=== PATIENT | male | born 1960 | race Caucasian/White ===

== ENCOUNTER 2017-04-24 18:37 | Inpatient (IN) | payer SELFPAY ==
[~2017-04-24] VITALS: Ht 172.7 cm; Wt 90.7 kg
[2017-04-24 19:20] LABS: BASO % 0 % (0-3); EOS % 1 % (0-3); HEMATOCRIT 39.8 % (39.0-53.0); HEMOGLOBIN 13.4 g/dL (13.0-17.5); LYMPH # 1.6 x10^3/uL (1.0-4.8); LYMPH % 18 % (24-48); MEAN CORPUSCULAR HEMOGLOBIN 31 pg (25-35); MEAN CORPUSCULAR HGB CONC 34 g/dL (31-37); MEAN CORPUSCULAR VOLUME 94 fL (79-100); MONO % 8 % (0-9); NEUT % 73 % (31-73); PLATELET COUNT 81 x10^3/uL (140-400); RED BLOOD COUNT 4.26 x10^6/uL (4.30-5.70); WHITE BLOOD COUNT 8.9 x10^3/uL (4.0-11.0)
[2017-04-24] MEDS: fentaNYL PF VIAL 100 MCG/2 ML VIAL IV PRN ×2 (19:20→20:55)
[2017-04-24 19:33] LABS: CALCIUM 8.4 mg/dL (8.5-10.1); CREATININE 0.7 mg/dL (0.7-1.3); GFR 117.5; POTASSIUM 3.6 mmol/L (3.5-5.1)
[2017-04-24 19:37] LABS: ALBUMIN 2.8 g/dL (3.4-5.0); ALBUMIN/GLOBULIN RATIO 0.5 (1.0-1.7); C-REACTIVE PROTEIN 95.8 mg/L (0-3.3); TOTAL BILIRUBIN 0.9 mg/dL (0.2-1.0); TOTAL PROTEIN 8.3 g/dL (6.4-8.2)
[2017-04-24] MEDS ORDERED: CLINDAMYCIN 600MG PREMIX 50 ML IV ONE (20:00)
[2017-04-24] MEDS ORDERED: fentaNYL PF VIAL 100 MCG/2 ML VIAL IV PRN (20:30)
[2017-04-24] MEDS ORDERED: ACETAMINOPHEN 325 MG TABLET. PO PRN (20:30)
[2017-04-24] MEDS ORDERED: ONDANSETRON PF 4 MG/2 ML VIAL. IV PRN (20:30)
--- NOTE | 2017-04-24 20:36 | PHYS DOC ---
Past Medical History Past Medical History: Asthma, Other Additional Past Medical Histor: CELLULITIS,BORDERLINE HTN Past Surgical History: Other Additional Past Surgical Histo: L WRIST ORIF,L KNEE Additional Information: SMOKES OCCASSIONAL CIGAR Alcohol Use: Occasionally Additional Information: DRINKS 2 TO 3 TIMES A WEEK Drug Use: None Adult General Chief Complaint Chief Complaint: LOWER EXTREMITY SWELLING HPI HPI Patient is a 56 year old male who presents with left lower extremity cellulitis. The patient reports onset of left calf swelling & erythema near his knee yesterday, today quickly spread distally to his ankle. Reports pain with ambulation. Denies fevers/chills, vomiting, chest pain, shortness of breath. Current every day smoker. Denies known past medical history, not diabetic. Denies trauma to this leg, no recent travel or surgery. Does not have a PCP. Review of Systems Review of Systems Constitutional: Denies fever or chills HENT: Denies nasal congestion or sore throat Respiratory: Denies cough or shortness of breath Cardiovascular: Denies chest pain or edema GI: Denies abdominal pain, nausea, vomiting Musculoskeletal: Reports calf pain and swelling Integument: Reports redness to calf Neurologic: Denies headache, focal weakness or sensory changes Current Medications Current Medications Current Medications Medications (Trade) Dose Ordered Sig/Marc Start Time Stop Time Status Last Admin Dose Admin Acetaminophen (Tylenol) 650 mg PRN Q4HRS PRN 04/24/17 20:30 04/25/17 20:29 UNV Clindamycin Phosphate 50 ml @ 100 mls/hr 1X ONCE 04/24/17 20:00 04/24/17 20:29 04/24/17 19:53 100 MLS/HR Fentanyl Citrate (Fentanyl 2ml Vial) 50 mcg PRN Q2HR PRN 04/24/17 20:30 04/25/17 20:29 UNV Ondansetron HCl (Zofran) 4 mg PRN Q8HRS PRN 04/24/17 20:30 04/25/17 20:29 UNV Allergies Allergies Allergies Coded Allergies Type Severity Reaction Last Updated Verified Penicillins Allergy Severe ANPHYLAXIS 04/24/17 Yes Uncoded Allergies Type Severity Reaction Last Updated Verified TROY Allergy Severe ANAPHYLAXIS 04/24/17 Physical Exam Physical Exam Constitutional: obese, no acute distress, non-toxic appearance. HENT: Normocephalic, atraumatic, bilateral external ears normal, oropharynx moist, nose normal. Eyes: conjunctiva normal, no discharge. Cardiovascular: RRR, no murmurs, no edema. Lungs & Thorax: LCTAB, no wheezing, no respiratory distress. Abdomen: soft, nontender, nondistended. Skin: see extremity report below. Back: No tenderness. Extremities: left calf diffuse erythema from knee to ankle, swelling, calf tenderness is present, dp/pt 2+, sensation intact to foot, no pain with flexion/ extension at knee or ankle. Neurologic: Alert and oriented X 3, no focal deficits noted. Psychologic: Affect normal, judgement normal, mood normal. Current Patient Data Vital Signs Vital Signs Date Time Temp Pulse Resp B/P (MAP) Pulse Ox O2 Delivery O2 Flow Rate FiO2 04/24/17 19:20 18 97 Room Air 04/24/17 18:48 98.2 86 165/95 (118) 98.2 Lab Values Laboratory Tests Test 04/24/17 19:07 White Blood Count 8.9 x10^3/uL (4.0-11.0) Red Blood Count 4.26 x10^6/uL (4.30-5.70) L Hemoglobin 13.4 g/dL (13.0-17.5) Hematocrit 39.8 % (39.0-53.0) Mean Corpuscular Volume 94 fL (79-100) Mean Corpuscular Hemoglobin 31 pg (25-35) Mean Corpuscular Hemoglobin Concent 34 g/dL (31-37) Red Cell Distribution Width 14.0 % (11.5-14.5) Platelet Count 81 x10^3/uL (140-400) L Neutrophils (%) (Auto) 73 % (31-73) Lymphocytes (%) (Auto) 18 % (24-48) L Monocytes (%) (Auto) 8 % (0-9) Eosinophils (%) (Auto) 1 % (0-3) Basophils (%) (Auto) 0 % (0-3) Neutrophils # (Auto) 6.5 x10^3uL (1.8-7.7) Lymphocytes # (Auto) 1.6 x10^3/uL (1.0-4.8) Monocytes # (Auto) 0.7 x10^3/uL (0.0-1.1) Eosinophils # (Auto) 0.1 x10^3/uL (0.0-0.7) Basophils # (Auto) 0.0 x10^3/uL (0.0-0.2) Sodium Level 133 mmol/L (136-145) L Potassium Level 3.6 mmol/L (3.5-5.1) Chloride Level 97 mmol/L (98-107) L Carbon Dioxide Level 25 mmol/L (21-32) Anion Gap 11 (6-14) Blood Urea Nitrogen 5 mg/dL (8-26) L Creatinine 0.7 mg/dL (0.7-1.3) Estimated GFR (Cockcroft-Gault) 117.5 BUN/Creatinine Ratio 7 (6-20) Glucose Level 205 mg/dL (70-99) H Calcium Level 8.4 mg/dL (8.5-10.1) L Total Bilirubin 0.9 mg/dL (0.2-1.0) Aspartate Amino Transferase (AST) 33 U/L (15-37) Alanine Aminotransferase (ALT) 21 U/L (16-63) Alkaline Phosphatase 101 U/L (46-116) C-Reactive Protein, Quantitative 95.8 mg/L (0-3.3) H Total Protein 8.3 g/dL (6.4-8.2) H Albumin 2.8 g/dL (3.4-5.0) L Albumin/Globulin Ratio 0.5 (1.0-1.7) L Laboratory Tests 04/24/17 19:07 Laboratory Tests 04/24/17 19:07 EKG EKG [] Radiology/Procedures Radiology/Procedures [] Course & Med Decision Making Course & Med Decision Making Pertinent Labs and Imaging studies reviewed. (See chart for details) The patient presents with lower extremity cellulitis which is diffuse and progressed quickly today. Patient is not septic, pain control with medication here. No crepitus on exam to suggest necrotizing infection. I did recommend admission to the hospital for close monitoring and IV antibiotics. The patient agrees with plan of care. Discussed with Dr. Stiles who agrees to admit to inpatient status to a med surg bed. Venous ultrasound is pending at time of admission. Will follow up results or have results called to Dr. Stiles. The patient is being admitted in stable condition. [] Dragon Disclaimer Dragon Disclaimer This electronic medical record was generated, in whole or in part, using a voice recognition dictation system. Departure Departure Impression: Primary Impression: Cellulitis Disposition: ADMITTED INPATIENT Admitting Physician: Maribel Stiles Condition: STABLE Problem Qualifiers Primary Impression: Cellulitis Site of cellulitis: extremity Site of cellulitis of extremity: lower extremity Laterality: left Qualified Codes: L03.116 - Cellulitis of left lower limb MARIAH CHESTER MD Apr 24, 2017 20:36
--- NOTE | 2017-04-24 21:28 | HP ---
ADMIT DATE: 04/24/2017 CHIEF COMPLAINT: Left lower extremity pain, swelling and erythema. HISTORY OF PRESENT ILLNESS: The patient is a pleasant middle-aged white male who developed some cellulitis in his left lower extremity. It has been painful. It has been spreading somewhat rapidly over the past 48 hours. He has got 9/10 pain, but then we gave him some fentanyl. It is down to 3/10. Upon my arrival to the ER, the cellulitis is at the bottom of the knee all the way down to the ankle. I did go ahead and draw markings on it. It is quite erythematous, red and painful. I am concerned he might even have something more serious. I have called orthopedic surgeon, Dr. Jessica Barton. We are going to do some plain films, make sure there is no gas forming organisms. I am going to consult Infectious Disease as well. Make sure we are on the right antibiotics for possible necrotizing fasciitis. PAST MEDICAL HISTORY: Asthma, previous cellulitis, left wrist ORIF, left knee surgery, occasional tobacco abuse. ALLERGIES: PENICILLIN AND TROVAN. FAMILY HISTORY: Diabetes. SOCIAL HISTORY: He drinks socially. He smokes socially. No drugs. MEDICATIONS: Reviewed. REVIEW OF SYSTEMS: GENERAL: No history of weight change, weakness or fevers. SKIN: No bruising, hair changes or rashes. EYES: No blurred, double or loss of vision. NOSE AND THROAT: No history of nosebleeds, hoarseness or sore throat. HEART: No history of palpitations, chest pain or shortness of breath on exertion. LUNGS: Denies cough, hemoptysis, wheezing or shortness of breath. GASTROINTESTINAL: Denies changes in appetite, nausea, vomiting, diarrhea or constipation. GENITOURINARY: No history of frequency, urgency, hesitancy or nocturia. NEUROLOGIC: Denies history of numbness, tingling, tremor or weakness. PSYCHIATRIC: No history of panic, anxiety or depression. ENDOCRINE: No history of heat or cold intolerance, polyuria or polydipsia. EXTREMITIES: He complains of left leg pain and erythema. PHYSICAL EXAMINATION: VITAL SIGNS: Temperature afebrile 98.2, pulse 86, respirations 19, blood pressure 165/95, O2 sat 98%. GENERAL: He is alert, cooperative. His is present. HEART: Normal S1, S2. LUNGS: Clear. ABDOMEN: Soft, positive bowel sounds. EXTREMITIES: The left leg has impressive cellulitis. It is quite erythematous. It is somewhat swollen. It is painful; although, he has received some fentanyl, so it is hard to assess this exactly. ENDOCRINE: No thyromegaly. LYMPHATICS: No cervical nodes. HEMATOPOIETIC: No bruising. LABORATORY DATA: White count 8, hemoglobin 13, platelets 81. Electrolytes: Sodium 133, potassium 3.6, chloride 97, bicarbonate 25, BUN 5, creatinine 0.7, glucose 205, calcium 8.4. C-reactive protein is high at 95.8. Left leg films are pending. We just ordered them. ASSESSMENT AND PLAN: Cellulitis with possible impending progression of disease, perhaps even early necrotizing fasciitis, although we hope that certainly is not the case. For now, he is doing pretty well. He is in the ER. We are going to admit him to the medical floor. I have consulted Dr. Jessica Barton. We are going to consult Dr. Yandel Sandoval, IV antibiotics, p.r.n. pain meds. We are awaiting our images of the left leg to make sure there is no gas forming organisms. HEYDI LANGFORD DO DR: NARESH/german JOB#: [id number] / [id number]
[2017-04-24] MEDS ORDERED: VANCOMYCIN PER PHARMACY MC PRN (21:30)
[2017-04-24] MEDS ORDERED: VANCOMYCIN 1GM IVPB FOR OMNI 250 ML IV ONE (21:30)
--- NOTE | 2017-04-24 21:30 | RAD ---
EXAM: Left lower extremity venous Doppler sonogram. HISTORY: Pain. TECHNIQUE: Olivera scale and color Doppler sonographic evaluation of the left lower extremity veins with spectral waveform analysis was performed. FINDINGS: There is normal color flow, normal compressibility and there are normal spectral waveforms in the left lower extremity veins. IMPRESSION: No Doppler evidence of lower extremity deep venous thrombosis. Electronically signed by: Adwoa Guerrier MD (04/24/2017 9:27 PM) [id number]
--- NOTE | 2017-04-24 21:31 | RAD ---
EXAM: Left tibia and fibula, 2 views. HISTORY: Pain. COMPARISON: None. FINDINGS: Frontal and lateral views of the tibia and talar obtained. There is no fracture, dislocation or subluxation. There is mild medial compartment spurring involving the knee. There is lower extremity soft tissue edema. No foreign body or soft tissue gas is seen. There is no periosteal reaction or suspicious osseous lesion. IMPRESSION: 1. Mild medial compartment predominant osteoarthritis of the left knee. 2. Left lower extremity soft tissue edema. Electronically signed by: Adwoa Guerrier MD (04/24/2017 9:28 PM) [id number]
[2017-04-24] MEDS ORDERED: VANCOMYCIN 2 GM in IV DEXTROSE 5% 500 ML IV ONE (22:00)
[2017-04-24] MEDS ORDERED: CIPROFLOXACIN 400MG PREMIX 200 ML IV ONE (22:00)
[2017-04-24] MEDS ORDERED: CONTRAST GIVEN MC PRN (22:00)
--- NOTE | 2017-04-24 22:01 | RAD ---
EXAM: Left lower extremity CT with intravenous contrast. HISTORY: Redness and swelling. Clinical concern for necrotizing fasciitis. TECHNIQUE: Computed tomographic images of the left lower extremity were obtained following the administration of 75 cc Omnipaque 300 intravenous contrast. *One or more of the following individualized dose reduction techniques were utilized for this examination: 1. Automated exposure control. 2. Adjustment of the mA and/or kV according to patient size. 3. Use of iterative reconstruction technique. COMPARISON: Radiographs of a sonogram performed on the same date. FINDINGS: There is stranding within the subcutaneous fat of the left lower extremity and ankle due to edema. No soft tissue gas is seen. The visualized lower extremity vessels are unremarkable. No mass or loculated fluid collection to suggest abscess is seen. There is no muscle atrophy. There is no radiodense foreign body. There is mild medial and patellofemoral compartment spurring of the knee. There is no lytic or sclerotic osseous lesion or periosteal reaction. There are tiny ossicles inferior to the medial and lateral malleoli, likely due to the sequela of remote injury. The ankle mortise is intact. No osteochondral lesion is seen. There is trace knee joint fluid. IMPRESSION: 1. Soft tissue edema within the left lower extremity. No abscess or soft tissue gas is seen. 2. Mild medial and patellofemoral compartment osteoarthritis of the left knee with trace joint fluid. Electronically signed by: Adwoa Guerrier MD (04/24/2017 9:57 PM) [id number]
[2017-04-24] MEDS ORDERED: IOHEXOL 300 MG/ML 75 ML VIAL IV ONE (22:30)
[2017-04-24 23:15] VITALS: BP 140/90
[2017-04-24 23:30] VITALS: BP 153/89
[2017-04-24 23:45] VITALS: BP 161/92
[2017-04-25] VITALS (11 sets, daily range): BP systolic 98–173; BP diastolic 55–96
[2017-04-25 06:05] LABS: BASO % 1 % (0-3); EOS % 3 % (0-3); HEMATOCRIT 39.7 % (39.0-53.0); HEMOGLOBIN 13.1 g/dL (13.0-17.5); LYMPH # 1.9 x10^3/uL (1.0-4.8); LYMPH % 26 % (24-48); MEAN CORPUSCULAR HEMOGLOBIN 31 pg (25-35); MEAN CORPUSCULAR HGB CONC 33 g/dL (31-37); MEAN CORPUSCULAR VOLUME 94 fL (79-100); MONO % 9 % (0-9); NEUT % 62 % (31-73); PLATELET COUNT 88 x10^3/uL (140-400); RED BLOOD COUNT 4.22 x10^6/uL (4.30-5.70); RED CELL DISTRIBUTION WIDTH 14.3 % (11.5-14.5); WHITE BLOOD COUNT 7.2 x10^3/uL (4.0-11.0)
[2017-04-25] MEDS: VANCOMYCIN 1.5 GM in IV DEXTROSE 5% 500 ML IV SCH ×2 (06:23→14:15)
[2017-04-25 08:21] LABS: CALCIUM 8.2 mg/dL (8.5-10.1); CREATININE 0.7 mg/dL (0.7-1.3); GFR 117.5; POTASSIUM 3.7 mmol/L (3.5-5.1)
[2017-04-25] MEDS ORDERED: cloNIDine HCL 0.1 MG TABLET PO PRN (09:30)
[2017-04-25] MEDS ORDERED: ONDANSETRON PF 4 MG/2 ML VIAL. IV PRN (09:30)
[2017-04-25] MEDS ORDERED: HYDROcodone/APAP 5/325MG 1 TAB TABLET PO PRN (09:30)
--- NOTE | 2017-04-25 09:38 | PDOC ---
Infectious Disease Note Vital Sign Vital Signs Vital Signs Date Time Temp Pulse Resp B/P (MAP) Pulse Ox O2 Delivery O2 Flow Rate FiO2 04/25/17 08:00 98.5 88 18 165/96 (119) Room Air 98.5 04/25/17 05:04 99 04/25/17 00:00 Labs Lab Laboratory Tests Test 04/24/17 19:07 04/25/17 05:00 04/25/17 05:10 White Blood Count 8.9 x10^3/uL (4.0-11.0) 7.2 x10^3/uL (4.0-11.0) Red Blood Count 4.26 x10^6/uL (4.30-5.70) 4.22 x10^6/uL (4.30-5.70) Hemoglobin 13.4 g/dL (13.0-17.5) 13.1 g/dL (13.0-17.5) Hematocrit 39.8 % (39.0-53.0) 39.7 % (39.0-53.0) Mean Corpuscular Volume 94 fL (79-100) 94 fL (79-100) Mean Corpuscular Hemoglobin 31 pg (25-35) 31 pg (25-35) Mean Corpuscular Hemoglobin Concent 34 g/dL (31-37) 33 g/dL (31-37) Red Cell Distribution Width 14.0 % (11.5-14.5) 14.3 % (11.5-14.5) Platelet Count 81 x10^3/uL (140-400) 88 x10^3/uL (140-400) Neutrophils (%) (Auto) 73 % (31-73) 62 % (31-73) Lymphocytes (%) (Auto) 18 % (24-48) 26 % (24-48) Monocytes (%) (Auto) 8 % (0-9) 9 % (0-9) Eosinophils (%) (Auto) 1 % (0-3) 3 % (0-3) Basophils (%) (Auto) 0 % (0-3) 1 % (0-3) Neutrophils # (Auto) 6.5 x10^3uL (1.8-7.7) 4.5 x10^3uL (1.8-7.7) Lymphocytes # (Auto) 1.6 x10^3/uL (1.0-4.8) 1.9 x10^3/uL (1.0-4.8) Monocytes # (Auto) 0.7 x10^3/uL (0.0-1.1) 0.6 x10^3/uL (0.0-1.1) Eosinophils # (Auto) 0.1 x10^3/uL (0.0-0.7) 0.2 x10^3/uL (0.0-0.7) Basophils # (Auto) 0.0 x10^3/uL (0.0-0.2) 0.0 x10^3/uL (0.0-0.2) Erythrocyte Sedimentation Rate 48 (0-15) Sodium Level 133 mmol/L (136-145) 136 mmol/L (136-145) Potassium Level 3.6 mmol/L (3.5-5.1) 3.7 mmol/L (3.5-5.1) Chloride Level 97 mmol/L (98-107) 101 mmol/L (98-107) Carbon Dioxide Level 25 mmol/L (21-32) 27 mmol/L (21-32) Anion Gap 11 (6-14) 8 (6-14) Blood Urea Nitrogen 5 mg/dL (8-26) 7 mg/dL (8-26) Creatinine 0.7 mg/dL (0.7-1.3) 0.7 mg/dL (0.7-1.3) Estimated GFR (Cockcroft-Gault) 117.5 117.5 BUN/Creatinine Ratio 7 (6-20) Glucose Level 205 mg/dL (70-99) 135 mg/dL (70-99) Calcium Level 8.4 mg/dL (8.5-10.1) 8.2 mg/dL (8.5-10.1) Total Bilirubin 0.9 mg/dL (0.2-1.0) Aspartate Amino Transf (AST/SGOT) 33 U/L (15-37) Alanine Aminotransferase (ALT/SGPT) 21 U/L (16-63) Alkaline Phosphatase 101 U/L (46-116) C-Reactive Protein, Quantitative 95.8 mg/L (0-3.3) Total Protein 8.3 g/dL (6.4-8.2) Albumin 2.8 g/dL (3.4-5.0) Albumin/Globulin Ratio 0.5 (1.0-1.7) Objective Assessment Cellulitis left lower extremity OA left knee. PCN and trovafloxacin allergy - swelling and burning sensation HTN Plan Plan of Care Clinically improving, Continue vanc for now Leg elevation Thank you [phone] Attending Co-Sign The patient was seen and interviewed as well as examined at the bedside. The chart was reviewed. The case was discussed. Agree with the plan of care. RAFAELA ROCHA APRN Apr 25, 2017 09:38 FRANCISCO GIL MD Apr 28, 2017 10:55
--- NOTE | 2017-04-25 10:20 | PDOC2 ---
CONSULT Date of Consult Date of Consult DATE: 04/25/17 TIME: : Reason for Consult Reason for Consult: left leg cellulitis Referring Physician Referring Physician: Dr. Stiles Identification/Chief Complaint Chief Complaint left leg pain, swelling Problems: Source Source: Chart review, Patient History of Present Illness Reason for Visit: The patient is a 56 year old man who presented to the ER yesterday with left leg pain, redness, and swelling that was worsening rapidly. I was called by Dr. Stiles for concern of possible necrotizing fascitiis. The patient was stable clinically and started on IV antibiotics. Xrays revealed no subcutaneous gas, he reportedly had no crepitus on exam. Overnight his exam improved with antibiotics and he has remained stable. As I entered his room today he was preparing to be discharged. Past Medical History Past Medical History no pertinent history Past Surgical History Past Surgical History: No pertinent history Family History Family History none Social History No ALCOHOL: none Drugs: None Lives: with Family Current Problem List Problem List Problems Medical Problems: (1) Cellulitis Status: Acute Current Medications Current Medications Current Medications Fentanyl Citrate (Fentanyl 2ml Vial) 50 mcg PRN Q15MIN PRN IV PAIN GREATER THAN 3/10 Last administered on 04/24/17 20:55; Start 04/24/17 at 19:15; Stop 04/24/17 at 23:00; Status DC Clindamycin Phosphate 50 ml @ 100 mls/hr 1X ONCE IV Last administered on t 19:53; Start 04/24/17 at 20:00; Stop 04/24/17 at 20:29; Status DC Ondansetron HCl (Zofran) 4 mg PRN Q8HRS PRN IV NAUSEA/VOMITING; Start at 20:30; Stop 04/25/17 at 09:25; Status DC Fentanyl Citrate (Fentanyl 2ml Vial) 50 mcg PRN Q2HR PRN IV PAIN; Start at 20:30; Stop 04/25/17 at 20:29 Acetaminophen (Tylenol) 650 mg PRN Q4HRS PRN PO FEVER; Start 04/24/17 at 20:30 ; Stop 04/25/17 at 20:29 Vancomycin HCl 250 ml @ 250 mls/hr 1X ONCE IV ; Start 04/24/17 at 21:30; Stop 04/24/17 at 22:29; Status UNV Metronidazole 100 ml @ 100 mls/hr 1X ONCE IV ; Start 04/24/17 at 21:30; Stop 04/24/17 at 21:30; Status DC Ciprofloxacin/ Dextrose 200 ml @ 200 mls/hr 1X ONCE IV Last administered on 04/24/17 21:32; Start 04/24/17 at 22:00; Stop 04/24/17 at 22:59; Status DC Vancomycin HCl (Vanco Per Pharmacy) 1 each PRN DAILY PRN MC SEE COMMENTS Last administered on 04/25/17 02:06; Start 04/24/17 at 21:30 Vancomycin HCl 2 gm/Dextrose 500 ml @ 250 mls/hr 1X ONCE IV Last administered on 04/24/17 23:14; Start 04/24/17 at 22:00; Stop 04/24/17 at 23 :59; Status DC Iohexol (Omnipaque 300 Mg/ml) 75 ml 1X ONCE IV ; Start 04/24/17 at 22:30; Stop 04/24/17 at 22:31; Status DC Info (Do NOT chart on this entry -- for MONITORING) 1 each PRN DAILY PRN MC SEE COMMENTS; Start 04/24/17 at 22:00; Stop 04/26/17 at 21:59 Vancomycin HCl 1.5 gm/Dextrose 500 ml @ 250 mls/hr Q8HRS IV Last administered on 04/25/17 06:23; Start 04/25/17 at 06:00 Vancomycin HCl 1 each 1X ONCE MC ; Start 04/25/17 at 21:30; Stop 04/25/17 at 21:31 Ondansetron HCl (Zofran) 4 mg PRN Q6HRS PRN IV NAUSEA/VOMITING; Start at 09:30 Acetaminophen/ Hydrocodone Bitart (Lortab 5/325) 1 tab PRN Q4HRS PRN PO PAIN; Start 04/25/17 at 09:30 Clonidine HCl (Catapres) 0.1 mg PRN Q1HR PRN PO HYPERTENSION, SEE COMMENTS; Start 04/25/17 at 09:30 Lactobacillus Rhamnosus (Culturelle) 1 cap BID PO ; Start 04/25/17 at 21:00 Allergies Allergies: Coded Allergies: Penicillins (Verified Allergy, Severe, ANPHYLAXIS, 04/24/17) trovafloxacin (Verified Allergy, Severe, Anaphylaxis, 04/25/17) Anaphylactic ROS Review of System all systems were reviewed and were found to be negative except for HPI. General: No: Chills, Night Sweats, Fatigue, Malaise, Appetite, Other Musculoskeletal: Yes Pain In:, Yes Swelling In: (left leg) Physical Exam General: Alert, Oriented X3, Cooperative, No acute distress HEENT: Atraumatic Lungs: Normal air movement MUSCULOSKELETAL: Other (left leg is swollen and erythematous with a 1 cm cut and scab laterally. erythema well within the borders that were marked before. mild tenderness to palpation over the erythema. neurovascularly intact distally. no crepitus. ) Vitals VITALS Vital Signs Date Time Temp Pulse Resp B/P (MAP) Pulse Ox O2 Delivery O2 Flow Rate FiO2 04/25/17 08:00 98.5 88 18 165/96 (119) Room Air 98.5 04/25/17 05:04 99 04/25/17 00:00 Labs Labs Laboratory Tests Test 04/24/17 19:07 04/25/17 05:00 04/25/17 05:10 White Blood Count 8.9 x10^3/uL (4.0-11.0) 7.2 x10^3/uL (4.0-11.0) Red Blood Count 4.26 x10^6/uL (4.30-5.70) 4.22 x10^6/uL (4.30-5.70) Hemoglobin 13.4 g/dL (13.0-17.5) 13.1 g/dL (13.0-17.5) Hematocrit 39.8 % (39.0-53.0) 39.7 % (39.0-53.0) Mean Corpuscular Volume 94 fL (79-100) 94 fL (79-100) Mean Corpuscular Hemoglobin 31 pg (25-35) 31 pg (25-35) Mean Corpuscular Hemoglobin Concent 34 g/dL (31-37) 33 g/dL (31-37) Red Cell Distribution Width 14.0 % (11.5-14.5) 14.3 % (11.5-14.5) Platelet Count 81 x10^3/uL (140-400) 88 x10^3/uL (140-400) Neutrophils (%) (Auto) 73 % (31-73) 62 % (31-73) Lymphocytes (%) (Auto) 18 % (24-48) 26 % (24-48) Monocytes (%) (Auto) 8 % (0-9) 9 % (0-9) Eosinophils (%) (Auto) 1 % (0-3) 3 % (0-3) Basophils (%) (Auto) 0 % (0-3) 1 % (0-3) Neutrophils # (Auto) 6.5 x10^3uL (1.8-7.7) 4.5 x10^3uL (1.8-7.7) Lymphocytes # (Auto) 1.6 x10^3/uL (1.0-4.8) 1.9 x10^3/uL (1.0-4.8) Monocytes # (Auto) 0.7 x10^3/uL (0.0-1.1) 0.6 x10^3/uL (0.0-1.1) Eosinophils # (Auto) 0.1 x10^3/uL (0.0-0.7) 0.2 x10^3/uL (0.0-0.7) Basophils # (Auto) 0.0 x10^3/uL (0.0-0.2) 0.0 x10^3/uL (0.0-0.2) Erythrocyte Sedimentation Rate 48 (0-15) Sodium Level 133 mmol/L (136-145) 136 mmol/L (136-145) Potassium Level 3.6 mmol/L (3.5-5.1) 3.7 mmol/L (3.5-5.1) Chloride Level 97 mmol/L (98-107) 101 mmol/L (98-107) Carbon Dioxide Level 25 mmol/L (21-32) 27 mmol/L (21-32) Anion Gap 11 (6-14) 8 (6-14) Blood Urea Nitrogen 5 mg/dL (8-26) 7 mg/dL (8-26) Creatinine 0.7 mg/dL (0.7-1.3) 0.7 mg/dL (0.7-1.3) Estimated GFR (Cockcroft-Gault) 117.5 117.5 BUN/Creatinine Ratio 7 (6-20) Glucose Level 205 mg/dL (70-99) 135 mg/dL (70-99) Calcium Level 8.4 mg/dL (8.5-10.1) 8.2 mg/dL (8.5-10.1) Total Bilirubin 0.9 mg/dL (0.2-1.0) Aspartate Amino Transf (AST/SGOT) 33 U/L (15-37) Alanine Aminotransferase (ALT/SGPT) 21 U/L (16-63) Alkaline Phosphatase 101 U/L (46-116) C-Reactive Protein, Quantitative 95.8 mg/L (0-3.3) Total Protein 8.3 g/dL (6.4-8.2) Albumin 2.8 g/dL (3.4-5.0) Albumin/Globulin Ratio 0.5 (1.0-1.7) Laboratory Tests Test 04/24/17 19:07 04/25/17 05:00 04/25/17 05:10 White Blood Count 8.9 x10^3/uL (4.0-11.0) 7.2 x10^3/uL (4.0-11.0) Red Blood Count 4.26 x10^6/uL (4.30-5.70) 4.22 x10^6/uL (4.30-5.70) Hemoglobin 13.4 g/dL (13.0-17.5) 13.1 g/dL (13.0-17.5) Hematocrit 39.8 % (39.0-53.0) 39.7 % (39.0-53.0) Mean Corpuscular Volume 94 fL (79-100) 94 fL (79-100) Mean Corpuscular Hemoglobin 31 pg (25-35) 31 pg (25-35) Mean Corpuscular Hemoglobin Concent 34 g/dL (31-37) 33 g/dL (31-37) Red Cell Distribution Width 14.0 % (11.5-14.5) 14.3 % (11.5-14.5) Platelet Count 81 x10^3/uL (140-400) 88 x10^3/uL (140-400) Neutrophils (%) (Auto) 73 % (31-73) 62 % (31-73) Lymphocytes (%) (Auto) 18 % (24-48) 26 % (24-48) Monocytes (%) (Auto) 8 % (0-9) 9 % (0-9) Eosinophils (%) (Auto) 1 % (0-3) 3 % (0-3) Basophils (%) (Auto) 0 % (0-3) 1 % (0-3) Neutrophils # (Auto) 6.5 x10^3uL (1.8-7.7) 4.5 x10^3uL (1.8-7.7) Lymphocytes # (Auto) 1.6 x10^3/uL (1.0-4.8) 1.9 x10^3/uL (1.0-4.8) Monocytes # (Auto) 0.7 x10^3/uL (0.0-1.1) 0.6 x10^3/uL (0.0-1.1) Eosinophils # (Auto) 0.1 x10^3/uL (0.0-0.7) 0.2 x10^3/uL (0.0-0.7) Basophils # (Auto) 0.0 x10^3/uL (0.0-0.2) 0.0 x10^3/uL (0.0-0.2) Erythrocyte Sedimentation Rate 48 (0-15) Sodium Level 133 mmol/L (136-145) 136 mmol/L (136-145) Potassium Level 3.6 mmol/L (3.5-5.1) 3.7 mmol/L (3.5-5.1) Chloride Level 97 mmol/L (98-107) 101 mmol/L (98-107) Carbon Dioxide Level 25 mmol/L (21-32) 27 mmol/L (21-32) Anion Gap 11 (6-14) 8 (6-14) Blood Urea Nitrogen 5 mg/dL (8-26) 7 mg/dL (8-26) Creatinine 0.7 mg/dL (0.7-1.3) 0.7 mg/dL (0.7-1.3) Estimated GFR (Cockcroft-Gault) 117.5 117.5 BUN/Creatinine Ratio 7 (6-20) Glucose Level 205 mg/dL (70-99) 135 mg/dL (70-99) Calcium Level 8.4 mg/dL (8.5-10.1) 8.2 mg/dL (8.5-10.1) Total Bilirubin 0.9 mg/dL (0.2-1.0) Aspartate Amino Transf (AST/SGOT) 33 U/L (15-37) Alanine Aminotransferase (ALT/SGPT) 21 U/L (16-63) Alkaline Phosphatase 101 U/L (46-116) C-Reactive Protein, Quantitative 95.8 mg/L (0-3.3) Total Protein 8.3 g/dL (6.4-8.2) Albumin 2.8 g/dL (3.4-5.0) Albumin/Globulin Ratio 0.5 (1.0-1.7) Assessment/Plan Assessment/Plan The patient has cellulitus of the left leg, much improved overnight with IV antibiotics. He is getting ready to be discharged. No surgical intervention necessary. MATI WINCHESTER MD Apr 25, 2017 10:20
[2017-04-25] MEDS ORDERED: CLIN300C8 PO ×3 (10:32→16:39)
--- NOTE | 2017-04-25 10:34 | PDOC3 ---
Discharge Summary Visit Information Date of Admission: Apr 24, 2017 Date of Discharge: Apr 25, 2017 Admitting Diagnosis Comment: Cellulitis left leg Final Diagnosis Problems Medical Problems: (1) Cellulitis Status: Acute Brief Hospital Course Allergies Allergies Coded Allergies Type Severity Reaction Last Updated Verified Penicillins Allergy Severe ANPHYLAXIS 04/24/17 Yes trovafloxacin Allergy Severe Anaphylaxis 04/25/17 Yes Vital Signs Vital Signs Date Time Temp Pulse Resp B/P (MAP) Pulse Ox O2 Delivery O2 Flow Rate FiO2 04/25/17 08:00 98.5 88 18 165/96 (119) Room Air 98.5 04/25/17 05:04 99 04/25/17 00:00 Lab Results Laboratory Tests Test 04/24/17 19:07 04/25/17 05:00 04/25/17 05:10 White Blood Count 8.9 x10^3/uL (4.0-11.0) 7.2 x10^3/uL (4.0-11.0) Red Blood Count 4.26 x10^6/uL (4.30-5.70) 4.22 x10^6/uL (4.30-5.70) Hemoglobin 13.4 g/dL (13.0-17.5) 13.1 g/dL (13.0-17.5) Hematocrit 39.8 % (39.0-53.0) 39.7 % (39.0-53.0) Mean Corpuscular Volume 94 fL (79-100) 94 fL (79-100) Mean Corpuscular Hemoglobin 31 pg (25-35) 31 pg (25-35) Mean Corpuscular Hemoglobin Concent 34 g/dL (31-37) 33 g/dL (31-37) Red Cell Distribution Width 14.0 % (11.5-14.5) 14.3 % (11.5-14.5) Platelet Count 81 x10^3/uL (140-400) 88 x10^3/uL (140-400) Neutrophils (%) (Auto) 73 % (31-73) 62 % (31-73) Lymphocytes (%) (Auto) 18 % (24-48) 26 % (24-48) Monocytes (%) (Auto) 8 % (0-9) 9 % (0-9) Eosinophils (%) (Auto) 1 % (0-3) 3 % (0-3) Basophils (%) (Auto) 0 % (0-3) 1 % (0-3) Neutrophils # (Auto) 6.5 x10^3uL (1.8-7.7) 4.5 x10^3uL (1.8-7.7) Lymphocytes # (Auto) 1.6 x10^3/uL (1.0-4.8) 1.9 x10^3/uL (1.0-4.8) Monocytes # (Auto) 0.7 x10^3/uL (0.0-1.1) 0.6 x10^3/uL (0.0-1.1) Eosinophils # (Auto) 0.1 x10^3/uL (0.0-0.7) 0.2 x10^3/uL (0.0-0.7) Basophils # (Auto) 0.0 x10^3/uL (0.0-0.2) 0.0 x10^3/uL (0.0-0.2) Erythrocyte Sedimentation Rate 48 (0-15) Sodium Level 133 mmol/L (136-145) 136 mmol/L (136-145) Potassium Level 3.6 mmol/L (3.5-5.1) 3.7 mmol/L (3.5-5.1) Chloride Level 97 mmol/L (98-107) 101 mmol/L (98-107) Carbon Dioxide Level 25 mmol/L (21-32) 27 mmol/L (21-32) Anion Gap 11 (6-14) 8 (6-14) Blood Urea Nitrogen 5 mg/dL (8-26) 7 mg/dL (8-26) Creatinine 0.7 mg/dL (0.7-1.3) 0.7 mg/dL (0.7-1.3) Estimated GFR (Cockcroft-Gault) 117.5 117.5 BUN/Creatinine Ratio 7 (6-20) Glucose Level 205 mg/dL (70-99) 135 mg/dL (70-99) Calcium Level 8.4 mg/dL (8.5-10.1) 8.2 mg/dL (8.5-10.1) Total Bilirubin 0.9 mg/dL (0.2-1.0) Aspartate Amino Transf (AST/SGOT) 33 U/L (15-37) Alanine Aminotransferase (ALT/SGPT) 21 U/L (16-63) Alkaline Phosphatase 101 U/L (46-116) C-Reactive Protein, Quantitative 95.8 mg/L (0-3.3) Total Protein 8.3 g/dL (6.4-8.2) Albumin 2.8 g/dL (3.4-5.0) Albumin/Globulin Ratio 0.5 (1.0-1.7) Laboratory Tests Test 04/24/17 19:07 04/25/17 05:00 04/25/17 05:10 White Blood Count 8.9 x10^3/uL (4.0-11.0) 7.2 x10^3/uL (4.0-11.0) Red Blood Count 4.26 x10^6/uL (4.30-5.70) 4.22 x10^6/uL (4.30-5.70) Hemoglobin 13.4 g/dL (13.0-17.5) 13.1 g/dL (13.0-17.5) Hematocrit 39.8 % (39.0-53.0) 39.7 % (39.0-53.0) Mean Corpuscular Volume 94 fL (79-100) 94 fL (79-100) Mean Corpuscular Hemoglobin 31 pg (25-35) 31 pg (25-35) Mean Corpuscular Hemoglobin Concent 34 g/dL (31-37) 33 g/dL (31-37) Red Cell Distribution Width 14.0 % (11.5-14.5) 14.3 % (11.5-14.5) Platelet Count 81 x10^3/uL (140-400) 88 x10^3/uL (140-400) Neutrophils (%) (Auto) 73 % (31-73) 62 % (31-73) Lymphocytes (%) (Auto) 18 % (24-48) 26 % (24-48) Monocytes (%) (Auto) 8 % (0-9) 9 % (0-9) Eosinophils (%) (Auto) 1 % (0-3) 3 % (0-3) Basophils (%) (Auto) 0 % (0-3) 1 % (0-3) Neutrophils # (Auto) 6.5 x10^3uL (1.8-7.7) 4.5 x10^3uL (1.8-7.7) Lymphocytes # (Auto) 1.6 x10^3/uL (1.0-4.8) 1.9 x10^3/uL (1.0-4.8) Monocytes # (Auto) 0.7 x10^3/uL (0.0-1.1) 0.6 x10^3/uL (0.0-1.1) Eosinophils # (Auto) 0.1 x10^3/uL (0.0-0.7) 0.2 x10^3/uL (0.0-0.7) Basophils # (Auto) 0.0 x10^3/uL (0.0-0.2) 0.0 x10^3/uL (0.0-0.2) Erythrocyte Sedimentation Rate 48 (0-15) Sodium Level 133 mmol/L (136-145) 136 mmol/L (136-145) Potassium Level 3.6 mmol/L (3.5-5.1) 3.7 mmol/L (3.5-5.1) Chloride Level 97 mmol/L (98-107) 101 mmol/L (98-107) Carbon Dioxide Level 25 mmol/L (21-32) 27 mmol/L (21-32) Anion Gap 11 (6-14) 8 (6-14) Blood Urea Nitrogen 5 mg/dL (8-26) 7 mg/dL (8-26) Creatinine 0.7 mg/dL (0.7-1.3) 0.7 mg/dL (0.7-1.3) Estimated GFR (Cockcroft-Gault) 117.5 117.5 BUN/Creatinine Ratio 7 (6-20) Glucose Level 205 mg/dL (70-99) 135 mg/dL (70-99) Calcium Level 8.4 mg/dL (8.5-10.1) 8.2 mg/dL (8.5-10.1) Total Bilirubin 0.9 mg/dL (0.2-1.0) Aspartate Amino Transf (AST/SGOT) 33 U/L (15-37) Alanine Aminotransferase (ALT/SGPT) 21 U/L (16-63) Alkaline Phosphatase 101 U/L (46-116) C-Reactive Protein, Quantitative 95.8 mg/L (0-3.3) Total Protein 8.3 g/dL (6.4-8.2) Albumin 2.8 g/dL (3.4-5.0) Albumin/Globulin Ratio 0.5 (1.0-1.7) Brief Hospital Course Mr. Thompson is a 56 old male, non DM, comes in with quick spreading of left leg redness, rash, swelling, no fevers, from left knee to left ankle, INitial concerns for nec fasciitis so admittted with IV Vanc TID, Better after 2 doses. NO fevers, NOrmal WBC< ESR 40s, Will get last dose later 2 PM then home on PO clinda 600 TID x 7 days Seen and examined Dw [employer] and DR. Barton ortho Proc: none Dispo: home time 34 mins Discharge Information Condition at Discharge: Improved, Stable Disposition/Orders: D/C to Home ALEIDA VAUGHAN MD Apr 25, 2017 10:34
--- NOTE | 2017-04-25 13:41 | EKG ---
[facility] [address] [place] [address] Test Date: 2017-04-24 Test Time: 18:51:11 Pat Name: MARQUISE BARKER Department: Room: 104 1 Gender: M [employer]: : [id number] Requested By: HEYDI LANGFORD Order Number: [id number] Reading MD: Lynette Villalba Measurements Intervals [place] Rate: 87 P: 41 WI: 168 QRS: 1 QRSD: 84 T: 20 QT: 356 QTc: 434 Interpretive Statements SINUS RHYTHM NORMAL ECG Electronically Signed On 04-25-2017 17:04:50 CDT by Lynette Villalba
--- NOTE | 2017-04-25 15:36 | CONS ---
DATE OF CONSULTATION: 04/24/2017 REQUESTING PHYSICIAN: Dr. Stiles. REASON FOR CONSULTATION: Questionable necrotizing fasciitis. 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 He recalls on Wednesday, about 4 nights ago, he slipped and almost fell. He denies any pop. The following morning he noticed swelling below the left knee. He took ibuprofen, which upset his stomach some. Later, in the middle of his shift he developed worsening pain and that progressed to the point where he had trouble walking. He had developed redness that also progressively worsened. He was referred to the ER from a [facility]. He was afebrile with a normal white blood cell count and a sed rate of 48. A venous Doppler ultrasound showed no evidence of deep vein thrombosis. A CT scan revealed soft tissue edema without abscess or soft tissue gas; and mild medial and popliteal femoral compartment osteoarthritis of the left knee with trace joint fluid. He was dosed with vancomycin, clindamycin, metronidazole and ciprofloxacin in the ER. Since admission, the patient feels his leg is less red, swollen and painful. He got up earlier and walked without difficulty. He is a nondiabetic. Denies chronic swelling in the lower extremities. He has a history of cellulitis of the right elbow many years ago. The patient is hoping to return home soon to attend [employer] tomorrow night. PAST MEDICAL HISTORY: Asthma, hypertension, history of cellulitis of the right elbow. PAST SURGICAL HISTORY: Left wrist open reduction and internal fixation. Left knee surgery for torn meniscus. SOCIAL HISTORY: The patient is ; however, he lives with his ex- and is dating. He smokes occasional cigar and has 2-3 alcoholic beverages a week. 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 He has tattoos that were professionally done. ALLERGIES: PENICILLIN CAUSING SWELLING AND BURNING SENSATION OF EXTREMITIES. TROVAFLOXACIN CAUSING SWELLING AND BURNING SENSATIONS WELL. MEDICATIONS: Vancomycin, one-time dose of ciprofloxacin, one-time dose of clindamycin, one-time dose of metronidazole, fentanyl, ondansetron, Tylenol. REVIEW OF SYSTEMS: The patient denies headache, nasal/sinus congestion or sore throat. Denies cough, shortness of air or chest discomfort. Denies palpitations or wheezing. Denies nausea, vomiting, or diarrhea. Denies rash. Denies dysuria, frequency or urgency. PHYSICAL EXAMINATION: GENERAL: male, propped up in bed, in no apparent distress. VITAL SIGNS: Temperature is 98.5, blood pressure 165/96, heart rate 88, respiratory rate 18, pulse oximetry 99% on room air. Weight is 200 pounds. BMI 30. HEENT: Pupils equally round. Normal conjunctivae. Oral mucosa pink and moist. NECK: Supple. LUNGS: Clear. HEART: Normal S1 and S2. ABDOMEN: Nondistended. Bowel sounds present. Soft, nontender. EXTREMITIES: Left lower extremity is red, warm and mildly swollen. He has localized mild tenderness below knee. Distal pulses palpable. The redness does not pass marked lines. Other extremities unremarkable. SKIN: Without rash. NEUROLOGIC: Alert and oriented x 3. Moves all extremities. LABORATORY DATA: Today's WBC is 7.2, hemoglobin 13.1, platelet count 88,000. Sed rate 48. Electrolytes are unremarkable. Creatinine is 0.7, BUN 7, glucose 135. CRP 95.8, albumin 2.8, total bilirubin 0.9, AST 33, ALT 21. Venous Doppler ultrasound and lower extremity CT scan per HPI. Tibia/fibula x-ray shows soft tissue edema and mild medial compartment predominant osteoarthritis of left knee. MRSA screen pending. ASSESSMENT: 1. Cellulitis of the left lower extremity. 2. Osteoarthritis, left knee. 3. PENICILLIN AND TROVAFLOXACIN ALLERGY causing swelling and burning sensation. 4. Hypertension. PLAN: The patient is clinically improving. Continue the vancomycin for now. Leg elevation. Thank you, Dr. Stiles, for allowing us to participate in this patient's care. Should you have further questions or concerns, please call. FRANCISCO GIL MD DR: LILA/german JOB#: [id number] / [id number]
[2017-04-25] MEDS ORDERED: CEPH-264 PO (15:39)
[2017-04-25] MEDS ORDERED: FLUC200T PO (15:40)
[2017-04-25] MEDS ORDERED: CEPHALEXIN 250 MG CAPSULE. PO ONE (15:45)
[2017-04-25] MEDS ORDERED: LACTOBACILLUS RHAMNOSUS GG 1 CAPSULE. PO SCH (21:00)
== END 2017-04-25 17:30 | disposition home or self-care (01) | DRG 602 ==
LOC: ER 18:37 → 5 NORTH 19:50 → 1 WEST ICU 22:42
PROVIDERS: ADMIT Internal Medicine; ATTEND Internal Medicine
DX: L03.116 Cellulitis of left lower limb (principal); M72.6 Necrotizing fasciitis; F17.290 Nicotine dependence, other tobacco product, uncomplicated; W01.0XXA Fall on same level from slipping, tripping and stumbling without subsequent striking against object, initial encounter; M17.12 Unilateral primary osteoarthritis, left knee; I10 Essential (primary) hypertension; J45.909 Unspecified asthma, uncomplicated; Y93.89 Activity, other specified; Y92.89 Other specified places as the place of occurrence of the external cause; Y99.8 Other external cause status; Z83.3 Family history of diabetes mellitus; Z88.1 Allergy status to other antibiotic agents; Z88.0 Allergy status to penicillin; M79.89 Other specified soft tissue disorders; T37.8X5A Adverse effect of other specified systemic anti-infectives and antiparasitics, initial encounter; R20.2 Paresthesia of skin
CPT/HCPCS: 36415; 73590; 73701; 80048; 80053; 85025; 85651; 86140; 87641; 93005; 93971; 96365; 96366; 96367; 96375; J0744; J3010; J3370; J3490; 99285-25

== ENCOUNTER 2018-01-14 07:41 | Emergency (ER) | payer SELFPAY ==
[2018-01-14 07:59] LABS: ADD MAN DIFF? NO
[2018-01-14 08:05] LABS: BASO # 0.1 x10^3/uL (0.0-0.2); BASO % 1 % (0-3); EOS # 0.1 x10^3/uL (0.0-0.7); EOS % 2 % (0-3); HEMATOCRIT 40.1 % (39.0-53.0); HEMOGLOBIN 13.4 g/dL (13.0-17.5); LYMPH # 2.4 x10^3/uL (1.0-4.8); LYMPH % 51 % (24-48); MEAN CORPUSCULAR HEMOGLOBIN 30 pg (25-35); MEAN CORPUSCULAR HGB CONC 33 g/dL (31-37); MEAN CORPUSCULAR VOLUME 91 fL (79-100); MONO # 0.4 x10^3/uL (0.0-1.1); MONO % 9 % (0-9); NEUT # 1.7 x10^3uL (1.8-7.7); NEUT % 36 % (31-73); PLATELET COUNT 126 x10^3/uL (140-400); RED CELL DISTRIBUTION WIDTH 16.7 % (11.5-14.5); WHITE BLOOD COUNT 4.7 x10^3/uL (4.0-11.0)
[2018-01-14 08:11] LABS: ANION GAP 9 (6-14); BLOOD UREA NITROGEN 5 mg/dL (8-26); BUN/CREATININE RATIO 6 (6-20); CALCIUM 8.2 mg/dL (8.5-10.1); CARBON DIOXIDE 29 mmol/L (21-32); CHLORIDE 101 mmol/L (98-107); CREATININE 0.8 mg/dL (0.7-1.3); GFR 100.4; GLUCOSE 178 mg/dL (70-99); SODIUM 139 mmol/L (136-145)
[2018-01-14] MEDS: ASPIRIN CHEWABLE 81 MG TABLET. PO (08:14)
[2018-01-14 08:15] LABS: INR 1.3 (0.8-1.1); PROTHROMBIN TIME PATIENT 15.3 SEC (11.7-14.0)
[2018-01-14] MEDS: IV NORMAL SALINE 1000ML BAG 1,000 ML IV (08:15)
[2018-01-14 08:17] LABS: ALBUMIN 2.9 g/dL (3.4-5.0); ALBUMIN/GLOBULIN RATIO 0.5 (1.0-1.7); ALK PHOS 103 U/L (46-116); ALT (SGPT) 35 U/L (16-63); AST (SGOT) 73 U/L (15-37); LIPASE 369 U/L (73-393); MAGNESIUM 1.9 mg/dL (1.8-2.4); TOTAL BILIRUBIN 0.6 mg/dL (0.2-1.0); TOTAL PROTEIN 9.2 g/dL (6.4-8.2)
[2018-01-14 08:20] LABS: D-DIMER 1.88 ug/mlFEU (0.00-0.50)
[2018-01-14 08:22] LABS: TROPONINI < 0.017 ng/mL (0.000-0.055)
[2018-01-14 08:29] LABS: CKMB INDEX 0.5 % (0-4); CKMB MASS 0.9 ng/mL (0.0-3.6); CREATINE KINASE 184 U/L (39-308)
[2018-01-14 08:29] LABS: NT-PRO BNP 8 pg/mL (0-124)
[2018-01-14 09:00] LABS: ETHANOL 372 mg/dL (0-10)
[2018-01-14] MEDS: IOHEXOL 300 MG/ML 100ML VIAL. IV (09:13)
[2018-01-14] MEDS ORDERED: CONTRAST GIVEN. MC (09:15)
[2018-01-14] MEDS: DEXAMETHASONE SOD PHOS 4 MG/ML VIAL IV (11:12)
[2018-01-14 11:39] LABS: TROPONINI < 0.017 ng/mL (0.000-0.055)
== END 2018-01-14 12:34 | disposition home or self-care (01) ==
LOC: ER 07:41
DX: R07.81 Pleurodynia (principal); M54.5 Low back pain; M25.512 Pain in left shoulder; J45.909 Unspecified asthma, uncomplicated; Z88.0 Allergy status to penicillin; Z88.1 Allergy status to other antibiotic agents
CPT/HCPCS: 36415; 71275; 74175; 80053; 82553; 83690; 83735; 83880; 84484; 85025; 85379; 85610; 93005; 96374; 99285-25; G0480; J1100; J7030; Q9967

== ENCOUNTER 2018-05-16 11:28 | Observation (INO) | payer SELFPAY ==
[~2018-05-16] VITALS: Ht 172.7 cm; Wt 91.8 kg
[~2018-05-16 11:28] MED LIST: CEPH-264 PO; CLIN300C8 PO; FLUC200T PO; FURO40TA4 PO; LACT20SO PO; NAPR220C4 PO; PRED20TA PO; SPIR25TA PO
--- NOTE | 2018-05-16 13:18 | RAD ---
KUB, 05/16/2018: HISTORY: Abdominal pain and bloating There is mild gaseous prominence of small bowel loops in the central abdomen. Colonic gas is also present. The central position of the bowel loops suggests ascites. No abnormal abdominal calcifications are seen. IMPRESSION: 1. Ascites. 2. Mild gaseous prominence of small bowel loops in the central abdomen suggests a mild ileus. Portable chest, 05/16/2018: The heart size and pulmonary vascularity are normal. No pulmonary infiltrate is seen. There is no evidence of pleural fluid. IMPRESSION: No acute cardiopulmonary abnormality is detected. Electronically signed by: Seb Stevens MD (05/16/2018 1:15 PM) [facility]
[2018-05-16 13:28] LABS: CALCIUM 8.4 mg/dL (8.5-10.1); GFR 77.6; POTASSIUM 3.6 mmol/L (3.5-5.1)
[2018-05-16 13:34] LABS: ALBUMIN/GLOBULIN RATIO 0.4 (1.0-1.7); TOTAL PROTEIN 7.2 g/dL (6.4-8.2)
[2018-05-16 13:38] LABS: BASO % 1 % (0-3); EOS % 2 % (0-3); HEMATOCRIT 29.3 % (39.0-53.0); HEMOGLOBIN 9.3 g/dL (13.0-17.5); LYMPH # 0.8 x10^3/uL (1.0-4.8); LYMPH % 27 % (24-48); MEAN CORPUSCULAR HEMOGLOBIN 26 pg (25-35); MEAN CORPUSCULAR HGB CONC 32 g/dL (31-37); MEAN CORPUSCULAR VOLUME 83 fL (79-100); MONO # 0.4 x10^3/uL (0.0-1.1); MONO % 14 % (0-9); NEUT # 1.7 x10^3uL (1.8-7.7); NEUT % 56 % (31-73); PLATELET COUNT 97 x10^3/uL (140-400); RED BLOOD COUNT 3.54 x10^6/uL (4.30-5.70); RED CELL DISTRIBUTION WIDTH 21.4 % (11.5-14.5); WHITE BLOOD COUNT 3.1 x10^3/uL (4.0-11.0)
[2018-05-16 13:41] LABS: PROTHROMBIN TIME PATIENT 21.5 SEC (11.7-14.0)
[2018-05-16 14:51] LABS: BILIRUBIN,URINE SMALL (NEG); CLARITY,URINE CLEAR; NITRITE,URINE NEGATIVE (NEG); PROTEIN,URINE NEGATIVE (NEG-TRACE)
[2018-05-16 15:01] LABS: COLOR,URINE DK YELLOW
[2018-05-16 15:04] LABS: BACTERIA,URINE 0 /HPF (0-FEW); HYALINE CASTS, URINE MANY /HPF; RBC,URINE 0 /HPF (0-2); SQUAMOUS EPITHELIAL CELL,UR OCC /LPF; WBC,URINE 0 /HPF (0-4)
[2018-05-16 15:17] LABS: ANISOCYTOSIS MOD; PLT ESTIMATE DECREASED (ADEQUATE); POLYCHROMASIA SLIGHT
[2018-05-16] MEDS ORDERED: LACTULOSE 20 GM/30 ML SOLUTION. PO PRN (15:30)
[2018-05-16] MEDS ORDERED: SODIUM PHOSPHATES 19/7GM 133 ML ENEMA. PR PRN (15:30)
[2018-05-16] MEDS ORDERED: MAGNESIUM HYDROXIDE 2,400 MG/30 ML ORAL.SUSP. PO PRN (15:30)
[2018-05-16] MEDS ORDERED: ONDANSETRON PF 4 MG/2 ML VIAL. IV PRN (15:30)
[2018-05-16] MEDS ORDERED: ACETAMINOPHEN 325 MG TABLET. PO PRN (15:30)
--- NOTE | 2018-05-16 15:37 | PHYS DOC ---
Past Medical History Past Medical History: Asthma, Other Additional Past Medical Histor: CELLULITIS,BORDERLINE HTN Past Surgical History: Other Additional Past Surgical Histo: L WRIST ORIF,L KNEE, ANKLE Alcohol Use: Occasionally Drug Use: None Adult General Chief Complaint Chief Complaint: DIARRHEA HPI HPI Patient is a 57-year-old male who presents with complaint of abdominal pain, worsening abdominal distention and constipation. Patient was recently admitted to this facility and had a paracentesis for ascites. Patient states that he had a total of 9 L of fluid drained. He states that after being discharged, he noticed that he had drainage from the paracentesis site and has continued to have drainage from the site since. He states that he had been given some medication while in the hospital and was able to move his bowels at that time but states that he has not had a bowel movement since being discharged home. He does state that he is passing gas however. Patient rates pain as being moderate. Patient also indicates that he has dyspnea on exertion. Review of Systems Review of Systems Constitutional: Denies fever or chills [] Respiratory: Denies cough or shortness of breath on exertion. [] Cardiovascular: No additional information not addressed in HPI [] GI: Complains of abdominal pain and distention. Denies vomiting or diarrhea. Reports constipation. [] : Denies dysuria or hematuria [] Musculoskeletal: Complains of back pain[] Integument: Denies rash or skin lesions [] All other systems were reviewed and found to be within normal limits, except as documented in this note. Current Medications Current Medications Current Medications Medications (Trade) Dose Ordered Sig/Marc Start Time Stop Time Status Last Admin Dose Admin Acetaminophen (Tylenol) 650 mg PRN Q4HRS PRN 05/16/18 15:30 05/17/18 15:29 UNV Fentanyl Citrate (Fentanyl 2ml Vial) 50 mcg PRN Q2HR PRN 05/16/18 15:30 05/17/18 15:29 UNV Ondansetron HCl (Zofran) 4 mg PRN Q8HRS PRN 05/16/18 15:30 05/17/18 15:29 UNV Allergies Allergies Allergies Coded Allergies Type Severity Reaction Last Updated Verified Penicillins Allergy Severe ANPHYLAXIS 04/24/17 Yes trovafloxacin Allergy Severe Anaphylaxis 04/25/17 Yes Physical Exam Physical Exam Constitutional: Well developed, well nourished, no acute distress, non-toxic appearance. [] HENT: Normocephalic, atraumatic, bilateral external ears normal, oropharynx moist, no oral exudates, nose normal. [] Eyes: PERRLA, EOMI, conjunctiva normal, no discharge. [] Neck: Normal range of motion, no tenderness, supple. [] Cardiovascular: Regular rate and rhythm [] Lungs & Thorax: Bilateral breath sounds clear to auscultation [] Abdomen: Bowel sounds normal, abdomen is distended, firm with mild diffuse tenderness. [] Skin: Warm, dry, no erythema, no rash. [] Extremities: No tenderness, no cyanosis, no clubbing, ROM intact, with lower extremity edema. [] Neurologic: Alert and oriented X 3, normal motor function, normal sensory function, no focal deficits noted. [] Current Patient Data Vital Signs Vital Signs Date Time Temp Pulse Resp B/P (MAP) Pulse Ox O2 Delivery O2 Flow Rate FiO2 05/16/18 12:40 97.7 18 16 122/82 (95) 98 Room Air 97.7 Lab Values Laboratory Tests Test 05/16/18 13:10 05/16/18 14:40 White Blood Count 3.1 x10^3/uL (4.0-11.0) L Red Blood Count 3.54 x10^6/uL (4.30-5.70) L Hemoglobin 9.3 g/dL (13.0-17.5) L Hematocrit 29.3 % (39.0-53.0) L Mean Corpuscular Volume 83 fL (79-100) Mean Corpuscular Hemoglobin 26 pg (25-35) Mean Corpuscular Hemoglobin Concent 32 g/dL (31-37) Red Cell Distribution Width 21.4 % (11.5-14.5) H Platelet Count 97 x10^3/uL (140-400) L Neutrophils (%) (Auto) 56 % (31-73) Lymphocytes (%) (Auto) 27 % (24-48) Monocytes (%) (Auto) 14 % (0-9) H Eosinophils (%) (Auto) 2 % (0-3) Basophils (%) (Auto) 1 % (0-3) Neutrophils # (Auto) 1.7 x10^3uL (1.8-7.7) L Lymphocytes # (Auto) 0.8 x10^3/uL (1.0-4.8) L Monocytes # (Auto) 0.4 x10^3/uL (0.0-1.1) Eosinophils # (Auto) 0.0 x10^3/uL (0.0-0.7) Basophils # (Auto) 0.0 x10^3/uL (0.0-0.2) Platelet Estimate Decreased (ADEQUATE) Polychromasia Slight Anisocytosis Mod Prothrombin Time 21.5 SEC (11.7-14.0) H Prothrombin Time INR 1.9 (0.8-1.1) H Sodium Level 133 mmol/L (136-145) L Potassium Level 3.6 mmol/L (3.5-5.1) Chloride Level 98 mmol/L (98-107) Carbon Dioxide Level 27 mmol/L (21-32) Anion Gap 8 (6-14) Blood Urea Nitrogen 11 mg/dL (8-26) Creatinine 1.0 mg/dL (0.7-1.3) Estimated GFR (Cockcroft-Gault) 77.6 BUN/Creatinine Ratio 11 (6-20) Glucose Level 114 mg/dL (70-99) H Calcium Level 8.4 mg/dL (8.5-10.1) L Total Bilirubin 3.0 mg/dL (0.2-1.0) H Aspartate Amino Transferase (AST) 74 U/L (15-37) H Alanine Aminotransferase (ALT) 25 U/L (16-63) Alkaline Phosphatase 93 U/L (46-116) Total Protein 7.2 g/dL (6.4-8.2) Albumin 2.0 g/dL (3.4-5.0) L Albumin/Globulin Ratio 0.4 (1.0-1.7) L Lipase 324 U/L (73-393) Urine Collection Type Unknown Urine Color Dk yellow Urine Clarity Clear Urine pH 5.0 Urine Specific [place] 1.020 Urine Protein Negative mg/dL (NEG-TRACE) Urine Glucose (UA) Negative mg/dL (NEG) Urine Ketones (Stick) Trace mg/dL (NEG) Urine Blood Negative (NEG) Urine Nitrite Negative (NEG) Urine Bilirubin Small (NEG) Urine Urobilinogen Dipstick 1.0 mg/dL (0.2 mg/dL) Urine Leukocyte Esterase Negative (NEG) Urine RBC 0 /HPF (0-2) Urine WBC 0 /HPF (0-4) Urine Squamous Epithelial Cells Occ /LPF Urine Bacteria 0 /HPF (0-FEW) Urine Hyaline Casts Many /HPF Urine Mucus Marked /LPF Laboratory Tests 05/16/18 13:10 Laboratory Tests 05/16/18 13:10 EKG EKG [] Radiology/Procedures Radiology/Procedures [] Impressions: KUB, 05/16/2018: HISTORY: Abdominal pain and bloating There is mild gaseous prominence of small bowel loops in the central abdomen. Colonic gas is also present. The central position of the bowel loops suggests ascites. No abnormal abdominal calcifications are seen. IMPRESSION: 1. Ascites. 2. Mild gaseous prominence of small bowel loops in the central abdomen suggests a mild ileus. Portable chest, 05/16/2018: The heart size and pulmonary vascularity are normal. No pulmonary infiltrate is seen. There is no evidence of pleural fluid. IMPRESSION: No acute cardiopulmonary abnormality is detected. Electronically signed by: Seb Stevens MD (05/16/2018 1:15 PM) [facility] Course & Med Decision Making Course & Med Decision Making Pertinent Labs and Imaging studies reviewed. (See chart for details) [] Dragon Disclaimer Dragon Disclaimer This electronic medical record was generated, in whole or in part, using a voice recognition dictation system. Departure Departure Impression: Primary Impression: Ascites Additional Impression: Abdominal pain Disposition: 09 ADMITTED INPATIENT Admitting Physician: Yani Uribe Condition: GOOD Referrals: NO PCP (PCP) Problem Qualifiers Primary Impression: Ascites Ascites type: other type Qualified Codes: R18.8 - Other ascites Additional Impression: Abdominal pain Abdominal location: generalized Qualified Codes: R10.84 - Generalized abdominal pain HERB ESPINO Jr. DO May 16, 2018 15:37
--- NOTE | 2018-05-16 15:51 | PDOC1 ---
History and Physical Date of Admission Date of Admission DATE: 05/16/18 TIME: 15:44 Identification/Chief Complaint Chief Complaint Ascites Source Source: Caregiver, Chart review, Patient History of Present Illness History of Present Illness 57-year-old male who was just here 2 days ago, appropriately discharged to home after getting 9 L off. It was his first time of paracentesis. He was diagnosed with alcoholic liver cirrhosis by GI. Started on Aldactone 100 mg by mouth daily Lasix 40 once a day with significant improvement in bilateral lower extremity swelling, as witnessed by significant other who was pleased with his course. He has also stopped drinking. Unfortunately he is self-pay and has not gotten a chance to get a PCP at can order outpatient paracentesis. Labs are unremarkable, patient admitted for observation stay with paracentesis planned for tomorrow, I did give him [facility] and [facility] resources and education Seen at ER He has still his dressings from his paracentesis 2 days ago and it is soaked with yellowish fluid He also complains of constipation, no BM since discharge 2-3 days ago. He has lactulose and claims no relief from it Labs remarkable for neutropenia, WBC 3.1,thrombocytopenia, platelets 97, hemoglobin 10 Past Medical History Hepatobiliary: Cirrhosis Musculoskeletal: low back pain Past Surgical History Past Surgical History: Other (paracentesis, May 11 or 2017), No pertinent history Family History Family History: Family History Unknown Social History Smoke: No ALCOHOL: other (quit - drank heavy prior, started in hisyounger yrs) Drugs: None Current Problem List Problem List Problems Medical Problems: (1) Abdominal pain Status: Acute (2) Ascites Status: Acute Current Medications Current Medications Current Medications Ondansetron HCl (Zofran) 4 mg PRN Q8HRS PRN IV NAUSEA/VOMITING; Start at 15:30; Stop 05/17/18 at 15:29 Fentanyl Citrate (Fentanyl 2ml Vial) 50 mcg PRN Q2HR PRN IV PAIN; Start at 15:30; Stop 05/17/18 at 15:29 Acetaminophen (Tylenol) 650 mg PRN Q4HRS PRN PO FEVER; Start 05/16/18 at 15:30 ; Stop 05/17/18 at 15:29 Active Scripts Active Furosemide 40 Mg Tablet 40 Mg PO DAILY 30 Days Lactulose 20 Gm/30 Ml Solution 20 Gm PO TID PRN 30 Days Aldactone (Spironolactone) 25 Mg Tablet 100 Mg PO DAILY 30 Days Reported Aleve (Naproxen Sodium) 220 Mg Capsule 220 Mg PO BID Allergies Allergies: Coded Allergies: Penicillins (Verified Allergy, Severe, ANPHYLAXIS, 04/24/17) trovafloxacin (Verified Allergy, Severe, Anaphylaxis, 04/25/17) Anaphylactic ROS Review of System As per history of present illness, the rest of ROS 14 point negative Physical Exam General: Alert, Oriented X3, Cooperative, No acute distress HEENT: Atraumatic, PERRLA Lungs: Normal air movement, Other (decrease air movement, decrease bases, sec to inc POA diameter, no crackles or rhonchi or wheezing appreciable) Cardiovascular: S1, S2 Breasts: Normal Male Genitals Exam: normal genitalia Rectal Exam: not examined PELVIC: Nml ext genitalia Extremities: No clubbing, No cyanosis, Other (+1 to +2 mild pitting edema, better as per ) Skin: No breakdown, Other (some petecchaie appreciable in the trunk area) Neuro: Normal gait, Normal speech Vitals Vitals Vital Signs Date Time Temp Pulse Resp B/P (MAP) Pulse Ox O2 Delivery O2 Flow Rate FiO2 05/16/18 12:40 97.7 18 16 122/82 (95) 98 Room Air 97.7 Labs Labs Laboratory Tests Test 05/16/18 13:10 05/16/18 14:40 White Blood Count 3.1 x10^3/uL (4.0-11.0) Red Blood Count 3.54 x10^6/uL (4.30-5.70) Hemoglobin 9.3 g/dL (13.0-17.5) Hematocrit 29.3 % (39.0-53.0) Mean Corpuscular Volume 83 fL (79-100) Mean Corpuscular Hemoglobin 26 pg (25-35) Mean Corpuscular Hemoglobin Concent 32 g/dL (31-37) Red Cell Distribution Width 21.4 % (11.5-14.5) Platelet Count 97 x10^3/uL (140-400) Neutrophils (%) (Auto) 56 % (31-73) Lymphocytes (%) (Auto) 27 % (24-48) Monocytes (%) (Auto) 14 % (0-9) Eosinophils (%) (Auto) 2 % (0-3) Basophils (%) (Auto) 1 % (0-3) Neutrophils # (Auto) 1.7 x10^3uL (1.8-7.7) Lymphocytes # (Auto) 0.8 x10^3/uL (1.0-4.8) Monocytes # (Auto) 0.4 x10^3/uL (0.0-1.1) Eosinophils # (Auto) 0.0 x10^3/uL (0.0-0.7) Basophils # (Auto) 0.0 x10^3/uL (0.0-0.2) Platelet Estimate Decreased (ADEQUATE) Polychromasia Slight Anisocytosis Mod Prothrombin Time 21.5 SEC (11.7-14.0) Prothromb Time International Ratio 1.9 (0.8-1.1) Sodium Level 133 mmol/L (136-145) Potassium Level 3.6 mmol/L (3.5-5.1) Chloride Level 98 mmol/L (98-107) Carbon Dioxide Level 27 mmol/L (21-32) Anion Gap 8 (6-14) Blood Urea Nitrogen 11 mg/dL (8-26) Creatinine 1.0 mg/dL (0.7-1.3) Estimated GFR (Cockcroft-Gault) 77.6 BUN/Creatinine Ratio 11 (6-20) Glucose Level 114 mg/dL (70-99) Calcium Level 8.4 mg/dL (8.5-10.1) Total Bilirubin 3.0 mg/dL (0.2-1.0) Aspartate Amino Transf (AST/SGOT) 74 U/L (15-37) Alanine Aminotransferase (ALT/SGPT) 25 U/L (16-63) Alkaline Phosphatase 93 U/L (46-116) Total Protein 7.2 g/dL (6.4-8.2) Albumin 2.0 g/dL (3.4-5.0) Albumin/Globulin Ratio 0.4 (1.0-1.7) Lipase 324 U/L (73-393) Urine Collection Type Unknown Urine Color Dk yellow Urine Clarity Clear Urine pH 5.0 Urine Specific [place] 1.020 Urine Protein Negative mg/dL (NEG-TRACE) Urine Glucose (UA) Negative mg/dL (NEG) Urine Ketones (Stick) Trace mg/dL (NEG) Urine Blood Negative (NEG) Urine Nitrite Negative (NEG) Urine Bilirubin Small (NEG) Urine Urobilinogen Dipstick 1.0 mg/dL (0.2 mg/dL) Urine Leukocyte Esterase Negative (NEG) Urine RBC 0 /HPF (0-2) Urine WBC 0 /HPF (0-4) Urine Squamous Epithelial Cells Occ /LPF Urine Bacteria 0 /HPF (0-FEW) Urine Hyaline Casts Many /HPF Urine Mucus Marked /LPF Laboratory Tests Test 05/16/18 13:10 05/16/18 14:40 White Blood Count 3.1 x10^3/uL (4.0-11.0) Red Blood Count 3.54 x10^6/uL (4.30-5.70) Hemoglobin 9.3 g/dL (13.0-17.5) Hematocrit 29.3 % (39.0-53.0) Mean Corpuscular Volume 83 fL (79-100) Mean Corpuscular Hemoglobin 26 pg (25-35) Mean Corpuscular Hemoglobin Concent 32 g/dL (31-37) Red Cell Distribution Width 21.4 % (11.5-14.5) Platelet Count 97 x10^3/uL (140-400) Neutrophils (%) (Auto) 56 % (31-73) Lymphocytes (%) (Auto) 27 % (24-48) Monocytes (%) (Auto) 14 % (0-9) Eosinophils (%) (Auto) 2 % (0-3) Basophils (%) (Auto) 1 % (0-3) Neutrophils # (Auto) 1.7 x10^3uL (1.8-7.7) Lymphocytes # (Auto) 0.8 x10^3/uL (1.0-4.8) Monocytes # (Auto) 0.4 x10^3/uL (0.0-1.1) Eosinophils # (Auto) 0.0 x10^3/uL (0.0-0.7) Basophils # (Auto) 0.0 x10^3/uL (0.0-0.2) Platelet Estimate Decreased (ADEQUATE) Polychromasia Slight Anisocytosis Mod Prothrombin Time 21.5 SEC (11.7-14.0) Prothromb Time International Ratio 1.9 (0.8-1.1) Sodium Level 133 mmol/L (136-145) Potassium Level 3.6 mmol/L (3.5-5.1) Chloride Level 98 mmol/L (98-107) Carbon Dioxide Level 27 mmol/L (21-32) Anion Gap 8 (6-14) Blood Urea Nitrogen 11 mg/dL (8-26) Creatinine 1.0 mg/dL (0.7-1.3) Estimated GFR (Cockcroft-Gault) 77.6 BUN/Creatinine Ratio 11 (6-20) Glucose Level 114 mg/dL (70-99) Calcium Level 8.4 mg/dL (8.5-10.1) Total Bilirubin 3.0 mg/dL (0.2-1.0) Aspartate Amino Transf (AST/SGOT) 74 U/L (15-37) Alanine Aminotransferase (ALT/SGPT) 25 U/L (16-63) Alkaline Phosphatase 93 U/L (46-116) Total Protein 7.2 g/dL (6.4-8.2) Albumin 2.0 g/dL (3.4-5.0) Albumin/Globulin Ratio 0.4 (1.0-1.7) Lipase 324 U/L (73-393) Urine Collection Type Unknown Urine Color Dk yellow Urine Clarity Clear Urine pH 5.0 Urine Specific [place] 1.020 Urine Protein Negative mg/dL (NEG-TRACE) Urine Glucose (UA) Negative mg/dL (NEG) Urine Ketones (Stick) Trace mg/dL (NEG) Urine Blood Negative (NEG) Urine Nitrite Negative (NEG) Urine Bilirubin Small (NEG) Urine Urobilinogen Dipstick 1.0 mg/dL (0.2 mg/dL) Urine Leukocyte Esterase Negative (NEG) Urine RBC 0 /HPF (0-2) Urine WBC 0 /HPF (0-4) Urine Squamous Epithelial Cells Occ /LPF Urine Bacteria 0 /HPF (0-FEW) Urine Hyaline Casts Many /HPF Urine Mucus Marked /LPF VTE Prophylaxis Ordered VTE Prophylaxis Devices: Yes VTE Pharmacological Prophylaxi: Yes Assessment/Plan Assessment/Plan Ascites Alcoholic liver cirrhosis-recently quit etoh petechiae in the background of thrombocytopenia Neutropenia, WBC 3.1 with no signs of infection Anemia of liver cirrhosis Overweight, BMI 31 COnstipation PLAN: Admit OBS ER Nothing by mouth post midnight for paracentesis by IR tomorrow Resume home Aldactone 100 mg by mouth daily Lasix 40 once a day BMP tomorrow Fleet enema, lactulose for the constipation Monitor for further neutropenia and thrombocytopenia Heavy education counseling discussed about etoh liver cirrhosis, repercussions of thrombocytopenia, neutropenia,alcohol cessation 1 : 1 given Resources for free clinic given Discussed with significant other at ER Consider AFP if not yet done last admit given recurrent ascites in short span of time ALEIDA VAUGHAN MD May 16, 2018 15:51
[2018-05-16 17:05] VITALS: BP 130/92
[2018-05-16 19:00] VITALS: BP 98/66
[2018-05-16 22:34] VITALS: BP 115/83
[2018-05-17] VITALS (10 sets, daily range): BP systolic 87–120; BP diastolic 52–83
[2018-05-17] MEDS: fentaNYL PF VIAL 100 MCG/2 ML VIAL IV PRN ×3 (02:32→12:44)
[2018-05-17 04:34] LABS: BASO % 1 % (0-3); EOS # 0.1 x10^3/uL (0.0-0.7); EOS % 2 % (0-3); HEMATOCRIT 26.9 % (39.0-53.0); HEMOGLOBIN 8.6 g/dL (13.0-17.5); LYMPH % 29 % (24-48); MEAN CORPUSCULAR HEMOGLOBIN 27 pg (25-35); MEAN CORPUSCULAR HGB CONC 32 g/dL (31-37); MEAN CORPUSCULAR VOLUME 83 fL (79-100); MONO # 0.6 x10^3/uL (0.0-1.1); MONO % 16 % (0-9); NEUT # 1.8 x10^3uL (1.8-7.7); NEUT % 52 % (31-73); PLATELET COUNT 87 x10^3/uL (140-400); RED BLOOD COUNT 3.26 x10^6/uL (4.30-5.70); WHITE BLOOD COUNT 3.5 x10^3/uL (4.0-11.0)
[2018-05-17 04:55] LABS: CALCIUM 8.1 mg/dL (8.5-10.1); CREATININE 0.9 mg/dL (0.7-1.3); GFR 87.6; POTASSIUM 3.5 mmol/L (3.5-5.1)
[2018-05-17] MEDS: FUROSEMIDE 40 MG TABLET. PO SCH (09:00)
[2018-05-17] MEDS: SPIRONOLACTONE 25 MG TABLET PO SCH (09:00)
--- NOTE | 2018-05-17 11:16 | PDOC3 ---
Discharge Summary Visit Information Date of Admission: May 16, 2018 Date of Discharge: May 17, 2018 Admitting Diagnosis Comment: Ascites Alcoholic liver cirrhosis-recently quit etoh petechiae in the background of thrombocytopenia Neutropenia, WBC 3.1 with no signs of infection Anemia of liver cirrhosis Overweight, BMI 31 COnstipation Final Diagnosis Problems Medical Problems: (1) Abdominal pain Status: Acute (2) Ascites Status: Acute Brief Hospital Course Allergies Allergies Coded Allergies Type Severity Reaction Last Updated Verified Penicillins Allergy Severe ANPHYLAXIS 04/24/17 Yes trovafloxacin Allergy Severe Anaphylaxis 04/25/17 Yes Influenza Virus Vaccines Allergy Unknown 05/17/18 Yes Vital Signs Vital Signs Date Time Temp Pulse Resp B/P (MAP) Pulse Ox O2 Delivery O2 Flow Rate FiO2 05/17/18 09:19 121 113/83 (93) 05/17/18 08:30 Room Air 05/17/18 07:00 98.5 16 93 98.5 Lab Results Laboratory Tests Test 05/16/18 13:10 05/16/18 14:40 05/17/18 04:15 White Blood Count 3.1 x10^3/uL (4.0-11.0) 3.5 x10^3/uL (4.0-11.0) Red Blood Count 3.54 x10^6/uL (4.30-5.70) 3.26 x10^6/uL (4.30-5.70) Hemoglobin 9.3 g/dL (13.0-17.5) 8.6 g/dL (13.0-17.5) Hematocrit 29.3 % (39.0-53.0) 26.9 % (39.0-53.0) Mean Corpuscular Volume 83 fL (79-100) 83 fL (79-100) Mean Corpuscular Hemoglobin 26 pg (25-35) 27 pg (25-35) Mean Corpuscular Hemoglobin Concent 32 g/dL (31-37) 32 g/dL (31-37) Red Cell Distribution Width 21.4 % (11.5-14.5) 21.0 % (11.5-14.5) Platelet Count 97 x10^3/uL (140-400) 87 x10^3/uL (140-400) Neutrophils (%) (Auto) 56 % (31-73) 52 % (31-73) Lymphocytes (%) (Auto) 27 % (24-48) 29 % (24-48) Monocytes (%) (Auto) 14 % (0-9) 16 % (0-9) Eosinophils (%) (Auto) 2 % (0-3) 2 % (0-3) Basophils (%) (Auto) 1 % (0-3) 1 % (0-3) Neutrophils # (Auto) 1.7 x10^3uL (1.8-7.7) 1.8 x10^3uL (1.8-7.7) Lymphocytes # (Auto) 0.8 x10^3/uL (1.0-4.8) 1.0 x10^3/uL (1.0-4.8) Monocytes # (Auto) 0.4 x10^3/uL (0.0-1.1) 0.6 x10^3/uL (0.0-1.1) Eosinophils # (Auto) 0.0 x10^3/uL (0.0-0.7) 0.1 x10^3/uL (0.0-0.7) Basophils # (Auto) 0.0 x10^3/uL (0.0-0.2) 0.0 x10^3/uL (0.0-0.2) Platelet Estimate Decreased (ADEQUATE) Polychromasia Slight Anisocytosis Mod Prothrombin Time 21.5 SEC (11.7-14.0) Prothromb Time International Ratio 1.9 (0.8-1.1) Sodium Level 133 mmol/L (136-145) 134 mmol/L (136-145) Potassium Level 3.6 mmol/L (3.5-5.1) 3.5 mmol/L (3.5-5.1) Chloride Level 98 mmol/L (98-107) 100 mmol/L (98-107) Carbon Dioxide Level 27 mmol/L (21-32) 27 mmol/L (21-32) Anion Gap 8 (6-14) 7 (6-14) Blood Urea Nitrogen 11 mg/dL (8-26) 12 mg/dL (8-26) Creatinine 1.0 mg/dL (0.7-1.3) 0.9 mg/dL (0.7-1.3) Estimated GFR (Cockcroft-Gault) 77.6 87.6 BUN/Creatinine Ratio 11 (6-20) Glucose Level 114 mg/dL (70-99) 96 mg/dL (70-99) Calcium Level 8.4 mg/dL (8.5-10.1) 8.1 mg/dL (8.5-10.1) Total Bilirubin 3.0 mg/dL (0.2-1.0) Aspartate Amino Transf (AST/SGOT) 74 U/L (15-37) Alanine Aminotransferase (ALT/SGPT) 25 U/L (16-63) Alkaline Phosphatase 93 U/L (46-116) Total Protein 7.2 g/dL (6.4-8.2) Albumin 2.0 g/dL (3.4-5.0) Albumin/Globulin Ratio 0.4 (1.0-1.7) Lipase 324 U/L (73-393) Urine Collection Type Unknown Urine Color Dk yellow Urine Clarity Clear Urine pH 5.0 Urine Specific [place] 1.020 Urine Protein Negative mg/dL (NEG-TRACE) Urine Glucose (UA) Negative mg/dL (NEG) Urine Ketones (Stick) Trace mg/dL (NEG) Urine Blood Negative (NEG) Urine Nitrite Negative (NEG) Urine Bilirubin Small (NEG) Urine Urobilinogen Dipstick 1.0 mg/dL (0.2 mg/dL) Urine Leukocyte Esterase Negative (NEG) Urine RBC 0 /HPF (0-2) Urine WBC 0 /HPF (0-4) Urine Squamous Epithelial Cells Occ /LPF Urine Bacteria 0 /HPF (0-FEW) Urine Hyaline Casts Many /HPF Urine Mucus Marked /LPF Laboratory Tests Test 05/16/18 13:10 05/16/18 14:40 05/17/18 04:15 White Blood Count 3.1 x10^3/uL (4.0-11.0) 3.5 x10^3/uL (4.0-11.0) Red Blood Count 3.54 x10^6/uL (4.30-5.70) 3.26 x10^6/uL (4.30-5.70) Hemoglobin 9.3 g/dL (13.0-17.5) 8.6 g/dL (13.0-17.5) Hematocrit 29.3 % (39.0-53.0) 26.9 % (39.0-53.0) Mean Corpuscular Volume 83 fL (79-100) 83 fL (79-100) Mean Corpuscular Hemoglobin 26 pg (25-35) 27 pg (25-35) Mean Corpuscular Hemoglobin Concent 32 g/dL (31-37) 32 g/dL (31-37) Red Cell Distribution Width 21.4 % (11.5-14.5) 21.0 % (11.5-14.5) Platelet Count 97 x10^3/uL (140-400) 87 x10^3/uL (140-400) Neutrophils (%) (Auto) 56 % (31-73) 52 % (31-73) Lymphocytes (%) (Auto) 27 % (24-48) 29 % (24-48) Monocytes (%) (Auto) 14 % (0-9) 16 % (0-9) Eosinophils (%) (Auto) 2 % (0-3) 2 % (0-3) Basophils (%) (Auto) 1 % (0-3) 1 % (0-3) Neutrophils # (Auto) 1.7 x10^3uL (1.8-7.7) 1.8 x10^3uL (1.8-7.7) Lymphocytes # (Auto) 0.8 x10^3/uL (1.0-4.8) 1.0 x10^3/uL (1.0-4.8) Monocytes # (Auto) 0.4 x10^3/uL (0.0-1.1) 0.6 x10^3/uL (0.0-1.1) Eosinophils # (Auto) 0.0 x10^3/uL (0.0-0.7) 0.1 x10^3/uL (0.0-0.7) Basophils # (Auto) 0.0 x10^3/uL (0.0-0.2) 0.0 x10^3/uL (0.0-0.2) Platelet Estimate Decreased (ADEQUATE) Polychromasia Slight Anisocytosis Mod Prothrombin Time 21.5 SEC (11.7-14.0) Prothromb Time International Ratio 1.9 (0.8-1.1) Sodium Level 133 mmol/L (136-145) 134 mmol/L (136-145) Potassium Level 3.6 mmol/L (3.5-5.1) 3.5 mmol/L (3.5-5.1) Chloride Level 98 mmol/L (98-107) 100 mmol/L (98-107) Carbon Dioxide Level 27 mmol/L (21-32) 27 mmol/L (21-32) Anion Gap 8 (6-14) 7 (6-14) Blood Urea Nitrogen 11 mg/dL (8-26) 12 mg/dL (8-26) Creatinine 1.0 mg/dL (0.7-1.3) 0.9 mg/dL (0.7-1.3) Estimated GFR (Cockcroft-Gault) 77.6 87.6 BUN/Creatinine Ratio 11 (6-20) Glucose Level 114 mg/dL (70-99) 96 mg/dL (70-99) Calcium Level 8.4 mg/dL (8.5-10.1) 8.1 mg/dL (8.5-10.1) Total Bilirubin 3.0 mg/dL (0.2-1.0) Aspartate Amino Transf (AST/SGOT) 74 U/L (15-37) Alanine Aminotransferase (ALT/SGPT) 25 U/L (16-63) Alkaline Phosphatase 93 U/L (46-116) Total Protein 7.2 g/dL (6.4-8.2) Albumin 2.0 g/dL (3.4-5.0) Albumin/Globulin Ratio 0.4 (1.0-1.7) Lipase 324 U/L (73-393) Urine Collection Type Unknown Urine Color Dk yellow Urine Clarity Clear Urine pH 5.0 Urine Specific [place] 1.020 Urine Protein Negative mg/dL (NEG-TRACE) Urine Glucose (UA) Negative mg/dL (NEG) Urine Ketones (Stick) Trace mg/dL (NEG) Urine Blood Negative (NEG) Urine Nitrite Negative (NEG) Urine Bilirubin Small (NEG) Urine Urobilinogen Dipstick 1.0 mg/dL (0.2 mg/dL) Urine Leukocyte Esterase Negative (NEG) Urine RBC 0 /HPF (0-2) Urine WBC 0 /HPF (0-4) Urine Squamous Epithelial Cells Occ /LPF Urine Bacteria 0 /HPF (0-FEW) Urine Hyaline Casts Many /HPF Urine Mucus Marked /LPF Brief Hospital Course Pt is a 57-year-old male who was just here 2 days ago after having 9 L paracentesis by IR. He is diagnosed with alcoholic liver cirrhosis and has been sober for a few months now. He has some petechiae with a platelets of 97 but no obvious bleeding. He has neutropenia 3.1 WBC but no signs of infection. Please refer to my full H&P done yesterday COURSE: He will undergo paracentesis today. After paracentesis we'll give a bowel regimen to make him move as he is so constipated. If he does both then he is stable to go home with no PT needs. He is self-pay. I did give him [facility] and [facility] free clinic to establish PCP so that he can just go outpatient IR for intermittent paracentesis consults: none Discharge Information Condition at Discharge: Improved, Stable Disposition/Orders: D/C to Home Scheduled Furosemide (Furosemide) 40 Mg Tablet, 40 MG PO DAILY for ascites for 30 Days, # 30 Prescribed by: CHARLES EMERSON MD on 05/13/18 1303 Last Taken: Unknown Dose on 05/16/18 09 Last Action: Last Taken Edited on 05/16/181827 by ALLIE HIRSCH Naproxen Sodium (Aleve) 220 Mg Capsule, 220 MG PO BID for p, (Reported) Entered as Reported by: PREMA HERNANDEZ on 05/09/18 1604 Last Taken: Unknown Dose on Unknown Date & Time Last Action: Last Taken Edited on 05/16/181827 by ALLIE HIRSCH Spironolactone (Aldactone) 25 Mg Tablet, 100 MG PO DAILY for ascites for 30 Days , #120 Prescribed by: CHARLES EMERSON MD on 05/13/18 1303 Last Taken: Unknown Dose on 05/16/18 0900 Last Action: Last Taken Edited on 05/16/181827 by ALLIE HIRSCH Scheduled PRN Lactulose (Lactulose) 20 Gm/30 Ml Solution, 20 GM PO TID PRN for CONSTIPATION for 30 Days, #180 Prescribed by: CHARLES EMERSON MD on 05/13/18 1303 Last Taken: Unknown Dose on 05/15/18 Last Action: Last Taken Edited on 05/16/181827 by ALEIDA CASTELLANOS MD May 17, 2018 11:16
[2018-05-17] MEDS ORDERED: ALBUMIN HUMAN 25% 100 ML IV ONE ×2 (14:28→14:45)
[2018-05-17] MEDS ORDERED: BISACODYL 10 MG SUPP.RECT. PR PRN (15:45)
[2018-05-17] MEDS ORDERED: POLYETHYLENE GLYCOL 3350 17 GM PACKET. PO PRN (15:45)
[2018-05-17] MEDS ORDERED: MAGNESIUM CITRATE 296 ML SOLUTION. PO ONE (15:45)
[2018-05-17] MEDS ORDERED: fentaNYL PF VIAL 100 MCG/2 ML VIAL IV PRN (23:45)
[2018-05-18 03:00] VITALS: BP 85/55
[2018-05-18 07:00] VITALS: BP 106/63
[2018-05-18] MEDS: SPIRONOLACTONE 25 MG TABLET PO SCH (09:09)
[2018-05-18] MEDS: FUROSEMIDE 40 MG TABLET. PO SCH (09:09)
--- NOTE | 2018-05-18 10:27 | RAD ---
Ultrasound-guided paracentesis 05/18/2018 10:23 AM Procedure: The risks and benefits of the procedure were discussed the patient. Informed consent was obtained. A timeout procedure was performed. Sonographic evaluation of the abdomen was performed demonstrating ascites . The left lower quadrant was prepped and draped using maximum sterile barrier technique. 1% lidocaine without epinephrine was administered for local anesthesia. Real-time ultrasonographic guidance was used in passing a 5 [place] Yueh catheter into the fluid collection. 7.4 L of serous ascites was removed. The catheter was removed and pressure held to achieve hemostasis. A sterile dressing was applied. Impression: Successful ultrasound-guided paracentesis
[2018-05-18 11:00] VITALS: BP 115/81
--- NOTE | 2018-05-18 11:11 | PDOC ---
Provider Note Provider Note Pt did not DC yesterday as it was after dayshift when he had a BM IR took out > 7 L abdominal fluid I did recommend [facility] or [facility] free clinic so that he does not have to be admitted just for paracentesis No prescription needed, continue home Aldactone 100 once a day and Lasix 40 once a day Patient seen and examined, discussed with RN ALEIDA Chandler MD May 18, 2018 11:11
== END 2018-05-18 12:30 | disposition home or self-care (01) ==
LOC: ER 11:28 → INTOOBSV 15:30 → 5 SOUTH 15:30
PROVIDERS: ADMIT Internal Medicine; ATTEND Internal Medicine
DX: K70.31 Alcoholic cirrhosis of liver with ascites (principal); D69.6 Thrombocytopenia, unspecified; D70.9 Neutropenia, unspecified; D64.89 Other specified anemias; E66.3 Overweight; K59.00 Constipation, unspecified; J45.909 Unspecified asthma, uncomplicated; Z68.31 Body mass index [BMI] 31.0-31.9, adult
CPT/HCPCS: 36415; 49083; 71045; 74018; 80048; 80053; 81001; 83690; 85025; 85610; 96365; 96375; 96376; 99285; G0378; J3010; P9046; 96360; G0379

== ENCOUNTER 2018-07-10 04:33 | Inpatient (IN) | payer OTHER ==
[~2018-07-10] VITALS: Ht 170.2 cm; Wt 88.1 kg
[~2018-07-10 04:33] MED LIST changes: +CAPS60CR2 TP; +HYDR-2761 PO; +LIDO700A21 TD; +RIFA550T4 PO
--- NOTE | 2018-07-10 05:23 | PHYS DOC ---
Past Medical History Past Medical History: Asthma, Liver Disease, Other Additional Past Medical Histor: CELLULITIS,BORDERLINE HTN, ASCITES Past Surgical History: Other Additional Past Surgical Histo: L WRIST ORIF,L KNEE, ABD TAPPED Alcohol Use: Occasionally Drug Use: None Adult General Chief Complaint Chief Complaint: ABDOMINAL PAIN HPI HPI is a 57-year-old male who presents with complaint of abdominal pain and distention with development of a site 80s. Patient rates his pain to be a 9 out of 10. He admits to nausea but no vomiting. He states that his last normal bowel movement was yesterday and states that those have actually been fairly good. He denies any fever. He denies any chest or back pain. Patient states that there are no alleviating factors. Review of Systems Review of Systems Constitutional: Denies fever or chills [] Respiratory: Denies cough or shortness of breath [] Cardiovascular: No additional information not addressed in HPI [] GI: Positive abdominal pain with nausea. No vomiting or diarrhea [] Musculoskeletal: Denies back pain or joint pain [] Integument: Denies rash or skin lesions [] All other systems were reviewed and found to be within normal limits, except as documented in this note. Current Medications Current Medications Current Medications Medications (Trade) Dose Ordered Sig/Marc Start Time Stop Time Status Last Admin Dose Admin Aztreonam (Azactam) 1 gm 1X STAT 07/10/18 07:47 07/10/18 07:51 DC Fentanyl Citrate (Fentanyl 2ml Vial) 50 mcg PRN Q15MIN PRN 07/10/18 05:30 07/11/18 05:29 07/10/18 08:05 50 MCG Ondansetron HCl (Zofran) 4 mg 1X ONCE 07/10/18 05:45 07/10/18 05:46 DC 07/10/18 05:42 4 MG Allergies Allergies Allergies Coded Allergies Type Severity Reaction Last Updated Verified Penicillins Allergy Severe ANPHYLAXIS 05/30/18 Yes trovafloxacin Allergy Severe Anaphylaxis 05/30/18 Yes Influenza Virus Vaccines Allergy Intermediate 06/16/18 Yes Physical Exam Physical Exam Constitutional: Well developed, well nourished, appears uncomfortable, non- toxic appearance. [] HENT: Normocephalic, atraumatic, bilateral external ears normal, oropharynx dry , no oral exudates, nose normal. [] Eyes: PERRLA, EOMI, conjunctiva normal, no discharge. [] Neck: Normal range of motion, no tenderness, supple, no stridor. [] Cardiovascular: Mildly tachycardic rate with regular rhythm Lungs & Thorax: Bilateral breath sounds clear to auscultation Abdomen: Bowel sounds normal, slightly firm, distended with diffuse tenderness. Skin: Warm, dry, no erythema, no rash. Extremities: No tenderness, no cyanosis, no clubbing, ROM intact. Neurologic: Alert and oriented X 3, no focal deficits noted. Current Patient Data Vital Signs Vital Signs Date Time Temp Pulse Resp B/P (MAP) Pulse Ox O2 Delivery O2 Flow Rate FiO2 07/10/18 08:05 14 97 07/10/18 07:12 Room Air 07/10/18 05:40 108 106/69 (81) 07/10/18 04:45 97.5 97.5 Lab Values Laboratory Tests Test 07/10/18 05:20 White Blood Count 5.3 x10^3/uL (4.0-11.0) Red Blood Count 3.08 x10^6/uL (4.30-5.70) L Hemoglobin 9.6 g/dL (13.0-17.5) L Hematocrit 27.7 % (39.0-53.0) L Mean Corpuscular Volume 90 fL (79-100) Mean Corpuscular Hemoglobin 31 pg (25-35) Mean Corpuscular Hemoglobin Concent 35 g/dL (31-37) Red Cell Distribution Width 20.9 % (11.5-14.5) H Platelet Count 101 x10^3/uL (140-400) L Neutrophils (%) (Auto) 58 % (31-73) Lymphocytes (%) (Auto) 31 % (24-48) Monocytes (%) (Auto) 9 % (0-9) Eosinophils (%) (Auto) 2 % (0-3) Basophils (%) (Auto) 1 % (0-3) Neutrophils # (Auto) 3.1 x10^3uL (1.8-7.7) Lymphocytes # (Auto) 1.6 x10^3/uL (1.0-4.8) Monocytes # (Auto) 0.5 x10^3/uL (0.0-1.1) Eosinophils # (Auto) 0.1 x10^3/uL (0.0-0.7) Basophils # (Auto) 0.0 x10^3/uL (0.0-0.2) Platelet Estimate Decreased (ADEQUATE) Anisocytosis Mod Prothrombin Time 21.0 SEC (11.7-14.0) H Prothrombin Time INR 1.8 (0.8-1.1) H Sodium Level 125 mmol/L (136-145) L Potassium Level 4.0 mmol/L (3.5-5.1) Chloride Level 94 mmol/L (98-107) L Carbon Dioxide Level 23 mmol/L (21-32) Anion Gap 8 (6-14) Blood Urea Nitrogen 10 mg/dL (8-26) Creatinine 1.1 mg/dL (0.7-1.3) Estimated GFR (Cockcroft-Gault) 69.5 BUN/Creatinine Ratio 9 (6-20) Glucose Level 97 mg/dL (70-99) Calcium Level 8.3 mg/dL (8.5-10.1) L Total Bilirubin 3.4 mg/dL (0.2-1.0) H Aspartate Amino Transferase (AST) 42 U/L (15-37) H Alanine Aminotransferase (ALT) 18 U/L (16-63) Alkaline Phosphatase 130 U/L (46-116) H Total Protein 8.3 g/dL (6.4-8.2) H Albumin 1.5 g/dL (3.4-5.0) L Albumin/Globulin Ratio 0.2 (1.0-1.7) L Lipase 462 U/L (73-393) H Laboratory Tests 07/10/18 05:20 Laboratory Tests 07/10/18 05:20 EKG EKG [] Radiology/Procedures Radiology/Procedures [] Course & Med Decision Making Course & Med Decision Making Pertinent Labs and Imaging studies reviewed. (See chart for details) This is a 57-year-old male with history of end-stage liver disease presenting with abdominal distention and some discomfort. He has a long-standing history of same he really does not follow up he has a difficult social situation is really not very compliant. His lab work is essentially stable his sodium is actually looking better which is good he does have abdominal distention mild tenderness on exam. Low suspicion for SBP but he was covered just in case in the emergency room. Discussed with peripheral for admission GI consultation etc. similar to multiple previous admissions. Dragon Disclaimer Dragon Disclaimer This electronic medical record was generated, in whole or in part, using a voice recognition dictation system. Departure Departure Impression: Primary Impression: Ascites Disposition: ADMITTED INPATIENT Admitting Physician: Other Condition: STABLE Referrals: NO PCP (PCP) HERB ESPINO Jr., DO Jul 10, 2018 05:23 KEVIN FLORES MD Jul 10, 2018 07:57
[2018-07-10 05:33] LABS: BASO % 1 % (0-3); EOS # 0.1 x10^3/uL (0.0-0.7); EOS % 2 % (0-3); HEMATOCRIT 27.7 % (39.0-53.0); HEMOGLOBIN 9.6 g/dL (13.0-17.5); LYMPH # 1.6 x10^3/uL (1.0-4.8); LYMPH % 31 % (24-48); MEAN CORPUSCULAR HEMOGLOBIN 31 pg (25-35); MEAN CORPUSCULAR HGB CONC 35 g/dL (31-37); MEAN CORPUSCULAR VOLUME 90 fL (79-100); MONO # 0.5 x10^3/uL (0.0-1.1); MONO % 9 % (0-9); NEUT # 3.1 x10^3uL (1.8-7.7); NEUT % 58 % (31-73); PLATELET COUNT 101 x10^3/uL (140-400); RED BLOOD COUNT 3.08 x10^6/uL (4.30-5.70); RED CELL DISTRIBUTION WIDTH 20.9 % (11.5-14.5); WHITE BLOOD COUNT 5.3 x10^3/uL (4.0-11.0)
[2018-07-10] MEDS: fentaNYL PF VIAL 100 MCG/2 ML VIAL IV PRN ×5 (05:42→13:54)
[2018-07-10] MEDS ORDERED: ONDANSETRON PF 4 MG/2 ML VIAL. IV ONE (05:45)
[2018-07-10 05:47] LABS: CALCIUM 8.3 mg/dL (8.5-10.1); CREATININE 1.1 mg/dL (0.7-1.3); GFR 69.5
[2018-07-10 05:52] LABS: ALBUMIN 1.5 g/dL (3.4-5.0); ALBUMIN/GLOBULIN RATIO 0.2 (1.0-1.7); TOTAL BILIRUBIN 3.4 mg/dL (0.2-1.0); TOTAL PROTEIN 8.3 g/dL (6.4-8.2)
[2018-07-10 06:55] LABS: ANISOCYTOSIS MOD; PLT ESTIMATE DECREASED (ADEQUATE)
[2018-07-10] MEDS ORDERED: AZTREONAM IV Push 1 GM VIAL. IVP STA (07:47)
--- NOTE | 2018-07-10 08:04 | PDOC1 ---
History and Physical Date of Admission Date of Admission DATE: 07/10/18 TIME: 08:02 Identification/Chief Complaint Chief Complaint Abdominal Swelling Source Source: Chart review, Patient History of Present Illness History of Present Illness Mr Thompson is a 57yo M w/ PMHx cirrhosis with ascites who p/w worsening abdominal distention, swelling, shortness of breath. He is down to a couple beers a day. He has known cirrhosis. Pt had a paracentesis performed 05/11 in which 8 L of fluid was removed, 06/27/19 4.7 L removed and sent off for culture, Fluid studies c/w transudate as expected w/o infectious appearance. Still with significant LE edema. Pt reports feeling better after said procedure. He did admit to having a "reaction" to albumin that was given to him , stating he started "shaking and chills" improved with time and benadryl. Discussed hepatic diet with him and possible repeat paracentesis here if ok'd by GI. Pt was examined today. US 05/09 showed cholecystitis w/ out convincing evidence of cholecystitis ; CT 05/09 showed ascites, cirrhosis, steatosis, and cholelithiasis. Last paracentesis was 06/27/19 with 4.7 L removed Past Medical History Hepatobiliary: Cirrhosis Musculoskeletal: low back pain Past Surgical History Past Surgical History: Other Family History Family History: Hypertension Social History Smoke: No ALCOHOL: heavy Drugs: None Current Medications Current Medications Current Medications Fentanyl Citrate (Fentanyl 2ml Vial) 50 mcg PRN Q15MIN PRN IV PAIN GREATER THAN 3/10 Last administered on 07/10/18at 07:12; Start 07/10/18 at 05:30; Stop at 05:29 Ondansetron HCl (Zofran) 4 mg 1X ONCE IV Last administered on 07/10/18at 05:42 ; Start 07/10/18 at 05:45; Stop 07/10/18 at 05:46; Status DC Aztreonam (Azactam) 1 gm 1X STAT IVP ; Start 07/10/18 at 07:47; Stop 07/10/18 at 07:51; Status DC Active Scripts Active Capsaicin 60 Gm Cream..g. 1 Juan TP TID 14 Days Lidocaine 1 Each Adh..patch 1 Patch TD DAILY 14 Days Hydrocodone-Apap 5-325 (Hydrocodone Bit/Acetaminophen) 1 Tab Tablet 1 Tab PO PRN Q4HRS PRN Xifaxan (Rifaximin) 550 Mg Tablet 550 Mg PO Q12HR MDD 1 10 Days Furosemide 40 Mg Tablet 40 Mg PO BID94 30 Days Lactulose 20 Gm/30 Ml Solution 20 Gm PO TID PRN 30 Days Aldactone (Spironolactone) 25 Mg Tablet 100 Mg PO DAILY 30 Days Allergies Allergies: Coded Allergies: Penicillins (Verified Allergy, Severe, ANPHYLAXIS, 05/30/18) trovafloxacin (Verified Allergy, Severe, Anaphylaxis, 05/30/18) Anaphylactic Influenza Virus Vaccines (Verified Allergy, Intermediate, 06/16/18) ROS General: YES: Fatigue, Malaise; No: Chills, Night Sweats, Appetite, Other PSYCHOLOGICAL ROS: YES: Anxiety; No: Behavioral Disorder, Concentration difficultie, Decreased libido, Depression, Disorientation, Hallucinations, Hostility, Irritablity, Memory difficulties, Mood Swings, Obsessive thoughts, Physical abuse, Sexual abuse, Sleep disturbances, Suicidal ideation, Other Eyes: No Blurry vision, No Decreased vision, No Double vision, No Dry eyes, No Excessive tearing, No Eye Pain, No Itchy Eyes, No Loss of vision, No Photophobia , No Scotomata, No Uses contacts, No Uses glasses, No Other HEENT: No: Heacaches, Visual Changes, Hearing change, Nasal congestion, Nasal discharge, Oral lesions, Sinus pain, Sore Throat, Epistaxis, Sneezing, Snoring, Tinnitus, Vertigo, Vocal changes, Other ALLERGY AND IMMUNOLOGY: No: Hives, Insect Bite Sensitivity, Itchy/Watery Eyes, Nasal Congestion, Post Nasal Drip, Seasonal Allergies, Other Hematological and Lymphatic: YES: Brusing; No: Bleeding Problems, Blood Clots, Blood Transfusions, Night Sweats, Pallor , Swollen Lymph Nodes, Other ENDOCRINE: No: Breast Changes, Galactorrhea, Hair Pattern Changes, Hot Flashes , Malaise/lethargy, Mood Swings, Palpitations, Polydipsia/polyuria, Skin Changes , Temperature Intolerance, Unexpected Weight Changes, Other Breast: No New/Changing Breast Lumps, No Nipple changes, No Nipple discharge, No Other Respiratory: YES: Shortness of breath; No: Cough, Hemoptysis, Orthopnea, Pleuritic Pain, SOB with excertion, Sputum Changes, Stridor, Tachypnea, Wheezing, Other Cardiovascular: No Chest Pain, No Palpitations, No Orthopnea, No Paroxysmal Noc. Dyspnea, No Edema, No Lt Headedness, No Other Gastrointestinal: Yes Nausea, Yes Abdominal Pain; No Vomiting, No Diarrhea, No Constipation, No Melena, No Hematochezia, No Other Genitourinary: No Dysuria, No Frequency, No Incontinence, No Hematuria, No Retention, No Discharge, No Urgency, No Pain, No Flank Pain, No Other, No , No , No , No , No , No , No Musculoskeletal: No Gait Disturbance, No Joint Pain, No Joint Stiffness, No Joint Swelling, No Muscle Pain, No Muscular Weakness, No Pain In:, No Swelling In:, No Other Neurological: No Behavorial Changes, No Bowel/Bladder ControlChng, No Confusion , No Dizziness, No Gait Disturbance, No Headaches, No Impaired Coord/balance, No Memory Loss, No Numbness/Tingling, No Seizures, No Speech Problems, No Tremors, No Visual Changes, No Weakness, No Other Skin: No Dry Skin, No Eczema, No Hair Changes, No Lumps, No Mole Changes, No Mottling, No Nail Changes, No Pruritus, No Rash, No Skin Lesion Changes, No Other, No Acne Physical Exam General: Alert, Oriented X3, Cooperative, No acute distress HEENT: Atraumatic, PERRLA, EOMI, Mucous membr. moist/pink Lungs: Clear to auscultation, Normal air movement Heart: S1S2, RRR, no gallops, no murmurs Abdomen: Normal bowel sounds, Soft, Other (+ fluid wave, distended, not tender , firm) Rectal Exam: not examined Extremities: No clubbing, No cyanosis, Normal pulses, No tenderness/swelling, Other (1+ peripheral edema) Skin: No rashes, No breakdown, No significant lesion Neuro: Normal gait, Normal speech, Strength at 5/5 X4 ext, Normal tone, Sensation intact, Cranial nerves 3-12 NL, Reflexes 2+ Psych/Mental Status: Mental status NL, Mood NL Vitals Vitals Vital Signs Date Time Temp Pulse Resp B/P (MAP) Pulse Ox O2 Delivery O2 Flow Rate FiO2 07/10/18 07:12 15 99 Room Air 07/10/18 05:40 108 106/69 (81) 1/13/19 04:45 97.5 97.5 Labs Labs Laboratory Tests Test 07/10/18 05:20 White Blood Count 5.3 x10^3/uL (4.0-11.0) Red Blood Count 3.08 x10^6/uL (4.30-5.70) Hemoglobin 9.6 g/dL (13.0-17.5) Hematocrit 27.7 % (39.0-53.0) Mean Corpuscular Volume 90 fL (79-100) Mean Corpuscular Hemoglobin 31 pg (25-35) Mean Corpuscular Hemoglobin Concent 35 g/dL (31-37) Red Cell Distribution Width 20.9 % (11.5-14.5) Platelet Count 101 x10^3/uL (140-400) Neutrophils (%) (Auto) 58 % (31-73) Lymphocytes (%) (Auto) 31 % (24-48) Monocytes (%) (Auto) 9 % (0-9) Eosinophils (%) (Auto) 2 % (0-3) Basophils (%) (Auto) 1 % (0-3) Neutrophils # (Auto) 3.1 x10^3uL (1.8-7.7) Lymphocytes # (Auto) 1.6 x10^3/uL (1.0-4.8) Monocytes # (Auto) 0.5 x10^3/uL (0.0-1.1) Eosinophils # (Auto) 0.1 x10^3/uL (0.0-0.7) Basophils # (Auto) 0.0 x10^3/uL (0.0-0.2) Platelet Estimate Decreased (ADEQUATE) Anisocytosis Mod Prothrombin Time 21.0 SEC (11.7-14.0) Prothromb Time International Ratio 1.8 (0.8-1.1) Sodium Level 125 mmol/L (136-145) Potassium Level 4.0 mmol/L (3.5-5.1) Chloride Level 94 mmol/L (98-107) Carbon Dioxide Level 23 mmol/L (21-32) Anion Gap 8 (6-14) Blood Urea Nitrogen 10 mg/dL (8-26) Creatinine 1.1 mg/dL (0.7-1.3) Estimated GFR (Cockcroft-Gault) 69.5 BUN/Creatinine Ratio 9 (6-20) Glucose Level 97 mg/dL (70-99) Calcium Level 8.3 mg/dL (8.5-10.1) Total Bilirubin 3.4 mg/dL (0.2-1.0) Aspartate Amino Transf (AST/SGOT) 42 U/L (15-37) Alanine Aminotransferase (ALT/SGPT) 18 U/L (16-63) Alkaline Phosphatase 130 U/L (46-116) Total Protein 8.3 g/dL (6.4-8.2) Albumin 1.5 g/dL (3.4-5.0) Albumin/Globulin Ratio 0.2 (1.0-1.7) Lipase 462 U/L (73-393) Laboratory Tests Test 07/10/18 05:20 White Blood Count 5.3 x10^3/uL (4.0-11.0) Red Blood Count 3.08 x10^6/uL (4.30-5.70) Hemoglobin 9.6 g/dL (13.0-17.5) Hematocrit 27.7 % (39.0-53.0) Mean Corpuscular Volume 90 fL (79-100) Mean Corpuscular Hemoglobin 31 pg (25-35) Mean Corpuscular Hemoglobin Concent 35 g/dL (31-37) Red Cell Distribution Width 20.9 % (11.5-14.5) Platelet Count 101 x10^3/uL (140-400) Neutrophils (%) (Auto) 58 % (31-73) Lymphocytes (%) (Auto) 31 % (24-48) Monocytes (%) (Auto) 9 % (0-9) Eosinophils (%) (Auto) 2 % (0-3) Basophils (%) (Auto) 1 % (0-3) Neutrophils # (Auto) 3.1 x10^3uL (1.8-7.7) Lymphocytes # (Auto) 1.6 x10^3/uL (1.0-4.8) Monocytes # (Auto) 0.5 x10^3/uL (0.0-1.1) Eosinophils # (Auto) 0.1 x10^3/uL (0.0-0.7) Basophils # (Auto) 0.0 x10^3/uL (0.0-0.2) Platelet Estimate Decreased (ADEQUATE) Anisocytosis Mod Prothrombin Time 21.0 SEC (11.7-14.0) Prothromb Time International Ratio 1.8 (0.8-1.1) Sodium Level 125 mmol/L (136-145) Potassium Level 4.0 mmol/L (3.5-5.1) Chloride Level 94 mmol/L (98-107) Carbon Dioxide Level 23 mmol/L (21-32) Anion Gap 8 (6-14) Blood Urea Nitrogen 10 mg/dL (8-26) Creatinine 1.1 mg/dL (0.7-1.3) Estimated GFR (Cockcroft-Gault) 69.5 BUN/Creatinine Ratio 9 (6-20) Glucose Level 97 mg/dL (70-99) Calcium Level 8.3 mg/dL (8.5-10.1) Total Bilirubin 3.4 mg/dL (0.2-1.0) Aspartate Amino Transf (AST/SGOT) 42 U/L (15-37) Alanine Aminotransferase (ALT/SGPT) 18 U/L (16-63) Alkaline Phosphatase 130 U/L (46-116) Total Protein 8.3 g/dL (6.4-8.2) Albumin 1.5 g/dL (3.4-5.0) Albumin/Globulin Ratio 0.2 (1.0-1.7) Lipase 462 U/L (73-393) VTE Prophylaxis Ordered VTE Prophylaxis Devices: Yes VTE Pharmacological Prophylaxi: No Assessment/Plan Assessment/Plan A/P: Abdominal distention, shortness of breath and edema - consistent with ascites 2/ 2 ETOH abuse. States he is taking his lasix and aldactone and rifaximin as well as lactulose. aldactone + lasix. Cease alcohol. Will await GI recs, but he appears stable Cirrhosis with ascites -2/2 ETOH abuse. States he is taking his lasix and aldactone and rifaximin as well as lactulose. Consulted GI, will consult IR for repeat paracentesis Cholelithiasis - stable Constipation - lactulose and rifaximin Hyponatremia - likely 2/2 liver disease. Will monitor as this bodes poorly for his outcome. Will check PTT to consider his madrey discriminant function score Anemia - likely 2/2 ETOH abuse Thrombocytopenia - likely 2/2 ETOH liver disease FEN - General diet PPX - SCDs, thrombocytopenia with drop in platelets greater than 50% FULL CODE Inpatient for acute worsening ascites in cirrhotic patient, in for at least 2 midnights. CHARLES EMERSON MD Jul 10, 2018 08:04
--- NOTE | 2018-07-10 08:34 | RAD ---
COMPLETE ABDOMINAL ULTRASOUND Clinical History: DX: Abd pain; ascities Comparison: None. Technique: Sonographic examination of the abdomen was performed and multiple grayscale and color Doppler static images were obtained. Findings: Scan is limited due to abdominal ascites. Limited visualization of the liver, kidneys, and gallbladder. The pancreas is obscured. The abdominal aorta and IVC are poorly visualized. Visualized liver is normal in echotexture. There is a nodular contour compatible with cirrhosis. The liver measures 17.5 cm. Ultrasound is not sensitive for detecting solid liver lesions. The common bile duct is normal in caliber, measuring 3 mm in diameter. The gallbladder wall is thickened measuring 5 mm. Finding may be reactive related to abdominal ascites or intrinsic due to cholecystitis. Finding has been seen previously when the wall measured up to 10 mm. There is no cholelithiasis or pericholecystic fluid. The right kidney measures 10.1 cm. The left kidney measures 9 cm. The spleen is mildly enlarged, measuring 13 cm. IMPRESSION: 1. Limited scan due to moderate abdominal ascites. 2. Cirrhotic liver. 3. Mild splenomegaly. 4. Gallbladder wall thickening, less than on prior study. Electronically signed by: Hay Merrill MD (07/10/2018 8:29 AM) [facility]
--- NOTE | 2018-07-10 08:44 | RAD ---
Indication:EVAL FOR PLEURAL EFFUSION TECHNIQUE:Portable AP chest X-ray COMPARISON:06/26/2018 FINDINGS: Poor inspiratory effort. Heart is normal in size. No blunting of bilateral costophrenic angles. Mild prominence of bilateral bronchovascular markings which may be secondary to vascular crowding. No pneumothorax. Visualized bony thorax within normal limits. IMPRESSION: No pleural effusion. Electronically signed by: Felix Patton DO (07/10/2018 8:39 AM) [facility]
[2018-07-10 11:00] VITALS: BP 99/68
--- NOTE | 2018-07-10 12:51 | PDOC2 ---
GI CONSULT Reason For Consult: Recurrent ascites. HPI: HPI: 57 y/o male we have seen frequently of late due to repeated admissions for recurrent ascites. Presented early this morning to ER with abdominal discomfort and significant ascites. No N, V, fever, chills. Has had repeated paracenteses. Says compliant with meds; unclear how compliant with salt restriction. H/o alcoholic cirrhosis. Unclear what if any ongoing alcohol exposure; has in past admitted to low alcohol beer. Says normal stools now; has been past issue. No HB, dysphagia. Has claimed remote "ulcer" by UGI series. No prior endoscopy. Known gallstones. No h/o pancreatic problems. Non-smoker. PMH: PMH: Left knee surgery, otherwise negative save above. FH: Family History: Other (uncle with alcoholic liver disease) Social History: Smoke: No ALCOHOL: heavy (in the past) Drugs: None ROS: GEN: Denies fevers, chills, sweats HEENT: Denies blurred vision, sore throat CV: Denies chest pain RESP: Denies shortness of air, cough GI: Per HPI : Denies hematuria, dysuria ENDO: Denies dry weight changes NEURO: Denies confusion, dizziness MSK: Denies weakness, joint pain/swelling SKIN: Denies jaundice, pruritus Vitals: Vitals: Vital Signs Date Time Temp Pulse Resp B/P (MAP) Pulse Ox O2 Delivery O2 Flow Rate FiO2 07/10/18 11:00 98.5 111 16 99/68 (78) 98 Room Air 98.5 Labs: Labs: Laboratory Tests Test 07/10/18 05:20 07/10/18 08:00 White Blood Count 5.3 x10^3/uL (4.0-11.0) Red Blood Count 3.08 x10^6/uL (4.30-5.70) Hemoglobin 9.6 g/dL (13.0-17.5) Hematocrit 27.7 % (39.0-53.0) Mean Corpuscular Volume 90 fL (79-100) Mean Corpuscular Hemoglobin 31 pg (25-35) Mean Corpuscular Hemoglobin Concent 35 g/dL (31-37) Red Cell Distribution Width 20.9 % (11.5-14.5) Platelet Count 101 x10^3/uL (140-400) Neutrophils (%) (Auto) 58 % (31-73) Lymphocytes (%) (Auto) 31 % (24-48) Monocytes (%) (Auto) 9 % (0-9) Eosinophils (%) (Auto) 2 % (0-3) Basophils (%) (Auto) 1 % (0-3) Neutrophils # (Auto) 3.1 x10^3uL (1.8-7.7) Lymphocytes # (Auto) 1.6 x10^3/uL (1.0-4.8) Monocytes # (Auto) 0.5 x10^3/uL (0.0-1.1) Eosinophils # (Auto) 0.1 x10^3/uL (0.0-0.7) Basophils # (Auto) 0.0 x10^3/uL (0.0-0.2) Platelet Estimate Decreased (ADEQUATE) Anisocytosis Mod Prothrombin Time 21.0 SEC (11.7-14.0) Prothromb Time International Ratio 1.8 (0.8-1.1) Sodium Level 125 mmol/L (136-145) Potassium Level 4.0 mmol/L (3.5-5.1) Chloride Level 94 mmol/L (98-107) Carbon Dioxide Level 23 mmol/L (21-32) Anion Gap 8 (6-14) Blood Urea Nitrogen 10 mg/dL (8-26) Creatinine 1.1 mg/dL (0.7-1.3) Estimated GFR (Cockcroft-Gault) 69.5 BUN/Creatinine Ratio 9 (6-20) Glucose Level 97 mg/dL (70-99) Calcium Level 8.3 mg/dL (8.5-10.1) Total Bilirubin 3.4 mg/dL (0.2-1.0) Aspartate Amino Transf (AST/SGOT) 42 U/L (15-37) Alanine Aminotransferase (ALT/SGPT) 18 U/L (16-63) Alkaline Phosphatase 130 U/L (46-116) Total Protein 8.3 g/dL (6.4-8.2) Albumin 1.5 g/dL (3.4-5.0) Albumin/Globulin Ratio 0.2 (1.0-1.7) Lipase 462 U/L (73-393) Lactic Acid Level 2.2 mmol/L (0.4-2.0) Mild pancytopenia. LFT's stable. Hyponatremic as is usual at presentation. Allergies: Coded Allergies: Penicillins (Verified Allergy, Severe, ANPHYLAXIS, 05/30/18) trovafloxacin (Verified Allergy, Severe, Anaphylaxis, 05/30/18) Anaphylactic Influenza Virus Vaccines (Verified Allergy, Intermediate, 06/16/18) Medications: Current Medications Medications (Trade) Dose Ordered Sig/Marc Route PRN Reason Start Time Stop Time Status Last Admin Dose Admin Fentanyl Citrate (Fentanyl 2ml Vial) 50 mcg PRN Q15MIN PRN IV PAIN GREATER THAN 10 07/10/18 05:30 07/11/18 05:29 07/10/18 10:24 Ondansetron HCl (Zofran) 4 mg 1X ONCE IV 07/10/18 05:45 07/10/18 05:46 DC 07/10/18 05:42 Aztreonam (Azactam) 1 gm 1X STAT IVP 07/10/18 07:47 07/10/18 07:51 DC 07/10/18 08:21 Imaging: Imaging: On sonogram: IMPRESSION: 1. Limited scan due to moderate abdominal ascites. 2. Cirrhotic liver. 3. Mild splenomegaly. 4. Gallbladder wall thickening, less than on prior study. PE: GEN: NAD HEENT: Atraumatic, PERRLA LUNGS: CTAB HEART: RRR, no murmurs ABD: NABS, Tense ascites. Difficult to appreciate any other on palpation. EXTREMITY: 1-2+ LE edema SKIN: No rashes, no jaundice NEURO/PSYCH: A & O �3 A/P: A/P: IMP: Recurrent ascites, refractory? Little to suggest SBP, other aggravating factor. Hyponatremic as is usual for him. Alcoholic cirrhosis. REC: Continue spironolactone, furosemide. Fluid/sodium restrict. Paracentesis when able. Follow daily weights, labs. Thanks. SUSAN LOUIS MD Jul 10, 2018 12:51
[2018-07-10] MEDS ORDERED: LACTULOSE 20 GM/30 ML SOLUTION. PO PRN (13:15)
[2018-07-10] MEDS ORDERED: SPIRONOLACTONE 25 MG TABLET PO SCH (14:00)
[2018-07-10] MEDS ORDERED: CAPSAICIN 0.025% TOPICAL CREAM 60GM TUBE. TP PRN (14:00)
[2018-07-10] MEDS: rifAXIMin 550 MG TABLET PO SCH ×2 (15:27→20:48)
[2018-07-10] MEDS: LIDOCAINE (700MG/PATCH) PATCH. TD SCH (15:27)
[2018-07-10] MEDS: SPIRONOLACTONE 25 MG TABLET PO SCH (15:27)
[2018-07-10] MEDS: FUROSEMIDE 40 MG TABLET. PO SCH (15:28)
[2018-07-10 15:45] VITALS: BP 92/66
[2018-07-10] MEDS ORDERED: FUROSEMIDE 40 MG TABLET. PO SCH (16:00)
[2018-07-10] MEDS: HYDROcodone/APAP 5/325MG 1 TAB TABLET PO PRN ×2 (17:02→21:13)
[2018-07-10 19:10] VITALS: BP 108/73
[2018-07-10] MEDS: PATCH REMOVAL. MC SCH (21:00)
[2018-07-10] MEDS: tiZANidine 4 MG TABLET. PO PRN (21:53)
[2018-07-10 23:35] VITALS: BP 95/69
[2018-07-11] VITALS (10 sets, daily range): BP systolic 73–102; BP diastolic 40–65
[2018-07-11] MEDS ORDERED: ALBUMIN HUMAN 25% 100 ML IV ONE ×3 (08:19→10:00)
[2018-07-11] MEDS: LIDOCAINE (700MG/PATCH) PATCH. TD SCH (09:00)
[2018-07-11] MEDS: SPIRONOLACTONE 25 MG TABLET PO SCH (10:11)
[2018-07-11] MEDS: rifAXIMin 550 MG TABLET PO SCH ×2 (10:11→20:32)
[2018-07-11] MEDS: FUROSEMIDE 40 MG TABLET. PO SCH ×2 (10:11→16:35)
[2018-07-11] MEDS: HYDROcodone/APAP 5/325MG 1 TAB TABLET PO PRN ×3 (10:30→20:32)
[2018-07-11] MEDS: tiZANidine 4 MG TABLET. PO PRN ×2 (10:31→16:36)
--- NOTE | 2018-07-11 10:34 | RAD ---
Ultrasound-guided paracentesis 07/11/2018 10:29 AM Procedure: The risks and benefits of the procedure were discussed the patient. Informed consent was obtained. A timeout procedure was performed. Sonographic evaluation of the abdomen was performed demonstrating ascites . The left lower quadrant was prepped and draped using maximum sterile barrier technique. 1% lidocaine without epinephrine was administered for local anesthesia. Real-time ultrasonographic guidance was used in passing a 5 [place] Yueh catheter into the fluid collection. 7 L of serous ascites was removed. The catheter was removed and pressure held to achieve hemostasis. A sterile dressing was applied. Impression: Successful ultrasound-guided paracentesis
--- NOTE | 2018-07-11 11:03 | PDOC ---
Subjective: Subjective: Back from paracentesis, eating breakfast, says his legs feel weak like they did at home. Objective: Vital Signs: Vital Signs Date Time Temp Pulse Resp B/P (MAP) Pulse Ox O2 Delivery O2 Flow Rate FiO2 07/11/18 10:30 93 Room Air 07/11/18 10:22 97.9 66 17 86/57 (67) 97.9 PE: GEN: NAD, up to chair eating breakfast LUNGS: room air ABD: soft EXTREMITY: BLE pitting edema NEURO/PSYCH: A & O �3 A/P: Alcoholic cirrhosis - on Xifaxan and lactulose Recurrent ascites - on PO diuretics, s/p paracentesis (7L) Anemia, thrombocytopenia, coagulopathy, hyponatremia - stable -- Continue same. VALERIA ALCOCER Jul 11, 2018 11:03
--- NOTE | 2018-07-11 11:36 | PDOC ---
PROGRESS NOTES Chief Complaint Chief Complaint CC: Abdominal swelling History of Present Illness History of Present Illness Patient seen and examined this morning. Mr. Thompson is well known to us and has required paracentesis for cirrhosis multiple times in the past. Received paracentesis this morning where, according to the patient, they removed 7L of fluid. He has a history of alcoholism. He seems to be doing well and approaching baseline. Vitals Vitals Vital Signs Date Time Temp Pulse Resp B/P (MAP) Pulse Ox O2 Delivery O2 Flow Rate FiO2 07/11/18 10:30 93 Room Air 07/11/18 10:22 97.9 66 17 86/57 (67) 97.9 Physical Exam General: Alert, Oriented X3, Cooperative, No acute distress Heart: Regular rate, No murmurs Lungs: Clear Abdomen: Normal bowel sounds, Soft Extremities: No clubbing, No cyanosis, Normal pulses, No tenderness/swelling, Other (1+ peripheral edema) Skin: No rashes, No breakdown, No significant lesion Review of Systems Review of Systems GI: reports decrease in fluid and feeling better following paracentesis Heart: denies chest pain Lung: denies soa Assessment and Plan Assessmemt and Plan Assessment: 1. Cirrhosis/Ascites 2. Alcoholism Plan: 1. Discharge disposition pending 2. Hepatic diet 3. PT/OT 4. home meds 5. Will follow INR Comment Review of Relevant I have reviewed the following items arlette (where applicable) has been applied. Labs Laboratory Tests Test 07/10/18 05:20 07/10/18 08:00 White Blood Count 5.3 x10^3/uL (4.0-11.0) Red Blood Count 3.08 x10^6/uL (4.30-5.70) Hemoglobin 9.6 g/dL (13.0-17.5) Hematocrit 27.7 % (39.0-53.0) Mean Corpuscular Volume 90 fL (79-100) Mean Corpuscular Hemoglobin 31 pg (25-35) Mean Corpuscular Hemoglobin Concent 35 g/dL (31-37) Red Cell Distribution Width 20.9 % (11.5-14.5) Platelet Count 101 x10^3/uL (140-400) Neutrophils (%) (Auto) 58 % (31-73) Lymphocytes (%) (Auto) 31 % (24-48) Monocytes (%) (Auto) 9 % (0-9) Eosinophils (%) (Auto) 2 % (0-3) Basophils (%) (Auto) 1 % (0-3) Neutrophils # (Auto) 3.1 x10^3uL (1.8-7.7) Lymphocytes # (Auto) 1.6 x10^3/uL (1.0-4.8) Monocytes # (Auto) 0.5 x10^3/uL (0.0-1.1) Eosinophils # (Auto) 0.1 x10^3/uL (0.0-0.7) Basophils # (Auto) 0.0 x10^3/uL (0.0-0.2) Platelet Estimate Decreased (ADEQUATE) Anisocytosis Mod Prothrombin Time 21.0 SEC (11.7-14.0) Prothromb Time International Ratio 1.8 (0.8-1.1) Sodium Level 125 mmol/L (136-145) Potassium Level 4.0 mmol/L (3.5-5.1) Chloride Level 94 mmol/L (98-107) Carbon Dioxide Level 23 mmol/L (21-32) Anion Gap 8 (6-14) Blood Urea Nitrogen 10 mg/dL (8-26) Creatinine 1.1 mg/dL (0.7-1.3) Estimated GFR (Cockcroft-Gault) 69.5 BUN/Creatinine Ratio 9 (6-20) Glucose Level 97 mg/dL (70-99) Calcium Level 8.3 mg/dL (8.5-10.1) Total Bilirubin 3.4 mg/dL (0.2-1.0) Aspartate Amino Transf (AST/SGOT) 42 U/L (15-37) Alanine Aminotransferase (ALT/SGPT) 18 U/L (16-63) Alkaline Phosphatase 130 U/L (46-116) Total Protein 8.3 g/dL (6.4-8.2) Albumin 1.5 g/dL (3.4-5.0) Albumin/Globulin Ratio 0.2 (1.0-1.7) Lipase 462 U/L (73-393) Lactic Acid Level 2.2 mmol/L (0.4-2.0) Microbiology 07/10/18 Blood Culture - Preliminary, Resulted NO GROWTH AFTER 1 DAY Medications Current Medications Fentanyl Citrate (Fentanyl 2ml Vial) 50 mcg PRN Q15MIN PRN IV PAIN GREATER THAN 3/10 Last administered on 07/10/18at 13:54; Start 07/10/18 at 05:30; Stop at 05:29; Status DC Ondansetron HCl (Zofran) 4 mg 1X ONCE IV Last administered on 07/10/18at 05:42 ; Start 07/10/18 at 05:45; Stop 07/10/18 at 05:46; Status DC Aztreonam (Azactam) 1 gm 1X STAT IVP Last administered on 07/10/18at 08:21; Start 07/10/18 at 07:47; Stop 07/10/18 at 07:51; Status DC Spironolactone (Aldactone) 100 mg DAILY PO ; Start 07/10/18 at 14:00; Status Cancel Furosemide (Lasix) 40 mg BID92 PO Last administered on 07/11/18at 10:11; Start 07/10/18 at 14:00 Furosemide (Lasix) 40 mg BID94 PO ; Start 07/10/18 at 16:00; Status UNV Acetaminophen/ Hydrocodone Bitart (Lortab 5/325) 1 tab PRN Q4HRS PRN PO SEVERE PAIN Last administered on 07/11/18at 10:30; Start 07/10/18 at 13:15 Lactulose (Lactulose) 20 gm PRN TID PRN PO CONSTIPATION; Start 07/10/18 at 13: 15 Rifaximin (Xifaxan) 550 mg Q12HR PO Last administered on 07/11/18at 10:11; Start 07/10/18 at 14:00 Capsaicin (Zostrix) 1 juan PRN TID PRN TP ARTHRALGIA; Start 07/10/18 at 14:00 Lidocaine (Lidoderm) 1 patch DAILY TD Last administered on 07/10/18at 15:27; Start 07/10/18 at 14:00 Spironolactone (Aldactone) 100 mg DAILY PO Last administered on 07/11/18at 10:11 ; Start 07/10/18 at 14:00 Miscellaneous (Lidoderm Patch Removal) 1 ea QHS MC Last administered on at 21:00; Start 07/10/18 at 21:00 Tizanidine HCl (Zanaflex) 2 mg PRN Q8HRS PRN PO MUSCLE SPASMS Last administered on 07/11/18at 10:31; Start 07/10/18 at 21:45 Albumin Human 100 ml @ As Directed STK-MED ONCE IV ; Start 07/11/18 at 08:19; Stop 07/11/18 at 08:21; Status DC Albumin Human 100 ml @ 100 mls/hr 1X ONCE IV Last administered on 07/11/18at 08:30; Start 07/11/18 at 08:30; Stop 07/11/18 at 09:29; Status DC Albumin Human 100 ml @ 100 mls/hr 1X ONCE IV Last administered on 07/11/18at 10:13; Start 07/11/18 at 10:00; Stop 07/11/18 at 10:59; Status DC Active Scripts Active Capsaicin 60 Gm Cream..g. 1 Juan TP TID 14 Days Lidocaine 1 Each Adh..patch 1 Patch TD DAILY 14 Days Hydrocodone-Apap 5-325 (Hydrocodone Bit/Acetaminophen) 1 Tab Tablet 1 Tab PO PRN Q4HRS PRN Xifaxan (Rifaximin) 550 Mg Tablet 550 Mg PO Q12HR MDD 1 10 Days Furosemide 40 Mg Tablet 40 Mg PO BID94 30 Days Lactulose 20 Gm/30 Ml Solution 20 Gm PO TID PRN 30 Days Aldactone (Spironolactone) 25 Mg Tablet 100 Mg PO DAILY 30 Days Vitals/I & O Vital Sign - Last 24 Hours 07/10/18 07/10/18 07/10/18 07/10/18 14:32 15:45 17:02 19:10 Temp 98.1 97.7 98.1 97.7 Pulse 112 110 Resp 18 20 B/P (MAP) 92/66 (75) 108/73 (85) Pulse Ox 95 98 O2 Delivery Room Air Room Air Room Air Room Air 07/10/18 07/10/18 07/10/18 07/10/18 20:00 21:13 22:42 23:35 Temp 98.3 98.3 Pulse 107 Resp 20 B/P (MAP) 95/69 (78) Pulse Ox 98 98 96 O2 Delivery Room Air Room Air Room Air Room Air 07/11/18 07/11/18 07/11/18 07/11/18 03:49 07:12 08:16 08:26 Temp 97.9 98.1 97.9 98.1 Pulse 85 65 62 85 Resp 20 17 14 13 B/P (MAP) 93/60 (71) 73/40 (51) 96/54 (68) 97/61 (73) Pulse Ox 99 96 96 98 O2 Delivery Room Air Room Air Room Air Room Air 07/11/18 07/11/18 07/11/18 07/11/18 08:36 08:54 10:22 10:30 Temp 97.9 97.9 Pulse 82 80 66 Resp 13 12 17 B/P (MAP) 98/63 (75) 102/65 (77) 86/57 (67) Pulse Ox 99 99 93 93 O2 Delivery Room Air Room Air Room Air Room Air Intake and Output 07/10/18 07/10/18 07/11/18 15:01 23:01 07:01 Intake Total 180 ml 250 ml 250 ml Balance 180 ml 250 ml 250 ml HEYDI LANGFORD III DO Jul 11, 2018 11:36
[2018-07-11 12:02] LABS: PROTHROMBIN TIME PATIENT 24.2 SEC (11.7-14.0)
[2018-07-11 12:24] LABS: CALCIUM 8.2 mg/dL (8.5-10.1); CREATININE 1.2 mg/dL (0.7-1.3); DIRECT BILIRUBIN 1.4 mg/dL (0.0-0.2); GFR 62.9; POTASSIUM 4.2 mmol/L (3.5-5.1); TOTAL BILIRUBIN 3.3 mg/dL (0.2-1.0); TOTAL PROTEIN 6.9 g/dL (6.4-8.2)
[2018-07-11] MEDS: PATCH REMOVAL. MC SCH (20:36)
[2018-07-12] MEDS: HYDROcodone/APAP 5/325MG 1 TAB TABLET PO PRN ×4 (02:50→20:35)
[2018-07-12 03:00] VITALS: BP 77/49
[2018-07-12 07:46] VITALS: BP 69/48
[2018-07-12] MEDS: SPIRONOLACTONE 25 MG TABLET PO SCH (08:42)
[2018-07-12] MEDS: FUROSEMIDE 40 MG TABLET. PO SCH ×2 (08:42→14:08)
[2018-07-12] MEDS: rifAXIMin 550 MG TABLET PO SCH ×2 (08:43→20:35)
[2018-07-12] MEDS: LIDOCAINE (700MG/PATCH) PATCH. TD SCH (08:43)
[2018-07-12 11:27] VITALS: BP 84/56
--- NOTE | 2018-07-12 11:41 | PDOC ---
Subjective: Subjective: Says he was told "the outlook isn't good" so he's just trying to make it through today. Appetite is good. Objective: Vital Signs: Vital Signs Date Time Temp Pulse Resp B/P (MAP) Pulse Ox O2 Delivery O2 Flow Rate FiO2 07/12/18 11:27 97.8 94 18 84/56 (65) 98 Room Air 97.8 PE: GEN: NAD, walking around the room LUNGS: room air ABD: stable in appearance EXTREMITY: BLE edema NEURO/PSYCH: A & O �3 A/P: Alcoholic cirrhosis -- Continue same per GI. VALERIA ALCOCER Jul 12, 2018 11:41
--- NOTE | 2018-07-12 11:45 | PDOC ---
PROGRESS NOTES Chief Complaint Chief Complaint CC: Abdominal swelling History of Present Illness History of Present Illness Patient seen and examined this morning. Discussed with patient that with an INR of 2, [employer] continuous churn goals of care should be discussed. Plan is to have palliative care to talk to him. Vitals Vitals Vital Signs Date Time Temp Pulse Resp B/P (MAP) Pulse Ox O2 Delivery O2 Flow Rate FiO2 07/12/18 11:27 97.8 94 18 84/56 (65) 98 Room Air 97.8 Physical Exam General: Alert, Oriented X3, Cooperative, No acute distress Heart: Regular rate, No murmurs Lungs: Clear Abdomen: Normal bowel sounds, Soft Extremities: No clubbing, No cyanosis, Normal pulses, No tenderness/swelling, Other (1+ peripheral edema) Skin: No rashes, No breakdown, No significant lesion Review of Systems Review of Systems Heart: denies chest pain Lung: denies soa Assessment and Plan Assessmemt and Plan Assessment: 1. Ascites/cirrhosis Plan: 1. Palliative care consulted for [employer] continuous churn goals of care management 2. home meds 3. PT/OT 4. frequent labs 5. appreciate subspecialty input Comment Review of Relevant I have reviewed the following items arlette (where applicable) has been applied. Labs Laboratory Tests Test 07/11/18 11:30 Prothrombin Time 24.2 SEC (11.7-14.0) Prothromb Time International Ratio 2.2 (0.8-1.1) Activated Partial Thromboplast Time 42 SEC (24-38) Sodium Level 128 mmol/L (136-145) Potassium Level 4.2 mmol/L (3.5-5.1) Chloride Level 95 mmol/L (98-107) Carbon Dioxide Level 24 mmol/L (21-32) Anion Gap 9 (6-14) Blood Urea Nitrogen 12 mg/dL (8-26) Creatinine 1.2 mg/dL (0.7-1.3) Estimated GFR (Cockcroft-Gault) 62.9 Glucose Level 116 mg/dL (70-99) Calcium Level 8.2 mg/dL (8.5-10.1) Total Bilirubin 3.3 mg/dL (0.2-1.0) Direct Bilirubin 1.4 mg/dL (0.0-0.2) Aspartate Amino Transf (AST/SGOT) 32 U/L (15-37) Alanine Aminotransferase (ALT/SGPT) 16 U/L (16-63) Alkaline Phosphatase 99 U/L (46-116) Total Protein 6.9 g/dL (6.4-8.2) Albumin 2.0 g/dL (3.4-5.0) Microbiology 07/10/18 Blood Culture - Preliminary, Resulted NO GROWTH AFTER 2 DAYS Medications Current Medications Fentanyl Citrate (Fentanyl 2ml Vial) 50 mcg PRN Q15MIN PRN IV PAIN GREATER THAN 3/10 Last administered on 07/10/18at 13:54; Start 07/10/18 at 05:30; Stop at 05:29; Status DC Ondansetron HCl (Zofran) 4 mg 1X ONCE IV Last administered on 07/10/18at 05:42 ; Start 07/10/18 at 05:45; Stop 07/10/18 at 05:46; Status DC Aztreonam (Azactam) 1 gm 1X STAT IVP Last administered on 07/10/18at 08:21; Start 07/10/18 at 07:47; Stop 07/10/18 at 07:51; Status DC Spironolactone (Aldactone) 100 mg DAILY PO ; Start 07/10/18 at 14:00; Status Cancel Furosemide (Lasix) 40 mg BID92 PO Last administered on 07/12/18at 08:42; Start 07/10/18 at 14:00 Furosemide (Lasix) 40 mg BID94 PO ; Start 07/10/18 at 16:00; Status UNV Acetaminophen/ Hydrocodone Bitart (Lortab 5/325) 1 tab PRN Q4HRS PRN PO SEVERE PAIN Last administered on 07/12/18at 08:50; Start 07/10/18 at 13:15 Lactulose (Lactulose) 20 gm PRN TID PRN PO CONSTIPATION; Start 07/10/18 at 13: 15 Rifaximin (Xifaxan) 550 mg Q12HR PO Last administered on 07/12/18at 08:43; Start 07/10/18 at 14:00 Capsaicin (Zostrix) 1 juan PRN TID PRN TP ARTHRALGIA; Start 07/10/18 at 14:00 Lidocaine (Lidoderm) 1 patch DAILY TD Last administered on 07/10/18at 15:27; Start 07/10/18 at 14:00 Spironolactone (Aldactone) 100 mg DAILY PO Last administered on 07/12/18at 08:42 ; Start 07/10/18 at 14:00 Miscellaneous (Lidoderm Patch Removal) 1 ea QHS MC Last administered on at 21:00; Start 07/10/18 at 21:00 Tizanidine HCl (Zanaflex) 2 mg PRN Q8HRS PRN PO MUSCLE SPASMS Last administered on 07/11/18at 16:36; Start 07/10/18 at 21:45 Albumin Human 100 ml @ As Directed STK-MED ONCE IV ; Start 07/11/18 at 08:19; Stop 07/11/18 at 08:21; Status DC Albumin Human 100 ml @ 100 mls/hr 1X ONCE IV Last administered on 07/11/18at 08:30; Start 07/11/18 at 08:30; Stop 07/11/18 at 09:29; Status DC Albumin Human 100 ml @ 100 mls/hr 1X ONCE IV Last administered on 07/11/18at 10:13; Start 07/11/18 at 10:00; Stop 07/11/18 at 10:59; Status DC Active Scripts Active Capsaicin 60 Gm Cream..g. 1 Juan TP TID 14 Days Lidocaine 1 Each Adh..patch 1 Patch TD DAILY 14 Days Hydrocodone-Apap 5-325 (Hydrocodone Bit/Acetaminophen) 1 Tab Tablet 1 Tab PO PRN Q4HRS PRN Xifaxan (Rifaximin) 550 Mg Tablet 550 Mg PO Q12HR MDD 1 10 Days Furosemide 40 Mg Tablet 40 Mg PO BID94 30 Days Lactulose 20 Gm/30 Ml Solution 20 Gm PO TID PRN 30 Days Aldactone (Spironolactone) 25 Mg Tablet 100 Mg PO DAILY 30 Days Vitals/I & O Vital Sign - Last 24 Hours 07/11/18 07/11/18 07/11/18 07/11/18 15:00 16:36 16:38 19:00 Temp 97.3 98.3 97.3 98.3 Pulse 74 76 Resp 17 20 B/P (MAP) 83/60 (68) 87/49 (62) Pulse Ox 94 99 O2 Delivery Room Air Room Air Room Air Room Air 1/1407/11/18 07/12/18 07/12/18 20:00 23:00 03:00 07:46 Temp 97.8 97.9 97.7 97.8 97.9 97.7 Pulse 75 90 82 Resp 17 19 18 B/P (MAP) 88/55 (66) 77/49 (58) 69/48 (55) Pulse Ox 96 100 93 O2 Delivery Room Air Room Air Room Air Room Air 07/12/18 07/12/18 07/12/18 07/12/18 08:00 08:50 10:11 11:27 Temp 97.8 97.8 Pulse 94 Resp 18 B/P (MAP) 84/56 (65) Pulse Ox 93 93 98 O2 Delivery Room Air Room Air Room Air Room Air Intake and Output 07/11/18 07/11/18 07/12/18 15:01 23:01 07:01 Intake Total 340 ml 1350 ml 630 ml Output Total 7100 ml 600 ml Balance -6760 ml 1350 ml 30 ml HEYDI LANGFORD III, DO Jul 12, 2018 11:45
[2018-07-12] MEDS: tiZANidine 4 MG TABLET. PO PRN ×2 (13:04→20:35)
--- NOTE | 2018-07-12 14:28 | PDOC2 ---
PALLIATIVE CARE Palliative Care Note Palliative Care Consult requested by Dr. Stiles to address goals of care. Medical Assessment per medical record 1. Ascites/cirrhosis Patient alert. Sitting up in chair. Patient refuses to have conversation regarding his medical condition and goals of care. Wants to talk with regarding what he has been told. Will check tomorrow to see if patient is open for discussion regarding his goals of care NYA VIVEROS Jul 12, 2018 14:28
[2018-07-12 14:33] LABS: CREATININE 1.5 mg/dL (0.7-1.3); GFR 48.6; POTASSIUM 4.6 mmol/L (3.5-5.1)
[2018-07-12 15:16] VITALS: BP 82/56
[2018-07-12 19:00] VITALS: BP 85/57
[2018-07-12] MEDS: PATCH REMOVAL. MC SCH (20:40)
[2018-07-12 22:37] VITALS: BP 90/63
[2018-07-13] MEDS: HYDROcodone/APAP 5/325MG 1 TAB TABLET PO PRN ×4 (01:15→18:15)
[2018-07-13 02:41] VITALS: BP 89/61
[2018-07-13] MEDS: tiZANidine 4 MG TABLET. PO PRN ×2 (05:54→13:49)
[2018-07-13 07:00] VITALS: BP 72/46
--- NOTE | 2018-07-13 08:43 | PDOC ---
Subjective: Subjective: Doing okay - eating well, says stooling and urinating normally. Objective: Vital Signs: Vital Signs Date Time Temp Pulse Resp B/P (MAP) Pulse Ox O2 Delivery O2 Flow Rate FiO2 07/13/18 07:03 97 Room Air 07/13/18 07:00 97.5 80 18 72/46 (55) 97.5 Labs: Laboratory Tests Test 07/12/18 14:10 Sodium Level 126 mmol/L Potassium Level 4.6 mmol/L Chloride Level 93 mmol/L Carbon Dioxide Level 21 mmol/L Anion Gap 12 Blood Urea Nitrogen 15 mg/dL Creatinine 1.5 mg/dL Estimated GFR (Cockcroft-Gault) 48.6 Glucose Level 128 mg/dL Calcium Level 8.0 mg/dL BLOOD CULTURE Preliminary NO GROWTH AFTER 3 DAYS PE: GEN: NAD, eating breakfast LUNGS: room air HEART: RRR ABD: some distention - stable post paracentesis EXTREMITY: BLE edema NEURO/PSYCH: A & O �3 A/P: Alcoholic cirrhosis JERROD -- Cr to 1.5 on PO diuretics for ascites and BLE edema. Will review w/ Dr. Louis. VALERIA ALCOCER Jul 13, 2018 08:43
[2018-07-13] MEDS: LIDOCAINE (700MG/PATCH) PATCH. TD SCH (08:47)
[2018-07-13] MEDS: FUROSEMIDE 40 MG TABLET. PO SCH ×2 (08:47→13:49)
[2018-07-13] MEDS: SPIRONOLACTONE 25 MG TABLET PO SCH (08:47)
[2018-07-13] MEDS: rifAXIMin 550 MG TABLET PO SCH (08:47)
--- NOTE | 2018-07-13 09:02 | NUR ---
SW following pt for anticipated dc needs. Pt is well known to SW from previous visit. Pt lives at home with ex- and medicaid application is pending. No skilled needs indicated at this time. Pt was provided with resources on previous admission. SW will be available for other needs.
[2018-07-13 11:00] VITALS: BP 88/58
--- NOTE | 2018-07-13 13:04 | PDOC ---
PROGRESS NOTES Chief Complaint Chief Complaint CC: Abdominal swelling History of Present Illness History of Present Illness Patient seen and examined this morning. He was up and walking around his room. Discussed with patient that with an INR of 2, snf goals of care should be discussed. Patient said he denied palliative care a conversation yesterday. Vitals Vitals Vital Signs Date Time Temp Pulse Resp B/P (MAP) Pulse Ox O2 Delivery O2 Flow Rate FiO2 07/13/18 12:51 97 Room Air 07/13/18 11:00 97.6 87 18 88/58 (68) 97.6 Physical Exam General: Alert, Oriented X3, Cooperative, No acute distress Heart: Regular rate, Normal S1, Normal S2, No murmurs Lungs: Clear Abdomen: Normal bowel sounds, Soft Extremities: No clubbing, No cyanosis, Normal pulses, No tenderness/swelling, Other (1+ peripheral edema) Skin: No rashes, No breakdown, No significant lesion Labs LABS Laboratory Tests Test 07/12/18 14:10 Sodium Level 126 mmol/L (136-145) Potassium Level 4.6 mmol/L (3.5-5.1) Chloride Level 93 mmol/L (98-107) Carbon Dioxide Level 21 mmol/L (21-32) Anion Gap 12 (6-14) Blood Urea Nitrogen 15 mg/dL (8-26) Creatinine 1.5 mg/dL (0.7-1.3) Estimated GFR (Cockcroft-Gault) 48.6 Glucose Level 128 mg/dL (70-99) Calcium Level 8.0 mg/dL (8.5-10.1) Review of Systems Review of Systems Heart: denies chest pain Lung: denies soa Integument: denies rash Assessment and Plan Assessmemt and Plan Assessment: 1. Ascites Plan: 1. Labs 2. Home meds 3. Await GI input 4. PT/OT 5. Discharge disposition pending Comment Review of Relevant I have reviewed the following items arlette (where applicable) has been applied. Labs Laboratory Tests Test 07/12/18 14:10 Sodium Level 126 mmol/L (136-145) Potassium Level 4.6 mmol/L (3.5-5.1) Chloride Level 93 mmol/L (98-107) Carbon Dioxide Level 21 mmol/L (21-32) Anion Gap 12 (6-14) Blood Urea Nitrogen 15 mg/dL (8-26) Creatinine 1.5 mg/dL (0.7-1.3) Estimated GFR (Cockcroft-Gault) 48.6 Glucose Level 128 mg/dL (70-99) Calcium Level 8.0 mg/dL (8.5-10.1) Laboratory Tests Test 07/12/18 14:10 Sodium Level 126 mmol/L (136-145) Potassium Level 4.6 mmol/L (3.5-5.1) Chloride Level 93 mmol/L (98-107) Carbon Dioxide Level 21 mmol/L (21-32) Anion Gap 12 (6-14) Blood Urea Nitrogen 15 mg/dL (8-26) Creatinine 1.5 mg/dL (0.7-1.3) Estimated GFR (Cockcroft-Gault) 48.6 Glucose Level 128 mg/dL (70-99) Calcium Level 8.0 mg/dL (8.5-10.1) Microbiology 07/10/18 Blood Culture - Preliminary, Resulted NO GROWTH AFTER 3 DAYS Medications Current Medications Fentanyl Citrate (Fentanyl 2ml Vial) 50 mcg PRN Q15MIN PRN IV PAIN GREATER THAN 3/10 Last administered on 07/10/18at 13:54; Start 07/10/18 at 05:30; Stop at 05:29; Status DC Ondansetron HCl (Zofran) 4 mg 1X ONCE IV Last administered on 07/10/18at 05:42 ; Start 07/10/18 at 05:45; Stop 07/10/18 at 05:46; Status DC Aztreonam (Azactam) 1 gm 1X STAT IVP Last administered on 07/10/18at 08:21; Start 07/10/18 at 07:47; Stop 07/10/18 at 07:51; Status DC Spironolactone (Aldactone) 100 mg DAILY PO ; Start 07/10/18 at 14:00; Status Cancel Furosemide (Lasix) 40 mg BID92 PO Last administered on 07/13/18at 08:47; Start 07/10/18 at 14:00 Furosemide (Lasix) 40 mg BID94 PO ; Start 07/10/18 at 16:00; Status UNV Acetaminophen/ Hydrocodone Bitart (Lortab 5/325) 1 tab PRN Q4HRS PRN PO SEVERE PAIN Last administered on 07/13/18at 11:45; Start 07/10/18 at 13:15 Lactulose (Lactulose) 20 gm PRN TID PRN PO CONSTIPATION; Start 07/10/18 at 13: 15 Rifaximin (Xifaxan) 550 mg Q12HR PO Last administered on 07/13/18at 08:47; Start 07/10/18 at 14:00 Capsaicin (Zostrix) 1 juan PRN TID PRN TP ARTHRALGIA; Start 07/10/18 at 14:00 Lidocaine (Lidoderm) 1 patch DAILY TD Last administered on 07/10/18at 15:27; Start 07/10/18 at 14:00 Spironolactone (Aldactone) 100 mg DAILY PO Last administered on 07/13/18at 08:47 ; Start 07/10/18 at 14:00 Miscellaneous (Lidoderm Patch Removal) 1 ea QHS MC Last administered on at 21:00; Start 07/10/18 at 21:00 Tizanidine HCl (Zanaflex) 2 mg PRN Q8HRS PRN PO MUSCLE SPASMS Last administered on 07/13/18at 05:54; Start 07/10/18 at 21:45 Albumin Human 100 ml @ As Directed STK-MED ONCE IV ; Start 07/11/18 at 08:19; Stop 07/11/18 at 08:21; Status DC Albumin Human 100 ml @ 100 mls/hr 1X ONCE IV Last administered on 07/11/18at 08:30; Start 07/11/18 at 08:30; Stop 07/11/18 at 09:29; Status DC Albumin Human 100 ml @ 100 mls/hr 1X ONCE IV Last administered on 07/11/18at 10:13; Start 07/11/18 at 10:00; Stop 07/11/18 at 10:59; Status DC Active Scripts Active Capsaicin 60 Gm Cream..g. 1 Juan TP TID 14 Days Lidocaine 1 Each Adh..patch 1 Patch TD DAILY 14 Days Hydrocodone-Apap 5-325 (Hydrocodone Bit/Acetaminophen) 1 Tab Tablet 1 Tab PO PRN Q4HRS PRN Xifaxan (Rifaximin) 550 Mg Tablet 550 Mg PO Q12HR MDD 1 10 Days Furosemide 40 Mg Tablet 40 Mg PO BID94 30 Days Lactulose 20 Gm/30 Ml Solution 20 Gm PO TID PRN 30 Days Aldactone (Spironolactone) 25 Mg Tablet 100 Mg PO DAILY 30 Days Vitals/I & O Vital Sign - Last 24 Hours 07/12/18 07/12/18 07/12/18 07/12/18 13:05 15:16 19:00 20:00 Temp 97.5 97.3 97.5 97.3 Pulse 86 81 Resp 18 17 B/P (MAP) 82/56 (65) 85/57 (66) Pulse Ox 98 96 93 O2 Delivery Room Air Room Air Room Air Room Air 07/12/18 07/12/18 07/13/18 07/13/18 20:35 22:37 01:15 02:15 Temp 97.3 97.3 Pulse 81 Resp 18 17 18 B/P (MAP) 90/63 (72) Pulse Ox 93 93 93 O2 Delivery Room Air Room Air Room Air 07/13/18 07/13/18 07/13/18 07/13/18 02:41 05:55 07:00 08:00 Temp 97.3 97.5 97.3 97.5 Pulse 87 80 Resp 17 18 18 B/P (MAP) 89/61 (70) 72/46 (55) Pulse Ox 97 97 96 O2 Delivery Room Air Room Air Room Air Room Air 07/13/18 07/13/18 07/13/18 11:00 11:45 12:51 Temp 97.6 97.6 Pulse 87 Resp 18 B/P (MAP) 88/58 (68) Pulse Ox 97 97 97 O2 Delivery Room Air Room Air Room Air Intake and Output 07/12/18 07/12/18 07/13/18 15:01 23:01 07:01 Intake Total 250 ml 600 ml Balance 250 ml 600 ml HEYDI LANGFORD III DO Jul 13, 2018 13:04
[2018-07-13 15:59] VITALS: BP 89/61
--- NOTE | 2018-07-13 19:25 | NUR ---
Patient DC'd in stable condition with family. Escorted to car per wheelchair.
[2018-07-19] MEDS ORDERED: TRAM50TA PO (20:19)
--- NOTE | 2018-08-03 12:16 | DS ---
DATE OF DISCHARGE: 07/13/2018 ADMISSION DIAGNOSES: End-stage liver disease with ascites and history of alcohol issues. DISCHARGE DIAGNOSES: Resolving ascites and chronic end-stage liver disease. HOSPITAL COURSE: The patient is a pleasant 57-year-old male well known to our service. He used to drink a lot. He may still drink, I am not quite clear on that but nevertheless, he has got end-stage liver disease. He is swallowing. His belly is quite large. He has a lot of ascites. His INR is high. We admitted the patient. We tapped him a couple times over the next few days. We got him feel better and would like to get home with home to quit drinking. DISCHARGE DISPOSITION: Home. ACTIVITY: As tolerated. DIET: Low sodium. MEDICATIONS: Please see the MRAD. TOTAL TIME: Thirty-six minutes. HEYDI LANGFORD DO DR: NARESH/german JOB#: [id number] / [id number]
[2018-08-08] MEDS ORDERED: FURO-69 PO (12:10)
[2018-08-08] MEDS ORDERED: SPIR25TA PO (12:10)
[2018-08-08] MEDS ORDERED: TRAM50TA PO (12:10)
[2018-08-20] MEDS ORDERED: RIFA550T4 PO (09:53)
[2018-08-20] MEDS ORDERED: FURO-68 PO (09:53)
[2018-08-20] MEDS ORDERED: SPIR25TA PO (09:53)
== END 2018-07-13 19:30 | disposition home or self-care (01) | DRG 433 ==
LOC: ER 04:33 → 6 SOUTH 07:30
PROVIDERS: ADMIT Internal Medicine; ATTEND Internal Medicine
PROC: 0W9G3ZZ Drainage of Peritoneal Cavity, Percutaneous Approach (ICD-10-PCS; principal; 2018-07-11)
DX: K70.31 Alcoholic cirrhosis of liver with ascites (principal); D68.9 Coagulation defect, unspecified; E87.1 Hypo-osmolality and hyponatremia; N17.9 Acute kidney failure, unspecified; D64.9 Anemia, unspecified; K80.20 Calculus of gallbladder without cholecystitis without obstruction; D69.59 Other secondary thrombocytopenia; F10.20 Alcohol dependence, uncomplicated; J45.909 Unspecified asthma, uncomplicated; K59.00 Constipation, unspecified; Z82.49 Family history of ischemic heart disease and other diseases of the circulatory system; Z88.1 Allergy status to other antibiotic agents; Z88.0 Allergy status to penicillin; Z88.7 Allergy status to serum and vaccine
CPT/HCPCS: 36415; 49083; 71045; 76700; 80048; 80053; 80076; 83605; 83690; 85025; 85610; 85730; 86850; 86900; 86901; 87040; J2405; J3010; J3490; P9046; 99285-25; G0378

== ENCOUNTER 2018-08-15 19:09 | Inpatient (IN) | payer OTHER ==
[~2018-08-15] VITALS: Ht 172.7 cm; Wt 92.6 kg
[~2018-08-15 19:09] MED LIST changes: +FURO-69 PO; -LIDO700A21 TD; +LIDO700A39 TD; +TRAM50TA PO
[2018-08-15 20:32] LABS: BASO % 1 % (0-3); EOS # 0.1 x10^3/uL (0.0-0.7); EOS % 2 % (0-3); HEMATOCRIT 26.8 % (39.0-53.0); HEMOGLOBIN 8.8 g/dL (13.0-17.5); LYMPH # 1.7 x10^3/uL (1.0-4.8); LYMPH % 23 % (24-48); MEAN CORPUSCULAR HEMOGLOBIN 30 pg (25-35); MEAN CORPUSCULAR HGB CONC 33 g/dL (31-37); MEAN CORPUSCULAR VOLUME 93 fL (79-100); MONO # 0.8 x10^3/uL (0.0-1.1); MONO % 11 % (0-9); NEUT # 4.6 x10^3uL (1.8-7.7); NEUT % 64 % (31-73); PLATELET COUNT 146 x10^3/uL (140-400); RED CELL DISTRIBUTION WIDTH 16.3 % (11.5-14.5); WHITE BLOOD COUNT 7.3 x10^3/uL (4.0-11.0)
[2018-08-15 20:42] LABS: PROTHROMBIN TIME PATIENT 19.1 SEC (11.7-14.0)
[2018-08-15 20:51] LABS: CALCIUM 8.6 mg/dL (8.5-10.1); GFR 77.3; POTASSIUM 4.9 mmol/L (3.5-5.1)
--- NOTE | 2018-08-15 20:53 | PHYS DOC ---
Past Medical History Past Medical History: Asthma, Liver Disease, Other Additional Past Medical Histor: CELLULITIS,BORDERLINE HTN, ASCITES Past Surgical History: Other Additional Past Surgical Histo: L WRIST ORIF,L KNEE, ABD TAPPED Alcohol Use: Sober Drug Use: None Adult General Chief Complaint Chief Complaint: ABDOMINAL PAIN HPI HPI Patient is a 58 year old male who presents with abdominal pain SHARP DIFFUSE WORSE IN RUQ and distention with associated shortness of breath. Endorses vomiting x1 today without hematemesis. Denies fever, chills, or bloody stool. Patient was recently admitted for paracentesis. Reports his last drink reported was 4 months ago. Review of Systems Review of Systems Constitutional: Denies fever or chills [] Eyes: Denies change in visual acuity, redness, or eye pain [] HENT: Denies nasal congestion or sore throat [] Respiratory: Endorses shortness of breath, denies cough [] Cardiovascular: No additional information not addressed in HPI [] GI: Endorses diffuse abdominal pain and vomiting, denies nausea, bloody stools or diarrhea [] : Denies dysuria or hematuria [] Musculoskeletal: Denies back pain or joint pain [] Integument: Denies rash or skin lesions [] Neurologic: Denies headache, focal weakness or sensory changes [] Endocrine: Denies polyuria or polydipsia [] All other systems were reviewed and found to be within normal limits, except as documented in this note. Current Medications Current Medications Current Medications Medications (Trade) Dose Ordered Sig/Marc Start Time Stop Time Status Last Admin Dose Admin Aztreonam (Azactam) 2 gm Q8HRS 08/15/18 22:00 Morphine Sulfate (Morphine Sulfate) 4 mg PRN Q2HR PRN 08/15/18 21:45 08/16/18 21:44 Sodium Chloride 500 ml @ 500 mls/hr 1X ONCE 08/15/18 21:00 08/15/18 21:59 DC 08/15/18 20:59 500 MLS/HR Allergies Allergies Allergies Coded Allergies Type Severity Reaction Last Updated Verified Penicillins Allergy Severe ANPHYLAXIS 05/30/18 Yes trovafloxacin Allergy Severe Anaphylaxis 05/30/18 Yes Influenza Virus Vaccines Allergy Intermediate 06/16/18 Yes Physical Exam Physical Exam Constitutional: Well developed, mild acute distress, non-toxic appearance. [] HENT: Normocephalic, atraumatic, bilateral external ears normal, oropharynx moist, no oral exudates, nose normal. [] Eyes: PERRLA, EOMI, conjunctiva normal, no discharge. [] Neck: Normal range of motion, no tenderness, supple, no stridor. [] CardiovasculaTACHYCARDIC NO DEF MURMUR Lungs & Thorax: Bilateral breath sounds clear to auscultation [] Abdomen: Diffuse distention with tenderness, bowel sounds normal, no pulsatile masses, no caput medusa. [] Skin: Warm, dry, ecchymosis and eczematous patches on bilateral upper extremities no erythema. [] Back: No tenderness, no CVA tenderness. [] Extremities: No tenderness, no cyanosis, no clubbing, ROM intact, mild lower extremity edema. [] Neurologic: Alert and oriented X 3, normal motor function, normal sensory function, no focal deficits noted. [] Psychologic: Affect normal, judgement normal, mood normal. [] Current Patient Data Vital Signs Vital Signs Date Time Temp Pulse Resp B/P (MAP) Pulse Ox O2 Delivery O2 Flow Rate FiO2 08/15/18 20:56 18 97 Room Air 08/15/18 19:16 98.0 128 114/64 (81) 98.0 Lab Values Laboratory Tests Test 08/15/18 19:38 08/15/18 21:03 White Blood Count 7.3 x10^3/uL (4.0-11.0) Red Blood Count 2.90 x10^6/uL (4.30-5.70) L Hemoglobin 8.8 g/dL (13.0-17.5) L Hematocrit 26.8 % (39.0-53.0) L Mean Corpuscular Volume 93 fL (79-100) Mean Corpuscular Hemoglobin 30 pg (25-35) Mean Corpuscular Hemoglobin Concent 33 g/dL (31-37) Red Cell Distribution Width 16.3 % (11.5-14.5) H Platelet Count 146 x10^3/uL (140-400) Neutrophils (%) (Auto) 64 % (31-73) Lymphocytes (%) (Auto) 23 % (24-48) L Monocytes (%) (Auto) 11 % (0-9) H Eosinophils (%) (Auto) 2 % (0-3) Basophils (%) (Auto) 1 % (0-3) Neutrophils # (Auto) 4.6 x10^3uL (1.8-7.7) Lymphocytes # (Auto) 1.7 x10^3/uL (1.0-4.8) Monocytes # (Auto) 0.8 x10^3/uL (0.0-1.1) Eosinophils # (Auto) 0.1 x10^3/uL (0.0-0.7) Basophils # (Auto) 0.0 x10^3/uL (0.0-0.2) Prothrombin Time 19.1 SEC (11.7-14.0) H Prothrombin Time INR 1.6 (0.8-1.1) H Sodium Level 126 mmol/L (136-145) L Potassium Level 4.9 mmol/L (3.5-5.1) Chloride Level 94 mmol/L (98-107) L Carbon Dioxide Level 21 mmol/L (21-32) Anion Gap 11 (6-14) Blood Urea Nitrogen 21 mg/dL (8-26) Creatinine 1.0 mg/dL (0.7-1.3) Estimated GFR (Cockcroft-Gault) 77.3 BUN/Creatinine Ratio 21 (6-20) H Glucose Level 102 mg/dL (70-99) H Calcium Level 8.6 mg/dL (8.5-10.1) Magnesium Level 1.5 mg/dL (1.8-2.4) L Total Bilirubin 2.4 mg/dL (0.2-1.0) H Aspartate Amino Transferase (AST) 56 U/L (15-37) H Alanine Aminotransferase (ALT) 22 U/L (16-63) Alkaline Phosphatase 189 U/L (46-116) H Troponin I Quantitative 0.029 ng/mL (0.000-0.055) MW-Qgm-S-Type Natriuretic Peptide 114 pg/mL (0-124) Total Protein 7.8 g/dL (6.4-8.2) Albumin 1.7 g/dL (3.4-5.0) L Albumin/Globulin Ratio 0.3 (1.0-1.7) L Lipase 855 U/L (73-393) H Ethyl Alcohol Level 15 mg/dL (0-10) H Urine Collection Type Unknown Urine Color Milagros Urine Clarity Clear Urine pH 5.0 Urine Specific [place] 1.015 Urine Protein Negative mg/dL (NEG-TRACE) Urine Glucose (UA) Negative mg/dL (NEG) Urine Ketones (Stick) Negative mg/dL (NEG) Urine Blood Large (NEG) Urine Nitrite Negative (NEG) Urine Bilirubin Small (NEG) Urine Urobilinogen Dipstick 1.0 mg/dL (0.2 mg/dL) Urine Leukocyte Esterase Moderate (NEG) Urine RBC 11-20 /HPF (0-2) Urine WBC 11-20 /HPF (0-4) Urine Squamous Epithelial Cells Few /LPF Urine Bacteria Few /HPF (0-FEW) Urine Hyaline Casts Many /HPF Urine Mucus Mod /LPF Urine Opiates Screen Neg (NEG) Urine Methadone Screen Neg (NEG) Urine Barbiturates Neg (NEG) Urine Phencyclidine Screen Neg (NEG) Urine Amphetamine/Methamphetamine Neg (NEG) Urine Benzodiazepines Screen Neg (NEG) Urine Cocaine Screen Neg (NEG) Urine Cannabinoids Screen Neg (NEG) Urine Ethyl Alcohol Pos (NEG) Laboratory Tests 08/15/18 19:38 Laboratory Tests 08/15/18 19:38 EKG EKG Sinus tachycardia, HR 124, no ST segment changes[] Radiology/Procedures Radiology/Procedures [] Impressions: Poor inspiration but no definite pneumonia was seen Course & Med Decision Making Course & Med Decision Making Pt is a 58 year old male with past medical history of liver cirrhosis and alcohol use disorder presents with diffuse abdominal pain and bloating most consistent with ascites. Afebrile with recent negative thoracentesis cultures. Plan to admit for thoracentesis. Pertinent Labs and Imaging studies reviewed. (See chart for details) Plan: EKG CXR CBC, CMP, Coags, Troponin, BNP UDS FINAL PLAN TACHYCARDIA WITH NORMAL BP COULD BE VOLUME DOWN INTRAVASCULARLY, ALBUMIN LOW. UTI NOTED, CX/LACTATE/AZTREONAM ORDERED. D/W PERCY PLAN TO ADMIT FOR ABX, AND PROBABLE PARACENTESIS. [] Dragon Disclaimer Dragon Disclaimer This electronic medical record was generated, in whole or in part, using a voice recognition dictation system. Departure Departure Impression: Primary Impression: Ascites Additional Impression: UTI (urinary tract infection) Disposition: 09 ADMITTED INPATIENT Admitting Physician: Dayan Driscoll Condition: STABLE Referrals: NO PCP (PCP) Problem Qualifiers KEVIN FLORES MD Aug 15, 2018 20:53
[2018-08-15 20:57] LABS: ALBUMIN 1.7 g/dL (3.4-5.0); ALBUMIN/GLOBULIN RATIO 0.3 (1.0-1.7); MAGNESIUM 1.5 mg/dL (1.8-2.4); TOTAL BILIRUBIN 2.4 mg/dL (0.2-1.0); TOTAL PROTEIN 7.8 g/dL (6.4-8.2)
[2018-08-15] MEDS ORDERED: IV NORMAL SALINE 500ML BAG 500 ML IV ONE (21:00)
[2018-08-15] MEDS ORDERED: MORPHINE SULFATE 4 MG/ML VIAL. IV ONE (21:00)
[2018-08-15 21:15] LABS: BILIRUBIN,URINE SMALL (NEG); CLARITY,URINE CLEAR; COLOR,URINE AMBER; NITRITE,URINE NEGATIVE (NEG); PROTEIN,URINE NEGATIVE (NEG-TRACE)
[2018-08-15 21:20] LABS: BARBITURATES NEG (NEG); BENZODIAZEPINES NEG (NEG); CANNABINOIDS NEG (NEG); COCAINE NEG (NEG); METHADONE NEG (NEG); OPIATES NEG (NEG); PHENCYCLIDINE NEG (NEG)
[2018-08-15 21:27] LABS: AMPHETAMINE/METHAMPHETAMINE NEG (NEG); BACTERIA,URINE FEW /HPF (0-FEW); HYALINE CASTS, URINE MANY /HPF; SQUAMOUS EPITHELIAL CELL,UR FEW /LPF
[2018-08-15] MEDS: MORPHINE SULFATE 4 MG/ML VIAL. IV PRN (22:14)
[2018-08-15] MEDS: AZTREONAM IV Push 2 GM VIAL. IVP SCH (22:17)
[2018-08-15 23:00] VITALS: BP 104/70
[2018-08-15] MEDS ORDERED: IV NORMAL SALINE 1000ML BAG 1,000 ML IV ONE (23:00)
--- NOTE | 2018-08-15 23:02 | RAD ---
AP portable chest radiograph 08/15/2018 Clinical History: Shortness of breath. An AP erect portable digital radiograph of the chest was obtained. Comparison study is dated 07/18/2018. The degree of inspiration is shallow. The cardiac silhouette is borderline enlarged. The thoracic aorta is mildly tortuous. No area of consolidation is seen. No pneumothorax or pleural effusion is noted. The osseous structures are unchanged. Impression: No area of consolidation is seen. Electronically signed by: Carrington Gongora MD (08/15/2018 10:59 PM) [employer]
--- NOTE | 2018-08-15 23:10 | NUR ---
The patient, MARQUISE BARKER, 58 y/o, M admitted by AAMIR GREER MD, was given written information regarding hospital policies, unit procedures and contact persons. Valuables were checked and all questions answered. Wounds photographed and consult placed. Will continue to monitor.
[2018-08-16] MEDS: MORPHINE SULFATE 4 MG/ML VIAL. IV PRN ×6 (00:49→21:45)
[2018-08-16] MEDS ORDERED: C.DIFF MED SCREEN BY RX. MC ONE (01:00)
[2018-08-16 03:00] VITALS: BP 96/55
[2018-08-16] MEDS: AZTREONAM IV Push 2 GM VIAL. IVP SCH (05:32)
[2018-08-16 07:15] VITALS: BP 99/68
--- NOTE | 2018-08-16 07:26 | EKG ---
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
--- NOTE | 2018-08-16 10:02 | PDOC ---
Subjective: Subjective: Frequent admissions since 04/2018 - please see past GI consults/notes. Back again w/ abd distention/discomfort, BLE swelling, some SOA. Says he's gained 10 pounds. I reviewed the pills he brought - taking Lasix 20mg QD and Aldactone 25mg 2 pills QD. No lactulose, etc. +alcohol this time - he denies. "I just drink NA beer sometimes." Objective: Vital Signs: Vital Signs Date Time Temp Pulse Resp B/P (MAP) Pulse Ox O2 Delivery O2 Flow Rate FiO2 08/16/18 07:15 98.4 110 18 99/68 (78) 95 Room Air 98.4 Labs: Laboratory Tests Test 08/15/18 19:38 08/15/18 21:03 08/16/18 02:45 White Blood Count 7.3 x10^3/uL Red Blood Count 2.90 x10^6/uL Hemoglobin 8.8 g/dL Hematocrit 26.8 % Mean Corpuscular Volume 93 fL Mean Corpuscular Hemoglobin 30 pg Mean Corpuscular Hemoglobin Concent 33 g/dL Red Cell Distribution Width 16.3 % Platelet Count 146 x10^3/uL Neutrophils (%) (Auto) 64 % Lymphocytes (%) (Auto) 23 % Monocytes (%) (Auto) 11 % Eosinophils (%) (Auto) 2 % Basophils (%) (Auto) 1 % Neutrophils # (Auto) 4.6 x10^3uL Lymphocytes # (Auto) 1.7 x10^3/uL Monocytes # (Auto) 0.8 x10^3/uL Eosinophils # (Auto) 0.1 x10^3/uL Basophils # (Auto) 0.0 x10^3/uL Prothrombin Time 19.1 SEC Prothromb Time International Ratio 1.6 Sodium Level 126 mmol/L Potassium Level 4.9 mmol/L Chloride Level 94 mmol/L Carbon Dioxide Level 21 mmol/L Anion Gap 11 Blood Urea Nitrogen 21 mg/dL Creatinine 1.0 mg/dL Estimated GFR (Cockcroft-Gault) 77.3 BUN/Creatinine Ratio 21 Glucose Level 102 mg/dL Lactic Acid Level 4.0 mmol/L 1.9 mmol/L Calcium Level 8.6 mg/dL Magnesium Level 1.5 mg/dL Total Bilirubin 2.4 mg/dL Aspartate Amino Transf (AST/SGOT) 56 U/L Alanine Aminotransferase (ALT/SGPT) 22 U/L Alkaline Phosphatase 189 U/L Troponin I Quantitative 0.029 ng/mL MG-Rqe-B-Type Natriuretic Peptide 114 pg/mL Total Protein 7.8 g/dL Albumin 1.7 g/dL Albumin/Globulin Ratio 0.3 Lipase 855 U/L Ethyl Alcohol Level 15 mg/dL Urine Collection Type Unknown Urine Color Milagros Urine Clarity Clear Urine pH 5.0 Urine Specific [place] 1.015 Urine Protein Negative mg/dL Urine Glucose (UA) Negative mg/dL Urine Ketones (Stick) Negative mg/dL Urine Blood Large Urine Nitrite Negative Urine Bilirubin Small Urine Urobilinogen Dipstick 1.0 mg/dL Urine Leukocyte Esterase Moderate Urine RBC 11-20 /HPF Urine WBC 11-20 /HPF Urine Squamous Epithelial Cells Few /LPF Urine Bacteria Few /HPF Urine Hyaline Casts Many /HPF Urine Mucus Mod /LPF Urine Opiates Screen Neg Urine Methadone Screen Neg Urine Barbiturates Neg Urine Phencyclidine Screen Neg Urine Amphetamine/Methamphetamine Neg Urine Benzodiazepines Screen Neg Urine Cocaine Screen Neg Urine Cannabinoids Screen Neg Urine Ethyl Alcohol Pos Imaging: CXR 08/15/18 Impression: No area of consolidation is seen. PE: GEN: NAD, walking around room - has at least three bags of clothes and belongings with him LUNGS: room air HEART: tachycardic ABD: tight/distended EXTREMITY: BLE pitting edema NEURO/PSYCH: A & O 3 A/P: ESLD - alcohol, still drinking ?UTI -- MELD 24. Frequent admissions/need for paracentesis, non-compliant, has refused palliative discussion in the past. Now apparently has insurance. Will ask for paracentesis, resume diuretics and lactulose and Xifaxan, resume fluid and sodium restriction. VALERIA ALCOCER Aug 16, 2018 10:02
--- NOTE | 2018-08-16 10:32 | PDOC1 ---
History and Physical Date of Admission Date of Admission DATE: 08/16/18 TIME: 10:31 Identification/Chief Complaint Chief Complaint abd pain and swelling Source Source: Chart review, Patient History of Present Illness History of Present Illness admit from ER with acute on chronic abd pain, pain 01/04, now better Frequent admissions since 04/2018 - I have seem him before a few months ago, very similar presentation with abd pain and swelling EtOH pos in serum, Back again w/ abd distention/discomfort, BLE swelling, some SOA. Says he's gained 10 pounds. he reports to be compliant with meds Past Medical History Cardiovascular: No pertinent hx Pulmonary: No pertinent hx GI: GERD, Peptic Ulcer disease Heme/Onc: Anemia NOS Hepatobiliary: Cirrhosis, Other Musculoskeletal: low back pain Past Surgical History Past Surgical History: Total knee replacement, Other Family History Family History: Hypertension Social History Smoke: No ALCOHOL: none Drugs: None Current Problem List Problem List Problems Medical Problems: (1) Ascites Status: Acute Current Medications Current Medications Current Medications Morphine Sulfate (Morphine Sulfate) 4 mg 1X ONCE IV Last administered on at 20:56; Start 08/15/18 at 21:00; Stop 08/15/18 at 21:01; Status DC Sodium Chloride 500 ml @ 500 mls/hr 1X ONCE IV Last administered on at 20:59; Start 08/15/18 at 21:00; Stop 08/15/18 at 21:59; Status DC Aztreonam (Azactam) 2 gm Q8HRS IVP Last administered on 08/16/18at 05:32; Start 08/15/18 at 22:00 Morphine Sulfate (Morphine Sulfate) 4 mg PRN Q2HR PRN IV SEVERE PAIN Last administered on 08/16/18at 10:06; Start 08/15/18 at 21:45; Stop 08/16/18 at 21:44 Sodium Chloride 1,000 ml @ 1,000 mls/hr 1X ONCE IV Last administered on at 22:51; Start 08/15/18 at 23:00; Stop 08/15/18 at 23:59; Status DC Pharmacy Consult (C.diff Med Screen By Rx) 1 each 1X ONCE [facility] Last administered on 08/16/18at 01:00; Start 08/16/18 at 01:00; Stop 08/16/18 at 01:01 ; Status DC Furosemide (Lasix) 40 mg DAILY PO ; Start 08/16/18 at 11:00 Spironolactone (Aldactone) 100 mg DAILY PO ; Start 08/16/18 at 11:00 Lactulose (Lactulose) 20 gm BID PO ; Start 08/16/18 at 11:00 Rifaximin (Xifaxan) 550 mg Q12HR PO ; Start 08/16/18 at 11:00 Active Scripts Active Lasix (Furosemide) 20 Mg Tablet 1 Tab PO DAILY Tramadol Hcl 50 Mg Tablet 50 Mg PO Q6HRS PRN 7 Days Aldactone (Spironolactone) 25 Mg Tablet 50 Mg PO DAILY 30 Days Allergies Allergies: Coded Allergies: Penicillins (Verified Allergy, Severe, ANPHYLAXIS, 05/30/18) trovafloxacin (Verified Allergy, Severe, Anaphylaxis, 05/30/18) Anaphylactic Influenza Virus Vaccines (Verified Allergy, Intermediate, 06/16/18) ROS General: No: Chills, Night Sweats, Fatigue, Malaise, Appetite, Other PSYCHOLOGICAL ROS: No: Anxiety, Behavioral Disorder, Concentration difficultie , Decreased libido, Depression, Disorientation, Hallucinations, Hostility, Irritablity, Memory difficulties, Mood Swings, Obsessive thoughts, Physical abuse, Sexual abuse, Sleep disturbances, Suicidal ideation, Other Eyes: No Blurry vision, No Decreased vision, No Double vision, No Dry eyes, No Excessive tearing, No Eye Pain, No Itchy Eyes, No Loss of vision, No Photophobia , No Scotomata, No Uses contacts, No Uses glasses, No Other HEENT: No: Heacaches, Visual Changes, Hearing change, Nasal congestion, Nasal discharge, Oral lesions, Sinus pain, Sore Throat, Epistaxis, Sneezing, Snoring, Tinnitus, Vertigo, Vocal changes, Other Respiratory: No: Cough, Hemoptysis, Orthopnea, Pleuritic Pain, Shortness of breath, SOB with excertion, Sputum Changes, Stridor, Tachypnea, Wheezing, Other Cardiovascular: No Chest Pain, No Palpitations, No Orthopnea, No Paroxysmal Noc. Dyspnea, No Edema, No Lt Headedness, No Other Gastrointestinal: Yes Nausea; No Vomiting, No Abdominal Pain, No Diarrhea, No Constipation, No Melena, No Hematochezia, No Other Genitourinary: No Dysuria, No Frequency, No Incontinence, No Hematuria, No Retention, No Discharge, No Urgency, No Pain, No Flank Pain, No Other, No , No , No , No , No , No , No Musculoskeletal: No Gait Disturbance, No Joint Pain, No Joint Stiffness, No Joint Swelling, No Muscle Pain, No Muscular Weakness, No Pain In:, No Swelling In:, No Other Neurological: No Behavorial Changes, No Bowel/Bladder ControlChng, No Confusion , No Dizziness, No Gait Disturbance, No Headaches, No Impaired Coord/balance, No Memory Loss, No Numbness/Tingling, No Seizures, No Speech Problems, No Tremors, No Visual Changes, No Weakness, No Other Skin: No Dry Skin, No Eczema, No Hair Changes, No Lumps, No Mole Changes, No Mottling, No Nail Changes, No Pruritus, No Rash, No Skin Lesion Changes, No Other, No Acne Physical Exam General: Alert, Cooperative, No acute distress HEENT: PERRLA, EOMI, Mucous membr. moist/pink Lungs: Clear to auscultation Heart: no gallops, no murmurs Abdomen: Normal bowel sounds, Soft (very swollen, distended, fluid wave) Rectal Exam: not examined Extremities: No cyanosis, No edema, Normal pulses Skin: No rashes, No breakdown, No significant lesion Neuro: Strength at 5/5 X4 ext, Normal tone, Sensation intact Psych/Mental Status: Mental status NL, Mood NL Vitals Vitals Vital Signs Date Time Temp Pulse Resp B/P (MAP) Pulse Ox O2 Delivery O2 Flow Rate FiO2 08/16/18 10:06 20 95 Room Air 08/16/18 07:15 98.4 110 99/68 (78) 98.4 Labs Labs Laboratory Tests Test 08/15/18 19:38 08/15/18 21:03 08/16/18 02:45 White Blood Count 7.3 x10^3/uL (4.0-11.0) Red Blood Count 2.90 x10^6/uL (4.30-5.70) Hemoglobin 8.8 g/dL (13.0-17.5) Hematocrit 26.8 % (39.0-53.0) Mean Corpuscular Volume 93 fL (79-100) Mean Corpuscular Hemoglobin 30 pg (25-35) Mean Corpuscular Hemoglobin Concent 33 g/dL (31-37) Red Cell Distribution Width 16.3 % (11.5-14.5) Platelet Count 146 x10^3/uL (140-400) Neutrophils (%) (Auto) 64 % (31-73) Lymphocytes (%) (Auto) 23 % (24-48) Monocytes (%) (Auto) 11 % (0-9) Eosinophils (%) (Auto) 2 % (0-3) Basophils (%) (Auto) 1 % (0-3) Neutrophils # (Auto) 4.6 x10^3uL (1.8-7.7) Lymphocytes # (Auto) 1.7 x10^3/uL (1.0-4.8) Monocytes # (Auto) 0.8 x10^3/uL (0.0-1.1) Eosinophils # (Auto) 0.1 x10^3/uL (0.0-0.7) Basophils # (Auto) 0.0 x10^3/uL (0.0-0.2) Prothrombin Time 19.1 SEC (11.7-14.0) Prothromb Time International Ratio 1.6 (0.8-1.1) Sodium Level 126 mmol/L (136-145) Potassium Level 4.9 mmol/L (3.5-5.1) Chloride Level 94 mmol/L (98-107) Carbon Dioxide Level 21 mmol/L (21-32) Anion Gap 11 (6-14) Blood Urea Nitrogen 21 mg/dL (8-26) Creatinine 1.0 mg/dL (0.7-1.3) Estimated GFR (Cockcroft-Gault) 77.3 BUN/Creatinine Ratio 21 (6-20) Glucose Level 102 mg/dL (70-99) Lactic Acid Level 4.0 mmol/L (0.4-2.0) 1.9 mmol/L (0.4-2.0) Calcium Level 8.6 mg/dL (8.5-10.1) Magnesium Level 1.5 mg/dL (1.8-2.4) Total Bilirubin 2.4 mg/dL (0.2-1.0) Aspartate Amino Transf (AST/SGOT) 56 U/L (15-37) Alanine Aminotransferase (ALT/SGPT) 22 U/L (16-63) Alkaline Phosphatase 189 U/L (46-116) Troponin I Quantitative 0.029 ng/mL (0.000-0.055) FI-Kyd-W-Type Natriuretic Peptide 114 pg/mL (0-124) Total Protein 7.8 g/dL (6.4-8.2) Albumin 1.7 g/dL (3.4-5.0) Albumin/Globulin Ratio 0.3 (1.0-1.7) Lipase 855 U/L (73-393) Ethyl Alcohol Level 15 mg/dL (0-10) Urine Collection Type Unknown Urine Color Milagros Urine Clarity Clear Urine pH 5.0 Urine Specific [place] 1.015 Urine Protein Negative mg/dL (NEG-TRACE) Urine Glucose (UA) Negative mg/dL (NEG) Urine Ketones (Stick) Negative mg/dL (NEG) Urine Blood Large (NEG) Urine Nitrite Negative (NEG) Urine Bilirubin Small (NEG) Urine Urobilinogen Dipstick 1.0 mg/dL (0.2 mg/dL) Urine Leukocyte Esterase Moderate (NEG) Urine RBC 11-20 /HPF (0-2) Urine WBC 11-20 /HPF (0-4) Urine Squamous Epithelial Cells Few /LPF Urine Bacteria Few /HPF (0-FEW) Urine Hyaline Casts Many /HPF Urine Mucus Mod /LPF Urine Opiates Screen Neg (NEG) Urine Methadone Screen Neg (NEG) Urine Barbiturates Neg (NEG) Urine Phencyclidine Screen Neg (NEG) Urine Amphetamine/Methamphetamine Neg (NEG) Urine Benzodiazepines Screen Neg (NEG) Urine Cocaine Screen Neg (NEG) Urine Cannabinoids Screen Neg (NEG) Urine Ethyl Alcohol Pos (NEG) Laboratory Tests Test 08/15/18 19:38 08/15/18 21:03 08/16/18 02:45 White Blood Count 7.3 x10^3/uL (4.0-11.0) Red Blood Count 2.90 x10^6/uL (4.30-5.70) Hemoglobin 8.8 g/dL (13.0-17.5) Hematocrit 26.8 % (39.0-53.0) Mean Corpuscular Volume 93 fL (79-100) Mean Corpuscular Hemoglobin 30 pg (25-35) Mean Corpuscular Hemoglobin Concent 33 g/dL (31-37) Red Cell Distribution Width 16.3 % (11.5-14.5) Platelet Count 146 x10^3/uL (140-400) Neutrophils (%) (Auto) 64 % (31-73) Lymphocytes (%) (Auto) 23 % (24-48) Monocytes (%) (Auto) 11 % (0-9) Eosinophils (%) (Auto) 2 % (0-3) Basophils (%) (Auto) 1 % (0-3) Neutrophils # (Auto) 4.6 x10^3uL (1.8-7.7) Lymphocytes # (Auto) 1.7 x10^3/uL (1.0-4.8) Monocytes # (Auto) 0.8 x10^3/uL (0.0-1.1) Eosinophils # (Auto) 0.1 x10^3/uL (0.0-0.7) Basophils # (Auto) 0.0 x10^3/uL (0.0-0.2) Prothrombin Time 19.1 SEC (11.7-14.0) Prothromb Time International Ratio 1.6 (0.8-1.1) Sodium Level 126 mmol/L (136-145) Potassium Level 4.9 mmol/L (3.5-5.1) Chloride Level 94 mmol/L (98-107) Carbon Dioxide Level 21 mmol/L (21-32) Anion Gap 11 (6-14) Blood Urea Nitrogen 21 mg/dL (8-26) Creatinine 1.0 mg/dL (0.7-1.3) Estimated GFR (Cockcroft-Gault) 77.3 BUN/Creatinine Ratio 21 (6-20) Glucose Level 102 mg/dL (70-99) Lactic Acid Level 4.0 mmol/L (0.4-2.0) 1.9 mmol/L (0.4-2.0) Calcium Level 8.6 mg/dL (8.5-10.1) Magnesium Level 1.5 mg/dL (1.8-2.4) Total Bilirubin 2.4 mg/dL (0.2-1.0) Aspartate Amino Transf (AST/SGOT) 56 U/L (15-37) Alanine Aminotransferase (ALT/SGPT) 22 U/L (16-63) Alkaline Phosphatase 189 U/L (46-116) Troponin I Quantitative 0.029 ng/mL (0.000-0.055) ZL-Zxz-F-Type Natriuretic Peptide 114 pg/mL (0-124) Total Protein 7.8 g/dL (6.4-8.2) Albumin 1.7 g/dL (3.4-5.0) Albumin/Globulin Ratio 0.3 (1.0-1.7) Lipase 855 U/L (73-393) Ethyl Alcohol Level 15 mg/dL (0-10) Urine Collection Type Unknown Urine Color Milagros Urine Clarity Clear Urine pH 5.0 Urine Specific [place] 1.015 Urine Protein Negative mg/dL (NEG-TRACE) Urine Glucose (UA) Negative mg/dL (NEG) Urine Ketones (Stick) Negative mg/dL (NEG) Urine Blood Large (NEG) Urine Nitrite Negative (NEG) Urine Bilirubin Small (NEG) Urine Urobilinogen Dipstick 1.0 mg/dL (0.2 mg/dL) Urine Leukocyte Esterase Moderate (NEG) Urine RBC 11-20 /HPF (0-2) Urine WBC 11-20 /HPF (0-4) Urine Squamous Epithelial Cells Few /LPF Urine Bacteria Few /HPF (0-FEW) Urine Hyaline Casts Many /HPF Urine Mucus Mod /LPF Urine Opiates Screen Neg (NEG) Urine Methadone Screen Neg (NEG) Urine Barbiturates Neg (NEG) Urine Phencyclidine Screen Neg (NEG) Urine Amphetamine/Methamphetamine Neg (NEG) Urine Benzodiazepines Screen Neg (NEG) Urine Cocaine Screen Neg (NEG) Urine Cannabinoids Screen Neg (NEG) Urine Ethyl Alcohol Pos (NEG) VTE Prophylaxis Ordered VTE Prophylaxis Devices: Yes VTE Pharmacological Prophylaxi: No Assessment/Plan Assessment/Plan ESLD EtOH ism, he denies still drinking hyponatremia severe malnutrition, but obese by BMI, probably 30 lbs of fluid anemia of chronic disease acute on chronic pancreatitis we have tried to have him consider hospice before, still full code, wants paracentesis, he does not understand the parameters of his disease well, AAMIR GREER MD Aug 16, 2018 10:32
[2018-08-16 11:41] VITALS: BP 108/80
[2018-08-16] MEDS: rifAXIMin 550 MG TABLET PO SCH ×2 (14:13→21:27)
[2018-08-16] MEDS: LACTULOSE 20 GM/30 ML SOLUTION. PO SCH ×2 (14:13→21:27)
[2018-08-16] MEDS: SPIRONOLACTONE 25 MG TABLET PO SCH (14:14)
[2018-08-16] MEDS: FUROSEMIDE 40 MG TABLET. PO SCH (14:14)
[2018-08-16] MEDS: AZTREONAM IV Push 1 GM VIAL. IVP SCH ×2 (14:51→21:28)
--- NOTE | 2018-08-16 14:53 | NUR ---
Wound care: Patient seen per wound care consult for multiple skin tears. See wound assessment. Patient is well known to us from previous admissions. Dressings removed and wounds cleansed and assessed. Recommendations for Xeroform gauze and foam dressings. Dressings applied and patient tolerated well. Dressing change instructions left in room. No other wounds noted upon complete head to toe assessment. Patient in bed. Call light in reach and bed lowered. Wound care will follow patient.
[2018-08-16 14:59] VITALS: BP 110/80
--- NOTE | 2018-08-16 15:38 | NUR ---
SW consulted to assist with AD. SW provided pt with AD and pt informed LISA he will notify SW if he wants to complete form at [facility]. Pt lives at home with family and well known to LISA. Pt reported he was not able to schedule appointment with PCP as he just received his insurance card recently. SW will continue to assess dc needs.
[2018-08-16 19:00] VITALS: BP 115/78
[2018-08-16] MEDS: LACTOBACILLUS RHAMNOSUS GG 1 CAPSULE. PO SCH (21:28)
[2018-08-16 23:00] VITALS: BP 110/75
[2018-08-17] VITALS (18 sets, daily range): BP systolic 91–145; BP diastolic 35–75
[2018-08-17] MEDS: MORPHINE SULFATE 4 MG/ML VIAL. IV PRN ×4 (04:02→21:12)
[2018-08-17] MEDS: AZTREONAM IV Push 1 GM VIAL. IVP SCH ×3 (05:31→22:29)
[2018-08-17] MEDS: LACTULOSE 20 GM/30 ML SOLUTION. PO SCH ×2 (08:18→21:12)
[2018-08-17] MEDS: rifAXIMin 550 MG TABLET PO SCH ×2 (08:18→21:12)
[2018-08-17] MEDS: LACTOBACILLUS RHAMNOSUS GG 1 CAPSULE. PO SCH ×2 (08:18→21:12)
[2018-08-17] MEDS: FUROSEMIDE 40 MG TABLET. PO SCH (08:18)
[2018-08-17] MEDS: SPIRONOLACTONE 25 MG TABLET PO SCH (08:18)
--- NOTE | 2018-08-17 09:44 | PDOC ---
Subjective: Subjective: Feels the same, on the way to have a bowel movement he thinks. Objective: Vital Signs: Vital Signs Date Time Temp Pulse Resp B/P (MAP) Pulse Ox O2 Delivery O2 Flow Rate FiO2 08/17/18 08:15 20 95 Room Air 08/17/18 07:00 98.6 86 105/75 (85) 98.6 PE: GEN: NAD, walking around LUNGS: room air HEART: RR ABD: large ascites EXTREMITY: BLE edema NEURO/PSYCH: A & O 3 A/P: ESLD, ascites, BLE edema -- Awaiting paracentesis. Will recheck labs considering diuretic use. VALERIA ALCOCER Aug 17, 2018 09:44
[2018-08-17 10:59] LABS: HEMATOCRIT 25.4 % (39.0-53.0); HEMOGLOBIN 8.3 g/dL (13.0-17.5); RED BLOOD COUNT 2.7 x10^6/uL (4.30-5.70); RED CELL DISTRIBUTION WIDTH 16.5 % (11.5-14.5)
[2018-08-17 11:09] LABS: PROTHROMBIN TIME PATIENT 19.7 SEC (11.7-14.0)
[2018-08-17 11:13] LABS: ALBUMIN 1.9 g/dL (3.4-5.0); ALBUMIN/GLOBULIN RATIO 0.3 (1.0-1.7); CALCIUM 8.7 mg/dL (8.5-10.1); CREATININE 2.1 mg/dL (0.7-1.3); GFR 32.8; POTASSIUM 5.9 mmol/L (3.5-5.1); TOTAL BILIRUBIN 3.1 mg/dL (0.2-1.0)
[2018-08-17] MEDS ORDERED: ALBUMIN HUMAN 25% 100 ML IV ONE ×4 (15:03→15:30)
--- NOTE | 2018-08-17 15:44 | PDOC ---
PROGRESS NOTES Chief Complaint Chief Complaint ESLD EtOH ism, he denies still drinking hyponatremia severe malnutrition, obese by BMI, BMI 31 anemia of chronic disease acute on chronic pancreatitis History of Present Illness History of Present Illness plan paracentesis DC soon oob to chair Vitals Vitals Vital Signs Date Time Temp Pulse Resp B/P (MAP) Pulse Ox O2 Delivery O2 Flow Rate FiO2 08/17/18 15:15 116 12 102/69 (80) 94 Room Air 08/17/18 11:00 97.2 97.2 Physical Exam General: Alert, Cooperative, No acute distress Lungs: Clear Abdomen: Normal bowel sounds, Soft (very swollen, distended, fluid wave) Extremities: No cyanosis, No edema, Normal pulses Skin: No rashes, No breakdown, No significant lesion Labs LABS Laboratory Tests Test 08/17/18 10:35 White Blood Count 10.0 x10^3/uL (4.0-11.0) Red Blood Count 2.70 x10^6/uL (4.30-5.70) Hemoglobin 8.3 g/dL (13.0-17.5) Hematocrit 25.4 % (39.0-53.0) Mean Corpuscular Volume 94 fL (79-100) Mean Corpuscular Hemoglobin 31 pg (25-35) Mean Corpuscular Hemoglobin Concent 33 g/dL (31-37) Red Cell Distribution Width 16.5 % (11.5-14.5) Platelet Count 144 x10^3/uL (140-400) Prothrombin Time 19.7 SEC (11.7-14.0) Prothromb Time International Ratio 1.7 (0.8-1.1) Sodium Level 127 mmol/L (136-145) Potassium Level 5.9 mmol/L (3.5-5.1) Chloride Level 94 mmol/L (98-107) Carbon Dioxide Level 21 mmol/L (21-32) Anion Gap 12 (6-14) Blood Urea Nitrogen 29 mg/dL (8-26) Creatinine 2.1 mg/dL (0.7-1.3) Estimated GFR (Cockcroft-Gault) 32.8 BUN/Creatinine Ratio 14 (6-20) Glucose Level 129 mg/dL (70-99) Calcium Level 8.7 mg/dL (8.5-10.1) Total Bilirubin 3.1 mg/dL (0.2-1.0) Aspartate Amino Transf (AST/SGOT) 49 U/L (15-37) Alanine Aminotransferase (ALT/SGPT) 27 U/L (16-63) Alkaline Phosphatase 115 U/L (46-116) Total Protein 8.0 g/dL (6.4-8.2) Albumin 1.9 g/dL (3.4-5.0) Albumin/Globulin Ratio 0.3 (1.0-1.7) Assessment and Plan Assessmemt and Plan Problems Medical Problems: (1) Ascites Status: Acute Comment Review of Relevant I have reviewed the following items arlette (where applicable) has been applied. Labs Laboratory Tests Test 08/15/18 19:38 08/15/18 21:03 08/16/18 02:45 08/17/18 10:35 White Blood Count 7.3 x10^3/uL (4.0-11.0) 10.0 x10^3/uL (4.0-11.0) Red Blood Count 2.90 x10^6/uL (4.30-5.70) 2.70 x10^6/uL (4.30-5.70) Hemoglobin 8.8 g/dL (13.0-17.5) 8.3 g/dL (13.0-17.5) Hematocrit 26.8 % (39.0-53.0) 25.4 % (39.0-53.0) Mean Corpuscular Volume 93 fL (79-100) 94 fL (79-100) Mean Corpuscular Hemoglobin 30 pg (25-35) 31 pg (25-35) Mean Corpuscular Hemoglobin Concent 33 g/dL (31-37) 33 g/dL (31-37) Red Cell Distribution Width 16.3 % (11.5-14.5) 16.5 % (11.5-14.5) Platelet Count 146 x10^3/uL (140-400) 144 x10^3/uL (140-400) Neutrophils (%) (Auto) 64 % (31-73) Lymphocytes (%) (Auto) 23 % (24-48) Monocytes (%) (Auto) 11 % (0-9) Eosinophils (%) (Auto) 2 % (0-3) Basophils (%) (Auto) 1 % (0-3) Neutrophils # (Auto) 4.6 x10^3uL (1.8-7.7) Lymphocytes # (Auto) 1.7 x10^3/uL (1.0-4.8) Monocytes # (Auto) 0.8 x10^3/uL (0.0-1.1) Eosinophils # (Auto) 0.1 x10^3/uL (0.0-0.7) Basophils # (Auto) 0.0 x10^3/uL (0.0-0.2) Prothrombin Time 19.1 SEC (11.7-14.0) 19.7 SEC (11.7-14.0) Prothromb Time International Ratio 1.6 (0.8-1.1) 1.7 (0.8-1.1) Sodium Level 126 mmol/L (136-145) 127 mmol/L (136-145) Potassium Level 4.9 mmol/L (3.5-5.1) 5.9 mmol/L (3.5-5.1) Chloride Level 94 mmol/L (98-107) 94 mmol/L (98-107) Carbon Dioxide Level 21 mmol/L (21-32) 21 mmol/L (21-32) Anion Gap 11 (6-14) 12 (6-14) Blood Urea Nitrogen 21 mg/dL (8-26) 29 mg/dL (8-26) Creatinine 1.0 mg/dL (0.7-1.3) 2.1 mg/dL (0.7-1.3) Estimated GFR (Cockcroft-Gault) 77.3 32.8 BUN/Creatinine Ratio 21 (6-20) 14 (6-20) Glucose Level 102 mg/dL (70-99) 129 mg/dL (70-99) Lactic Acid Level 4.0 mmol/L (0.4-2.0) 1.9 mmol/L (0.4-2.0) Calcium Level 8.6 mg/dL (8.5-10.1) 8.7 mg/dL (8.5-10.1) Magnesium Level 1.5 mg/dL (1.8-2.4) Total Bilirubin 2.4 mg/dL (0.2-1.0) 3.1 mg/dL (0.2-1.0) Aspartate Amino Transf (AST/SGOT) 56 U/L (15-37) 49 U/L (15-37) Alanine Aminotransferase (ALT/SGPT) 22 U/L (16-63) 27 U/L (16-63) Alkaline Phosphatase 189 U/L (46-116) 115 U/L (46-116) Troponin I Quantitative 0.029 ng/mL (0.000-0.055) RE-Lla-E-Type Natriuretic Peptide 114 pg/mL (0-124) Total Protein 7.8 g/dL (6.4-8.2) 8.0 g/dL (6.4-8.2) Albumin 1.7 g/dL (3.4-5.0) 1.9 g/dL (3.4-5.0) Albumin/Globulin Ratio 0.3 (1.0-1.7) 0.3 (1.0-1.7) Lipase 855 U/L (73-393) Ethyl Alcohol Level 15 mg/dL (0-10) Urine Collection Type Unknown Urine Color Milagros Urine Clarity Clear Urine pH 5.0 Urine Specific Lena 1.015 Urine Protein Negative mg/dL (NEG-TRACE) Urine Glucose (UA) Negative mg/dL (NEG) Urine Ketones (Stick) Negative mg/dL (NEG) Urine Blood Large (NEG) Urine Nitrite Negative (NEG) Urine Bilirubin Small (NEG) Urine Urobilinogen Dipstick 1.0 mg/dL (0.2 mg/dL) Urine Leukocyte Esterase Moderate (NEG) Urine RBC 11-20 /HPF (0-2) Urine WBC 11-20 /HPF (0-4) Urine Squamous Epithelial Cells Few /LPF Urine Bacteria Few /HPF (0-FEW) Urine Hyaline Casts Many /HPF Urine Mucus Mod /LPF Urine Opiates Screen Neg (NEG) Urine Methadone Screen Neg (NEG) Urine Barbiturates Neg (NEG) Urine Phencyclidine Screen Neg (NEG) Urine Amphetamine/Methamphetamine Neg (NEG) Urine Benzodiazepines Screen Neg (NEG) Urine Cocaine Screen Neg (NEG) Urine Cannabinoids Screen Neg (NEG) Urine Ethyl Alcohol Pos (NEG) Laboratory Tests Test 08/17/18 10:35 White Blood Count 10.0 x10^3/uL (4.0-11.0) Red Blood Count 2.70 x10^6/uL (4.30-5.70) Hemoglobin 8.3 g/dL (13.0-17.5) Hematocrit 25.4 % (39.0-53.0) Mean Corpuscular Volume 94 fL (79-100) Mean Corpuscular Hemoglobin 31 pg (25-35) Mean Corpuscular Hemoglobin Concent 33 g/dL (31-37) Red Cell Distribution Width 16.5 % (11.5-14.5) Platelet Count 144 x10^3/uL (140-400) Prothrombin Time 19.7 SEC (11.7-14.0) Prothromb Time International Ratio 1.7 (0.8-1.1) Sodium Level 127 mmol/L (136-145) Potassium Level 5.9 mmol/L (3.5-5.1) Chloride Level 94 mmol/L (98-107) Carbon Dioxide Level 21 mmol/L (21-32) Anion Gap 12 (6-14) Blood Urea Nitrogen 29 mg/dL (8-26) Creatinine 2.1 mg/dL (0.7-1.3) Estimated GFR (Cockcroft-Gault) 32.8 BUN/Creatinine Ratio 14 (6-20) Glucose Level 129 mg/dL (70-99) Calcium Level 8.7 mg/dL (8.5-10.1) Total Bilirubin 3.1 mg/dL (0.2-1.0) Aspartate Amino Transf (AST/SGOT) 49 U/L (15-37) Alanine Aminotransferase (ALT/SGPT) 27 U/L (16-63) Alkaline Phosphatase 115 U/L (46-116) Total Protein 8.0 g/dL (6.4-8.2) Albumin 1.9 g/dL (3.4-5.0) Albumin/Globulin Ratio 0.3 (1.0-1.7) Microbiology 08/15/18 Blood Culture - Preliminary, Resulted NO GROWTH AFTER 1 DAY Medications Current Medications Morphine Sulfate (Morphine Sulfate) 4 mg 1X ONCE IV Last administered on at 20:56; Start 08/15/18 at 21:00; Stop 08/15/18 at 21:01; Status DC Sodium Chloride 500 ml @ 500 mls/hr 1X ONCE IV Last administered on at 20:59; Start 08/15/18 at 21:00; Stop 08/15/18 at 21:59; Status DC Aztreonam (Azactam) 2 gm Q8HRS IVP Last administered on 08/16/18 05:32; Start 08/15/18 at 22:00; Stop 08/16/18 at 14:27; Status DC Morphine Sulfate (Morphine Sulfate) 4 mg PRN Q2HR PRN IV SEVERE PAIN Last administered on 08/16/18 21:45; Start 08/15/18 at 21:45; Stop 08/16/18 at 21:44 ; Status DC Sodium Chloride 1,000 ml @ 1,000 mls/hr 1X ONCE IV Last administered on 22:51; Start 08/15/18 at 23:00; Stop 08/15/18 at 23:59; Status DC Pharmacy Consult (C.diff Med Screen By Rx) 1 each 1X ONCE [facility] Last administered on 08/16/18 01:00; Start 08/16/18 at 01:00; Stop 08/16/18 at 01:01 ; Status DC Furosemide (Lasix) 40 mg DAILY PO Last administered on 08/17/18 08:18; Start 08/16/18 at 11:00; Stop 08/17/18 at 14:04; Status DC Spironolactone (Aldactone) 100 mg DAILY PO Last administered on 08/17/18 08:18 ; Start 08/16/18 at 11:00; Stop 08/17/18 at 14:04; Status DC Lactulose (Lactulose) 20 gm BID PO Last administered on 08/17/18 08:18; Start 08/16/18 at 11:00 Rifaximin (Xifaxan) 550 mg Q12HR PO Last administered on 08/17/18 08:18; Start 08/16/18 at 11:00 Lactobacillus Rhamnosus (Culturelle) 1 cap BID PO Last administered on 08:18; Start 08/16/18 at 21:00 Aztreonam (Azactam) 1 gm Q8HRS IVP Last administered on 08/17/18 14:00; Start 08/16/18 at 14:00 Morphine Sulfate (Morphine Sulfate) 4 mg PRN Q2HR PRN IV SEVERE PAIN Last administered on 2/20/19at 13:54; Start 08/17/18 at 03:45 Albumin Human 100 ml @ As Directed STK-MED ONCE IV ; Start 08/17/18 at 15:03; Stop 08/17/18 at 15:04; Status DC Albumin Human 100 ml @ 100 mls/hr 1X ONCE IV Last administered on 08/17/18at 15:15; Start 08/17/18 at 15:15; Stop 08/17/18 at 16:14 Albumin Human 100 ml @ As Directed STK-MED ONCE IV ; Start 08/17/18 at 15:21; Stop 08/17/18 at 15:22; Status DC Albumin Human 100 ml @ 100 mls/hr 1X ONCE IV Last administered on 08/17/18at 15:28; Start 08/17/18 at 15:30; Stop 08/17/18 at 16:29 Active Scripts Active Lasix (Furosemide) 20 Mg Tablet 1 Tab PO DAILY Tramadol Hcl 50 Mg Tablet 50 Mg PO Q6HRS PRN 7 Days Aldactone (Spironolactone) 25 Mg Tablet 50 Mg PO DAILY 30 Days Vitals/I & O Vital Sign - Last 24 Hours 08/16/18 08/16/18 08/16/18 08/16/18 17:50 19:00 20:00 21:45 Temp 97.4 97.4 Pulse 132 Resp 20 18 18 B/P (MAP) 115/78 (90) Pulse Ox 95 97 97 O2 Delivery Room Air Room Air Room Air Room Air 08/16/18 08/17/18 08/17/18 08/17/18 23:00 03:00 04:02 07:00 Temp 97.9 97.8 98.6 97.9 97.8 98.6 Pulse 119 132 86 Resp 18 18 19 18 B/P (MAP) 110/75 (87) 110/69 (83) 105/75 (85) Pulse Ox 95 94 95 99 O2 Delivery Room Air Room Air Room Air Room Air 08/17/18 08/17/18 08/17/18 08/17/18 08:00 08:15 08:45 11:00 Temp 97.2 97.2 Pulse 100 Resp 18 B/P (MAP) 108/67 (81) Pulse Ox 95 100 100 O2 Delivery Room Air Room Air Room Air Room Air 208/17/18 08/17/18 08/17/18 13:54 14:45 15:00 15:15 Pulse 110 121 116 Resp 20 15 15 12 B/P (MAP) 101/73 (82) 105/69 (81) 102/69 (80) Pulse Ox 100 94 94 94 O2 Delivery Room Air Room Air Room Air Room Air Intake and Output 08/16/18 08/16/18 08/17/18 15:00 23:00 07:00 Intake Total 140 ml 350 ml 120 ml Balance 140 ml 350 ml 120 ml AAMIR GREER MD Aug 17, 2018 15:44
--- NOTE | 2018-08-17 15:45 | NUR ---
Patient has returned to room. Bandage lower right abd, small amount of drainage noted. Albumin infusing, placed on IV pump. Patient drowsy, no complaint of increased discomfort at this time. Bilater rails up, call light and phone placed within easy reach.
--- NOTE | 2018-08-17 15:58 | RAD ---
Procedure: Ultrasound guided paracentesis Clinical Indication: 58-year-old with abdominal ascites Sedation: Local anesthesia only Antibiotics: None Fluoro Time: None Contrast: Not applicable Sterility: The procedure was performed in its entirety using appropriate elements of sterile technique. Consent: The procedure was explained in its entirety to the patient or the patients designated billing representative by a member of the treatment team, including a discussion of the risks, benefits and commonly accepted alternatives to the procedure, as well as the expected consequences of no therapy whatsoever. Discussion of the risks included, but was not limited to, those that are most frequent and those that are rare but possibly severe or life-threatening, as well as the possibility of unforeseen complications. Technique and Findings: Following informed consent, the patient was prepped and draped in the usual sterile fashion. Ultrasound interrogation of the abdomen revealed abdominal ascites. A hard copy ultrasound image was recorded. 1% Lidocaine was used to achieve local anesthesia over the area of interest, and a 6 Swedish [id number] catheter was advanced into the peritoneal cavity under ultrasound guidance. 6700 cc of thin yellow ascites was then withdrawn. The catheter was removed and hemostasis was achieved with manual compression. Complications: No immediate Impression: 1. Ultrasound-guided paracentesis as described
--- NOTE | 2018-08-17 16:06 | NUR ---
Patient has appeared to be in significantly better spirits this admission.
[2018-08-18] MEDS: MORPHINE SULFATE 4 MG/ML VIAL. IV PRN ×6 (01:27→22:13)
[2018-08-18 03:02] VITALS: BP 104/64
[2018-08-18] MEDS: AZTREONAM IV Push 1 GM VIAL. IVP SCH (06:38)
[2018-08-18 07:00] VITALS: BP 91/59
[2018-08-18 08:12] LABS: CALCIUM 8.3 mg/dL (8.5-10.1); CREATININE 1.8 mg/dL (0.7-1.3); GFR 39.2
[2018-08-18 08:16] LABS: POTASSIUM 5.8 mmol/L (3.5-5.1)
[2018-08-18] MEDS: rifAXIMin 550 MG TABLET PO SCH ×2 (10:03→20:31)
[2018-08-18] MEDS: LACTOBACILLUS RHAMNOSUS GG 1 CAPSULE. PO SCH ×2 (10:03→20:31)
[2018-08-18] MEDS: LACTULOSE 20 GM/30 ML SOLUTION. PO SCH ×2 (10:03→20:31)
--- NOTE | 2018-08-18 10:51 | PDOC ---
Subjective: Subjective: Feels better after paracentesis - says it was "painful" this time. Hasn't stooled but taking lactulose. Says has a good appetite. Objective: Vital Signs: Vital Signs Date Time Temp Pulse Resp B/P (MAP) Pulse Ox O2 Delivery O2 Flow Rate FiO2 08/18/18 07:00 98.3 113 20 91/59 (70) 96 Room Air 98.3 Labs: Laboratory Tests Test 08/18/18 07:35 Sodium Level 125 mmol/L Potassium Level 5.8 mmol/L Chloride Level 93 mmol/L Carbon Dioxide Level 21 mmol/L Anion Gap 11 Blood Urea Nitrogen 32 mg/dL Creatinine 1.8 mg/dL Estimated GFR (Cockcroft-Gault) 39.2 Glucose Level 100 mg/dL Calcium Level 8.3 mg/dL Imaging: Paracentesis 08/17 6700 cc of thin yellow ascites PE: GEN: NAD - standing by nurses station ABD: less distended NEURO/PSYCH: A & O 3 A/P: ESLD w/ recurrent ascites, BLE edema JERROD -- PO diuretics held yesterday w/ increased Cr (better today from 2.1 to 1.8). D/w Dr. Driscoll - plans to ask renal to see. Difficult situation w/ recurrent admissions and non-compliance. VALERIA ALCOCER Aug 18, 2018 10:51
--- NOTE | 2018-08-18 10:53 | PDOC ---
PROGRESS NOTES Chief Complaint Chief Complaint ESLD EtOH ism, he denies still drinking hyponatremia hyperkalemia acute renal failure, poss ATN, severe malnutrition, obese by BMI, BMI 31 anemia of chronic disease acute on chronic pancreatitis History of Present Illness History of Present Illness consult renal, hyperkalemia, hold diruetics for acute renal failure renal US, s/p paracentesis, 6.7 liters removed, Vitals Vitals Vital Signs Date Time Temp Pulse Resp B/P (MAP) Pulse Ox O2 Delivery O2 Flow Rate FiO2 08/18/18 07:00 98.3 113 20 91/59 (70) 96 Room Air 98.3 Physical Exam General: Alert, Cooperative, No acute distress Lungs: Clear Abdomen: Normal bowel sounds, Soft (very swollen, distended, fluid wave) Extremities: No cyanosis, No edema, Normal pulses Skin: No rashes, No breakdown, No significant lesion Labs LABS Laboratory Tests Test 08/18/18 07:35 Sodium Level 125 mmol/L (136-145) Potassium Level 5.8 mmol/L (3.5-5.1) Chloride Level 93 mmol/L (98-107) Carbon Dioxide Level 21 mmol/L (21-32) Anion Gap 11 (6-14) Blood Urea Nitrogen 32 mg/dL (8-26) Creatinine 1.8 mg/dL (0.7-1.3) Estimated GFR (Cockcroft-Gault) 39.2 Glucose Level 100 mg/dL (70-99) Calcium Level 8.3 mg/dL (8.5-10.1) Assessment and Plan Assessmemt and Plan Problems Medical Problems: (1) Ascites Status: Acute Comment Review of Relevant I have reviewed the following items arlette (where applicable) has been applied. Labs Laboratory Tests Test 08/17/18 10:35 08/18/18 07:35 White Blood Count 10.0 x10^3/uL (4.0-11.0) Red Blood Count 2.70 x10^6/uL (4.30-5.70) Hemoglobin 8.3 g/dL (13.0-17.5) Hematocrit 25.4 % (39.0-53.0) Mean Corpuscular Volume 94 fL (79-100) Mean Corpuscular Hemoglobin 31 pg (25-35) Mean Corpuscular Hemoglobin Concent 33 g/dL (31-37) Red Cell Distribution Width 16.5 % (11.5-14.5) Platelet Count 144 x10^3/uL (140-400) Prothrombin Time 19.7 SEC (11.7-14.0) Prothromb Time International Ratio 1.7 (0.8-1.1) Sodium Level 127 mmol/L (136-145) 125 mmol/L (136-145) Potassium Level 5.9 mmol/L (3.5-5.1) 5.8 mmol/L (3.5-5.1) Chloride Level 94 mmol/L (98-107) 93 mmol/L (98-107) Carbon Dioxide Level 21 mmol/L (21-32) 21 mmol/L (21-32) Anion Gap 12 (6-14) 11 (6-14) Blood Urea Nitrogen 29 mg/dL (8-26) 32 mg/dL (8-26) Creatinine 2.1 mg/dL (0.7-1.3) 1.8 mg/dL (0.7-1.3) Estimated GFR (Cockcroft-Gault) 32.8 39.2 BUN/Creatinine Ratio 14 (6-20) Glucose Level 129 mg/dL (70-99) 100 mg/dL (70-99) Calcium Level 8.7 mg/dL (8.5-10.1) 8.3 mg/dL (8.5-10.1) Total Bilirubin 3.1 mg/dL (0.2-1.0) Aspartate Amino Transf (AST/SGOT) 49 U/L (15-37) Alanine Aminotransferase (ALT/SGPT) 27 U/L (16-63) Alkaline Phosphatase 115 U/L (46-116) Total Protein 8.0 g/dL (6.4-8.2) Albumin 1.9 g/dL (3.4-5.0) Albumin/Globulin Ratio 0.3 (1.0-1.7) Laboratory Tests Test 08/18/18 07:35 Sodium Level 125 mmol/L (136-145) Potassium Level 5.8 mmol/L (3.5-5.1) Chloride Level 93 mmol/L (98-107) Carbon Dioxide Level 21 mmol/L (21-32) Anion Gap 11 (6-14) Blood Urea Nitrogen 32 mg/dL (8-26) Creatinine 1.8 mg/dL (0.7-1.3) Estimated GFR (Cockcroft-Gault) 39.2 Glucose Level 100 mg/dL (70-99) Calcium Level 8.3 mg/dL (8.5-10.1) Microbiology 08/15/18 Blood Culture - Preliminary, Resulted NO GROWTH AFTER 2 DAYS 08/15/18 Urine Culture - Final, Complete 08/15/18 Urine Culture Result 1 (KENDALL) - Final, Complete Medications Current Medications Morphine Sulfate (Morphine Sulfate) 4 mg 1X ONCE IV Last administered on at 20:56; Start 08/15/18 at 21:00; Stop 08/15/18 at 21:01; Status DC Sodium Chloride 500 ml @ 500 mls/hr 1X ONCE IV Last administered on at 20:59; Start 08/15/18 at 21:00; Stop 08/15/18 at 21:59; Status DC Aztreonam (Azactam) 2 gm Q8HRS IVP Last administered on 08/16/18at 05:32; Start 08/15/18 at 22:00; Stop 08/16/18 at 14:27; Status DC Morphine Sulfate (Morphine Sulfate) 4 mg PRN Q2HR PRN IV SEVERE PAIN Last administered on 08/16/18 21:45; Start 08/15/18 at 21:45; Stop 08/16/18 at 21:44 ; Status DC Sodium Chloride 1,000 ml @ 1,000 mls/hr 1X ONCE IV Last administered on at 22:51; Start 08/15/18 at 23:00; Stop 08/15/18 at 23:59; Status DC Pharmacy Consult (C.diff Med Screen By Rx) 1 each 1X ONCE [facility] Last administered on 08/16/18 01:00; Start 08/16/18 at 01:00; Stop 08/16/18 at 01:01 ; Status DC Furosemide (Lasix) 40 mg DAILY PO Last administered on 08/17/18at 08:18; Start 08/16/18 at 11:00; Stop 08/17/18 at 14:04; Status DC Spironolactone (Aldactone) 100 mg DAILY PO Last administered on 08/17/18at 08:18 ; Start 08/16/18 at 11:00; Stop 08/17/18 at 14:04; Status DC Lactulose (Lactulose) 20 gm BID PO Last administered on 08/18/18at 10:03; Start 08/16/18 at 11:00 Rifaximin (Xifaxan) 550 mg Q12HR PO Last administered on 08/18/18at 10:03; Start 08/16/18 at 11:00 Lactobacillus Rhamnosus (Culturelle) 1 cap BID PO Last administered on at 10:03; Start 08/16/18 at 21:00 Aztreonam (Azactam) 1 gm Q8HRS IVP Last administered on 08/18/18 06:38; Start 08/16/18 at 14:00; Stop 08/18/18 at 10:48; Status DC Morphine Sulfate (Morphine Sulfate) 4 mg PRN Q2HR PRN IV SEVERE PAIN Last administered on 08/18/18 08:08; Start 08/17/18 at 03:45 Albumin Human 100 ml @ As Directed STK-MED ONCE IV ; Start 08/17/18 at 15:03; Stop 08/17/18 at 15:04; Status DC Albumin Human 100 ml @ 100 mls/hr 1X ONCE IV Last administered on 08/17/18at 15:15; Start 08/17/18 at 15:15; Stop 08/17/18 at 16:14; Status DC Albumin Human 100 ml @ As Directed STK-MED ONCE IV ; Start 08/17/18 at 15:21; Stop 08/17/18 at 15:22; Status DC Albumin Human 100 ml @ 100 mls/hr 1X ONCE IV Last administered on 08/17/18at 15:28; Start 08/17/18 at 15:30; Stop 08/17/18 at 16:29; Status DC Active Scripts Active Lasix (Furosemide) 20 Mg Tablet 1 Tab PO DAILY Tramadol Hcl 50 Mg Tablet 50 Mg PO Q6HRS PRN 7 Days Aldactone (Spironolactone) 25 Mg Tablet 50 Mg PO DAILY 30 Days Vitals/I & O Vital Sign - Last 24 Hours 08/17/18 08/17/18 08/17/18 08/17/18 11:00 13:54 14:45 15:00 Temp 97.2 97.2 Pulse 100 110 121 Resp 18 20 15 15 B/P (MAP) 108/67 (81) 101/73 (82) 105/69 (81) Pulse Ox 100 100 94 94 O2 Delivery Room Air Room Air Room Air Room Air 08/17/18 08/17/18 08/17/18 08/17/18 15:15 15:25 15:32 15:37 Pulse 116 63 88 114 Resp 12 B/P (MAP) 102/69 (80) 145/66 (92) 104/35 (58) 98/61 (73) Pulse Ox 94 96 99 94 O2 Delivery Room Air Room Air Room Air Room Air 08/17/18 08/17/18 08/17/18 08/17/18 15:44 15:59 16:15 16:29 Pulse 116 115 110 116 B/P (MAP) 105/58 (74) 94/55 (68) 91/56 (68) 94/61 (72) Pulse Ox 95 98 99 96 O2 Delivery Room Air Room Air Room Air Room Air 08/17/18 08/17/18 08/17/18 08/17/18 16:59 17:29 17:59 19:00 Temp 97.9 97.9 Pulse 116 114 118 121 Resp 20 B/P (MAP) 95/61 (72) 96/60 (72) 91/62 (72) 95/60 (72) Pulse Ox 97 95 90 97 O2 Delivery Room Air Room Air Room Air Room Air 08/17/18 08/17/18 08/17/18 08/18/18 20:00 21:12 23:02 01:27 Temp 97.9 97.9 Pulse 122 Resp 20 20 20 B/P (MAP) 101/63 (76) Pulse Ox 97 97 97 O2 Delivery Room Air Room Air Room Air Room Air 08/18/18 08/18/18 08/18/18 08/18/18 01:57 03:02 04:49 07:00 Temp 98.3 98.3 98.3 98.3 Pulse 124 113 Resp 18 20 20 20 B/P (MAP) 104/64 (77) 91/59 (70) Pulse Ox 95 95 95 96 O2 Delivery Room Air Room Air Room Air Room Air Intake and Output 08/17/18 08/17/18 08/18/18 15:00 23:00 07:00 Output Total 6700 ml 0 ml Balance -6700 ml 0 ml AAMIR GREER MD Aug 18, 2018 10:53
[2018-08-18 11:00] VITALS: BP 111/66
[2018-08-18] MEDS ORDERED: SODIUM POLYSTYRENE SULFONATE 15 GM/60 ML ORAL.SUSP. PO ONE (12:15)
--- NOTE | 2018-08-18 13:42 | PDOC2 ---
CONSULT Date of Consult Date of Consult DATE: 08/18/18 TIME: 13:33 Reason for Consult Reason for Consult: JERROD, hyperkalemia Identification/Chief Complaint Chief Complaint None currently Source Source: Chart review, Patient History of Present Illness Reason for Visit: Mr Thompson is a 57yo CM w/ PMHx cirrhosis with ascites was Hospitalized recently with worsening abdominal distention, swelling, shortness of breath He has a Dx of Cirrhosis, had a paracentesis performed 05/11 in which 8 L of fluid was removed, 06/27/19 4.7 L removed, Fluid studies c/w transudate w/o infectious appearance. Admitted with acute on chronic abd pain, pain 01/04, now better. w/ abd distention/discomfort, BLE swelling, some SOA. Says he's gained 10 pounds. he reports to be compliant with meds Frequent admissions since 04/2018 US 05/09 showed cholecystitis w/ out convincing evidence of cholecystitis ; CT 05/09 showed ascites, cirrhosis, steatosis, and cholelithiasis. Paracentesis was 06/27/18 with 4.7 L removed 07/21/18 with 6L removed 07/27 8700 cc removed Most recent 07/29- 3000 cc of thin yellow ascites As per Pt haven't had a DRink (Etoh) for past many months(ETOH Positive this visit)- states had Non alcoholic Beer Past Medical History Cardiovascular: No pertinent hx Pulmonary: No pertinent hx GI: GERD, Peptic Ulcer disease Heme/Onc: Anemia NOS Hepatobiliary: Cirrhosis, Other Musculoskeletal: low back pain Past Surgical History Past Surgical History: Total knee replacement, Other Family History Family History: Hypertension Social History No ALCOHOL: none Drugs: None Lives: with Family Current Problem List Problem List Problems Medical Problems: (1) Ascites Status: Acute Current Medications Current Medications Current Medications Morphine Sulfate (Morphine Sulfate) 4 mg 1X ONCE IV Last administered on at 20:56; Start 08/15/18 at 21:00; Stop 08/15/18 at 21:01; Status DC Sodium Chloride 500 ml @ 500 mls/hr 1X ONCE IV Last administered on at 20:59; Start 08/15/18 at 21:00; Stop 08/15/18 at 21:59; Status DC Aztreonam (Azactam) 2 gm Q8HRS IVP Last administered on 08/16/18 05:32; Start 08/15/18 at 22:00; Stop 08/16/18 at 14:27; Status DC Morphine Sulfate (Morphine Sulfate) 4 mg PRN Q2HR PRN IV SEVERE PAIN Last administered on 08/16/18 21:45; Start 08/15/18 at 21:45; Stop 08/16/18 at 21:44 ; Status DC Sodium Chloride 1,000 ml @ 1,000 mls/hr 1X ONCE IV Last administered on 22:51; Start 08/15/18 at 23:00; Stop 08/15/18 at 23:59; Status DC Pharmacy Consult (C.diff Med Screen By Rx) 1 each 1X ONCE MC Last administered on 08/16/18 01:00; Start 08/16/18 at 01:00; Stop 08/16/18 at 01:01 ; Status DC Furosemide (Lasix) 40 mg DAILY PO Last administered on 08/17/18 08:18; Start 08/16/18 at 11:00; Stop 08/17/18 at 14:04; Status DC Spironolactone (Aldactone) 100 mg DAILY PO Last administered on 08/17/18 08:18 ; Start 08/16/18 at 11:00; Stop 08/17/18 at 14:04; Status DC Lactulose (Lactulose) 20 gm BID PO Last administered on 08/18/18 10:03; Start 08/16/18 at 11:00 Rifaximin (Xifaxan) 550 mg Q12HR PO Last administered on 08/18/18 10:03; Start 08/16/18 at 11:00 Lactobacillus Rhamnosus (Culturelle) 1 cap BID PO Last administered on 10:03; Start 08/16/18 at 21:00 Aztreonam (Azactam) 1 gm Q8HRS IVP Last administered on 08/18/18 06:38; Start 08/16/18 at 14:00; Stop 08/18/18 at 10:48; Status DC Morphine Sulfate (Morphine Sulfate) 4 mg PRN Q2HR PRN IV SEVERE PAIN Last administered on 08/18/18 11:20; Start 08/17/18 at 03:45 Albumin Human 100 ml @ As Directed STK-MED ONCE IV ; Start 08/17/18 at 15:03; Stop 08/17/18 at 15:04; Status DC Albumin Human 100 ml @ 100 mls/hr 1X ONCE IV Last administered on 08/17/18at 15:15; Start 08/17/18 at 15:15; Stop 08/17/18 at 16:14; Status DC Albumin Human 100 ml @ As Directed STK-MED ONCE IV ; Start 08/17/18 at 15:21; Stop 08/17/18 at 15:22; Status DC Albumin Human 100 ml @ 100 mls/hr 1X ONCE IV Last administered on 08/17/18at 15:28; Start 08/17/18 at 15:30; Stop 08/17/18 at 16:29; Status DC Sodium Polystyrene Sulfonate (Kayexalate) 15 gm 1X ONCE PO ; Start 08/18/18 at 12:15; Stop 08/18/18 at 12:16; Status DC Active Scripts Active Lasix (Furosemide) 20 Mg Tablet 1 Tab PO DAILY Tramadol Hcl 50 Mg Tablet 50 Mg PO Q6HRS PRN 7 Days Aldactone (Spironolactone) 25 Mg Tablet 50 Mg PO DAILY 30 Days Allergies Allergies: Coded Allergies: Penicillins (Verified Allergy, Severe, ANPHYLAXIS, 05/30/18) trovafloxacin (Verified Allergy, Severe, Anaphylaxis, 05/30/18) Anaphylactic Influenza Virus Vaccines (Verified Allergy, Intermediate, 06/16/18) ROS Review of System As per HPI Physical Exam Physical Exam General: Alert, Oriented X3, Cooperative, No acute distress HEENT:Mucous membr. moist/pink Neck Supple Lungs: Clear to auscultation, Normal air movement Heart: S1S2, RRR, no gallops, no murmurs Abdomen: Normal bowel sounds, distended, ascites+, Extremities: , edema +, Bilat LE Skin: No rashes, Neuro:Grossly Normal No horan Vital Signs Vital Signs Date Time Temp Pulse Resp B/P (MAP) Pulse Ox O2 Delivery O2 Flow Rate FiO2 08/18/18 11:00 98.1 122 20 111/66 (81) 98 Room Air 98.1 Assessment & Plan JERROD- Prerenal Vs Hepatorenal Multiple Paracentesis Paracentesis This admission 08/17-6700 ml Fluid removed Hold Diuretics, ESLD- cirrhosis Multiple Paracentesis Hyperkalemia- Was On Aldactone Monitor, Kayexalate as needed Hyponatremia- Secondary to ESLD MELD higher when calculated for Hyponatremia Poor Prognosis unless gets a Liver Tx ETOH Abuse Refractory/Recurrent ascites Cholelithiasis - stable Labs Labs Laboratory Tests Test 08/17/18 10:35 08/18/18 07:35 White Blood Count 10.0 x10^3/uL (4.0-11.0) Red Blood Count 2.70 x10^6/uL (4.30-5.70) Hemoglobin 8.3 g/dL (13.0-17.5) Hematocrit 25.4 % (39.0-53.0) Mean Corpuscular Volume 94 fL (79-100) Mean Corpuscular Hemoglobin 31 pg (25-35) Mean Corpuscular Hemoglobin Concent 33 g/dL (31-37) Red Cell Distribution Width 16.5 % (11.5-14.5) Platelet Count 144 x10^3/uL (140-400) Prothrombin Time 19.7 SEC (11.7-14.0) Prothromb Time International Ratio 1.7 (0.8-1.1) Sodium Level 127 mmol/L (136-145) 125 mmol/L (136-145) Potassium Level 5.9 mmol/L (3.5-5.1) 5.8 mmol/L (3.5-5.1) Chloride Level 94 mmol/L (98-107) 93 mmol/L (98-107) Carbon Dioxide Level 21 mmol/L (21-32) 21 mmol/L (21-32) Anion Gap 12 (6-14) 11 (6-14) Blood Urea Nitrogen 29 mg/dL (8-26) 32 mg/dL (8-26) Creatinine 2.1 mg/dL (0.7-1.3) 1.8 mg/dL (0.7-1.3) Estimated GFR (Cockcroft-Gault) 32.8 39.2 BUN/Creatinine Ratio 14 (6-20) Glucose Level 129 mg/dL (70-99) 100 mg/dL (70-99) Calcium Level 8.7 mg/dL (8.5-10.1) 8.3 mg/dL (8.5-10.1) Total Bilirubin 3.1 mg/dL (0.2-1.0) Aspartate Amino Transf (AST/SGOT) 49 U/L (15-37) Alanine Aminotransferase (ALT/SGPT) 27 U/L (16-63) Alkaline Phosphatase 115 U/L (46-116) Total Protein 8.0 g/dL (6.4-8.2) Albumin 1.9 g/dL (3.4-5.0) Albumin/Globulin Ratio 0.3 (1.0-1.7) Laboratory Tests Test 08/18/18 07:35 Sodium Level 125 mmol/L (136-145) Potassium Level 5.8 mmol/L (3.5-5.1) Chloride Level 93 mmol/L (98-107) Carbon Dioxide Level 21 mmol/L (21-32) Anion Gap 11 (6-14) Blood Urea Nitrogen 32 mg/dL (8-26) Creatinine 1.8 mg/dL (0.7-1.3) Estimated GFR (Cockcroft-Gault) 39.2 Glucose Level 100 mg/dL (70-99) Calcium Level 8.3 mg/dL (8.5-10.1) Review All relevant outside records, renal labs, imaging studies, telemetry/EKG's were reviewed. ALIX BYRD MD Aug 18, 2018 13:42
[2018-08-18 15:00] VITALS: BP 110/71
[2018-08-18] MEDS: oxyCODONE/APAP 5/325 1 TAB TABLET PO PRN ×2 (15:42→20:04)
[2018-08-18] MEDS: oxyCODONE IR 5 MG TABLET PO PRN (17:55)
[2018-08-18 19:00] VITALS: BP 101/60
[2018-08-18 23:00] VITALS: BP 118/74
[2018-08-19] MEDS: oxyCODONE/APAP 5/325 1 TAB TABLET PO PRN ×5 (01:37→21:45)
[2018-08-19 03:00] VITALS: BP 130/85
[2018-08-19] MEDS: oxyCODONE IR 5 MG TABLET PO PRN (04:16)
[2018-08-19 04:25] LABS: BASO % 0 % (0-3); EOS % 0 % (0-3); HEMATOCRIT 22.9 % (39.0-53.0); HEMOGLOBIN 7.5 g/dL (13.0-17.5); LYMPH # 0.3 x10^3/uL (1.0-4.8); LYMPH % 15 % (24-48); MEAN CORPUSCULAR HEMOGLOBIN 30 pg (25-35); MEAN CORPUSCULAR HGB CONC 33 g/dL (31-37); MEAN CORPUSCULAR VOLUME 92 fL (79-100); MONO # 0.1 x10^3/uL (0.0-1.1); MONO % 4 % (0-9); NEUT # 1.9 x10^3uL (1.8-7.7); NEUT % 81 % (31-73); PLATELET COUNT 106 x10^3/uL (140-400); RED BLOOD COUNT 2.48 x10^6/uL (4.30-5.70); RED CELL DISTRIBUTION WIDTH 15.7 % (11.5-14.5); WHITE BLOOD COUNT 2.3 x10^3/uL (4.0-11.0)
[2018-08-19 06:23] LABS: ALBUMIN 2.2 g/dL (3.4-5.0); ALBUMIN/GLOBULIN RATIO 0.4 (1.0-1.7); CALCIUM 8.5 mg/dL (8.5-10.1); CREATININE 1.5 mg/dL (0.7-1.3); GFR 48.4; MAGNESIUM 1.6 mg/dL (1.8-2.4); PHOSPHORUS 4.7 mg/dL (2.6-4.7); TOTAL BILIRUBIN 1.8 mg/dL (0.2-1.0); TOTAL PROTEIN 7.7 g/dL (6.4-8.2)
[2018-08-19 06:30] LABS: POTASSIUM 5.5 mmol/L (3.5-5.1)
[2018-08-19 07:00] VITALS: BP 120/73
--- NOTE | 2018-08-19 07:48 | RAD ---
Renal ultrasound, 08/18/2018: HISTORY: Acute renal failure The right kidney measures 9.8 cm in length while the left kidney measures 9.6 cm. There is no evidence of hydronephrosis or a renal mass. The renal parenchymal echogenicity is within normal limits. The bladder is collapsed and not adequately visualized. Incidental note is made of a small volume of ascites. IMPRESSION: 1. No significant renal abnormality is detected. 2. Ascites Electronically signed by: Seb Stevens MD (08/19/2018 7:45 AM) [facility]
[2018-08-19] MEDS: LACTULOSE 20 GM/30 ML SOLUTION. PO SCH ×2 (08:43→21:45)
[2018-08-19] MEDS: LACTOBACILLUS RHAMNOSUS GG 1 CAPSULE. PO SCH ×2 (08:43→21:44)
[2018-08-19] MEDS: rifAXIMin 550 MG TABLET PO SCH ×2 (08:43→21:45)
[2018-08-19 11:00] VITALS: BP 112/77
--- NOTE | 2018-08-19 11:53 | PDOC ---
Subjective: Subjective: Trying to untangle tele wires. Feels the same. Objective: Vital Signs: Vital Signs Date Time Temp Pulse Resp B/P (MAP) Pulse Ox O2 Delivery O2 Flow Rate FiO2 08/19/18 08:24 Room Air 08/19/18 07:14 20 98 08/19/18 07:00 98.4 122 120/73 (89) 98.4 Labs: Laboratory Tests Test 08/19/18 03:45 White Blood Count 2.3 x10^3/uL Red Blood Count 2.48 x10^6/uL Hemoglobin 7.5 g/dL Hematocrit 22.9 % Mean Corpuscular Volume 92 fL Mean Corpuscular Hemoglobin 30 pg Mean Corpuscular Hemoglobin Concent 33 g/dL Red Cell Distribution Width 15.7 % Platelet Count 106 x10^3/uL Neutrophils (%) (Auto) 81 % Lymphocytes (%) (Auto) 15 % Monocytes (%) (Auto) 4 % Eosinophils (%) (Auto) 0 % Basophils (%) (Auto) 0 % Neutrophils # (Auto) 1.9 x10^3uL Lymphocytes # (Auto) 0.3 x10^3/uL Monocytes # (Auto) 0.1 x10^3/uL Eosinophils # (Auto) 0.0 x10^3/uL Basophils # (Auto) 0.0 x10^3/uL Sodium Level 125 mmol/L Potassium Level 5.5 mmol/L Chloride Level 93 mmol/L Carbon Dioxide Level 21 mmol/L Anion Gap 11 Blood Urea Nitrogen 29 mg/dL Creatinine 1.5 mg/dL Estimated GFR (Cockcroft-Gault) 48.4 BUN/Creatinine Ratio 19 Glucose Level 137 mg/dL Calcium Level 8.5 mg/dL Phosphorus Level 4.7 mg/dL Magnesium Level 1.6 mg/dL Total Bilirubin 1.8 mg/dL Aspartate Amino Transf (AST/SGOT) 46 U/L Alanine Aminotransferase (ALT/SGPT) 25 U/L Alkaline Phosphatase 107 U/L Total Protein 7.7 g/dL Albumin 2.2 g/dL Albumin/Globulin Ratio 0.4 PE: GEN: NAD LUNGS: room air ABD: still distended EXTREM: BLE pitting edema NEURO/PSYCH: A & O 3 A/P: ESLD w/ recurrent ascites JERROD -- Cr better - PO diuretics on hold. Continue lactulose, Xifaxan, sodium and fluid restriction. Non-compliant - still drinking. VALERIA ALCOCER Aug 19, 2018 11:53
--- NOTE | 2018-08-19 14:10 | PDOC ---
SUBJECTIVE ROS Stable OBJECTIVE Vital Signs Vital Signs Date Time Temp Pulse Resp B/P (MAP) Pulse Ox O2 Delivery O2 Flow Rate FiO2 08/19/18 13:14 Room Air 08/19/18 11:00 97.7 115 18 112/77 (89) 99 97.7 I & 0 Intake and Output 08/19/18 06:59 Intake Total 150 ml Output Total 850 ml Balance -700 ml Intake Oral 150 ml Output Urine Total 850 ml PHYSICAL EXAM Physical Exam General: Alert, Oriented X3, Cooperative, No acute distress HEENT:Mucous membr. moist/pink Neck Supple Lungs: Clear to auscultation, Normal air movement Heart: S1S2, RRR, no gallops, no murmurs Abdomen: Normal bowel sounds, distended, ascites+, Extremities: , edema +, Bilat LE Skin: No rashes, Neuro:Grossly Normal No horan DIAGNOSIS/ASSESSMENT Assessment & Plan JERROD- Prerenal Vs Hepatorenal Multiple Paracentesis Paracentesis This admission 08/17-6700 ml Fluid removed Hold Diuretics,improving ESLD- cirrhosis Frequent Paracentesis Hyperkalemia- Was On Aldactone Improved, Mildly high, Monitor, Hyponatremia- Secondary to ESLD MELD higher when calculated for Hyponatremia Poor Prognosis unless gets a Liver Tx PO Fluid restriction ETOH Abuse Refractory/Recurrent ascites Cholelithiasis - stable COMMENT/RELEVANT DATA Meds Current Medications Medications (Trade) Dose Ordered Sig/Marc Start Time Stop Time Status Last Admin Dose Admin Albumin Human 100 ml @ 100 mls/hr 1X ONCE 08/17/18 15:30 08/17/18 16:29 DC 08/17/18 15:28 100 MLS/HR Aztreonam (Azactam) 1 gm Q8HRS 08/16/18 14:00 08/18/18 10:48 DC 08/18/18 06:38 1 GM Furosemide (Lasix) 40 mg DAILY 08/16/18 11:00 08/17/18 14:04 DC 08/17/18 08:18 40 MG Lactobacillus Rhamnosus (Culturelle) 1 cap BID 08/16/18 21:00 08/19/18 08:43 1 CAP Lactulose (Lactulose) 20 gm BID 08/16/18 11:00 08/19/18 08:43 20 GM Morphine Sulfate (Morphine Sulfate) 4 mg PRN Q2HR PRN 08/17/18 03:45 08/18/18 22:13 4 MG Oxycodone HCl (Roxicodone) 5 mg PRN Q6HRS PRN 08/18/18 14:30 08/19/18 04:16 5 MG Oxycodone/ Acetaminophen (Percocet 5/325) 1 tab PRN Q4HRS PRN 08/18/18 14:30 08/19/18 12:17 1 TAB Pharmacy Consult (C.diff Med Screen By Rx) 1 each 1X ONCE 08/16/18 01:00 08/16/18 01:01 DC 08/16/18 01:00 1 EACH Rifaximin (Xifaxan) 550 mg Q12HR 08/16/18 11:00 08/19/18 08:43 550 MG Sodium Polystyrene Sulfonate (Kayexalate) 15 gm 1X ONCE 08/18/18 12:15 08/18/18 12:16 DC 08/18/18 13:39 15 GM Sodium Chloride 1,000 ml @ 1,000 mls/hr 1X ONCE 08/15/18 23:00 08/15/18 23:59 DC 08/15/18 22:51 1,000 MLS/HR Spironolactone (Aldactone) 100 mg DAILY 08/16/18 11:00 08/17/18 14:04 DC 08/17/18 08:18 100 MG Lab Laboratory Tests Test 08/19/18 03:45 White Blood Count 2.3 x10^3/uL (4.0-11.0) Red Blood Count 2.48 x10^6/uL (4.30-5.70) Hemoglobin 7.5 g/dL (13.0-17.5) Hematocrit 22.9 % (39.0-53.0) Mean Corpuscular Volume 92 fL (79-100) Mean Corpuscular Hemoglobin 30 pg (25-35) Mean Corpuscular Hemoglobin Concent 33 g/dL (31-37) Red Cell Distribution Width 15.7 % (11.5-14.5) Platelet Count 106 x10^3/uL (140-400) Neutrophils (%) (Auto) 81 % (31-73) Lymphocytes (%) (Auto) 15 % (24-48) Monocytes (%) (Auto) 4 % (0-9) Eosinophils (%) (Auto) 0 % (0-3) Basophils (%) (Auto) 0 % (0-3) Neutrophils # (Auto) 1.9 x10^3uL (1.8-7.7) Lymphocytes # (Auto) 0.3 x10^3/uL (1.0-4.8) Monocytes # (Auto) 0.1 x10^3/uL (0.0-1.1) Eosinophils # (Auto) 0.0 x10^3/uL (0.0-0.7) Basophils # (Auto) 0.0 x10^3/uL (0.0-0.2) Sodium Level 125 mmol/L (136-145) Potassium Level 5.5 mmol/L (3.5-5.1) Chloride Level 93 mmol/L (98-107) Carbon Dioxide Level 21 mmol/L (21-32) Anion Gap 11 (6-14) Blood Urea Nitrogen 29 mg/dL (8-26) Creatinine 1.5 mg/dL (0.7-1.3) Estimated GFR (Cockcroft-Gault) 48.4 BUN/Creatinine Ratio 19 (6-20) Glucose Level 137 mg/dL (70-99) Calcium Level 8.5 mg/dL (8.5-10.1) Phosphorus Level 4.7 mg/dL (2.6-4.7) Magnesium Level 1.6 mg/dL (1.8-2.4) Total Bilirubin 1.8 mg/dL (0.2-1.0) Aspartate Amino Transf (AST/SGOT) 46 U/L (15-37) Alanine Aminotransferase (ALT/SGPT) 25 U/L (16-63) Alkaline Phosphatase 107 U/L (46-116) Total Protein 7.7 g/dL (6.4-8.2) Albumin 2.2 g/dL (3.4-5.0) Albumin/Globulin Ratio 0.4 (1.0-1.7) Results All relevant outside records, renal labs, imaging studies, telemetry/EKG's were reviewed. ALIX BYRD MD Aug 19, 2018 14:10
[2018-08-19 14:53] VITALS: BP 126/84
--- NOTE | 2018-08-19 16:05 | PDOC ---
PROGRESS NOTES Chief Complaint Chief Complaint ESLD EtOH ism, he denies still drinking hyponatremia hyperkalemia acute renal failure, poss ATN, severe malnutrition, obese by BMI, BMI 31 anemia of chronic disease acute on chronic pancreatitis History of Present Illness History of Present Illness plan DC in AM hyperkalemia better, hold diruetics for acute renal failure s/p paracentesis, 6.7 liters removed, Vitals Vitals Vital Signs Date Time Temp Pulse Resp B/P (MAP) Pulse Ox O2 Delivery O2 Flow Rate FiO2 08/19/18 14:53 98.3 120 20 126/84 (98) 98 Room Air 98.3 Physical Exam General: Alert, Cooperative, No acute distress Lungs: Clear Abdomen: Normal bowel sounds, Soft (very swollen, distended, fluid wave) Extremities: No cyanosis, No edema, Normal pulses Skin: No rashes, No breakdown, No significant lesion Labs LABS Laboratory Tests Test 08/19/18 03:45 White Blood Count 2.3 x10^3/uL (4.0-11.0) Red Blood Count 2.48 x10^6/uL (4.30-5.70) Hemoglobin 7.5 g/dL (13.0-17.5) Hematocrit 22.9 % (39.0-53.0) Mean Corpuscular Volume 92 fL (79-100) Mean Corpuscular Hemoglobin 30 pg (25-35) Mean Corpuscular Hemoglobin Concent 33 g/dL (31-37) Red Cell Distribution Width 15.7 % (11.5-14.5) Platelet Count 106 x10^3/uL (140-400) Neutrophils (%) (Auto) 81 % (31-73) Lymphocytes (%) (Auto) 15 % (24-48) Monocytes (%) (Auto) 4 % (0-9) Eosinophils (%) (Auto) 0 % (0-3) Basophils (%) (Auto) 0 % (0-3) Neutrophils # (Auto) 1.9 x10^3uL (1.8-7.7) Lymphocytes # (Auto) 0.3 x10^3/uL (1.0-4.8) Monocytes # (Auto) 0.1 x10^3/uL (0.0-1.1) Eosinophils # (Auto) 0.0 x10^3/uL (0.0-0.7) Basophils # (Auto) 0.0 x10^3/uL (0.0-0.2) Sodium Level 125 mmol/L (136-145) Potassium Level 5.5 mmol/L (3.5-5.1) Chloride Level 93 mmol/L (98-107) Carbon Dioxide Level 21 mmol/L (21-32) Anion Gap 11 (6-14) Blood Urea Nitrogen 29 mg/dL (8-26) Creatinine 1.5 mg/dL (0.7-1.3) Estimated GFR (Cockcroft-Gault) 48.4 BUN/Creatinine Ratio 19 (6-20) Glucose Level 137 mg/dL (70-99) Calcium Level 8.5 mg/dL (8.5-10.1) Phosphorus Level 4.7 mg/dL (2.6-4.7) Magnesium Level 1.6 mg/dL (1.8-2.4) Total Bilirubin 1.8 mg/dL (0.2-1.0) Aspartate Amino Transf (AST/SGOT) 46 U/L (15-37) Alanine Aminotransferase (ALT/SGPT) 25 U/L (16-63) Alkaline Phosphatase 107 U/L (46-116) Total Protein 7.7 g/dL (6.4-8.2) Albumin 2.2 g/dL (3.4-5.0) Albumin/Globulin Ratio 0.4 (1.0-1.7) Assessment and Plan Assessmemt and Plan Problems Medical Problems: (1) Ascites Status: Acute Comment Review of Relevant I have reviewed the following items arlette (where applicable) has been applied. Labs Laboratory Tests Test 08/18/18 07:35 08/19/18 03:45 Sodium Level 125 mmol/L (136-145) 125 mmol/L (136-145) Potassium Level 5.8 mmol/L (3.5-5.1) 5.5 mmol/L (3.5-5.1) Chloride Level 93 mmol/L (98-107) 93 mmol/L (98-107) Carbon Dioxide Level 21 mmol/L (21-32) 21 mmol/L (21-32) Anion Gap 11 (6-14) 11 (6-14) Blood Urea Nitrogen 32 mg/dL (8-26) 29 mg/dL (8-26) Creatinine 1.8 mg/dL (0.7-1.3) 1.5 mg/dL (0.7-1.3) Estimated GFR (Cockcroft-Gault) 39.2 48.4 Glucose Level 100 mg/dL (70-99) 137 mg/dL (70-99) Calcium Level 8.3 mg/dL (8.5-10.1) 8.5 mg/dL (8.5-10.1) White Blood Count 2.3 x10^3/uL (4.0-11.0) Red Blood Count 2.48 x10^6/uL (4.30-5.70) Hemoglobin 7.5 g/dL (13.0-17.5) Hematocrit 22.9 % (39.0-53.0) Mean Corpuscular Volume 92 fL (79-100) Mean Corpuscular Hemoglobin 30 pg (25-35) Mean Corpuscular Hemoglobin Concent 33 g/dL (31-37) Red Cell Distribution Width 15.7 % (11.5-14.5) Platelet Count 106 x10^3/uL (140-400) Neutrophils (%) (Auto) 81 % (31-73) Lymphocytes (%) (Auto) 15 % (24-48) Monocytes (%) (Auto) 4 % (0-9) Eosinophils (%) (Auto) 0 % (0-3) Basophils (%) (Auto) 0 % (0-3) Neutrophils # (Auto) 1.9 x10^3uL (1.8-7.7) Lymphocytes # (Auto) 0.3 x10^3/uL (1.0-4.8) Monocytes # (Auto) 0.1 x10^3/uL (0.0-1.1) Eosinophils # (Auto) 0.0 x10^3/uL (0.0-0.7) Basophils # (Auto) 0.0 x10^3/uL (0.0-0.2) BUN/Creatinine Ratio 19 (6-20) Phosphorus Level 4.7 mg/dL (2.6-4.7) Magnesium Level 1.6 mg/dL (1.8-2.4) Total Bilirubin 1.8 mg/dL (0.2-1.0) Aspartate Amino Transf (AST/SGOT) 46 U/L (15-37) Alanine Aminotransferase (ALT/SGPT) 25 U/L (16-63) Alkaline Phosphatase 107 U/L (46-116) Total Protein 7.7 g/dL (6.4-8.2) Albumin 2.2 g/dL (3.4-5.0) Albumin/Globulin Ratio 0.4 (1.0-1.7) Laboratory Tests Test 08/19/18 03:45 White Blood Count 2.3 x10^3/uL (4.0-11.0) Red Blood Count 2.48 x10^6/uL (4.30-5.70) Hemoglobin 7.5 g/dL (13.0-17.5) Hematocrit 22.9 % (39.0-53.0) Mean Corpuscular Volume 92 fL (79-100) Mean Corpuscular Hemoglobin 30 pg (25-35) Mean Corpuscular Hemoglobin Concent 33 g/dL (31-37) Red Cell Distribution Width 15.7 % (11.5-14.5) Platelet Count 106 x10^3/uL (140-400) Neutrophils (%) (Auto) 81 % (31-73) Lymphocytes (%) (Auto) 15 % (24-48) Monocytes (%) (Auto) 4 % (0-9) Eosinophils (%) (Auto) 0 % (0-3) Basophils (%) (Auto) 0 % (0-3) Neutrophils # (Auto) 1.9 x10^3uL (1.8-7.7) Lymphocytes # (Auto) 0.3 x10^3/uL (1.0-4.8) Monocytes # (Auto) 0.1 x10^3/uL (0.0-1.1) Eosinophils # (Auto) 0.0 x10^3/uL (0.0-0.7) Basophils # (Auto) 0.0 x10^3/uL (0.0-0.2) Sodium Level 125 mmol/L (136-145) Potassium Level 5.5 mmol/L (3.5-5.1) Chloride Level 93 mmol/L (98-107) Carbon Dioxide Level 21 mmol/L (21-32) Anion Gap 11 (6-14) Blood Urea Nitrogen 29 mg/dL (8-26) Creatinine 1.5 mg/dL (0.7-1.3) Estimated GFR (Cockcroft-Gault) 48.4 BUN/Creatinine Ratio 19 (6-20) Glucose Level 137 mg/dL (70-99) Calcium Level 8.5 mg/dL (8.5-10.1) Phosphorus Level 4.7 mg/dL (2.6-4.7) Magnesium Level 1.6 mg/dL (1.8-2.4) Total Bilirubin 1.8 mg/dL (0.2-1.0) Aspartate Amino Transf (AST/SGOT) 46 U/L (15-37) Alanine Aminotransferase (ALT/SGPT) 25 U/L (16-63) Alkaline Phosphatase 107 U/L (46-116) Total Protein 7.7 g/dL (6.4-8.2) Albumin 2.2 g/dL (3.4-5.0) Albumin/Globulin Ratio 0.4 (1.0-1.7) Microbiology 08/15/18 Blood Culture - Preliminary, Resulted NO GROWTH AFTER 3 DAYS 08/15/18 Urine Culture - Final, Complete 08/15/18 Urine Culture Result 1 (KENDALL) - Final, Complete Medications Current Medications Morphine Sulfate (Morphine Sulfate) 4 mg 1X ONCE IV Last administered on at 20:56; Start 08/15/18 at 21:00; Stop 08/15/18 at 21:01; Status DC Sodium Chloride 500 ml @ 500 mls/hr 1X ONCE IV Last administered on at 20:59; Start 08/15/18 at 21:00; Stop 08/15/18 at 21:59; Status DC Aztreonam (Azactam) 2 gm Q8HRS IVP Last administered on 08/16/18at 05:32; Start 08/15/18 at 22:00; Stop 08/16/18 at 14:27; Status DC Morphine Sulfate (Morphine Sulfate) 4 mg PRN Q2HR PRN IV SEVERE PAIN Last administered on 08/16/18at 21:45; Start 08/15/18 at 21:45; Stop 08/16/18 at 21:44 ; Status DC Sodium Chloride 1,000 ml @ 1,000 mls/hr 1X ONCE IV Last administered on at 22:51; Start 08/15/18 at 23:00; Stop 08/15/18 at 23:59; Status DC Pharmacy Consult (C.diff Med Screen By Rx) 1 each 1X ONCE [facility] Last administered on 08/16/18at 01:00; Start 08/16/18 at 01:00; Stop 08/16/18 at 01:01 ; Status DC Furosemide (Lasix) 40 mg DAILY PO Last administered on 08/17/18at 08:18; Start 08/16/18 at 11:00; Stop 08/17/18 at 14:04; Status DC Spironolactone (Aldactone) 100 mg DAILY PO Last administered on 08/17/18at 08:18 ; Start 08/16/18 at 11:00; Stop 08/17/18 at 14:04; Status DC Lactulose (Lactulose) 20 gm BID PO Last administered on 08/19/18at 08:43; Start 08/16/18 at 11:00 Rifaximin (Xifaxan) 550 mg Q12HR PO Last administered on 08/19/18at 08:43; Start 08/16/18 at 11:00 Lactobacillus Rhamnosus (Culturelle) 1 cap BID PO Last administered on at 08:43; Start 08/16/18 at 21:00 Aztreonam (Azactam) 1 gm Q8HRS IVP Last administered on 08/18/18at 06:38; Start 08/16/18 at 14:00; Stop 08/18/18 at 10:48; Status DC Morphine Sulfate (Morphine Sulfate) 4 mg PRN Q2HR PRN IV SEVERE PAIN Last administered on 08/18/18at 22:13; Start 08/17/18 at 03:45 Albumin Human 100 ml @ As Directed STK-MED ONCE IV ; Start 08/17/18 at 15:03; Stop 08/17/18 at 15:04; Status DC Albumin Human 100 ml @ 100 mls/hr 1X ONCE IV Last administered on 08/17/18at 15:15; Start 08/17/18 at 15:15; Stop 08/17/18 at 16:14; Status DC Albumin Human 100 ml @ As Directed STK-MED ONCE IV ; Start 08/17/18 at 15:21; Stop 08/17/18 at 15:22; Status DC Albumin Human 100 ml @ 100 mls/hr 1X ONCE IV Last administered on 08/17/18at 15:28; Start 08/17/18 at 15:30; Stop 08/17/18 at 16:29; Status DC Sodium Polystyrene Sulfonate (Kayexalate) 15 gm 1X ONCE PO Last administered on 08/18/18at 13:39; Start 08/18/18 at 12:15; Stop 08/18/18 at 12:16; Status DC Oxycodone/ Acetaminophen (Percocet 5/325) 1 tab PRN Q4HRS PRN PO PAIN 1ST CHOICE Last administered on 08/19/18at 12:17; Start 08/18/18 at 14:30 Oxycodone HCl (Roxicodone) 5 mg PRN Q6HRS PRN PO PAIN 2ND CHOICE Last administered on 08/19/18at 04:16; Start 08/18/18 at 14:30 Active Scripts Active Lasix (Furosemide) 20 Mg Tablet 1 Tab PO DAILY Tramadol Hcl 50 Mg Tablet 50 Mg PO Q6HRS PRN 7 Days Aldactone (Spironolactone) 25 Mg Tablet 50 Mg PO DAILY 30 Days Vitals/I & O Vital Sign - Last 24 Hours 08/18/18 08/18/18 08/18/18 08/18/18 17:55 19:00 20:00 20:04 Temp 98.6 98.6 Pulse 120 Resp 20 20 B/P (MAP) 101/60 (74) Pulse Ox 100 95 100 O2 Delivery Room Air Room Air Room Air Room Air 08/18/18 08/18/18 08/18/18 08/19/18 22:13 22:43 23:00 01:37 Temp 98.6 98.6 Pulse 121 Resp 20 18 20 18 B/P (MAP) 118/74 (89) Pulse Ox 100 97 97 97 O2 Delivery Room Air Room Air Room Air Room Air 08/19/18 08/19/18 08/19/18 08/19/18 02:37 03:00 04:16 05:16 Temp 98.1 98.1 Pulse 117 Resp 18 20 20 20 B/P (MAP) 130/85 (100) Pulse Ox 98 98 98 98 O2 Delivery Room Air Room Air Room Air 08/19/18 08/19/18 08/19/18 08/19/18 07:00 07:14 08:00 11:00 Temp 98.4 97.7 98.4 97.7 Pulse 122 115 Resp 18 20 18 B/P (MAP) 120/73 (89) 112/77 (89) Pulse Ox 97 98 99 O2 Delivery Room Air Room Air Room Air Room Air 08/19/18 08/19/18 08/19/18 12:17 13:14 14:53 Temp 98.3 98.3 Pulse 120 Resp 20 B/P (MAP) 126/84 (98) Pulse Ox 98 O2 Delivery Room Air Room Air Room Air Intake and Output 08/18/18 08/18/18 08/19/18 15:00 23:00 07:00 Intake Total 120 ml 30 ml Output Total 850 ml Balance -730 ml 30 ml AAMIR GREER MD Aug 19, 2018 16:05
[2018-08-19 19:00] VITALS: BP 108/63
[2018-08-19 23:00] VITALS: BP 107/66
[2018-08-20] MEDS: oxyCODONE/APAP 5/325 1 TAB TABLET PO PRN (01:58)
[2018-08-20 03:02] VITALS: BP 117/77
[2018-08-20 03:59] LABS: BASO % 0 % (0-3); EOS # 0.1 x10^3/uL (0.0-0.7); EOS % 2 % (0-3); HEMATOCRIT 22.7 % (39.0-53.0); HEMOGLOBIN 7.5 g/dL (13.0-17.5); LYMPH # 1.4 x10^3/uL (1.0-4.8); LYMPH % 21 % (24-48); MEAN CORPUSCULAR HEMOGLOBIN 30 pg (25-35); MEAN CORPUSCULAR HGB CONC 33 g/dL (31-37); MEAN CORPUSCULAR VOLUME 92 fL (79-100); MONO # 0.8 x10^3/uL (0.0-1.1); MONO % 13 % (0-9); NEUT # 4.3 x10^3uL (1.8-7.7); NEUT % 65 % (31-73); PLATELET COUNT 113 x10^3/uL (140-400); RED BLOOD COUNT 2.46 x10^6/uL (4.30-5.70); RED CELL DISTRIBUTION WIDTH 15.9 % (11.5-14.5); WHITE BLOOD COUNT 6.6 x10^3/uL (4.0-11.0)
[2018-08-20 04:07] LABS: PROTHROMBIN TIME PATIENT 21.1 SEC (11.7-14.0)
[2018-08-20 04:19] LABS: ALBUMIN 2.1 g/dL (3.4-5.0); ALBUMIN/GLOBULIN RATIO 0.4 (1.0-1.7); CALCIUM 8.5 mg/dL (8.5-10.1); CREATININE 1.3 mg/dL (0.7-1.3); GFR 57.1; TOTAL BILIRUBIN 1.5 mg/dL (0.2-1.0); TOTAL PROTEIN 7.3 g/dL (6.4-8.2)
[2018-08-20 08:00] VITALS: BP 123/82
[2018-08-20] MEDS: LACTOBACILLUS RHAMNOSUS GG 1 CAPSULE. PO SCH (09:00)
[2018-08-20] MEDS: rifAXIMin 550 MG TABLET PO SCH (09:00)
[2018-08-20] MEDS: LACTULOSE 20 GM/30 ML SOLUTION. PO SCH (09:00)
[2018-08-20] MEDS ORDERED: FURO-68 PO (09:53)
[2018-08-20] MEDS ORDERED: SPIR25TA PO (09:53)
[2018-08-20] MEDS ORDERED: RIFA550T4 PO (09:53)
[2018-08-20 11:00] VITALS: BP 101/61
--- NOTE | 2018-08-20 11:56 | PDOC ---
SUBJECTIVE ROS Follow-up for acute renal failure Urine output is not recorded today. Patient claims she is pretty groggy today. He apparently has not consumed much of his breakfast currently. He denies any new symptoms currently OBJECTIVE Vital Signs Vital Signs Date Time Temp Pulse Resp B/P (MAP) Pulse Ox O2 Delivery O2 Flow Rate FiO2 08/20/18 08:00 Room Air 08/20/18 08:00 98.1 116 20 123/82 (96) 97 98.1 I & 0 Intake and Output 08/20/18 06:59 Intake Total 480 ml Balance 480 ml Intake Oral 480 ml # Voids 2 PHYSICAL EXAM Physical Exam GEN: Awake, Oriented x 1-2, In no distress EYES: Vision Unchanged, Conjunctiva Normal EN: No EN Drainage, Mucous Membranes moist NECK: no JVD, min JVP, Supple, no Thyromegaly CVS: S1S2, ? soft Murmur, No Gallop, No Rub,tr Edema RESP: no Rales, no Rhonchi,no Acc. Muscle Use GI: BS + ve, NO Bruit, Non Tender, + Distended : no CVA tenderness, no Suprapubic Tenderness DIAGNOSIS/ASSESSMENT Assessment & Plan JERROD-now resolved after holding diuretics. Urine output not recorded. We'll hence give IV albumin. ESLD- cirrhosis : Possible hepatorenal state cannot be ruled out Hyperkalemia- Was On Aldactone; much improved off of the same. Hyponatremia- Secondary to ESLD ; MELD higher when calculated for Hyponatremia . Reevaluate with IV albumin as ordered. ETOH Abuse maybe conjugating hyponatremia also. Refractory/Recurrent ascites : Recommend use of IV albumin associated with frequent paracentesis Cholelithiasis - stable COMMENT/RELEVANT DATA Meds Current Medications Medications (Trade) Dose Ordered Sig/Marc Start Time Stop Time Status Last Admin Dose Admin Albumin Human 100 ml @ 100 mls/hr 1X ONCE 08/17/18 15:30 08/17/18 16:29 DC 08/17/18 15:28 100 MLS/HR Aztreonam (Azactam) 1 gm Q8HRS 08/16/18 14:00 08/18/18 10:48 DC 08/18/18 06:38 1 GM Furosemide (Lasix) 40 mg DAILY 08/16/18 11:00 08/17/18 14:04 DC 08/17/18 08:18 40 MG Lactobacillus Rhamnosus (Culturelle) 1 cap BID 08/16/18 21:00 08/19/18 21:44 1 CAP Lactulose (Lactulose) 20 gm BID 08/16/18 11:00 08/19/18 21:45 20 GM Morphine Sulfate (Morphine Sulfate) 4 mg PRN Q2HR PRN 08/17/18 03:45 08/18/18 22:13 4 MG Oxycodone HCl (Roxicodone) 5 mg PRN Q6HRS PRN 08/18/18 14:30 08/19/18 04:16 5 MG Oxycodone/ Acetaminophen (Percocet 5/325) 1 tab PRN Q4HRS PRN 08/18/18 14:30 08/20/18 01:58 1 TAB Pharmacy Consult (C.diff Med Screen By Rx) 1 each 1X ONCE 08/16/18 01:00 08/16/18 01:01 DC 08/16/18 01:00 1 EACH Rifaximin (Xifaxan) 550 mg Q12HR 08/16/18 11:00 08/19/18 21:45 550 MG Sodium Polystyrene Sulfonate (Kayexalate) 15 gm 1X ONCE 08/18/18 12:15 08/18/18 12:16 DC 08/18/18 13:39 15 GM Sodium Chloride 1,000 ml @ 1,000 mls/hr 1X ONCE 08/15/18 23:00 08/15/18 23:59 DC 08/15/18 22:51 1,000 MLS/HR Spironolactone (Aldactone) 100 mg DAILY 08/16/18 11:00 08/17/18 14:04 DC 08/17/18 08:18 100 MG Lab Laboratory Tests Test 08/20/18 03:25 White Blood Count 6.6 x10^3/uL (4.0-11.0) Red Blood Count 2.46 x10^6/uL (4.30-5.70) Hemoglobin 7.5 g/dL (13.0-17.5) Hematocrit 22.7 % (39.0-53.0) Mean Corpuscular Volume 92 fL (79-100) Mean Corpuscular Hemoglobin 30 pg (25-35) Mean Corpuscular Hemoglobin Concent 33 g/dL (31-37) Red Cell Distribution Width 15.9 % (11.5-14.5) Platelet Count 113 x10^3/uL (140-400) Neutrophils (%) (Auto) 65 % (31-73) Lymphocytes (%) (Auto) 21 % (24-48) Monocytes (%) (Auto) 13 % (0-9) Eosinophils (%) (Auto) 2 % (0-3) Basophils (%) (Auto) 0 % (0-3) Neutrophils # (Auto) 4.3 x10^3uL (1.8-7.7) Lymphocytes # (Auto) 1.4 x10^3/uL (1.0-4.8) Monocytes # (Auto) 0.8 x10^3/uL (0.0-1.1) Eosinophils # (Auto) 0.1 x10^3/uL (0.0-0.7) Basophils # (Auto) 0.0 x10^3/uL (0.0-0.2) Prothrombin Time 21.1 SEC (11.7-14.0) Prothromb Time International Ratio 1.9 (0.8-1.1) Sodium Level 126 mmol/L (136-145) Potassium Level 5.0 mmol/L (3.5-5.1) Chloride Level 94 mmol/L (98-107) Carbon Dioxide Level 22 mmol/L (21-32) Anion Gap 10 (6-14) Blood Urea Nitrogen 29 mg/dL (8-26) Creatinine 1.3 mg/dL (0.7-1.3) Estimated GFR (Cockcroft-Gault) 57.1 BUN/Creatinine Ratio 22 (6-20) Glucose Level 117 mg/dL (70-99) Calcium Level 8.5 mg/dL (8.5-10.1) Total Bilirubin 1.5 mg/dL (0.2-1.0) Aspartate Amino Transf (AST/SGOT) 41 U/L (15-37) Alanine Aminotransferase (ALT/SGPT) 24 U/L (16-63) Alkaline Phosphatase 148 U/L (46-116) Total Protein 7.3 g/dL (6.4-8.2) Albumin 2.1 g/dL (3.4-5.0) Albumin/Globulin Ratio 0.4 (1.0-1.7) Results All relevant outside records, renal labs, imaging studies, telemetry/EKG's were reviewed. RUPERTO GIL MD Aug 20, 2018 11:56
[2018-08-20] MEDS ORDERED: ALBUMIN HUMAN 25% 100 ML IV SCH (14:00)
--- NOTE | 2018-08-20 14:34 | NUR ---
Discharge Note: MARQUISE BARKER [address] [place] [address] Discharge instructions and discharge home medications reviewed with Patient and a copy given. All questions have been answered and understanding verbalized. The following instructions and handouts were given: Ascites, fluid restriction Discontinued lines and drains: peripheral line. Patient discharged to Home or Self Care with Self via Wheelchair
[2018-09-09] MEDS ORDERED: TRAM50TA PO (11:38)
== END 2018-08-20 14:37 | disposition home or self-care (01) | DRG 432 ==
LOC: ER 19:09 → 5 NORTH 21:40
PROVIDERS: ADMIT Internal Medicine; ATTEND Internal Medicine
PROC: 0W9G3ZZ Drainage of Peritoneal Cavity, Percutaneous Approach (ICD-10-PCS; principal; 2018-08-17)
DX: K70.31 Alcoholic cirrhosis of liver with ascites (principal); K85.90 Acute pancreatitis without necrosis or infection, unspecified; E43 Unspecified severe protein-calorie malnutrition; N39.0 Urinary tract infection, site not specified; E87.1 Hypo-osmolality and hyponatremia; N17.9 Acute kidney failure, unspecified; K86.1 Other chronic pancreatitis; K72.90 Hepatic failure, unspecified without coma; D63.8 Anemia in other chronic diseases classified elsewhere; E87.5 Hyperkalemia; E66.9 Obesity, unspecified; G89.29 Other chronic pain; K80.20 Calculus of gallbladder without cholecystitis without obstruction; J45.909 Unspecified asthma, uncomplicated; M54.5 Low back pain; F10.10 Alcohol abuse, uncomplicated; Z96.659 Presence of unspecified artificial knee joint; K21.9 Gastro-esophageal reflux disease without esophagitis; Z68.31 Body mass index [BMI] 31.0-31.9, adult; Z82.49 Family history of ischemic heart disease and other diseases of the circulatory system; Z91.19 Patient's noncompliance with other medical treatment and regimen; Z87.11 Personal history of peptic ulcer disease; Z88.0 Allergy status to penicillin; Z88.7 Allergy status to serum and vaccine; Z88.8 Allergy status to other drugs, medicaments and biological substances
CPT/HCPCS: 36415; 49083; 71045; 76770; 80048; 80053; 80307; 81001; 83605; 83690; 83735; 83880; 84100; 84484; 85025; 85027; 85610; 87040; 87086; 93005; G0480; J2270; J3490; J7030; J7040; P9046; 99285-25

== ENCOUNTER 2018-08-23 23:05 | Inpatient (IN) | payer OTHER ==
[~2018-08-23] VITALS: Ht 170.2 cm; Wt 84.8 kg
[~2018-08-23 23:05] MED LIST changes: +FURO-68 PO
--- NOTE | 2018-08-23 23:27 | PHYS DOC ---
Past Medical History Past Medical History: Asthma, Liver Disease, Other Additional Past Medical Histor: CELLULITIS,BORDERLINE HTN, ASCITES Past Surgical History: Other Additional Past Surgical Histo: L WRIST ORIF,L KNEE, ABD TAPPED Alcohol Use: Sober Drug Use: None Adult General Chief Complaint Chief Complaint: ABDOMINAL PAIN HPI HPI Patient is a 58 year old male with history of sinusitis who presents with the ED today complaining of increased ascites. Patient states his had abdominal pain intermittently for 2 days. He states he last drank alcohol 2 days ago. He states his been drinking for years and is "saturated with alcohol". He states he does not follow-up with any primary care doctor or GI doctor because he still waiting for his provider to arrange for him to see a primary care doctor as well as a GI specialist. Patient states he had paracentesis a week ago. He states he feels he recollected the fluid. He is complaining of sharp diffuse moderate generalized abdominal pain. Review of Systems Review of Systems Constitutional: Denies fever or chills [] Eyes: Denies change in visual acuity, redness, or eye pain [] HENT: Denies nasal congestion or sore throat [] Respiratory: Denies cough or shortness of breath [] Cardiovascular: No additional information not addressed in HPI [] GI: Denies abdominal pain, nausea, vomiting, bloody stools or diarrhea [] : Denies dysuria or hematuria [] Musculoskeletal: Denies back pain or joint pain [] Integument: Denies rash or skin lesions [] Neurologic: Denies headache, focal weakness or sensory changes [] Endocrine: Denies polyuria or polydipsia [] All other systems were reviewed and found to be within normal limits, except as documented in this note. Current Medications Current Medications Allergies Allergies Allergies Coded Allergies Type Severity Reaction Last Updated Verified Penicillins Allergy Severe ANPHYLAXIS 05/30/18 Yes trovafloxacin Allergy Severe Anaphylaxis 05/30/18 Yes Influenza Virus Vaccines Allergy Intermediate 06/16/18 Yes Physical Exam Physical Exam Constitutional: Well developed, well nourished, no acute distress, non-toxic appearance. [] HENT: Normocephalic, atraumatic, bilateral external ears normal, oropharynx moist, no oral exudates, nose normal. [] Eyes: PERRLA, EOMI, conjunctiva normal, no discharge. [] Neck: Normal range of motion, no tenderness, supple, no stridor. [] Cardiovascular:Heart rate regular rhythm, no murmur [] Lungs & Thorax: Bilateral breath sounds clear to auscultation [] Abdomen: Moderately rounded abdomen consistent with ascites. Bowel sounds normal , soft, tenderness diffusely throughout the abdomen, no masses, no pulsatile masses. [] Skin: Warm, dry, no erythema, no rash. [] Back: No tenderness, no CVA tenderness. [] Extremities: No tenderness, no cyanosis, no clubbing, ROM intact, no edema. [] Neurologic: Alert and oriented X 3, normal motor function, normal sensory function, no focal deficits noted. [] Psychologic: Affect normal, judgement normal, mood normal. [] Current Patient Data Vital Signs Vital Signs Date Time Temp Pulse Resp B/P (MAP) Pulse Ox O2 Delivery O2 Flow Rate FiO2 08/23/18 23:20 99.7 133 18 118/85 (96) 100 Room Air 99.7 EKG EKG [] Radiology/Procedures Radiology/Procedures [] Course & Med Decision Making Course & Med Decision Making Pertinent Labs and Imaging studies reviewed. (See chart for details) This is a 58-year-old male patient presenting to the ED today with complaints of chronic ascites, patient states he has more recollected fluids. He states he was last seen in the Hospital 1 week ago and had paracentesis. He is also admitting to drinking alcohol 2 days ago. Admitted under Dr. Ruiz-Dr. Flores will give Dr. Ruiz report in AM Routine GI consult placed in AM Dragon Disclaimer Drag Disclaimer This electronic medical record was generated, in whole or in part, using a voice recognition dictation system. Departure Departure Impression: Primary Impression: Ascites Additional Impressions: ETOH abuse Acute pancreatitis Fever Disposition: ADMITTED INPATIENT Condition: STABLE Referrals: NO PCP (PCP) Problem Qualifiers Primary Impression: Ascites Ascites type: due to alcoholic cirrhosis Qualified Codes: K70.31 - Alcoholic cirrhosis of liver with ascites Additional Impressions: Acute pancreatitis Pancreatitis type: alcohol induced Acute pancreatitis complication: unspecified Qualified Codes: K85.20 - Alcohol induced acute pancreatitis without necrosis or infection Fever Fever type: unspecified Qualified Codes: R50.9 - Fever, unspecified MUTUNGA,QUENTIN LATEX [employer] MACHINE OPERATOR Aug 23, 2018 23:27
[2018-08-23] MEDS ORDERED: ONDANSETRON PF 4 MG/2 ML VIAL. IV ONE (23:30)
[2018-08-23] MEDS ORDERED: MORPHINE SULFATE 4 MG/ML VIAL. IV ONE (23:30)
[2018-08-23] MEDS ORDERED: ONDANSETRON PF 4 MG/2 ML VIAL. IV PRN (23:45)
[2018-08-23] MEDS ORDERED: CONTRAST GIVEN. MC PRN (23:55)
[2018-08-23] MEDS ORDERED: IOHEXOL 300 MG/ML 100ML VIAL. IV ONE (23:55)
[2018-08-23 23:56] LABS: BASO # 0.1 x10^3/uL (0.0-0.2); BASO % 2 % (0-3); EOS # 0.1 x10^3/uL (0.0-0.7); EOS % 3 % (0-3); HEMATOCRIT 27.5 % (39.0-53.0); HEMOGLOBIN 8.9 g/dL (13.0-17.5); LYMPH # 1.4 x10^3/uL (1.0-4.8); LYMPH % 35 % (24-48); MEAN CORPUSCULAR HEMOGLOBIN 30 pg (25-35); MEAN CORPUSCULAR HGB CONC 32 g/dL (31-37); MEAN CORPUSCULAR VOLUME 92 fL (79-100); MONO # 0.5 x10^3/uL (0.0-1.1); MONO % 12 % (0-9); NEUT % 48 % (31-73); PLATELET COUNT 134 x10^3/uL (140-400); RED BLOOD COUNT 2.98 x10^6/uL (4.30-5.70); RED CELL DISTRIBUTION WIDTH 16.4 % (11.5-14.5); WHITE BLOOD COUNT 4.1 x10^3/uL (4.0-11.0)
[2018-08-24] VITALS (9 sets, daily range): BP systolic 84–131; BP diastolic 51–92
[2018-08-24 00:02] LABS: BILIRUBIN,URINE SMALL (NEG); CLARITY,URINE CLEAR; COLOR,URINE ORANGE; NITRITE,URINE NEGATIVE (NEG); PROTEIN,URINE NEGATIVE (NEG-TRACE)
[2018-08-24 00:04] LABS: CALCIUM 8.4 mg/dL (8.5-10.1); CREATININE 0.9 mg/dL (0.7-1.3); GFR 87.3; POTASSIUM 4.5 mmol/L (3.5-5.1)
[2018-08-24 00:08] LABS: BARBITURATES NEG (NEG); BENZODIAZEPINES NEG (NEG); CANNABINOIDS NEG (NEG); COCAINE NEG (NEG); METHADONE NEG (NEG); OPIATES POS (NEG); PHENCYCLIDINE NEG (NEG)
[2018-08-24 00:09] LABS: AMPHETAMINE/METHAMPHETAMINE NEG (NEG)
[2018-08-24 00:09] LABS: ALBUMIN 1.9 g/dL (3.4-5.0); ALBUMIN/GLOBULIN RATIO 0.3 (1.0-1.7); TOTAL BILIRUBIN 2.5 mg/dL (0.2-1.0); TOTAL PROTEIN 7.4 g/dL (6.4-8.2)
[2018-08-24 00:13] LABS: BACTERIA,URINE FEW /HPF (0-FEW); HYALINE CASTS, URINE MANY /HPF; SQUAMOUS EPITHELIAL CELL,UR OCC /LPF
[2018-08-24] MEDS ORDERED: IV NORMAL SALINE 1000ML BAG 1,000 ML IV ONE (00:30)
[2018-08-24] MEDS ORDERED: IBUPROFEN 200 MG TABLET. PO ONE (00:45)
--- NOTE | 2018-08-24 00:52 | RAD ---
EXAM: CT Abdomen and Pelvis with IV contrast CLINICAL HISTORY: Abdominal pain, distension; ascites COMPARISON: 06/26/2018, 05/09/2018. TECHNIQUE: Helical CT of the abdomen and pelvis was performed following the administration of intravenous contrast. Oral contrast was administered. Axial, coronal and sagittal reformatted images were generated. PQRS compliance statement - One or more of the following individualized dose reduction techniques were utilized for this study: 1. Automated exposure control 2. Adjustment of the mA and/or kV according to patient size 3. Use of iterative reconstruction technique FINDINGS: Lower chest: Linear opacities in the middle lobe likely scarring/atelectasis. Coronary artery calcifications are seen. Abdomen and Pelvis: The liver is cirrhotic in morphology. Calcified gallstones are seen within the gallbladder. No biliary ductal dilatation. Pancreas is unremarkable. Calcified granulomas are seen within the spleen. Spleen is enlarged measuring 15 cm in length. Right-sided vascular collaterals are seen with recanalized umbilical vein. Pancreas is unremarkable. Adrenal glands are normal. No abnormal small or large bowel dilatation is seen. Fluid-filled loops of small bowel are seen measuring up to 2.7 cm in diameter. Moderate to large volume abdominal and pelvic ascites. No pneumoperitoneum. No abdominal or pelvic lymphadenopathy by size criteria. Bladder is mostly decompressed. Diffuse subcutaneous soft tissue swelling. Bones: Subacute to chronic left rib fractures are seen. Degenerative changes of the spine are seen. IMPRESSION: 1. Hepatic cirrhosis with changes of portal hypertension including collateral vasculature and splenomegaly. 2. Cholelithiasis 3. Moderate to large volume abdominal and pelvic ascites. 4. No evidence for small or large bowel obstruction. Electronically signed by: Benito Amador MD (08/24/2018 12:49 AM) [facility]
[2018-08-24] MEDS: SMZ/TMP 800/160MG TABLET. PO SCH ×3 (01:07→20:05)
[2018-08-24] MEDS: MORPHINE SULFATE 4 MG/ML VIAL. IV PRN ×5 (02:29→23:17)
[2018-08-24] MEDS ORDERED: SPIRONOLACTONE 25 MG TABLET PO SCH (09:00)
[2018-08-24] MEDS ORDERED: CIPROFLOXACIN 400MG PREMIX 200 ML IV SCH (09:00)
[2018-08-24] MEDS ORDERED: ONDANSETRON PF 4 MG/2 ML VIAL. IV PRN (09:30)
--- NOTE | 2018-08-24 09:46 | PDOC ---
Subjective: Subjective: Back with ascites again. "I somehow lost all my meds." Please see past GI consults and progress notes (most recently from last week). Objective: Vital Signs: Vital Signs Date Time Temp Pulse Resp B/P (MAP) Pulse Ox O2 Delivery O2 Flow Rate FiO2 08/24/18 07:15 98.5 127 20 122/92 (102) 96 Room Air 98.5 Labs: Laboratory Tests Test 08/23/18 23:50 08/23/18 23:56 White Blood Count 4.1 x10^3/uL Red Blood Count 2.98 x10^6/uL Hemoglobin 8.9 g/dL Hematocrit 27.5 % Mean Corpuscular Volume 92 fL Mean Corpuscular Hemoglobin 30 pg Mean Corpuscular Hemoglobin Concent 32 g/dL Red Cell Distribution Width 16.4 % Platelet Count 134 x10^3/uL Neutrophils (%) (Auto) 48 % Lymphocytes (%) (Auto) 35 % Monocytes (%) (Auto) 12 % Eosinophils (%) (Auto) 3 % Basophils (%) (Auto) 2 % Neutrophils # (Auto) 2.0 x10^3uL Lymphocytes # (Auto) 1.4 x10^3/uL Monocytes # (Auto) 0.5 x10^3/uL Eosinophils # (Auto) 0.1 x10^3/uL Basophils # (Auto) 0.1 x10^3/uL Sodium Level 133 mmol/L Potassium Level 4.5 mmol/L Chloride Level 100 mmol/L Carbon Dioxide Level 25 mmol/L Anion Gap 8 Blood Urea Nitrogen 20 mg/dL Creatinine 0.9 mg/dL Estimated GFR (Cockcroft-Gault) 87.3 BUN/Creatinine Ratio 22 Glucose Level 128 mg/dL Calcium Level 8.4 mg/dL Total Bilirubin 2.5 mg/dL Aspartate Amino Transf (AST/SGOT) 42 U/L Alanine Aminotransferase (ALT/SGPT) 25 U/L Alkaline Phosphatase 123 U/L Total Protein 7.4 g/dL Albumin 1.9 g/dL Albumin/Globulin Ratio 0.3 Lipase 592 U/L Ethyl Alcohol Level < 10 mg/dL Urine Collection Type Unknown Urine Color [place] Urine Clarity Clear Urine pH 5.0 Urine Specific [place] 1.025 Urine Protein Negative mg/dL Urine Glucose (UA) Negative mg/dL Urine Ketones (Stick) Trace mg/dL Urine Blood Large Urine Nitrite Negative Urine Bilirubin Small Urine Urobilinogen Dipstick 1.0 mg/dL Urine Leukocyte Esterase Small Urine RBC 6-10 /HPF Urine WBC 1-4 /HPF Urine Squamous Epithelial Cells Occ /LPF Urine Transitional Epithelial Cells Occ /LPF Urine Bacteria Few /HPF Urine Hyaline Casts Many /HPF Urine Mucus Mod /LPF Urine Opiates Screen Pos Urine Methadone Screen Neg Urine Barbiturates Neg Urine Phencyclidine Screen Neg Urine Amphetamine/Methamphetamine Neg Urine Benzodiazepines Screen Neg Urine Cocaine Screen Neg Urine Cannabinoids Screen Neg Urine Ethyl Alcohol Neg Imaging: CT A/P IMPRESSION: 1. Hepatic cirrhosis with changes of portal hypertension including collateral vasculature and splenomegaly. 2. Cholelithiasis 3. Moderate to large volume abdominal and pelvic ascites. 4. No evidence for small or large bowel obstruction. PE: GEN: NAD LUNGS: CTAB HEART: RRRs ABD: distended, tight EXTREMITY: BLE pitting edema NEURO/PSYCH: A & O 3 A/P: ESLD (alcohol) w/ recurrent ascites and BLE edema H/o JERROD and hyponatremia -- Will check INR and ask for paracentesis again. Has Lasix 40 mg QD and Aldactone 50mg Q48hrs ordered - will review w/ Dr. Louis. Agree w/ Xifaxan, will add lactulose like usual. VALERIA ALCOCER Aug 24, 2018 09:46
[2018-08-24 10:30] LABS: PROTHROMBIN TIME PATIENT 20.6 SEC (11.7-14.0)
[2018-08-24] MEDS ORDERED: ALBUMIN HUMAN 25% 200 ML IV ONE (13:20)
--- NOTE | 2018-08-24 14:38 | HP ---
ADMIT DATE: CHIEF COMPLAINT: Ascites. HISTORY OF PRESENT ILLNESS: A 58-year-old male known to me, known to the whole hospital because he is a frequent flyer for recurrent abdominal paracentesis. I am not sure when his last one was, but it is usually within the last 2 or 4 weeks and he would drain over a liter, usually at 2 liters if memory serves me right. In any case, the computer system is down; hence, I do not have records, but I do not think he had a recent SBP episode recently. In any case, he is just waiting for abdominal paracentesis tap, the labs are unremarkable. Total bilirubin is 2.5. Imaging does show ascites, [id number] and some signs of portal hypertension. PAST MEDICAL HISTORY: 1. Cirrhosis; previous ex-drinker, not anymore. 2. Anemia of chronic disease. PAST SURGICAL HISTORY: Recurrent paracentesis. ALLERGIES: None on file. SOCIAL HISTORY: Ex-drinker, nonsmoker, no street drugs. REVIEW OF SYSTEMS: A 14-point systems reviewed and negative otherwise per HPI and the ascites. PHYSICAL EXAMINATION: GENERAL: Awake, alert, oriented x 3, not in acute distress. LUNGS: Diminished breath sounds. ABDOMEN: Ascites, positive fluid wave, dullness to percussion. GENITALIA: Appropriate for age. EXTREMITIES: +1 edema otherwise. NEUROLOGIC AND PSYCHIATRIC: Unremarkable. ASSESSMENT: 1. Recurrent ascites for abdominal paracentesis again. 2. Anemia of chronic disease. 3. Chronic lower extremity edema. 4. Portal hypertension. 5. Hyperbilirubinemia with a total bilirubin 2.5. PLAN: I did not reinvent the wheel, I am admitting just to have fluid out and continue his home medication including Aldactone, etc. I have discussed plan of care with him and he agrees. Possibly after paracentesis, if it is large volume, might need some albumin 50 g. MEDICAL DECISION MAKING: Moderate. ALEIDA VAUGHAN MD DR: /nts JOB#: [id number] / [id number]
[2018-08-24] MEDS ORDERED: ALBUMIN HUMAN 25% 100 ML IV ONE ×2 (15:00)
[2018-08-24] MEDS: FUROSEMIDE 40 MG TABLET. PO SCH (15:45)
[2018-08-24] MEDS: LACTULOSE 20 GM/30 ML SOLUTION. PO SCH ×2 (15:45→20:04)
[2018-08-24] MEDS: HYDROcodone/APAP 5/325MG 1 TAB TABLET PO PRN ×2 (15:45→21:49)
[2018-08-24] MEDS: rifAXIMin 550 MG TABLET PO SCH ×2 (15:46→20:05)
--- NOTE | 2018-08-24 16:15 | RAD ---
Ultrasound-guided paracentesis 08/24/2018 4:11 PM Procedure: The risks and benefits of the procedure were discussed the patient. Informed consent was obtained. A timeout procedure was performed. Sonographic evaluation of the abdomen was performed demonstrating ascites . The left lower quadrant was prepped and draped using maximum sterile barrier technique. 1% lidocaine without epinephrine was administered for local anesthesia. Real-time ultrasonographic guidance was used in passing a 5 Pashto Yueh catheter into the fluid collection. 9.6 L of serous ascites was removed. The catheter was removed and pressure held to achieve hemostasis. A sterile dressing was applied. Impression: Successful ultrasound-guided paracentesis
[2018-08-25] VITALS (7 sets, daily range): BP systolic 92–126; BP diastolic 58–73
[2018-08-25 04:59] LABS: CALCIUM 7.8 mg/dL (8.5-10.1); CREATININE 1.6 mg/dL (0.7-1.3); GFR 44.9; POTASSIUM 4.3 mmol/L (3.5-5.1)
[2018-08-25] MEDS: FUROSEMIDE 40 MG TABLET. PO SCH (08:01)
[2018-08-25] MEDS: rifAXIMin 550 MG TABLET PO SCH ×2 (08:01→20:44)
[2018-08-25] MEDS: SMZ/TMP 800/160MG TABLET. PO SCH ×2 (08:01→20:44)
[2018-08-25] MEDS: LACTULOSE 20 GM/30 ML SOLUTION. PO SCH ×2 (08:02→20:44)
[2018-08-25] MEDS: HYDROcodone/APAP 5/325MG 1 TAB TABLET PO PRN (08:03)
--- NOTE | 2018-08-25 10:18 | PDOC ---
PROGRESS NOTES Chief Complaint Chief Complaint Past Medical History Cardiovascular: No pertinent hx Pulmonary: No pertinent hx GI: GERD, Peptic Ulcer disease Heme/Onc: Anemia NOS Hepatobiliary: Cirrhosis, Other Musculoskeletal: low back pain Past Surgical History Past Surgical History: Total knee replacement, Other Family History Family History: Hypertension Social History No ALCOHOL: none Drugs: None Lives: with Family History of Present Illness History of Present Illness IMPRESSION: 1. Hepatic cirrhosis with changes of portal hypertension including collateral vasculature and splenomegaly. 2. Cholelithiasis 3. Moderate to large volume abdominal and pelvic ascites. 4. JERROD- Prerenal Vs Hepatorenal 5. Multiple Paracentesis 6.ESLD- cirrhosis 7.Hyponatremia- Secondary to ESLD 8. MELD higher when calculated for Hyponatremia 9. Poor Prognosis unless gets a Liver Tx 10 ETOH Abuse hx 11.Refractory/Recurrent ascites 12.Cholelithiasis 13.microhematuria " lost all of his meds" SIDE [employer]OR MAN 08/25 NONCOMPLIANCE impaired his ability to qualify for liver transplant may benefit from peritoneo-venous shunting 9.6 L of serous ascites was removed. paracentesis 9.6 L of serous ascites was removed. fluid restriction gi following now has medicaid insurance START TELEMETRY, EKG Vitals Vitals Vital Signs Date Time Temp Pulse Resp B/P (MAP) Pulse Ox O2 Delivery O2 Flow Rate FiO2 08/25/18 09:03 14 Room Air 08/25/18 07:00 97.8 119 94/60 (71) 96 97.8 Physical Exam Physical Exam HENT: Normocephalic, atraumatic, bilateral external ears normal, oropharynx moist, no oral exudates, nose normal. [] Eyes: PERRLA, EOMI, conjunctiva normal, no discharge. [] Neck: Normal range of motion, no tenderness, supple, no stridor. [] Cardiovascular: TACHY 110 Heart rate regular rhythm, no murmur [] Lungs & Thorax: Bilateral breath sounds clear to auscultation [] Abdomen: Moderately rounded abdomen consistent with ascites. Bowel sounds normal , soft, tenderness diffusely throughout the abdomen, no masses, no pulsatile masses. [] Skin: Warm, dry, no erythema, no rash. [] Back: No tenderness, no CVA tenderness. [] Extremities: No tenderness, no cyanosis, no clubbing, ROM intact, no edema. [] Neurologic: Alert and oriented X 3, normal motor function, normal sensory function, no focal deficits noted. [] Psychologic: Affect normal, judgement normal, mood normal. [] General: Alert, Oriented X3, Cooperative Heart: Regular rate, Other (TACHY) Lungs: Clear Extremities: No cyanosis Labs LABS EXAM: CT Abdomen and Pelvis with IV contrast CLINICAL HISTORY: Abdominal pain, distension; ascites COMPARISON: 06/26/2018, 05/09/2018. TECHNIQUE: Helical CT of the abdomen and pelvis was performed following the administration of intravenous contrast. Oral contrast was administered. Axial, coronal and sagittal reformatted images were generated. PQRS compliance statement - One or more of the following individualized dose reduction techniques were utilized for this study: 1. Automated exposure control 2. Adjustment of the mA and/or kV according to patient size 3. Use of iterative reconstruction technique FINDINGS: Lower chest: Linear opacities in the middle lobe likely scarring/atelectasis. Coronary artery calcifications are seen. Abdomen and Pelvis: The liver is cirrhotic in morphology. Calcified gallstones are seen within the gallbladder. No biliary ductal dilatation. Pancreas is unremarkable. Calcified granulomas are seen within the spleen. Spleen is enlarged measuring 15 cm in length. Right-sided vascular collaterals are seen with recanalized umbilical vein. Pancreas is unremarkable. Adrenal glands are normal. No abnormal small or large bowel dilatation is seen. Fluid-filled loops of small bowel are seen measuring up to 2.7 cm in diameter. Moderate to large volume abdominal and pelvic ascites. No pneumoperitoneum. No abdominal or pelvic lymphadenopathy by size criteria. Bladder is mostly decompressed. Diffuse subcutaneous soft tissue swelling. Bones: Subacute to chronic left rib fractures are seen. Degenerative changes of the spine are seen. IMPRESSION: 1. Hepatic cirrhosis with changes of portal hypertension including collateral vasculature and splenomegaly. 2. Cholelithiasis 3. Moderate to large volume abdominal and pelvic ascites. 4. No evidence for small or large bowel obstruction. Electronically signed by: Benito Amador MD (08/24/2018 12:49 AM) [facility] SEX: M EXAM STATUS: ADM IN ORD. PHYSICIAN: VALERIA ALCOCER REASON: recurrent ascites PROCEDURE: [id number] PARACENTESIS W/IMAGING Ultrasound-guided paracentesis 08/24/2018 4:11 PM Procedure: The risks and benefits of the procedure were discussed the patient. Informed consent was obtained. A timeout procedure was performed. Sonographic evaluation of the abdomen was performed demonstrating ascites . The left lower quadrant was prepped and draped using maximum sterile barrier technique. 1% lidocaine without epinephrine was administered for local anesthesia. Real-time ultrasonographic guidance was used in passing a 5 Sami Yueh catheter into the fluid collection. 9.6 L of serous ascites was removed. The catheter was removed and pressure held to achieve hemostasis. A sterile dressing was applied. Impression: Successful ultrasound-guided paracentesis DICTATED and SIGNED BY: KIAN BROWN MD DATE: 08/24/18 1210 Laboratory Tests Test 08/25/18 03:30 Sodium Level 133 mmol/L (136-145) Potassium Level 4.3 mmol/L (3.5-5.1) Chloride Level 101 mmol/L (98-107) Carbon Dioxide Level 22 mmol/L (21-32) Anion Gap 10 (6-14) Blood Urea Nitrogen 25 mg/dL (8-26) Creatinine 1.6 mg/dL (0.7-1.3) Estimated GFR (Cockcroft-Gault) 44.9 Glucose Level 77 mg/dL (70-99) Calcium Level 7.8 mg/dL (8.5-10.1) Assessment and Plan Assessmemt and Plan Problems Medical Problems: (1) Acute pancreatitis Status: Acute (2) Ascites Status: Acute (3) ETOH abuse Status: Acute Comment Review of Relevant I have reviewed the following items arlette (where applicable) has been applied. Labs Laboratory Tests Test 08/23/18 23:50 08/23/18 23:56 08/24/18 04:30 08/24/18 10:00 White Blood Count 4.1 x10^3/uL (4.0-11.0) Red Blood Count 2.98 x10^6/uL (4.30-5.70) Hemoglobin 8.9 g/dL (13.0-17.5) Hematocrit 27.5 % (39.0-53.0) Mean Corpuscular Volume 92 fL (79-100) Mean Corpuscular Hemoglobin 30 pg (25-35) Mean Corpuscular Hemoglobin Concent 32 g/dL (31-37) Red Cell Distribution Width 16.4 % (11.5-14.5) Platelet Count 134 x10^3/uL (140-400) Neutrophils (%) (Auto) 48 % (31-73) Lymphocytes (%) (Auto) 35 % (24-48) Monocytes (%) (Auto) 12 % (0-9) Eosinophils (%) (Auto) 3 % (0-3) Basophils (%) (Auto) 2 % (0-3) Neutrophils # (Auto) 2.0 x10^3uL (1.8-7.7) Lymphocytes # (Auto) 1.4 x10^3/uL (1.0-4.8) Monocytes # (Auto) 0.5 x10^3/uL (0.0-1.1) Eosinophils # (Auto) 0.1 x10^3/uL (0.0-0.7) Basophils # (Auto) 0.1 x10^3/uL (0.0-0.2) Sodium Level 133 mmol/L (136-145) Potassium Level 4.5 mmol/L (3.5-5.1) Chloride Level 100 mmol/L (98-107) Carbon Dioxide Level 25 mmol/L (21-32) Anion Gap 8 (6-14) Blood Urea Nitrogen 20 mg/dL (8-26) Creatinine 0.9 mg/dL (0.7-1.3) Estimated GFR (Cockcroft-Gault) 87.3 BUN/Creatinine Ratio 22 (6-20) Glucose Level 128 mg/dL (70-99) Calcium Level 8.4 mg/dL (8.5-10.1) Total Bilirubin 2.5 mg/dL (0.2-1.0) Aspartate Amino Transf (AST/SGOT) 42 U/L (15-37) Alanine Aminotransferase (ALT/SGPT) 25 U/L (16-63) Alkaline Phosphatase 123 U/L (46-116) Total Protein 7.4 g/dL (6.4-8.2) Albumin 1.9 g/dL (3.4-5.0) Albumin/Globulin Ratio 0.3 (1.0-1.7) Lipase 592 U/L (73-393) Ethyl Alcohol Level < 10 mg/dL (0-10) Urine Collection Type Unknown Urine Color [place] Urine Clarity Clear Urine pH 5.0 Urine Specific [place] 1.025 Urine Protein Negative mg/dL (NEG-TRACE) Urine Glucose (UA) Negative mg/dL (NEG) Urine Ketones (Stick) Trace mg/dL (NEG) Urine Blood Large (NEG) Urine Nitrite Negative (NEG) Urine Bilirubin Small (NEG) Urine Urobilinogen Dipstick 1.0 mg/dL (0.2 mg/dL) Urine Leukocyte Esterase Small (NEG) Urine RBC 6-10 /HPF (0-2) Urine WBC 1-4 /HPF (0-4) Urine Squamous Epithelial Cells Occ /LPF Urine Transitional Epithelial Cells Occ /LPF Urine Bacteria Few /HPF (0-FEW) Urine Hyaline Casts Many /HPF Urine Mucus Mod /LPF Urine Opiates Screen Pos (NEG) Urine Methadone Screen Neg (NEG) Urine Barbiturates Neg (NEG) Urine Phencyclidine Screen Neg (NEG) Urine Amphetamine/Methamphetamine Neg (NEG) Urine Benzodiazepines Screen Neg (NEG) Urine Cocaine Screen Neg (NEG) Urine Cannabinoids Screen Neg (NEG) Urine Ethyl Alcohol Neg (NEG) Nasal Screen MRSA (PCR) Negative (Negative) Prothrombin Time 20.6 SEC (11.7-14.0) Prothromb Time International Ratio 1.8 (0.8-1.1) Activated Partial Thromboplast Time 33 SEC (24-38) Ammonia 55 mcmol/L (11-34) Test 08/25/18 03:30 Sodium Level 133 mmol/L (136-145) Potassium Level 4.3 mmol/L (3.5-5.1) Chloride Level 101 mmol/L (98-107) Carbon Dioxide Level 22 mmol/L (21-32) Anion Gap 10 (6-14) Blood Urea Nitrogen 25 mg/dL (8-26) Creatinine 1.6 mg/dL (0.7-1.3) Estimated GFR (Cockcroft-Gault) 44.9 Glucose Level 77 mg/dL (70-99) Calcium Level 7.8 mg/dL (8.5-10.1) Laboratory Tests Test 08/25/18 03:30 Sodium Level 133 mmol/L (136-145) Potassium Level 4.3 mmol/L (3.5-5.1) Chloride Level 101 mmol/L (98-107) Carbon Dioxide Level 22 mmol/L (21-32) Anion Gap 10 (6-14) Blood Urea Nitrogen 25 mg/dL (8-26) Creatinine 1.6 mg/dL (0.7-1.3) Estimated GFR (Cockcroft-Gault) 44.9 Glucose Level 77 mg/dL (70-99) Calcium Level 7.8 mg/dL (8.5-10.1) Microbiology 08/24/18 Blood Culture - Preliminary, Resulted NO GROWTH AFTER 1 DAY Medications Current Medications Morphine Sulfate (Morphine Sulfate) 4 mg 1X ONCE IV Last administered on at 00:00; Start 08/23/18 at 23:30; Stop 08/23/18 at 23:33; Status DC Ondansetron HCl (Zofran) 4 mg 1X ONCE IV Last administered on 08/23/18at 23:57 ; Start 08/23/18 at 23:30; Stop 08/23/18 at 23:33; Status DC Ondansetron HCl (Zofran) 4 mg PRN Q8HRS PRN IV NAUSEA/VOMITING; Start 08/23/18 at 23:45; Stop 08/24/18 at 09:20; Status DC Morphine Sulfate (Morphine Sulfate) 4 mg PRN Q2HR PRN IV PAIN Last administered on 08/24/18at 23:17; Start 08/23/18 at 23:45; Stop 08/24/18 at 23:44 ; Status DC Iohexol (Omnipaque 300 Mg/ml) 75 ml 1X ONCE IV Last administered on 08/23/18at 00:30; Start 08/23/18 at 23:55; Stop 08/23/18 at 23:56; Status DC Info (CONTRAST GIVEN -- Rx MONITORING) 1 each PRN DAILY PRN MC SEE COMMENTS; Start 08/23/18 at 23:55; Stop 08/25/18 at 23:54 Sodium Chloride 1,000 ml @ 125 mls/hr 1X ONCE IV Last administered on at 00:30; Start 08/24/18 at 00:30; Stop 08/24/18 at 08:29; Status DC Ciprofloxacin/ Dextrose 200 ml @ 200 mls/hr Q12HR IV ; Start 08/24/18 at 09:00 ; Stop 08/24/18 at 09:00; Status DC Ibuprofen (Motrin) 600 mg 1X ONCE PO Last administered on 08/24/18at 01:07; Start 08/24/18 at 00:45; Stop 08/24/18 at 00:46; Status DC Levofloxacin/ Dextrose 100 ml @ 100 mls/hr 1X ONCE IV ; Start 08/24/18 at 00: 45; Stop 08/24/18 at 01:44; Status UNV Trimethoprim/ Sulfamethoxazole (Bactrim Ds) 1 tab BID PO Last administered on at 08:01; Start 08/24/18 at 01:00 Ondansetron HCl (Zofran) 4 mg PRN Q6HRS PRN IV NAUSEA/VOMITING; Start 08/24/18 at 09:30 Acetaminophen/ Hydrocodone Bitart (Lortab 5/325) 1 tab PRN Q4HRS PRN PO PAIN Last administered on 08/25/18 08:03; Start 08/24/18 at 09:30 Furosemide (Lasix) 40 mg DAILY PO Last administered on 08/25/18at 08:01; Start 08/24/18 at 10:00 Rifaximin (Xifaxan) 550 mg Q12HR PO Last administered on 08/25/18 08:01; Start 08/24/18 at 10:00 Tramadol HCl (Ultram) 50 mg PRN Q6HRS PRN PO PAIN; Start 08/24/18 at 09:30 Spironolactone (Aldactone) 50 mg Q48H PO Last administered on 08/24/18at 15:45; Start 08/24/18 at 09:00 Lactulose (Lactulose) 20 gm BID PO Last administered on 08/25/18at 08:02; Start 08/24/18 at 10:00 Albumin Human 200 ml @ As Directed STK-MED ONCE IV ; Start 08/24/18 at 13:20; Stop 08/24/18 at 13:21; Status DC Albumin Human 100 ml @ 100 mls/hr 1X ONCE IV Last administered on 08/24/18at 13:30; Start 08/24/18 at 15:00; Stop 08/24/18 at 15:59; Status DC Albumin Human 100 ml @ 100 mls/hr 1X ONCE IV Last administered on 08/24/18at 14:00; Start 08/24/18 at 15:00; Stop 08/24/18 at 15:59; Status DC Active Scripts Active Lasix (Furosemide) 40 Mg Tablet 1 Tab PO DAILY Xifaxan (Rifaximin) 550 Mg Tablet 550 Mg PO Q12HR Aldactone (Spironolactone) 25 Mg Tablet 50 Mg PO QODAY Lasix (Furosemide) 20 Mg Tablet 1 Tab PO DAILY Tramadol Hcl 50 Mg Tablet 50 Mg PO Q6HRS PRN 7 Days Vitals/I & O Vital Sign - Last 24 Hours 08/24/18 08/24/18 08/24/18 08/24/18 10:52 12:45 13:45 15:00 Temp 97.8 97.5 97.8 97.5 Pulse 107 113 106 111 Resp 20 20 20 20 B/P (MAP) 103/71 (82) 115/70 (85) 102/61 (75) 108/65 (79) Pulse Ox 97 95 100 98 O2 Delivery Room Air Room Air Room Air Room Air 08/24/18 08/24/18 08/24/18 08/24/18 19:00 19:42 20:15 21:49 Temp 97.6 97.6 Pulse 100 Resp 18 15 B/P (MAP) 91/60 (70) Pulse Ox 100 98 98 98 O2 Delivery Room Air Room Air Room Air 08/24/18 08/24/18 08/24/18 08/25/18 22:47 22:54 23:17 00:07 Temp 97.8 97.8 Pulse 110 103 Resp 19 B/P (MAP) 84/51 (62) 108/73 (85) Pulse Ox 100 100 100 O2 Delivery Room Air Room Air 08/25/18 08/25/18 08/25/18 08/25/18 02:42 07:00 08:03 09:03 Temp 97.8 97.8 Pulse 100 119 Resp 17 18 14 14 B/P (MAP) 92/58 (69) 94/60 (71) Pulse Ox 99 96 O2 Delivery Room Air Room Air Room Air Room Air Intake and Output 08/24/18 08/24/18 08/25/18 15:00 23:00 07:00 Intake Total 240 ml 240 ml 200 ml Output Total 9600 ml 155 ml Balance -9360 ml 240 ml 45 ml MARQUISE CLOUD MD Aug 25, 2018 10:18
[2018-08-25] MEDS: traMADol 50 MG TABLET PO PRN ×2 (10:27→16:47)
[2018-08-25] MEDS: HYDROcodone/APAP 10/325 1 TAB TABLET PO PRN ×4 (11:38→23:57)
--- NOTE | 2018-08-25 12:45 | PDOC ---
Subjective: Subjective: Feels better after paracentesis, says moving rooms because his heart needs to be monitored. Objective: Vital Signs: Vital Signs Date Time Temp Pulse Resp B/P (MAP) Pulse Ox O2 Delivery O2 Flow Rate FiO2 08/25/18 11:38 14 Room Air 08/25/18 11:00 98.4 120 106/61 (76) 97 98.4 Labs: Laboratory Tests Test 08/25/18 03:30 Sodium Level 133 mmol/L Potassium Level 4.3 mmol/L Chloride Level 101 mmol/L Carbon Dioxide Level 22 mmol/L Anion Gap 10 Blood Urea Nitrogen 25 mg/dL Creatinine 1.6 mg/dL Estimated GFR (Cockcroft-Gault) 44.9 Glucose Level 77 mg/dL Calcium Level 7.8 mg/dL PE: GEN: NAD, walking around room gathering belongings LUNGS: room air HEART: tachycardic per chart ABD: less distended NEURO/PSYCH: A & O 3 A/P: ESLD (alcohol) w/ recurrent ascites and BLE edema - s/p paracentesis again yesterday (9.6L) JERROD -- Hold diuretics - will review w/ Dr. Louis. VALERIA ALCOCER Aug 25, 2018 12:45
--- NOTE | 2018-08-25 12:52 | EKG ---
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
[2018-08-25] MEDS: LACTOBACILLUS RHAMNOSUS GG 1 CAPSULE. PO SCH (20:44)
[2018-08-26 03:00] VITALS: BP 98/70
[2018-08-26] MEDS: traMADol 50 MG TABLET PO PRN ×2 (03:05→23:52)
[2018-08-26 07:00] VITALS: BP 107/63
[2018-08-26] MEDS: LACTULOSE 20 GM/30 ML SOLUTION. PO SCH ×2 (09:08→20:28)
[2018-08-26] MEDS: rifAXIMin 550 MG TABLET PO SCH ×2 (09:08→20:28)
[2018-08-26] MEDS: LACTOBACILLUS RHAMNOSUS GG 1 CAPSULE. PO SCH ×2 (09:08→20:28)
[2018-08-26] MEDS: SMZ/TMP 800/160MG TABLET. PO SCH ×2 (09:08→20:28)
[2018-08-26] MEDS: HYDROcodone/APAP 10/325 1 TAB TABLET PO PRN ×4 (09:09→21:18)
--- NOTE | 2018-08-26 10:24 | PDOC ---
PROGRESS NOTES Chief Complaint Chief Complaint acute renal failure NOS cirrhosis, with repeated ascites, decompensation recent EtOH use noncompliance meds "they were lost" History of Present Illness History of Present Illness 1. Hepatic cirrhosis with changes of portal hypertension including collateral vasculature and splenomegaly. 2. Cholelithiasis 3. Moderate to large volume abdominal and pelvic ascites. 4. JERROD- Prerenal Vs Hepatorenal 5. Multiple Paracentesis 6.ESLD- cirrhosis 7.Hyponatremia- Secondary to ESLD 8. MELD higher when calculated for Hyponatremia 9. Poor Prognosis unless gets a Liver Tx 10 ETOH Abuse hx 11.Refractory/Recurrent ascites 12.Cholelithiasis 13.microhematuria paracentesis 9.6 L of serous ascites was removed by IR fluid restriction gi following now has medicaid insurance Vitals Vitals Vital Signs Date Time Temp Pulse Resp B/P (MAP) Pulse Ox O2 Delivery O2 Flow Rate FiO2 08/26/18 10:09 18 Room Air 08/26/18 07:00 97.7 104 107/63 (78) 97 97.7 Physical Exam Physical Exam HENT: Normocephalic, atraumatic, bilateral external ears normal, oropharynx moist, no oral exudates, nose normal. [] Eyes: PERRLA, EOMI, conjunctiva normal, no discharge. [] Neck: Normal range of motion, no tenderness, supple, no stridor. [] Cardiovascular: TACHY 110 Heart rate regular rhythm, no murmur [] Lungs & Thorax: Bilateral breath sounds clear to auscultation [] Abdomen: Moderately rounded abdomen consistent with ascites. Bowel sounds normal , soft, tenderness diffusely throughout the abdomen, no masses, no pulsatile masses. [] Skin: Warm, dry, no erythema, no rash. [] Back: No tenderness, no CVA tenderness. [] Extremities: No tenderness, no cyanosis, no clubbing, ROM intact, no edema. [] Neurologic: Alert and oriented X 3, normal motor function, normal sensory function, no focal deficits noted. [] Psychologic: Affect normal, judgement normal, mood normal. [] General: Alert, Oriented X3, Cooperative Heart: Regular rate, Other (TACHY) Lungs: Clear Extremities: No cyanosis Assessment and Plan Assessmemt and Plan Problems Medical Problems: (1) Acute pancreatitis Status: Acute (2) Ascites Status: Acute (3) ETOH abuse Status: Acute Comment Review of Relevant I have reviewed the following items arlette (where applicable) has been applied. Labs Laboratory Tests Test 08/25/18 03:30 Sodium Level 133 mmol/L (136-145) Potassium Level 4.3 mmol/L (3.5-5.1) Chloride Level 101 mmol/L (98-107) Carbon Dioxide Level 22 mmol/L (21-32) Anion Gap 10 (6-14) Blood Urea Nitrogen 25 mg/dL (8-26) Creatinine 1.6 mg/dL (0.7-1.3) Estimated GFR (Cockcroft-Gault) 44.9 Glucose Level 77 mg/dL (70-99) Calcium Level 7.8 mg/dL (8.5-10.1) Microbiology 08/24/18 Blood Culture - Preliminary, Resulted NO GROWTH AFTER 2 DAYS Medications Current Medications Morphine Sulfate (Morphine Sulfate) 4 mg 1X ONCE IV Last administered on at 00:00; Start 08/23/18 at 23:30; Stop 08/23/18 at 23:33; Status DC Ondansetron HCl (Zofran) 4 mg 1X ONCE IV Last administered on 08/23/18at 23:57 ; Start 08/23/18 at 23:30; Stop 08/23/18 at 23:33; Status DC Ondansetron HCl (Zofran) 4 mg PRN Q8HRS PRN IV NAUSEA/VOMITING; Start 08/23/18 at 23:45; Stop 08/24/18 at 09:20; Status DC Morphine Sulfate (Morphine Sulfate) 4 mg PRN Q2HR PRN IV PAIN Last administered on 08/24/18at 23:17; Start 08/23/18 at 23:45; Stop 08/24/18 at 23:44 ; Status DC Iohexol (Omnipaque 300 Mg/ml) 75 ml 1X ONCE IV Last administered on 08/23/18at 00:30; Start 08/23/18 at 23:55; Stop 08/23/18 at 23:56; Status DC Info (CONTRAST GIVEN -- Rx MONITORING) 1 each PRN DAILY PRN MC SEE COMMENTS; Start 08/23/18 at 23:55; Stop 08/25/18 at 23:54; Status DC Sodium Chloride 1,000 ml @ 125 mls/hr 1X ONCE IV Last administered on at 00:30; Start 08/24/18 at 00:30; Stop 08/24/18 at 08:29; Status DC Ciprofloxacin/ Dextrose 200 ml @ 200 mls/hr Q12HR IV ; Start 08/24/18 at 09:00 ; Stop 08/24/18 at 09:00; Status DC Ibuprofen (Motrin) 600 mg 1X ONCE PO Last administered on 08/24/18at 01:07; Start 08/24/18 at 00:45; Stop 08/24/18 at 00:46; Status DC Levofloxacin/ Dextrose 100 ml @ 100 mls/hr 1X ONCE IV ; Start 08/24/18 at 00: 45; Stop 08/24/18 at 01:44; Status UNV Trimethoprim/ Sulfamethoxazole (Bactrim Ds) 1 tab BID PO Last administered on 09:08; Start 08/24/18 at 01:00 Ondansetron HCl (Zofran) 4 mg PRN Q6HRS PRN IV NAUSEA/VOMITING; Start 08/24/18 at 09:30 Acetaminophen/ Hydrocodone Bitart (Lortab 5/325) 1 tab PRN Q4HRS PRN PO PAIN Last administered on 08/25/18 08:03; Start 08/24/18 at 09:30; Stop 08/25/18 at 10:55; Status DC Furosemide (Lasix) 40 mg DAILY PO Last administered on 08/25/18 08:01; Start 08/24/18 at 10:00; Stop 08/25/18 at 12:46; Status DC Rifaximin (Xifaxan) 550 mg Q12HR PO Last administered on 08/26/18 09:08; Start 08/24/18 at 10:00 Tramadol HCl (Ultram) 50 mg PRN Q6HRS PRN PO MILD PAIN Last administered on 08/26 03:05; Start 08/24/18 at 09:30 Spironolactone (Aldactone) 50 mg Q48H PO Last administered on 08/24/18 15:45; Start 08/24/18 at 09:00; Stop 08/25/18 at 12:46; Status DC Lactulose (Lactulose) 20 gm BID PO Last administered on 3/1/19at 09:08; Start 08/24/18 at 10:00 Albumin Human 200 ml @ As Directed STK-MED ONCE IV ; Start 08/24/18 at 13:20; Stop 08/24/18 at 13:21; Status DC Albumin Human 100 ml @ 100 mls/hr 1X ONCE IV Last administered on 08/24/18at 13:30; Start 08/24/18 at 15:00; Stop 08/24/18 at 15:59; Status DC Albumin Human 100 ml @ 100 mls/hr 1X ONCE IV Last administered on 08/24/18at 14:00; Start 08/24/18 at 15:00; Stop 08/24/18 at 15:59; Status DC Acetaminophen/ Hydrocodone Bitart (Lortab 10/325) 1 tab PRN Q4HRS PRN PO MODERATE-SEVERE PAIN Last administered on 08/26/18at 09:09; Start 08/25/18 at 11: 00 Lactobacillus Rhamnosus (Culturelle) 1 cap BID PO Last administered on at 09:08; Start 08/25/18 at 21:00 Active Scripts Active Lasix (Furosemide) 40 Mg Tablet 1 Tab PO DAILY Xifaxan (Rifaximin) 550 Mg Tablet 550 Mg PO Q12HR Aldactone (Spironolactone) 25 Mg Tablet 50 Mg PO QODAY Lasix (Furosemide) 20 Mg Tablet 1 Tab PO DAILY Tramadol Hcl 50 Mg Tablet 50 Mg PO Q6HRS PRN 7 Days Vitals/I & O Vital Sign - Last 24 Hours 08/25/18 08/25/18 08/25/18 08/25/18 10:27 11:00 11:38 15:30 Temp 98.4 98.4 Pulse 120 Resp 14 18 14 18 B/P (MAP) 106/61 (76) Pulse Ox 97 O2 Delivery Room Air Room Air Room Air 08/25/18 08/25/18 08/25/18 08/25/18 15:43 16:47 17:33 19:00 Temp 98.1 97.5 98.1 97.5 Pulse 116 107 Resp 20 18 18 18 B/P (MAP) 106/63 (77) 96/59 (71) Pulse Ox 96 100 O2 Delivery Room Air Room Air Room Air 08/25/18 08/25/18 08/25/18 08/25/18 19:30 19:49 23:00 23:57 Temp 98.1 98.1 Pulse 116 Resp 18 B/P (MAP) 126/60 (82) Pulse Ox 98 96 O2 Delivery Room Air Room Air Room Air Room Air 08/26/18 08/26/18 08/26/18 08/26/18 00:57 03:00 03:05 04:08 Temp 97.5 97.5 Pulse 108 Resp 18 B/P (MAP) 98/70 (79) Pulse Ox 96 99 96 96 O2 Delivery Room Air Room Air Room Air 08/26/18 08/26/18 08/26/18 08/26/18 07:00 08:00 09:09 10:09 Temp 97.7 97.7 Pulse 104 Resp 16 18 18 B/P (MAP) 107/63 (78) Pulse Ox 97 O2 Delivery Room Air Room Air Room Air Room Air Intake and Output 08/25/18 08/25/18 08/26/18 15:00 23:00 07:00 Intake Total 240 ml 120 ml 720 ml Output Total 360 ml Balance -120 ml 120 ml 720 ml AAMIR GREER MD Aug 26, 2018 10:24
[2018-08-26 11:00] VITALS: BP 90/61
[2018-08-26 11:38] LABS: CALCIUM 8.2 mg/dL (8.5-10.1); CREATININE 2.1 mg/dL (0.7-1.3); GFR 32.8; POTASSIUM 5.2 mmol/L (3.5-5.1)
--- NOTE | 2018-08-26 12:32 | PDOC ---
Subjective: Subjective: Tired. Objective: Vital Signs: Vital Signs Date Time Temp Pulse Resp B/P (MAP) Pulse Ox O2 Delivery O2 Flow Rate FiO2 08/26/18 11:00 97.9 111 18 90/61 (71) 99 Room Air 97.9 Labs: Laboratory Tests Test 08/26/18 11:24 Sodium Level 127 mmol/L Potassium Level 5.2 mmol/L Chloride Level 96 mmol/L Carbon Dioxide Level 22 mmol/L Anion Gap 9 Blood Urea Nitrogen 30 mg/dL Creatinine 2.1 mg/dL Estimated GFR (Cockcroft-Gault) 32.8 Glucose Level 101 mg/dL Calcium Level 8.2 mg/dL PE: GEN: NAD ABD: distended but still softish NEURO/PSYCH: in and out of sleep A/P: ESLD w/ recurrent ascites JERROD, hyponatremia, hyperkalemia -- Diuretics on hold again. Difficult situation, not sure we can offer more here. VALERIA ALCOCER Aug 26, 2018 12:32
[2018-08-26 15:00] VITALS: BP 94/61
[2018-08-26 19:00] VITALS: BP 96/63
[2018-08-26 22:45] VITALS: BP 173/79
[2018-08-27] MEDS: HYDROcodone/APAP 10/325 1 TAB TABLET PO PRN ×4 (02:49→20:14)
[2018-08-27 03:00] VITALS: BP 115/82
[2018-08-27 07:00] VITALS: BP 119/76
[2018-08-27] MEDS: traMADol 50 MG TABLET PO PRN (08:25)
[2018-08-27] MEDS: LACTULOSE 20 GM/30 ML SOLUTION. PO SCH ×2 (08:26→20:12)
[2018-08-27] MEDS: SMZ/TMP 800/160MG TABLET. PO SCH ×2 (08:26→20:12)
[2018-08-27] MEDS: rifAXIMin 550 MG TABLET PO SCH ×2 (08:26→20:12)
[2018-08-27] MEDS: LACTOBACILLUS RHAMNOSUS GG 1 CAPSULE. PO SCH ×2 (08:26→20:12)
[2018-08-27 11:00] VITALS: BP 108/74
--- NOTE | 2018-08-27 13:25 | PDOC ---
PROGRESS NOTES Chief Complaint Chief Complaint acute renal failure NOS, but concern for hepatorenal, or ATN cirrhosis, with repeated ascites, decompensation recent EtOH use noncompliance meds weakness and debiliy History of Present Illness History of Present Illness 1. Hepatic cirrhosis with changes of portal hypertension including collateral vasculature and splenomegaly. 2. Cholelithiasis 3. Moderate to large volume abdominal and pelvic ascites. 4. JERROD- Prerenal Vs Hepatorenal 5. Multiple Paracentesis 6.ESLD- cirrhosis 7.Hyponatremia- Secondary to ESLD 8. MELD higher when calculated for Hyponatremia 9. Poor Prognosis unless gets a Liver Tx 10 ETOH Abuse hx 11.Refractory/Recurrent ascites 12.Cholelithiasis 13.microhematuria s/p paracentesis 9.6 L of serous ascites was removed by IR no with acute renal failure, this has happened before renal consult, I am unsure starting diuretics would helop gi following Vitals Vitals Vital Signs Date Time Temp Pulse Resp B/P (MAP) Pulse Ox O2 Delivery O2 Flow Rate FiO2 08/27/18 12:33 Room Air 08/27/18 11:00 98.4 103 17 108/74 (85) 97 98.4 Physical Exam Physical Exam HENT: Normocephalic, atraumatic, bilateral external ears normal, oropharynx moist, no oral exudates, nose normal. [] Eyes: PERRLA, EOMI, conjunctiva normal, no discharge. [] Neck: Normal range of motion, no tenderness, supple, no stridor. [] Cardiovascular: TACHY 110 Heart rate regular rhythm, no murmur [] Lungs & Thorax: Bilateral breath sounds clear to auscultation [] Abdomen: Moderately rounded abdomen consistent with ascites. Bowel sounds normal , soft, tenderness diffusely throughout the abdomen, no masses, no pulsatile masses. [] Skin: Warm, dry, no erythema, no rash. [] Back: No tenderness, no CVA tenderness. [] Extremities: No tenderness, no cyanosis, no clubbing, ROM intact, no edema. [] Neurologic: Alert and oriented X 3, normal motor function, normal sensory function, no focal deficits noted. [] Psychologic: Affect normal, judgement normal, mood normal. [] General: Alert, Oriented X3, Cooperative Heart: Regular rate, Other (TACHY) Lungs: Clear Extremities: No cyanosis Assessment and Plan Assessmemt and Plan Problems Medical Problems: (1) Acute pancreatitis Status: Acute (2) Ascites Status: Acute (3) ETOH abuse Status: Acute Comment Review of Relevant I have reviewed the following items arlette (where applicable) has been applied. Labs Laboratory Tests Test 08/26/18 11:24 Sodium Level 127 mmol/L (136-145) Potassium Level 5.2 mmol/L (3.5-5.1) Chloride Level 96 mmol/L (98-107) Carbon Dioxide Level 22 mmol/L (21-32) Anion Gap 9 (6-14) Blood Urea Nitrogen 30 mg/dL (8-26) Creatinine 2.1 mg/dL (0.7-1.3) Estimated GFR (Cockcroft-Gault) 32.8 Glucose Level 101 mg/dL (70-99) Calcium Level 8.2 mg/dL (8.5-10.1) Microbiology 08/24/18 Blood Culture - Preliminary, Resulted NO GROWTH AFTER 3 DAYS 08/24/18 Urine Culture - Final, Complete 08/24/18 Urine Culture Result 1 (KENDALL) - Final, Complete 08/24/18 Antimicrobic Susceptibility - Final, Complete Medications Current Medications Morphine Sulfate (Morphine Sulfate) 4 mg 1X ONCE IV Last administered on at 00:00; Start 08/23/18 at 23:30; Stop 08/23/18 at 23:33; Status DC Ondansetron HCl (Zofran) 4 mg 1X ONCE IV Last administered on 08/23/18at 23:57 ; Start 08/23/18 at 23:30; Stop 08/23/18 at 23:33; Status DC Ondansetron HCl (Zofran) 4 mg PRN Q8HRS PRN IV NAUSEA/VOMITING; Start 08/23/18 at 23:45; Stop 08/24/18 at 09:20; Status DC Morphine Sulfate (Morphine Sulfate) 4 mg PRN Q2HR PRN IV PAIN Last administered on 08/24/18at 23:17; Start 08/23/18 at 23:45; Stop 08/24/18 at 23:44 ; Status DC Iohexol (Omnipaque 300 Mg/ml) 75 ml 1X ONCE IV Last administered on 08/23/18at 00:30; Start 08/23/18 at 23:55; Stop 08/23/18 at 23:56; Status DC Info (CONTRAST GIVEN -- Rx MONITORING) 1 each PRN DAILY PRN MC SEE COMMENTS; Start 08/23/18 at 23:55; Stop 08/25/18 at 23:54; Status DC Sodium Chloride 1,000 ml @ 125 mls/hr 1X ONCE IV Last administered on at 00:30; Start 08/24/18 at 00:30; Stop 08/24/18 at 08:29; Status DC Ciprofloxacin/ Dextrose 200 ml @ 200 mls/hr Q12HR IV ; Start 08/24/18 at 09:00 ; Stop 08/24/18 at 09:00; Status DC Ibuprofen (Motrin) 600 mg 1X ONCE PO Last administered on 08/24/18at 01:07; Start 08/24/18 at 00:45; Stop 08/24/18 at 00:46; Status DC Levofloxacin/ Dextrose 100 ml @ 100 mls/hr 1X ONCE IV ; Start 08/24/18 at 00: 45; Stop 08/24/18 at 01:44; Status UNV Trimethoprim/ Sulfamethoxazole (Bactrim Ds) 1 tab BID PO Last administered on 08:26; Start 08/24/18 at 01:00 Ondansetron HCl (Zofran) 4 mg PRN Q6HRS PRN IV NAUSEA/VOMITING Last administered on 08/27/18 11:33; Start 08/24/18 at 09:30 Acetaminophen/ Hydrocodone Bitart (Lortab 5/325) 1 tab PRN Q4HRS PRN PO PAIN Last administered on 08/25/18 08:03; Start 08/24/18 at 09:30; Stop 08/25/18 at 10:55; Status DC Furosemide (Lasix) 40 mg DAILY PO Last administered on 08/25/18 08:01; Start 08/24/18 at 10:00; Stop 08/25/18 at 12:46; Status DC Rifaximin (Xifaxan) 550 mg Q12HR PO Last administered on 08/27/18 08:26; Start 08/24/18 at 10:00 Tramadol HCl (Ultram) 50 mg PRN Q6HRS PRN PO MILD PAIN Last administered on 08/27 08:25; Start 08/24/18 at 09:30 Spironolactone (Aldactone) 50 mg Q48H PO Last administered on 08/24/18at 15:45; Start 08/24/18 at 09:00; Stop 08/25/18 at 12:46; Status DC Lactulose (Lactulose) 20 gm BID PO Last administered on 08/27/18 08:26; Start 08/24/18 at 10:00 Albumin Human 200 ml @ As Directed STK-MED ONCE IV ; Start 08/24/18 at 13:20; Stop 08/24/18 at 13:21; Status DC Albumin Human 100 ml @ 100 mls/hr 1X ONCE IV Last administered on 08/24/18at 13:30; Start 08/24/18 at 15:00; Stop 08/24/18 at 15:59; Status DC Albumin Human 100 ml @ 100 mls/hr 1X ONCE IV Last administered on 08/24/18at 14:00; Start 08/24/18 at 15:00; Stop 08/24/18 at 15:59; Status DC Acetaminophen/ Hydrocodone Bitart (Lortab 10/325) 1 tab PRN Q4HRS PRN PO MODERATE-SEVERE PAIN Last administered on 08/27/18at 11:33; Start 08/25/18 at 11: 00 Lactobacillus Rhamnosus (Culturelle) 1 cap BID PO Last administered on at 08:26; Start 08/25/18 at 21:00 Active Scripts Active Lasix (Furosemide) 40 Mg Tablet 1 Tab PO DAILY Xifaxan (Rifaximin) 550 Mg Tablet 550 Mg PO Q12HR Aldactone (Spironolactone) 25 Mg Tablet 50 Mg PO QODAY Lasix (Furosemide) 20 Mg Tablet 1 Tab PO DAILY Tramadol Hcl 50 Mg Tablet 50 Mg PO Q6HRS PRN 7 Days Vitals/I & O Vital Sign - Last 24 Hours 08/26/18 08/26/18 08/26/18 08/26/18 13:25 15:00 17:15 18:09 Temp 97.8 97.8 Pulse 100 Resp 18 16 18 18 B/P (MAP) 94/61 (72) Pulse Ox 99 O2 Delivery Room Air Room Air Room Air 08/26/18 08/26/18 08/26/18 08/26/18 19:00 19:20 21:18 22:45 Temp 98.3 97.9 98.3 97.9 Pulse 98 81 Resp 18 B/P (MAP) 96/63 (74) 173/79 (110) Pulse Ox 98 98 97 O2 Delivery Room Air Room Air Room Air Room Air 08/26/18 08/27/18 08/27/18 08/27/18 23:52 00:52 02:49 03:00 Temp 98.3 98.3 Pulse 104 Resp 18 B/P (MAP) 115/82 (93) Pulse Ox 97 97 97 100 O2 Delivery Room Air Room Air Room Air 08/27/18 08/27/18 08/27/18 08/27/18 03:49 07:00 08:00 08:25 Temp 98.5 98.5 Pulse 113 Resp 18 B/P (MAP) 119/76 (90) Pulse Ox 100 97 O2 Delivery Room Air Room Air Room Air 08/27/18 08/27/18 08/27/18 08/27/18 09:25 11:00 11:33 12:33 Temp 98.4 98.4 Pulse 103 Resp 17 B/P (MAP) 108/74 (85) Pulse Ox 97 O2 Delivery Room Air Room Air Room Air Room Air Intake and Output 08/26/18 08/26/18 08/27/18 15:00 23:00 07:00 Intake Total 240 ml 180 ml 560 ml Output Total 450 ml 600 ml 400 ml Balance -210 ml -420 ml 160 ml AAMIR GREER MD Aug 27, 2018 13:25
[2018-08-27 15:00] VITALS: BP 110/68
[2018-08-27 19:00] VITALS: BP 125/74
[2018-08-27 23:01] VITALS: BP 115/66
[2018-08-28] MEDS: HYDROcodone/APAP 10/325 1 TAB TABLET PO PRN ×4 (00:13→21:03)
[2018-08-28 03:10] VITALS: BP 105/67
[2018-08-28 07:00] VITALS: BP 96/69
[2018-08-28] MEDS: LACTULOSE 20 GM/30 ML SOLUTION. PO SCH ×2 (08:27→21:03)
[2018-08-28] MEDS: rifAXIMin 550 MG TABLET PO SCH ×2 (08:27→21:03)
[2018-08-28] MEDS: LACTOBACILLUS RHAMNOSUS GG 1 CAPSULE. PO SCH ×2 (08:27→21:03)
[2018-08-28] MEDS: SMZ/TMP 800/160MG TABLET. PO SCH (08:27)
[2018-08-28 11:00] VITALS: BP 86/55
[2018-08-28 12:42] LABS: BASO % 1 % (0-3); EOS # 0.1 x10^3/uL (0.0-0.7); EOS % 4 % (0-3); HEMATOCRIT 21.8 % (39.0-53.0); HEMOGLOBIN 7.1 g/dL (13.0-17.5); LYMPH # 1.2 x10^3/uL (1.0-4.8); LYMPH % 34 % (24-48); MEAN CORPUSCULAR HEMOGLOBIN 29 pg (25-35); MEAN CORPUSCULAR HGB CONC 33 g/dL (31-37); MEAN CORPUSCULAR VOLUME 91 fL (79-100); MONO # 0.5 x10^3/uL (0.0-1.1); MONO % 14 % (0-9); NEUT # 1.7 x10^3uL (1.8-7.7); NEUT % 48 % (31-73); PLATELET COUNT 107 x10^3/uL (140-400); RED BLOOD COUNT 2.41 x10^6/uL (4.30-5.70); RED CELL DISTRIBUTION WIDTH 16.1 % (11.5-14.5); WHITE BLOOD COUNT 3.5 x10^3/uL (4.0-11.0)
--- NOTE | 2018-08-28 12:55 | PDOC ---
PROGRESS NOTES Chief Complaint Chief Complaint acute renal failure NOS, but concern for hepatorenal, or ATN cirrhosis, with repeated ascites, decompensation recent EtOH use noncompliance meds weakness and debiliy History of Present Illness History of Present Illness labs ordered late, follow renal fxn, renal consult ascites better since admit with s/p paracentesis 9.6 L of serous fluid, now i am unsure of diuretics due to kidney fxn no with acute renal failure, this has happened before gi following Vitals Vitals Vital Signs Date Time Temp Pulse Resp B/P (MAP) Pulse Ox O2 Delivery O2 Flow Rate FiO2 08/28/18 11:00 98.4 112 18 86/55 (65) 93 Room Air 98.4 Physical Exam Physical Exam HENT: Normocephalic, atraumatic, bilateral external ears normal, oropharynx moist, no oral exudates, nose normal. [] Eyes: PERRLA, EOMI, conjunctiva normal, no discharge. [] Neck: Normal range of motion, no tenderness, supple, no stridor. [] Cardiovascular: TACHY 110 Heart rate regular rhythm, no murmur [] Lungs & Thorax: Bilateral breath sounds clear to auscultation [] Abdomen: Moderately rounded abdomen consistent with ascites. Bowel sounds normal , soft, tenderness diffusely throughout the abdomen, no masses, no pulsatile masses. [] Skin: Warm, dry, no erythema, no rash. [] Back: No tenderness, no CVA tenderness. [] Extremities: No tenderness, no cyanosis, no clubbing, ROM intact, no edema. [] Neurologic: Alert and oriented X 3, normal motor function, normal sensory function, no focal deficits noted. [] Psychologic: Affect normal, judgement normal, mood normal. [] General: Alert, Oriented X3, Cooperative Heart: Regular rate, Other (TACHY) Lungs: Clear Extremities: No cyanosis Labs LABS Laboratory Tests Test 08/28/18 12:05 White Blood Count 3.5 x10^3/uL (4.0-11.0) Red Blood Count 2.41 x10^6/uL (4.30-5.70) Hemoglobin 7.1 g/dL (13.0-17.5) Hematocrit 21.8 % (39.0-53.0) Mean Corpuscular Volume 91 fL (79-100) Mean Corpuscular Hemoglobin 29 pg (25-35) Mean Corpuscular Hemoglobin Concent 33 g/dL (31-37) Red Cell Distribution Width 16.1 % (11.5-14.5) Platelet Count 107 x10^3/uL (140-400) Neutrophils (%) (Auto) 48 % (31-73) Lymphocytes (%) (Auto) 34 % (24-48) Monocytes (%) (Auto) 14 % (0-9) Eosinophils (%) (Auto) 4 % (0-3) Basophils (%) (Auto) 1 % (0-3) Neutrophils # (Auto) 1.7 x10^3uL (1.8-7.7) Lymphocytes # (Auto) 1.2 x10^3/uL (1.0-4.8) Monocytes # (Auto) 0.5 x10^3/uL (0.0-1.1) Eosinophils # (Auto) 0.1 x10^3/uL (0.0-0.7) Basophils # (Auto) 0.0 x10^3/uL (0.0-0.2) Assessment and Plan Assessmemt and Plan Problems Medical Problems: (1) Acute pancreatitis Status: Acute (2) Ascites Status: Acute (3) ETOH abuse Status: Acute Comment Review of Relevant I have reviewed the following items arlette (where applicable) has been applied. Labs Laboratory Tests Test 08/28/18 12:05 White Blood Count 3.5 x10^3/uL (4.0-11.0) Red Blood Count 2.41 x10^6/uL (4.30-5.70) Hemoglobin 7.1 g/dL (13.0-17.5) Hematocrit 21.8 % (39.0-53.0) Mean Corpuscular Volume 91 fL (79-100) Mean Corpuscular Hemoglobin 29 pg (25-35) Mean Corpuscular Hemoglobin Concent 33 g/dL (31-37) Red Cell Distribution Width 16.1 % (11.5-14.5) Platelet Count 107 x10^3/uL (140-400) Neutrophils (%) (Auto) 48 % (31-73) Lymphocytes (%) (Auto) 34 % (24-48) Monocytes (%) (Auto) 14 % (0-9) Eosinophils (%) (Auto) 4 % (0-3) Basophils (%) (Auto) 1 % (0-3) Neutrophils # (Auto) 1.7 x10^3uL (1.8-7.7) Lymphocytes # (Auto) 1.2 x10^3/uL (1.0-4.8) Monocytes # (Auto) 0.5 x10^3/uL (0.0-1.1) Eosinophils # (Auto) 0.1 x10^3/uL (0.0-0.7) Basophils # (Auto) 0.0 x10^3/uL (0.0-0.2) Laboratory Tests Test 08/28/18 12:05 White Blood Count 3.5 x10^3/uL (4.0-11.0) Red Blood Count 2.41 x10^6/uL (4.30-5.70) Hemoglobin 7.1 g/dL (13.0-17.5) Hematocrit 21.8 % (39.0-53.0) Mean Corpuscular Volume 91 fL (79-100) Mean Corpuscular Hemoglobin 29 pg (25-35) Mean Corpuscular Hemoglobin Concent 33 g/dL (31-37) Red Cell Distribution Width 16.1 % (11.5-14.5) Platelet Count 107 x10^3/uL (140-400) Neutrophils (%) (Auto) 48 % (31-73) Lymphocytes (%) (Auto) 34 % (24-48) Monocytes (%) (Auto) 14 % (0-9) Eosinophils (%) (Auto) 4 % (0-3) Basophils (%) (Auto) 1 % (0-3) Neutrophils # (Auto) 1.7 x10^3uL (1.8-7.7) Lymphocytes # (Auto) 1.2 x10^3/uL (1.0-4.8) Monocytes # (Auto) 0.5 x10^3/uL (0.0-1.1) Eosinophils # (Auto) 0.1 x10^3/uL (0.0-0.7) Basophils # (Auto) 0.0 x10^3/uL (0.0-0.2) Microbiology 08/24/18 Blood Culture - Preliminary, Resulted NO GROWTH AFTER 4 DAYS 08/24/18 Urine Culture - Final, Complete 08/24/18 Urine Culture Result 1 (KENDALL) - Final, Complete 08/24/18 Antimicrobic Susceptibility - Final, Complete Medications Current Medications Morphine Sulfate (Morphine Sulfate) 4 mg 1X ONCE IV Last administered on at 00:00; Start 08/23/18 at 23:30; Stop 08/23/18 at 23:33; Status DC Ondansetron HCl (Zofran) 4 mg 1X ONCE IV Last administered on 08/23/18at 23:57 ; Start 08/23/18 at 23:30; Stop 08/23/18 at 23:33; Status DC Ondansetron HCl (Zofran) 4 mg PRN Q8HRS PRN IV NAUSEA/VOMITING; Start 08/23/18 at 23:45; Stop 08/24/18 at 09:20; Status DC Morphine Sulfate (Morphine Sulfate) 4 mg PRN Q2HR PRN IV PAIN Last administered on 08/24/18at 23:17; Start 08/23/18 at 23:45; Stop 08/24/18 at 23:44 ; Status DC Iohexol (Omnipaque 300 Mg/ml) 75 ml 1X ONCE IV Last administered on 08/23/18at 00:30; Start 08/23/18 at 23:55; Stop 08/23/18 at 23:56; Status DC Info (CONTRAST GIVEN -- Rx MONITORING) 1 each PRN DAILY PRN MC SEE COMMENTS; Start 08/23/18 at 23:55; Stop 08/25/18 at 23:54; Status DC Sodium Chloride 1,000 ml @ 125 mls/hr 1X ONCE IV Last administered on at 00:30; Start 08/24/18 at 00:30; Stop 08/24/18 at 08:29; Status DC Ciprofloxacin/ Dextrose 200 ml @ 200 mls/hr Q12HR IV ; Start 08/24/18 at 09:00 ; Stop 08/24/18 at 09:00; Status DC Ibuprofen (Motrin) 600 mg 1X ONCE PO Last administered on 08/24/18at 01:07; Start 08/24/18 at 00:45; Stop 08/24/18 at 00:46; Status DC Levofloxacin/ Dextrose 100 ml @ 100 mls/hr 1X ONCE IV ; Start 08/24/18 at 00: 45; Stop 08/24/18 at 01:44; Status UNV Trimethoprim/ Sulfamethoxazole (Bactrim Ds) 1 tab BID PO Last administered on 08:27; Start 08/24/18 at 01:00 Ondansetron HCl (Zofran) 4 mg PRN Q6HRS PRN IV NAUSEA/VOMITING Last administered on 08/27/18 11:33; Start 08/24/18 at 09:30 Acetaminophen/ Hydrocodone Bitart (Lortab 5/325) 1 tab PRN Q4HRS PRN PO PAIN Last administered on 08/25/18 08:03; Start 08/24/18 at 09:30; Stop 08/25/18 at 10:55; Status DC Furosemide (Lasix) 40 mg DAILY PO Last administered on 08/25/18 08:01; Start 08/24/18 at 10:00; Stop 08/25/18 at 12:46; Status DC Rifaximin (Xifaxan) 550 mg Q12HR PO Last administered on 08/28/18 08:27; Start 08/24/18 at 10:00 Tramadol HCl (Ultram) 50 mg PRN Q6HRS PRN PO MILD PAIN Last administered on 08/27 08:25; Start 08/24/18 at 09:30 Spironolactone (Aldactone) 50 mg Q48H PO Last administered on 08/24/18 15:45; Start 08/24/18 at 09:00; Stop 08/25/18 at 12:46; Status DC Lactulose (Lactulose) 20 gm BID PO Last administered on 08/28/18 08:27; Start 08/24/18 at 10:00 Albumin Human 200 ml @ As Directed STK-MED ONCE IV ; Start 08/24/18 at 13:20; Stop 08/24/18 at 13:21; Status DC Albumin Human 100 ml @ 100 mls/hr 1X ONCE IV Last administered on 08/24/18 13:30; Start 08/24/18 at 15:00; Stop 08/24/18 at 15:59; Status DC Albumin Human 100 ml @ 100 mls/hr 1X ONCE IV Last administered on 08/24/18at 14:00; Start 08/24/18 at 15:00; Stop 08/24/18 at 15:59; Status DC Acetaminophen/ Hydrocodone Bitart (Lortab 10/325) 1 tab PRN Q4HRS PRN PO MODERATE-SEVERE PAIN Last administered on 08/28/18at 08:27; Start 08/25/18 at 11: 00 Lactobacillus Rhamnosus (Culturelle) 1 cap BID PO Last administered on at 08:27; Start 08/25/18 at 21:00 Active Scripts Active Lasix (Furosemide) 40 Mg Tablet 1 Tab PO DAILY Xifaxan (Rifaximin) 550 Mg Tablet 550 Mg PO Q12HR Aldactone (Spironolactone) 25 Mg Tablet 50 Mg PO QODAY Lasix (Furosemide) 20 Mg Tablet 1 Tab PO DAILY Tramadol Hcl 50 Mg Tablet 50 Mg PO Q6HRS PRN 7 Days Vitals/I & O Vital Sign - Last 24 Hours 08/27/18 08/27/18 08/27/18 08/27/18 15:00 16:13 19:00 19:31 Temp 98.2 96.9 98.2 96.9 Pulse 113 71 Resp 18 20 B/P (MAP) 110/68 (82) 125/74 (91) Pulse Ox 99 100 O2 Delivery Room Air Room Air Room Air Room Air 08/27/18 08/27/18 08/28/18 08/28/18 20:14 23:01 00:13 01:13 Temp 98.3 98.3 Pulse 65 Resp 20 B/P (MAP) 115/66 (82) Pulse Ox 100 98 98 98 O2 Delivery Room Air Room Air Room Air 08/28/18 08/28/18 08/28/18 08/28/18 03:10 07:00 08:00 08:27 Temp 98.0 98.3 98.0 98.3 Pulse 103 103 Resp 20 18 B/P (MAP) 105/67 (80) 96/69 (78) Pulse Ox 95 95 O2 Delivery Room Air Room Air Room Air Room Air 08/28/18 08/28/18 09:27 11:00 Temp 98.4 98.4 Pulse 112 Resp 18 B/P (MAP) 86/55 (65) Pulse Ox 93 O2 Delivery Room Air Room Air Intake and Output 08/27/18 08/27/18 08/28/18 15:00 23:00 07:00 Intake Total 300 ml 920 ml Output Total 500 ml 100 ml Balance 300 ml 420 ml -100 ml AAMIR GREER MD Aug 28, 2018 12:55
[2018-08-28 12:57] LABS: ALBUMIN 2.1 g/dL (3.4-5.0); ALBUMIN/GLOBULIN RATIO 0.5 (1.0-1.7); CALCIUM 8.5 mg/dL (8.5-10.1); CREATININE 1.9 mg/dL (0.7-1.3); GFR 36.9; POTASSIUM 5.5 mmol/L (3.5-5.1); TOTAL BILIRUBIN 1.3 mg/dL (0.2-1.0); TOTAL PROTEIN 6.4 g/dL (6.4-8.2)
[2018-08-28 15:00] VITALS: BP 93/64
[2018-08-28 19:00] VITALS: BP 123/83
[2018-08-28 23:00] VITALS: BP 112/80
[2018-08-29] VITALS (13 sets, daily range): BP systolic 82–120; BP diastolic 58–77
[2018-08-29] MEDS: HYDROcodone/APAP 10/325 1 TAB TABLET PO PRN ×4 (02:41→20:59)
[2018-08-29 07:28] LABS: BASO % 1 % (0-3); EOS # 0.1 x10^3/uL (0.0-0.7); EOS % 5 % (0-3); HEMATOCRIT 21.1 % (39.0-53.0); LYMPH # 1.2 x10^3/uL (1.0-4.8); LYMPH % 41 % (24-48); MEAN CORPUSCULAR HEMOGLOBIN 30 pg (25-35); MEAN CORPUSCULAR HGB CONC 33 g/dL (31-37); MEAN CORPUSCULAR VOLUME 90 fL (79-100); MONO # 0.4 x10^3/uL (0.0-1.1); MONO % 15 % (0-9); NEUT # 1.1 x10^3uL (1.8-7.7); NEUT % 38 % (31-73); PLATELET COUNT 98 x10^3/uL (140-400); RED BLOOD COUNT 2.34 x10^6/uL (4.30-5.70); RED CELL DISTRIBUTION WIDTH 15.7 % (11.5-14.5); WHITE BLOOD COUNT 2.9 x10^3/uL (4.0-11.0)
[2018-08-29 07:33] LABS: HEMOGLOBIN 6.9 g/dL (13.0-17.5)
[2018-08-29 07:39] LABS: ALBUMIN 1.8 g/dL (3.4-5.0); ALBUMIN/GLOBULIN RATIO 0.4 (1.0-1.7); CALCIUM 8.4 mg/dL (8.5-10.1); CREATININE 1.6 mg/dL (0.7-1.3); GFR 44.9; POTASSIUM 5.4 mmol/L (3.5-5.1); TOTAL BILIRUBIN 1.1 mg/dL (0.2-1.0); TOTAL PROTEIN 5.9 g/dL (6.4-8.2)
--- NOTE | 2018-08-29 08:16 | PDOC ---
PROGRESS NOTES Chief Complaint Chief Complaint acute renal failure NOS, but concern for hepatorenal, or ATN cirrhosis, with repeated ascites, decompensation recent EtOH use noncompliance meds weakness and debiliy History of Present Illness History of Present Illness Mr Thompson is a 58 yo M w/ PMHx cirrhosis with ascites multiple admissions This time admitted on 08/23 with abdominal distension Undergoes paracentesis, most recent 08/24 ascites better since admit with s/p paracentesis 9.6 L of serous fluid, now i am unsure of diuretics due to kidney fxn now with acute renal failure, this has happened before Hb 6.9 this morning, 1u PRBC ordered. He and his ex- feel his abdomen is more swollen today than when he came into the hospital. States his pain is not well controlled. A/P: Transfuse 1u PRBC GI following Nephrology consulted today Vitals Vitals Vital Signs Date Time Temp Pulse Resp B/P (MAP) Pulse Ox O2 Delivery O2 Flow Rate FiO2 08/29/18 03:05 97.5 115 20 120/77 (91) 99 Room Air 97.5 Physical Exam Physical Exam HENT: Normocephalic, atraumatic, bilateral external ears normal, oropharynx moist, no oral exudates, nose normal. [] Eyes: PERRLA, EOMI, conjunctiva normal, no discharge. [] Neck: Normal range of motion, no tenderness, supple, no stridor. [] Cardiovascular: TACHY 110 Heart rate regular rhythm, no murmur [] Lungs & Thorax: Bilateral breath sounds clear to auscultation [] Abdomen: Moderately rounded abdomen consistent with ascites. Bowel sounds normal , soft, tenderness diffusely throughout the abdomen, no masses, no pulsatile masses. [] Skin: Warm, dry, no erythema, no rash. [] Back: No tenderness, no CVA tenderness. [] Extremities: No tenderness, no cyanosis, no clubbing, ROM intact, no edema. [] Neurologic: Alert and oriented X 3, normal motor function, normal sensory function, no focal deficits noted. [] Psychologic: Affect normal, judgement normal, mood normal. [] General: Alert, Oriented X3, Cooperative Heart: Regular rate, Other (TACHY) Lungs: Clear Extremities: No cyanosis Labs LABS Laboratory Tests Test 08/28/18 12:05 08/28/18 23:20 08/29/18 06:50 White Blood Count 3.5 x10^3/uL (4.0-11.0) 2.9 x10^3/uL (4.0-11.0) Red Blood Count 2.41 x10^6/uL (4.30-5.70) 2.34 x10^6/uL (4.30-5.70) Hemoglobin 7.1 g/dL (13.0-17.5) 6.9 g/dL (13.0-17.5) Hematocrit 21.8 % (39.0-53.0) 21.1 % (39.0-53.0) Mean Corpuscular Volume 91 fL (79-100) 90 fL (79-100) Mean Corpuscular Hemoglobin 29 pg (25-35) 30 pg (25-35) Mean Corpuscular Hemoglobin Concent 33 g/dL (31-37) 33 g/dL (31-37) Red Cell Distribution Width 16.1 % (11.5-14.5) 15.7 % (11.5-14.5) Platelet Count 107 x10^3/uL (140-400) 98 x10^3/uL (140-400) Neutrophils (%) (Auto) 48 % (31-73) 38 % (31-73) Lymphocytes (%) (Auto) 34 % (24-48) 41 % (24-48) Monocytes (%) (Auto) 14 % (0-9) 15 % (0-9) Eosinophils (%) (Auto) 4 % (0-3) 5 % (0-3) Basophils (%) (Auto) 1 % (0-3) 1 % (0-3) Neutrophils # (Auto) 1.7 x10^3uL (1.8-7.7) 1.1 x10^3uL (1.8-7.7) Lymphocytes # (Auto) 1.2 x10^3/uL (1.0-4.8) 1.2 x10^3/uL (1.0-4.8) Monocytes # (Auto) 0.5 x10^3/uL (0.0-1.1) 0.4 x10^3/uL (0.0-1.1) Eosinophils # (Auto) 0.1 x10^3/uL (0.0-0.7) 0.1 x10^3/uL (0.0-0.7) Basophils # (Auto) 0.0 x10^3/uL (0.0-0.2) 0.0 x10^3/uL (0.0-0.2) Sodium Level 128 mmol/L (136-145) 128 mmol/L (136-145) Potassium Level 5.5 mmol/L (3.5-5.1) 5.4 mmol/L (3.5-5.1) Chloride Level 96 mmol/L (98-107) 97 mmol/L (98-107) Carbon Dioxide Level 22 mmol/L (21-32) 24 mmol/L (21-32) Anion Gap 10 (6-14) 7 (6-14) Blood Urea Nitrogen 30 mg/dL (8-26) 25 mg/dL (8-26) Creatinine 1.9 mg/dL (0.7-1.3) 1.6 mg/dL (0.7-1.3) Estimated GFR (Cockcroft-Gault) 36.9 44.9 BUN/Creatinine Ratio 16 (6-20) 16 (6-20) Glucose Level 91 mg/dL (70-99) 99 mg/dL (70-99) Calcium Level 8.5 mg/dL (8.5-10.1) 8.4 mg/dL (8.5-10.1) Total Bilirubin 1.3 mg/dL (0.2-1.0) 1.1 mg/dL (0.2-1.0) Aspartate Amino Transf (AST/SGOT) 36 U/L (15-37) 31 U/L (15-37) Alanine Aminotransferase (ALT/SGPT) 20 U/L (16-63) 20 U/L (16-63) Alkaline Phosphatase 78 U/L (46-116) 87 U/L (46-116) Total Protein 6.4 g/dL (6.4-8.2) 5.9 g/dL (6.4-8.2) Albumin 2.1 g/dL (3.4-5.0) 1.8 g/dL (3.4-5.0) Albumin/Globulin Ratio 0.5 (1.0-1.7) 0.4 (1.0-1.7) Lactic Acid Level 2.7 mmol/L (0.4-2.0) 1.5 mmol/L (0.4-2.0) Assessment and Plan Assessmemt and Plan Problems Medical Problems: (1) Acute pancreatitis Status: Acute (2) Ascites Status: Acute (3) ETOH abuse Status: Acute Comment Review of Relevant I have reviewed the following items arlette (where applicable) has been applied. Labs Laboratory Tests Test 08/28/18 12:05 08/28/18 23:20 08/29/18 06:50 White Blood Count 3.5 x10^3/uL (4.0-11.0) 2.9 x10^3/uL (4.0-11.0) Red Blood Count 2.41 x10^6/uL (4.30-5.70) 2.34 x10^6/uL (4.30-5.70) Hemoglobin 7.1 g/dL (13.0-17.5) 6.9 g/dL (13.0-17.5) Hematocrit 21.8 % (39.0-53.0) 21.1 % (39.0-53.0) Mean Corpuscular Volume 91 fL (79-100) 90 fL (79-100) Mean Corpuscular Hemoglobin 29 pg (25-35) 30 pg (25-35) Mean Corpuscular Hemoglobin Concent 33 g/dL (31-37) 33 g/dL (31-37) Red Cell Distribution Width 16.1 % (11.5-14.5) 15.7 % (11.5-14.5) Platelet Count 107 x10^3/uL (140-400) 98 x10^3/uL (140-400) Neutrophils (%) (Auto) 48 % (31-73) 38 % (31-73) Lymphocytes (%) (Auto) 34 % (24-48) 41 % (24-48) Monocytes (%) (Auto) 14 % (0-9) 15 % (0-9) Eosinophils (%) (Auto) 4 % (0-3) 5 % (0-3) Basophils (%) (Auto) 1 % (0-3) 1 % (0-3) Neutrophils # (Auto) 1.7 x10^3uL (1.8-7.7) 1.1 x10^3uL (1.8-7.7) Lymphocytes # (Auto) 1.2 x10^3/uL (1.0-4.8) 1.2 x10^3/uL (1.0-4.8) Monocytes # (Auto) 0.5 x10^3/uL (0.0-1.1) 0.4 x10^3/uL (0.0-1.1) Eosinophils # (Auto) 0.1 x10^3/uL (0.0-0.7) 0.1 x10^3/uL (0.0-0.7) Basophils # (Auto) 0.0 x10^3/uL (0.0-0.2) 0.0 x10^3/uL (0.0-0.2) Sodium Level 128 mmol/L (136-145) 128 mmol/L (136-145) Potassium Level 5.5 mmol/L (3.5-5.1) 5.4 mmol/L (3.5-5.1) Chloride Level 96 mmol/L (98-107) 97 mmol/L (98-107) Carbon Dioxide Level 22 mmol/L (21-32) 24 mmol/L (21-32) Anion Gap 10 (6-14) 7 (6-14) Blood Urea Nitrogen 30 mg/dL (8-26) 25 mg/dL (8-26) Creatinine 1.9 mg/dL (0.7-1.3) 1.6 mg/dL (0.7-1.3) Estimated GFR (Cockcroft-Gault) 36.9 44.9 BUN/Creatinine Ratio 16 (6-20) 16 (6-20) Glucose Level 91 mg/dL (70-99) 99 mg/dL (70-99) Calcium Level 8.5 mg/dL (8.5-10.1) 8.4 mg/dL (8.5-10.1) Total Bilirubin 1.3 mg/dL (0.2-1.0) 1.1 mg/dL (0.2-1.0) Aspartate Amino Transf (AST/SGOT) 36 U/L (15-37) 31 U/L (15-37) Alanine Aminotransferase (ALT/SGPT) 20 U/L (16-63) 20 U/L (16-63) Alkaline Phosphatase 78 U/L (46-116) 87 U/L (46-116) Total Protein 6.4 g/dL (6.4-8.2) 5.9 g/dL (6.4-8.2) Albumin 2.1 g/dL (3.4-5.0) 1.8 g/dL (3.4-5.0) Albumin/Globulin Ratio 0.5 (1.0-1.7) 0.4 (1.0-1.7) Lactic Acid Level 2.7 mmol/L (0.4-2.0) 1.5 mmol/L (0.4-2.0) Laboratory Tests Test 08/28/18 12:05 08/28/18 23:20 08/29/18 06:50 White Blood Count 3.5 x10^3/uL (4.0-11.0) 2.9 x10^3/uL (4.0-11.0) Red Blood Count 2.41 x10^6/uL (4.30-5.70) 2.34 x10^6/uL (4.30-5.70) Hemoglobin 7.1 g/dL (13.0-17.5) 6.9 g/dL (13.0-17.5) Hematocrit 21.8 % (39.0-53.0) 21.1 % (39.0-53.0) Mean Corpuscular Volume 91 fL (79-100) 90 fL (79-100) Mean Corpuscular Hemoglobin 29 pg (25-35) 30 pg (25-35) Mean Corpuscular Hemoglobin Concent 33 g/dL (31-37) 33 g/dL (31-37) Red Cell Distribution Width 16.1 % (11.5-14.5) 15.7 % (11.5-14.5) Platelet Count 107 x10^3/uL (140-400) 98 x10^3/uL (140-400) Neutrophils (%) (Auto) 48 % (31-73) 38 % (31-73) Lymphocytes (%) (Auto) 34 % (24-48) 41 % (24-48) Monocytes (%) (Auto) 14 % (0-9) 15 % (0-9) Eosinophils (%) (Auto) 4 % (0-3) 5 % (0-3) Basophils (%) (Auto) 1 % (0-3) 1 % (0-3) Neutrophils # (Auto) 1.7 x10^3uL (1.8-7.7) 1.1 x10^3uL (1.8-7.7) Lymphocytes # (Auto) 1.2 x10^3/uL (1.0-4.8) 1.2 x10^3/uL (1.0-4.8) Monocytes # (Auto) 0.5 x10^3/uL (0.0-1.1) 0.4 x10^3/uL (0.0-1.1) Eosinophils # (Auto) 0.1 x10^3/uL (0.0-0.7) 0.1 x10^3/uL (0.0-0.7) Basophils # (Auto) 0.0 x10^3/uL (0.0-0.2) 0.0 x10^3/uL (0.0-0.2) Sodium Level 128 mmol/L (136-145) 128 mmol/L (136-145) Potassium Level 5.5 mmol/L (3.5-5.1) 5.4 mmol/L (3.5-5.1) Chloride Level 96 mmol/L (98-107) 97 mmol/L (98-107) Carbon Dioxide Level 22 mmol/L (21-32) 24 mmol/L (21-32) Anion Gap 10 (6-14) 7 (6-14) Blood Urea Nitrogen 30 mg/dL (8-26) 25 mg/dL (8-26) Creatinine 1.9 mg/dL (0.7-1.3) 1.6 mg/dL (0.7-1.3) Estimated GFR (Cockcroft-Gault) 36.9 44.9 BUN/Creatinine Ratio 16 (6-20) 16 (6-20) Glucose Level 91 mg/dL (70-99) 99 mg/dL (70-99) Calcium Level 8.5 mg/dL (8.5-10.1) 8.4 mg/dL (8.5-10.1) Total Bilirubin 1.3 mg/dL (0.2-1.0) 1.1 mg/dL (0.2-1.0) Aspartate Amino Transf (AST/SGOT) 36 U/L (15-37) 31 U/L (15-37) Alanine Aminotransferase (ALT/SGPT) 20 U/L (16-63) 20 U/L (16-63) Alkaline Phosphatase 78 U/L (46-116) 87 U/L (46-116) Total Protein 6.4 g/dL (6.4-8.2) 5.9 g/dL (6.4-8.2) Albumin 2.1 g/dL (3.4-5.0) 1.8 g/dL (3.4-5.0) Albumin/Globulin Ratio 0.5 (1.0-1.7) 0.4 (1.0-1.7) Lactic Acid Level 2.7 mmol/L (0.4-2.0) 1.5 mmol/L (0.4-2.0) Microbiology 08/24/18 Blood Culture - Final, Complete NO GROWTH AFTER 5 DAYS 08/24/18 Urine Culture - Final, Complete 08/24/18 Urine Culture Result 1 (KENDALL) - Final, Complete 08/24/18 Antimicrobic Susceptibility - Final, Complete Medications Current Medications Morphine Sulfate (Morphine Sulfate) 4 mg 1X ONCE IV Last administered on at 00:00; Start 08/23/18 at 23:30; Stop 08/23/18 at 23:33; Status DC Ondansetron HCl (Zofran) 4 mg 1X ONCE IV Last administered on 08/23/18at 23:57 ; Start 08/23/18 at 23:30; Stop 08/23/18 at 23:33; Status DC Ondansetron HCl (Zofran) 4 mg PRN Q8HRS PRN IV NAUSEA/VOMITING; Start 08/23/18 at 23:45; Stop 08/24/18 at 09:20; Status DC Morphine Sulfate (Morphine Sulfate) 4 mg PRN Q2HR PRN IV PAIN Last administered on 08/24/18at 23:17; Start 08/23/18 at 23:45; Stop 08/24/18 at 23:44 ; Status DC Iohexol (Omnipaque 300 Mg/ml) 75 ml 1X ONCE IV Last administered on 08/23/18at 00:30; Start 08/23/18 at 23:55; Stop 08/23/18 at 23:56; Status DC Info (CONTRAST GIVEN -- Rx MONITORING) 1 each PRN DAILY PRN MC SEE COMMENTS; Start 08/23/18 at 23:55; Stop 08/25/18 at 23:54; Status DC Sodium Chloride 1,000 ml @ 125 mls/hr 1X ONCE IV Last administered on at 00:30; Start 08/24/18 at 00:30; Stop 08/24/18 at 08:29; Status DC Ciprofloxacin/ Dextrose 200 ml @ 200 mls/hr Q12HR IV ; Start 08/24/18 at 09:00 ; Stop 08/24/18 at 09:00; Status DC Ibuprofen (Motrin) 600 mg 1X ONCE PO Last administered on 08/24/18at 01:07; Start 08/24/18 at 00:45; Stop 08/24/18 at 00:46; Status DC Levofloxacin/ Dextrose 100 ml @ 100 mls/hr 1X ONCE IV ; Start 08/24/18 at 00: 45; Stop 08/24/18 at 01:44; Status UNV Trimethoprim/ Sulfamethoxazole (Bactrim Ds) 1 tab BID PO Last administered on at 08:27; Start 08/24/18 at 01:00; Stop 08/28/18 at 15:06; Status DC Ondansetron HCl (Zofran) 4 mg PRN Q6HRS PRN IV NAUSEA/VOMITING Last administered on 08/27/18at 11:33; Start 08/24/18 at 09:30 Acetaminophen/ Hydrocodone Bitart (Lortab 5/325) 1 tab PRN Q4HRS PRN PO PAIN Last administered on 08/25/18at 08:03; Start 08/24/18 at 09:30; Stop 08/25/18 at 10:55; Status DC Furosemide (Lasix) 40 mg DAILY PO Last administered on 08/25/18at 08:01; Start 08/24/18 at 10:00; Stop 08/25/18 at 12:46; Status DC Rifaximin (Xifaxan) 550 mg Q12HR PO Last administered on 08/28/18 21:03; Start 08/24/18 at 10:00 Tramadol HCl (Ultram) 50 mg PRN Q6HRS PRN PO MILD PAIN Last administered on 08/27 08:25; Start 08/24/18 at 09:30 Spironolactone (Aldactone) 50 mg Q48H PO Last administered on 08/24/18 15:45; Start 08/24/18 at 09:00; Stop 08/25/18 at 12:46; Status DC Lactulose (Lactulose) 20 gm BID PO Last administered on 08/28/18 21:03; Start 08/24/18 at 10:00 Albumin Human 200 ml @ As Directed STK-MED ONCE IV ; Start 08/24/18 at 13:20; Stop 08/24/18 at 13:21; Status DC Albumin Human 100 ml @ 100 mls/hr 1X ONCE IV Last administered on 08/24/18 13:30; Start 08/24/18 at 15:00; Stop 08/24/18 at 15:59; Status DC Albumin Human 100 ml @ 100 mls/hr 1X ONCE IV Last administered on 08/24/18at 14:00; Start 08/24/18 at 15:00; Stop 08/24/18 at 15:59; Status DC Acetaminophen/ Hydrocodone Bitart (Lortab 10/325) 1 tab PRN Q4HRS PRN PO MODERATE-SEVERE PAIN Last administered on 08/29/18 02:41; Start 08/25/18 at 11: 00 Lactobacillus Rhamnosus (Culturelle) 1 cap BID PO Last administered on 21:03; Start 08/25/18 at 21:00 Linezolid/Dextrose 300 ml @ 300 mls/hr Q12HR IV Last administered on 08/28/18 21:36; Start 08/28/18 at 15:30 Active Scripts Active Lasix (Furosemide) 40 Mg Tablet 1 Tab PO DAILY Xifaxan (Rifaximin) 550 Mg Tablet 550 Mg PO Q12HR Aldactone (Spironolactone) 25 Mg Tablet 50 Mg PO QODAY Lasix (Furosemide) 20 Mg Tablet 1 Tab PO DAILY Tramadol Hcl 50 Mg Tablet 50 Mg PO Q6HRS PRN 7 Days Vitals/I & O Vital Sign - Last 24 Hours 08/28/18 08/28/18 08/28/18 08/28/18 08:27 11:00 15:00 15:36 Temp 98.4 97.6 98.4 97.6 Pulse 112 105 Resp 18 17 16 B/P (MAP) 86/55 (65) 93/64 (74) Pulse Ox 93 96 O2 Delivery Room Air Room Air Room Air Room Air 08/28/18 08/28/18 08/28/18 08/28/18 16:36 19:00 21:00 21:03 Temp 97.6 97.6 Pulse 120 Resp 20 20 B/P (MAP) 123/83 (96) Pulse Ox 96 O2 Delivery Room Air Room Air Room Air Room Air 08/28/18 08/28/18 08/29/18 08/29/18 22:00 23:00 02:41 03:05 Temp 98.0 97.5 98.0 97.5 Pulse 109 115 Resp 20 20 20 20 B/P (MAP) 112/80 (91) 120/77 (91) Pulse Ox 97 99 O2 Delivery Room Air Room Air Room Air Intake and Output 08/28/18 08/28/18 08/29/18 14:59 22:59 06:59 Intake Total 1360 ml 760 ml Output Total 800 ml Balance 1360 ml 760 ml -800 ml CHARLES EMERSON MD Aug 29, 2018 08:16
[2018-08-29] MEDS: rifAXIMin 550 MG TABLET PO SCH ×2 (08:47→20:52)
[2018-08-29] MEDS: LACTOBACILLUS RHAMNOSUS GG 1 CAPSULE. PO SCH ×2 (08:47→20:53)
[2018-08-29] MEDS: LACTULOSE 20 GM/30 ML SOLUTION. PO SCH ×2 (08:47→20:53)
--- NOTE | 2018-08-29 10:21 | PDOC ---
Subjective: Subjective: "Just another day in paradise." Denies bleeding but "they're talking about a transfusion." Asked how abdomen was feeling and if he felt like he needed another paracentesis - "I'm sure I do." Objective: Objective: Reviewed chart - refusing transfusion until ex- here. No stools charted. Vital Signs: Vital Signs Date Time Temp Pulse Resp B/P (MAP) Pulse Ox O2 Delivery O2 Flow Rate FiO2 08/29/18 09:00 98.2 104 97/58 (71) 93 Room Air 98.2 08/29/18 08:47 18 Labs: Laboratory Tests Test 08/28/18 12:05 08/28/18 23:20 08/29/18 06:50 White Blood Count 3.5 x10^3/uL 2.9 x10^3/uL Red Blood Count 2.41 x10^6/uL 2.34 x10^6/uL Hemoglobin 7.1 g/dL 6.9 g/dL Hematocrit 21.8 % 21.1 % Mean Corpuscular Volume 91 fL 90 fL Mean Corpuscular Hemoglobin 29 pg 30 pg Mean Corpuscular Hemoglobin Concent 33 g/dL 33 g/dL Red Cell Distribution Width 16.1 % 15.7 % Platelet Count 107 x10^3/uL 98 x10^3/uL Neutrophils (%) (Auto) 48 % 38 % Lymphocytes (%) (Auto) 34 % 41 % Monocytes (%) (Auto) 14 % 15 % Eosinophils (%) (Auto) 4 % 5 % Basophils (%) (Auto) 1 % 1 % Neutrophils # (Auto) 1.7 x10^3uL 1.1 x10^3uL Lymphocytes # (Auto) 1.2 x10^3/uL 1.2 x10^3/uL Monocytes # (Auto) 0.5 x10^3/uL 0.4 x10^3/uL Eosinophils # (Auto) 0.1 x10^3/uL 0.1 x10^3/uL Basophils # (Auto) 0.0 x10^3/uL 0.0 x10^3/uL Sodium Level 128 mmol/L 128 mmol/L Potassium Level 5.5 mmol/L 5.4 mmol/L Chloride Level 96 mmol/L 97 mmol/L Carbon Dioxide Level 22 mmol/L 24 mmol/L Anion Gap 10 7 Blood Urea Nitrogen 30 mg/dL 25 mg/dL Creatinine 1.9 mg/dL 1.6 mg/dL Estimated GFR (Cockcroft-Gault) 36.9 44.9 BUN/Creatinine Ratio 16 16 Glucose Level 91 mg/dL 99 mg/dL Calcium Level 8.5 mg/dL 8.4 mg/dL Total Bilirubin 1.3 mg/dL 1.1 mg/dL Aspartate Amino Transf (AST/SGOT) 36 U/L 31 U/L Alanine Aminotransferase (ALT/SGPT) 20 U/L 20 U/L Alkaline Phosphatase 78 U/L 87 U/L Total Protein 6.4 g/dL 5.9 g/dL Albumin 2.1 g/dL 1.8 g/dL Albumin/Globulin Ratio 0.5 0.4 Lactic Acid Level 2.7 mmol/L 1.5 mmol/L URINE CULTURE Final Final report URINE CULTURE RES 1 Final Enterococcus faecalis BLOOD CULTURE Final NO GROWTH AFTER 5 DAYS PE: GEN: NAD - picking tele stickers off LUNGS: room air ABD: distended EXTREMITY: BLE edema NEURO/PSYCH: awake and alert, doesn't say much A/P: ESLD w/ recurrent ascites and BLE edema and intermittent/mild encephalopathy - on lactulose and Xifaxan, has declined palliative discussion in the past, always wants to wait for ex- to get here JERROD (better) w/ hyponatremia (chronic) and hyperkalemia - diuretics held, on fluid and Na restriction UTI - on IV atbx Leukopenia, anemia, thrombocytopenia, coagulopathy Non-compliance, +alcohol last admission -- Difficult situation, continue same per GI. MELD 25. Not a transplant or TIPS candidate. Paracentesis PRN. VALERIA ALCOCER Aug 29, 2018 10:21
[2018-08-29] MEDS ORDERED: ACETAMINOPHEN 325 MG TABLET. PO ONE (11:45)
[2018-08-29] MEDS ORDERED: diphenhydrAMINE HCL 25 MG CAPSULE PO ONE (11:45)
--- NOTE | 2018-08-29 12:31 | PDOC2 ---
CONSULT Date of Consult Date of Consult DATE: 08/29/18 TIME: 12:20 Reason for Consult Reason for Consult: JERROD , Identification/Chief Complaint Chief Complaint States Vomiting x1 "ask your Nurses what's going on" Source Source: Chart review, Patient History of Present Illness Reason for Visit: Mr Thompson is a 58 yo M w/ PMHx cirrhosis with ascites multiple admissions This time admitted on 08/23 with abdominal distension Undergoes paracentesis, most recent 08/24 Denies any complaints, states you can ask your Nurse what's going on Past Medical History Cardiovascular: No pertinent hx Pulmonary: No pertinent hx GI: GERD, Peptic Ulcer disease Heme/Onc: Anemia NOS Hepatobiliary: Cirrhosis, Other Musculoskeletal: low back pain Past Surgical History Past Surgical History: Total knee replacement, Other Family History Family History: Hypertension Social History ALCOHOL: none Drugs: None Lives: with Family Current Problem List Problem List Problems Medical Problems: (1) Acute pancreatitis Status: Acute (2) Ascites Status: Acute (3) ETOH abuse Status: Acute Current Medications Current Medications Current Medications Morphine Sulfate (Morphine Sulfate) 4 mg 1X ONCE IV Last administered on at 00:00; Start 08/23/18 at 23:30; Stop 08/23/18 at 23:33; Status DC Ondansetron HCl (Zofran) 4 mg 1X ONCE IV Last administered on 08/23/18at 23:57 ; Start 08/23/18 at 23:30; Stop 08/23/18 at 23:33; Status DC Ondansetron HCl (Zofran) 4 mg PRN Q8HRS PRN IV NAUSEA/VOMITING; Start 08/23/18 at 23:45; Stop 08/24/18 at 09:20; Status DC Morphine Sulfate (Morphine Sulfate) 4 mg PRN Q2HR PRN IV PAIN Last administered on 08/24/18at 23:17; Start 08/23/18 at 23:45; Stop 08/24/18 at 23:44 ; Status DC Iohexol (Omnipaque 300 Mg/ml) 75 ml 1X ONCE IV Last administered on 08/23/18at 00:30; Start 08/23/18 at 23:55; Stop 08/23/18 at 23:56; Status DC Info (CONTRAST GIVEN -- Rx MONITORING) 1 each PRN DAILY PRN MC SEE COMMENTS; Start 08/23/18 at 23:55; Stop 08/25/18 at 23:54; Status DC Sodium Chloride 1,000 ml @ 125 mls/hr 1X ONCE IV Last administered on at 00:30; Start 08/24/18 at 00:30; Stop 08/24/18 at 08:29; Status DC Ciprofloxacin/ Dextrose 200 ml @ 200 mls/hr Q12HR IV ; Start 08/24/18 at 09:00 ; Stop 08/24/18 at 09:00; Status DC Ibuprofen (Motrin) 600 mg 1X ONCE PO Last administered on 08/24/18at 01:07; Start 08/24/18 at 00:45; Stop 08/24/18 at 00:46; Status DC Levofloxacin/ Dextrose 100 ml @ 100 mls/hr 1X ONCE IV ; Start 08/24/18 at 00: 45; Stop 08/24/18 at 01:44; Status UNV Trimethoprim/ Sulfamethoxazole (Bactrim Ds) 1 tab BID PO Last administered on 08:27; Start 08/24/18 at 01:00; Stop 08/28/18 at 15:06; Status DC Ondansetron HCl (Zofran) 4 mg PRN Q6HRS PRN IV NAUSEA/VOMITING Last administered on 08/27/18 11:33; Start 08/24/18 at 09:30 Acetaminophen/ Hydrocodone Bitart (Lortab 5/325) 1 tab PRN Q4HRS PRN PO PAIN Last administered on 08/25/18 08:03; Start 08/24/18 at 09:30; Stop 08/25/18 at 10:55; Status DC Furosemide (Lasix) 40 mg DAILY PO Last administered on 08/25/18 08:01; Start 08/24/18 at 10:00; Stop 08/25/18 at 12:46; Status DC Rifaximin (Xifaxan) 550 mg Q12HR PO Last administered on 08/29/18 08:47; Start 08/24/18 at 10:00 Tramadol HCl (Ultram) 50 mg PRN Q6HRS PRN PO MILD PAIN Last administered on 08/27 08:25; Start 08/24/18 at 09:30 Spironolactone (Aldactone) 50 mg Q48H PO Last administered on 08/24/18 15:45; Start 08/24/18 at 09:00; Stop 08/25/18 at 12:46; Status DC Lactulose (Lactulose) 20 gm BID PO Last administered on 08/29/18 08:47; Start 08/24/18 at 10:00 Albumin Human 200 ml @ As Directed STK-MED ONCE IV ; Start 08/24/18 at 13:20; Stop 08/24/18 at 13:21; Status DC Albumin Human 100 ml @ 100 mls/hr 1X ONCE IV Last administered on 08/24/18at 13:30; Start 08/24/18 at 15:00; Stop 08/24/18 at 15:59; Status DC Albumin Human 100 ml @ 100 mls/hr 1X ONCE IV Last administered on 08/24/18at 14:00; Start 08/24/18 at 15:00; Stop 08/24/18 at 15:59; Status DC Acetaminophen/ Hydrocodone Bitart (Lortab 10/325) 1 tab PRN Q4HRS PRN PO MODERATE-SEVERE PAIN Last administered on 08/29/18 08:47; Start 08/25/18 at 11: 00 Lactobacillus Rhamnosus (Culturelle) 1 cap BID PO Last administered on 08:47; Start 08/25/18 at 21:00 Linezolid/Dextrose 300 ml @ 300 mls/hr Q12HR IV Last administered on 08/29/18 08:47; Start 08/28/18 at 15:30 Diphenhydramine HCl (Benadryl) 25 mg 1X ONCE PO Last administered on 08/29/18 11:14; Start 08/29/18 at 11:45; Stop 08/29/18 at 11:46; Status DC Acetaminophen (Tylenol) 650 mg 1X ONCE PO Last administered on 08/29/18 11:14 ; Start 08/29/18 at 11:45; Stop 08/29/18 at 11:46; Status DC Active Scripts Active Lasix (Furosemide) 40 Mg Tablet 1 Tab PO DAILY Xifaxan (Rifaximin) 550 Mg Tablet 550 Mg PO Q12HR Aldactone (Spironolactone) 25 Mg Tablet 50 Mg PO QODAY Lasix (Furosemide) 20 Mg Tablet 1 Tab PO DAILY Tramadol Hcl 50 Mg Tablet 50 Mg PO Q6HRS PRN 7 Days Allergies Allergies: Coded Allergies: Penicillins (Verified Allergy, Severe, ANPHYLAXIS, 05/30/18) trovafloxacin (Verified Allergy, Severe, Anaphylaxis, 05/30/18) Anaphylactic Influenza Virus Vaccines (Verified Allergy, Intermediate, 06/16/18) ROS Review of System As per HPI Physical Exam Physical Exam General: Alert, Oriented X3, Cooperative, No acute distress HEENT: Atraumatic, PERRLA, EOMI, Mucous membr. moist/pink Neck Supple Lungs: Clear to auscultation, Normal air movement Heart: S1S2, RRR, no gallops, no murmurs Abdomen: Normal bowel sounds, distended, ascites+, Extremities: , edema +, Bilat LE Skin: No rashes, Neuro:Grossly Normal No horan Vital Signs Vital Signs Date Time Temp Pulse Resp B/P (MAP) Pulse Ox O2 Delivery O2 Flow Rate FiO2 08/29/18 11:47 97.7 98 20 95/65 97.7 08/29/18 11:00 100 Room Air Assessment & Plan JERROD- Prerenal Vs Hepatorenal S/P Multiple Paracentesis, Hypotensive Most recent 08/24 - 9.6 lts JERROD at every admission post paracentesis Monitor , continue to hold diuretics ESLD- cirrhosis Multiple Paracentesis on lactulose and Xifaxan, has declined palliative discussion in the past, always wants to wait for ex- to get here UTI - on IV atbx Hyponatremia- Secondary to ESLD MELD higher when calculated for Hyponatremia Not a transplant or TIPS candidate as per GI . Anemia- Hgb<7 PRBC ordered by primary ETOH Abuse Refractory/Recurrent ascites CT 08/23 - 1. Hepatic cirrhosis with changes of portal hypertension including collateral vasculature and splenomegaly. 2. Cholelithiasis 3. Moderate to large volume abdominal and pelvic ascites. 4. No evidence for small or large bowel obstruction. Labs Labs Laboratory Tests Test 08/28/18 12:05 08/28/18 23:20 08/29/18 06:50 White Blood Count 3.5 x10^3/uL (4.0-11.0) 2.9 x10^3/uL (4.0-11.0) Red Blood Count 2.41 x10^6/uL (4.30-5.70) 2.34 x10^6/uL (4.30-5.70) Hemoglobin 7.1 g/dL (13.0-17.5) 6.9 g/dL (13.0-17.5) Hematocrit 21.8 % (39.0-53.0) 21.1 % (39.0-53.0) Mean Corpuscular Volume 91 fL (79-100) 90 fL (79-100) Mean Corpuscular Hemoglobin 29 pg (25-35) 30 pg (25-35) Mean Corpuscular Hemoglobin Concent 33 g/dL (31-37) 33 g/dL (31-37) Red Cell Distribution Width 16.1 % (11.5-14.5) 15.7 % (11.5-14.5) Platelet Count 107 x10^3/uL (140-400) 98 x10^3/uL (140-400) Neutrophils (%) (Auto) 48 % (31-73) 38 % (31-73) Lymphocytes (%) (Auto) 34 % (24-48) 41 % (24-48) Monocytes (%) (Auto) 14 % (0-9) 15 % (0-9) Eosinophils (%) (Auto) 4 % (0-3) 5 % (0-3) Basophils (%) (Auto) 1 % (0-3) 1 % (0-3) Neutrophils # (Auto) 1.7 x10^3uL (1.8-7.7) 1.1 x10^3uL (1.8-7.7) Lymphocytes # (Auto) 1.2 x10^3/uL (1.0-4.8) 1.2 x10^3/uL (1.0-4.8) Monocytes # (Auto) 0.5 x10^3/uL (0.0-1.1) 0.4 x10^3/uL (0.0-1.1) Eosinophils # (Auto) 0.1 x10^3/uL (0.0-0.7) 0.1 x10^3/uL (0.0-0.7) Basophils # (Auto) 0.0 x10^3/uL (0.0-0.2) 0.0 x10^3/uL (0.0-0.2) Sodium Level 128 mmol/L (136-145) 128 mmol/L (136-145) Potassium Level 5.5 mmol/L (3.5-5.1) 5.4 mmol/L (3.5-5.1) Chloride Level 96 mmol/L (98-107) 97 mmol/L (98-107) Carbon Dioxide Level 22 mmol/L (21-32) 24 mmol/L (21-32) Anion Gap 10 (6-14) 7 (6-14) Blood Urea Nitrogen 30 mg/dL (8-26) 25 mg/dL (8-26) Creatinine 1.9 mg/dL (0.7-1.3) 1.6 mg/dL (0.7-1.3) Estimated GFR (Cockcroft-Gault) 36.9 44.9 BUN/Creatinine Ratio 16 (6-20) 16 (6-20) Glucose Level 91 mg/dL (70-99) 99 mg/dL (70-99) Calcium Level 8.5 mg/dL (8.5-10.1) 8.4 mg/dL (8.5-10.1) Total Bilirubin 1.3 mg/dL (0.2-1.0) 1.1 mg/dL (0.2-1.0) Aspartate Amino Transf (AST/SGOT) 36 U/L (15-37) 31 U/L (15-37) Alanine Aminotransferase (ALT/SGPT) 20 U/L (16-63) 20 U/L (16-63) Alkaline Phosphatase 78 U/L (46-116) 87 U/L (46-116) Total Protein 6.4 g/dL (6.4-8.2) 5.9 g/dL (6.4-8.2) Albumin 2.1 g/dL (3.4-5.0) 1.8 g/dL (3.4-5.0) Albumin/Globulin Ratio 0.5 (1.0-1.7) 0.4 (1.0-1.7) Lactic Acid Level 2.7 mmol/L (0.4-2.0) 1.5 mmol/L (0.4-2.0) Laboratory Tests Test 08/28/18 23:20 08/29/18 06:50 Lactic Acid Level 2.7 mmol/L (0.4-2.0) 1.5 mmol/L (0.4-2.0) White Blood Count 2.9 x10^3/uL (4.0-11.0) Red Blood Count 2.34 x10^6/uL (4.30-5.70) Hemoglobin 6.9 g/dL (13.0-17.5) Hematocrit 21.1 % (39.0-53.0) Mean Corpuscular Volume 90 fL (79-100) Mean Corpuscular Hemoglobin 30 pg (25-35) Mean Corpuscular Hemoglobin Concent 33 g/dL (31-37) Red Cell Distribution Width 15.7 % (11.5-14.5) Platelet Count 98 x10^3/uL (140-400) Neutrophils (%) (Auto) 38 % (31-73) Lymphocytes (%) (Auto) 41 % (24-48) Monocytes (%) (Auto) 15 % (0-9) Eosinophils (%) (Auto) 5 % (0-3) Basophils (%) (Auto) 1 % (0-3) Neutrophils # (Auto) 1.1 x10^3uL (1.8-7.7) Lymphocytes # (Auto) 1.2 x10^3/uL (1.0-4.8) Monocytes # (Auto) 0.4 x10^3/uL (0.0-1.1) Eosinophils # (Auto) 0.1 x10^3/uL (0.0-0.7) Basophils # (Auto) 0.0 x10^3/uL (0.0-0.2) Sodium Level 128 mmol/L (136-145) Potassium Level 5.4 mmol/L (3.5-5.1) Chloride Level 97 mmol/L (98-107) Carbon Dioxide Level 24 mmol/L (21-32) Anion Gap 7 (6-14) Blood Urea Nitrogen 25 mg/dL (8-26) Creatinine 1.6 mg/dL (0.7-1.3) Estimated GFR (Cockcroft-Gault) 44.9 BUN/Creatinine Ratio 16 (6-20) Glucose Level 99 mg/dL (70-99) Calcium Level 8.4 mg/dL (8.5-10.1) Total Bilirubin 1.1 mg/dL (0.2-1.0) Aspartate Amino Transf (AST/SGOT) 31 U/L (15-37) Alanine Aminotransferase (ALT/SGPT) 20 U/L (16-63) Alkaline Phosphatase 87 U/L (46-116) Total Protein 5.9 g/dL (6.4-8.2) Albumin 1.8 g/dL (3.4-5.0) Albumin/Globulin Ratio 0.4 (1.0-1.7) Review All relevant outside records, renal labs, imaging studies, telemetry/EKG's were reviewed. ALIX BYRD MD Aug 29, 2018 12:31
[2018-08-30] MEDS: HYDROcodone/APAP 10/325 1 TAB TABLET PO PRN ×5 (01:32→21:05)
[2018-08-30 03:00] VITALS: BP 99/54
[2018-08-30 06:44] LABS: BASO # 0.1 x10^3/uL (0.0-0.2); BASO % 2 % (0-3); EOS # 0.1 x10^3/uL (0.0-0.7); EOS % 5 % (0-3); HEMATOCRIT 27.1 % (39.0-53.0); HEMOGLOBIN 8.9 g/dL (13.0-17.5); LYMPH # 1.3 x10^3/uL (1.0-4.8); LYMPH % 49 % (24-48); MEAN CORPUSCULAR HEMOGLOBIN 30 pg (25-35); MEAN CORPUSCULAR HGB CONC 33 g/dL (31-37); MEAN CORPUSCULAR VOLUME 91 fL (79-100); MONO # 0.4 x10^3/uL (0.0-1.1); MONO % 13 % (0-9); NEUT # 0.8 x10^3uL (1.8-7.7); NEUT % 31 % (31-73); PLATELET COUNT 88 x10^3/uL (140-400); RED BLOOD COUNT 2.99 x10^6/uL (4.30-5.70); RED CELL DISTRIBUTION WIDTH 15.8 % (11.5-14.5); WHITE BLOOD COUNT 2.7 x10^3/uL (4.0-11.0)
[2018-08-30 07:00] VITALS: BP 99/67
[2018-08-30] MEDS: LACTULOSE 20 GM/30 ML SOLUTION. PO SCH ×2 (08:29→21:05)
[2018-08-30] MEDS: rifAXIMin 550 MG TABLET PO SCH ×2 (08:30→21:05)
[2018-08-30] MEDS: LACTOBACILLUS RHAMNOSUS GG 1 CAPSULE. PO SCH ×2 (08:30→21:05)
--- NOTE | 2018-08-30 08:45 | PDOC ---
PROGRESS NOTES Chief Complaint Chief Complaint acute renal failure NOS, but concern for hepatorenal, or ATN cirrhosis, with repeated ascites, decompensation recent EtOH use noncompliance meds weakness and debiliy History of Present Illness History of Present Illness Mr Thompson is a 58 yo M w/ PMHx cirrhosis with ascites multiple admissions This time admitted on 08/23 with abdominal distension Undergoes paracentesis, most recent 08/24 ascites better since admit with s/p paracentesis 9.6 L of serous fluid, now i am unsure of diuretics due to kidney fxn now with acute renal failure, this has happened before 08/29: Hb 6.9 this morning, 1u PRBC ordered. He and his ex- feel his abdomen is more swollen today than when he came into the hospital. States his pain is not well controlled. Hb to 8.9 after transfusion. Lactate normalized today. Cr. down to 1.6. WBC 2.7 with ANC < 1000, afebrile. A/P: Neutropenic precautions. May need to remain inpatient, monitor his CBC Cont linezolid for his enterococcal UTI, unfortunately his PCN and quinolone allergies preclude any other treatment and his JERROD prevented vancomycin therapy Transfused 1u PRBC with good effect GI following Nephrology consulted today Vitals Vitals Vital Signs Date Time Temp Pulse Resp B/P (MAP) Pulse Ox O2 Delivery O2 Flow Rate FiO2 08/30/18 08:29 18 Room Air 08/30/18 07:00 97.9 100 99/67 (78) 97.9 08/30/18 03:00 96 Physical Exam Physical Exam HENT: Normocephalic, atraumatic, bilateral external ears normal, oropharynx moist, no oral exudates, nose normal. [] Eyes: PERRLA, EOMI, conjunctiva normal, no discharge. [] Neck: Normal range of motion, no tenderness, supple, no stridor. [] Cardiovascular: TACHY 110 Heart rate regular rhythm, no murmur [] Lungs & Thorax: Bilateral breath sounds clear to auscultation [] Abdomen: Moderately rounded abdomen consistent with ascites. Bowel sounds normal , soft, tenderness diffusely throughout the abdomen, no masses, no pulsatile masses. [] Skin: Warm, dry, no erythema, no rash. [] Back: No tenderness, no CVA tenderness. [] Extremities: No tenderness, no cyanosis, no clubbing, ROM intact, no edema. [] Neurologic: Alert and oriented X 3, normal motor function, normal sensory function, no focal deficits noted. [] Psychologic: Affect normal, judgement normal, mood normal. [] General: Alert, Oriented X3, Cooperative Heart: Regular rate, Other (TACHY) Lungs: Clear Extremities: No cyanosis Labs LABS Laboratory Tests Test 08/30/18 06:30 White Blood Count 2.7 x10^3/uL (4.0-11.0) Red Blood Count 2.99 x10^6/uL (4.30-5.70) Hemoglobin 8.9 g/dL (13.0-17.5) Hematocrit 27.1 % (39.0-53.0) Mean Corpuscular Volume 91 fL (79-100) Mean Corpuscular Hemoglobin 30 pg (25-35) Mean Corpuscular Hemoglobin Concent 33 g/dL (31-37) Red Cell Distribution Width 15.8 % (11.5-14.5) Platelet Count 88 x10^3/uL (140-400) Neutrophils (%) (Auto) 31 % (31-73) Lymphocytes (%) (Auto) 49 % (24-48) Monocytes (%) (Auto) 13 % (0-9) Eosinophils (%) (Auto) 5 % (0-3) Basophils (%) (Auto) 2 % (0-3) Neutrophils # (Auto) 0.8 x10^3uL (1.8-7.7) Lymphocytes # (Auto) 1.3 x10^3/uL (1.0-4.8) Monocytes # (Auto) 0.4 x10^3/uL (0.0-1.1) Eosinophils # (Auto) 0.1 x10^3/uL (0.0-0.7) Basophils # (Auto) 0.1 x10^3/uL (0.0-0.2) Assessment and Plan Assessmemt and Plan Problems Medical Problems: (1) Acute pancreatitis Status: Acute (2) Ascites Status: Acute (3) ETOH abuse Status: Acute Comment Review of Relevant I have reviewed the following items arlette (where applicable) has been applied. Labs Laboratory Tests Test 08/28/18 12:05 08/28/18 23:20 08/29/18 06:50 08/30/18 06:30 White Blood Count 3.5 x10^3/uL (4.0-11.0) 2.9 x10^3/uL (4.0-11.0) 2.7 x10^3/uL (4.0-11.0) Red Blood Count 2.41 x10^6/uL (4.30-5.70) 2.34 x10^6/uL (4.30-5.70) 2.99 x10^6/uL (4.30-5.70) Hemoglobin 7.1 g/dL (13.0-17.5) 6.9 g/dL (13.0-17.5) 8.9 g/dL (13.0-17.5) Hematocrit 21.8 % (39.0-53.0) 21.1 % (39.0-53.0) 27.1 % (39.0-53.0) Mean Corpuscular Volume 91 fL (79-100) 90 fL (79-100) 91 fL (79-100) Mean Corpuscular Hemoglobin 29 pg (25-35) 30 pg (25-35) 30 pg (25-35) Mean Corpuscular Hemoglobin Concent 33 g/dL (31-37) 33 g/dL (31-37) 33 g/dL (31-37) Red Cell Distribution Width 16.1 % (11.5-14.5) 15.7 % (11.5-14.5) 15.8 % (11.5-14.5) Platelet Count 107 x10^3/uL (140-400) 98 x10^3/uL (140-400) 88 x10^3/uL (140-400) Neutrophils (%) (Auto) 48 % (31-73) 38 % (31-73) 31 % (31-73) Lymphocytes (%) (Auto) 34 % (24-48) 41 % (24-48) 49 % (24-48) Monocytes (%) (Auto) 14 % (0-9) 15 % (0-9) 13 % (0-9) Eosinophils (%) (Auto) 4 % (0-3) 5 % (0-3) 5 % (0-3) Basophils (%) (Auto) 1 % (0-3) 1 % (0-3) 2 % (0-3) Neutrophils # (Auto) 1.7 x10^3uL (1.8-7.7) 1.1 x10^3uL (1.8-7.7) 0.8 x10^3uL (1.8-7.7) Lymphocytes # (Auto) 1.2 x10^3/uL (1.0-4.8) 1.2 x10^3/uL (1.0-4.8) 1.3 x10^3/uL (1.0-4.8) Monocytes # (Auto) 0.5 x10^3/uL (0.0-1.1) 0.4 x10^3/uL (0.0-1.1) 0.4 x10^3/uL (0.0-1.1) Eosinophils # (Auto) 0.1 x10^3/uL (0.0-0.7) 0.1 x10^3/uL (0.0-0.7) 0.1 x10^3/uL (0.0-0.7) Basophils # (Auto) 0.0 x10^3/uL (0.0-0.2) 0.0 x10^3/uL (0.0-0.2) 0.1 x10^3/uL (0.0-0.2) Sodium Level 128 mmol/L (136-145) 128 mmol/L (136-145) Potassium Level 5.5 mmol/L (3.5-5.1) 5.4 mmol/L (3.5-5.1) Chloride Level 96 mmol/L (98-107) 97 mmol/L (98-107) Carbon Dioxide Level 22 mmol/L (21-32) 24 mmol/L (21-32) Anion Gap 10 (6-14) 7 (6-14) Blood Urea Nitrogen 30 mg/dL (8-26) 25 mg/dL (8-26) Creatinine 1.9 mg/dL (0.7-1.3) 1.6 mg/dL (0.7-1.3) Estimated GFR (Cockcroft-Gault) 36.9 44.9 BUN/Creatinine Ratio 16 (6-20) 16 (6-20) Glucose Level 91 mg/dL (70-99) 99 mg/dL (70-99) Calcium Level 8.5 mg/dL (8.5-10.1) 8.4 mg/dL (8.5-10.1) Total Bilirubin 1.3 mg/dL (0.2-1.0) 1.1 mg/dL (0.2-1.0) Aspartate Amino Transf (AST/SGOT) 36 U/L (15-37) 31 U/L (15-37) Alanine Aminotransferase (ALT/SGPT) 20 U/L (16-63) 20 U/L (16-63) Alkaline Phosphatase 78 U/L (46-116) 87 U/L (46-116) Total Protein 6.4 g/dL (6.4-8.2) 5.9 g/dL (6.4-8.2) Albumin 2.1 g/dL (3.4-5.0) 1.8 g/dL (3.4-5.0) Albumin/Globulin Ratio 0.5 (1.0-1.7) 0.4 (1.0-1.7) Lactic Acid Level 2.7 mmol/L (0.4-2.0) 1.5 mmol/L (0.4-2.0) Laboratory Tests Test 08/30/18 06:30 White Blood Count 2.7 x10^3/uL (4.0-11.0) Red Blood Count 2.99 x10^6/uL (4.30-5.70) Hemoglobin 8.9 g/dL (13.0-17.5) Hematocrit 27.1 % (39.0-53.0) Mean Corpuscular Volume 91 fL (79-100) Mean Corpuscular Hemoglobin 30 pg (25-35) Mean Corpuscular Hemoglobin Concent 33 g/dL (31-37) Red Cell Distribution Width 15.8 % (11.5-14.5) Platelet Count 88 x10^3/uL (140-400) Neutrophils (%) (Auto) 31 % (31-73) Lymphocytes (%) (Auto) 49 % (24-48) Monocytes (%) (Auto) 13 % (0-9) Eosinophils (%) (Auto) 5 % (0-3) Basophils (%) (Auto) 2 % (0-3) Neutrophils # (Auto) 0.8 x10^3uL (1.8-7.7) Lymphocytes # (Auto) 1.3 x10^3/uL (1.0-4.8) Monocytes # (Auto) 0.4 x10^3/uL (0.0-1.1) Eosinophils # (Auto) 0.1 x10^3/uL (0.0-0.7) Basophils # (Auto) 0.1 x10^3/uL (0.0-0.2) Microbiology 08/24/18 Blood Culture - Final, Complete NO GROWTH AFTER 5 DAYS 08/24/18 Urine Culture - Final, Complete 08/24/18 Urine Culture Result 1 (KENDALL) - Final, Complete 08/24/18 Antimicrobic Susceptibility - Final, Complete Medications Current Medications Morphine Sulfate (Morphine Sulfate) 4 mg 1X ONCE IV Last administered on at 00:00; Start 08/23/18 at 23:30; Stop 08/23/18 at 23:33; Status DC Ondansetron HCl (Zofran) 4 mg 1X ONCE IV Last administered on 08/23/18at 23:57 ; Start 08/23/18 at 23:30; Stop 08/23/18 at 23:33; Status DC Ondansetron HCl (Zofran) 4 mg PRN Q8HRS PRN IV NAUSEA/VOMITING; Start 08/23/18 at 23:45; Stop 08/24/18 at 09:20; Status DC Morphine Sulfate (Morphine Sulfate) 4 mg PRN Q2HR PRN IV PAIN Last administered on 08/24/18at 23:17; Start 08/23/18 at 23:45; Stop 08/24/18 at 23:44 ; Status DC Iohexol (Omnipaque 300 Mg/ml) 75 ml 1X ONCE IV Last administered on 08/23/18at 00:30; Start 08/23/18 at 23:55; Stop 08/23/18 at 23:56; Status DC Info (CONTRAST GIVEN -- Rx MONITORING) 1 each PRN DAILY PRN MC SEE COMMENTS; Start 08/23/18 at 23:55; Stop 08/25/18 at 23:54; Status DC Sodium Chloride 1,000 ml @ 125 mls/hr 1X ONCE IV Last administered on 00:30; Start 08/24/18 at 00:30; Stop 08/24/18 at 08:29; Status DC Ciprofloxacin/ Dextrose 200 ml @ 200 mls/hr Q12HR IV ; Start 08/24/18 at 09:00 ; Stop 08/24/18 at 09:00; Status DC Ibuprofen (Motrin) 600 mg 1X ONCE PO Last administered on 08/24/18 01:07; Start 08/24/18 at 00:45; Stop 08/24/18 at 00:46; Status DC Levofloxacin/ Dextrose 100 ml @ 100 mls/hr 1X ONCE IV ; Start 08/24/18 at 00: 45; Stop 08/24/18 at 01:44; Status UNV Trimethoprim/ Sulfamethoxazole (Bactrim Ds) 1 tab BID PO Last administered on 08:27; Start 08/24/18 at 01:00; Stop 08/28/18 at 15:06; Status DC Ondansetron HCl (Zofran) 4 mg PRN Q6HRS PRN IV NAUSEA/VOMITING Last administered on 08/27/18 11:33; Start 08/24/18 at 09:30 Acetaminophen/ Hydrocodone Bitart (Lortab 5/325) 1 tab PRN Q4HRS PRN PO PAIN Last administered on 08/25/18 08:03; Start 08/24/18 at 09:30; Stop 08/25/18 at 10:55; Status DC Furosemide (Lasix) 40 mg DAILY PO Last administered on 08/25/18 08:01; Start 08/24/18 at 10:00; Stop 08/25/18 at 12:46; Status DC Rifaximin (Xifaxan) 550 mg Q12HR PO Last administered on 08/30/18 08:30; Start 08/24/18 at 10:00 Tramadol HCl (Ultram) 50 mg PRN Q6HRS PRN PO MILD PAIN Last administered on 08/27 08:25; Start 08/24/18 at 09:30 Spironolactone (Aldactone) 50 mg Q48H PO Last administered on 08/24/18 15:45; Start 08/24/18 at 09:00; Stop 08/25/18 at 12:46; Status DC Lactulose (Lactulose) 20 gm BID PO Last administered on 08/30/18 08:29; Start 08/24/18 at 10:00 Albumin Human 200 ml @ As Directed STK-MED ONCE IV ; Start 08/24/18 at 13:20; Stop 08/24/18 at 13:21; Status DC Albumin Human 100 ml @ 100 mls/hr 1X ONCE IV Last administered on 08/24/18at 13:30; Start 08/24/18 at 15:00; Stop 08/24/18 at 15:59; Status DC Albumin Human 100 ml @ 100 mls/hr 1X ONCE IV Last administered on 08/24/18at 14:00; Start 08/24/18 at 15:00; Stop 08/24/18 at 15:59; Status DC Acetaminophen/ Hydrocodone Bitart (Lortab 10/325) 1 tab PRN Q4HRS PRN PO MODERATE-SEVERE PAIN Last administered on 08/30/18 08:29; Start 08/25/18 at 11: 00 Lactobacillus Rhamnosus (Culturelle) 1 cap BID PO Last administered on 08:30; Start 08/25/18 at 21:00 Linezolid/Dextrose 300 ml @ 300 mls/hr Q12HR IV Last administered on 08/30/18 08:30; Start 08/28/18 at 15:30 Diphenhydramine HCl (Benadryl) 25 mg 1X ONCE PO Last administered on 08/29/18 11:14; Start 08/29/18 at 11:45; Stop 08/29/18 at 11:46; Status DC Acetaminophen (Tylenol) 650 mg 1X ONCE PO Last administered on 08/29/18 11:14 ; Start 08/29/18 at 11:45; Stop 08/29/18 at 11:46; Status DC Active Scripts Active Lasix (Furosemide) 40 Mg Tablet 1 Tab PO DAILY Xifaxan (Rifaximin) 550 Mg Tablet 550 Mg PO Q12HR Aldactone (Spironolactone) 25 Mg Tablet 50 Mg PO QODAY Lasix (Furosemide) 20 Mg Tablet 1 Tab PO DAILY Tramadol Hcl 50 Mg Tablet 50 Mg PO Q6HRS PRN 7 Days Vitals/I & O Vital Sign - Last 24 Hours 08/29/18 08/29/18 08/29/18 08/29/18 08:47 09:00 11:00 11:31 Temp 98.2 97.6 97.9 98.2 97.6 97.9 Pulse 104 108 108 Resp 18 20 20 B/P (MAP) 97/58 (71) 100/68 (79) 100/68 Pulse Ox 93 100 O2 Delivery Room Air Room Air Room Air 08/29/18 08/29/18 08/29/18 08/29/18 11:47 12:46 13:44 14:35 Temp 97.7 97.6 97.5 97.8 97.7 97.6 97.5 97.8 Pulse 98 93 90 93 Resp 20 18 18 18 B/P (MAP) 95/65 101/66 99/66 100/67 08/29/18 08/29/18 08/29/18 08/29/18 15:00 15:35 17:36 19:00 Temp 98.1 98.1 98.2 98.1 98.1 98.2 Pulse 94 92 113 Resp 17 18 18 18 B/P (MAP) 82/58 (66) 98/69 106/69 (81) Pulse Ox 96 96 O2 Delivery Room Air Room Air Room Air 08/29/18 08/29/18 08/29/18 08/30/18 20:00 20:59 23:00 01:32 Temp 97.9 97.9 Pulse 107 Resp 16 18 16 B/P (MAP) 110/64 (79) Pulse Ox 99 O2 Delivery Room Air Room Air Room Air Room Air 08/30/18 08/30/18 08/30/18 08/30/18 02:32 03:00 07:00 08:29 Temp 97.4 97.9 97.4 97.9 Pulse 76 100 Resp 18 18 16 18 B/P (MAP) 99/54 (69) 99/67 (78) Pulse Ox 96 O2 Delivery Room Air Room Air Room Air Room Air Intake and Output 08/29/18 08/29/18 08/30/18 15:00 23:00 07:00 Intake Total 1500 ml 280 ml 340 ml Output Total 200 ml Balance 1300 ml 280 ml 340 ml CHARLES EMERSON MD Aug 30, 2018 08:45
--- NOTE | 2018-08-30 09:40 | PDOC ---
SUBJECTIVE ROS Stable OBJECTIVE Vital Signs Vital Signs Date Time Temp Pulse Resp B/P (MAP) Pulse Ox O2 Delivery O2 Flow Rate FiO2 08/30/18 08:29 18 Room Air 08/30/18 07:00 97.9 100 99/67 (78) 97.9 08/30/18 03:00 96 I & 0 Intake and Output 08/30/18 07:00 Intake Total 2120 ml Output Total 200 ml Balance 1920 ml Intake Oral 620 ml IV Total 300 ml Blood Product 350 ml Blood Product IV Normal Saline Flush 850 ml Output Urine Total 200 ml # Voids 6 PHYSICAL EXAM Physical Exam General: Alert, Oriented X3, Cooperative, No acute distress HEENT: Atraumatic, PERRLA, EOMI, Mucous membr. moist/pink Neck Supple Lungs: Clear to auscultation, Normal air movement Heart: S1S2, RRR, no gallops, no murmurs Abdomen: Normal bowel sounds, distended, ascites+, Extremities: , edema +, Bilat LE Skin: No rashes, Neuro:Grossly Normal No horan DIAGNOSIS/ASSESSMENT Assessment & Plan JERROD- Prerenal Vs Hepatorenal S/P Multiple Paracentesis, Hypotensive Most recent 08/24 - 9.6 lts JERROD at every admission post paracentesis No labs this am,. Ordered Monitor , continue to hold diuretics ESLD- cirrhosis Multiple Paracentesis on lactulose and Xifaxan, has declined palliative discussion in the past, always wants to wait for ex- to get here UTI - on IV atbx Hyponatremia- Secondary to ESLD MELD higher when calculated for Hyponatremia Not a transplant or TIPS candidate as per GI . Anemia- Hgb<7 PRBC ordered by primary ETOH Abuse Refractory/Recurrent ascites CT 08/23 - 1. Hepatic cirrhosis with changes of portal hypertension including collateral vasculature and splenomegaly. 2. Cholelithiasis 3. Moderate to large volume abdominal and pelvic ascites. 4. No evidence for small or large bowel obstruction. COMMENT/RELEVANT DATA Meds Current Medications Medications (Trade) Dose Ordered Sig/Marc Start Time Stop Time Status Last Admin Dose Admin Acetaminophen (Tylenol) 650 mg 1X ONCE 08/29/18 11:45 08/29/18 11:46 DC 08/29/18 11:14 650 MG Acetaminophen/ Hydrocodone Bitart (Lortab 10/325) 1 tab PRN Q4HRS PRN 08/25/18 11:00 08/30/18 08:29 1 TAB Acetaminophen/ Hydrocodone Bitart (Lortab 5/325) 1 tab PRN Q4HRS PRN 08/24/18 09:30 08/25/18 10:55 DC 08/25/18 08:03 1 TAB Albumin Human 100 ml @ 100 mls/hr 1X ONCE 08/24/18 15:00 08/24/18 15:59 DC 08/24/18 14:00 100 MLS/HR Ciprofloxacin/ Dextrose 200 ml @ 200 mls/hr Q12HR 08/24/18 09:00 08/24/18 09:00 DC Diphenhydramine HCl (Benadryl) 25 mg 1X ONCE 08/29/18 11:45 08/29/18 11:46 DC 08/29/18 11:14 25 MG Furosemide (Lasix) 40 mg DAILY 08/24/18 10:00 08/25/18 12:46 DC 08/25/18 08:01 40 MG Ibuprofen (Motrin) 600 mg 1X ONCE 08/24/18 00:45 08/24/18 00:46 DC 08/24/18 01:07 600 MG Info (CONTRAST GIVEN -- Rx MONITORING) 1 each PRN DAILY PRN 08/23/18 23:55 08/25/18 23:54 DC Iohexol (Omnipaque 300 Mg/ml) 75 ml 1X ONCE 08/23/18 23:55 08/23/18 23:56 DC 08/23/18 00:30 75 ML Lactobacillus Rhamnosus (Culturelle) 1 cap BID 08/25/18 21:00 08/30/18 08:30 1 CAP Lactulose (Lactulose) 20 gm BID 08/24/18 10:00 08/30/18 08:29 20 GM Levofloxacin/ Dextrose 100 ml @ 100 mls/hr 1X ONCE 08/24/18 00:45 08/24/18 01:44 UNV Linezolid/Dextrose 300 ml @ 300 mls/hr Q12HR 08/28/18 15:30 08/30/18 08:30 300 MLS/HR Morphine Sulfate (Morphine Sulfate) 4 mg PRN Q2HR PRN 08/23/18 23:45 08/24/18 23:44 DC 08/24/18 23:17 4 MG Ondansetron HCl (Zofran) 4 mg PRN Q6HRS PRN 08/24/18 09:30 08/27/18 11:33 4 MG Rifaximin (Xifaxan) 550 mg Q12HR 08/24/18 10:00 08/30/18 08:30 550 MG Sodium Chloride 1,000 ml @ 125 mls/hr 1X ONCE 08/24/18 00:30 08/24/18 08:29 DC 08/24/18 00:30 125 MLS/HR Spironolactone (Aldactone) 50 mg Q48H 08/24/18 09:00 08/25/18 12:46 DC 08/24/18 15:45 50 MG Tramadol HCl (Ultram) 50 mg PRN Q6HRS PRN 08/24/18 09:30 08/27/18 08:25 50 MG Trimethoprim/ Sulfamethoxazole (Bactrim Ds) 1 tab BID 08/24/18 01:00 08/28/18 15:06 DC 08/28/18 08:27 1 TAB Lab Laboratory Tests Test 08/30/18 06:30 White Blood Count 2.7 x10^3/uL (4.0-11.0) Red Blood Count 2.99 x10^6/uL (4.30-5.70) Hemoglobin 8.9 g/dL (13.0-17.5) Hematocrit 27.1 % (39.0-53.0) Mean Corpuscular Volume 91 fL (79-100) Mean Corpuscular Hemoglobin 30 pg (25-35) Mean Corpuscular Hemoglobin Concent 33 g/dL (31-37) Red Cell Distribution Width 15.8 % (11.5-14.5) Platelet Count 88 x10^3/uL (140-400) Neutrophils (%) (Auto) 31 % (31-73) Lymphocytes (%) (Auto) 49 % (24-48) Monocytes (%) (Auto) 13 % (0-9) Eosinophils (%) (Auto) 5 % (0-3) Basophils (%) (Auto) 2 % (0-3) Neutrophils # (Auto) 0.8 x10^3uL (1.8-7.7) Lymphocytes # (Auto) 1.3 x10^3/uL (1.0-4.8) Monocytes # (Auto) 0.4 x10^3/uL (0.0-1.1) Eosinophils # (Auto) 0.1 x10^3/uL (0.0-0.7) Basophils # (Auto) 0.1 x10^3/uL (0.0-0.2) Results All relevant outside records, renal labs, imaging studies, telemetry/EKG's were reviewed. ALIX BYRD MD Aug 30, 2018 09:40
[2018-08-30 11:03] LABS: DIRECT BILIRUBIN 0.9 mg/dL (0.0-0.2); TOTAL BILIRUBIN 1.7 mg/dL (0.2-1.0); TOTAL PROTEIN 5.8 g/dL (6.4-8.2)
[2018-08-30 11:25] VITALS: BP 114/83
--- NOTE | 2018-08-30 14:52 | PDOC ---
Subjective: Subjective: "You're wearing a mask, you tell me." Objective: Vital Signs: Vital Signs Date Time Temp Pulse Resp B/P (MAP) Pulse Ox O2 Delivery O2 Flow Rate FiO2 08/30/18 13:27 18 Room Air 08/30/18 11:25 97.3 112 114/83 (93) 100 97.3 Labs: Laboratory Tests Test 08/30/18 06:30 White Blood Count 2.7 x10^3/uL Red Blood Count 2.99 x10^6/uL Hemoglobin 8.9 g/dL Hematocrit 27.1 % Mean Corpuscular Volume 91 fL Mean Corpuscular Hemoglobin 30 pg Mean Corpuscular Hemoglobin Concent 33 g/dL Red Cell Distribution Width 15.8 % Platelet Count 88 x10^3/uL Neutrophils (%) (Auto) 31 % Lymphocytes (%) (Auto) 49 % Monocytes (%) (Auto) 13 % Eosinophils (%) (Auto) 5 % Basophils (%) (Auto) 2 % Neutrophils # (Auto) 0.8 x10^3uL Lymphocytes # (Auto) 1.3 x10^3/uL Monocytes # (Auto) 0.4 x10^3/uL Eosinophils # (Auto) 0.1 x10^3/uL Basophils # (Auto) 0.1 x10^3/uL Total Bilirubin 1.7 mg/dL Direct Bilirubin 0.9 mg/dL Aspartate Amino Transf (AST/SGOT) 34 U/L Alanine Aminotransferase (ALT/SGPT) 24 U/L Alkaline Phosphatase 85 U/L Total Protein 5.8 g/dL Albumin 2.0 g/dL PE: GEN: NAD ABD: distended, slightly more tight today NEURO/PSYCH: A & O 3, flat A/P: ESLD w/ recurrent ascites - no diuretics 2/2 kidney function UTI -- Paracentesis PRN. VALERIA ALCOCER Aug 30, 2018 14:52
[2018-08-30 15:22] VITALS: BP 85/56
[2018-08-30] MEDS: traMADol 50 MG TABLET PO PRN (18:54)
[2018-08-30 19:00] VITALS: BP 110/72
[2018-08-30] MEDS: LINEZOLID 600 MG TABLET PO SCH (21:05)
[2018-08-30 22:51] VITALS: BP 90/58
[2018-08-31] VITALS (9 sets, daily range): BP systolic 88–131; BP diastolic 59–70
[2018-08-31] MEDS: HYDROcodone/APAP 10/325 1 TAB TABLET PO PRN ×5 (02:38→20:54)
[2018-08-31 07:35] LABS: ALBUMIN 2.1 g/dL (3.4-5.0); ALBUMIN/GLOBULIN RATIO 0.4 (1.0-1.7); CALCIUM 8.8 mg/dL (8.5-10.1); CREATININE 1.9 mg/dL (0.7-1.3); GFR 36.9; PHOSPHORUS 4.6 mg/dL (2.6-4.7); POTASSIUM 4.7 mmol/L (3.5-5.1); TOTAL BILIRUBIN 1.4 mg/dL (0.2-1.0); TOTAL PROTEIN 6.9 g/dL (6.4-8.2)
[2018-08-31 07:38] LABS: BASO % 1 % (0-3); EOS # 0.2 x10^3/uL (0.0-0.7); EOS % 7 % (0-3); HEMOGLOBIN 9.7 g/dL (13.0-17.5); LYMPH # 1.4 x10^3/uL (1.0-4.8); LYMPH % 43 % (24-48); MEAN CORPUSCULAR HEMOGLOBIN 30 pg (25-35); MEAN CORPUSCULAR HGB CONC 32 g/dL (31-37); MEAN CORPUSCULAR VOLUME 92 fL (79-100); MONO # 0.3 x10^3/uL (0.0-1.1); MONO % 9 % (0-9); NEUT # 1.3 x10^3uL (1.8-7.7); NEUT % 41 % (31-73); PLATELET COUNT 104 x10^3/uL (140-400); RED BLOOD COUNT 3.27 x10^6/uL (4.30-5.70); RED CELL DISTRIBUTION WIDTH 15.8 % (11.5-14.5); WHITE BLOOD COUNT 3.3 x10^3/uL (4.0-11.0)
[2018-08-31] MEDS: LINEZOLID 600 MG TABLET PO SCH ×2 (08:39→20:53)
[2018-08-31] MEDS: LACTOBACILLUS RHAMNOSUS GG 1 CAPSULE. PO SCH ×2 (08:39→20:52)
[2018-08-31] MEDS: rifAXIMin 550 MG TABLET PO SCH ×2 (08:39→20:53)
[2018-08-31] MEDS: LACTULOSE 20 GM/30 ML SOLUTION. PO SCH ×2 (08:39→20:52)
--- NOTE | 2018-08-31 09:43 | PDOC ---
SUBJECTIVE ROS Stable OBJECTIVE Vital Signs Vital Signs Date Time Temp Pulse Resp B/P (MAP) Pulse Ox O2 Delivery O2 Flow Rate FiO2 08/31/18 07:25 Room Air 08/31/18 07:00 98.2 107 18 99/64 (76) 98 98.2 I & 0 Intake and Output 08/31/18 07:00 Intake Total 1750 ml Output Total 625 ml Balance 1125 ml Intake Oral 1450 ml IV Total 300 ml Output Urine Total 625 ml # Voids 6 PHYSICAL EXAM Physical Exam General: Alert, Oriented X3, Cooperative, No acute distress HEENT: Atraumatic, PERRLA, EOMI, Mucous membr. moist/pink Neck Supple Lungs: Clear to auscultation, Normal air movement Heart: S1S2, RRR, no gallops, no murmurs Abdomen: Normal bowel sounds, distended, ascites+, Extremities: , edema +, Bilat LE Skin: No rashes, Neuro:Grossly Normal No horan DIAGNOSIS/ASSESSMENT Assessment & Plan JERROD- Prerenal Vs Hepatorenal S/P Multiple Paracentesis, Hypotensive Most recent 08/24 - 9.6 lts No improvement in renal function, gently Hydration, dw RN ESLD- cirrhosis Multiple Paracentesis on lactulose and Xifaxan, has declined palliative discussion in the past UTI - on IV atbx Hyponatremia- Secondary to ESLD MELD higher when calculated for Hyponatremia Not a transplant or TIPS candidate as per GI . Anemia- Hgb<7 PRBC ordered by primary ETOH Abuse Refractory/Recurrent ascites CT 08/23 - 1. Hepatic cirrhosis with changes of portal hypertension including collateral vasculature and splenomegaly. 2. Cholelithiasis 3. Moderate to large volume abdominal and pelvic ascites. 4. No evidence for small or large bowel obstruction. COMMENT/RELEVANT DATA Meds Current Medications Medications (Trade) Dose Ordered Sig/Marc Start Time Stop Time Status Last Admin Dose Admin Acetaminophen (Tylenol) 650 mg 1X ONCE 08/29/18 11:45 08/29/18 11:46 DC 08/29/18 11:14 650 MG Acetaminophen/ Hydrocodone Bitart (Lortab 10/325) 1 tab PRN Q4HRS PRN 08/25/18 11:00 08/31/18 06:25 1 TAB Acetaminophen/ Hydrocodone Bitart (Lortab 5/325) 1 tab PRN Q4HRS PRN 08/24/18 09:30 08/25/18 10:55 DC 08/25/18 08:03 1 TAB Albumin Human 100 ml @ 100 mls/hr 1X ONCE 08/24/18 15:00 08/24/18 15:59 DC 08/24/18 14:00 100 MLS/HR Ciprofloxacin/ Dextrose 200 ml @ 200 mls/hr Q12HR 08/24/18 09:00 08/24/18 09:00 DC Diphenhydramine HCl (Benadryl) 25 mg 1X ONCE 08/29/18 11:45 08/29/18 11:46 DC 08/29/18 11:14 25 MG Furosemide (Lasix) 40 mg DAILY 08/24/18 10:00 08/25/18 12:46 DC 08/25/18 08:01 40 MG Ibuprofen (Motrin) 600 mg 1X ONCE 08/24/18 00:45 08/24/18 00:46 DC 08/24/18 01:07 600 MG Info (CONTRAST GIVEN -- Rx MONITORING) 1 each PRN DAILY PRN 08/23/18 23:55 08/25/18 23:54 DC Iohexol (Omnipaque 300 Mg/ml) 75 ml 1X ONCE 08/23/18 23:55 08/23/18 23:56 DC 08/23/18 00:30 75 ML Lactobacillus Rhamnosus (Culturelle) 1 cap BID 08/25/18 21:00 08/31/18 08:39 1 CAP Lactulose (Lactulose) 20 gm BID 08/24/18 10:00 08/31/18 08:39 20 GM Levofloxacin/ Dextrose 100 ml @ 100 mls/hr 1X ONCE 08/24/18 00:45 08/24/18 01:44 UNV Linezolid (Zyvox) 600 mg BID 08/30/18 21:00 08/31/18 08:39 600 MG Linezolid/Dextrose 300 ml @ 300 mls/hr Q12HR 08/28/18 15:30 08/30/18 10:25 DC 08/30/18 08:30 300 MLS/HR Morphine Sulfate (Morphine Sulfate) 4 mg PRN Q2HR PRN 08/23/18 23:45 08/24/18 23:44 DC 08/24/18 23:17 4 MG Ondansetron HCl (Zofran) 4 mg PRN Q6HRS PRN 08/24/18 09:30 08/27/18 11:33 4 MG Rifaximin (Xifaxan) 550 mg Q12HR 08/24/18 10:00 08/31/18 08:39 550 MG Sodium Chloride 1,000 ml @ 125 mls/hr 1X ONCE 08/24/18 00:30 08/24/18 08:29 DC 08/24/18 00:30 125 MLS/HR Spironolactone (Aldactone) 50 mg Q48H 08/24/18 09:00 08/25/18 12:46 DC 08/24/18 15:45 50 MG Tramadol HCl (Ultram) 50 mg PRN Q6HRS PRN 08/24/18 09:30 08/30/18 18:54 50 MG Trimethoprim/ Sulfamethoxazole (Bactrim Ds) 1 tab BID 08/24/18 01:00 08/28/18 15:06 DC 08/28/18 08:27 1 TAB Lab Laboratory Tests Test 08/31/18 06:30 White Blood Count 3.3 x10^3/uL (4.0-11.0) Red Blood Count 3.27 x10^6/uL (4.30-5.70) Hemoglobin 9.7 g/dL (13.0-17.5) Hematocrit 30.0 % (39.0-53.0) Mean Corpuscular Volume 92 fL (79-100) Mean Corpuscular Hemoglobin 30 pg (25-35) Mean Corpuscular Hemoglobin Concent 32 g/dL (31-37) Red Cell Distribution Width 15.8 % (11.5-14.5) Platelet Count 104 x10^3/uL (140-400) Neutrophils (%) (Auto) 41 % (31-73) Lymphocytes (%) (Auto) 43 % (24-48) Monocytes (%) (Auto) 9 % (0-9) Eosinophils (%) (Auto) 7 % (0-3) Basophils (%) (Auto) 1 % (0-3) Neutrophils # (Auto) 1.3 x10^3uL (1.8-7.7) Lymphocytes # (Auto) 1.4 x10^3/uL (1.0-4.8) Monocytes # (Auto) 0.3 x10^3/uL (0.0-1.1) Eosinophils # (Auto) 0.2 x10^3/uL (0.0-0.7) Basophils # (Auto) 0.0 x10^3/uL (0.0-0.2) Sodium Level 128 mmol/L (136-145) Potassium Level 4.7 mmol/L (3.5-5.1) Chloride Level 98 mmol/L (98-107) Carbon Dioxide Level 22 mmol/L (21-32) Anion Gap 8 (6-14) Blood Urea Nitrogen 25 mg/dL (8-26) Creatinine 1.9 mg/dL (0.7-1.3) Estimated GFR (Cockcroft-Gault) 36.9 BUN/Creatinine Ratio 13 (6-20) Glucose Level 122 mg/dL (70-99) Calcium Level 8.8 mg/dL (8.5-10.1) Phosphorus Level 4.6 mg/dL (2.6-4.7) Total Bilirubin 1.4 mg/dL (0.2-1.0) Aspartate Amino Transf (AST/SGOT) 47 U/L (15-37) Alanine Aminotransferase (ALT/SGPT) 22 U/L (16-63) Alkaline Phosphatase 143 U/L (46-116) Total Protein 6.9 g/dL (6.4-8.2) Albumin 2.1 g/dL (3.4-5.0) Albumin/Globulin Ratio 0.4 (1.0-1.7) Results All relevant outside records, renal labs, imaging studies, telemetry/EKG's were reviewed. ALIX BYRD MD Aug 31, 2018 09:43
--- NOTE | 2018-08-31 10:33 | PDOC ---
PROGRESS NOTES Chief Complaint Chief Complaint acute renal failure NOS, but concern for hepatorenal, or ATN cirrhosis, with repeated ascites, decompensation recent EtOH use noncompliance meds weakness and debiliy History of Present Illness History of Present Illness Mr Thompson is a 58 yo M w/ PMHx cirrhosis with ascites multiple admissions This time admitted on 08/23 with abdominal distension Undergoes paracentesis, most recent 08/24 ascites better since admit with s/p paracentesis 9.6 L of serous fluid, now i am unsure of diuretics due to kidney fxn now with acute renal failure, this has happened before 08/29: Hb 6.9 this morning, 1u PRBC ordered. He and his ex- feel his abdomen is more swollen today than when he came into the hospital. States his pain is not well controlled. 08/30: Hb to 8.9 after transfusion. Lactate normalized today. Cr. down to 1.6. WBC 2.7 with ANC < 1000, afebrile. ANC 1300 today. He feels more swollen. Cr. from 1.6-> 1.9, getting IVF per nephrology. For paracentesis today per GI. He could possibly go after this. A/P: Neutropenic precautions. May need to remain inpatient, monitor his CBC Cont linezolid for his enterococcal UTI, unfortunately his PCN and quinolone allergies preclude any other treatment and his JERROD prevented vancomycin therapy. As it is by definition a complicated UTI he should have 2 weeks of therapy. Transfused 1u PRBC with good effect GI following Nephrology consulted today Vitals Vitals Vital Signs Date Time Temp Pulse Resp B/P (MAP) Pulse Ox O2 Delivery O2 Flow Rate FiO2 08/31/18 08:00 Room Air 08/31/18 07:00 98.2 107 18 99/64 (76) 98 98.2 Physical Exam Physical Exam HENT: Normocephalic, atraumatic, bilateral external ears normal, oropharynx moist, no oral exudates, nose normal. [] Eyes: PERRLA, EOMI, conjunctiva normal, no discharge. [] Neck: Normal range of motion, no tenderness, supple, no stridor. [] Cardiovascular: TACHY 110 Heart rate regular rhythm, no murmur [] Lungs & Thorax: Bilateral breath sounds clear to auscultation [] Abdomen: Moderately rounded abdomen consistent with ascites. Bowel sounds normal , soft, tenderness diffusely throughout the abdomen, no masses, no pulsatile masses. [] Skin: Warm, dry, no erythema, no rash. [] Back: No tenderness, no CVA tenderness. [] Extremities: No tenderness, no cyanosis, no clubbing, ROM intact, no edema. [] Neurologic: Alert and oriented X 3, normal motor function, normal sensory function, no focal deficits noted. [] Psychologic: Affect normal, judgement normal, mood normal. [] General: Alert, Oriented X3, Cooperative Heart: Regular rate, Other (TACHY) Lungs: Clear Extremities: No cyanosis Labs LABS Laboratory Tests Test 08/31/18 06:30 White Blood Count 3.3 x10^3/uL (4.0-11.0) Red Blood Count 3.27 x10^6/uL (4.30-5.70) Hemoglobin 9.7 g/dL (13.0-17.5) Hematocrit 30.0 % (39.0-53.0) Mean Corpuscular Volume 92 fL (79-100) Mean Corpuscular Hemoglobin 30 pg (25-35) Mean Corpuscular Hemoglobin Concent 32 g/dL (31-37) Red Cell Distribution Width 15.8 % (11.5-14.5) Platelet Count 104 x10^3/uL (140-400) Neutrophils (%) (Auto) 41 % (31-73) Lymphocytes (%) (Auto) 43 % (24-48) Monocytes (%) (Auto) 9 % (0-9) Eosinophils (%) (Auto) 7 % (0-3) Basophils (%) (Auto) 1 % (0-3) Neutrophils # (Auto) 1.3 x10^3uL (1.8-7.7) Lymphocytes # (Auto) 1.4 x10^3/uL (1.0-4.8) Monocytes # (Auto) 0.3 x10^3/uL (0.0-1.1) Eosinophils # (Auto) 0.2 x10^3/uL (0.0-0.7) Basophils # (Auto) 0.0 x10^3/uL (0.0-0.2) Sodium Level 128 mmol/L (136-145) Potassium Level 4.7 mmol/L (3.5-5.1) Chloride Level 98 mmol/L (98-107) Carbon Dioxide Level 22 mmol/L (21-32) Anion Gap 8 (6-14) Blood Urea Nitrogen 25 mg/dL (8-26) Creatinine 1.9 mg/dL (0.7-1.3) Estimated GFR (Cockcroft-Gault) 36.9 BUN/Creatinine Ratio 13 (6-20) Glucose Level 122 mg/dL (70-99) Calcium Level 8.8 mg/dL (8.5-10.1) Phosphorus Level 4.6 mg/dL (2.6-4.7) Total Bilirubin 1.4 mg/dL (0.2-1.0) Aspartate Amino Transf (AST/SGOT) 47 U/L (15-37) Alanine Aminotransferase (ALT/SGPT) 22 U/L (16-63) Alkaline Phosphatase 143 U/L (46-116) Total Protein 6.9 g/dL (6.4-8.2) Albumin 2.1 g/dL (3.4-5.0) Albumin/Globulin Ratio 0.4 (1.0-1.7) Assessment and Plan Assessmemt and Plan Problems Medical Problems: (1) Acute pancreatitis Status: Acute (2) Ascites Status: Acute (3) ETOH abuse Status: Acute Comment Review of Relevant I have reviewed the following items arlette (where applicable) has been applied. Labs Laboratory Tests Test 08/30/18 06:30 08/31/18 06:30 White Blood Count 2.7 x10^3/uL (4.0-11.0) 3.3 x10^3/uL (4.0-11.0) Red Blood Count 2.99 x10^6/uL (4.30-5.70) 3.27 x10^6/uL (4.30-5.70) Hemoglobin 8.9 g/dL (13.0-17.5) 9.7 g/dL (13.0-17.5) Hematocrit 27.1 % (39.0-53.0) 30.0 % (39.0-53.0) Mean Corpuscular Volume 91 fL (79-100) 92 fL (79-100) Mean Corpuscular Hemoglobin 30 pg (25-35) 30 pg (25-35) Mean Corpuscular Hemoglobin Concent 33 g/dL (31-37) 32 g/dL (31-37) Red Cell Distribution Width 15.8 % (11.5-14.5) 15.8 % (11.5-14.5) Platelet Count 88 x10^3/uL (140-400) 104 x10^3/uL (140-400) Neutrophils (%) (Auto) 31 % (31-73) 41 % (31-73) Lymphocytes (%) (Auto) 49 % (24-48) 43 % (24-48) Monocytes (%) (Auto) 13 % (0-9) 9 % (0-9) Eosinophils (%) (Auto) 5 % (0-3) 7 % (0-3) Basophils (%) (Auto) 2 % (0-3) 1 % (0-3) Neutrophils # (Auto) 0.8 x10^3uL (1.8-7.7) 1.3 x10^3uL (1.8-7.7) Lymphocytes # (Auto) 1.3 x10^3/uL (1.0-4.8) 1.4 x10^3/uL (1.0-4.8) Monocytes # (Auto) 0.4 x10^3/uL (0.0-1.1) 0.3 x10^3/uL (0.0-1.1) Eosinophils # (Auto) 0.1 x10^3/uL (0.0-0.7) 0.2 x10^3/uL (0.0-0.7) Basophils # (Auto) 0.1 x10^3/uL (0.0-0.2) 0.0 x10^3/uL (0.0-0.2) Total Bilirubin 1.7 mg/dL (0.2-1.0) 1.4 mg/dL (0.2-1.0) Direct Bilirubin 0.9 mg/dL (0.0-0.2) Aspartate Amino Transf (AST/SGOT) 34 U/L (15-37) 47 U/L (15-37) Alanine Aminotransferase (ALT/SGPT) 24 U/L (16-63) 22 U/L (16-63) Alkaline Phosphatase 85 U/L (46-116) 143 U/L (46-116) Total Protein 5.8 g/dL (6.4-8.2) 6.9 g/dL (6.4-8.2) Albumin 2.0 g/dL (3.4-5.0) 2.1 g/dL (3.4-5.0) Sodium Level 128 mmol/L (136-145) Potassium Level 4.7 mmol/L (3.5-5.1) Chloride Level 98 mmol/L (98-107) Carbon Dioxide Level 22 mmol/L (21-32) Anion Gap 8 (6-14) Blood Urea Nitrogen 25 mg/dL (8-26) Creatinine 1.9 mg/dL (0.7-1.3) Estimated GFR (Cockcroft-Gault) 36.9 BUN/Creatinine Ratio 13 (6-20) Glucose Level 122 mg/dL (70-99) Calcium Level 8.8 mg/dL (8.5-10.1) Phosphorus Level 4.6 mg/dL (2.6-4.7) Albumin/Globulin Ratio 0.4 (1.0-1.7) Laboratory Tests Test 08/31/18 06:30 White Blood Count 3.3 x10^3/uL (4.0-11.0) Red Blood Count 3.27 x10^6/uL (4.30-5.70) Hemoglobin 9.7 g/dL (13.0-17.5) Hematocrit 30.0 % (39.0-53.0) Mean Corpuscular Volume 92 fL (79-100) Mean Corpuscular Hemoglobin 30 pg (25-35) Mean Corpuscular Hemoglobin Concent 32 g/dL (31-37) Red Cell Distribution Width 15.8 % (11.5-14.5) Platelet Count 104 x10^3/uL (140-400) Neutrophils (%) (Auto) 41 % (31-73) Lymphocytes (%) (Auto) 43 % (24-48) Monocytes (%) (Auto) 9 % (0-9) Eosinophils (%) (Auto) 7 % (0-3) Basophils (%) (Auto) 1 % (0-3) Neutrophils # (Auto) 1.3 x10^3uL (1.8-7.7) Lymphocytes # (Auto) 1.4 x10^3/uL (1.0-4.8) Monocytes # (Auto) 0.3 x10^3/uL (0.0-1.1) Eosinophils # (Auto) 0.2 x10^3/uL (0.0-0.7) Basophils # (Auto) 0.0 x10^3/uL (0.0-0.2) Sodium Level 128 mmol/L (136-145) Potassium Level 4.7 mmol/L (3.5-5.1) Chloride Level 98 mmol/L (98-107) Carbon Dioxide Level 22 mmol/L (21-32) Anion Gap 8 (6-14) Blood Urea Nitrogen 25 mg/dL (8-26) Creatinine 1.9 mg/dL (0.7-1.3) Estimated GFR (Cockcroft-Gault) 36.9 BUN/Creatinine Ratio 13 (6-20) Glucose Level 122 mg/dL (70-99) Calcium Level 8.8 mg/dL (8.5-10.1) Phosphorus Level 4.6 mg/dL (2.6-4.7) Total Bilirubin 1.4 mg/dL (0.2-1.0) Aspartate Amino Transf (AST/SGOT) 47 U/L (15-37) Alanine Aminotransferase (ALT/SGPT) 22 U/L (16-63) Alkaline Phosphatase 143 U/L (46-116) Total Protein 6.9 g/dL (6.4-8.2) Albumin 2.1 g/dL (3.4-5.0) Albumin/Globulin Ratio 0.4 (1.0-1.7) Microbiology 08/24/18 Blood Culture - Final, Complete NO GROWTH AFTER 5 DAYS 08/24/18 Urine Culture - Final, Complete 08/24/18 Urine Culture Result 1 (KENDALL) - Final, Complete 08/24/18 Antimicrobic Susceptibility - Final, Complete Medications Current Medications Morphine Sulfate (Morphine Sulfate) 4 mg 1X ONCE IV Last administered on at 00:00; Start 08/23/18 at 23:30; Stop 08/23/18 at 23:33; Status DC Ondansetron HCl (Zofran) 4 mg 1X ONCE IV Last administered on 08/23/18at 23:57 ; Start 08/23/18 at 23:30; Stop 08/23/18 at 23:33; Status DC Ondansetron HCl (Zofran) 4 mg PRN Q8HRS PRN IV NAUSEA/VOMITING; Start 08/23/18 at 23:45; Stop 08/24/18 at 09:20; Status DC Morphine Sulfate (Morphine Sulfate) 4 mg PRN Q2HR PRN IV PAIN Last administered on 08/24/18at 23:17; Start 08/23/18 at 23:45; Stop 08/24/18 at 23:44 ; Status DC Iohexol (Omnipaque 300 Mg/ml) 75 ml 1X ONCE IV Last administered on 08/23/18at 00:30; Start 08/23/18 at 23:55; Stop 08/23/18 at 23:56; Status DC Info (CONTRAST GIVEN -- Rx MONITORING) 1 each PRN DAILY PRN MC SEE COMMENTS; Start 08/23/18 at 23:55; Stop 08/25/18 at 23:54; Status DC Sodium Chloride 1,000 ml @ 125 mls/hr 1X ONCE IV Last administered on at 00:30; Start 08/24/18 at 00:30; Stop 08/24/18 at 08:29; Status DC Ciprofloxacin/ Dextrose 200 ml @ 200 mls/hr Q12HR IV ; Start 08/24/18 at 09:00 ; Stop 08/24/18 at 09:00; Status DC Ibuprofen (Motrin) 600 mg 1X ONCE PO Last administered on 08/24/18at 01:07; Start 08/24/18 at 00:45; Stop 08/24/18 at 00:46; Status DC Levofloxacin/ Dextrose 100 ml @ 100 mls/hr 1X ONCE IV ; Start 08/24/18 at 00: 45; Stop 08/24/18 at 01:44; Status UNV Trimethoprim/ Sulfamethoxazole (Bactrim Ds) 1 tab BID PO Last administered on at 08:27; Start 08/24/18 at 01:00; Stop 08/28/18 at 15:06; Status DC Ondansetron HCl (Zofran) 4 mg PRN Q6HRS PRN IV NAUSEA/VOMITING Last administered on 08/27/18at 11:33; Start 08/24/18 at 09:30 Acetaminophen/ Hydrocodone Bitart (Lortab 5/325) 1 tab PRN Q4HRS PRN PO PAIN Last administered on 08/25/18 08:03; Start 08/24/18 at 09:30; Stop 08/25/18 at 10:55; Status DC Furosemide (Lasix) 40 mg DAILY PO Last administered on 08/25/18 08:01; Start 08/24/18 at 10:00; Stop 08/25/18 at 12:46; Status DC Rifaximin (Xifaxan) 550 mg Q12HR PO Last administered on 08/31/18 08:39; Start 08/24/18 at 10:00 Tramadol HCl (Ultram) 50 mg PRN Q6HRS PRN PO MILD PAIN Last administered on 08/30 18:54; Start 08/24/18 at 09:30 Spironolactone (Aldactone) 50 mg Q48H PO Last administered on 08/24/18 15:45; Start 08/24/18 at 09:00; Stop 08/25/18 at 12:46; Status DC Lactulose (Lactulose) 20 gm BID PO Last administered on 08/31/18 08:39; Start 08/24/18 at 10:00 Albumin Human 200 ml @ As Directed STK-MED ONCE IV ; Start 08/24/18 at 13:20; Stop 08/24/18 at 13:21; Status DC Albumin Human 100 ml @ 100 mls/hr 1X ONCE IV Last administered on 08/24/18 13:30; Start 08/24/18 at 15:00; Stop 08/24/18 at 15:59; Status DC Albumin Human 100 ml @ 100 mls/hr 1X ONCE IV Last administered on 08/24/18at 14:00; Start 08/24/18 at 15:00; Stop 08/24/18 at 15:59; Status DC Acetaminophen/ Hydrocodone Bitart (Lortab 10/325) 1 tab PRN Q4HRS PRN PO MODERATE-SEVERE PAIN Last administered on 08/31/18 06:25; Start 08/25/18 at 11: 00 Lactobacillus Rhamnosus (Culturelle) 1 cap BID PO Last administered on 08:39; Start 08/25/18 at 21:00 Linezolid/Dextrose 300 ml @ 300 mls/hr Q12HR IV Last administered on 08/30/18 08:30; Start 08/28/18 at 15:30; Stop 08/30/18 at 10:25; Status DC Diphenhydramine HCl (Benadryl) 25 mg 1X ONCE PO Last administered on 08/29/18 11:14; Start 08/29/18 at 11:45; Stop 08/29/18 at 11:46; Status DC Acetaminophen (Tylenol) 650 mg 1X ONCE PO Last administered on 08/29/18 11:14 ; Start 08/29/18 at 11:45; Stop 08/29/18 at 11:46; Status DC Linezolid (Zyvox) 600 mg BID PO Last administered on 08/31/18 08:39; Start 08/30 at 21:00 Sodium Chloride 1,000 ml @ 75 mls/hr [id number] IV ; Start 08/31/18 at 10:30 Active Scripts Active Lasix (Furosemide) 40 Mg Tablet 1 Tab PO DAILY Xifaxan (Rifaximin) 550 Mg Tablet 550 Mg PO Q12HR Aldactone (Spironolactone) 25 Mg Tablet 50 Mg PO QODAY Lasix (Furosemide) 20 Mg Tablet 1 Tab PO DAILY Tramadol Hcl 50 Mg Tablet 50 Mg PO Q6HRS PRN 7 Days Vitals/I & O Vital Sign - Last 24 Hours 08/30/18 08/30/18 08/30/18 08/30/18 11:25 12:27 15:22 16:53 Temp 97.3 97.5 97.3 97.5 Pulse 112 99 Resp 18 B/P (MAP) 114/83 (93) 85/56 (66) Pulse Ox 100 97 O2 Delivery Room Air Room Air Room Air 08/30/18 08/30/18 08/30/18 08/30/18 18:54 19:00 19:10 19:50 Temp 98.2 98.2 Pulse 106 Resp 18 18 18 B/P (MAP) 110/72 (85) Pulse Ox 90 97 O2 Delivery Room Air Room Air Room Air Room Air 08/30/18 08/30/18 08/31/18 08/31/18 21:05 22:51 02:38 03:00 Temp 97.4 98.5 97.4 98.5 Pulse 103 107 Resp 18 18 16 18 B/P (MAP) 90/58 (69) 97/62 (74) Pulse Ox 97 99 99 97 O2 Delivery Room Air Room Air Room Air Room Air 08/31/18 08/31/18 08/31/18 08/31/18 03:30 06:25 07:00 07:25 Temp 98.2 98.2 Pulse 107 Resp 16 16 18 B/P (MAP) 99/64 (76) Pulse Ox 97 97 98 O2 Delivery Room Air Room Air Room Air 08/31/18 08:00 O2 Delivery Room Air Intake and Output 08/30/18 08/30/18 08/31/18 15:00 23:00 07:00 Intake Total 1150 ml 250 ml 350 ml Output Total 625 ml Balance 1150 ml 250 ml -275 ml CHARLES EMERSON MD Aug 31, 2018 10:33
[2018-08-31] MEDS: IV NORMAL SALINE 1000ML BAG 1,000 ML IV SCH (11:19)
--- NOTE | 2018-08-31 12:06 | PDOC ---
Subjective: Subjective: brings him food - says without salt. Abd uncomfortable again. Objective: Vital Signs: Vital Signs Date Time Temp Pulse Resp B/P (MAP) Pulse Ox O2 Delivery O2 Flow Rate FiO2 08/31/18 11:23 Room Air 08/31/18 10:47 97.9 111 18 88/59 (69) 98 97.9 Labs: Laboratory Tests Test 08/31/18 06:30 White Blood Count 3.3 x10^3/uL Red Blood Count 3.27 x10^6/uL Hemoglobin 9.7 g/dL Hematocrit 30.0 % Mean Corpuscular Volume 92 fL Mean Corpuscular Hemoglobin 30 pg Mean Corpuscular Hemoglobin Concent 32 g/dL Red Cell Distribution Width 15.8 % Platelet Count 104 x10^3/uL Neutrophils (%) (Auto) 41 % Lymphocytes (%) (Auto) 43 % Monocytes (%) (Auto) 9 % Eosinophils (%) (Auto) 7 % Basophils (%) (Auto) 1 % Neutrophils # (Auto) 1.3 x10^3uL Lymphocytes # (Auto) 1.4 x10^3/uL Monocytes # (Auto) 0.3 x10^3/uL Eosinophils # (Auto) 0.2 x10^3/uL Basophils # (Auto) 0.0 x10^3/uL Sodium Level 128 mmol/L Potassium Level 4.7 mmol/L Chloride Level 98 mmol/L Carbon Dioxide Level 22 mmol/L Anion Gap 8 Blood Urea Nitrogen 25 mg/dL Creatinine 1.9 mg/dL Estimated GFR (Cockcroft-Gault) 36.9 BUN/Creatinine Ratio 13 Glucose Level 122 mg/dL Calcium Level 8.8 mg/dL Phosphorus Level 4.6 mg/dL Total Bilirubin 1.4 mg/dL Aspartate Amino Transf (AST/SGOT) 47 U/L Alanine Aminotransferase (ALT/SGPT) 22 U/L Alkaline Phosphatase 143 U/L Total Protein 6.9 g/dL Albumin 2.1 g/dL Albumin/Globulin Ratio 0.4 PE: GEN: NAD LUNGS: CTAB HEART: RRR ABD: distended/ascites NEURO/PSYCH: A & O 3, flat A/P: ESLD w/ recurrent ascites JERROD UTI -- Recheck INR, ask for paracentesis again. VALERIA ALCOCER Aug 31, 2018 12:06
[2018-08-31 12:32] LABS: PROTHROMBIN TIME PATIENT 18.2 SEC (11.7-14.0)
[2018-08-31] MEDS ORDERED: ALBUMIN HUMAN 25% 100 ML IV ONE ×3 (15:30→16:00)
--- NOTE | 2018-08-31 16:29 | RAD ---
Ultrasound-guided paracentesis 08/31/2018 4:25 PM Procedure: The risks and benefits of the procedure were discussed the patient. Informed consent was obtained. A timeout procedure was performed. Sonographic evaluation of the abdomen was performed demonstrating ascites . The left lower quadrant was prepped and draped using maximum sterile barrier technique. 1% lidocaine without epinephrine was administered for local anesthesia. Real-time ultrasonographic guidance was used in passing a 5 Portuguese Yueh catheter into the fluid collection. 8 L of serous ascites was removed. The catheter was removed and pressure held to achieve hemostasis. A sterile dressing was applied. Impression: Successful ultrasound-guided paracentesis
[2018-08-31] MEDS: traMADol 50 MG TABLET PO PRN (20:11)
[2018-09-01] MEDS: HYDROcodone/APAP 10/325 1 TAB TABLET PO PRN ×3 (01:50→13:03)
[2018-09-01] MEDS: IV NORMAL SALINE 1000ML BAG 1,000 ML IV SCH ×2 (01:51→13:10)
[2018-09-01 02:54] VITALS: BP 98/68
[2018-09-01] MEDS: traMADol 50 MG TABLET PO PRN ×3 (04:04→16:33)
[2018-09-01 04:30] LABS: ALBUMIN 2.5 g/dL (3.4-5.0); CALCIUM 8.1 mg/dL (8.5-10.1); CREATININE 1.8 mg/dL (0.7-1.3); GFR 39.2; POTASSIUM 3.7 mmol/L (3.5-5.1)
[2018-09-01 07:00] VITALS: BP 103/69
[2018-09-01] MEDS: LACTOBACILLUS RHAMNOSUS GG 1 CAPSULE. PO SCH (09:44)
[2018-09-01] MEDS: LINEZOLID 600 MG TABLET PO SCH (09:44)
[2018-09-01] MEDS: LACTULOSE 20 GM/30 ML SOLUTION. PO SCH (09:44)
[2018-09-01] MEDS: rifAXIMin 550 MG TABLET PO SCH (09:44)
[2018-09-01 11:00] VITALS: BP 104/70
--- NOTE | 2018-09-01 13:58 | PDOC ---
SUBJECTIVE ROS Stable s/p paracentesis 08/31 OBJECTIVE Vital Signs Vital Signs Date Time Temp Pulse Resp B/P (MAP) Pulse Ox O2 Delivery O2 Flow Rate FiO2 09/01/18 13:03 14 09/01/18 11:00 97.7 110 104/70 (81) 96 Room Air 97.7 I & 0 Intake and Output 09/01/18 06:59 Intake Total 1800 ml Output Total 8200 ml Balance -6400 ml Intake Oral 800 ml IV Total 1000 ml Output Urine Total 200 ml Drainage Total 8000 ml PHYSICAL EXAM Physical Exam General: Alert, Oriented X3, Cooperative, No acute distress HEENT: Atraumatic, PERRLA, EOMI, Mucous membr. moist/pink Neck Supple Lungs: Clear to auscultation, Normal air movement Heart: S1S2, RRR, no gallops, no murmurs Abdomen: Normal bowel sounds, distended, ascites+, Extremities: , edema +, Bilat LE Skin: No rashes, Neuro:Grossly Normal No horan DIAGNOSIS/ASSESSMENT Assessment & Plan JERROD- Prerenal Vs Hepatorenal S/P Multiple Paracentesis, Hypotensive Most recent 08/31- 8 Lts , 08/24 - 9.6 lts gently Hydration, cr stable ESLD- cirrhosis Multiple Paracentesis on lactulose and Xifaxan, has declined palliative discussion in the past UTI - on IV atbx Hyponatremia- Secondary to ESLD MELD higher when calculated for Hyponatremia Not a transplant or TIPS candidate as per GI . Anemia- Hgb<7 PRBC ordered by primary ETOH Abuse Refractory/Recurrent ascites CT 08/23 - 1. Hepatic cirrhosis with changes of portal hypertension including collateral vasculature and splenomegaly. 2. Cholelithiasis 3. Moderate to large volume abdominal and pelvic ascites. 4. No evidence for small or large bowel obstruction. COMMENT/RELEVANT DATA Meds Current Medications Medications (Trade) Dose Ordered Sig/Marc Start Time Stop Time Status Last Admin Dose Admin Acetaminophen (Tylenol) 650 mg 1X ONCE 08/29/18 11:45 08/29/18 11:46 DC 08/29/18 11:14 650 MG Acetaminophen/ Hydrocodone Bitart (Lortab 10/325) 1 tab PRN Q4HRS PRN 08/25/18 11:00 09/01/18 13:03 1 TAB Acetaminophen/ Hydrocodone Bitart (Lortab 5/325) 1 tab PRN Q4HRS PRN 08/24/18 09:30 08/25/18 10:55 DC 08/25/18 08:03 1 TAB Albumin Human 100 ml @ 100 mls/hr 1X ONCE 08/31/18 16:00 08/31/18 16:59 DC 08/31/18 16:09 100 MLS/HR Ciprofloxacin/ Dextrose 200 ml @ 200 mls/hr Q12HR 08/24/18 09:00 08/24/18 09:00 DC Diphenhydramine HCl (Benadryl) 25 mg 1X ONCE 08/29/18 11:45 08/29/18 11:46 DC 08/29/18 11:14 25 MG Furosemide (Lasix) 40 mg DAILY 08/24/18 10:00 08/25/18 12:46 DC 08/25/18 08:01 40 MG Ibuprofen (Motrin) 600 mg 1X ONCE 08/24/18 00:45 08/24/18 00:46 DC 08/24/18 01:07 600 MG Info (CONTRAST GIVEN -- Rx MONITORING) 1 each PRN DAILY PRN 08/23/18 23:55 08/25/18 23:54 DC Iohexol (Omnipaque 300 Mg/ml) 75 ml 1X ONCE 08/23/18 23:55 08/23/18 23:56 DC 08/23/18 00:30 75 ML Lactobacillus Rhamnosus (Culturelle) 1 cap BID 08/25/18 21:00 09/01/18 09:44 1 CAP Lactulose (Lactulose) 20 gm BID 08/24/18 10:00 09/01/18 09:44 20 GM Levofloxacin/ Dextrose 100 ml @ 100 mls/hr 1X ONCE 08/24/18 00:45 08/24/18 01:44 UNV Linezolid (Zyvox) 600 mg BID 08/30/18 21:00 09/01/18 09:44 600 MG Linezolid/Dextrose 300 ml @ 300 mls/hr Q12HR 08/28/18 15:30 08/30/18 10:25 DC 08/30/18 08:30 300 MLS/HR Morphine Sulfate (Morphine Sulfate) 4 mg PRN Q2HR PRN 08/23/18 23:45 08/24/18 23:44 DC 08/24/18 23:17 4 MG Ondansetron HCl (Zofran) 4 mg PRN Q6HRS PRN 08/24/18 09:30 08/27/18 11:33 4 MG Rifaximin (Xifaxan) 550 mg Q12HR 08/24/18 10:00 09/01/18 09:44 550 MG Sodium Chloride 1,000 ml @ 75 mls/hr [id number] 08/31/18 10:30 09/01/18 01:51 75 MLS/HR Spironolactone (Aldactone) 50 mg Q48H 08/24/18 09:00 08/25/18 12:46 DC 08/24/18 15:45 50 MG Tramadol HCl (Ultram) 50 mg PRN Q6HRS PRN 08/24/18 09:30 09/01/18 09:52 50 MG Trimethoprim/ Sulfamethoxazole (Bactrim Ds) 1 tab BID 08/24/18 01:00 08/28/18 15:06 DC 08/28/18 08:27 1 TAB Lab Laboratory Tests Test 09/01/18 03:03 Sodium Level 129 mmol/L (136-145) Potassium Level 3.7 mmol/L (3.5-5.1) Chloride Level 97 mmol/L (98-107) Carbon Dioxide Level 20 mmol/L (21-32) Anion Gap 12 (6-14) Blood Urea Nitrogen 25 mg/dL (8-26) Creatinine 1.8 mg/dL (0.7-1.3) Estimated GFR (Cockcroft-Gault) 39.2 Glucose Level 111 mg/dL (70-99) Calcium Level 8.1 mg/dL (8.5-10.1) Phosphorus Level 5.0 mg/dL (2.6-4.7) Albumin 2.5 g/dL (3.4-5.0) Results All relevant outside records, renal labs, imaging studies, telemetry/EKG's were reviewed. ALIX BYRD MD Sep 01, 2018 13:57
--- NOTE | 2018-09-01 13:59 | PDOC ---
Objective: Vital Signs: Vital Signs Date Time Temp Pulse Resp B/P (MAP) Pulse Ox O2 Delivery O2 Flow Rate FiO2 09/01/18 13:03 14 09/01/18 11:00 97.7 110 104/70 (81) 96 Room Air 97.7 Labs: Laboratory Tests Test 09/01/18 03:03 Sodium Level 129 mmol/L Potassium Level 3.7 mmol/L Chloride Level 97 mmol/L Carbon Dioxide Level 20 mmol/L Anion Gap 12 Blood Urea Nitrogen 25 mg/dL Creatinine 1.8 mg/dL Estimated GFR (Cockcroft-Gault) 39.2 Glucose Level 111 mg/dL Calcium Level 8.1 mg/dL Phosphorus Level 5.0 mg/dL Albumin 2.5 g/dL Imaging: Paracentesis 08/31 8 L of serous ascites PE: GEN: NAD NEURO/PSYCH: sleeping, not awakened A/P: ESLD w/ recurrent ascites - paracentesis again yesterday JERROD, hyponatremia UTI -- Continue same per GI. VALERIA ALCOCER Sep 01, 2018 13:59
[2018-09-01] MEDS ORDERED: LINE600T PO (14:43)
[2018-09-01 15:00] VITALS: BP 93/66
--- NOTE | 2018-09-01 19:35 | PDOC3 ---
Discharge Summary Visit Information Date of Admission: Sep 21, 2018 Date of Discharge: Sep 01, 2018 Final Diagnosis Problems Medical Problems: (1) Acute pancreatitis Status: Acute (2) Ascites Status: Acute (3) ETOH abuse Status: Acute Brief Hospital Course Allergies Allergies Coded Allergies Type Severity Reaction Last Updated Verified Penicillins Allergy Severe ANPHYLAXIS 05/30/18 Yes trovafloxacin Allergy Severe Anaphylaxis 05/30/18 Yes Influenza Virus Vaccines Allergy Intermediate 06/16/18 Yes Vital Signs Vital Signs Date Time Temp Pulse Resp B/P (MAP) Pulse Ox O2 Delivery O2 Flow Rate FiO2 09/01/18 16:33 14 Room Air 09/01/18 15:00 97.7 105 93/66 (75) 95 97.7 Lab Results Laboratory Tests Test 08/31/18 06:30 09/01/18 03:03 White Blood Count 3.3 x10^3/uL (4.0-11.0) Red Blood Count 3.27 x10^6/uL (4.30-5.70) Hemoglobin 9.7 g/dL (13.0-17.5) Hematocrit 30.0 % (39.0-53.0) Mean Corpuscular Volume 92 fL (79-100) Mean Corpuscular Hemoglobin 30 pg (25-35) Mean Corpuscular Hemoglobin Concent 32 g/dL (31-37) Red Cell Distribution Width 15.8 % (11.5-14.5) Platelet Count 104 x10^3/uL (140-400) Neutrophils (%) (Auto) 41 % (31-73) Lymphocytes (%) (Auto) 43 % (24-48) Monocytes (%) (Auto) 9 % (0-9) Eosinophils (%) (Auto) 7 % (0-3) Basophils (%) (Auto) 1 % (0-3) Neutrophils # (Auto) 1.3 x10^3uL (1.8-7.7) Lymphocytes # (Auto) 1.4 x10^3/uL (1.0-4.8) Monocytes # (Auto) 0.3 x10^3/uL (0.0-1.1) Eosinophils # (Auto) 0.2 x10^3/uL (0.0-0.7) Basophils # (Auto) 0.0 x10^3/uL (0.0-0.2) Prothrombin Time 18.2 SEC (11.7-14.0) Prothromb Time International Ratio 1.5 (0.8-1.1) Sodium Level 128 mmol/L (136-145) 129 mmol/L (136-145) Potassium Level 4.7 mmol/L (3.5-5.1) 3.7 mmol/L (3.5-5.1) Chloride Level 98 mmol/L (98-107) 97 mmol/L (98-107) Carbon Dioxide Level 22 mmol/L (21-32) 20 mmol/L (21-32) Anion Gap 8 (6-14) 12 (6-14) Blood Urea Nitrogen 25 mg/dL (8-26) 25 mg/dL (8-26) Creatinine 1.9 mg/dL (0.7-1.3) 1.8 mg/dL (0.7-1.3) Estimated GFR (Cockcroft-Gault) 36.9 39.2 BUN/Creatinine Ratio 13 (6-20) Glucose Level 122 mg/dL (70-99) 111 mg/dL (70-99) Calcium Level 8.8 mg/dL (8.5-10.1) 8.1 mg/dL (8.5-10.1) Phosphorus Level 4.6 mg/dL (2.6-4.7) 5.0 mg/dL (2.6-4.7) Total Bilirubin 1.4 mg/dL (0.2-1.0) Aspartate Amino Transf (AST/SGOT) 47 U/L (15-37) Alanine Aminotransferase (ALT/SGPT) 22 U/L (16-63) Alkaline Phosphatase 143 U/L (46-116) Total Protein 6.9 g/dL (6.4-8.2) Albumin 2.1 g/dL (3.4-5.0) 2.5 g/dL (3.4-5.0) Albumin/Globulin Ratio 0.4 (1.0-1.7) Laboratory Tests Test 09/01/18 03:03 Sodium Level 129 mmol/L (136-145) Potassium Level 3.7 mmol/L (3.5-5.1) Chloride Level 97 mmol/L (98-107) Carbon Dioxide Level 20 mmol/L (21-32) Anion Gap 12 (6-14) Blood Urea Nitrogen 25 mg/dL (8-26) Creatinine 1.8 mg/dL (0.7-1.3) Estimated GFR (Cockcroft-Gault) 39.2 Glucose Level 111 mg/dL (70-99) Calcium Level 8.1 mg/dL (8.5-10.1) Phosphorus Level 5.0 mg/dL (2.6-4.7) Albumin 2.5 g/dL (3.4-5.0) Brief Hospital Course A 58-year-old male known to me, known to the whole hospital because he is a frequent flyer for recurrent abdominal paracentesis. I am not sure when his last one was, but it is usually within the last 2 or 4 weeks and he would drain over a liter, usually at 2 liters if memory serves me right. In any case, the computer system is down; hence, I do not have records, but I do not think he had a recent SBP episode recently. In any case, he is just waiting for abdominal paracentesis tap, the labs are unremarkable. Total bilirubin is 2.5. (copied from h and p) Mr Thompson is a 58 yo M w/ PMHx cirrhosis with ascites multiple admissions This time admitted on 08/23 with abdominal distension Undergoes paracentesis, most recent 08/24 ascites better since admit with s/p paracentesis 9.6 L of serous fluid, now i am unsure of diuretics due to kidney fxn now with acute renal failure, this has happened before 08/29: Hb 6.9 this morning, 1u PRBC ordered. He and his ex- feel his abdomen is more swollen today than when he came into the hospital. States his pain is not well controlled. 08/30: Hb to 8.9 after transfusion. Lactate normalized today. Cr. down to 1.6. WBC 2.7 with ANC < 1000, afebrile. ANC 1300 today. He feels more swollen. Cr. from 1.6-> 1.9, getting IVF per nephrology. had paracentesis again on 08/31/18 as per GI. He also received albumin with the paracentesis Cont linezolid for his enterococcal UTI, unfortunately his PCN and quinolone allergies preclude any other treatment and his JERROD prevented vancomycin therapy. As it is by definition a complicated UTI he should have 2 weeks of therapy. Transfused 1u PRBC with good effect Patient medically optimized for discharge All concerns addressed prior to departure. VEry high risk for readmission given his end stage liver disease. poor prognosis overall, i have encouraged to seek a transplant program. Physical exam: HENT: Normocephalic, atraumatic, bilateral external ears normal, oropharynx moist, no oral exudates, nose normal. [] Eyes: PERRLA, EOMI, conjunctiva normal, no discharge. [] Neck: Normal range of motion, no tenderness, supple, no stridor. [] Cardiovascular: TACHY 110 Heart rate regular rhythm, no murmur [] Lungs & Thorax: Bilateral breath sounds clear to auscultation [] Abdomen: Moderately rounded abdomen consistent with ascites. Bowel sounds normal , soft, tenderness diffusely throughout the abdomen, no masses, no pulsatile masses. [] Skin: Warm, dry, no erythema, no rash. [] Back: No tenderness, no CVA tenderness. [] Extremities: No tenderness, no cyanosis, no clubbing, ROM intact, no edema. [] Neurologic: Alert and oriented X 3, normal motor function, normal sensory function, no focal deficits noted. [] Psychologic: Affect normal, judgement normal, mood normal. [] Discharge Information Condition at Discharge: Improved Follow Up: Weeks Disposition/Orders: D/C to Home Scheduled Furosemide (Lasix) 40 Mg Tablet, 1 TAB PO DAILY for ascites, #30 Ref 1 Prescribed by: AAMIR GREER on 08/20/18952 Last Action: Continued on 08/24/18919 by ALEIDA VAUGHAN Linezolid (Zyvox) 600 Mg Tablet, 600 MG PO BID for UTI for 7 Days, #14 Prescribed by: ALISA ROLDAN MD on 09/01/18 144 Rifaximin (Xifaxan) 550 Mg Tablet, 550 MG PO Q12HR for liver function, #60 Ref 1 Prescribed by: AAMIR GREER on 08/20/18952 Last Action: Continued on 08/24/18919 by ALEIDA VAUGHAN Spironolactone (Aldactone) 25 Mg Tablet, 50 MG PO QODAY for ascites, #30 Prescribed by: AAMIR GREER on 08/20/18952 Last Action: Converted on 08/24/18919 by ALEIDA VAUGHAN Scheduled PRN Tramadol Hcl (Tramadol Hcl) 50 Mg Tablet, 50 MG PO Q6HRS PRN for PAIN for 7 Days , #28 Prescribed by: ALISA ROLDAN MD on 08/08/181209 Last Action: Continued on 08/24/18919 by ALEIDA VAUGHAN Discontinued Medications Furosemide (Lasix) 20 Mg Tablet, 1 TAB PO DAILY for ascites, #90 Ref 1 Prescribed by: ALISA ROLDAN MD on 08/08/181209 Last Action: HELD on 08/24/18919 by ALISA FOWLER MD Sep 01, 2018 19:35
== END 2018-09-01 17:53 | disposition home or self-care (01) | DRG 432 ==
LOC: ER 23:05 → 5 SOUTH 23:28 → 5 NORTH 08-25 12:20
PROVIDERS: ADMIT Family Medicine; ATTEND Family Medicine
PROC: 0W9G3ZZ Drainage of Peritoneal Cavity, Percutaneous Approach (ICD-10-PCS; principal; 2018-08-24)
PROC: 30233N1 Transfusion of Nonautologous Red Blood Cells into Peripheral Vein, Percutaneous Approach (ICD-10-PCS; 2018-08-29)
PROC: 0W9G3ZZ Drainage of Peritoneal Cavity, Percutaneous Approach (ICD-10-PCS; 2018-08-31)
DX: K70.31 Alcoholic cirrhosis of liver with ascites (principal); K85.90 Acute pancreatitis without necrosis or infection, unspecified; N17.0 Acute kidney failure with tubular necrosis; E43 Unspecified severe protein-calorie malnutrition; K76.6 Portal hypertension; E87.1 Hypo-osmolality and hyponatremia; N39.0 Urinary tract infection, site not specified; G93.40 Encephalopathy, unspecified; D68.9 Coagulation defect, unspecified; K72.90 Hepatic failure, unspecified without coma; D63.8 Anemia in other chronic diseases classified elsewhere; K80.20 Calculus of gallbladder without cholecystitis without obstruction; F10.10 Alcohol abuse, uncomplicated; B95.2 Enterococcus as the cause of diseases classified elsewhere; R16.1 Splenomegaly, not elsewhere classified; E87.5 Hyperkalemia; J45.909 Unspecified asthma, uncomplicated; K21.9 Gastro-esophageal reflux disease without esophagitis; Z96.659 Presence of unspecified artificial knee joint; Y90.0 Blood alcohol level of less than 20 mg/100 ml; D69.6 Thrombocytopenia, unspecified; R31.29 Other microscopic hematuria; Z82.49 Family history of ischemic heart disease and other diseases of the circulatory system; Z88.1 Allergy status to other antibiotic agents; Z88.0 Allergy status to penicillin; Z88.7 Allergy status to serum and vaccine; Z91.19 Patient's noncompliance with other medical treatment and regimen; Z87.11 Personal history of peptic ulcer disease
CPT/HCPCS: 36415; 49083; 74177; 80048; 80053; 80069; 80076; 80307; 81001; 82140; 83605; 83690; 84100; 85025; 85610; 85730; 86850; 86900; 86901; 86920; 87040; 87086; 87186; 87641; 93005; 96374; 96375; G0480; J2020; J2270; J2405; J7030; P9016; P9046; Q0163; Q9967; 99285-25

== ENCOUNTER 2018-09-06 18:50 | Inpatient (IN) | payer OTHER ==
[~2018-09-06] VITALS: Ht 172.7 cm; Wt 75.8 kg
[~2018-09-06 18:50] MED LIST changes: +LINE600T PO
--- NOTE | 2018-09-06 19:58 | PHYS DOC ---
Past Medical History Past Medical History: Asthma, Liver Disease, Other Additional Past Medical Histor: CELLULITIS,BORDERLINE HTN, ASCITES Past Surgical History: Other Additional Past Surgical Histo: L WRIST ORIF,L KNEE, ABD TAPPED Alcohol Use: Occasionally Drug Use: None Adult General Chief Complaint Chief Complaint: ABDOMINAL PAIN HPI HPI Patient is a 58 year old male with history of hepatic encephalopathy from alcoholism presents for evaluation of "worsening ascites" and shortness of breath for the past 3-4 days. He reports drinking alcohol last night, was upset over the of his dog. He has not yet secured a primary care doctor. He lives with his ex- who is helping with his care, she states that he has tried to make appointments and is going down a list of providers that she was given at his discharge but has not found one yet that is accepting new patients. He has had to have multiple paracentesis in the past. Reports no recent fevers. Review of Systems Review of Systems Constitutional: Denies fever or chills [] Eyes: Denies change in visual acuity, redness, or eye pain [] HENT: Denies nasal congestion or sore throat [] Respiratory: Reports shortness of breath [] Cardiovascular: No additional information not addressed in HPI [] GI: Reports abdominal pain and bloating[] : Denies dysuria or hematuria [] Musculoskeletal: Denies back pain or joint pain [] Integument: Reports diffuse bruising from "thin skin"[] Neurologic: Denies headache, focal weakness or sensory changes [] Endocrine: Denies polyuria or polydipsia [] All other systems were reviewed and found to be within normal limits, except as documented in this note. Current Medications Current Medications Current Medications Medications (Trade) Dose Ordered Sig/Marc Start Time Stop Time Status Last Admin Dose Admin Ceftriaxone Sodium (Rocephin) 1 gm 1X ONCE 09/06/18 21:45 09/06/18 21:46 UNV Morphine Sulfate (Morphine Sulfate) 4 mg 1X ONCE 09/06/18 20:45 09/06/18 20:51 DC 09/06/18 20:59 4 MG Allergies Allergies Allergies Coded Allergies Type Severity Reaction Last Updated Verified Penicillins Allergy Severe ANPHYLAXIS 05/30/18 Yes trovafloxacin Allergy Severe Anaphylaxis 05/30/18 Yes Influenza Virus Vaccines Allergy Intermediate 06/16/18 Yes Physical Exam Physical Exam Constitutional: well nourished, no acute distress, UNCOMFORTABLE IN APPEARANCE. [] Eyes: PERRLA, EOMI, conjunctiva normal, no discharge. [] Neck: Normal range of motion, no tenderness, supple, no stridor. [] Cardiovascular:TACHYCARDIA, no murmur [] Lungs & Thorax: Bilateral breath sounds clear to auscultation [] Abdomen: MODERATELY DISTENDED ABD CONSISTENT C CELLULITIS. [] Skin: DIFFUSE ECCHYMOSIS TO EXTREMITIES, SKIN TEARS TO BUE. [] Extremities: No tenderness, no cyanosis, no clubbing, ROM intact [] Neurologic: Alert and oriented X 3, normal motor function, normal sensory function, no focal deficits noted. [] Psychologic: Affect normal, judgement normal, mood normal. [] Current Patient Data Vital Signs Vital Signs Date Time Temp Pulse Resp B/P (MAP) Pulse Ox O2 Delivery O2 Flow Rate FiO2 09/06/18 20:59 18 96 Room Air 09/06/18 20:41 119 101/71 (81) 09/06/18 19:33 99.0 99.0 Lab Values Laboratory Tests Test 09/06/18 20:10 09/06/18 20:40 White Blood Count 4.1 x10^3/uL (4.0-11.0) Red Blood Count 3.13 x10^6/uL (4.30-5.70) L Hemoglobin 8.9 g/dL (13.0-17.5) L Hematocrit 28.5 % (39.0-53.0) L Mean Corpuscular Volume 91 fL (79-100) Mean Corpuscular Hemoglobin 29 pg (25-35) Mean Corpuscular Hemoglobin Concent 31 g/dL (31-37) Red Cell Distribution Width 16.5 % (11.5-14.5) H Platelet Count 62 x10^3/uL (140-400) L Neutrophils (%) (Auto) 57 % (31-73) Lymphocytes (%) (Auto) 32 % (24-48) Monocytes (%) (Auto) 7 % (0-9) Eosinophils (%) (Auto) 4 % (0-3) H Basophils (%) (Auto) 0 % (0-3) Neutrophils # (Auto) 2.4 x10^3uL (1.8-7.7) Lymphocytes # (Auto) 1.3 x10^3/uL (1.0-4.8) Monocytes # (Auto) 0.3 x10^3/uL (0.0-1.1) Eosinophils # (Auto) 0.1 x10^3/uL (0.0-0.7) Basophils # (Auto) 0.0 x10^3/uL (0.0-0.2) Platelet Estimate Decreased (ADEQUATE) Lactic Acid Level 3.6 mmol/L (0.4-2.0) H Sodium Level 126 mmol/L (136-145) L Potassium Level 4.7 mmol/L (3.5-5.1) Chloride Level 96 mmol/L (98-107) L Carbon Dioxide Level 16 mmol/L (21-32) L Anion Gap 14 (6-14) Blood Urea Nitrogen 47 mg/dL (8-26) H Creatinine 1.8 mg/dL (0.7-1.3) H Estimated GFR (Cockcroft-Gault) 39.2 BUN/Creatinine Ratio 26 (6-20) H Glucose Level 134 mg/dL (70-99) H Calcium Level 8.6 mg/dL (8.5-10.1) Total Bilirubin 2.1 mg/dL (0.2-1.0) H Aspartate Amino Transferase (AST) 39 U/L (15-37) H Alanine Aminotransferase (ALT) 24 U/L (16-63) Alkaline Phosphatase 111 U/L (46-116) Ammonia 56 mcmol/L (11-34) H Creatine Kinase 57 U/L (39-308) Creatine Kinase MB (Mass) 3.0 ng/mL (0.0-3.6) Creatine Kinase MB Relative Index % (0-4) Troponin I Quantitative < 0.017 ng/mL (0.000-0.055) Total Protein 6.3 g/dL (6.4-8.2) L Albumin 2.2 g/dL (3.4-5.0) L Albumin/Globulin Ratio 0.5 (1.0-1.7) L Lipase 518 U/L (73-393) H Laboratory Tests 09/06/18 20:10 Laboratory Tests 09/06/18 20:40 EKG EKG EKG read by emergency room physician heart rate 121 interpretation sinus tachycardia, no STEMI[] Radiology/Procedures Radiology/Procedures [] Course & Med Decision Making Course & Med Decision Making Pertinent Labs and Imaging studies reviewed. (See chart for details) [he is admitted to Dr. Ruiz, consultation placed for GI with Dr. Amandeep Louis.] Nelson Disclaimer Dragon Disclaimer This electronic medical record was generated, in whole or in part, using a voice recognition dictation system. Departure Departure Impression: Primary Impression: Hepatic encephalopathy Additional Impressions: Ascites ETOH abuse Disposition: 09 ADMITTED INPATIENT Admitting Physician: Kristofer Vargas Referrals: NO PCP (PCP) Problem Qualifiers ALFREDO MCINTYRE [employer] Sep 06, 2018 19:58
[2018-09-06 20:27] LABS: BASO % 0 % (0-3); EOS # 0.1 x10^3/uL (0.0-0.7); EOS % 4 % (0-3); HEMATOCRIT 28.5 % (39.0-53.0); HEMOGLOBIN 8.9 g/dL (13.0-17.5); LYMPH # 1.3 x10^3/uL (1.0-4.8); LYMPH % 32 % (24-48); MEAN CORPUSCULAR HEMOGLOBIN 29 pg (25-35); MEAN CORPUSCULAR HGB CONC 31 g/dL (31-37); MEAN CORPUSCULAR VOLUME 91 fL (79-100); MONO # 0.3 x10^3/uL (0.0-1.1); MONO % 7 % (0-9); NEUT # 2.4 x10^3uL (1.8-7.7); NEUT % 57 % (31-73); PLATELET COUNT 62 x10^3/uL (140-400); RED BLOOD COUNT 3.13 x10^6/uL (4.30-5.70); RED CELL DISTRIBUTION WIDTH 16.5 % (11.5-14.5); WHITE BLOOD COUNT 4.1 x10^3/uL (4.0-11.0)
[2018-09-06] MEDS ORDERED: MORPHINE SULFATE 4 MG/ML VIAL. IV ONE (20:45)
[2018-09-06 20:46] LABS: PLT ESTIMATE DECREASED (ADEQUATE)
[2018-09-06 21:02] LABS: CALCIUM 8.6 mg/dL (8.5-10.1); CREATININE 1.8 mg/dL (0.7-1.3); GFR 39.2; POTASSIUM 4.7 mmol/L (3.5-5.1)
[2018-09-06 21:08] LABS: ALBUMIN 2.2 g/dL (3.4-5.0); ALBUMIN/GLOBULIN RATIO 0.5 (1.0-1.7); TOTAL BILIRUBIN 2.1 mg/dL (0.2-1.0); TOTAL PROTEIN 6.3 g/dL (6.4-8.2)
[2018-09-06 21:16] LABS: CREATINE KINASE 57 U/L (39-308)
[2018-09-06] MEDS ORDERED: cefTRIAXone IV Push 1 GM VIAL. IVP ONE ×2 (21:45→22:15)
[2018-09-06 22:30] VITALS: BP 107/62
[2018-09-06] MEDS: MORPHINE SULFATE 4 MG/ML VIAL. IV PRN (23:51)
--- NOTE | 2018-09-07 | NUR ---
pt arrived to floor at 2230 via gurney in stable condition. pt is alert and oriented. pt is on RA. pt has all belongings with him except he states he thinks he left his glasses in ER. call made down to ER they cannot find them, but stated they would call and notify us and send them up if they find them, pt notified of this. pt is complaining of 8/10 pain. pt has call light within reach. will continue to monitor. Addendum: 09/07/18 at 0216 by RUSH MCCALLUM RN RN received report from KAYLAH Yang in ER
--- NOTE | 2018-09-07 00:04 | RAD ---
PROCEDURE: PORTABLE CHEST 1V CLINICAL INDICATION: ER PATIENT. SHORTNESS OF AIR. Hx ASCITES. PRIOR XRAY. COMPARISON: 08/15/2018 FINDINGS: Poor inspiratory effort. No pneumothorax identified. Cardiac and mediastinal contours unremarkable. No pulmonary consolidation or acute airspace disease. No acute osseous abnormalities identified. IMPRESSION: No pulmonary consolidation or acute airspace disease. Electronically signed by: Felix Patton DO (09/07/2018 12:01 AM) [facility]
[2018-09-07 03:13] VITALS: BP 105/68
[2018-09-07] MEDS: MORPHINE SULFATE 4 MG/ML VIAL. IV PRN ×6 (03:13→21:32)
[2018-09-07 07:00] VITALS: BP 114/73
--- NOTE | 2018-09-07 08:02 | EKG ---
[facility] [address] [place] [address] Test Date: 2018-09-06 Test Time: 20:29:07 Pat Name: MARQUISE BARKER Department: Room: 668 1 Gender: M Front Desk Associate: : 1960 Requested By: ALFREDO MCINTYRE Order Number: [id number] Reading MD: Hussain Harrington MD Measurements Intervals [place] Rate: 121 P: 38 TN: 148 QRS: 4 QRSD: 80 T: 31 QT: 304 QTc: 434 Interpretive Statements PROBABLE SR CONSIDER ANTEROSEPTAL INFARCT MILD LVH Electronically Signed On 09-15-2018 9:32:40 CDT by Hussain Harrington MD
--- NOTE | 2018-09-07 09:26 | PDOC2 ---
GI CONSULT Reason For Consult: Hepatic encephalopathy HPI: HPI: 58 y/o male who we have seen many times. H/o alcoholic cirrhosis w/ portal hypertension on past imaging and recurrent ascites requiring paracentesis, previously on diuretics but stopped due to renal issues, still non-compliant w/ drinking. Always on Xifaxan, lactulose, fluid and sodium restriction here - unclear if follows this at home. Back to ER and admitted again - says he was told IR doesn't do outpt paracentesis and he also waited to come in this time because his dog Chewy . PMH: PMH: remote h/o ulcer, cholelithiasis, left knee surgery FH: Family History: No pertinent hx Social History: Smoke: No ALCOHOL: other Drugs: None ROS: GEN: Denies fevers, chills, sweats HEENT: Denies blurred vision, sore throat CV: Denies chest pain RESP: Denies shortness of air, cough GI: Per HPI : Denies hematuria, dysuria ENDO: Denies weight changes NEURO: Denies confusion, dizziness MSK: +swelling SKIN: +bruising/bleeding Vitals: Vitals: Vital Signs Date Time Temp Pulse Resp B/P (MAP) Pulse Ox O2 Delivery O2 Flow Rate FiO2 09/07/18 08:54 Room Air 09/07/18 07:00 97.6 110 20 114/73 (87) 98 97.6 Labs: Labs: Laboratory Tests Test 09/06/18 20:10 09/06/18 20:40 White Blood Count 4.1 x10^3/uL (4.0-11.0) Red Blood Count 3.13 x10^6/uL (4.30-5.70) Hemoglobin 8.9 g/dL (13.0-17.5) Hematocrit 28.5 % (39.0-53.0) Mean Corpuscular Volume 91 fL (79-100) Mean Corpuscular Hemoglobin 29 pg (25-35) Mean Corpuscular Hemoglobin Concent 31 g/dL (31-37) Red Cell Distribution Width 16.5 % (11.5-14.5) Platelet Count 62 x10^3/uL (140-400) Neutrophils (%) (Auto) 57 % (31-73) Lymphocytes (%) (Auto) 32 % (24-48) Monocytes (%) (Auto) 7 % (0-9) Eosinophils (%) (Auto) 4 % (0-3) Basophils (%) (Auto) 0 % (0-3) Neutrophils # (Auto) 2.4 x10^3uL (1.8-7.7) Lymphocytes # (Auto) 1.3 x10^3/uL (1.0-4.8) Monocytes # (Auto) 0.3 x10^3/uL (0.0-1.1) Eosinophils # (Auto) 0.1 x10^3/uL (0.0-0.7) Basophils # (Auto) 0.0 x10^3/uL (0.0-0.2) Platelet Estimate Decreased (ADEQUATE) Lactic Acid Level 3.6 mmol/L (0.4-2.0) Sodium Level 126 mmol/L (136-145) Potassium Level 4.7 mmol/L (3.5-5.1) Chloride Level 96 mmol/L (98-107) Carbon Dioxide Level 16 mmol/L (21-32) Anion Gap 14 (6-14) Blood Urea Nitrogen 47 mg/dL (8-26) Creatinine 1.8 mg/dL (0.7-1.3) Estimated GFR (Cockcroft-Gault) 39.2 BUN/Creatinine Ratio 26 (6-20) Glucose Level 134 mg/dL (70-99) Calcium Level 8.6 mg/dL (8.5-10.1) Total Bilirubin 2.1 mg/dL (0.2-1.0) Aspartate Amino Transf (AST/SGOT) 39 U/L (15-37) Alanine Aminotransferase (ALT/SGPT) 24 U/L (16-63) Alkaline Phosphatase 111 U/L (46-116) Ammonia 56 mcmol/L (11-34) Creatine Kinase 57 U/L (39-308) Creatine Kinase MB (Mass) 3.0 ng/mL (0.0-3.6) Creatine Kinase MB Relative Index % (0-4) Troponin I Quantitative < 0.017 ng/mL (0.000-0.055) Total Protein 6.3 g/dL (6.4-8.2) Albumin 2.2 g/dL (3.4-5.0) Albumin/Globulin Ratio 0.5 (1.0-1.7) Lipase 518 U/L (73-393) Allergies: Coded Allergies: Penicillins (Verified Allergy, Severe, ANPHYLAXIS, 05/30/18) trovafloxacin (Verified Allergy, Severe, Anaphylaxis, 05/30/18) Anaphylactic Influenza Virus Vaccines (Verified Allergy, Intermediate, 06/16/18) Medications: Current Medications Medications (Trade) Dose Ordered Sig/Marc Route PRN Reason Start Time Stop Time Status Last Admin Dose Admin Morphine Sulfate (Morphine Sulfate) 4 mg 1X ONCE IV 09/06/18 20:45 09/06/18 20:51 DC 09/06/18 20:59 Morphine Sulfate (Morphine Sulfate) 4 mg PRN Q2HR PRN IV PAIN 09/06/18 22:30 09/07/18 08:54 Imaging: Imaging: CXR IMPRESSION: No pulmonary consolidation or acute airspace disease. PE: GEN: NAD HEENT: Atraumatic, PERRL LUNGS: CTAB HEART: tachycardic ABD: distended/tight EXTREMITY: trace edema BLE - some erythema w/ chronic changes SKIN: bruising, bleeding wound on RUE NEURO/PSYCH: mostly appropriate A/P: A/P: ESLD w/ ascites - still drinking JERROD/?CKD, anemia, thrombocytopenia, hyponatremia Depression -- Check INR, will ask for paracentesis again, restart Xifaxan and lactulose, and resume fluid and sodium restriction per usual. VALERIA ALCOCER Sep 07, 2018 09:26
[2018-09-07 10:16] LABS: PROTHROMBIN TIME PATIENT 17.3 SEC (11.7-14.0)
[2018-09-07] MEDS: LACTULOSE 20 GM/30 ML SOLUTION. PO SCH ×2 (10:22→21:31)
[2018-09-07] MEDS: rifAXIMin 550 MG TABLET PO SCH ×2 (10:22→21:31)
[2018-09-07 11:00] VITALS: BP 96/70
--- NOTE | 2018-09-07 11:45 | PDOC1 ---
History and Physical Date of Admission Date of Admission DATE: 09/07/18 TIME: 11:37 Source Source: Chart review, Patient History of Present Illness History of Present Illness Mr. Thompson returns, with weakness and abd pain and distention mult admits for same, req. paracentesis, he would like to est. outpatient for f/u paracentesis he gets very weak he is resitant to diuretics, has had renal failure every time we try Past Medical History Cardiovascular: No pertinent hx Pulmonary: No pertinent hx GI: GERD, Peptic Ulcer disease Heme/Onc: Anemia NOS Hepatobiliary: Cirrhosis, Other Musculoskeletal: low back pain Renal/: Acute renal failure Past Surgical History Past Surgical History: Total knee replacement, Other Family History Family History: Hypertension Social History Smoke: No ALCOHOL: other Drugs: None Current Problem List Problem List Problems Medical Problems: (1) Ascites Status: Acute (2) ETOH abuse Status: Acute Current Medications Current Medications Current Medications Morphine Sulfate (Morphine Sulfate) 4 mg 1X ONCE IV Last administered on at 20:59; Start 09/06/18 at 20:45; Stop 09/06/18 at 20:51; Status DC Ceftriaxone Sodium (Rocephin) 1 gm 1X ONCE IVP ; Start 09/06/18 at 21:45; Stop 09/06/18 at 21:45; Status DC Ceftriaxone Sodium (Rocephin) 1 gm 1X ONCE IVP ; Start 09/06/18 at 22:15; Stop 09/06/18 at 22:16; Status DC Morphine Sulfate (Morphine Sulfate) 4 mg PRN Q2HR PRN IV PAIN Last administered on 09/07/18at 08:54; Start 09/06/18 at 22:30 Rifaximin (Xifaxan) 550 mg Q12HR PO Last administered on 09/07/18at 10:22; Start 09/07/18 at 10:00 Lactulose (Lactulose) 20 gm BID PO Last administered on 09/07/18at 10:22; Start 09/07/18 at 10:00 Active Scripts Active Zyvox (Linezolid) 600 Mg Tablet 600 Mg PO BID 7 Days Lasix (Furosemide) 40 Mg Tablet 1 Tab PO DAILY Xifaxan (Rifaximin) 550 Mg Tablet 550 Mg PO Q12HR Aldactone (Spironolactone) 25 Mg Tablet 50 Mg PO QODAY Tramadol Hcl 50 Mg Tablet 50 Mg PO Q6HRS PRN 7 Days Allergies Allergies: Coded Allergies: Penicillins (Verified Allergy, Severe, ANPHYLAXIS, 05/30/18) trovafloxacin (Verified Allergy, Severe, Anaphylaxis, 05/30/18) Anaphylactic Influenza Virus Vaccines (Verified Allergy, Intermediate, 06/16/18) ROS General: YES: Fatigue, Malaise; No: Chills, Night Sweats, Appetite, Other PSYCHOLOGICAL ROS: YES: Concentration difficultie, Sleep disturbances; No: Anxiety, Behavioral Disorder, Decreased libido, Depression, Disorientation, Hallucinations, Hostility, Irritablity, Memory difficulties, Mood Swings, Obsessive thoughts, Other Eyes: No Blurry vision, No Decreased vision, No Double vision, No Dry eyes, No Excessive tearing, No Eye Pain, No Itchy Eyes, No Loss of vision, No Photophobia , No Scotomata, No Uses contacts, No Uses glasses, No Other HEENT: YES: Heacaches; No: Visual Changes, Hearing change, Nasal congestion, Nasal discharge, Oral lesions, Sinus pain, Sore Throat, Epistaxis, Sneezing, Snoring, Tinnitus, Vertigo, Vocal changes, Other Respiratory: No: Cough, Hemoptysis, Orthopnea, Pleuritic Pain, Shortness of breath, SOB with excertion, Sputum Changes, Stridor, Tachypnea, Wheezing, Other Cardiovascular: No Chest Pain, No Palpitations, No Orthopnea, No Paroxysmal Noc. Dyspnea, No Edema, No Lt Headedness, No Other Gastrointestinal: Yes Nausea, Yes Abdominal Pain, Yes Other (distention); No Vomiting, No Diarrhea, No Constipation, No Melena, No Hematochezia Genitourinary: No Dysuria, No Frequency, No Incontinence, No Hematuria, No Retention, No Discharge, No Urgency, No Pain, No Flank Pain, No Other, No , No , No , No , No , No Musculoskeletal: No Gait Disturbance, No Joint Pain, No Joint Stiffness, No Joint Swelling, No Muscle Pain, No Muscular Weakness, No Pain In:, No Swelling In:, No Other Neurological: No Behavorial Changes, No Bowel/Bladder ControlChng, No Confusion , No Dizziness, No Gait Disturbance, No Headaches, No Impaired Coord/balance, No Memory Loss, No Numbness/Tingling, No Seizures, No Speech Problems, No Tremors, No Visual Changes, No Weakness, No Other Skin: Yes Dry Skin; No Eczema, No Hair Changes, No Lumps, No Mole Changes, No Mottling, No Nail Changes, No Pruritus, No Rash, No Skin Lesion Changes, No Other, No Acne Physical Exam General: Oriented X3, Cooperative, mild distress HEENT: Mucous membr. moist/pink Lungs: Normal air movement Heart: murmurs, jugular vein distention Abdomen: Soft (tender, distended, fluid wave, ) Rectal Exam: not examined Extremities: No clubbing, Other (1+ edema, ) Skin: No breakdown Neuro: Normal speech, Normal tone Psych/Mental Status: Other (some confusion) Vitals Vitals Vital Signs Date Time Temp Pulse Resp B/P (MAP) Pulse Ox O2 Delivery O2 Flow Rate FiO2 09/07/18 08:54 Room Air 09/07/18 07:00 97.6 110 20 114/73 (87) 98 97.6 Labs Labs Laboratory Tests Test 09/06/18 20:10 09/06/18 20:40 09/07/18 10:00 White Blood Count 4.1 x10^3/uL (4.0-11.0) Red Blood Count 3.13 x10^6/uL (4.30-5.70) Hemoglobin 8.9 g/dL (13.0-17.5) Hematocrit 28.5 % (39.0-53.0) Mean Corpuscular Volume 91 fL (79-100) Mean Corpuscular Hemoglobin 29 pg (25-35) Mean Corpuscular Hemoglobin Concent 31 g/dL (31-37) Red Cell Distribution Width 16.5 % (11.5-14.5) Platelet Count 62 x10^3/uL (140-400) Neutrophils (%) (Auto) 57 % (31-73) Lymphocytes (%) (Auto) 32 % (24-48) Monocytes (%) (Auto) 7 % (0-9) Eosinophils (%) (Auto) 4 % (0-3) Basophils (%) (Auto) 0 % (0-3) Neutrophils # (Auto) 2.4 x10^3uL (1.8-7.7) Lymphocytes # (Auto) 1.3 x10^3/uL (1.0-4.8) Monocytes # (Auto) 0.3 x10^3/uL (0.0-1.1) Eosinophils # (Auto) 0.1 x10^3/uL (0.0-0.7) Basophils # (Auto) 0.0 x10^3/uL (0.0-0.2) Platelet Estimate Decreased (ADEQUATE) Lactic Acid Level 3.6 mmol/L (0.4-2.0) Sodium Level 126 mmol/L (136-145) Potassium Level 4.7 mmol/L (3.5-5.1) Chloride Level 96 mmol/L (98-107) Carbon Dioxide Level 16 mmol/L (21-32) Anion Gap 14 (6-14) Blood Urea Nitrogen 47 mg/dL (8-26) Creatinine 1.8 mg/dL (0.7-1.3) Estimated GFR (Cockcroft-Gault) 39.2 BUN/Creatinine Ratio 26 (6-20) Glucose Level 134 mg/dL (70-99) Calcium Level 8.6 mg/dL (8.5-10.1) Total Bilirubin 2.1 mg/dL (0.2-1.0) Aspartate Amino Transf (AST/SGOT) 39 U/L (15-37) Alanine Aminotransferase (ALT/SGPT) 24 U/L (16-63) Alkaline Phosphatase 111 U/L (46-116) Ammonia 56 mcmol/L (11-34) Creatine Kinase 57 U/L (39-308) Creatine Kinase MB (Mass) 3.0 ng/mL (0.0-3.6) Creatine Kinase MB Relative Index % (0-4) Troponin I Quantitative < 0.017 ng/mL (0.000-0.055) Total Protein 6.3 g/dL (6.4-8.2) Albumin 2.2 g/dL (3.4-5.0) Albumin/Globulin Ratio 0.5 (1.0-1.7) Lipase 518 U/L (73-393) Prothrombin Time 17.3 SEC (11.7-14.0) Prothromb Time International Ratio 1.4 (0.8-1.1) Laboratory Tests Test 09/06/18 20:10 09/06/18 20:40 09/07/18 10:00 White Blood Count 4.1 x10^3/uL (4.0-11.0) Red Blood Count 3.13 x10^6/uL (4.30-5.70) Hemoglobin 8.9 g/dL (13.0-17.5) Hematocrit 28.5 % (39.0-53.0) Mean Corpuscular Volume 91 fL (79-100) Mean Corpuscular Hemoglobin 29 pg (25-35) Mean Corpuscular Hemoglobin Concent 31 g/dL (31-37) Red Cell Distribution Width 16.5 % (11.5-14.5) Platelet Count 62 x10^3/uL (140-400) Neutrophils (%) (Auto) 57 % (31-73) Lymphocytes (%) (Auto) 32 % (24-48) Monocytes (%) (Auto) 7 % (0-9) Eosinophils (%) (Auto) 4 % (0-3) Basophils (%) (Auto) 0 % (0-3) Neutrophils # (Auto) 2.4 x10^3uL (1.8-7.7) Lymphocytes # (Auto) 1.3 x10^3/uL (1.0-4.8) Monocytes # (Auto) 0.3 x10^3/uL (0.0-1.1) Eosinophils # (Auto) 0.1 x10^3/uL (0.0-0.7) Basophils # (Auto) 0.0 x10^3/uL (0.0-0.2) Platelet Estimate Decreased (ADEQUATE) Lactic Acid Level 3.6 mmol/L (0.4-2.0) Sodium Level 126 mmol/L (136-145) Potassium Level 4.7 mmol/L (3.5-5.1) Chloride Level 96 mmol/L (98-107) Carbon Dioxide Level 16 mmol/L (21-32) Anion Gap 14 (6-14) Blood Urea Nitrogen 47 mg/dL (8-26) Creatinine 1.8 mg/dL (0.7-1.3) Estimated GFR (Cockcroft-Gault) 39.2 BUN/Creatinine Ratio 26 (6-20) Glucose Level 134 mg/dL (70-99) Calcium Level 8.6 mg/dL (8.5-10.1) Total Bilirubin 2.1 mg/dL (0.2-1.0) Aspartate Amino Transf (AST/SGOT) 39 U/L (15-37) Alanine Aminotransferase (ALT/SGPT) 24 U/L (16-63) Alkaline Phosphatase 111 U/L (46-116) Ammonia 56 mcmol/L (11-34) Creatine Kinase 57 U/L (39-308) Creatine Kinase MB (Mass) 3.0 ng/mL (0.0-3.6) Creatine Kinase MB Relative Index % (0-4) Troponin I Quantitative < 0.017 ng/mL (0.000-0.055) Total Protein 6.3 g/dL (6.4-8.2) Albumin 2.2 g/dL (3.4-5.0) Albumin/Globulin Ratio 0.5 (1.0-1.7) Lipase 518 U/L (73-393) Prothrombin Time 17.3 SEC (11.7-14.0) Prothromb Time International Ratio 1.4 (0.8-1.1) VTE Prophylaxis Ordered VTE Prophylaxis Devices: No VTE Pharmacological Prophylaxi: No Assessment/Plan Assessment/Plan acute on chronic ascites symptomatic ascites ESLD prior EtOH abuse disoder severe malnutrition weakness and debility prior metabolic encephalopathy, TIPS would be too risky discussed with GI, will discuss with IR, consider procedure to limit fluid AAMIR GREER MD Sep 07, 2018 11:45
--- NOTE | 2018-09-07 12:00 | NUR ---
Wound care: Patient seen per wound care consult. See wound assessment. Patient is well known to us from previous admissions. Patient has bilateral skin tears to bilateral upper extremities. Dressings removed and wounds cleansed and assessed. Recommendations for Xeroform gauze and foam dressing to left extremity and then Xeroform gauze, ABD pads, and kerlix to the right extremity. Dressings applied and patient tolerated well. No other wounds noted upon complete head toe assessment. Dressing change instructions left in room. Spoke with RN regarding POC. Will follow patient regarding POC.
[2018-09-07 15:00] VITALS: BP 106/66
--- NOTE | 2018-09-07 16:08 | NUR ---
SW consulted for PCP resource. Chart reviewed and discussed with RN. Pt is well known to SW from multiple hospital visits. SW printed PCP list from Pt's insurance website and provided to pt. SW discussed with pt, he will have to call PCP list to make an appointment. Pt verbalized understanding. Pt stated he has been living with his Samina and plans to return home upon dc. SW will continue to follow pt.
--- NOTE | 2018-09-07 17:45 | NUR ---
Educated patient about the importance of keeping the fluids restricted to 1600mL in 24hrs, pt is constantly ambulating to the refrigerator and getting drinks out of it. Will continue to monitor.
[2018-09-07 19:00] VITALS: BP 93/58
[2018-09-07 23:00] VITALS: BP 101/65
[2018-09-08] VITALS (17 sets, daily range): BP systolic 64–112; BP diastolic 52–76
[2018-09-08] MEDS: MORPHINE SULFATE 4 MG/ML VIAL. IV PRN ×3 (00:33→08:52)
[2018-09-08 07:57] LABS: HEMATOCRIT 23.6 % (39.0-53.0); HEMOGLOBIN 7.5 g/dL (13.0-17.5); RED BLOOD COUNT 2.59 x10^6/uL (4.30-5.70); WHITE BLOOD COUNT 4.7 x10^3/uL (4.0-11.0)
[2018-09-08 08:17] LABS: ALBUMIN 2.3 g/dL (3.4-5.0); ALBUMIN/GLOBULIN RATIO 0.5 (1.0-1.7); CALCIUM 8.7 mg/dL (8.5-10.1); CREATININE 2.7 mg/dL (0.7-1.3); GFR 24.6; POTASSIUM 5.1 mmol/L (3.5-5.1); TOTAL BILIRUBIN 1.9 mg/dL (0.2-1.0); TOTAL PROTEIN 6.7 g/dL (6.4-8.2)
[2018-09-08] MEDS: rifAXIMin 550 MG TABLET PO SCH ×2 (08:51→22:10)
[2018-09-08] MEDS: LACTULOSE 20 GM/30 ML SOLUTION. PO SCH ×2 (08:51→22:10)
--- NOTE | 2018-09-08 12:12 | PDOC ---
PROGRESS NOTES Chief Complaint Chief Complaint acute on chronic ascites symptomatic ascites ESLD prior EtOH abuse disoder severe malnutrition weakness and debility prior metabolic encephalopathy, TIPS would be too risky History of Present Illness History of Present Illness GI to discuss PV shunt possible with IR, paracenteiss today, try to DC daily if he feels well enough I discussed hospice again today, recommended as his best option. still full code Vitals Vitals Vital Signs Date Time Temp Pulse Resp B/P (MAP) Pulse Ox O2 Delivery O2 Flow Rate FiO2 09/08/18 11:21 119 95/60 (72) 100 Room Air 09/08/18 11:06 97.5 18 97.5 Physical Exam General: Oriented X3, Cooperative, No acute distress, mild distress Lungs: Clear Abdomen: Soft (tender, distended, fluid wave, ) Extremities: No clubbing, Other (1+ edema, ) Skin: No breakdown Labs LABS Laboratory Tests Test 09/08/18 07:33 White Blood Count 4.7 x10^3/uL (4.0-11.0) Red Blood Count 2.59 x10^6/uL (4.30-5.70) Hemoglobin 7.5 g/dL (13.0-17.5) Hematocrit 23.6 % (39.0-53.0) Mean Corpuscular Volume 91 fL (79-100) Mean Corpuscular Hemoglobin 29 pg (25-35) Mean Corpuscular Hemoglobin Concent 32 g/dL (31-37) Red Cell Distribution Width 16.0 % (11.5-14.5) Platelet Count 38 x10^3/uL (140-400) Sodium Level 126 mmol/L (136-145) Potassium Level 5.1 mmol/L (3.5-5.1) Chloride Level 96 mmol/L (98-107) Carbon Dioxide Level 19 mmol/L (21-32) Anion Gap 11 (6-14) Blood Urea Nitrogen 55 mg/dL (8-26) Creatinine 2.7 mg/dL (0.7-1.3) Estimated GFR (Cockcroft-Gault) 24.6 BUN/Creatinine Ratio 20 (6-20) Glucose Level 121 mg/dL (70-99) Calcium Level 8.7 mg/dL (8.5-10.1) Total Bilirubin 1.9 mg/dL (0.2-1.0) Aspartate Amino Transf (AST/SGOT) 39 U/L (15-37) Alanine Aminotransferase (ALT/SGPT) 26 U/L (16-63) Alkaline Phosphatase 91 U/L (46-116) Total Protein 6.7 g/dL (6.4-8.2) Albumin 2.3 g/dL (3.4-5.0) Albumin/Globulin Ratio 0.5 (1.0-1.7) Assessment and Plan Assessmemt and Plan Problems Medical Problems: (1) Ascites Status: Acute (2) ETOH abuse Status: Acute Comment Review of Relevant I have reviewed the following items arlette (where applicable) has been applied. Labs Laboratory Tests Test 09/06/18 20:10 09/06/18 20:40 09/07/18 10:00 09/08/18 07:33 White Blood Count 4.1 x10^3/uL (4.0-11.0) 4.7 x10^3/uL (4.0-11.0) Red Blood Count 3.13 x10^6/uL (4.30-5.70) 2.59 x10^6/uL (4.30-5.70) Hemoglobin 8.9 g/dL (13.0-17.5) 7.5 g/dL (13.0-17.5) Hematocrit 28.5 % (39.0-53.0) 23.6 % (39.0-53.0) Mean Corpuscular Volume 91 fL (79-100) 91 fL (79-100) Mean Corpuscular Hemoglobin 29 pg (25-35) 29 pg (25-35) Mean Corpuscular Hemoglobin Concent 31 g/dL (31-37) 32 g/dL (31-37) Red Cell Distribution Width 16.5 % (11.5-14.5) 16.0 % (11.5-14.5) Platelet Count 62 x10^3/uL (140-400) 38 x10^3/uL (140-400) Neutrophils (%) (Auto) 57 % (31-73) Lymphocytes (%) (Auto) 32 % (24-48) Monocytes (%) (Auto) 7 % (0-9) Eosinophils (%) (Auto) 4 % (0-3) Basophils (%) (Auto) 0 % (0-3) Neutrophils # (Auto) 2.4 x10^3uL (1.8-7.7) Lymphocytes # (Auto) 1.3 x10^3/uL (1.0-4.8) Monocytes # (Auto) 0.3 x10^3/uL (0.0-1.1) Eosinophils # (Auto) 0.1 x10^3/uL (0.0-0.7) Basophils # (Auto) 0.0 x10^3/uL (0.0-0.2) Platelet Estimate Decreased (ADEQUATE) Lactic Acid Level 3.6 mmol/L (0.4-2.0) Sodium Level 126 mmol/L (136-145) 126 mmol/L (136-145) Potassium Level 4.7 mmol/L (3.5-5.1) 5.1 mmol/L (3.5-5.1) Chloride Level 96 mmol/L (98-107) 96 mmol/L (98-107) Carbon Dioxide Level 16 mmol/L (21-32) 19 mmol/L (21-32) Anion Gap 14 (6-14) 11 (6-14) Blood Urea Nitrogen 47 mg/dL (8-26) 55 mg/dL (8-26) Creatinine 1.8 mg/dL (0.7-1.3) 2.7 mg/dL (0.7-1.3) Estimated GFR (Cockcroft-Gault) 39.2 24.6 BUN/Creatinine Ratio 26 (6-20) 20 (6-20) Glucose Level 134 mg/dL (70-99) 121 mg/dL (70-99) Calcium Level 8.6 mg/dL (8.5-10.1) 8.7 mg/dL (8.5-10.1) Total Bilirubin 2.1 mg/dL (0.2-1.0) 1.9 mg/dL (0.2-1.0) Aspartate Amino Transf (AST/SGOT) 39 U/L (15-37) 39 U/L (15-37) Alanine Aminotransferase (ALT/SGPT) 24 U/L (16-63) 26 U/L (16-63) Alkaline Phosphatase 111 U/L (46-116) 91 U/L (46-116) Ammonia 56 mcmol/L (11-34) Creatine Kinase 57 U/L (39-308) Creatine Kinase MB (Mass) 3.0 ng/mL (0.0-3.6) Creatine Kinase MB Relative Index % (0-4) Troponin I Quantitative < 0.017 ng/mL (0.000-0.055) Total Protein 6.3 g/dL (6.4-8.2) 6.7 g/dL (6.4-8.2) Albumin 2.2 g/dL (3.4-5.0) 2.3 g/dL (3.4-5.0) Albumin/Globulin Ratio 0.5 (1.0-1.7) 0.5 (1.0-1.7) Lipase 518 U/L (73-393) Prothrombin Time 17.3 SEC (11.7-14.0) Prothromb Time International Ratio 1.4 (0.8-1.1) Laboratory Tests Test 09/08/18 07:33 White Blood Count 4.7 x10^3/uL (4.0-11.0) Red Blood Count 2.59 x10^6/uL (4.30-5.70) Hemoglobin 7.5 g/dL (13.0-17.5) Hematocrit 23.6 % (39.0-53.0) Mean Corpuscular Volume 91 fL (79-100) Mean Corpuscular Hemoglobin 29 pg (25-35) Mean Corpuscular Hemoglobin Concent 32 g/dL (31-37) Red Cell Distribution Width 16.0 % (11.5-14.5) Platelet Count 38 x10^3/uL (140-400) Sodium Level 126 mmol/L (136-145) Potassium Level 5.1 mmol/L (3.5-5.1) Chloride Level 96 mmol/L (98-107) Carbon Dioxide Level 19 mmol/L (21-32) Anion Gap 11 (6-14) Blood Urea Nitrogen 55 mg/dL (8-26) Creatinine 2.7 mg/dL (0.7-1.3) Estimated GFR (Cockcroft-Gault) 24.6 BUN/Creatinine Ratio 20 (6-20) Glucose Level 121 mg/dL (70-99) Calcium Level 8.7 mg/dL (8.5-10.1) Total Bilirubin 1.9 mg/dL (0.2-1.0) Aspartate Amino Transf (AST/SGOT) 39 U/L (15-37) Alanine Aminotransferase (ALT/SGPT) 26 U/L (16-63) Alkaline Phosphatase 91 U/L (46-116) Total Protein 6.7 g/dL (6.4-8.2) Albumin 2.3 g/dL (3.4-5.0) Albumin/Globulin Ratio 0.5 (1.0-1.7) Microbiology 09/06/18 Blood Culture - Preliminary, Resulted NO GROWTH AFTER 1 DAY Medications Current Medications Morphine Sulfate (Morphine Sulfate) 4 mg 1X ONCE IV Last administered on at 20:59; Start 09/06/18 at 20:45; Stop 09/06/18 at 20:51; Status DC Ceftriaxone Sodium (Rocephin) 1 gm 1X ONCE IVP ; Start 09/06/18 at 21:45; Stop 09/06/18 at 21:45; Status DC Ceftriaxone Sodium (Rocephin) 1 gm 1X ONCE IVP ; Start 09/06/18 at 22:15; Stop 09/06/18 at 22:16; Status DC Morphine Sulfate (Morphine Sulfate) 4 mg PRN Q2HR PRN IV PAIN Last administered on 09/08/18at 08:52; Start 09/06/18 at 22:30 Rifaximin (Xifaxan) 550 mg Q12HR PO Last administered on 09/08/18at 08:51; Start 09/07/18 at 10:00 Lactulose (Lactulose) 20 gm BID PO Last administered on 09/08/18at 08:51; Start 09/07/18 at 10:00 Oxycodone HCl (Roxicodone) 5 mg PRN Q6HRS PRN PO PAIN; Start 09/08/18 at 11:00 Active Scripts Active Zyvox (Linezolid) 600 Mg Tablet 600 Mg PO BID 7 Days Lasix (Furosemide) 40 Mg Tablet 1 Tab PO DAILY Xifaxan (Rifaximin) 550 Mg Tablet 550 Mg PO Q12HR Aldactone (Spironolactone) 25 Mg Tablet 50 Mg PO QODAY Tramadol Hcl 50 Mg Tablet 50 Mg PO Q6HRS PRN 7 Days Vitals/I & O Vital Sign - Last 24 Hours 09/07/18 09/07/18 09/07/18 09/07/18 15:00 19:00 20:00 21:32 Temp 97.5 97.4 97.5 97.4 Pulse 113 121 Resp 18 20 18 B/P (MAP) 106/66 (79) 93/58 (70) Pulse Ox 96 99 99 O2 Delivery Room Air Room Air Room Air Room Air 09/07/18 09/08/18 09/08/18 09/08/18 23:00 00:33 03:05 06:12 Temp 97.5 97.5 97.5 97.5 Pulse 119 117 Resp 22 20 B/P (MAP) 101/65 (77) 98/64 (75) Pulse Ox 97 97 100 100 O2 Delivery Room Air Room Air Room Air Room Air 09/08/18 09/08/18 09/08/18 09/08/18 06:42 07:15 08:00 11:06 Temp 97.7 97.5 97.7 97.5 Pulse 118 99 Resp 18 20 18 B/P (MAP) 95/65 (75) 94/63 (73) Pulse Ox 100 100 99 O2 Delivery Room Air Room Air Room Air Room Air 09/08/18 11:21 Pulse 119 B/P (MAP) 95/60 (72) Pulse Ox 100 O2 Delivery Room Air Intake and Output 09/07/18 09/07/18 09/08/18 14:59 22:59 06:59 Intake Total 520 ml 1750 ml 200 ml Balance 520 ml 1750 ml 200 ml AAMIR GREER MD Sep 08, 2018 12:12
--- NOTE | 2018-09-08 12:31 | PDOC ---
Subjective: Subjective: Waiting on paracentesis, feeling uncomfortable. Objective: Vital Signs: Vital Signs Date Time Temp Pulse Resp B/P (MAP) Pulse Ox O2 Delivery O2 Flow Rate FiO2 09/08/18 11:21 119 95/60 (72) 100 Room Air 09/08/18 11:06 97.5 18 97.5 Labs: Laboratory Tests Test 09/08/18 07:33 White Blood Count 4.7 x10^3/uL Red Blood Count 2.59 x10^6/uL Hemoglobin 7.5 g/dL Hematocrit 23.6 % Mean Corpuscular Volume 91 fL Mean Corpuscular Hemoglobin 29 pg Mean Corpuscular Hemoglobin Concent 32 g/dL Red Cell Distribution Width 16.0 % Platelet Count 38 x10^3/uL Sodium Level 126 mmol/L Potassium Level 5.1 mmol/L Chloride Level 96 mmol/L Carbon Dioxide Level 19 mmol/L Anion Gap 11 Blood Urea Nitrogen 55 mg/dL Creatinine 2.7 mg/dL Estimated GFR (Cockcroft-Gault) 24.6 BUN/Creatinine Ratio 20 Glucose Level 121 mg/dL Calcium Level 8.7 mg/dL Total Bilirubin 1.9 mg/dL Aspartate Amino Transf (AST/SGOT) 39 U/L Alanine Aminotransferase (ALT/SGPT) 26 U/L Alkaline Phosphatase 91 U/L Total Protein 6.7 g/dL Albumin 2.3 g/dL Albumin/Globulin Ratio 0.5 PE: GEN: NAD, up to chair LUNGS: CTAB HEART: RRR ABD: distended, tight NEURO/PSYCH: quiet, a bit slow to respond A/P: ESLD w/ ascites - alcohol, still drinks JERROD - worse Depression -- Awaiting paracentesis and IR discussion re: PV shunt. VALERIA ALCOCER Sep 08, 2018 12:31
[2018-09-08] MEDS ORDERED: ALBUMIN HUMAN 25% 100 ML IV ONE ×4 (15:12→16:00)
--- NOTE | 2018-09-08 15:53 | NUR ---
Patient to IR for paracentesis. Removed 9300ml off left abdomen, patient tolerated well with no complaints. New PIV started in right hand, Albumin infused per protocol; vitals stable. Report called to KAYLAH Nelson on .
[2018-09-08] MEDS: oxyCODONE IR 5 MG TABLET PO PRN ×2 (16:06→22:10)
--- NOTE | 2018-09-08 16:26 | RAD ---
Procedure: Ultrasound guided paracentesis Clinical Indication: 58-year-old with recurrent abdominal ascites Sedation: Local anesthesia only Antibiotics: None Fluoro Time: None Contrast: Not applicable Sterility: The procedure was performed in its entirety using appropriate elements of sterile technique. Consent: The procedure was explained in its entirety to the patient or the patients designated direct customer service representative by a member of the treatment team, including a discussion of the risks, benefits and commonly accepted alternatives to the procedure, as well as the expected consequences of no therapy whatsoever. Discussion of the risks included, but was not limited to, those that are most frequent and those that are rare but possibly severe or life-threatening, as well as the possibility of unforeseen complications. Technique and Findings: Following informed consent, the patient was prepped and draped in the usual sterile fashion. Ultrasound interrogation of the abdomen revealed abdominal ascites. A hard copy ultrasound image was recorded. 1% Lidocaine was used to achieve local anesthesia over the area of interest, and a 6 [place] [id number] catheter was advanced into the peritoneal cavity under ultrasound guidance. 9300 cc of thin yellow ascites was then withdrawn. The catheter was removed and hemostasis was achieved with manual compression. Complications: No immediate Impression: 1. Ultrasound-guided paracentesis as described
[2018-09-09 03:51] VITALS: BP 97/64
[2018-09-09] MEDS: oxyCODONE IR 5 MG TABLET PO PRN ×3 (03:56→15:20)
[2018-09-09 07:05] VITALS: BP 105/63
[2018-09-09] MEDS: LACTULOSE 20 GM/30 ML SOLUTION. PO SCH (09:07)
[2018-09-09] MEDS: rifAXIMin 550 MG TABLET PO SCH (09:07)
[2018-09-09 10:59] VITALS: BP 105/64
[2018-09-09] MEDS ORDERED: TRAM50TA PO (11:38)
--- NOTE | 2018-09-09 11:42 | PDOC3 ---
Discharge Summary Visit Information Date of Admission: Sep 06, 2018 Date of Discharge: Sep 09, 2018 Admitting Diagnosis: ascites, weakness Final Diagnosis acute on chronic ascites symptomatic ascites ESLD prior EtOH abuse disoder severe malnutrition weakness and debility prior metabolic encephalopathy, TIPS would be too risky still drinking beer occasionally, had one on day before admit, he says Vitals Problems Medical Problems: (1) Ascites Status: Acute (2) ETOH abuse Status: Acute Brief Hospital Course Allergies Allergies Coded Allergies Type Severity Reaction Last Updated Verified Penicillins Allergy Severe ANPHYLAXIS 05/30/18 Yes trovafloxacin Allergy Severe Anaphylaxis 05/30/18 Yes Influenza Virus Vaccines Allergy Intermediate 06/16/18 Yes Vital Signs Vital Signs Date Time Temp Pulse Resp B/P (MAP) Pulse Ox O2 Delivery O2 Flow Rate FiO2 09/09/18 10:59 97.4 122 17 105/64 (78) 97 Room Air 97.4 Lab Results Laboratory Tests Test 09/08/18 07:33 White Blood Count 4.7 x10^3/uL (4.0-11.0) Red Blood Count 2.59 x10^6/uL (4.30-5.70) Hemoglobin 7.5 g/dL (13.0-17.5) Hematocrit 23.6 % (39.0-53.0) Mean Corpuscular Volume 91 fL (79-100) Mean Corpuscular Hemoglobin 29 pg (25-35) Mean Corpuscular Hemoglobin Concent 32 g/dL (31-37) Red Cell Distribution Width 16.0 % (11.5-14.5) Platelet Count 38 x10^3/uL (140-400) Sodium Level 126 mmol/L (136-145) Potassium Level 5.1 mmol/L (3.5-5.1) Chloride Level 96 mmol/L (98-107) Carbon Dioxide Level 19 mmol/L (21-32) Anion Gap 11 (6-14) Blood Urea Nitrogen 55 mg/dL (8-26) Creatinine 2.7 mg/dL (0.7-1.3) Estimated GFR (Cockcroft-Gault) 24.6 BUN/Creatinine Ratio 20 (6-20) Glucose Level 121 mg/dL (70-99) Calcium Level 8.7 mg/dL (8.5-10.1) Total Bilirubin 1.9 mg/dL (0.2-1.0) Aspartate Amino Transf (AST/SGOT) 39 U/L (15-37) Alanine Aminotransferase (ALT/SGPT) 26 U/L (16-63) Alkaline Phosphatase 91 U/L (46-116) Total Protein 6.7 g/dL (6.4-8.2) Albumin 2.3 g/dL (3.4-5.0) Albumin/Globulin Ratio 0.5 (1.0-1.7) Brief Hospital Course Mr. Thompson is a 58 old male, admit with abd pain, ascites, weakness, ESLD acute renal failure, due to abd pressure GI to discuss PV shunt possible with IR, Dr. Barrett ordered equip, may discuss w. Dr. Jevon bedoya on 09/08, I discussed and offered hospice, he declined, Discharge Information Condition at Discharge: Improved Follow Up: Weeks Disposition/Orders: D/C to Home Scheduled Furosemide (Lasix) 40 Mg Tablet, 1 TAB PO DAILY for ascites, #30 Ref 1 Prescribed by: AAMIR GREER on 08/20/18 0953 Linezolid (Zyvox) 600 Mg Tablet, 600 MG PO BID for UTI for 7 Days, #14 Prescribed by: ALISA ROLDAN MD on 09/01/18 1443 Rifaximin (Xifaxan) 550 Mg Tablet, 550 MG PO Q12HR for liver function, #60 Ref 1 Prescribed by: AAMIR GREER on 08/20/18 0953 Spironolactone (Aldactone) 25 Mg Tablet, 50 MG PO QODAY for ascites, #30 Prescribed by: AAMIR GREER on 08/20/18 0953 Scheduled PRN Tramadol Hcl (Tramadol Hcl) 50 Mg Tablet, 50 MG PO Q6HRS PRN for PAIN for 7 Days , #28 Prescribed by: AAMIR GREER on 09/09/18 1138 Patient Instructions Patient Instructions > 30 min face to face AAMIR GREER MD Sep 09, 2018 11:42
--- NOTE | 2018-09-09 11:45 | NUR ---
Spoke with patient about attentive discharge plans for today, 09/09/18. Pt stated "I think I'll stay till tomorrow, early, around 8." Pt also stated he does not have a ride, right now. This RN explained that the hospital can provide transportation for him. The patient then stated "I don't want to hit you guys up for another taxi ride." This RN then asked if his emergency contact, ex-, Samina, would be able to pick him up today. Pt stated she is working and it would not be till after she gets off work this evening. This RN called Samina, and left a message about the discharge and told her to call back. Will continue to monitor.
--- NOTE | 2018-09-09 13:42 | PDOC ---
Subjective: Subjective: Better after paracentesis. Going home tonight when a ride is available. Objective: Vital Signs: Vital Signs Date Time Temp Pulse Resp B/P (MAP) Pulse Ox O2 Delivery O2 Flow Rate FiO2 09/09/18 10:59 97.4 122 17 105/64 (78) 97 Room Air 97.4 PE: GEN: NAD, walking around room NEURO/PSYCH: A & O 3 A/P: ESLD w/ ascites - 9300cc removed yesterday -- Dr. Louis d/w Dr. Barrett - ?PV shunt - defers to Dr. Hood. DC per primary. VALERIA ALCOCER Sep 09, 2018 13:42
[2018-09-09 15:00] VITALS: BP 115/68
--- NOTE | 2018-09-09 15:00 | NUR ---
Asked patient if he has heard anything about a ride home, patient stated he has not but he did leave a message for Samina, ex-. This RN wanted to confirm that the patient would have a ride home this evening, patient stated "she will come get me, she get's off work between [id number]." Will continue to monitor.
--- NOTE | 2018-09-09 16:40 | NUR ---
Spoke with Samina, ex-. 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 Will continue to monitor.
== END 2018-09-09 19:57 | disposition home or self-care (01) | DRG 432 ==
LOC: ER 18:50 → 6 SOUTH 21:00
PROVIDERS: ADMIT Family Medicine; ATTEND Family Medicine
PROC: 0W9G3ZZ Drainage of Peritoneal Cavity, Percutaneous Approach (ICD-10-PCS; principal; 2018-09-08)
DX: K70.40 Alcoholic hepatic failure without coma (principal); E43 Unspecified severe protein-calorie malnutrition; N17.9 Acute kidney failure, unspecified; E87.1 Hypo-osmolality and hyponatremia; K70.31 Alcoholic cirrhosis of liver with ascites; I10 Essential (primary) hypertension; F10.20 Alcohol dependence, uncomplicated; F32.9 Major depressive disorder, single episode, unspecified; Z96.659 Presence of unspecified artificial knee joint; K21.9 Gastro-esophageal reflux disease without esophagitis; J45.909 Unspecified asthma, uncomplicated; D69.6 Thrombocytopenia, unspecified; Z87.11 Personal history of peptic ulcer disease; Z82.49 Family history of ischemic heart disease and other diseases of the circulatory system; Z91.19 Patient's noncompliance with other medical treatment and regimen; Z88.0 Allergy status to penicillin; Z88.7 Allergy status to serum and vaccine; Z88.8 Allergy status to other drugs, medicaments and biological substances; Z68.25 Body mass index [BMI] 25.0-25.9, adult
CPT/HCPCS: 36415; 49083; 71045; 80053; 82140; 82553; 83605; 83690; 84484; 85025; 85027; 85610; 87040; 93005; 96374; J2270; P9046; 99285-25

== ENCOUNTER 2018-09-15 08:19 | Inpatient (IN) | payer OTHER ==
[~2018-09-15] VITALS: Ht 170.2 cm; Wt 81.8 kg
[2018-09-15] VITALS (15 sets, daily range): BP systolic 82–110; BP diastolic 48–75
[2018-09-15] MEDS ORDERED: ONDANSETRON PF 4 MG/2 ML VIAL. IV ONE (08:45)
[2018-09-15] MEDS ORDERED: MORPHINE SULFATE 10 MG/ML VIAL. IV ONE (08:45)
[2018-09-15 09:20] LABS: CALCIUM 8.6 mg/dL (8.5-10.1); CREATININE 2.3 mg/dL (0.7-1.3); GFR 29.6; POTASSIUM 5.3 mmol/L (3.5-5.1)
[2018-09-15 09:26] LABS: ALBUMIN 2.5 g/dL (3.4-5.0); ALBUMIN/GLOBULIN RATIO 0.6 (1.0-1.7); TOTAL BILIRUBIN 1.1 mg/dL (0.2-1.0); TOTAL PROTEIN 6.7 g/dL (6.4-8.2)
--- NOTE | 2018-09-15 09:28 | PDOC1 ---
History and Physical Date of Admission Date of Admission DATE: 09/15/18 TIME: 09:28 Identification/Chief Complaint Chief Complaint Abdominal swelling Source Source: Patient History of Present Illness History of Present Illness Mr Thompson is a 58 yo M w/ PMHx cirrhosis with ascites multiple admissions who returns to ED with worsening ascites. He states that he has had some nausea with one episode of emesis this morning. He denies diarrhea. He states that his last tap was 2 and half weeks ago (confirmed it was actually 1 week ago). He states that his ex- wanted him to come to the emergency department last night but he wanted to wait until this morning because he felt like she needed to get a full night's sleep. Undergoes paracentesis, most recent 09/08 - 9.3 liters Now with acute renal failure and anemia, this has happened before 08/29 was transfused 1u PRBC for the same. Was treated for enterococcal UTI at the time, sent on 2 weeks of zyvox Past Medical History Cardiovascular: No pertinent hx Pulmonary: No pertinent hx GI: GERD, Peptic Ulcer disease Heme/Onc: Anemia NOS Hepatobiliary: Cirrhosis, Other Musculoskeletal: low back pain Renal/: Acute renal failure Past Surgical History Past Surgical History: Total knee replacement, Other Family History Family History: Hypertension Social History Smoke: <1 pack per day ALCOHOL: other Drugs: None Current Medications Current Medications Current Medications Ondansetron HCl (Zofran) 4 mg 1X ONCE IV Last administered on 09/15/18at 09:09 ; Start 09/15/18 at 08:45; Stop 09/15/18 at 08:46; Status DC Morphine Sulfate (Morphine Sulfate) 5 mg 1X ONCE IV Last administered on at 09:12; Start 09/15/18 at 08:45; Stop 09/15/18 at 08:46; Status DC Active Scripts Active Tramadol Hcl 50 Mg Tablet 50 Mg PO Q6HRS PRN 7 Days Lasix (Furosemide) 40 Mg Tablet 1 Tab PO DAILY Xifaxan (Rifaximin) 550 Mg Tablet 550 Mg PO Q12HR Aldactone (Spironolactone) 25 Mg Tablet 50 Mg PO QODAY Allergies Allergies: Coded Allergies: Penicillins (Verified Allergy, Severe, ANPHYLAXIS, 05/30/18) trovafloxacin (Verified Allergy, Severe, Anaphylaxis, 05/30/18) Anaphylactic Influenza Virus Vaccines (Verified Allergy, Intermediate, 06/16/18) ROS General: YES: Fatigue, Malaise, Appetite; No: Chills, Night Sweats, Other PSYCHOLOGICAL ROS: YES: Anxiety; No: Behavioral Disorder, Concentration difficultie, Decreased libido, Depression, Disorientation, Hallucinations, Hostility, Irritablity, Memory difficulties, Mood Swings, Obsessive thoughts, Physical abuse, Sexual abuse, Sleep disturbances, Suicidal ideation, Other Eyes: No Blurry vision, No Decreased vision, No Double vision, No Dry eyes, No Excessive tearing, No Eye Pain, No Itchy Eyes, No Loss of vision, No Photophobia , No Scotomata, No Uses contacts, No Uses glasses, No Other HEENT: No: Heacaches, Visual Changes, Hearing change, Nasal congestion, Nasal discharge, Oral lesions, Sinus pain, Sore Throat, Epistaxis, Sneezing, Snoring, Tinnitus, Vertigo, Vocal changes, Other ALLERGY AND IMMUNOLOGY: No: Hives, Insect Bite Sensitivity, Itchy/Watery Eyes, Nasal Congestion, Post Nasal Drip, Seasonal Allergies, Other Hematological and Lymphatic: No: Bleeding Problems, Blood Clots, Blood Transfusions, Brusing, Night Sweats, Pallor, Swollen Lymph Nodes, Other ENDOCRINE: No: Breast Changes, Galactorrhea, Hair Pattern Changes, Hot Flashes , Malaise/lethargy, Mood Swings, Palpitations, Polydipsia/polyuria, Skin Changes , Temperature Intolerance, Unexpected Weight Changes, Other Breast: No New/Changing Breast Lumps, No Nipple changes, No Nipple discharge, No Other Respiratory: No: Cough, Hemoptysis, Orthopnea, Pleuritic Pain, Shortness of breath, SOB with excertion, Sputum Changes, Stridor, Tachypnea, Wheezing, Other Cardiovascular: No Chest Pain, No Palpitations, No Orthopnea, No Paroxysmal Noc. Dyspnea, No Edema, No Lt Headedness, No Other Gastrointestinal: No Nausea, No Vomiting, No Abdominal Pain, No Diarrhea, No Constipation, No Melena, No Hematochezia, No Other Genitourinary: No Dysuria, No Frequency, No Incontinence, No Hematuria, No Retention, No Discharge, No Urgency, No Pain, No Flank Pain, No Other, No , No , No , No , No , No , No Musculoskeletal: No Gait Disturbance, No Joint Pain, No Joint Stiffness, No Joint Swelling, No Muscle Pain, No Muscular Weakness, No Pain In:, No Swelling In:, No Other Neurological: No Behavorial Changes, No Bowel/Bladder ControlChng, No Confusion , No Dizziness, No Gait Disturbance, No Headaches, No Impaired Coord/balance, No Memory Loss, No Numbness/Tingling, No Seizures, No Speech Problems, No Tremors, No Visual Changes, No Weakness, No Other Skin: No Dry Skin, No Eczema, No Hair Changes, No Lumps, No Mole Changes, No Mottling, No Nail Changes, No Pruritus, No Rash, No Skin Lesion Changes, No Other, No Acne Physical Exam General: Alert, Oriented X3, Cooperative HEENT: Atraumatic, PERRLA, EOMI, Mucous membr. moist/pink, Other (Brusing on neck) Lungs: Clear to auscultation, Normal air movement Heart: S1S2, RRR Abdomen: Normal bowel sounds, Soft, Other (Positive fluid wave) Rectal Exam: not examined Extremities: No clubbing, No cyanosis, Normal pulses, Other (2+ edema) Skin: Other (Rashes) Neuro: Normal gait, Normal speech, Strength at 5/5 X4 ext, Normal tone, Sensation intact, Cranial nerves 3-12 NL, Reflexes 2+ Psych/Mental Status: Mental status NL, Mood NL Vitals Vitals Vital Signs Date Time Temp Pulse Resp B/P (MAP) Pulse Ox O2 Delivery O2 Flow Rate FiO2 09/15/18 09:26 114 12 85/50 (62) Room Air 99.0 09/15/18 09:12 100 09/15/18 08:35 97.3 97.3 Labs Labs Laboratory Tests Test 09/15/18 09:00 Sodium Level 121 mmol/L (136-145) Potassium Level 5.3 mmol/L (3.5-5.1) Chloride Level 92 mmol/L (98-107) Carbon Dioxide Level 15 mmol/L (21-32) Anion Gap 14 (6-14) Blood Urea Nitrogen 76 mg/dL (8-26) Creatinine 2.3 mg/dL (0.7-1.3) Estimated GFR (Cockcroft-Gault) 29.6 BUN/Creatinine Ratio 33 (6-20) Glucose Level 137 mg/dL (70-99) Calcium Level 8.6 mg/dL (8.5-10.1) Total Bilirubin 1.1 mg/dL (0.2-1.0) Aspartate Amino Transf (AST/SGOT) 45 U/L (15-37) Alanine Aminotransferase (ALT/SGPT) 30 U/L (16-63) Alkaline Phosphatase 155 U/L (46-116) Total Protein 6.7 g/dL (6.4-8.2) Albumin 2.5 g/dL (3.4-5.0) Albumin/Globulin Ratio 0.6 (1.0-1.7) Laboratory Tests Test 09/15/18 09:00 Sodium Level 121 mmol/L (136-145) Potassium Level 5.3 mmol/L (3.5-5.1) Chloride Level 92 mmol/L (98-107) Carbon Dioxide Level 15 mmol/L (21-32) Anion Gap 14 (6-14) Blood Urea Nitrogen 76 mg/dL (8-26) Creatinine 2.3 mg/dL (0.7-1.3) Estimated GFR (Cockcroft-Gault) 29.6 BUN/Creatinine Ratio 33 (6-20) Glucose Level 137 mg/dL (70-99) Calcium Level 8.6 mg/dL (8.5-10.1) Total Bilirubin 1.1 mg/dL (0.2-1.0) Aspartate Amino Transf (AST/SGOT) 45 U/L (15-37) Alanine Aminotransferase (ALT/SGPT) 30 U/L (16-63) Alkaline Phosphatase 155 U/L (46-116) Total Protein 6.7 g/dL (6.4-8.2) Albumin 2.5 g/dL (3.4-5.0) Albumin/Globulin Ratio 0.6 (1.0-1.7) VTE Prophylaxis Ordered VTE Prophylaxis Devices: No VTE Pharmacological Prophylaxi: No Assessment/Plan Assessment/Plan A/P: Ascites - worsening. With platelets < 20, would hold off on paracentesis today. Repeat CBC in AM Acute Anemia - Hb 7, typed and screened by ED, awaiting PRBC transfusion. Concern for likely GI bleed Hyponatremia - from liver failure Acute renal failure NOS, but concern for hepatorenal, or ATN. Seen by nephrology previously. Will monitor Cirrhosis, with repeated ascites, decompensation currently - GI to see Recent EtOH use - will repeat ETOH level Weakness and debility - will have PT/OT to see Thrombocytopenia - likely from liver disease, will monitor. He was on zyvox recently as well for his enterococcal UTI FEN - Renal diet PPX - Thrombocytopenic, SCDs FULL CODE ICU for critically ill decompensated liver failure at least 2 midnights inpatient CHARLES EMERSON MD Sep 15, 2018 09:28
[2018-09-15 09:34] LABS: BASO % 0 % (0-3); EOS # 0.1 x10^3/uL (0.0-0.7); EOS % 3 % (0-3); LYMPH # 1.3 x10^3/uL (1.0-4.8); LYMPH % 38 % (24-48); MEAN CORPUSCULAR HEMOGLOBIN 29 pg (25-35); MEAN CORPUSCULAR HGB CONC 33 g/dL (31-37); MEAN CORPUSCULAR VOLUME 88 fL (79-100); MONO # 0.7 x10^3/uL (0.0-1.1); MONO % 19 % (0-9); NEUT # 1.4 x10^3uL (1.8-7.7); NEUT % 40 % (31-73); RED BLOOD COUNT 2.39 x10^6/uL (4.30-5.70); WHITE BLOOD COUNT 3.6 x10^3/uL (4.0-11.0)
[2018-09-15] MEDS ORDERED: IV NORMAL SALINE 1000ML BAG 1,000 ML IV ONE (09:45)
[2018-09-15 09:46] LABS: PLATELET COUNT 19 x10^3/uL (140-400)
[2018-09-15 09:49] LABS: PROTHROMBIN TIME PATIENT 20.3 SEC (11.7-14.0)
--- NOTE | 2018-09-15 10:31 | PHYS DOC ---
Past Medical History Past Medical History: Liver Disease Additional Past Medical Histor: CELLULITIS,BORDERLINE HTN, ASCITES Past Surgical History: Other Additional Past Surgical Histo: Knee surgery, wrist surgery Alcohol Use: None Drug Use: None Adult General Chief Complaint Chief Complaint: ABDOMINAL PAIN HPI HPI Patient is a 58 year old male who presents with ascites. The patient has hepatorenal failure. He has been trying to obtain services and recently was approved for medicaid. He states that he has been unable to find primary care due to the fact that they had no openings. A few visits ago the patient had expressed a wish to me to receive hospice treatment. He has not pursued this since he obtained insurance. He states that he has had some nausea with one episode of emesis this morning. He denies diarrhea. He states that his last tap was 2 and half weeks ago. He states that his wanted him to come to the emergency department last night but he wanted to wait until this morning because he felt like she needed to get a full night's sleep. Review of Systems Review of Systems Constitutional: Denies fever or chills [] Eyes: Denies change in visual acuity, redness, or eye pain [] HENT: Denies nasal congestion or sore throat [] Respiratory: Denies cough or shortness of breath [] Cardiovascular: No additional information not addressed in HPI [] GI: See history of present illness : Denies dysuria or hematuria [] Musculoskeletal: Denies back pain or joint pain [] Integument: Bruising noted to neck and abdomen Neurologic: Denies headache, focal weakness or sensory changes [] Endocrine: Denies polyuria or polydipsia [] All other systems were reviewed and found to be within normal limits, except as documented in this note. Current Medications Current Medications Allergies Allergies Allergies Coded Allergies Type Severity Reaction Last Updated Verified Penicillins Allergy Severe ANPHYLAXIS 05/30/18 Yes trovafloxacin Allergy Severe Anaphylaxis 05/30/18 Yes Influenza Virus Vaccines Allergy Intermediate 06/16/18 Yes Physical Exam Physical Exam Constitutional: Well developed, well nourished, no acute distress, non-toxic appearance. [] HENT: Normocephalic, atraumatic, bilateral external ears normal, oropharynx moist, no oral exudates, nose normal. [] Eyes: PERRLA, EOMI, mild scleral icterus, no discharge. [] Neck: Normal range of motion, no tenderness, supple, no stridor. [] Cardiovascular:Heart rate regular rhythm, no murmur [] Lungs & Thorax: Bilateral breath sounds clear to auscultation [] Abdomen: Bowel sounds normal, firm and distended, generalized tenderness, no masses Skin: Warm, dry, no erythema, no rash. [] Back: No tenderness, no CVA tenderness. [] Extremities: No tenderness, no cyanosis, no clubbing, ROM intact, no edema. [] Neurologic: Alert and oriented X 3, normal motor function, normal sensory function, no focal deficits noted. [] Psychologic: Affect normal, judgement normal, mood normal. [] Current Patient Data Vital Signs Vital Signs Date Time Temp Pulse Resp B/P (MAP) Pulse Ox O2 Delivery O2 Flow Rate FiO2 09/15/18 08:35 97.3 119 16 112/65 (81) 97 Room Air 97.3 Lab Values EKG EKG [] Radiology/Procedures Radiology/Procedures [] Course & Med Decision Making Course & Med Decision Making Pertinent Labs and Imaging studies reviewed. (See chart for details) []Upon review of the patient's labs we had a discussion about possible transfer to . The patient denies wanting to go to to receive services today. He states that he has been trying to get into their network but is been unable to so far because they are not taking new patients. I explained that by transferring him I could get him into that network of care. He states that today he just wants to be stabilized. I did explain to the patient that his condition is severe enough that he could potentially soon. He still refuses transfer to . He is in agreement to receive blood products today and be tapped. He will be admitted to ICU. He has been admitted to Dr. Jordan service and I spoke with interventional radiology. Dr. Monroe, in the emergency department , also had a conversation with the patient about the severity of his condition. He still declined transfer. The patient does demonstrate medical decision- making capacity and seems of sound mind. He states that he will consider going to but he wants to have a conversation with his before then. The patient changed his mind and I did speak with 's transfer team. They declined acceptance of the patient. They did give me outpatient clinic information for him to follow up. The patient is to call Dr. Sophia Cardona at [phone] for outpatient workup. The patient is receiving a unit of blood and has received Zofran and fentanyl for symptom control. Dragon Disclaimer Dragon Disclaimer This electronic medical record was generated, in whole or in part, using a voice recognition dictation system. Departure Departure Impression: Primary Impression: Ascites Disposition: ADMITTED INPATIENT Admitting Physician: Other Condition: GUARDED Referrals: NO PCP (PCP) CHERELLE MARTELL APRN Sep 15, 2018 10:31
[2018-09-15] MEDS ORDERED: fentaNYL PF VIAL 100 MCG/2 ML VIAL IV ONE (12:45)
[2018-09-15] MEDS ORDERED: ONDANSETRON PF 4 MG/2 ML VIAL. IV PRN ×2 (13:00→16:15)
[2018-09-15] MEDS ORDERED: SODIUM POLYSTYRENE SULFONATE 15 GM/60 ML ORAL.SUSP. PO ONE (13:00)
[2018-09-15 15:29] LABS: HEMATOCRIT 24.6 % (39.0-53.0); HEMOGLOBIN 8.2 g/dL (13.0-17.5)
[2018-09-15] MEDS: fentaNYL PF VIAL 100 MCG/2 ML VIAL IV PRN ×2 (16:08→20:07)
[2018-09-15] MEDS ORDERED: LACTULOSE 20 GM/30 ML SOLUTION. PO PRN (16:15)
[2018-09-15] MEDS ORDERED: ACETAMINOPHEN 325 MG TABLET. PO PRN (16:15)
[2018-09-15] MEDS: rifAXIMin 550 MG TABLET PO SCH (21:02)
[2018-09-15] MEDS: traMADol 50 MG TABLET PO PRN (21:24)
[2018-09-16] VITALS (27 sets, daily range): BP systolic 78–100; BP diastolic 49–78
[2018-09-16] MEDS: fentaNYL PF VIAL 100 MCG/2 ML VIAL IV PRN ×3 (00:17→08:38)
[2018-09-16] MEDS: traMADol 50 MG TABLET PO PRN ×2 (05:17→14:51)
[2018-09-16 05:45] LABS: BASO % 1 % (0-3); EOS # 0.2 x10^3/uL (0.0-0.7); EOS % 5 % (0-3); HEMATOCRIT 22.9 % (39.0-53.0); HEMOGLOBIN 7.6 g/dL (13.0-17.5); LYMPH # 1.5 x10^3/uL (1.0-4.8); LYMPH % 43 % (24-48); MEAN CORPUSCULAR HEMOGLOBIN 29 pg (25-35); MEAN CORPUSCULAR HGB CONC 33 g/dL (31-37); MEAN CORPUSCULAR VOLUME 87 fL (79-100); MONO # 0.6 x10^3/uL (0.0-1.1); MONO % 18 % (0-9); NEUT # 1.1 x10^3uL (1.8-7.7); NEUT % 33 % (31-73); RED BLOOD COUNT 2.65 x10^6/uL (4.30-5.70); RED CELL DISTRIBUTION WIDTH 15.9 % (11.5-14.5); WHITE BLOOD COUNT 3.4 x10^3/uL (4.0-11.0)
[2018-09-16 05:51] LABS: PLATELET COUNT 22 x10^3/uL (140-400)
[2018-09-16 05:53] LABS: CALCIUM 8.2 mg/dL (8.5-10.1); CREATININE 2.3 mg/dL (0.7-1.3); GFR 29.6; POTASSIUM 5.2 mmol/L (3.5-5.1)
[2018-09-16 05:55] LABS: ALBUMIN 2.2 g/dL (3.4-5.0); DIRECT BILIRUBIN 0.9 mg/dL (0.0-0.2); TOTAL BILIRUBIN 2.9 mg/dL (0.2-1.0); TOTAL PROTEIN 5.8 g/dL (6.4-8.2)
[2018-09-16 06:12] LABS: PROTHROMBIN TIME PATIENT 19.5 SEC (11.7-14.0)
[2018-09-16] MEDS: rifAXIMin 550 MG TABLET PO SCH ×2 (08:37→21:26)
[2018-09-16] MEDS ORDERED: PHYTONADIONE 10 MG/ML AMPUL. SQ ONE (09:00)
--- NOTE | 2018-09-16 10:14 | PDOC ---
PROGRESS NOTES Chief Complaint Chief Complaint History of Present Illness Mr Thompson is a 58 yo M w/ PMHx cirrhosis with ascites multiple admissions who returns to ED with worsening ascites. He states that he has had some nausea with one episode of emesis this morning. He denies diarrhea. He states that his last tap was 1 week ago). He states that his ex- wanted him to come to the emergency department last night but he wanted to wait until this morning because he felt like she needed to get a full night's sleep. NEEDS paracentesis , most recent 09/08 - 9.3 liters Now with acute renal failure and anemia, 08/29 was transfused 1u PRBC for the same. Was treated for enterococcal UTI at the time, sent on HOME ON 2 weeks of zyvox History of Present Illness History of Present Illness Assessment/Plan Assessment/Plan A/P: Ascites - worsening. With platelets < 20, would hold off on paracentesis 09/15. Repeat CBC in AM Acute Anemia - Hb 7, typed and screened by ED, awaiting PRBC transfusion. Concern for likely GI bleed Hyponatremia - from liver failure Acute renal failure NOS, but concern for hepatorenal, or ATN. Seen by nephrology previously. Will monitor Cirrhosis, with repeated ascites, decompensation currently - GI FOLLOWING Recent EtOH use - ETOH level< 10 Weakness and debility - // PT/OT Thrombocytopenia - // from liver disease, will monitor. He was on zyvox recently as well for his enterococcal UTI FEN - Renal diet PPX - Thrombocytopenic, SCDs FULL CODE ICU REMAINS critically ill decompensated liver failure at least 2 midnights inpatient 42 MIN CC TIME Vitals Vitals Vital Signs Date Time Temp Pulse Resp B/P (MAP) Pulse Ox O2 Delivery O2 Flow Rate FiO2 09/16/18 09:00 114 8 95/69 (78) 99 Room Air 09/16/18 09:00 97.7 97.7 09/16/18 08:38 99.0 Physical Exam General: Alert, Oriented X3, Cooperative, mild distress Heart: Regular rate Lungs: Clear Abdomen: Normal bowel sounds, Soft, Other ( DISTENDED) Extremities: No clubbing, No cyanosis, Normal pulses, Other (2+ edema) Skin: Other (MULTIPLE BRUISES) Labs LABS Laboratory Tests Test 09/15/18 15:20 3/22/19 04:00 Hemoglobin 8.2 g/dL (13.0-17.5) 7.6 g/dL (13.0-17.5) Hematocrit 24.6 % (39.0-53.0) 22.9 % (39.0-53.0) Mean Corpuscular Hemoglobin Concent 33 g/dL (31-37) 33 g/dL (31-37) Ethyl Alcohol Level < 10 mg/dL (0-10) White Blood Count 3.4 x10^3/uL (4.0-11.0) Red Blood Count 2.65 x10^6/uL (4.30-5.70) Mean Corpuscular Volume 87 fL (79-100) Mean Corpuscular Hemoglobin 29 pg (25-35) Red Cell Distribution Width 15.9 % (11.5-14.5) Platelet Count 22 x10^3/uL (140-400) Neutrophils (%) (Auto) 33 % (31-73) Lymphocytes (%) (Auto) 43 % (24-48) Monocytes (%) (Auto) 18 % (0-9) Eosinophils (%) (Auto) 5 % (0-3) Basophils (%) (Auto) 1 % (0-3) Neutrophils # (Auto) 1.1 x10^3uL (1.8-7.7) Lymphocytes # (Auto) 1.5 x10^3/uL (1.0-4.8) Monocytes # (Auto) 0.6 x10^3/uL (0.0-1.1) Eosinophils # (Auto) 0.2 x10^3/uL (0.0-0.7) Basophils # (Auto) 0.0 x10^3/uL (0.0-0.2) Prothrombin Time 19.5 SEC (11.7-14.0) Prothromb Time International Ratio 1.7 (0.8-1.1) Sodium Level 125 mmol/L (136-145) Potassium Level 5.2 mmol/L (3.5-5.1) Chloride Level 96 mmol/L (98-107) Carbon Dioxide Level 19 mmol/L (21-32) Anion Gap 10 (6-14) Blood Urea Nitrogen 72 mg/dL (8-26) Creatinine 2.3 mg/dL (0.7-1.3) Estimated GFR (Cockcroft-Gault) 29.6 Glucose Level 114 mg/dL (70-99) Calcium Level 8.2 mg/dL (8.5-10.1) Total Bilirubin 2.9 mg/dL (0.2-1.0) Direct Bilirubin 0.9 mg/dL (0.0-0.2) Aspartate Amino Transf (AST/SGOT) 38 U/L (15-37) Alanine Aminotransferase (ALT/SGPT) 31 U/L (16-63) Alkaline Phosphatase 96 U/L (46-116) Total Protein 5.8 g/dL (6.4-8.2) Albumin 2.2 g/dL (3.4-5.0) Assessment and Plan Assessmemt and Plan Problems Medical Problems: (1) Anemia Status: Acute (2) Ascites Status: Acute (3) Hyperkalemia Status: Acute (4) Renal failure Status: Acute Comment Review of Relevant I have reviewed the following items arlette (where applicable) has been applied. Labs Laboratory Tests Test 09/15/18 09:00 09/15/18 09:20 09/15/18 15:20 09/16/18 04:00 Sodium Level 121 mmol/L (136-145) 125 mmol/L (136-145) Potassium Level 5.3 mmol/L (3.5-5.1) 5.2 mmol/L (3.5-5.1) Chloride Level 92 mmol/L (98-107) 96 mmol/L (98-107) Carbon Dioxide Level 15 mmol/L (21-32) 19 mmol/L (21-32) Anion Gap 14 (6-14) 10 (6-14) Blood Urea Nitrogen 76 mg/dL (8-26) 72 mg/dL (8-26) Creatinine 2.3 mg/dL (0.7-1.3) 2.3 mg/dL (0.7-1.3) Estimated GFR (Cockcroft-Gault) 29.6 29.6 BUN/Creatinine Ratio 33 (6-20) Glucose Level 137 mg/dL (70-99) 114 mg/dL (70-99) Calcium Level 8.6 mg/dL (8.5-10.1) 8.2 mg/dL (8.5-10.1) Total Bilirubin 1.1 mg/dL (0.2-1.0) 2.9 mg/dL (0.2-1.0) Aspartate Amino Transf (AST/SGOT) 45 U/L (15-37) 38 U/L (15-37) Alanine Aminotransferase (ALT/SGPT) 30 U/L (16-63) 31 U/L (16-63) Alkaline Phosphatase 155 U/L (46-116) 96 U/L (46-116) Total Protein 6.7 g/dL (6.4-8.2) 5.8 g/dL (6.4-8.2) Albumin 2.5 g/dL (3.4-5.0) 2.2 g/dL (3.4-5.0) Albumin/Globulin Ratio 0.6 (1.0-1.7) White Blood Count 3.6 x10^3/uL (4.0-11.0) 3.4 x10^3/uL (4.0-11.0) Red Blood Count 2.39 x10^6/uL (4.30-5.70) 2.65 x10^6/uL (4.30-5.70) Hemoglobin 7.0 g/dL (13.0-17.5) 8.2 g/dL (13.0-17.5) 7.6 g/dL (13.0-17.5) Hematocrit 21.0 % (39.0-53.0) 24.6 % (39.0-53.0) 22.9 % (39.0-53.0) Mean Corpuscular Volume 88 fL (79-100) 87 fL (79-100) Mean Corpuscular Hemoglobin 29 pg (25-35) 29 pg (25-35) Mean Corpuscular Hemoglobin Concent 33 g/dL (31-37) 33 g/dL (31-37) 33 g/dL (31-37) Red Cell Distribution Width 16.0 % (11.5-14.5) 15.9 % (11.5-14.5) Platelet Count 19 x10^3/uL (140-400) 22 x10^3/uL (140-400) Neutrophils (%) (Auto) 40 % (31-73) 33 % (31-73) Lymphocytes (%) (Auto) 38 % (24-48) 43 % (24-48) Monocytes (%) (Auto) 19 % (0-9) 18 % (0-9) Eosinophils (%) (Auto) 3 % (0-3) 5 % (0-3) Basophils (%) (Auto) 0 % (0-3) 1 % (0-3) Neutrophils # (Auto) 1.4 x10^3uL (1.8-7.7) 1.1 x10^3uL (1.8-7.7) Lymphocytes # (Auto) 1.3 x10^3/uL (1.0-4.8) 1.5 x10^3/uL (1.0-4.8) Monocytes # (Auto) 0.7 x10^3/uL (0.0-1.1) 0.6 x10^3/uL (0.0-1.1) Eosinophils # (Auto) 0.1 x10^3/uL (0.0-0.7) 0.2 x10^3/uL (0.0-0.7) Basophils # (Auto) 0.0 x10^3/uL (0.0-0.2) 0.0 x10^3/uL (0.0-0.2) Prothrombin Time 20.3 SEC (11.7-14.0) 19.5 SEC (11.7-14.0) Prothromb Time International Ratio 1.8 (0.8-1.1) 1.7 (0.8-1.1) Activated Partial Thromboplast Time 35 SEC (24-38) Ethyl Alcohol Level < 10 mg/dL (0-10) Direct Bilirubin 0.9 mg/dL (0.0-0.2) Laboratory Tests Test 09/15/18 15:20 09/16/18 04:00 Hemoglobin 8.2 g/dL (13.0-17.5) 7.6 g/dL (13.0-17.5) Hematocrit 24.6 % (39.0-53.0) 22.9 % (39.0-53.0) Mean Corpuscular Hemoglobin Concent 33 g/dL (31-37) 33 g/dL (31-37) Ethyl Alcohol Level < 10 mg/dL (0-10) White Blood Count 3.4 x10^3/uL (4.0-11.0) Red Blood Count 2.65 x10^6/uL (4.30-5.70) Mean Corpuscular Volume 87 fL (79-100) Mean Corpuscular Hemoglobin 29 pg (25-35) Red Cell Distribution Width 15.9 % (11.5-14.5) Platelet Count 22 x10^3/uL (140-400) Neutrophils (%) (Auto) 33 % (31-73) Lymphocytes (%) (Auto) 43 % (24-48) Monocytes (%) (Auto) 18 % (0-9) Eosinophils (%) (Auto) 5 % (0-3) Basophils (%) (Auto) 1 % (0-3) Neutrophils # (Auto) 1.1 x10^3uL (1.8-7.7) Lymphocytes # (Auto) 1.5 x10^3/uL (1.0-4.8) Monocytes # (Auto) 0.6 x10^3/uL (0.0-1.1) Eosinophils # (Auto) 0.2 x10^3/uL (0.0-0.7) Basophils # (Auto) 0.0 x10^3/uL (0.0-0.2) Prothrombin Time 19.5 SEC (11.7-14.0) Prothromb Time International Ratio 1.7 (0.8-1.1) Sodium Level 125 mmol/L (136-145) Potassium Level 5.2 mmol/L (3.5-5.1) Chloride Level 96 mmol/L (98-107) Carbon Dioxide Level 19 mmol/L (21-32) Anion Gap 10 (6-14) Blood Urea Nitrogen 72 mg/dL (8-26) Creatinine 2.3 mg/dL (0.7-1.3) Estimated GFR (Cockcroft-Gault) 29.6 Glucose Level 114 mg/dL (70-99) Calcium Level 8.2 mg/dL (8.5-10.1) Total Bilirubin 2.9 mg/dL (0.2-1.0) Direct Bilirubin 0.9 mg/dL (0.0-0.2) Aspartate Amino Transf (AST/SGOT) 38 U/L (15-37) Alanine Aminotransferase (ALT/SGPT) 31 U/L (16-63) Alkaline Phosphatase 96 U/L (46-116) Total Protein 5.8 g/dL (6.4-8.2) Albumin 2.2 g/dL (3.4-5.0) Medications Current Medications Ondansetron HCl (Zofran) 4 mg 1X ONCE IV Last administered on 09/15/18at 09:09 ; Start 09/15/18 at 08:45; Stop 09/15/18 at 08:46; Status DC Morphine Sulfate (Morphine Sulfate) 5 mg 1X ONCE IV Last administered on at 09:12; Start 09/15/18 at 08:45; Stop 09/15/18 at 08:46; Status DC Sodium Chloride 1,000 ml @ 1,000 mls/hr 1X ONCE IV Last administered on at 09:45; Start 09/15/18 at 09:45; Stop 09/15/18 at 10:44; Status DC Fentanyl Citrate (Fentanyl 2ml Vial) 50 mcg 1X ONCE IV Last administered on at 12:49; Start 09/15/18 at 12:45; Stop 09/15/18 at 12:46; Status DC Ondansetron HCl (Zofran) 4 mg PRN Q8HRS PRN IV NAUSEA/VOMITING; Start 09/15/18 at 13:00; Stop 09/16/18 at 07:37; Status DC Fentanyl Citrate (Fentanyl 2ml Vial) 50 mcg PRN Q1HR PRN IV PAIN Last administered on 09/16/18at 08:38; Start 09/15/18 at 13:00; Stop 09/16/18 at 12:59 Sodium Polystyrene Sulfonate (Kayexalate) 15 gm 1X ONCE PO ; Start 09/15/18 at 13:00; Stop 09/15/18 at 13:01; Status DC Rifaximin (Xifaxan) 550 mg Q12HR PO Last administered on 09/16/18at 08:37; Start 09/15/18 at 21:00 Tramadol HCl (Ultram) 50 mg PRN Q6HRS PRN PO PAIN Last administered on at 05:17; Start 09/15/18 at 16:15 Ondansetron HCl (Zofran) 4 mg PRN Q6HRS PRN IV NAUSEA/VOMITING; Start 09/15/18 at 16:15 Acetaminophen (Tylenol) 650 mg PRN Q6HRS PRN PO Headaches, Temp > 101.5F; Start 09/15/18 at 16:15 Lactulose (Lactulose) 20 gm PRN Q12HR PRN PO CONSTIPATION; Start 09/15/18 at 16 :15 Phytonadione (Vitamin K Ampule) 10 mg 1X ONCE SQ Last administered on at 08:37; Start 09/16/18 at 09:00; Stop 09/16/18 at 09:01; Status DC Active Scripts Active Tramadol Hcl 50 Mg Tablet 50 Mg PO Q6HRS PRN 7 Days Lasix (Furosemide) 40 Mg Tablet 1 Tab PO DAILY Xifaxan (Rifaximin) 550 Mg Tablet 550 Mg PO Q12HR Aldactone (Spironolactone) 25 Mg Tablet 50 Mg PO QODAY Vitals/I & O Vital Sign - Last 24 Hours 09/15/18 09/15/18 09/15/18 09/15/18 10:51 11:13 12:02 12:16 Temp 97.8 97.8 97.8 97.8 Pulse 113 115 110 112 Resp 12 12 10 12 B/P (MAP) 91/50 (64) 101/56 (71) 94/53 91/61 Pulse Ox 99 97 O2 Delivery Room Air Room Air 09/15/18 09/15/18 09/15/18 09/15/18 12:49 12:51 13:10 13:10 Temp 97.6 97.8 97.6 97.8 Pulse 107 109 Resp 12 7 B/P (MAP) 94/54 109/75 (86) Pulse Ox 98 95 O2 Delivery Room Air Room Air Room Air 09/15/18 09/15/18 09/15/18 09/15/18 13:51 14:00 14:45 15:00 Temp 97.8 97.8 Pulse 107 107 107 116 Resp 9 9 15 10 B/P (MAP) 110/75 110/75 (87) 105/68 110/68 (82) Pulse Ox 100 100 O2 Delivery Room Air Room Air 09/15/18 09/15/18 09/15/18 09/15/18 16:08 16:12 16:13 16:38 Pulse 112 Resp 8 7 B/P (MAP) 89/73 (78) Pulse Ox 100 98 O2 Delivery Room Air Room Air Room Air O2 Flow Rate 99.0 99.0 09/15/18 09/15/18 09/15/18 09/15/18 17:08 19:00 20:00 20:00 Temp 98.1 98.1 Pulse 107 115 112 Resp 8 16 10 B/P (MAP) 93/62 (72) 85/66 (72) 82/59 (67) Pulse Ox 99 99 99 O2 Delivery Room Air Room Air Room Air Room Air 09/15/18 09/15/18 09/15/18 09/15/18 20:07 21:00 21:24 22:00 Pulse 113 111 Resp 12 12 10 10 B/P (MAP) 82/58 (66) 88/48 (61) Pulse Ox 99 99 100 99 O2 Delivery Room Air Room Air Room Air Room Air 09/15/18 09/15/18 09/16/18 09/16/18 23:00 23:58 00:00 00:17 Temp 98.0 98.0 Pulse 112 112 Resp 12 14 10 B/P (MAP) 91/55 (67) 84/53 (63) Pulse Ox 98 99 100 O2 Delivery Room Air Room Air Room Air Room Air 09/16/18 09/16/18 09/16/18 09/16/18 01:00 02:00 02:39 03:00 Pulse 113 111 110 Resp 10 12 14 10 B/P (MAP) 86/54 (65) 87/56 (66) 90/61 (71) Pulse Ox 98 99 98 99 O2 Delivery Room Air Room Air Room Air Room Air 09/16/18 09/16/18 09/16/18 09/16/18 03:15 04:00 04:00 05:00 Temp 97.9 97.9 Pulse 109 119 Resp 12 8 12 B/P (MAP) 84/52 (63) 89/61 (70) Pulse Ox 98 99 99 O2 Delivery Room Air Room Air Room Air Room Air 09/16/18 09/16/18 09/16/18 09/16/18 05:17 06:00 06:20 07:00 Temp 97.9 97.9 Pulse 110 111 Resp 10 12 12 9 B/P (MAP) 99/67 (78) 90/61 (71) Pulse Ox 99 99 99 98 O2 Delivery Room Air Room Air Room Air Room Air 09/16/18 09/16/18 09/16/18 09/16/18 07:56 08:00 08:38 08:44 Temp 97.9 97.9 Pulse 113 113 Resp 8 12 8 B/P (MAP) 85/58 (67) 85/58 Pulse Ox 99 99 O2 Delivery Room Air Room Air Room Air O2 Flow Rate 99.0 09/16/18 09/16/18 09:00 09:00 Temp 97.7 97.7 Pulse 114 114 Resp 8 8 B/P (MAP) 95/69 95/69 (78) Pulse Ox 99 O2 Delivery Room Air Intake and Output 09/15/18 09/15/18 09/16/18 15:00 23:00 07:00 Intake Total 805 ml 240 ml 180 ml Output Total 250 ml 100 ml 225 ml Balance 555 ml 140 ml -45 ml MARQUISE CLOUD MD Sep 16, 2018 10:14
--- NOTE | 2018-09-16 12:29 | PDOC ---
Subjective: Subjective: Please see past GI consults and progress notes - most recently from admission . Back to ER last night to abd distention. Tells me he takes water pills at home but doesn't have lactulose and is out of Xifaxan. Not too talkative this morning. Objective: Objective: Received platelets and pRBCs, also vit K and Kayexalate. Vital Signs: Vital Signs Date Time Temp Pulse Resp B/P (MAP) Pulse Ox O2 Delivery O2 Flow Rate FiO2 09/16/18 10:25 97.8 117 10 95/78 97.8 09/16/18 10:00 100 Room Air 09/16/18 08:38 99.0 Labs: Laboratory Tests Test 09/15/18 15:20 09/16/18 04:00 09/16/18 10:40 Hemoglobin 8.2 g/dL 7.6 g/dL Hematocrit 24.6 % 22.9 % Mean Corpuscular Hemoglobin Concent 33 g/dL 33 g/dL Ethyl Alcohol Level < 10 mg/dL White Blood Count 3.4 x10^3/uL Red Blood Count 2.65 x10^6/uL Mean Corpuscular Volume 87 fL Mean Corpuscular Hemoglobin 29 pg Red Cell Distribution Width 15.9 % Platelet Count 22 x10^3/uL 52 x10^3/uL Neutrophils (%) (Auto) 33 % Lymphocytes (%) (Auto) 43 % Monocytes (%) (Auto) 18 % Eosinophils (%) (Auto) 5 % Basophils (%) (Auto) 1 % Neutrophils # (Auto) 1.1 x10^3uL Lymphocytes # (Auto) 1.5 x10^3/uL Monocytes # (Auto) 0.6 x10^3/uL Eosinophils # (Auto) 0.2 x10^3/uL Basophils # (Auto) 0.0 x10^3/uL Prothrombin Time 19.5 SEC Prothromb Time International Ratio 1.7 Sodium Level 125 mmol/L Potassium Level 5.2 mmol/L Chloride Level 96 mmol/L Carbon Dioxide Level 19 mmol/L Anion Gap 10 Blood Urea Nitrogen 72 mg/dL Creatinine 2.3 mg/dL Estimated GFR (Cockcroft-Gault) 29.6 Glucose Level 114 mg/dL Calcium Level 8.2 mg/dL Total Bilirubin 2.9 mg/dL Direct Bilirubin 0.9 mg/dL Aspartate Amino Transf (AST/SGOT) 38 U/L Alanine Aminotransferase (ALT/SGPT) 31 U/L Alkaline Phosphatase 96 U/L Total Protein 5.8 g/dL Albumin 2.2 g/dL PE: GEN: NAD LUNGS: room air HEART: tachycardic ABD: distended, tight EXTREM: R>L LE edema NEURO/PSYCH: A & O 3, flat A/P: Alcoholic cirrhosis (?still drinking), recurrent ascites, h/o hepatic encephalopathy Pancytopenia, coagulopathy CKD, hyponatremia Hypotension -- Possible paracentesis pending recheck of plt. Discussion in past re: PV shunt w/ IR (Dr. Hood). VALERIA ALCOCER Sep 16, 2018 12:29
--- NOTE | 2018-09-16 12:57 | NUR ---
SS following for discharge planning. SS reviewed pt chart. Pt is from home and is currently on room air. No discharge needs noted at this time. SS will continue to follow for pending discharge needs.
[2018-09-16] MEDS ORDERED: ALBUMIN HUMAN 25% 100 ML IV ONE ×4 (13:15→14:30)
[2018-09-16] MEDS: PANTOPRAZOLE 40 MG TABLET.DR. PO SCH (16:00)
[2018-09-16] MEDS ORDERED: IV NORMAL SALINE 500ML BAG 500 ML IV ONE (16:15)
[2018-09-16] MEDS: MORPHINE SULFATE 4 MG/ML VIAL. IV PRN (22:12)
--- NOTE | 2018-09-16 22:12 | CONS ---
DATE OF CONSULTATION: REASON FOR CONSULTATION: Renal failure. HISTORY OF PRESENT ILLNESS: This is a 58-year-old gentleman with a history of cirrhosis of the liver with associated ascites. He is currently admitted with worsening ascites. He approximately 1 week prior to this admission had a paracentesis. Due to increased level of azotemia, Nephrology evaluation requested. He has been seen by our service in the past. PAST MEDICAL HISTORY: Cirrhosis of the liver with ascites, anemia, acute on chronic kidney disease, peptic ulcer disease, GE reflux disease, enterococcal urinary tract infection. ALLERGIES: INFLUENZA VACCINE, PENICILLIN, TROVAFLOXACIN. MEDICATIONS: Reviewed per med list. FAMILY HISTORY: Noncontributory. SOCIAL HISTORY: The patient resides with assistance. REVIEW OF SYSTEMS: No headache, sinus problem, nasal drainage, epistaxis, change in vision or hearing, no difficulty swallowing. No fever, chills, cough, sputum production or hemoptysis. No chest pain, shortness of breath, PND, orthopnea, dyspnea on exertion. No abdominal pain. He has abdominal fullness. No nausea or vomiting. Has had some diarrhea. No seizures or malignancies. PHYSICAL EXAMINATION: GENERAL APPEARANCE: The patient is awake, conversant. HEENT: Bitemporal wasting. Eyes are sunken. NECK: No increased JVD. No thyromegaly, masses or adenopathy. LUNGS: Clear. CARDIAC: Without S3 or rub. ABDOMEN: Distended with ascites. EXTREMITIES: Without edema. NEUROLOGIC: Nonfocal, nonlocalized. PSYCHIATRIC: Reduced attention to detail, appropriate affect. LABORATORY DATA: Lab on admission, sodium 121. Lab at this time, sodium 125, potassium 5.2, chloride 96, CO2 19, BUN 72, creatinine 2.3, GFR 29.6, calcium 8.2. Total bili 2.9, total protein 5.8, albumin 2.2, hemoglobin 7.6, hematocrit 22.9. White count 3.4, platelets are 22. INR 1.7, PTT is 35, ethylene glycol level is less than 10. IMPRESSION: 1. Cirrhosis of liver with ascites. 2. Renal failure -- acute versus chronic. 3. The patient is not anuric, would not implicate hepatorenal syndrome. Likely has acute tubular necrosis. PLAN: The patient is receiving packed red blood cells and platelets. We will have paracentesis likely to follow. We will follow renal function with you. Serum sodium is improving. Would continue fluid restriction. SUSAN FREEMAN MD DR: GERMAIN/german JOB#: [id number] / [id number]
[2018-09-17] VITALS (11 sets, daily range): BP systolic 86–103; BP diastolic 54–65
[2018-09-17 04:43] LABS: BASO % 1 % (0-3); EOS # 0.2 x10^3/uL (0.0-0.7); EOS % 6 % (0-3); LYMPH # 1.4 x10^3/uL (1.0-4.8); LYMPH % 47 % (24-48); MEAN CORPUSCULAR HEMOGLOBIN 29 pg (25-35); MEAN CORPUSCULAR HGB CONC 34 g/dL (31-37); MEAN CORPUSCULAR VOLUME 86 fL (79-100); MONO # 0.5 x10^3/uL (0.0-1.1); MONO % 16 % (0-9); NEUT # 0.9 x10^3uL (1.8-7.7); NEUT % 31 % (31-73); PLATELET COUNT 50 x10^3/uL (140-400); RED BLOOD COUNT 2.35 x10^6/uL (4.30-5.70); RED CELL DISTRIBUTION WIDTH 15.9 % (11.5-14.5); WHITE BLOOD COUNT 2.9 x10^3/uL (4.0-11.0)
[2018-09-17 04:51] LABS: HEMATOCRIT 20.2 % (39.0-53.0); HEMOGLOBIN 6.8 g/dL (13.0-17.5)
[2018-09-17 05:18] LABS: ALBUMIN 2.3 g/dL (3.4-5.0); ALBUMIN/GLOBULIN RATIO 0.8 (1.0-1.7); CALCIUM 8.3 mg/dL (8.5-10.1); CREATININE 1.9 mg/dL (0.7-1.3); GFR 36.9; POTASSIUM 4.9 mmol/L (3.5-5.1); TOTAL BILIRUBIN 1.4 mg/dL (0.2-1.0); TOTAL PROTEIN 5.3 g/dL (6.4-8.2)
[2018-09-17 06:55] LABS: PROTHROMBIN TIME PATIENT 21.5 SEC (11.7-14.0)
[2018-09-17 06:56] LABS: ALBUMIN 3.1 g/dL (3.4-5.0); DIRECT BILIRUBIN 0.3 mg/dL (0.0-0.2); TOTAL BILIRUBIN 0.9 mg/dL (0.2-1.0); TOTAL PROTEIN 6.7 g/dL (6.4-8.2)
[2018-09-17] MEDS: rifAXIMin 550 MG TABLET PO SCH ×2 (09:07→20:05)
[2018-09-17] MEDS: PANTOPRAZOLE 40 MG TABLET.DR. PO SCH (09:07)
[2018-09-17] MEDS: MORPHINE SULFATE 4 MG/ML VIAL. IV PRN ×3 (09:08→20:05)
--- NOTE | 2018-09-17 10:23 | PDOC ---
PROGRESS NOTES Chief Complaint Chief Complaint Advanced liver cirrhosis Advanced kidney disease in the background of #1 Anemia of chronic disease Thrombocytopenia Leukopenia Hyponatremia Moderate to severe PCM Generalized weakness Chronic leg swelling and ascites Alcohol drinking, hx History of Present Illness History of Present Illness Paracenteses 8 L 09/16/18 status post albumin Getting blood transfusion currently- hemoglobin 6.8 This is the second time he needed blood transfusion Platelets 50 also got platelets-platelets were in the teens on admission Leukopenia with WBC 2.9 but no fevers Creatinine 1.9-seems to be stable Sodium 126 He is trying to eat Plan: finish blood transfusion and recheck H&H Aldactone and Lasix were held but I think he might need that-creatinine is 1.9 stable DC any IVF REsume diuretics NO PT needs He has a that we'll make decision for him when the time comes Overall prognosis poor, frequency of admissions, chronic comorbidities-hospice candidate but not ready Vitals Vitals Vital Signs Date Time Temp Pulse Resp B/P (MAP) Pulse Ox O2 Delivery O2 Flow Rate FiO2 09/17/18 09:41 Room Air 09/17/18 09:20 98.3 112 16 101/61 98.3 09/17/18 08:16 99.0 09/17/18 07:00 95 Physical Exam General: Alert, Oriented X3, Cooperative, mild distress Heart: Regular rate Lungs: Clear Abdomen: Normal bowel sounds, Soft, Other ( DISTENDED) Extremities: No clubbing, No cyanosis, Normal pulses, Other (2+ edema) Skin: Other (MULTIPLE BRUISES) Labs LABS Laboratory Tests Test 09/16/18 10:40 09/17/18 04:10 Platelet Count 52 x10^3/uL (140-400) 50 x10^3/uL (140-400) White Blood Count 2.9 x10^3/uL (4.0-11.0) Red Blood Count 2.35 x10^6/uL (4.30-5.70) Hemoglobin 6.8 g/dL (13.0-17.5) Hematocrit 20.2 % (39.0-53.0) Mean Corpuscular Volume 86 fL (79-100) Mean Corpuscular Hemoglobin 29 pg (25-35) Mean Corpuscular Hemoglobin Concent 34 g/dL (31-37) Red Cell Distribution Width 15.9 % (11.5-14.5) Neutrophils (%) (Auto) 31 % (31-73) Lymphocytes (%) (Auto) 47 % (24-48) Monocytes (%) (Auto) 16 % (0-9) Eosinophils (%) (Auto) 6 % (0-3) Basophils (%) (Auto) 1 % (0-3) Neutrophils # (Auto) 0.9 x10^3uL (1.8-7.7) Lymphocytes # (Auto) 1.4 x10^3/uL (1.0-4.8) Monocytes # (Auto) 0.5 x10^3/uL (0.0-1.1) Eosinophils # (Auto) 0.2 x10^3/uL (0.0-0.7) Basophils # (Auto) 0.0 x10^3/uL (0.0-0.2) Prothrombin Time 21.5 SEC (11.7-14.0) Prothromb Time International Ratio 1.9 (0.8-1.1) Sodium Level 126 mmol/L (136-145) Potassium Level 4.9 mmol/L (3.5-5.1) Chloride Level 97 mmol/L (98-107) Carbon Dioxide Level 21 mmol/L (21-32) Anion Gap 8 (6-14) Blood Urea Nitrogen 61 mg/dL (8-26) Creatinine 1.9 mg/dL (0.7-1.3) Estimated GFR (Cockcroft-Gault) 36.9 BUN/Creatinine Ratio 32 (6-20) Glucose Level 100 mg/dL (70-99) Calcium Level 8.3 mg/dL (8.5-10.1) Total Bilirubin 1.4 mg/dL (0.2-1.0) Direct Bilirubin 0.3 mg/dL (0.0-0.2) Aspartate Amino Transf (AST/SGOT) 30 U/L (15-37) Alanine Aminotransferase (ALT/SGPT) 22 U/L (16-63) Alkaline Phosphatase 75 U/L (46-116) Total Protein 5.3 g/dL (6.4-8.2) Albumin 2.3 g/dL (3.4-5.0) Albumin/Globulin Ratio 0.8 (1.0-1.7) Review of Systems Review of Systems Weak, easy bruisability, the rest of ROS negative Assessment and Plan Assessmemt and Plan Problems Medical Problems: (1) Anemia Status: Acute (2) Ascites Status: Acute (3) Hyperkalemia Status: Acute (4) Renal failure Status: Acute Comment Review of Relevant I have reviewed the following items arlette (where applicable) has been applied. Labs Laboratory Tests Test 09/15/18 15:20 09/16/18 04:00 09/16/18 10:40 09/17/18 04:10 Hemoglobin 8.2 g/dL (13.0-17.5) 7.6 g/dL (13.0-17.5) 6.8 g/dL (13.0-17.5) Hematocrit 24.6 % (39.0-53.0) 22.9 % (39.0-53.0) 20.2 % (39.0-53.0) Mean Corpuscular Hemoglobin Concent 33 g/dL (31-37) 33 g/dL (31-37) 34 g/dL (31-37) Ethyl Alcohol Level < 10 mg/dL (0-10) White Blood Count 3.4 x10^3/uL (4.0-11.0) 2.9 x10^3/uL (4.0-11.0) Red Blood Count 2.65 x10^6/uL (4.30-5.70) 2.35 x10^6/uL (4.30-5.70) Mean Corpuscular Volume 87 fL (79-100) 86 fL (79-100) Mean Corpuscular Hemoglobin 29 pg (25-35) 29 pg (25-35) Red Cell Distribution Width 15.9 % (11.5-14.5) 15.9 % (11.5-14.5) Platelet Count 22 x10^3/uL (140-400) 52 x10^3/uL (140-400) 50 x10^3/uL (140-400) Neutrophils (%) (Auto) 33 % (31-73) 31 % (31-73) Lymphocytes (%) (Auto) 43 % (24-48) 47 % (24-48) Monocytes (%) (Auto) 18 % (0-9) 16 % (0-9) Eosinophils (%) (Auto) 5 % (0-3) 6 % (0-3) Basophils (%) (Auto) 1 % (0-3) 1 % (0-3) Neutrophils # (Auto) 1.1 x10^3uL (1.8-7.7) 0.9 x10^3uL (1.8-7.7) Lymphocytes # (Auto) 1.5 x10^3/uL (1.0-4.8) 1.4 x10^3/uL (1.0-4.8) Monocytes # (Auto) 0.6 x10^3/uL (0.0-1.1) 0.5 x10^3/uL (0.0-1.1) Eosinophils # (Auto) 0.2 x10^3/uL (0.0-0.7) 0.2 x10^3/uL (0.0-0.7) Basophils # (Auto) 0.0 x10^3/uL (0.0-0.2) 0.0 x10^3/uL (0.0-0.2) Prothrombin Time 19.5 SEC (11.7-14.0) 21.5 SEC (11.7-14.0) Prothromb Time International Ratio 1.7 (0.8-1.1) 1.9 (0.8-1.1) Sodium Level 125 mmol/L (136-145) 126 mmol/L (136-145) Potassium Level 5.2 mmol/L (3.5-5.1) 4.9 mmol/L (3.5-5.1) Chloride Level 96 mmol/L (98-107) 97 mmol/L (98-107) Carbon Dioxide Level 19 mmol/L (21-32) 21 mmol/L (21-32) Anion Gap 10 (6-14) 8 (6-14) Blood Urea Nitrogen 72 mg/dL (8-26) 61 mg/dL (8-26) Creatinine 2.3 mg/dL (0.7-1.3) 1.9 mg/dL (0.7-1.3) Estimated GFR (Cockcroft-Gault) 29.6 36.9 Glucose Level 114 mg/dL (70-99) 100 mg/dL (70-99) Calcium Level 8.2 mg/dL (8.5-10.1) 8.3 mg/dL (8.5-10.1) Total Bilirubin 2.9 mg/dL (0.2-1.0) 1.4 mg/dL (0.2-1.0) Direct Bilirubin 0.9 mg/dL (0.0-0.2) 0.3 mg/dL (0.0-0.2) Aspartate Amino Transf (AST/SGOT) 38 U/L (15-37) 30 U/L (15-37) Alanine Aminotransferase (ALT/SGPT) 31 U/L (16-63) 22 U/L (16-63) Alkaline Phosphatase 96 U/L (46-116) 75 U/L (46-116) Total Protein 5.8 g/dL (6.4-8.2) 5.3 g/dL (6.4-8.2) Albumin 2.2 g/dL (3.4-5.0) 2.3 g/dL (3.4-5.0) BUN/Creatinine Ratio 32 (6-20) Albumin/Globulin Ratio 0.8 (1.0-1.7) Laboratory Tests Test 09/16/18 10:40 09/17/18 04:10 Platelet Count 52 x10^3/uL (140-400) 50 x10^3/uL (140-400) White Blood Count 2.9 x10^3/uL (4.0-11.0) Red Blood Count 2.35 x10^6/uL (4.30-5.70) Hemoglobin 6.8 g/dL (13.0-17.5) Hematocrit 20.2 % (39.0-53.0) Mean Corpuscular Volume 86 fL (79-100) Mean Corpuscular Hemoglobin 29 pg (25-35) Mean Corpuscular Hemoglobin Concent 34 g/dL (31-37) Red Cell Distribution Width 15.9 % (11.5-14.5) Neutrophils (%) (Auto) 31 % (31-73) Lymphocytes (%) (Auto) 47 % (24-48) Monocytes (%) (Auto) 16 % (0-9) Eosinophils (%) (Auto) 6 % (0-3) Basophils (%) (Auto) 1 % (0-3) Neutrophils # (Auto) 0.9 x10^3uL (1.8-7.7) Lymphocytes # (Auto) 1.4 x10^3/uL (1.0-4.8) Monocytes # (Auto) 0.5 x10^3/uL (0.0-1.1) Eosinophils # (Auto) 0.2 x10^3/uL (0.0-0.7) Basophils # (Auto) 0.0 x10^3/uL (0.0-0.2) Prothrombin Time 21.5 SEC (11.7-14.0) Prothromb Time International Ratio 1.9 (0.8-1.1) Sodium Level 126 mmol/L (136-145) Potassium Level 4.9 mmol/L (3.5-5.1) Chloride Level 97 mmol/L (98-107) Carbon Dioxide Level 21 mmol/L (21-32) Anion Gap 8 (6-14) Blood Urea Nitrogen 61 mg/dL (8-26) Creatinine 1.9 mg/dL (0.7-1.3) Estimated GFR (Cockcroft-Gault) 36.9 BUN/Creatinine Ratio 32 (6-20) Glucose Level 100 mg/dL (70-99) Calcium Level 8.3 mg/dL (8.5-10.1) Total Bilirubin 1.4 mg/dL (0.2-1.0) Direct Bilirubin 0.3 mg/dL (0.0-0.2) Aspartate Amino Transf (AST/SGOT) 30 U/L (15-37) Alanine Aminotransferase (ALT/SGPT) 22 U/L (16-63) Alkaline Phosphatase 75 U/L (46-116) Total Protein 5.3 g/dL (6.4-8.2) Albumin 2.3 g/dL (3.4-5.0) Albumin/Globulin Ratio 0.8 (1.0-1.7) Medications Current Medications Ondansetron HCl (Zofran) 4 mg 1X ONCE IV Last administered on 09/15/18at 09:09 ; Start 09/15/18 at 08:45; Stop 09/15/18 at 08:46; Status DC Morphine Sulfate (Morphine Sulfate) 5 mg 1X ONCE IV Last administered on at 09:12; Start 09/15/18 at 08:45; Stop 09/15/18 at 08:46; Status DC Sodium Chloride 1,000 ml @ 1,000 mls/hr 1X ONCE IV Last administered on at 09:45; Start 09/15/18 at 09:45; Stop 09/15/18 at 10:44; Status DC Fentanyl Citrate (Fentanyl 2ml Vial) 50 mcg 1X ONCE IV Last administered on at 12:49; Start 09/15/18 at 12:45; Stop 09/15/18 at 12:46; Status DC Ondansetron HCl (Zofran) 4 mg PRN Q8HRS PRN IV NAUSEA/VOMITING; Start 09/15/18 at 13:00; Stop 09/16/18 at 07:37; Status DC Fentanyl Citrate (Fentanyl 2ml Vial) 50 mcg PRN Q1HR PRN IV PAIN Last administered on 09/16/18at 08:38; Start 09/15/18 at 13:00; Stop 09/16/18 at 12:59 ; Status DC Sodium Polystyrene Sulfonate (Kayexalate) 15 gm 1X ONCE PO ; Start 09/15/18 at 13:00; Stop 09/15/18 at 13:01; Status DC Rifaximin (Xifaxan) 550 mg Q12HR PO Last administered on 09/17/18at 09:07; Start 09/15/18 at 21:00 Tramadol HCl (Ultram) 50 mg PRN Q6HRS PRN PO PAIN Last administered on at 14:51; Start 09/15/18 at 16:15 Ondansetron HCl (Zofran) 4 mg PRN Q6HRS PRN IV NAUSEA/VOMITING; Start 09/15/18 at 16:15 Acetaminophen (Tylenol) 650 mg PRN Q6HRS PRN PO Headaches, Temp > 101.5F; Start 09/15/18 at 16:15 Lactulose (Lactulose) 20 gm PRN Q12HR PRN PO CONSTIPATION; Start 09/15/18 at 16 :15 Phytonadione (Vitamin K Ampule) 10 mg 1X ONCE SQ Last administered on at 08:37; Start 09/16/18 at 09:00; Stop 09/16/18 at 09:01; Status DC Albumin Human 100 ml @ As Directed STK-MED ONCE IV ; Start 09/16/18 at 13:15; Stop 09/16/18 at 13:16; Status DC Albumin Human 100 ml @ 100 mls/hr 1X ONCE IV Last administered on 09/16/18at 13:50; Start 09/16/18 at 13:30; Stop 09/16/18 at 14:29; Status DC Albumin Human 100 ml @ As Directed STK-MED ONCE IV ; Start 09/16/18 at 13:36; Stop 09/16/18 at 13:37; Status DC Albumin Human 100 ml @ 100 mls/hr 1X ONCE IV Last administered on 09/16/18at 13:50; Start 09/16/18 at 14:30; Stop 09/16/18 at 15:29; Status DC Pantoprazole Sodium (Protonix) 40 mg DAILYAC PO Last administered on 09/17/18 09:07; Start 09/16/18 at 16:00 Sodium Chloride 500 ml @ 500 mls/hr 1X ONCE IV Last administered on at 16:15; Start 09/16/18 at 16:15; Stop 09/16/18 at 17:14; Status DC Morphine Sulfate (Morphine Sulfate) 2 mg PRN Q2HR PRN IV PAIN Last administered on 09/17/18at 09:08; Start 09/16/18 at 21:45 Active Scripts Active Tramadol Hcl 50 Mg Tablet 50 Mg PO Q6HRS PRN 7 Days Lasix (Furosemide) 40 Mg Tablet 1 Tab PO DAILY Xifaxan (Rifaximin) 550 Mg Tablet 550 Mg PO Q12HR Aldactone (Spironolactone) 25 Mg Tablet 50 Mg PO QODAY Vitals/I & O Vital Sign - Last 24 Hours 09/16/18 09/16/18 09/16/18 09/16/18 10:25 11:00 12:00 12:00 Temp 97.8 97.6 97.8 97.6 Pulse 117 116 113 Resp 10 15 9 B/P (MAP) 95/78 81/59 (66) 91/55 (67) Pulse Ox 100 100 O2 Delivery Room Air Room Air Room Air 09/16/18 09/16/18 09/16/18 09/16/18 13:04 13:20 13:35 13:50 Pulse 116 112 106 107 Resp 10 11 12 12 B/P (MAP) 96/72 (80) 100/69 (79) 94/65 (75) 90/61 (71) Pulse Ox 100 100 99 100 O2 Delivery Room Air Room Air Room Air Room Air 09/16/18 09/16/18 09/16/18 09/16/18 14:51 15:02 15:51 16:00 Pulse 110 Resp 14 B/P (MAP) 80/49 (59) Pulse Ox 100 100 100 O2 Delivery Room Air Room Air Room Air Room Air O2 Flow Rate 99.0 99.0 09/16/18 09/16/18 09/16/18 09/16/18 16:00 16:49 17:58 19:00 Temp 97.6 97.8 97.8 97.6 97.8 97.8 Pulse 109 107 101 Resp 9 16 17 B/P (MAP) 78/51 (60) 87/56 (66) 89/56 (67) 96/57 (70) Pulse Ox 95 98 99 O2 Delivery Room Air Room Air Room Air 09/16/18 09/16/18 09/16/18 09/16/18 20:00 22:12 22:42 23:00 Temp 98.2 98.2 Pulse 110 Resp 16 B/P (MAP) 99/65 (76) Pulse Ox 99 98 98 O2 Delivery Room Air Room Air Room Air O2 Flow Rate 99.0 99.0 99.0 09/17/18 09/17/18 09/17/18 09/17/18 02:44 07:00 08:10 08:16 Temp 98.6 98.6 98.3 98.6 98.6 98.3 Pulse 114 107 107 Resp 15 18 14 B/P (MAP) 96/54 (68) 92/54 (67) 103/61 Pulse Ox 97 95 O2 Delivery Room Air Room Air Room Air O2 Flow Rate 99.0 09/17/18 09/17/18 09/17/18 09/17/18 08:25 09:08 09:20 09:41 Temp 98.2 98.3 98.2 98.3 Pulse 106 112 Resp 14 16 B/P (MAP) 92/57 101/61 O2 Delivery Room Air Room Air Intake and Output 09/16/18 09/16/18 09/17/18 15:00 23:00 07:00 Intake Total 1065 ml 1000 ml 440 ml Output Total 8700 ml 0 ml Balance -7635 ml 1000 ml 440 ml Nutrition Consultation Dietary Evaluation: Recommendations by RD: Increase Calorie Intake Comments: Recommend continue low Na diet, honor food preferences, and provide snacks as requested Expected Outcomes/Goals: P.O. intake to meet >75% estimated nutrition needs Interpretation of weight loss: >5% in 1 month Malnutrition Findings: Body Fat Depletion (Non Severe: Mild Depletion Weight Status: Overweight ALEIDA VAUGHAN MD Sep 17, 2018 10:23
[2018-09-17] MEDS: FUROSEMIDE 40 MG TABLET. PO SCH (10:46)
[2018-09-18] MEDS: MORPHINE SULFATE 4 MG/ML VIAL. IV PRN ×4 (00:24→22:31)
[2018-09-18 03:11] VITALS: BP 98/63
[2018-09-18 04:48] LABS: BASO % 1 % (0-3); EOS # 0.1 x10^3/uL (0.0-0.7); EOS % 4 % (0-3); HEMATOCRIT 24.3 % (39.0-53.0); HEMOGLOBIN 8.1 g/dL (13.0-17.5); LYMPH # 1.3 x10^3/uL (1.0-4.8); LYMPH % 33 % (24-48); MEAN CORPUSCULAR HEMOGLOBIN 29 pg (25-35); MEAN CORPUSCULAR HGB CONC 33 g/dL (31-37); MEAN CORPUSCULAR VOLUME 87 fL (79-100); MONO # 0.6 x10^3/uL (0.0-1.1); MONO % 17 % (0-9); NEUT # 1.8 x10^3uL (1.8-7.7); NEUT % 46 % (31-73); PLATELET COUNT 64 x10^3/uL (140-400); RED BLOOD COUNT 2.81 x10^6/uL (4.30-5.70); RED CELL DISTRIBUTION WIDTH 15.9 % (11.5-14.5); WHITE BLOOD COUNT 3.9 x10^3/uL (4.0-11.0)
[2018-09-18 05:33] LABS: ALBUMIN 2.5 g/dL (3.4-5.0); CALCIUM 8.5 mg/dL (8.5-10.1); CREATININE 2.2 mg/dL (0.7-1.3); DIRECT BILIRUBIN 0.9 mg/dL (0.0-0.2); GFR 31.1; POTASSIUM 4.9 mmol/L (3.5-5.1); TOTAL BILIRUBIN 2.2 mg/dL (0.2-1.0); TOTAL PROTEIN 5.7 g/dL (6.4-8.2)
[2018-09-18 07:00] VITALS: BP 99/61
[2018-09-18] MEDS: rifAXIMin 550 MG TABLET PO SCH ×2 (08:46→21:57)
[2018-09-18] MEDS: PANTOPRAZOLE 40 MG TABLET.DR. PO SCH (08:46)
[2018-09-18] MEDS: FUROSEMIDE 40 MG TABLET. PO SCH (08:47)
[2018-09-18] MEDS ORDERED: SPIRONOLACTONE 25 MG TABLET PO SCH (09:00)
[2018-09-18] MEDS ORDERED: Pantoprazole PO (09:01)
[2018-09-18] MEDS ORDERED: LACT20SO PO (09:01)
[2018-09-18] MEDS ORDERED: RIFA550T4 PO (09:01)
--- NOTE | 2018-09-18 09:28 | NUR ---
This nurse scanned and opened pt. spironolactone and furosemide. This nurse looked at pt. VS and decided to hold the medication and recheck BP again. This nurse went back to re-check VS and saw these two medications had been discontinued. This nurse went to undo the administration through the eMAR and wasted the medications.
--- NOTE | 2018-09-18 10:30 | PDOC ---
PROGRESS NOTES Chief Complaint Chief Complaint Advanced liver cirrhosis Advanced kidney disease in the background of #1 Anemia of chronic disease Thrombocytopenia Leukopenia Hyponatremia Moderate to severe PCM Generalized weakness Chronic leg swelling and ascites Alcohol drinking, hx History of Present Illness History of Present Illness Paracenteses 8 L 09/16/18 status post albumin hemoGlobin 8.1 after blood transfusion for hemoglobin 6.8 over the weekend Creatinine up to 2 again from 1 point something There was an element of prerenal azotemia upon admission But he does get fluid overloaded easy I did discuss with him that he could stay here and we will just monitor the BMP or he could go home with full knowledge to restart Aldactone or Lasix if he gets swollen again. He takes Lasix every day and Aldactone every other day I did also wrote for repeat BMP in 5 days time He said he will think about going home today or not Renal and GI all on board Platelets 50 also got platelets-platelets were in the teens on admission - no bleeding but has old bruises NO PT needs He has a that we'll make decision for him when the time comes Overall prognosis poor, frequency of admissions, chronic comorbidities-hospice candidate but not ready dw KAYLAH Javier Vitals Vitals Vital Signs Date Time Temp Pulse Resp B/P (MAP) Pulse Ox O2 Delivery O2 Flow Rate FiO2 09/18/18 10:10 Room Air 09/18/18 07:00 98.5 112 18 99/61 (74) 97 98.5 09/18/18 00:54 99.0 Physical Exam General: Alert, Oriented X3, Cooperative, mild distress Heart: Regular rate Lungs: Clear Abdomen: Normal bowel sounds, Soft, Other ( DISTENDED) Extremities: No clubbing, No cyanosis, Normal pulses, Other (2+ edema) Skin: Other (MULTIPLE BRUISES) Labs LABS Laboratory Tests Test 09/18/18 03:45 White Blood Count 3.9 x10^3/uL (4.0-11.0) Red Blood Count 2.81 x10^6/uL (4.30-5.70) Hemoglobin 8.1 g/dL (13.0-17.5) Hematocrit 24.3 % (39.0-53.0) Mean Corpuscular Volume 87 fL (79-100) Mean Corpuscular Hemoglobin 29 pg (25-35) Mean Corpuscular Hemoglobin Concent 33 g/dL (31-37) Red Cell Distribution Width 15.9 % (11.5-14.5) Platelet Count 64 x10^3/uL (140-400) Neutrophils (%) (Auto) 46 % (31-73) Lymphocytes (%) (Auto) 33 % (24-48) Monocytes (%) (Auto) 17 % (0-9) Eosinophils (%) (Auto) 4 % (0-3) Basophils (%) (Auto) 1 % (0-3) Neutrophils # (Auto) 1.8 x10^3uL (1.8-7.7) Lymphocytes # (Auto) 1.3 x10^3/uL (1.0-4.8) Monocytes # (Auto) 0.6 x10^3/uL (0.0-1.1) Eosinophils # (Auto) 0.1 x10^3/uL (0.0-0.7) Basophils # (Auto) 0.0 x10^3/uL (0.0-0.2) Prothrombin Time 21.0 SEC (11.7-14.0) Prothromb Time International Ratio 1.8 (0.8-1.1) Sodium Level 128 mmol/L (136-145) Potassium Level 4.9 mmol/L (3.5-5.1) Chloride Level 98 mmol/L (98-107) Carbon Dioxide Level 20 mmol/L (21-32) Anion Gap 10 (6-14) Blood Urea Nitrogen 57 mg/dL (8-26) Creatinine 2.2 mg/dL (0.7-1.3) Estimated GFR (Cockcroft-Gault) 31.1 Glucose Level 119 mg/dL (70-99) Calcium Level 8.5 mg/dL (8.5-10.1) Total Bilirubin 2.2 mg/dL (0.2-1.0) Direct Bilirubin 0.9 mg/dL (0.0-0.2) Aspartate Amino Transf (AST/SGOT) 31 U/L (15-37) Alanine Aminotransferase (ALT/SGPT) 27 U/L (16-63) Alkaline Phosphatase 98 U/L (46-116) Total Protein 5.7 g/dL (6.4-8.2) Albumin 2.5 g/dL (3.4-5.0) Review of Systems Review of Systems weak, the rest of ROS 14 point negative Assessment and Plan Assessmemt and Plan Problems Medical Problems: (1) Anemia Status: Acute (2) Ascites Status: Acute (3) Hyperkalemia Status: Acute (4) Renal failure Status: Acute Comment Review of Relevant I have reviewed the following items arlette (where applicable) has been applied. Labs Laboratory Tests Test 09/16/18 10:40 09/17/18 04:10 09/18/18 03:45 Platelet Count 52 x10^3/uL (140-400) 50 x10^3/uL (140-400) 64 x10^3/uL (140-400) White Blood Count 2.9 x10^3/uL (4.0-11.0) 3.9 x10^3/uL (4.0-11.0) Red Blood Count 2.35 x10^6/uL (4.30-5.70) 2.81 x10^6/uL (4.30-5.70) Hemoglobin 6.8 g/dL (13.0-17.5) 8.1 g/dL (13.0-17.5) Hematocrit 20.2 % (39.0-53.0) 24.3 % (39.0-53.0) Mean Corpuscular Volume 86 fL (79-100) 87 fL (79-100) Mean Corpuscular Hemoglobin 29 pg (25-35) 29 pg (25-35) Mean Corpuscular Hemoglobin Concent 34 g/dL (31-37) 33 g/dL (31-37) Red Cell Distribution Width 15.9 % (11.5-14.5) 15.9 % (11.5-14.5) Neutrophils (%) (Auto) 31 % (31-73) 46 % (31-73) Lymphocytes (%) (Auto) 47 % (24-48) 33 % (24-48) Monocytes (%) (Auto) 16 % (0-9) 17 % (0-9) Eosinophils (%) (Auto) 6 % (0-3) 4 % (0-3) Basophils (%) (Auto) 1 % (0-3) 1 % (0-3) Neutrophils # (Auto) 0.9 x10^3uL (1.8-7.7) 1.8 x10^3uL (1.8-7.7) Lymphocytes # (Auto) 1.4 x10^3/uL (1.0-4.8) 1.3 x10^3/uL (1.0-4.8) Monocytes # (Auto) 0.5 x10^3/uL (0.0-1.1) 0.6 x10^3/uL (0.0-1.1) Eosinophils # (Auto) 0.2 x10^3/uL (0.0-0.7) 0.1 x10^3/uL (0.0-0.7) Basophils # (Auto) 0.0 x10^3/uL (0.0-0.2) 0.0 x10^3/uL (0.0-0.2) Prothrombin Time 21.5 SEC (11.7-14.0) 21.0 SEC (11.7-14.0) Prothromb Time International Ratio 1.9 (0.8-1.1) 1.8 (0.8-1.1) Sodium Level 126 mmol/L (136-145) 128 mmol/L (136-145) Potassium Level 4.9 mmol/L (3.5-5.1) 4.9 mmol/L (3.5-5.1) Chloride Level 97 mmol/L (98-107) 98 mmol/L (98-107) Carbon Dioxide Level 21 mmol/L (21-32) 20 mmol/L (21-32) Anion Gap 8 (6-14) 10 (6-14) Blood Urea Nitrogen 61 mg/dL (8-26) 57 mg/dL (8-26) Creatinine 1.9 mg/dL (0.7-1.3) 2.2 mg/dL (0.7-1.3) Estimated GFR (Cockcroft-Gault) 36.9 31.1 BUN/Creatinine Ratio 32 (6-20) Glucose Level 100 mg/dL (70-99) 119 mg/dL (70-99) Calcium Level 8.3 mg/dL (8.5-10.1) 8.5 mg/dL (8.5-10.1) Total Bilirubin 1.4 mg/dL (0.2-1.0) 2.2 mg/dL (0.2-1.0) Direct Bilirubin 0.3 mg/dL (0.0-0.2) 0.9 mg/dL (0.0-0.2) Aspartate Amino Transf (AST/SGOT) 30 U/L (15-37) 31 U/L (15-37) Alanine Aminotransferase (ALT/SGPT) 22 U/L (16-63) 27 U/L (16-63) Alkaline Phosphatase 75 U/L (46-116) 98 U/L (46-116) Total Protein 5.3 g/dL (6.4-8.2) 5.7 g/dL (6.4-8.2) Albumin 2.3 g/dL (3.4-5.0) 2.5 g/dL (3.4-5.0) Albumin/Globulin Ratio 0.8 (1.0-1.7) Laboratory Tests Test 09/18/18 03:45 White Blood Count 3.9 x10^3/uL (4.0-11.0) Red Blood Count 2.81 x10^6/uL (4.30-5.70) Hemoglobin 8.1 g/dL (13.0-17.5) Hematocrit 24.3 % (39.0-53.0) Mean Corpuscular Volume 87 fL (79-100) Mean Corpuscular Hemoglobin 29 pg (25-35) Mean Corpuscular Hemoglobin Concent 33 g/dL (31-37) Red Cell Distribution Width 15.9 % (11.5-14.5) Platelet Count 64 x10^3/uL (140-400) Neutrophils (%) (Auto) 46 % (31-73) Lymphocytes (%) (Auto) 33 % (24-48) Monocytes (%) (Auto) 17 % (0-9) Eosinophils (%) (Auto) 4 % (0-3) Basophils (%) (Auto) 1 % (0-3) Neutrophils # (Auto) 1.8 x10^3uL (1.8-7.7) Lymphocytes # (Auto) 1.3 x10^3/uL (1.0-4.8) Monocytes # (Auto) 0.6 x10^3/uL (0.0-1.1) Eosinophils # (Auto) 0.1 x10^3/uL (0.0-0.7) Basophils # (Auto) 0.0 x10^3/uL (0.0-0.2) Prothrombin Time 21.0 SEC (11.7-14.0) Prothromb Time International Ratio 1.8 (0.8-1.1) Sodium Level 128 mmol/L (136-145) Potassium Level 4.9 mmol/L (3.5-5.1) Chloride Level 98 mmol/L (98-107) Carbon Dioxide Level 20 mmol/L (21-32) Anion Gap 10 (6-14) Blood Urea Nitrogen 57 mg/dL (8-26) Creatinine 2.2 mg/dL (0.7-1.3) Estimated GFR (Cockcroft-Gault) 31.1 Glucose Level 119 mg/dL (70-99) Calcium Level 8.5 mg/dL (8.5-10.1) Total Bilirubin 2.2 mg/dL (0.2-1.0) Direct Bilirubin 0.9 mg/dL (0.0-0.2) Aspartate Amino Transf (AST/SGOT) 31 U/L (15-37) Alanine Aminotransferase (ALT/SGPT) 27 U/L (16-63) Alkaline Phosphatase 98 U/L (46-116) Total Protein 5.7 g/dL (6.4-8.2) Albumin 2.5 g/dL (3.4-5.0) Medications Current Medications Ondansetron HCl (Zofran) 4 mg 1X ONCE IV Last administered on 09/15/18 09:09 ; Start 09/15/18 at 08:45; Stop 09/15/18 at 08:46; Status DC Morphine Sulfate (Morphine Sulfate) 5 mg 1X ONCE IV Last administered on at 09:12; Start 09/15/18 at 08:45; Stop 09/15/18 at 08:46; Status DC Sodium Chloride 1,000 ml @ 1,000 mls/hr 1X ONCE IV Last administered on at 09:45; Start 09/15/18 at 09:45; Stop 09/15/18 at 10:44; Status DC Fentanyl Citrate (Fentanyl 2ml Vial) 50 mcg 1X ONCE IV Last administered on at 12:49; Start 09/15/18 at 12:45; Stop 09/15/18 at 12:46; Status DC Ondansetron HCl (Zofran) 4 mg PRN Q8HRS PRN IV NAUSEA/VOMITING; Start 09/15/18 at 13:00; Stop 09/16/18 at 07:37; Status DC Fentanyl Citrate (Fentanyl 2ml Vial) 50 mcg PRN Q1HR PRN IV PAIN Last administered on 09/16/18at 08:38; Start 09/15/18 at 13:00; Stop 09/16/18 at 12:59 ; Status DC Sodium Polystyrene Sulfonate (Kayexalate) 15 gm 1X ONCE PO ; Start 09/15/18 at 13:00; Stop 09/15/18 at 13:01; Status DC Rifaximin (Xifaxan) 550 mg Q12HR PO Last administered on 09/18/18at 08:46; Start 09/15/18 at 21:00 Tramadol HCl (Ultram) 50 mg PRN Q6HRS PRN PO PAIN Last administered on at 14:51; Start 09/15/18 at 16:15 Ondansetron HCl (Zofran) 4 mg PRN Q6HRS PRN IV NAUSEA/VOMITING; Start 09/15/18 at 16:15 Acetaminophen (Tylenol) 650 mg PRN Q6HRS PRN PO Headaches, Temp > 101.5F; Start 09/15/18 at 16:15 Lactulose (Lactulose) 20 gm PRN Q12HR PRN PO CONSTIPATION; Start 09/15/18 at 16 :15 Phytonadione (Vitamin K Ampule) 10 mg 1X ONCE SQ Last administered on at 08:37; Start 09/16/18 at 09:00; Stop 09/16/18 at 09:01; Status DC Albumin Human 100 ml @ As Directed STK-MED ONCE IV ; Start 09/16/18 at 13:15; Stop 09/16/18 at 13:16; Status DC Albumin Human 100 ml @ 100 mls/hr 1X ONCE IV Last administered on 09/16/18at 13:50; Start 09/16/18 at 13:30; Stop 09/16/18 at 14:29; Status DC Albumin Human 100 ml @ As Directed STK-MED ONCE IV ; Start 09/16/18 at 13:36; Stop 09/16/18 at 13:37; Status DC Albumin Human 100 ml @ 100 mls/hr 1X ONCE IV Last administered on 09/16/18at 13:50; Start 09/16/18 at 14:30; Stop 09/16/18 at 15:29; Status DC Pantoprazole Sodium (Protonix) 40 mg DAILYAC PO Last administered on 09/18/18at 08:46; Start 09/16/18 at 16:00 Sodium Chloride 500 ml @ 500 mls/hr 1X ONCE IV Last administered on at 16:15; Start 09/16/18 at 16:15; Stop 09/16/18 at 17:14; Status DC Morphine Sulfate (Morphine Sulfate) 2 mg PRN Q2HR PRN IV PAIN Last administered on 09/18/18at 08:48; Start 09/16/18 at 21:45 Furosemide (Lasix) 40 mg DAILY PO Last administered on 09/17/18at 10:46; Start 09/17/18 at 10:30; Stop 09/18/18 at 09:00; Status DC Spironolactone (Aldactone) 50 mg QODAY PO ; Start 09/18/18 at 09:00; Stop at 09:00; Status DC Active Scripts Active [Pantoprazole] 40 MG Tablet.dr 40 Mg PO DAILYAC MDD 1 Lactulose 20 Gm/30 Ml Solution 20 Gm PO PRN Q12HR PRN MDD 1 30 Days Xifaxan (Rifaximin) 550 Mg Tablet 550 Mg PO Q12HR MDD 1 Tramadol Hcl 50 Mg Tablet 50 Mg PO Q6HRS PRN 7 Days Lasix (Furosemide) 40 Mg Tablet 1 Tab PO DAILY Aldactone (Spironolactone) 25 Mg Tablet 50 Mg PO QODAY Vitals/I & O Vital Sign - Last 24 Hours 09/17/18 09/17/18 09/17/18 09/17/18 10:32 11:00 12:47 14:31 Temp 98.6 98.2 98.6 98.6 98.2 98.6 Pulse 107 115 103 Resp 18 14 B/P (MAP) 96/61 94/62 (73) 98/65 Pulse Ox 99 O2 Delivery Room Air Room Air 09/17/18 09/17/18 09/17/18 09/17/18 15:00 19:00 20:05 20:09 Temp 98.4 98.4 98.4 98.4 Pulse 117 110 Resp 16 20 18 B/P (MAP) 88/61 (70) 86/57 (67) Pulse Ox 99 97 97 O2 Delivery Room Air Room Air Room Air Room Air O2 Flow Rate 99.0 99.0 09/17/18 09/18/18 09/18/18 09/18/18 23:00 00:24 00:54 02:43 Temp 98.7 98.7 Pulse 117 Resp 18 18 B/P (MAP) 98/59 (72) Pulse Ox 98 98 98 O2 Delivery Room Air Room Air Room Air O2 Flow Rate 99.0 99.0 09/18/18 09/18/18 09/18/18 09/18/18 03:11 03:13 07:00 08:48 Temp 98.5 98.5 98.5 98.5 Pulse 121 112 Resp 18 B/P (MAP) 98/63 (75) 99/61 (74) Pulse Ox 98 98 97 O2 Delivery Room Air Room Air Room Air 09/18/18 10:10 O2 Delivery Room Air Intake and Output 09/17/18 09/17/18 09/18/18 15:00 23:00 07:00 Intake Total 308 ml 120 ml Output Total 150 ml Balance 308 ml -30 ml Nutrition Consultation Dietary Evaluation: Recommendations by RD: Increase Calorie Intake Comments: Recommend continue low Na diet, honor food preferences, and provide snacks as requested Expected Outcomes/Goals: P.O. intake to meet >75% estimated nutrition needs Interpretation of weight loss: >5% in 1 month Malnutrition Findings: Body Fat Depletion (Non Severe: Mild Depletion Weight Status: Overweight ALEIDA VAUGHAN MD Sep 18, 2018 10:30
--- NOTE | 2018-09-18 10:36 | PDOC ---
SUBJECTIVE ROS Follow-up of acute renal failure Patient denies any new complaints currently. Appears somewhat drowsy and is not able to provide review of systems accurately OBJECTIVE Vital Signs Vital Signs Date Time Temp Pulse Resp B/P (MAP) Pulse Ox O2 Delivery O2 Flow Rate FiO2 09/18/18 10:10 Room Air 09/18/18 07:00 98.5 112 18 99/61 (74) 97 98.5 09/18/18 00:54 99.0 I & 0 Intake and Output 09/18/18 07:00 Intake Total 428 ml Output Total 150 ml Balance 278 ml Intake Oral 120 ml Blood Product IV Normal Saline Flush 308 ml Output Urine Total 150 ml # Voids 1 PHYSICAL EXAM Physical Exam GEN: Awake, Oriented x 1-2 , In no visible distress EYES: Vision Unchanged, Conjunctiva Normal EN: No EN Drainage, Mucous Membranes dryish NECK: no JVD, + JVP, Supple, no Thyromegaly CVS: S1S2, soft Murmur, No Gallop, No Rub,+ Edema RESP: no Rales, no Rhonchi,no Acc. Muscle Use GI: BS + ve, NO Bruit, Non Tender, Min Distended : no CVA tenderness, no Suprapubic Tenderness DIAGNOSIS/ASSESSMENT Assessment & Plan Acute kidney injury: Urine output is poorly recorded. Cannot rule out hepatorenal state. We'll check urine sodium and start IV albumin given recent paracentesis. Recent imaging studies have not reported any significant renal abnormality per se (kidneys were not mentioned on CT report) Current fluid and E-lyte status does not necessitate emergent need for dialysis. Will re- evaluate for dialysis in the am Oligo anuria: IV normal saline bolus may be required 1 given recent large- volume paracentesis. Hyponatremia: Appears to be improving currently. We'll continue to watch trend ANEMIA; in the setting of liver failure. Patient presumably received blood transfusion yesterday and hemoglobin is up to 8.1 today. HTN: Current BP meds as reviewed. See orders for changes. Liver cirrhosis with possible underlying hepatic encephalopathy cannot be ruled out. COMMENT/RELEVANT DATA Meds Current Medications Medications (Trade) Dose Ordered Sig/Marc Start Time Stop Time Status Last Admin Dose Admin Acetaminophen (Tylenol) 650 mg PRN Q6HRS PRN 09/15/18 16:15 Albumin Human 100 ml @ 100 mls/hr 1X ONCE 09/16/18 14:30 09/16/18 15:29 DC 09/16/18 13:50 100 MLS/HR Fentanyl Citrate (Fentanyl 2ml Vial) 50 mcg PRN Q1HR PRN 09/15/18 13:00 09/16/18 12:59 DC 09/16/18 08:38 50 MCG Furosemide (Lasix) 40 mg DAILY 09/17/18 10:30 09/18/18 09:00 DC 09/17/18 10:46 40 MG Lactulose (Lactulose) 20 gm PRN Q12HR PRN 09/15/18 16:15 Morphine Sulfate (Morphine Sulfate) 2 mg PRN Q2HR PRN 09/16/18 21:45 09/18/18 08:48 2 MG Ondansetron HCl (Zofran) 4 mg PRN Q6HRS PRN 09/15/18 16:15 Pantoprazole Sodium (Protonix) 40 mg DAILYAC 09/16/18 16:00 09/18/18 08:46 40 MG Phytonadione (Vitamin K Ampule) 10 mg 1X ONCE 09/16/18 09:00 09/16/18 09:01 DC 09/16/18 08:37 10 MG Rifaximin (Xifaxan) 550 mg Q12HR 09/15/18 21:00 09/18/18 08:46 550 MG Sodium Polystyrene Sulfonate (Kayexalate) 15 gm 1X ONCE 09/15/18 13:00 09/15/18 13:01 DC Sodium Chloride 500 ml @ 500 mls/hr 1X ONCE 09/16/18 16:15 09/16/18 17:14 DC 09/16/18 16:15 500 MLS/HR Spironolactone (Aldactone) 50 mg QODAY 09/18/18 09:00 09/18/18 09:00 DC Tramadol HCl (Ultram) 50 mg PRN Q6HRS PRN 09/15/18 16:15 09/16/18 14:51 50 MG Lab Laboratory Tests Test 09/18/18 03:45 White Blood Count 3.9 x10^3/uL (4.0-11.0) Red Blood Count 2.81 x10^6/uL (4.30-5.70) Hemoglobin 8.1 g/dL (13.0-17.5) Hematocrit 24.3 % (39.0-53.0) Mean Corpuscular Volume 87 fL (79-100) Mean Corpuscular Hemoglobin 29 pg (25-35) Mean Corpuscular Hemoglobin Concent 33 g/dL (31-37) Red Cell Distribution Width 15.9 % (11.5-14.5) Platelet Count 64 x10^3/uL (140-400) Neutrophils (%) (Auto) 46 % (31-73) Lymphocytes (%) (Auto) 33 % (24-48) Monocytes (%) (Auto) 17 % (0-9) Eosinophils (%) (Auto) 4 % (0-3) Basophils (%) (Auto) 1 % (0-3) Neutrophils # (Auto) 1.8 x10^3uL (1.8-7.7) Lymphocytes # (Auto) 1.3 x10^3/uL (1.0-4.8) Monocytes # (Auto) 0.6 x10^3/uL (0.0-1.1) Eosinophils # (Auto) 0.1 x10^3/uL (0.0-0.7) Basophils # (Auto) 0.0 x10^3/uL (0.0-0.2) Prothrombin Time 21.0 SEC (11.7-14.0) Prothromb Time International Ratio 1.8 (0.8-1.1) Sodium Level 128 mmol/L (136-145) Potassium Level 4.9 mmol/L (3.5-5.1) Chloride Level 98 mmol/L (98-107) Carbon Dioxide Level 20 mmol/L (21-32) Anion Gap 10 (6-14) Blood Urea Nitrogen 57 mg/dL (8-26) Creatinine 2.2 mg/dL (0.7-1.3) Estimated GFR (Cockcroft-Gault) 31.1 Glucose Level 119 mg/dL (70-99) Calcium Level 8.5 mg/dL (8.5-10.1) Total Bilirubin 2.2 mg/dL (0.2-1.0) Direct Bilirubin 0.9 mg/dL (0.0-0.2) Aspartate Amino Transf (AST/SGOT) 31 U/L (15-37) Alanine Aminotransferase (ALT/SGPT) 27 U/L (16-63) Alkaline Phosphatase 98 U/L (46-116) Total Protein 5.7 g/dL (6.4-8.2) Albumin 2.5 g/dL (3.4-5.0) Results All relevant outside records, renal labs, imaging studies, telemetry/EKG's were reviewed. RUPERTO GIL MD Sep 18, 2018 10:36
[2018-09-18] MEDS ORDERED: IV NORMAL SALINE 500ML BAG 500 ML IV PRN (10:45)
[2018-09-18 10:55] LABS: URIC ACID 11.7 mg/dL (3.5-7.2)
[2018-09-18 11:00] VITALS: BP 103/70
[2018-09-18] MEDS: ALBUMIN HUMAN 25% 100 ML IV SCH ×2 (12:20→22:32)
[2018-09-18 15:00] VITALS: BP 110/68
[2018-09-18 19:00] VITALS: BP 105/69
[2018-09-18 23:00] VITALS: BP 100/62
[2018-09-19] MEDS: MORPHINE SULFATE 4 MG/ML VIAL. IV PRN ×3 (01:23→07:48)
--- NOTE | 2018-09-19 01:27 | NUR ---
When asked if pt has used his urinal to void, pt states he forgot to. Explained to pt for the second time the importance of using the urinal. Pt declines the use of a horan catheter to obtain urine specimen and keep I&O. Pt states he has voided "small amounts" 2 times since 1900. Reinterated the importance of doctors orders for strict I&O and the need for a urine sample. Pt vu.
[2018-09-19 03:11] VITALS: BP 94/65
[2018-09-19 04:21] LABS: ALBUMIN 3.3 g/dL (3.4-5.0); CALCIUM 8.9 mg/dL (8.5-10.1); CREATININE 2.4 mg/dL (0.7-1.3); DIRECT BILIRUBIN 0.8 mg/dL (0.0-0.2); GFR 28.1; TOTAL BILIRUBIN 2.1 mg/dL (0.2-1.0); TOTAL PROTEIN 6.7 g/dL (6.4-8.2)
[2018-09-19 04:35] LABS: PROTHROMBIN TIME PATIENT 21.1 SEC (11.7-14.0)
[2018-09-19 07:00] VITALS: BP 101/62
[2018-09-19] MEDS: PANTOPRAZOLE 40 MG TABLET.DR. PO SCH (07:47)
[2018-09-19] MEDS: ALBUMIN HUMAN 25% 100 ML IV SCH ×3 (08:26→22:15)
[2018-09-19] MEDS: rifAXIMin 550 MG TABLET PO SCH ×2 (08:26→22:15)
--- NOTE | 2018-09-19 08:39 | NUR ---
SW following pt. Pt is from home with spouse and will return home upon dc. Will continue to follow.
[2018-09-19 08:45] LABS: BILIRUBIN,URINE NEGATIVE (NEG); CLARITY,URINE CLEAR; COLOR,URINE YELLOW; NITRITE,URINE NEGATIVE (NEG); PROTEIN,URINE NEGATIVE (NEG-TRACE); UROBILINOGEN,URINE 0.2 mg/dL (0.2 mg/dL)
[2018-09-19 08:56] LABS: BACTERIA,URINE MANY /HPF (0-FEW)
[2018-09-19 08:57] LABS: HYALINE CASTS, URINE MODERATE /HPF; RBC,URINE OCC /HPF (0-2)
--- NOTE | 2018-09-19 09:33 | RAD ---
Ultrasound-guided paracentesis 09/19/2018 9:30 AM Procedure: The risks and benefits of the procedure were discussed the patient. Informed consent was obtained. A timeout procedure was performed. Sonographic evaluation of the abdomen was performed demonstrating ascites . The left lower quadrant was prepped and draped using maximum sterile barrier technique. 1% lidocaine without epinephrine was administered for local anesthesia. Real-time ultrasonographic guidance was used in passing a 5 Polish Yueh catheter into the fluid collection. 9 L of serous ascites was removed. The catheter was removed and pressure held to achieve hemostasis. A sterile dressing was applied. Impression: Successful ultrasound-guided paracentesis
[2018-09-19] MEDS: LEVOTHYROXINE 100 MCG TABLET PO SCH (09:38)
[2018-09-19 10:46] VITALS: BP 96/65
--- NOTE | 2018-09-19 11:36 | PDOC ---
PROGRESS NOTES Chief Complaint Chief Complaint Advanced liver cirrhosis Advanced kidney disease in the background of #1 Anemia of chronic disease Thrombocytopenia Leukopenia Hyponatremia Moderate to severe PCM Generalized weakness Chronic leg swelling and ascites Alcohol drinking, hx History of Present Illness History of Present Illness Paracenteses 8 L 09/16/18 status post albumin hemoGlobin 8.1 after blood transfusion for hemoglobin 6.8 over the weekend Creatinine up to 2 .4 today and continues to increase There was an element of prerenal azotemia upon admission But he does get fluid overloaded easy Seems less interested today about the numbers that I was giving him. I did mention hospice or palliative but he did not respond Renal has now ordered strict I stenosis Aldactone every other day and Lasix 40 once a day has been on hold Platelets 50 also got platelets-platelets were in the teens on admission - no bleeding but has old bruises NO PT needs He has a that we'll make decision for him when the time comes Overall prognosis poor, frequency of admissions, chronic comorbidities-hospice candidate but not ready PLAN: Consult palliative Continue to hold Aldactone and Lasix I and O, strict by renal BMP again tomorrow Recheck H&H, needed blood transfusion Wednesday or Wednesday Vitals Vitals Vital Signs Date Time Temp Pulse Resp B/P (MAP) Pulse Ox O2 Delivery O2 Flow Rate FiO2 09/19/18 10:46 98.2 104 18 96/65 (75) 99 Room Air 98.2 Physical Exam General: Alert, Oriented X3, Cooperative, mild distress Heart: Regular rate Lungs: Clear Abdomen: Normal bowel sounds, Soft, Other ( DISTENDED) Extremities: No clubbing, No cyanosis, Normal pulses, Other (2+ edema) Skin: Other (MULTIPLE BRUISES) Labs LABS Laboratory Tests Test 09/19/18 03:10 09/19/18 05:00 09/19/18 09:45 Prothrombin Time 21.1 SEC (11.7-14.0) Prothromb Time International Ratio 1.9 (0.8-1.1) Sodium Level 129 mmol/L (136-145) Potassium Level 5.0 mmol/L (3.5-5.1) Chloride Level 98 mmol/L (98-107) Carbon Dioxide Level 20 mmol/L (21-32) Anion Gap 11 (6-14) Blood Urea Nitrogen 57 mg/dL (8-26) Creatinine 2.4 mg/dL (0.7-1.3) Estimated GFR (Cockcroft-Gault) 28.1 Glucose Level 129 mg/dL (70-99) Calcium Level 8.9 mg/dL (8.5-10.1) Total Bilirubin 2.1 mg/dL (0.2-1.0) Direct Bilirubin 0.8 mg/dL (0.0-0.2) Aspartate Amino Transf (AST/SGOT) 32 U/L (15-37) Alanine Aminotransferase (ALT/SGPT) 24 U/L (16-63) Alkaline Phosphatase 92 U/L (46-116) Total Protein 6.7 g/dL (6.4-8.2) Albumin 3.3 g/dL (3.4-5.0) Urine Collection Type Unknown Urine Color Yellow Urine Clarity Clear Urine pH 5.0 Urine Specific [place] 1.015 Urine Protein Negative mg/dL (NEG-TRACE) Urine Glucose (UA) Negative mg/dL (NEG) Urine Ketones (Stick) Negative mg/dL (NEG) Urine Blood Small (NEG) Urine Nitrite Negative (NEG) Urine Bilirubin Negative (NEG) Urine Urobilinogen Dipstick 0.2 mg/dL (0.2 mg/dL) Urine Leukocyte Esterase Negative (NEG) Urine RBC Occ /HPF (0-2) Urine WBC 1-4 /HPF (0-4) Urine Bacteria Many /HPF (0-FEW) Urine Hyaline Casts Moderate /HPF Ammonia 119 mcmol/L (11-34) Review of Systems Review of Systems Unobtainable, he is uncooperative for me today Assessment and Plan Assessmemt and Plan Problems Medical Problems: (1) Anemia Status: Acute (2) Ascites Status: Acute (3) Hyperkalemia Status: Acute (4) Renal failure Status: Acute Comment Review of Relevant I have reviewed the following items arlette (where applicable) has been applied. Labs Laboratory Tests Test 09/18/18 03:45 09/19/18 03:10 09/19/18 05:00 09/19/18 09:45 White Blood Count 3.9 x10^3/uL (4.0-11.0) Red Blood Count 2.81 x10^6/uL (4.30-5.70) Hemoglobin 8.1 g/dL (13.0-17.5) Hematocrit 24.3 % (39.0-53.0) Mean Corpuscular Volume 87 fL (79-100) Mean Corpuscular Hemoglobin 29 pg (25-35) Mean Corpuscular Hemoglobin Concent 33 g/dL (31-37) Red Cell Distribution Width 15.9 % (11.5-14.5) Platelet Count 64 x10^3/uL (140-400) Neutrophils (%) (Auto) 46 % (31-73) Lymphocytes (%) (Auto) 33 % (24-48) Monocytes (%) (Auto) 17 % (0-9) Eosinophils (%) (Auto) 4 % (0-3) Basophils (%) (Auto) 1 % (0-3) Neutrophils # (Auto) 1.8 x10^3uL (1.8-7.7) Lymphocytes # (Auto) 1.3 x10^3/uL (1.0-4.8) Monocytes # (Auto) 0.6 x10^3/uL (0.0-1.1) Eosinophils # (Auto) 0.1 x10^3/uL (0.0-0.7) Basophils # (Auto) 0.0 x10^3/uL (0.0-0.2) Prothrombin Time 21.0 SEC (11.7-14.0) 21.1 SEC (11.7-14.0) Prothromb Time International Ratio 1.8 (0.8-1.1) 1.9 (0.8-1.1) Sodium Level 128 mmol/L (136-145) 129 mmol/L (136-145) Potassium Level 4.9 mmol/L (3.5-5.1) 5.0 mmol/L (3.5-5.1) Chloride Level 98 mmol/L (98-107) 98 mmol/L (98-107) Carbon Dioxide Level 20 mmol/L (21-32) 20 mmol/L (21-32) Anion Gap 10 (6-14) 11 (6-14) Blood Urea Nitrogen 57 mg/dL (8-26) 57 mg/dL (8-26) Creatinine 2.2 mg/dL (0.7-1.3) 2.4 mg/dL (0.7-1.3) Estimated GFR (Cockcroft-Gault) 31.1 28.1 Glucose Level 119 mg/dL (70-99) 129 mg/dL (70-99) Uric Acid 11.7 mg/dL (3.5-7.2) Calcium Level 8.5 mg/dL (8.5-10.1) 8.9 mg/dL (8.5-10.1) Total Bilirubin 2.2 mg/dL (0.2-1.0) 2.1 mg/dL (0.2-1.0) Direct Bilirubin 0.9 mg/dL (0.0-0.2) 0.8 mg/dL (0.0-0.2) Aspartate Amino Transf (AST/SGOT) 31 U/L (15-37) 32 U/L (15-37) Alanine Aminotransferase (ALT/SGPT) 27 U/L (16-63) 24 U/L (16-63) Alkaline Phosphatase 98 U/L (46-116) 92 U/L (46-116) Creatine Kinase 37 U/L (39-308) Total Protein 5.7 g/dL (6.4-8.2) 6.7 g/dL (6.4-8.2) Albumin 2.5 g/dL (3.4-5.0) 3.3 g/dL (3.4-5.0) Urine Collection Type Unknown Urine Color Yellow Urine Clarity Clear Urine pH 5.0 Urine Specific [place] 1.015 Urine Protein Negative mg/dL (NEG-TRACE) Urine Glucose (UA) Negative mg/dL (NEG) Urine Ketones (Stick) Negative mg/dL (NEG) Urine Blood Small (NEG) Urine Nitrite Negative (NEG) Urine Bilirubin Negative (NEG) Urine Urobilinogen Dipstick 0.2 mg/dL (0.2 mg/dL) Urine Leukocyte Esterase Negative (NEG) Urine RBC Occ /HPF (0-2) Urine WBC 1-4 /HPF (0-4) Urine Bacteria Many /HPF (0-FEW) Urine Hyaline Casts Moderate /HPF Ammonia 119 mcmol/L (11-34) Laboratory Tests Test 09/19/18 03:10 09/19/18 05:00 09/19/18 09:45 Prothrombin Time 21.1 SEC (11.7-14.0) Prothromb Time International Ratio 1.9 (0.8-1.1) Sodium Level 129 mmol/L (136-145) Potassium Level 5.0 mmol/L (3.5-5.1) Chloride Level 98 mmol/L (98-107) Carbon Dioxide Level 20 mmol/L (21-32) Anion Gap 11 (6-14) Blood Urea Nitrogen 57 mg/dL (8-26) Creatinine 2.4 mg/dL (0.7-1.3) Estimated GFR (Cockcroft-Gault) 28.1 Glucose Level 129 mg/dL (70-99) Calcium Level 8.9 mg/dL (8.5-10.1) Total Bilirubin 2.1 mg/dL (0.2-1.0) Direct Bilirubin 0.8 mg/dL (0.0-0.2) Aspartate Amino Transf (AST/SGOT) 32 U/L (15-37) Alanine Aminotransferase (ALT/SGPT) 24 U/L (16-63) Alkaline Phosphatase 92 U/L (46-116) Total Protein 6.7 g/dL (6.4-8.2) Albumin 3.3 g/dL (3.4-5.0) Urine Collection Type Unknown Urine Color Yellow Urine Clarity Clear Urine pH 5.0 Urine Specific [place] 1.015 Urine Protein Negative mg/dL (NEG-TRACE) Urine Glucose (UA) Negative mg/dL (NEG) Urine Ketones (Stick) Negative mg/dL (NEG) Urine Blood Small (NEG) Urine Nitrite Negative (NEG) Urine Bilirubin Negative (NEG) Urine Urobilinogen Dipstick 0.2 mg/dL (0.2 mg/dL) Urine Leukocyte Esterase Negative (NEG) Urine RBC Occ /HPF (0-2) Urine WBC 1-4 /HPF (0-4) Urine Bacteria Many /HPF (0-FEW) Urine Hyaline Casts Moderate /HPF Ammonia 119 mcmol/L (11-34) Medications Current Medications Ondansetron HCl (Zofran) 4 mg 1X ONCE IV Last administered on 09/15/18at 09:09 ; Start 09/15/18 at 08:45; Stop 09/15/18 at 08:46; Status DC Morphine Sulfate (Morphine Sulfate) 5 mg 1X ONCE IV Last administered on at 09:12; Start 09/15/18 at 08:45; Stop 09/15/18 at 08:46; Status DC Sodium Chloride 1,000 ml @ 1,000 mls/hr 1X ONCE IV Last administered on at 09:45; Start 09/15/18 at 09:45; Stop 09/15/18 at 10:44; Status DC Fentanyl Citrate (Fentanyl 2ml Vial) 50 mcg 1X ONCE IV Last administered on at 12:49; Start 09/15/18 at 12:45; Stop 09/15/18 at 12:46; Status DC Ondansetron HCl (Zofran) 4 mg PRN Q8HRS PRN IV NAUSEA/VOMITING; Start 09/15/18 at 13:00; Stop 09/16/18 at 07:37; Status DC Fentanyl Citrate (Fentanyl 2ml Vial) 50 mcg PRN Q1HR PRN IV PAIN Last administered on 09/16/18at 08:38; Start 09/15/18 at 13:00; Stop 09/16/18 at 12:59 ; Status DC Sodium Polystyrene Sulfonate (Kayexalate) 15 gm 1X ONCE PO ; Start 09/15/18 at 13:00; Stop 09/15/18 at 13:01; Status DC Rifaximin (Xifaxan) 550 mg Q12HR PO Last administered on 09/19/18at 08:26; Start 09/15/18 at 21:00 Tramadol HCl (Ultram) 50 mg PRN Q6HRS PRN PO PAIN Last administered on at 14:51; Start 09/15/18 at 16:15 Ondansetron HCl (Zofran) 4 mg PRN Q6HRS PRN IV NAUSEA/VOMITING; Start 09/15/18 at 16:15 Acetaminophen (Tylenol) 650 mg PRN Q6HRS PRN PO Headaches, Temp > 101.5F; Start 09/15/18 at 16:15 Lactulose (Lactulose) 20 gm PRN Q12HR PRN PO CONSTIPATION; Start 09/15/18 at 16 :15 Phytonadione (Vitamin K Ampule) 10 mg 1X ONCE SQ Last administered on at 08:37; Start 09/16/18 at 09:00; Stop 09/16/18 at 09:01; Status DC Albumin Human 100 ml @ As Directed STK-MED ONCE IV ; Start 09/16/18 at 13:15; Stop 09/16/18 at 13:16; Status DC Albumin Human 100 ml @ 100 mls/hr 1X ONCE IV Last administered on 09/16/18at 13:50; Start 09/16/18 at 13:30; Stop 09/16/18 at 14:29; Status DC Albumin Human 100 ml @ As Directed STK-MED ONCE IV ; Start 09/16/18 at 13:36; Stop 09/16/18 at 13:37; Status DC Albumin Human 100 ml @ 100 mls/hr 1X ONCE IV Last administered on 09/16/18at 13:50; Start 09/16/18 at 14:30; Stop 09/16/18 at 15:29; Status DC Pantoprazole Sodium (Protonix) 40 mg DAILYAC PO Last administered on 09/19/18at 07:47; Start 09/16/18 at 16:00 Sodium Chloride 500 ml @ 500 mls/hr 1X ONCE IV Last administered on at 16:15; Start 09/16/18 at 16:15; Stop 09/16/18 at 17:14; Status DC Morphine Sulfate (Morphine Sulfate) 2 mg PRN Q2HR PRN IV PAIN Last administered on 09/19/18at 07:48; Start 09/16/18 at 21:45; Stop 09/19/18 at 09:25 ; Status DC Furosemide (Lasix) 40 mg DAILY PO Last administered on 09/17/18at 10:46; Start 09/17/18 at 10:30; Stop 09/18/18 at 09:00; Status DC Spironolactone (Aldactone) 50 mg QODAY PO ; Start 09/18/18 at 09:00; Stop at 09:00; Status DC Albumin Human 100 ml @ 100 mls/hr TID IV Last administered on 09/19/18at 08:26 ; Start 09/18/18 at 11:00; Stop 09/20/18 at 09:59 Sodium Chloride 500 ml @ 0 mls/hr QID PRN IV UO< 30cc/hr over previous 6hrs; Start 09/18/18 at 10:45 Morphine Sulfate (Morphine Sulfate) 1 mg PRN Q2HR PRN IV PAIN; Start 09/19/18 at 09:30 Levothyroxine Sodium (Synthroid) 100 mcg DAILY06 PO Last administered on at 09:38; Start 09/19/18 at 09:30 Active Scripts Active [Pantoprazole] 40 MG Tablet.dr 40 Mg PO DAILYAC MDD 1 Lactulose 20 Gm/30 Ml Solution 20 Gm PO PRN Q12HR PRN MDD 1 30 Days Xifaxan (Rifaximin) 550 Mg Tablet 550 Mg PO Q12HR MDD 1 Tramadol Hcl 50 Mg Tablet 50 Mg PO Q6HRS PRN 7 Days Lasix (Furosemide) 40 Mg Tablet 1 Tab PO DAILY Aldactone (Spironolactone) 25 Mg Tablet 50 Mg PO QODAY Vitals/I & O Vital Sign - Last 24 Hours 09/18/18 09/18/18 09/18/18 09/18/18 15:00 19:00 20:15 22:31 Temp 98.2 97.4 98.2 97.4 Pulse 111 120 Resp 20 20 20 B/P (MAP) 110/68 (82) 105/69 (81) Pulse Ox 98 99 O2 Delivery Room Air Room Air Room Air Room Air 09/18/18 09/19/18 09/19/18 09/19/18 23:00 01:23 03:11 05:09 Temp 98.3 97.8 98.3 97.8 Pulse 116 118 Resp 20 20 20 20 B/P (MAP) 100/62 (75) 94/65 (75) Pulse Ox 96 97 O2 Delivery Room Air Room Air Room Air Room Air 09/19/18 09/19/18 09/19/18 09/19/18 07:00 07:48 08:18 10:46 Temp 98.0 98.2 98.0 98.2 Pulse 109 104 Resp 18 18 18 18 B/P (MAP) 101/62 (75) 96/65 (75) Pulse Ox 97 99 O2 Delivery Room Air Room Air Room Air Room Air Intake and Output 09/18/18 09/18/18 09/19/18 15:00 23:00 07:00 Intake Total 600 ml 300 ml Output Total 200 ml Balance 600 ml 300 ml -200 ml Nutrition Consultation Dietary Evaluation: Recommendations by RD: Increase Calorie Intake Comments: Recommend continue low Na diet, honor food preferences, and provide snacks as requested Expected Outcomes/Goals: P.O. intake to meet >75% estimated nutrition needs Interpretation of weight loss: >5% in 1 month Malnutrition Findings: Body Fat Depletion (Non Severe: Mild Depletion Weight Status: Overweight ALEIDA VAUGHAN MD Sep 19, 2018 11:36
--- NOTE | 2018-09-19 13:23 | PDOC ---
Renal-Progress Notes Subjective Notes Notes SOMNOLENT History of Present Illness Hx of present illness STABLE Vitals Vitals Vital Signs Date Time Temp Pulse Resp B/P (MAP) Pulse Ox O2 Delivery O2 Flow Rate FiO2 09/19/18 10:46 98.2 104 18 96/65 (75) 99 Room Air 98.2 Weight Weight [ ] I.O. Intake and Output Intake and Output 09/19/18 06:59 Intake Total 900 ml Output Total 200 ml Balance 700 ml Intake Oral 800 ml IV Total 100 ml Output Urine Total 200 ml # Voids 3 Labs Labs Laboratory Tests Test 09/19/18 03:10 09/19/18 05:00 09/19/18 09:45 Prothrombin Time 21.1 SEC (11.7-14.0) Prothromb Time International Ratio 1.9 (0.8-1.1) Sodium Level 129 mmol/L (136-145) Potassium Level 5.0 mmol/L (3.5-5.1) Chloride Level 98 mmol/L (98-107) Carbon Dioxide Level 20 mmol/L (21-32) Anion Gap 11 (6-14) Blood Urea Nitrogen 57 mg/dL (8-26) Creatinine 2.4 mg/dL (0.7-1.3) Estimated GFR (Cockcroft-Gault) 28.1 Glucose Level 129 mg/dL (70-99) Calcium Level 8.9 mg/dL (8.5-10.1) Total Bilirubin 2.1 mg/dL (0.2-1.0) Direct Bilirubin 0.8 mg/dL (0.0-0.2) Aspartate Amino Transf (AST/SGOT) 32 U/L (15-37) Alanine Aminotransferase (ALT/SGPT) 24 U/L (16-63) Alkaline Phosphatase 92 U/L (46-116) Total Protein 6.7 g/dL (6.4-8.2) Albumin 3.3 g/dL (3.4-5.0) Urine Collection Type Unknown Urine Color Yellow Urine Clarity Clear Urine pH 5.0 Urine Specific [place] 1.015 Urine Protein Negative mg/dL (NEG-TRACE) Urine Glucose (UA) Negative mg/dL (NEG) Urine Ketones (Stick) Negative mg/dL (NEG) Urine Blood Small (NEG) Urine Nitrite Negative (NEG) Urine Bilirubin Negative (NEG) Urine Urobilinogen Dipstick 0.2 mg/dL (0.2 mg/dL) Urine Leukocyte Esterase Negative (NEG) Urine RBC Occ /HPF (0-2) Urine WBC 1-4 /HPF (0-4) Urine Bacteria Many /HPF (0-FEW) Urine Hyaline Casts Moderate /HPF Ammonia 119 mcmol/L (11-34) Review of Systems Constitutional: yes: other (CONFUSED) Physical Exam Skin: warm Respiratory: decreased breath sounds Heart: S1S2 Abdomen: soft, bowel sounds present Genitourinary: bladder flat Extremities: pulses present Neurology: confused Assessment Assessment IMP LIVER [id number] RELATED HYPONATREMIA-BETTER 121 TO 129 ANEMIA-BETTER JERROD-IMPROVING WITH CR DOWN TO 2.4 CKD STAGE 3 WITH BASELINE CR OF 1.8-2.1 PANCYTOPENIA MALNUTRITION DECONDITIONING LE EDEMA ENCEPHALOPATHY PLAN AGREE WITH HOLDING DIURETICS BUT MAY NEED TO START SOON AGREE WITH PALLIATIVE CARE EVAL LAST PARACENTESIS ON LAST WEEK WILL FOLLOW LINDA ARAGON MD Sep 19, 2018 13:23
--- NOTE | 2018-09-19 13:35 | PDOC ---
Objective: Vital Signs: Vital Signs Date Time Temp Pulse Resp B/P (MAP) Pulse Ox O2 Delivery O2 Flow Rate FiO2 09/19/18 10:46 98.2 104 18 96/65 (75) 99 Room Air 98.2 Labs: Laboratory Tests Test 09/19/18 03:10 09/19/18 05:00 09/19/18 09:45 Prothrombin Time 21.1 SEC Prothromb Time International Ratio 1.9 Sodium Level 129 mmol/L Potassium Level 5.0 mmol/L Chloride Level 98 mmol/L Carbon Dioxide Level 20 mmol/L Anion Gap 11 Blood Urea Nitrogen 57 mg/dL Creatinine 2.4 mg/dL Estimated GFR (Cockcroft-Gault) 28.1 Glucose Level 129 mg/dL Calcium Level 8.9 mg/dL Total Bilirubin 2.1 mg/dL Direct Bilirubin 0.8 mg/dL Aspartate Amino Transf (AST/SGOT) 32 U/L Alanine Aminotransferase (ALT/SGPT) 24 U/L Alkaline Phosphatase 92 U/L Total Protein 6.7 g/dL Albumin 3.3 g/dL Urine Collection Type Unknown Urine Color Yellow Urine Clarity Clear Urine pH 5.0 Urine Specific [place] 1.015 Urine Protein Negative mg/dL Urine Glucose (UA) Negative mg/dL Urine Ketones (Stick) Negative mg/dL Urine Blood Small Urine Nitrite Negative Urine Bilirubin Negative Urine Urobilinogen Dipstick 0.2 mg/dL Urine Leukocyte Esterase Negative Urine RBC Occ /HPF Urine WBC 1-4 /HPF Urine Bacteria Many /HPF Urine Hyaline Casts Moderate /HPF Ammonia 119 mcmol/L PE: GEN: NAD LUNGS: room air ABD: less distended NEURO/PSYCH: was asleep when I came by - briefly opened eyes A/P: Alcoholic cirrhosis Recurrent ascites - last paracentesis 9L 09/16/18 Hepatic encephalopathy Pancytopenia, coagulopathy - s/p transfusions CKD, hyponatremia -- Note palliative asked to see again - he has declined this in the past. Ammonia 119 - adjust lactulose dosing (currently PRN). ?PV shunt VALERIA ALCOCER Sep 19, 2018 13:35
[2018-09-19] MEDS: LACTULOSE 20 GM/30 ML SOLUTION. PO SCH ×3 (13:46→22:15)
[2018-09-19] MEDS: MORPHINE SULFATE 2 MG/ML VIAL. IV PRN ×2 (13:47→20:04)
--- NOTE | 2018-09-19 13:53 | PDOC2 ---
PALLIATIVE CARE Palliative Care Note Palliative Care Patient well know to PC. Medical Assessment per medical record Advanced liver cirrhosis Advanced kidney disease in the background of #1 Anemia of chronic disease Thrombocytopenia Leukopenia Hyponatremia Moderate to severe PCM Generalized weakness Chronic leg swelling and ascites Alcohol drinking, hx Patient refuses to talk about medical condition / goals/ Code Status. Crystal S /O is "out of town and will not talk without her" Code Status; Full Code. PC will assist as patient allows. NYA VIVEROS Sep 19, 2018 13:53
[2018-09-19 14:57] VITALS: BP 100/62
[2018-09-19 19:00] VITALS: BP_SYST 69; BP_SYST 96; BP_DIAS 69
[2018-09-19 23:00] VITALS: BP 97/63
[2018-09-20] MEDS: MORPHINE SULFATE 2 MG/ML VIAL. IV PRN ×5 (00:50→22:41)
[2018-09-20 03:00] VITALS: BP 111/69
[2018-09-20 04:27] LABS: HEMATOCRIT 22.4 % (39.0-53.0); HEMOGLOBIN 7.4 g/dL (13.0-17.5)
[2018-09-20 05:04] LABS: CREATININE 2.8 mg/dL (0.7-1.3); GFR 23.6; POTASSIUM 4.8 mmol/L (3.5-5.1)
[2018-09-20] MEDS: PANTOPRAZOLE 40 MG TABLET.DR. PO SCH (06:27)
[2018-09-20] MEDS: LEVOTHYROXINE 100 MCG TABLET PO SCH (06:27)
[2018-09-20 07:00] VITALS: BP 109/73
[2018-09-20] MEDS: LACTULOSE 20 GM/30 ML SOLUTION. PO SCH ×4 (07:47→22:00)
[2018-09-20] MEDS: rifAXIMin 550 MG TABLET PO SCH ×2 (07:47→22:00)
--- NOTE | 2018-09-20 09:16 | PDOC ---
Provider Note Provider Note IR NOTE Asked to see patient regarding PV shunt (Childress Shunt) for intractable ascites in setting of hepatic encephalopathy. Renal failure, especially requiring dialysis is a contraindication for the shut placement. Per nephrology notes the patient may soon need dialysis. If patient is considering palliative care situation, perhaps a tunneled catheter for home removal of ascites would best benefit him. KIAN BROWN MD Sep 20, 2018 09:16
[2018-09-20] MEDS: ALBUMIN HUMAN 25% 100 ML IV SCH (09:18)
--- NOTE | 2018-09-20 09:39 | PDOC ---
Subjective: Subjective: "I don't know." Objective: Objective: Reviewed IR note - not a candidate for PV shunt w/ renal issues. Reviewed PC note - he refused to talk. No stools charted. Vital Signs: Vital Signs Date Time Temp Pulse Resp B/P (MAP) Pulse Ox O2 Delivery O2 Flow Rate FiO2 09/20/18 08:17 18 Room Air 09/20/18 07:00 98.3 124 109/73 (85) 99 98.3 09/19/18 20:34 99.0 Labs: Laboratory Tests Test 09/19/18 09:45 09/20/18 03:55 Ammonia 119 mcmol/L Hemoglobin 7.4 g/dL Hematocrit 22.4 % Mean Corpuscular Hemoglobin Concent 33 g/dL Sodium Level 133 mmol/L Potassium Level 4.8 mmol/L Chloride Level 100 mmol/L Carbon Dioxide Level 19 mmol/L Anion Gap 14 Blood Urea Nitrogen 52 mg/dL Creatinine 2.8 mg/dL Estimated GFR (Cockcroft-Gault) 23.6 Glucose Level 115 mg/dL Calcium Level 9.0 mg/dL PE: GEN: NAD - focused on cutting a piece of gauze LUNGS: room air HEART: tachycardic ABD: distended - stable NEURO/PSYCH: won't say much A/P: Alcoholic cirrhosis, recurrent ascites, hepatic encephalopathy, CKD -- Difficult situation, other per Dr. Louis. VALERIA ALCOCER Sep 20, 2018 09:39
[2018-09-20 10:36] VITALS: BP 110/65
--- NOTE | 2018-09-20 11:28 | PDOC ---
PROGRESS NOTES Chief Complaint Chief Complaint Advanced liver cirrhosis Advanced kidney disease in the background of #1 Anemia of chronic disease Thrombocytopenia Leukopenia Hyponatremia Moderate to severe PCM Generalized weakness Chronic leg swelling and ascites Alcohol drinking, hx History of Present Illness History of Present Illness Not getting better Creatinine up to 2.8 from 2.4 from 2.0 GI thoughts about PV shunt by IR-but I'm being told IR will not do with worsening kidney function Confused yesterday-I have cut back on morphine and other meds Ammonia 119 and is getting lactulose, did have BM yesterday but so far none today Patient more awake today Patient is refusing to talk to me about palliative or seriousness of his disease -but I do think he knows that. Abdomen is not tense or fluid not reaccumulating yet he claims is out of state but apparently some reports that she was here yesterday Full code still per chart Plan: I appreciate palliative care note Continue lactulose Continue supportive treatment, overall prognosis poor guarded Strict SCOTT, Lasix and Aldactone still on hold also not getting IV fluids. Might need to restart-renal also on board EARLIER ENTRY: Paracenteses 8 L 09/16/18 status post albumin hemoGlobin 8.1 after blood transfusion for hemoglobin 6.8 over the weekend There was an element of prerenal azotemia upon admission But he does get fluid overloaded easy Platelets 50 also got platelets-platelets were in the teens on admission - no bleeding but has old bruises NO PT needs He has a that we'll make decision for him when the time comes Overall prognosis poor, frequency of admissions, chronic comorbidities-hospice candidate but not ready Vitals Vitals Vital Signs Date Time Temp Pulse Resp B/P (MAP) Pulse Ox O2 Delivery O2 Flow Rate FiO2 09/20/18 10:36 98.0 118 18 110/65 (80) 98 Room Air 98.0 09/19/18 20:34 99.0 Physical Exam General: Alert, Oriented X3, Cooperative, mild distress Heart: Regular rate Lungs: Clear Abdomen: Normal bowel sounds, Soft, Other ( DISTENDED) Extremities: No clubbing, No cyanosis, Normal pulses, Other (2+ edema) Skin: Other (MULTIPLE BRUISES) Labs LABS Laboratory Tests Test 09/20/18 03:55 Hemoglobin 7.4 g/dL (13.0-17.5) Hematocrit 22.4 % (39.0-53.0) Mean Corpuscular Hemoglobin Concent 33 g/dL (31-37) Sodium Level 133 mmol/L (136-145) Potassium Level 4.8 mmol/L (3.5-5.1) Chloride Level 100 mmol/L (98-107) Carbon Dioxide Level 19 mmol/L (21-32) Anion Gap 14 (6-14) Blood Urea Nitrogen 52 mg/dL (8-26) Creatinine 2.8 mg/dL (0.7-1.3) Estimated GFR (Cockcroft-Gault) 23.6 Glucose Level 115 mg/dL (70-99) Calcium Level 9.0 mg/dL (8.5-10.1) Review of Systems Review of Systems refuses to participate with ROS Assessment and Plan Assessmemt and Plan Problems Medical Problems: (1) Anemia Status: Acute (2) Ascites Status: Acute (3) Hyperkalemia Status: Acute (4) Renal failure Status: Acute Comment Review of Relevant I have reviewed the following items arlette (where applicable) has been applied. Labs Laboratory Tests Test 09/19/18 03:10 09/19/18 05:00 09/19/18 09:45 09/20/18 03:55 Prothrombin Time 21.1 SEC (11.7-14.0) Prothromb Time International Ratio 1.9 (0.8-1.1) Sodium Level 129 mmol/L (136-145) 133 mmol/L (136-145) Potassium Level 5.0 mmol/L (3.5-5.1) 4.8 mmol/L (3.5-5.1) Chloride Level 98 mmol/L (98-107) 100 mmol/L (98-107) Carbon Dioxide Level 20 mmol/L (21-32) 19 mmol/L (21-32) Anion Gap 11 (6-14) 14 (6-14) Blood Urea Nitrogen 57 mg/dL (8-26) 52 mg/dL (8-26) Creatinine 2.4 mg/dL (0.7-1.3) 2.8 mg/dL (0.7-1.3) Estimated GFR (Cockcroft-Gault) 28.1 23.6 Glucose Level 129 mg/dL (70-99) 115 mg/dL (70-99) Calcium Level 8.9 mg/dL (8.5-10.1) 9.0 mg/dL (8.5-10.1) Total Bilirubin 2.1 mg/dL (0.2-1.0) Direct Bilirubin 0.8 mg/dL (0.0-0.2) Aspartate Amino Transf (AST/SGOT) 32 U/L (15-37) Alanine Aminotransferase (ALT/SGPT) 24 U/L (16-63) Alkaline Phosphatase 92 U/L (46-116) Total Protein 6.7 g/dL (6.4-8.2) Albumin 3.3 g/dL (3.4-5.0) Urine Collection Type Unknown Urine Color Yellow Urine Clarity Clear Urine pH 5.0 Urine Specific [place] 1.015 Urine Protein Negative mg/dL (NEG-TRACE) Urine Glucose (UA) Negative mg/dL (NEG) Urine Ketones (Stick) Negative mg/dL (NEG) Urine Blood Small (NEG) Urine Nitrite Negative (NEG) Urine Bilirubin Negative (NEG) Urine Urobilinogen Dipstick 0.2 mg/dL (0.2 mg/dL) Urine Leukocyte Esterase Negative (NEG) Urine RBC Occ /HPF (0-2) Urine WBC 1-4 /HPF (0-4) Urine Bacteria Many /HPF (0-FEW) Urine Hyaline Casts Moderate /HPF Urine Random Sodium <60 mmol/L (Not Estab.) Ammonia 119 mcmol/L (11-34) Hemoglobin 7.4 g/dL (13.0-17.5) Hematocrit 22.4 % (39.0-53.0) Mean Corpuscular Hemoglobin Concent 33 g/dL (31-37) Laboratory Tests Test 09/20/18 03:55 Hemoglobin 7.4 g/dL (13.0-17.5) Hematocrit 22.4 % (39.0-53.0) Mean Corpuscular Hemoglobin Concent 33 g/dL (31-37) Sodium Level 133 mmol/L (136-145) Potassium Level 4.8 mmol/L (3.5-5.1) Chloride Level 100 mmol/L (98-107) Carbon Dioxide Level 19 mmol/L (21-32) Anion Gap 14 (6-14) Blood Urea Nitrogen 52 mg/dL (8-26) Creatinine 2.8 mg/dL (0.7-1.3) Estimated GFR (Cockcroft-Gault) 23.6 Glucose Level 115 mg/dL (70-99) Calcium Level 9.0 mg/dL (8.5-10.1) Medications Current Medications Ondansetron HCl (Zofran) 4 mg 1X ONCE IV Last administered on 09/15/18at 09:09 ; Start 09/15/18 at 08:45; Stop 09/15/18 at 08:46; Status DC Morphine Sulfate (Morphine Sulfate) 5 mg 1X ONCE IV Last administered on at 09:12; Start 09/15/18 at 08:45; Stop 09/15/18 at 08:46; Status DC Sodium Chloride 1,000 ml @ 1,000 mls/hr 1X ONCE IV Last administered on at 09:45; Start 09/15/18 at 09:45; Stop 09/15/18 at 10:44; Status DC Fentanyl Citrate (Fentanyl 2ml Vial) 50 mcg 1X ONCE IV Last administered on at 12:49; Start 09/15/18 at 12:45; Stop 09/15/18 at 12:46; Status DC Ondansetron HCl (Zofran) 4 mg PRN Q8HRS PRN IV NAUSEA/VOMITING; Start 09/15/18 at 13:00; Stop 09/16/18 at 07:37; Status DC Fentanyl Citrate (Fentanyl 2ml Vial) 50 mcg PRN Q1HR PRN IV PAIN Last administered on 09/16/18at 08:38; Start 09/15/18 at 13:00; Stop 09/16/18 at 12:59 ; Status DC Sodium Polystyrene Sulfonate (Kayexalate) 15 gm 1X ONCE PO ; Start 09/15/18 at 13:00; Stop 09/15/18 at 13:01; Status DC Rifaximin (Xifaxan) 550 mg Q12HR PO Last administered on 09/20/18at 07:47; Start 09/15/18 at 21:00 Tramadol HCl (Ultram) 50 mg PRN Q6HRS PRN PO PAIN Last administered on at 14:51; Start 09/15/18 at 16:15 Ondansetron HCl (Zofran) 4 mg PRN Q6HRS PRN IV NAUSEA/VOMITING; Start 09/15/18 at 16:15 Acetaminophen (Tylenol) 650 mg PRN Q6HRS PRN PO Headaches, Temp > 101.5F; Start 09/15/18 at 16:15 Lactulose (Lactulose) 20 gm PRN Q12HR PRN PO CONSTIPATION; Start 09/15/18 at 16 :15; Stop 09/19/18 at 13:36; Status DC Phytonadione (Vitamin K Ampule) 10 mg 1X ONCE SQ Last administered on at 08:37; Start 09/16/18 at 09:00; Stop 09/16/18 at 09:01; Status DC Albumin Human 100 ml @ As Directed STK-MED ONCE IV ; Start 09/16/18 at 13:15; Stop 09/16/18 at 13:16; Status DC Albumin Human 100 ml @ 100 mls/hr 1X ONCE IV Last administered on 09/16/18at 13:50; Start 09/16/18 at 13:30; Stop 09/16/18 at 14:29; Status DC Albumin Human 100 ml @ As Directed STK-MED ONCE IV ; Start 09/16/18 at 13:36; Stop 09/16/18 at 13:37; Status DC Albumin Human 100 ml @ 100 mls/hr 1X ONCE IV Last administered on 09/16/18at 13:50; Start 09/16/18 at 14:30; Stop 09/16/18 at 15:29; Status DC Pantoprazole Sodium (Protonix) 40 mg DAILYAC PO Last administered on 09/20/18at 06:27; Start 09/16/18 at 16:00 Sodium Chloride 500 ml @ 500 mls/hr 1X ONCE IV Last administered on at 16:15; Start 09/16/18 at 16:15; Stop 09/16/18 at 17:14; Status DC Morphine Sulfate (Morphine Sulfate) 2 mg PRN Q2HR PRN IV PAIN Last administered on 09/19/18at 07:48; Start 09/16/18 at 21:45; Stop 09/19/18 at 09:25 ; Status DC Furosemide (Lasix) 40 mg DAILY PO Last administered on 09/17/18at 10:46; Start 09/17/18 at 10:30; Stop 09/18/18 at 09:00; Status DC Spironolactone (Aldactone) 50 mg QODAY PO ; Start 09/18/18 at 09:00; Stop at 09:00; Status DC Albumin Human 100 ml @ 100 mls/hr TID IV Last administered on 09/20/18at 09:18 ; Start 09/18/18 at 11:00; Stop 09/20/18 at 09:59; Status DC Sodium Chloride 500 ml @ 0 mls/hr QID PRN IV UO< 30cc/hr over previous 6hrs Last administered on 09/20/18at 00:53; Start 09/18/18 at 10:45 Morphine Sulfate (Morphine Sulfate) 1 mg PRN Q2HR PRN IV PAIN Last administered on 09/20/18at 07:47; Start 09/19/18 at 09:30 Levothyroxine Sodium (Synthroid) 100 mcg DAILY06 PO Last administered on at 06:27; Start 09/19/18 at 09:30 Lactulose (Lactulose) 20 gm QID PO Last administered on 09/20/18at 07:47; Start 09/19/18 at 14:00 Active Scripts Active [Pantoprazole] 40 MG Tablet.dr 40 Mg PO DAILYAC MDD 1 Lactulose 20 Gm/30 Ml Solution 20 Gm PO PRN Q12HR PRN MDD 1 30 Days Xifaxan (Rifaximin) 550 Mg Tablet 550 Mg PO Q12HR MDD 1 Tramadol Hcl 50 Mg Tablet 50 Mg PO Q6HRS PRN 7 Days Lasix (Furosemide) 40 Mg Tablet 1 Tab PO DAILY Aldactone (Spironolactone) 25 Mg Tablet 50 Mg PO QODAY Vitals/I & O Vital Sign - Last 24 Hours 09/19/18 09/19/18 09/19/18 09/19/18 13:47 14:57 19:00 20:04 Temp 98.0 98.0 98.0 98.0 Pulse 105 103 Resp 18 18 16 18 B/P (MAP) 100/62 (75) 96/69 (78) Pulse Ox 99 99 98 O2 Delivery Room Air Room Air Room Air Room Air 09/19/18 09/19/18 09/20/18 09/20/18 20:34 23:00 00:50 01:20 Temp 98.1 98.1 Pulse 103 Resp 16 20 B/P (MAP) 97/63 (74) Pulse Ox 98 98 98 O2 Delivery Room Air Room Air O2 Flow Rate 99.0 09/20/18 09/20/18 09/20/18 09/20/18 03:00 04:20 07:00 07:47 Temp 98.5 98.3 98.5 98.3 Pulse 124 124 Resp 18 20 18 18 B/P (MAP) 111/69 (83) 109/73 (85) Pulse Ox 98 98 99 O2 Delivery Room Air Room Air Room Air Room Air 09/20/18 09/20/18 09/20/18 08:00 08:17 10:36 Temp 98.0 98.0 Pulse 118 Resp 18 18 B/P (MAP) 110/65 (80) Pulse Ox 98 O2 Delivery Room Air Room Air Room Air Intake and Output 09/19/18 09/19/18 09/20/18 15:00 23:00 07:00 Intake Total 400 ml 780 ml 1060 ml Output Total 100 ml 100 ml 180 ml Balance 300 ml 680 ml 880 ml Nutrition Consultation Dietary Evaluation: Recommendations by RD: Increase Calorie Intake Comments: Recommend continue low Na diet, honor food preferences, and provide snacks as requested Expected Outcomes/Goals: P.O. intake to meet >75% estimated nutrition needs Interpretation of weight loss: >5% in 1 month Malnutrition Findings: Body Fat Depletion (Non Severe: Mild Depletion Weight Status: Overweight ALEIDA VAUGHAN MD Sep 20, 2018 11:28
--- NOTE | 2018-09-20 13:08 | PDOC ---
Renal-Progress Notes Subjective Notes Notes NONE NEW History of Present Illness Hx of present illness NO CHANGE Vitals Vitals Vital Signs Date Time Temp Pulse Resp B/P (MAP) Pulse Ox O2 Delivery O2 Flow Rate FiO2 09/20/18 10:36 98.0 118 18 110/65 (80) 98 Room Air 98.0 09/19/18 20:34 99.0 Weight Weight [ ] I.O. Intake and Output Intake and Output 09/20/18 06:59 Intake Total 2240 ml Output Total 380 ml Balance 1860 ml Intake Oral 2040 ml IV Total 200 ml Output Urine Total 380 ml Labs Labs Laboratory Tests Test 09/20/18 03:55 Hemoglobin 7.4 g/dL (13.0-17.5) Hematocrit 22.4 % (39.0-53.0) Mean Corpuscular Hemoglobin Concent 33 g/dL (31-37) Sodium Level 133 mmol/L (136-145) Potassium Level 4.8 mmol/L (3.5-5.1) Chloride Level 100 mmol/L (98-107) Carbon Dioxide Level 19 mmol/L (21-32) Anion Gap 14 (6-14) Blood Urea Nitrogen 52 mg/dL (8-26) Creatinine 2.8 mg/dL (0.7-1.3) Estimated GFR (Cockcroft-Gault) 23.6 Glucose Level 115 mg/dL (70-99) Calcium Level 9.0 mg/dL (8.5-10.1) Review of Systems Constitutional: yes: other (CONFUSED) Physical Exam Skin: warm Respiratory: decreased breath sounds Heart: S1S2 Abdomen: soft, bowel sounds present Genitourinary: bladder flat Extremities: pulses present Neurology: confused Assessment Assessment IMP LIVER [id number] RELATED HYPONATREMIA-BETTER 121 TO 129 ANEMIA-BETTER JERROD-CR UP TO 2.8 CKD STAGE 3 WITH BASELINE CR OF 1.8-2.1 PANCYTOPENIA MALNUTRITION DECONDITIONING LE EDEMA ENCEPHALOPATHY PLAN AGREE WITH HOLDING DIURETICS BUT MAY NEED TO START SOON ALBUMIN TO RESUME FOR NOW AGREE WITH PALLIATIVE CARE EVAL LAST PARACENTESIS ON LAST WEEK WILL FOLLOW HOPEFULLY PALLIATIVE CARE CAN VISIT WITH S/O LINDA HUDDLESTON MD Sep 20, 2018 13:08
[2018-09-20 14:45] VITALS: BP 104/69
[2018-09-20 19:00] VITALS: BP 102/70
[2018-09-20] MEDS: ALBUMIN HUMAN 25% 50 ML IV SCH (22:01)
[2018-09-20 23:00] VITALS: BP 102/69
[2018-09-21] VITALS (7 sets, daily range): BP systolic 78–99; BP diastolic 51–62
[2018-09-21] MEDS: MORPHINE SULFATE 2 MG/ML VIAL. IV PRN ×3 (03:07→16:02)
[2018-09-21] MEDS: LEVOTHYROXINE 100 MCG TABLET PO SCH (06:10)
[2018-09-21] MEDS: PANTOPRAZOLE 40 MG TABLET.DR. PO SCH (06:10)
[2018-09-21] MEDS: rifAXIMin 550 MG TABLET PO SCH ×2 (09:26→23:11)
[2018-09-21] MEDS: LACTULOSE 20 GM/30 ML SOLUTION. PO SCH ×4 (09:26→23:10)
[2018-09-21] MEDS: ALBUMIN HUMAN 25% 50 ML IV SCH ×2 (09:27→23:10)
[2018-09-21 09:51] LABS: HEMATOCRIT 21.3 % (39.0-53.0); HEMOGLOBIN 7.1 g/dL (13.0-17.5)
--- NOTE | 2018-09-21 09:57 | PDOC ---
Objective: Vital Signs: Vital Signs Date Time Temp Pulse Resp B/P (MAP) Pulse Ox O2 Delivery O2 Flow Rate FiO2 09/21/18 08:08 16 Room Air 09/21/18 06:41 97.9 106 99/62 (74) 100 97.9 09/21/18 03:37 99.0 Labs: Laboratory Tests Test 09/21/18 09:25 Hemoglobin 7.1 g/dL Hematocrit 21.3 % Mean Corpuscular Hemoglobin Concent 33 g/dL URINE CULTURE Preliminary Preliminary report URINE CULTURE RES 1 Preliminary Gram negative rods PE: GEN: NAD NEURO/PSYCH: sleeping, not awakened A/P: ESLD -- ?Arnel MUHAMMAD-VALERIA LEVINE Sep 21, 2018 09:57
[2018-09-21 10:06] LABS: CALCIUM 8.7 mg/dL (8.5-10.1); GFR 21.8; POTASSIUM 5.3 mmol/L (3.5-5.1)
--- NOTE | 2018-09-21 13:05 | PDOC ---
PROGRESS NOTES Chief Complaint Chief Complaint Advanced liver cirrhosis Advanced kidney disease in the background of #1 Anemia of chronic disease Thrombocytopenia Leukopenia Hyponatremia Moderate to severe PCM Generalized weakness Chronic leg swelling and ascites Alcohol drinking, hx History of Present Illness History of Present Illness NO Change, asleep I did not awaken Got albumin from renal yesterday in an effort to help his numbers Palliative still trying to reach Patient is not willing to talk about future plans or his medical health Minimally verbal to me or at least noncooperative Full code still NOt candidate for PV shunt NO PT needs, or to say veryw eak to participate with PT Earlier entry: Not getting better Creatinine up to 2.8 from 2.4 from 2.0 GI thoughts about PV shunt by IR-but I'm being told IR will not do with worsening kidney function Confused yesterday-I have cut back on morphine and other meds Ammonia 119 and is getting lactulose, did have BM yesterday but so far none today Patient more awake today Patient is refusing to talk to me about palliative or seriousness of his disease -but I do think he knows that. Abdomen is not tense or fluid not reaccumulating yet he claims is out of state but apparently some reports that she was here yesterday Full code still per chart Plan: CPM NEed to come up with plan, still hard to call and pt not willing to talk about his situation Vitals Vitals Vital Signs Date Time Temp Pulse Resp B/P (MAP) Pulse Ox O2 Delivery O2 Flow Rate FiO2 09/21/18 11:00 97.7 111 18 84/58 (67) 98 Room Air 97.7 09/21/18 08:00 99.0 Physical Exam General: Alert, Oriented X3, Cooperative, mild distress Heart: Regular rate Lungs: Clear Abdomen: Normal bowel sounds, Soft, Other ( DISTENDED) Extremities: No clubbing, No cyanosis, Normal pulses, Other (2+ edema) Skin: Other (MULTIPLE BRUISES) Labs LABS Laboratory Tests Test 09/21/18 09:25 Hemoglobin 7.1 g/dL (13.0-17.5) Hematocrit 21.3 % (39.0-53.0) Mean Corpuscular Hemoglobin Concent 33 g/dL (31-37) Sodium Level 128 mmol/L (136-145) Potassium Level 5.3 mmol/L (3.5-5.1) Chloride Level 97 mmol/L (98-107) Carbon Dioxide Level 18 mmol/L (21-32) Anion Gap 13 (6-14) Blood Urea Nitrogen 49 mg/dL (8-26) Creatinine 3.0 mg/dL (0.7-1.3) Estimated GFR (Cockcroft-Gault) 21.8 Glucose Level 119 mg/dL (70-99) Calcium Level 8.7 mg/dL (8.5-10.1) Ammonia 121 mcmol/L (11-34) Review of Systems Review of Systems Asleep I did not awaken Assessment and Plan Assessmemt and Plan Problems Medical Problems: (1) Anemia Status: Acute (2) Ascites Status: Acute (3) Hyperkalemia Status: Acute (4) Renal failure Status: Acute Comment Review of Relevant I have reviewed the following items arlette (where applicable) has been applied. Labs Laboratory Tests Test 09/20/18 03:55 09/21/18 09:25 Hemoglobin 7.4 g/dL (13.0-17.5) 7.1 g/dL (13.0-17.5) Hematocrit 22.4 % (39.0-53.0) 21.3 % (39.0-53.0) Mean Corpuscular Hemoglobin Concent 33 g/dL (31-37) 33 g/dL (31-37) Sodium Level 133 mmol/L (136-145) 128 mmol/L (136-145) Potassium Level 4.8 mmol/L (3.5-5.1) 5.3 mmol/L (3.5-5.1) Chloride Level 100 mmol/L (98-107) 97 mmol/L (98-107) Carbon Dioxide Level 19 mmol/L (21-32) 18 mmol/L (21-32) Anion Gap 14 (6-14) 13 (6-14) Blood Urea Nitrogen 52 mg/dL (8-26) 49 mg/dL (8-26) Creatinine 2.8 mg/dL (0.7-1.3) 3.0 mg/dL (0.7-1.3) Estimated GFR (Cockcroft-Gault) 23.6 21.8 Glucose Level 115 mg/dL (70-99) 119 mg/dL (70-99) Calcium Level 9.0 mg/dL (8.5-10.1) 8.7 mg/dL (8.5-10.1) Ammonia 121 mcmol/L (11-34) Laboratory Tests Test 09/21/18 09:25 Hemoglobin 7.1 g/dL (13.0-17.5) Hematocrit 21.3 % (39.0-53.0) Mean Corpuscular Hemoglobin Concent 33 g/dL (31-37) Sodium Level 128 mmol/L (136-145) Potassium Level 5.3 mmol/L (3.5-5.1) Chloride Level 97 mmol/L (98-107) Carbon Dioxide Level 18 mmol/L (21-32) Anion Gap 13 (6-14) Blood Urea Nitrogen 49 mg/dL (8-26) Creatinine 3.0 mg/dL (0.7-1.3) Estimated GFR (Cockcroft-Gault) 21.8 Glucose Level 119 mg/dL (70-99) Calcium Level 8.7 mg/dL (8.5-10.1) Ammonia 121 mcmol/L (11-34) Microbiology 09/19/18 Urine Culture - Preliminary, Resulted 09/19/18 Urine Culture Result 1 (KENDALL) - Preliminary, Resulted Medications Current Medications Ondansetron HCl (Zofran) 4 mg 1X ONCE IV Last administered on 09/15/18at 09:09 ; Start 09/15/18 at 08:45; Stop 09/15/18 at 08:46; Status DC Morphine Sulfate (Morphine Sulfate) 5 mg 1X ONCE IV Last administered on at 09:12; Start 09/15/18 at 08:45; Stop 09/15/18 at 08:46; Status DC Sodium Chloride 1,000 ml @ 1,000 mls/hr 1X ONCE IV Last administered on at 09:45; Start 09/15/18 at 09:45; Stop 09/15/18 at 10:44; Status DC Fentanyl Citrate (Fentanyl 2ml Vial) 50 mcg 1X ONCE IV Last administered on at 12:49; Start 09/15/18 at 12:45; Stop 09/15/18 at 12:46; Status DC Ondansetron HCl (Zofran) 4 mg PRN Q8HRS PRN IV NAUSEA/VOMITING; Start 09/15/18 at 13:00; Stop 09/16/18 at 07:37; Status DC Fentanyl Citrate (Fentanyl 2ml Vial) 50 mcg PRN Q1HR PRN IV PAIN Last administered on 09/16/18at 08:38; Start 09/15/18 at 13:00; Stop 09/16/18 at 12:59 ; Status DC Sodium Polystyrene Sulfonate (Kayexalate) 15 gm 1X ONCE PO ; Start 09/15/18 at 13:00; Stop 09/15/18 at 13:01; Status DC Rifaximin (Xifaxan) 550 mg Q12HR PO Last administered on 09/21/18at 09:26; Start 09/15/18 at 21:00 Tramadol HCl (Ultram) 50 mg PRN Q6HRS PRN PO PAIN Last administered on at 14:51; Start 09/15/18 at 16:15 Ondansetron HCl (Zofran) 4 mg PRN Q6HRS PRN IV NAUSEA/VOMITING; Start 09/15/18 at 16:15 Acetaminophen (Tylenol) 650 mg PRN Q6HRS PRN PO Headaches, Temp > 101.5F; Start 09/15/18 at 16:15 Lactulose (Lactulose) 20 gm PRN Q12HR PRN PO CONSTIPATION; Start 09/15/18 at 16 :15; Stop 09/19/18 at 13:36; Status DC Phytonadione (Vitamin K Ampule) 10 mg 1X ONCE SQ Last administered on at 08:37; Start 09/16/18 at 09:00; Stop 09/16/18 at 09:01; Status DC Albumin Human 100 ml @ As Directed STK-MED ONCE IV ; Start 09/16/18 at 13:15; Stop 09/16/18 at 13:16; Status DC Albumin Human 100 ml @ 100 mls/hr 1X ONCE IV Last administered on 09/16/18at 13:50; Start 09/16/18 at 13:30; Stop 09/16/18 at 14:29; Status DC Albumin Human 100 ml @ As Directed STK-MED ONCE IV ; Start 09/16/18 at 13:36; Stop 09/16/18 at 13:37; Status DC Albumin Human 100 ml @ 100 mls/hr 1X ONCE IV Last administered on 09/16/18 13:50; Start 09/16/18 at 14:30; Stop 09/16/18 at 15:29; Status DC Pantoprazole Sodium (Protonix) 40 mg DAILYAC PO Last administered on 09/21/18 06:10; Start 09/16/18 at 16:00 Sodium Chloride 500 ml @ 500 mls/hr 1X ONCE IV Last administered on 16:15; Start 09/16/18 at 16:15; Stop 09/16/18 at 17:14; Status DC Morphine Sulfate (Morphine Sulfate) 2 mg PRN Q2HR PRN IV PAIN Last administered on 09/19/18 07:48; Start 09/16/18 at 21:45; Stop 09/19/18 at 09:25 ; Status DC Furosemide (Lasix) 40 mg DAILY PO Last administered on 09/17/18 10:46; Start 09/17/18 at 10:30; Stop 09/18/18 at 09:00; Status DC Spironolactone (Aldactone) 50 mg QODAY PO ; Start 09/18/18 at 09:00; Stop at 09:00; Status DC Albumin Human 100 ml @ 100 mls/hr TID IV Last administered on 09/20/18 09:18 ; Start 09/18/18 at 11:00; Stop 09/20/18 at 09:59; Status DC Sodium Chloride 500 ml @ 0 mls/hr QID PRN IV UO< 30cc/hr over previous 6hrs Last administered on 09/20/18 00:53; Start 09/18/18 at 10:45 Morphine Sulfate (Morphine Sulfate) 1 mg PRN Q2HR PRN IV PAIN Last administered on 09/21/18 07:43; Start 09/19/18 at 09:30 Levothyroxine Sodium (Synthroid) 100 mcg DAILY06 PO Last administered on 06:10; Start 09/19/18 at 09:30 Lactulose (Lactulose) 20 gm QID PO Last administered on 09/21/18 09:26; Start 09/19/18 at 14:00 Albumin Human 50 ml @ 50 mls/hr BID IV Last administered on 09/21/18 09:27; Start 09/20/18 at 21:00 Active Scripts Active [Pantoprazole] 40 MG Tablet.dr 40 Mg PO DAILYAC MDD 1 Lactulose 20 Gm/30 Ml Solution 20 Gm PO PRN Q12HR PRN MDD 1 30 Days Xifaxan (Rifaximin) 550 Mg Tablet 550 Mg PO Q12HR MDD 1 Tramadol Hcl 50 Mg Tablet 50 Mg PO Q6HRS PRN 7 Days Lasix (Furosemide) 40 Mg Tablet 1 Tab PO DAILY Aldactone (Spironolactone) 25 Mg Tablet 50 Mg PO QODAY Vitals/I & O Vital Sign - Last 24 Hours 09/20/18 09/20/18 09/20/18 09/20/18 14:45 16:39 19:00 20:00 Temp 98.3 98.0 98.3 98.0 Pulse 115 118 Resp 18 18 18 B/P (MAP) 104/69 (81) 102/70 (81) Pulse Ox 99 98 O2 Delivery Room Air Room Air Room Air 09/20/18 09/20/18 09/21/18 09/21/18 22:41 23:00 03:00 03:07 Temp 97.6 98.0 97.6 98.0 Pulse 111 114 Resp 18 16 18 20 B/P (MAP) 102/69 (80) 87/61 (70) Pulse Ox 98 100 99 100 O2 Delivery Room Air Room Air Room Air Room Air 09/21/18 09/21/18 09/21/18 09/21/18 03:37 06:41 07:43 08:00 Temp 97.9 97.9 Pulse 106 Resp 16 18 B/P (MAP) 99/62 (74) Pulse Ox 100 100 O2 Delivery Room Air Room Air Room Air O2 Flow Rate 99.0 99.0 09/21/18 09/21/18 08:08 11:00 Temp 97.7 97.7 Pulse 111 Resp 16 18 B/P (MAP) 84/58 (67) Pulse Ox 98 O2 Delivery Room Air Room Air Intake and Output 09/20/18 09/20/18 09/21/18 15:00 23:00 07:00 Intake Total 300 ml 300 ml 580 ml Output Total 240 ml Balance 60 ml 300 ml 580 ml Nutrition Consultation Dietary Evaluation: Recommendations by RD: Increase Calorie Intake Comments: Recommend continue low Na diet, honor food preferences, and provide snacks as requested Expected Outcomes/Goals: P.O. intake to meet >75% estimated nutrition needs Interpretation of weight loss: >5% in 1 month Malnutrition Findings: Body Fat Depletion (Non Severe: Mild Depletion Weight Status: Overweight ALEIDA VAUGHNA MD Sep 21, 2018 13:05
--- NOTE | 2018-09-21 14:47 | PDOC ---
Renal-Progress Notes Subjective Notes Notes CONFUSED History of Present Illness Hx of present illness GETTING WORSE Vitals Vitals Vital Signs Date Time Temp Pulse Resp B/P (MAP) Pulse Ox O2 Delivery O2 Flow Rate FiO2 09/21/18 14:37 97.7 111 18 92/59 (70) 98 Room Air 97.7 09/21/18 08:00 99.0 Weight Weight [ ] I.O. Intake and Output Intake and Output 09/21/18 07:00 Intake Total 1180 ml Output Total 240 ml Balance 940 ml Intake Oral 1080 ml IV Total 100 ml Output Urine Total 240 ml Labs Labs Laboratory Tests Test 09/21/18 09:25 Hemoglobin 7.1 g/dL (13.0-17.5) Hematocrit 21.3 % (39.0-53.0) Mean Corpuscular Hemoglobin Concent 33 g/dL (31-37) Sodium Level 128 mmol/L (136-145) Potassium Level 5.3 mmol/L (3.5-5.1) Chloride Level 97 mmol/L (98-107) Carbon Dioxide Level 18 mmol/L (21-32) Anion Gap 13 (6-14) Blood Urea Nitrogen 49 mg/dL (8-26) Creatinine 3.0 mg/dL (0.7-1.3) Estimated GFR (Cockcroft-Gault) 21.8 Glucose Level 119 mg/dL (70-99) Calcium Level 8.7 mg/dL (8.5-10.1) Ammonia 121 mcmol/L (11-34) Micro Micro Microbiology 09/19/18 Urine Culture - Preliminary, Resulted 09/19/18 Urine Culture Result 1 (KENDALL) - Preliminary, Resulted Review of Systems Constitutional: yes: other (CONFUSED) Physical Exam Skin: warm Respiratory: decreased breath sounds Heart: S1S2 Abdomen: soft, bowel sounds present Genitourinary: bladder flat Extremities: pulses present Neurology: confused Assessment Assessment IMP LIVER [id number] RELATED HYPONATREMIA-BETTER 121 TO 129 ANEMIA-BETTER JERROD-CR UP TO 3.0 CKD STAGE 3 WITH BASELINE CR OF 1.8-2.1 PANCYTOPENIA MALNUTRITION DECONDITIONING LE EDEMA ENCEPHALOPATHY PLAN SALINE INFUSION AGREE WITH HOLDING DIURETICS BUT MAY NEED TO START SOON ALBUMIN TO RESUME FOR NOW AGREE WITH PALLIATIVE CARE EVAL LAST PARACENTESIS ON LAST WEEK WILL FOLLOW HOPEFULLY PALLIATIVE CARE CAN VISIT WITH S/O SOON PT IS NOT A CANDIDATE FOR DIALYSIS ARAGON,LINDA S MD Sep 21, 2018 14:47
[2018-09-21] MEDS: IV NORMAL SALINE 1000ML BAG 1,000 ML IV SCH (15:54)
[2018-09-22] VITALS (7 sets, daily range): BP systolic 91–120; BP diastolic 60–82
[2018-09-22] MEDS: MORPHINE SULFATE 2 MG/ML VIAL. IV PRN ×6 (01:32→20:54)
[2018-09-22] MEDS: IV NORMAL SALINE 1000ML BAG 1,000 ML IV SCH ×3 (01:33→20:54)
[2018-09-22 05:32] LABS: CALCIUM 8.7 mg/dL (8.5-10.1); CREATININE 2.3 mg/dL (0.7-1.3); GFR 29.6; POTASSIUM 5.3 mmol/L (3.5-5.1)
[2018-09-22] MEDS: LEVOTHYROXINE 100 MCG TABLET PO SCH (06:59)
[2018-09-22] MEDS: PANTOPRAZOLE 40 MG TABLET.DR. PO SCH (06:59)
[2018-09-22] MEDS: LACTULOSE 20 GM/30 ML SOLUTION. PO SCH ×4 (09:31→20:53)
[2018-09-22] MEDS: rifAXIMin 550 MG TABLET PO SCH ×2 (09:31→20:53)
[2018-09-22] MEDS: ALBUMIN HUMAN 25% 50 ML IV SCH ×2 (09:33→20:53)
--- NOTE | 2018-09-22 10:49 | PDOC2 ---
PALLIATIVE CARE Palliative Care Note Palliative Care Met briefly with patient. States his abdominal pain is improved after pain medication. Refused other conversation. States he wanted to be left alone so that he could eat his breakfast. Will continue to be available for conversation as needed/allowed. NYA VIVEROS Sep 22, 2018 10:49
--- NOTE | 2018-09-22 11:59 | PDOC3 ---
Discharge Summary Visit Information Date of Admission: Sep 15, 2018 Date of Discharge: Sep 22, 2018 Admitting Diagnosis Comment: Advanced liver cirrhosis Advanced kidney disease in the background of #1 Anemia of chronic disease Thrombocytopenia Leukopenia Hyponatremia Moderate to severe PCM Generalized weakness Chronic leg swelling and ascites Alcohol drinking, hx Final Diagnosis Problems Medical Problems: (1) Anemia Status: Acute (2) Ascites Status: Acute (3) Hyperkalemia Status: Acute (4) Renal failure Status: Acute Brief Hospital Course Allergies Allergies Coded Allergies Type Severity Reaction Last Updated Verified Penicillins Allergy Severe ANPHYLAXIS 05/30/18 Yes trovafloxacin Allergy Severe Anaphylaxis 05/30/18 Yes Influenza Virus Vaccines Allergy Intermediate 06/16/18 Yes Vital Signs Vital Signs Date Time Temp Pulse Resp B/P (MAP) Pulse Ox O2 Delivery O2 Flow Rate FiO2 09/22/18 11:00 98.0 120 20 120/82 (95) 99 Room Air 98.0 09/22/18 06:59 99.0 Lab Results Laboratory Tests Test 09/21/18 09:25 09/22/18 04:15 Hemoglobin 7.1 g/dL (13.0-17.5) Hematocrit 21.3 % (39.0-53.0) Mean Corpuscular Hemoglobin Concent 33 g/dL (31-37) Sodium Level 128 mmol/L (136-145) 133 mmol/L (136-145) Potassium Level 5.3 mmol/L (3.5-5.1) 5.3 mmol/L (3.5-5.1) Chloride Level 97 mmol/L (98-107) 101 mmol/L (98-107) Carbon Dioxide Level 18 mmol/L (21-32) 18 mmol/L (21-32) Anion Gap 13 (6-14) 14 (6-14) Blood Urea Nitrogen 49 mg/dL (8-26) 41 mg/dL (8-26) Creatinine 3.0 mg/dL (0.7-1.3) 2.3 mg/dL (0.7-1.3) Estimated GFR (Cockcroft-Gault) 21.8 29.6 Glucose Level 119 mg/dL (70-99) 105 mg/dL (70-99) Calcium Level 8.7 mg/dL (8.5-10.1) 8.7 mg/dL (8.5-10.1) Ammonia 121 mcmol/L (11-34) Laboratory Tests Test 09/22/18 04:15 Sodium Level 133 mmol/L (136-145) Potassium Level 5.3 mmol/L (3.5-5.1) Chloride Level 101 mmol/L (98-107) Carbon Dioxide Level 18 mmol/L (21-32) Anion Gap 14 (6-14) Blood Urea Nitrogen 41 mg/dL (8-26) Creatinine 2.3 mg/dL (0.7-1.3) Estimated GFR (Cockcroft-Gault) 29.6 Glucose Level 105 mg/dL (70-99) Calcium Level 8.7 mg/dL (8.5-10.1) Brief Hospital Course Mr. Thompson is a 58 old advanced liver cirrhosis always gets paracentesis every month or maybe even more frequently comes in because of 8 L paracentesis in this time more renal failure but he's not a dialysis candidate. I consulted palliative and is known to positive care team but he clearly is in depression or denial. He refuses to talk to me or PCP. Defers to the that we have trouble reaching the . I did discuss with the mother Josiane. She knows how sick he is. He has thrombocytopenia, easy bruising very frail skin. Creatinine 2.3-2.4 range and would have urine output after fluid bolus. He is on diuretic Lasix once a day and Aldactone every other day we have been holding because of renal failure. But in some point he will need to be back on it because he gets fluid overloaded easy. He follows with [facility]. He has an appointment on October 12. I discussed heavily with the mother over the phone, she lives 150 miles away. Lactulose and PPI are the new Rx on chart His K is 5.3, it will come down with lactulose. Overall prognosis poor, actually hospice candidate but he refuses to talk about that Discussed with renal Consults performed IR, renal Procedures performed 8 L paracentesis then albumin afterwards DC time 45 minutes cumulative Discharge Information Condition at Discharge: Improved, Stable Disposition/Orders: D/C to Home Scheduled Furosemide (Lasix) 40 Mg Tablet, 1 TAB PO DAILY for ascites, #30 Ref 1 Prescribed by: AAMIR GREER on 08/20/18 0953 Last Taken: 40 mg on 09/15/18 Last Action: Continued on 09/17/18 1024 by ALEIDA VAUGHAN Rifaximin (Xifaxan) 550 Mg Tablet, 550 MG PO Q12HR for liver function MDD 1, # 60 Ref 1 Prescribed by: ALEIDA VAUGHAN on 09/18/18 0901 Spironolactone (Aldactone) 25 Mg Tablet, 50 MG PO QODAY for ascites, #30 Prescribed by: AAMIR GREER on 08/20/18 0953 Last Taken: 50 mg on 09/15/18 Last Action: Converted on 09/17/18 1024 by ALEIDA VAUGHAN [Pantoprazole] 40 MG TABLET.DR, 40 MG PO DAILYAC for gerd MDD 1, #30 Prescribed by: ALEIDA VAUGHAN on 09/18/18 0901 Scheduled PRN Lactulose (Lactulose) 20 Gm/30 Ml Solution, 20 GM PO PRN Q12HR PRN for CONSTIPATION MDD 1 for 30 Days Prescribed by: ALEIDA VAUGHAN on 09/18/18 0901 Tramadol Hcl (Tramadol Hcl) 50 Mg Tablet, 50 MG PO Q6HRS PRN for PAIN for 7 Days , #28 Prescribed by: AAMIR GREER on 09/09/18 1138 Last Taken: 50 mg on 09/14/18 Last Action: Continued on 09/15/18 1609 by MD CLEMENT PITT CHERRIE Y MD Sep 22, 2018 11:59
--- NOTE | 2018-09-22 12:10 | PDOC ---
Subjective: Subjective: Says he's going to get a liver transplant at on October 12. Objective: Objective: Has discharge orders. Reviewed PC note. Vital Signs: Vital Signs Date Time Temp Pulse Resp B/P (MAP) Pulse Ox O2 Delivery O2 Flow Rate FiO2 09/22/18 11:00 98.0 120 20 120/82 (95) 99 Room Air 98.0 09/22/18 06:59 99.0 Labs: Laboratory Tests Test 09/22/18 04:15 Sodium Level 133 mmol/L Potassium Level 5.3 mmol/L Chloride Level 101 mmol/L Carbon Dioxide Level 18 mmol/L Anion Gap 14 Blood Urea Nitrogen 41 mg/dL Creatinine 2.3 mg/dL Estimated GFR (Cockcroft-Gault) 29.6 Glucose Level 105 mg/dL Calcium Level 8.7 mg/dL PE: GEN: NAD - holding a pair of scissors - says he just opened a lot of salsa packets NEURO/PSYCH: not talkative, probably confused A/P: ESLD, recurrent ascites -- Refuses palliative discussion. Discussion of consideration for PleurX, now has DC orders. VALERIA ALCOCER Sep 22, 2018 12:10
--- NOTE | 2018-09-22 12:12 | PDOC ---
Renal-Progress Notes Subjective Notes Notes NONE History of Present Illness Hx of present illness NO CHANGE Vitals Vitals Vital Signs Date Time Temp Pulse Resp B/P (MAP) Pulse Ox O2 Delivery O2 Flow Rate FiO2 09/22/18 11:00 98.0 120 20 120/82 (95) 99 Room Air 98.0 09/22/18 06:59 99.0 Weight Weight [ ] I.O. Intake and Output Intake and Output 09/22/18 07:00 Intake Total 170 ml Output Total 500 ml Balance -330 ml Intake Oral 170 ml Output Urine Total 500 ml # Voids 2 Labs Labs Laboratory Tests Test 09/22/18 04:15 Sodium Level 133 mmol/L (136-145) Potassium Level 5.3 mmol/L (3.5-5.1) Chloride Level 101 mmol/L (98-107) Carbon Dioxide Level 18 mmol/L (21-32) Anion Gap 14 (6-14) Blood Urea Nitrogen 41 mg/dL (8-26) Creatinine 2.3 mg/dL (0.7-1.3) Estimated GFR (Cockcroft-Gault) 29.6 Glucose Level 105 mg/dL (70-99) Calcium Level 8.7 mg/dL (8.5-10.1) Micro Micro Microbiology 09/19/18 Urine Culture - Final, Complete 09/19/18 Urine Culture Result 1 (KENDALL) - Final, Complete 09/19/18 Antimicrobic Susceptibility - Final, Complete Review of Systems Constitutional: yes: other (CONFUSED) Physical Exam Skin: warm Respiratory: decreased breath sounds Heart: S1S2 Abdomen: soft, bowel sounds present Genitourinary: bladder flat Extremities: pulses present Neurology: confused Assessment Assessment IMP LIVER [id number] RELATED HYPONATREMIA-BETTER 121 TO 129 ANEMIA-BETTER JERROD-CR BETTER AT 2.3 CKD STAGE 3 WITH BASELINE CR OF 1.8-2.1 PANCYTOPENIA MALNUTRITION DECONDITIONING LE EDEMA ENCEPHALOPATHY PLAN D/W ATTENDING AFTER D/W FAMILY PLAN IS TO D/C PT HOME TODAY LINDA ARAGON MD Sep 22, 2018 12:12
--- NOTE | 2018-09-22 16:15 | NUR ---
Wound Care Wound care follow up. Pt has multiple superficial skin tears on BUE. Pt refused assessment of right arm as it had been change by RN earlier today. Left arm wounds were cleansed and redressed with xeroform gauze, gauze pad, Kerlix and stockinette. Pt needs to avoid tape to skin as much as possible. Pt declined full skin inspection. WC will continue to follow for possible changes.
[2018-09-23] VITALS (13 sets, daily range): BP systolic 88–114; BP diastolic 42–71
[2018-09-23] MEDS: MORPHINE SULFATE 2 MG/ML VIAL. IV PRN ×5 (00:16→21:14)
[2018-09-23] MEDS: LEVOTHYROXINE 100 MCG TABLET PO SCH (06:06)
[2018-09-23 06:40] LABS: HEMATOCRIT 19.4 % (39.0-53.0); HEMOGLOBIN 6.6 g/dL (13.0-17.5)
[2018-09-23 06:42] LABS: CALCIUM 8.3 mg/dL (8.5-10.1); CREATININE 2.1 mg/dL (0.7-1.3); GFR 32.8; POTASSIUM 4.7 mmol/L (3.5-5.1)
[2018-09-23] MEDS: PANTOPRAZOLE 40 MG TABLET.DR. PO SCH (07:38)
[2018-09-23] MEDS: rifAXIMin 550 MG TABLET PO SCH ×2 (08:59→21:00)
[2018-09-23] MEDS: LACTULOSE 20 GM/30 ML SOLUTION. PO SCH ×4 (08:59→21:00)
[2018-09-23] MEDS: ALBUMIN HUMAN 25% 50 ML IV SCH ×2 (09:00→21:01)
--- NOTE | 2018-09-23 10:30 | NUR ---
Blood transfusion began and RN with IR took patient down for paracentesis. They took responsibility for first set of vital signs at 15minutes. Will await patient return.
[2018-09-23] MEDS ORDERED: ALBUMIN HUMAN 25% 50 ML IV ONE (11:15)
--- NOTE | 2018-09-23 11:57 | PDOC ---
Renal-Progress Notes Subjective Notes Notes CONFUSED History of Present Illness Hx of present illness NO CHANGE Vitals Vitals Vital Signs Date Time Temp Pulse Resp B/P (MAP) Pulse Ox O2 Delivery O2 Flow Rate FiO2 09/23/18 11:17 97.6 106 16 97/57 97.6 09/23/18 10:42 99 Room Air 09/22/18 08:00 99.0 Weight Weight [ ] I.O. Intake and Output Intake and Output 09/23/18 07:00 Intake Total 1800 ml Output Total 1000 ml Balance 800 ml Intake Oral 750 ml IV Total 1050 ml Output Urine Total 1000 ml Labs Labs Laboratory Tests Test 09/23/18 05:35 Hemoglobin 6.6 g/dL (13.0-17.5) Hematocrit 19.4 % (39.0-53.0) Mean Corpuscular Hemoglobin Concent 34 g/dL (31-37) Sodium Level 130 mmol/L (136-145) Potassium Level 4.7 mmol/L (3.5-5.1) Chloride Level 99 mmol/L (98-107) Carbon Dioxide Level 17 mmol/L (21-32) Anion Gap 14 (6-14) Blood Urea Nitrogen 34 mg/dL (8-26) Creatinine 2.1 mg/dL (0.7-1.3) Estimated GFR (Cockcroft-Gault) 32.8 Glucose Level 123 mg/dL (70-99) Calcium Level 8.3 mg/dL (8.5-10.1) Micro Micro Microbiology 09/19/18 Urine Culture - Final, Complete 09/19/18 Urine Culture Result 1 (KENDALL) - Final, Complete 09/19/18 Antimicrobic Susceptibility - Final, Complete Review of Systems Constitutional: yes: other (CONFUSED) Physical Exam Skin: warm Respiratory: decreased breath sounds Heart: S1S2 Abdomen: soft, bowel sounds present Genitourinary: bladder flat Extremities: pulses present Neurology: confused Assessment Assessment IMP LIVER [id number] RELATED HYPONATREMIA-BETTER 121 TO 129 ANEMIA-BETTER JERROD-RESOLVED WITH CR AT 2.1 CKD STAGE 3 WITH BASELINE CR OF 1.8-2.1 PANCYTOPENIA MALNUTRITION DECONDITIONING LE EDEMA ENCEPHALOPATHY PLAN D/W ATTENDING PARACENTESIS AND PRBC TODAY PT NOT A CANDIDATE FOR DIALYSIS LINDA ARAGON MD Sep 23, 2018 11:57
--- NOTE | 2018-09-23 12:12 | PDOC ---
PROGRESS NOTES Chief Complaint Chief Complaint Advanced liver cirrhosis Advanced kidney disease in the background of #1 Anemia of chronic disease Thrombocytopenia Leukopenia Hyponatremia Moderate to severe PCM Generalized weakness Chronic leg swelling and ascites Alcohol drinking, hx Acute precipitous drop in hemoglobin, hemoglobin 6.6, 09/23/18 History of Present Illness History of Present Illness Refused to go home yesterday because he wanted to get paracentesis before he leaves Hemoglobin is 6.6 and getting blood transfusion He does not talk to me I have updated mother yesterday Overall prognosis guarded Plan: keep his appointment [facility] on October 12 Transfuse packed RBC Repeat hemoglobin and BMP tomorrow Not a candidate for dialysis IR paracentesis Might need albumin post paracentesis - as is usually large volume Discussed with renal Vitals Vitals Vital Signs Date Time Temp Pulse Resp B/P (MAP) Pulse Ox O2 Delivery O2 Flow Rate FiO2 09/23/18 11:17 97.6 106 16 97/57 97.6 09/23/18 10:42 99 Room Air 09/22/18 08:00 99.0 Physical Exam General: Alert, Oriented X3, Cooperative, mild distress Heart: Regular rate Lungs: Clear Abdomen: Normal bowel sounds, Soft, Other ( DISTENDED) Extremities: No clubbing, No cyanosis, Normal pulses, Other (2+ edema) Skin: Other (MULTIPLE BRUISES) Labs LABS Laboratory Tests Test 09/23/18 05:35 Hemoglobin 6.6 g/dL (13.0-17.5) Hematocrit 19.4 % (39.0-53.0) Mean Corpuscular Hemoglobin Concent 34 g/dL (31-37) Sodium Level 130 mmol/L (136-145) Potassium Level 4.7 mmol/L (3.5-5.1) Chloride Level 99 mmol/L (98-107) Carbon Dioxide Level 17 mmol/L (21-32) Anion Gap 14 (6-14) Blood Urea Nitrogen 34 mg/dL (8-26) Creatinine 2.1 mg/dL (0.7-1.3) Estimated GFR (Cockcroft-Gault) 32.8 Glucose Level 123 mg/dL (70-99) Calcium Level 8.3 mg/dL (8.5-10.1) Review of Systems Review of Systems Refuses to talk to me hence limited ROS Assessment and Plan Assessmemt and Plan Problems Medical Problems: (1) Anemia Status: Acute (2) Ascites Status: Acute (3) Hyperkalemia Status: Acute (4) Renal failure Status: Acute Comment Review of Relevant I have reviewed the following items arlette (where applicable) has been applied. Labs Laboratory Tests Test 09/22/18 04:15 09/23/18 05:35 Sodium Level 133 mmol/L (136-145) 130 mmol/L (136-145) Potassium Level 5.3 mmol/L (3.5-5.1) 4.7 mmol/L (3.5-5.1) Chloride Level 101 mmol/L (98-107) 99 mmol/L (98-107) Carbon Dioxide Level 18 mmol/L (21-32) 17 mmol/L (21-32) Anion Gap 14 (6-14) 14 (6-14) Blood Urea Nitrogen 41 mg/dL (8-26) 34 mg/dL (8-26) Creatinine 2.3 mg/dL (0.7-1.3) 2.1 mg/dL (0.7-1.3) Estimated GFR (Cockcroft-Gault) 29.6 32.8 Glucose Level 105 mg/dL (70-99) 123 mg/dL (70-99) Calcium Level 8.7 mg/dL (8.5-10.1) 8.3 mg/dL (8.5-10.1) Hemoglobin 6.6 g/dL (13.0-17.5) Hematocrit 19.4 % (39.0-53.0) Mean Corpuscular Hemoglobin Concent 34 g/dL (31-37) Laboratory Tests Test 09/23/18 05:35 Hemoglobin 6.6 g/dL (13.0-17.5) Hematocrit 19.4 % (39.0-53.0) Mean Corpuscular Hemoglobin Concent 34 g/dL (31-37) Sodium Level 130 mmol/L (136-145) Potassium Level 4.7 mmol/L (3.5-5.1) Chloride Level 99 mmol/L (98-107) Carbon Dioxide Level 17 mmol/L (21-32) Anion Gap 14 (6-14) Blood Urea Nitrogen 34 mg/dL (8-26) Creatinine 2.1 mg/dL (0.7-1.3) Estimated GFR (Cockcroft-Gault) 32.8 Glucose Level 123 mg/dL (70-99) Calcium Level 8.3 mg/dL (8.5-10.1) Microbiology 09/19/18 Urine Culture - Final, Complete 09/19/18 Urine Culture Result 1 (KENDALL) - Final, Complete 09/19/18 Antimicrobic Susceptibility - Final, Complete Medications Current Medications Ondansetron HCl (Zofran) 4 mg 1X ONCE IV Last administered on 09/15/18at 09:09 ; Start 09/15/18 at 08:45; Stop 09/15/18 at 08:46; Status DC Morphine Sulfate (Morphine Sulfate) 5 mg 1X ONCE IV Last administered on at 09:12; Start 09/15/18 at 08:45; Stop 09/15/18 at 08:46; Status DC Sodium Chloride 1,000 ml @ 1,000 mls/hr 1X ONCE IV Last administered on at 09:45; Start 09/15/18 at 09:45; Stop 09/15/18 at 10:44; Status DC Fentanyl Citrate (Fentanyl 2ml Vial) 50 mcg 1X ONCE IV Last administered on at 12:49; Start 09/15/18 at 12:45; Stop 09/15/18 at 12:46; Status DC Ondansetron HCl (Zofran) 4 mg PRN Q8HRS PRN IV NAUSEA/VOMITING; Start 09/15/18 at 13:00; Stop 09/16/18 at 07:37; Status DC Fentanyl Citrate (Fentanyl 2ml Vial) 50 mcg PRN Q1HR PRN IV PAIN Last administered on 09/16/18at 08:38; Start 09/15/18 at 13:00; Stop 09/16/18 at 12:59 ; Status DC Sodium Polystyrene Sulfonate (Kayexalate) 15 gm 1X ONCE PO ; Start 09/15/18 at 13:00; Stop 09/15/18 at 13:01; Status DC Rifaximin (Xifaxan) 550 mg Q12HR PO Last administered on 09/23/18at 08:59; Start 09/15/18 at 21:00 Tramadol HCl (Ultram) 50 mg PRN Q6HRS PRN PO PAIN Last administered on at 14:51; Start 09/15/18 at 16:15 Ondansetron HCl (Zofran) 4 mg PRN Q6HRS PRN IV NAUSEA/VOMITING; Start 09/15/18 at 16:15 Acetaminophen (Tylenol) 650 mg PRN Q6HRS PRN PO Headaches, Temp > 101.5F; Start 09/15/18 at 16:15 Lactulose (Lactulose) 20 gm PRN Q12HR PRN PO CONSTIPATION; Start 09/15/18 at 16 :15; Stop 09/19/18 at 13:36; Status DC Phytonadione (Vitamin K Ampule) 10 mg 1X ONCE SQ Last administered on at 08:37; Start 09/16/18 at 09:00; Stop 09/16/18 at 09:01; Status DC Albumin Human 100 ml @ As Directed STK-MED ONCE IV ; Start 09/16/18 at 13:15; Stop 09/16/18 at 13:16; Status DC Albumin Human 100 ml @ 100 mls/hr 1X ONCE IV Last administered on 09/16/18at 13:50; Start 09/16/18 at 13:30; Stop 09/16/18 at 14:29; Status DC Albumin Human 100 ml @ As Directed STK-MED ONCE IV ; Start 09/16/18 at 13:36; Stop 09/16/18 at 13:37; Status DC Albumin Human 100 ml @ 100 mls/hr 1X ONCE IV Last administered on 09/16/18at 13:50; Start 09/16/18 at 14:30; Stop 09/16/18 at 15:29; Status DC Pantoprazole Sodium (Protonix) 40 mg DAILYAC PO Last administered on 09/23/18at 07:38; Start 09/16/18 at 16:00 Sodium Chloride 500 ml @ 500 mls/hr 1X ONCE IV Last administered on at 16:15; Start 09/16/18 at 16:15; Stop 09/16/18 at 17:14; Status DC Morphine Sulfate (Morphine Sulfate) 2 mg PRN Q2HR PRN IV PAIN Last administered on 09/19/18at 07:48; Start 09/16/18 at 21:45; Stop 09/19/18 at 09:25 ; Status DC Furosemide (Lasix) 40 mg DAILY PO Last administered on 09/17/18at 10:46; Start 09/17/18 at 10:30; Stop 09/18/18 at 09:00; Status DC Spironolactone (Aldactone) 50 mg QODAY PO ; Start 09/18/18 at 09:00; Stop at 09:00; Status DC Albumin Human 100 ml @ 100 mls/hr TID IV Last administered on 09/20/18at 09:18 ; Start 09/18/18 at 11:00; Stop 09/20/18 at 09:59; Status DC Sodium Chloride 500 ml @ 0 mls/hr QID PRN IV UO< 30cc/hr over previous 6hrs Last administered on 09/20/18at 00:53; Start 09/18/18 at 10:45 Morphine Sulfate (Morphine Sulfate) 1 mg PRN Q2HR PRN IV PAIN Last administered on 09/23/18at 06:06; Start 09/19/18 at 09:30 Levothyroxine Sodium (Synthroid) 100 mcg DAILY06 PO Last administered on at 06:06; Start 09/19/18 at 09:30 Lactulose (Lactulose) 20 gm QID PO Last administered on 09/23/18at 08:59; Start 09/19/18 at 14:00 Albumin Human 50 ml @ 50 mls/hr BID IV Last administered on 09/23/18at 09:00; Start 09/20/18 at 21:00 Sodium Chloride 1,000 ml @ 100 mls/hr Q10H IV Last administered on 09/22/18at 20:54; Start 09/21/18 at 15:00 Albumin Human 50 ml @ 50 mls/hr 1X ONCE IV ; Start 09/23/18 at 11:15; Stop at 12:14 Active Scripts Active [Pantoprazole] 40 MG Tablet.dr 40 Mg PO DAILYAC MDD 1 Lactulose 20 Gm/30 Ml Solution 20 Gm PO PRN Q12HR PRN MDD 1 30 Days Xifaxan (Rifaximin) 550 Mg Tablet 550 Mg PO Q12HR MDD 1 Tramadol Hcl 50 Mg Tablet 50 Mg PO Q6HRS PRN 7 Days Lasix (Furosemide) 40 Mg Tablet 1 Tab PO DAILY Aldactone (Spironolactone) 25 Mg Tablet 50 Mg PO QODAY Vitals/I & O Vital Sign - Last 24 Hours 09/22/18 09/22/18 09/22/18 09/22/18 13:42 15:00 17:16 17:32 Temp 98.0 98.0 Pulse 120 Resp 16 20 18 16 B/P (MAP) 110/80 (90) Pulse Ox 98 O2 Delivery Room Air Room Air Room Air 09/22/18 09/22/18 09/22/18 09/22/18 19:00 19:30 20:54 23:00 Temp 98.3 98.0 98.3 98.0 Pulse 116 111 Resp 16 18 B/P (MAP) 119/81 (94) 118/75 (89) Pulse Ox 100 O2 Delivery Room Air Room Air Room Air Room Air 09/23/18 09/23/18 09/23/18 09/23/18 00:16 03:00 03:24 06:06 Temp 97.6 97.6 Pulse 108 Resp 16 B/P (MAP) 88/57 (67) Pulse Ox 99 O2 Delivery Room Air Room Air Room Air Room Air 09/23/18 09/23/18 09/23/18 09/23/18 07:00 07:09 07:35 10:25 Temp 98.3 98.0 98.3 98.0 Pulse 108 115 Resp 14 16 B/P (MAP) 101/61 (74) 105/71 Pulse Ox 98 O2 Delivery Room Air Room Air Room Air 09/23/18 09/23/18 09/23/18 09/23/18 10:32 10:42 11:00 11:17 Temp 98.3 97.6 98.3 97.6 Pulse 88 109 101 106 Resp 12 12 12 16 B/P (MAP) 114/42 114/70 (85) 96/64 97/57 Pulse Ox 99 O2 Delivery Room Air Intake and Output 09/22/18 09/22/18 09/23/18 15:00 23:00 07:00 Intake Total 450 ml 1350 ml Output Total 250 ml 500 ml 250 ml Balance 200 ml 850 ml -250 ml Nutrition Consultation Dietary Evaluation: Recommendations by RD: Increase Calorie Intake Comments: Recommend continue low Na diet, honor food preferences, and provide snacks as requested limit high K and phos foods due to elevated Bun and Cr encourage nepro supplements Expected Outcomes/Goals: P.O. intake to meet >75% estimated nutrition needs - not met, goal ongoing Interpretation of weight loss: >5% in 1 month Malnutrition Findings: Body Fat Depletion (Non Severe: Mild Depletion Weight Status: Overweight ALEIDA VAUGHAN MD Sep 23, 2018 12:12
--- NOTE | 2018-09-23 12:45 | PDOC ---
Objective: Objective: Reviewed w/ RN - DC held for paracentesis, now transfusing. Vital Signs: Vital Signs Date Time Temp Pulse Resp B/P (MAP) Pulse Ox O2 Delivery O2 Flow Rate FiO2 09/23/18 12:22 98.0 103 12 89/48 98.0 09/23/18 10:42 99 Room Air 09/22/18 08:00 99.0 Labs: Laboratory Tests Test 09/23/18 05:35 Hemoglobin 6.6 g/dL Hematocrit 19.4 % Mean Corpuscular Hemoglobin Concent 34 g/dL Sodium Level 130 mmol/L Potassium Level 4.7 mmol/L Chloride Level 99 mmol/L Carbon Dioxide Level 17 mmol/L Anion Gap 14 Blood Urea Nitrogen 34 mg/dL Creatinine 2.1 mg/dL Estimated GFR (Cockcroft-Gault) 32.8 Glucose Level 123 mg/dL Calcium Level 8.3 mg/dL Imaging: Paracentesis 09/23 pending PE: GEN: NAD NEURO/PSYCH: sleeping, not awakened A/P: ESLD, recurrent ascites -- DC per primary. VALERIA ALCOCER Sep 23, 2018 12:45
[2018-09-23] MEDS: IV NORMAL SALINE 1000ML BAG 1,000 ML IV SCH ×2 (13:03→17:00)
--- NOTE | 2018-09-23 13:55 | RAD ---
Ultrasound-guided paracentesis 09/23/2018 1:51 PM Procedure: The risks and benefits of the procedure were discussed the patient. Informed consent was obtained. A timeout procedure was performed. Sonographic evaluation of the abdomen was performed demonstrating ascites . The left lower quadrant was prepped and draped using maximum sterile barrier technique. 1% lidocaine without epinephrine was administered for local anesthesia. Real-time ultrasonographic guidance was used in passing a 5 Malay Yueh catheter into the fluid collection. 6 L of serous ascites was removed. The catheter was removed and pressure held to achieve hemostasis. A sterile dressing was applied. Impression: Successful ultrasound-guided paracentesis
[2018-09-23] MEDS ORDERED: CIPROFLOXACIN HCL 250 MG TABLET. PO SCH (21:00)
[2018-09-24] MEDS: MORPHINE SULFATE 2 MG/ML VIAL. IV PRN (00:55)
[2018-09-24] MEDS: IV NORMAL SALINE 1000ML BAG 1,000 ML IV SCH (00:55)
[2018-09-24 03:00] VITALS: BP 99/65
[2018-09-24 04:58] LABS: BASO % 1 % (0-3); EOS # 0.1 x10^3/uL (0.0-0.7); EOS % 4 % (0-3); HEMATOCRIT 22.3 % (39.0-53.0); HEMOGLOBIN 7.4 g/dL (13.0-17.5); LYMPH % 30 % (24-48); MEAN CORPUSCULAR HEMOGLOBIN 29 pg (25-35); MEAN CORPUSCULAR HGB CONC 33 g/dL (31-37); MEAN CORPUSCULAR VOLUME 88 fL (79-100); MONO # 0.3 x10^3/uL (0.0-1.1); MONO % 10 % (0-9); NEUT # 1.8 x10^3uL (1.8-7.7); NEUT % 54 % (31-73); PLATELET COUNT 110 x10^3/uL (140-400); RED BLOOD COUNT 2.53 x10^6/uL (4.30-5.70); RED CELL DISTRIBUTION WIDTH 16.6 % (11.5-14.5); WHITE BLOOD COUNT 3.3 x10^3/uL (4.0-11.0)
[2018-09-24 05:38] LABS: CALCIUM 8.2 mg/dL (8.5-10.1); CREATININE 1.8 mg/dL (0.7-1.3); GFR 39.2
[2018-09-24 05:43] LABS: POTASSIUM 5.2 mmol/L (3.5-5.1)
[2018-09-24] MEDS: LEVOTHYROXINE 100 MCG TABLET PO SCH (06:14)
[2018-09-24 07:00] VITALS: BP 113/72
[2018-09-24] MEDS: ALBUMIN HUMAN 25% 50 ML IV SCH (07:52)
[2018-09-24] MEDS: rifAXIMin 550 MG TABLET PO SCH (07:52)
[2018-09-24] MEDS: LACTULOSE 20 GM/30 ML SOLUTION. PO SCH (07:52)
[2018-09-24] MEDS: PANTOPRAZOLE 40 MG TABLET.DR. PO SCH (07:52)
--- NOTE | 2018-09-24 09:30 | PDOC3 ---
Discharge Summary Visit Information Date of Admission: Sep 15, 2018 Date of Discharge: Sep 24, 2018 Admitting Diagnosis Comment: Advanced liver cirrhosis Advanced kidney disease in the background of #1 Anemia of chronic disease Thrombocytopenia Leukopenia Hyponatremia Moderate to severe PCM Generalized weakness Chronic leg swelling and ascites Alcohol drinking, hx Acute precipitous drop in hemoglobin, hemoglobin 6.6, 09/23/18 Final Diagnosis Problems Medical Problems: (1) Anemia Status: Acute (2) Ascites Status: Acute (3) Hyperkalemia Status: Acute (4) Renal failure Status: Acute Brief Hospital Course Allergies Allergies Coded Allergies Type Severity Reaction Last Updated Verified Penicillins Allergy Severe ANPHYLAXIS 05/30/18 Yes trovafloxacin Allergy Severe Anaphylaxis 05/30/18 Yes Influenza Virus Vaccines Allergy Intermediate 06/16/18 Yes Vital Signs Vital Signs Date Time Temp Pulse Resp B/P (MAP) Pulse Ox O2 Delivery O2 Flow Rate FiO2 09/24/18 08:00 Room Air 09/24/18 07:00 99.1 116 16 113/72 (86) 99 99.1 Lab Results Laboratory Tests Test 09/23/18 05:35 09/24/18 04:20 09/24/18 04:25 Hemoglobin 6.6 g/dL (13.0-17.5) 7.4 g/dL (13.0-17.5) Hematocrit 19.4 % (39.0-53.0) 22.3 % (39.0-53.0) Mean Corpuscular Hemoglobin Concent 34 g/dL (31-37) 33 g/dL (31-37) Sodium Level 130 mmol/L (136-145) 130 mmol/L (136-145) Potassium Level 4.7 mmol/L (3.5-5.1) 5.2 mmol/L (3.5-5.1) Chloride Level 99 mmol/L (98-107) 101 mmol/L (98-107) Carbon Dioxide Level 17 mmol/L (21-32) 17 mmol/L (21-32) Anion Gap 14 (6-14) 12 (6-14) Blood Urea Nitrogen 34 mg/dL (8-26) 28 mg/dL (8-26) Creatinine 2.1 mg/dL (0.7-1.3) 1.8 mg/dL (0.7-1.3) Estimated GFR (Cockcroft-Gault) 32.8 39.2 Glucose Level 123 mg/dL (70-99) 78 mg/dL (70-99) Calcium Level 8.3 mg/dL (8.5-10.1) 8.2 mg/dL (8.5-10.1) White Blood Count 3.3 x10^3/uL (4.0-11.0) Red Blood Count 2.53 x10^6/uL (4.30-5.70) Mean Corpuscular Volume 88 fL (79-100) Mean Corpuscular Hemoglobin 29 pg (25-35) Red Cell Distribution Width 16.6 % (11.5-14.5) Platelet Count 110 x10^3/uL (140-400) Neutrophils (%) (Auto) 54 % (31-73) Lymphocytes (%) (Auto) 30 % (24-48) Monocytes (%) (Auto) 10 % (0-9) Eosinophils (%) (Auto) 4 % (0-3) Basophils (%) (Auto) 1 % (0-3) Neutrophils # (Auto) 1.8 x10^3uL (1.8-7.7) Lymphocytes # (Auto) 1.0 x10^3/uL (1.0-4.8) Monocytes # (Auto) 0.3 x10^3/uL (0.0-1.1) Eosinophils # (Auto) 0.1 x10^3/uL (0.0-0.7) Basophils # (Auto) 0.0 x10^3/uL (0.0-0.2) Laboratory Tests Test 09/24/18 04:20 09/24/18 04:25 White Blood Count 3.3 x10^3/uL (4.0-11.0) Red Blood Count 2.53 x10^6/uL (4.30-5.70) Hemoglobin 7.4 g/dL (13.0-17.5) Hematocrit 22.3 % (39.0-53.0) Mean Corpuscular Volume 88 fL (79-100) Mean Corpuscular Hemoglobin 29 pg (25-35) Mean Corpuscular Hemoglobin Concent 33 g/dL (31-37) Red Cell Distribution Width 16.6 % (11.5-14.5) Platelet Count 110 x10^3/uL (140-400) Neutrophils (%) (Auto) 54 % (31-73) Lymphocytes (%) (Auto) 30 % (24-48) Monocytes (%) (Auto) 10 % (0-9) Eosinophils (%) (Auto) 4 % (0-3) Basophils (%) (Auto) 1 % (0-3) Neutrophils # (Auto) 1.8 x10^3uL (1.8-7.7) Lymphocytes # (Auto) 1.0 x10^3/uL (1.0-4.8) Monocytes # (Auto) 0.3 x10^3/uL (0.0-1.1) Eosinophils # (Auto) 0.1 x10^3/uL (0.0-0.7) Basophils # (Auto) 0.0 x10^3/uL (0.0-0.2) Sodium Level 130 mmol/L (136-145) Potassium Level 5.2 mmol/L (3.5-5.1) Chloride Level 101 mmol/L (98-107) Carbon Dioxide Level 17 mmol/L (21-32) Anion Gap 12 (6-14) Blood Urea Nitrogen 28 mg/dL (8-26) Creatinine 1.8 mg/dL (0.7-1.3) Estimated GFR (Cockcroft-Gault) 39.2 Glucose Level 78 mg/dL (70-99) Calcium Level 8.2 mg/dL (8.5-10.1) Brief Hospital Course Mr. Thompson is a 58 old [sex] who presented with [ ] Addendum to discharge summary done 09/22 Patient did not want to go home without being tapped - IR did paracemtesis. 11 L out, ALso got albumin Creatinine 1.8 on discharge. Has gotten 22 doses of morphine and he had a fight with tanya ferrer about him being discharged because he wanted to keep his IV line to get morphine even with the thought of him discharging today. He lost his IV line. He was fighting me to reinsert his IV line. No reinsertion of IV line needed I have Rx'd Percocet. I did not start any MS Contin as his course was remarkable for some drowsiness and is encephalopathic. Hard discharge. Palliative is on board but could not reach the . HE would refuse to talk to me or renal, But I did some peak with the mother who lives 150 miles is aware of his overall poor prognosis K 5.2 on dc - lactulose on chart and has been getting 20 doses lactulose Discharge Information Condition at Discharge: Improved, Stable Disposition/Orders: D/C to Home Scheduled Furosemide (Lasix) 40 Mg Tablet, 1 TAB PO DAILY for ascites, #30 Ref 1 Prescribed by: AAMIR GREER on 08/20/1853 Last Taken: 40 mg on 09/15/18 Last Action: Continued on 09/17/18 1024 by ALEIDA VAUGHAN Rifaximin (Xifaxan) 550 Mg Tablet, 550 MG PO Q12HR for liver function MDD 1, # 60 Ref 1 Prescribed by: ALEIDA VAUGHAN on 09/18/18 0901 Spironolactone (Aldactone) 25 Mg Tablet, 50 MG PO QODAY for ascites, #30 Prescribed by: AAMIR GREER on 08/20/18 0953 Last Taken: 50 mg on 09/15/18 Last Action: Converted on 09/17/18 1024 by ALEIDA VAUGHAN [Pantoprazole] 40 MG TABLET.DR, 40 MG PO DAILYAC for gerd MDD 1, #30 Prescribed by: ALEIDA VAUGHAN on 09/18/18 0901 Scheduled PRN Lactulose (Lactulose) 20 Gm/30 Ml Solution, 20 GM PO PRN Q12HR PRN for CONSTIPATION MDD 1 for 30 Days Prescribed by: ALEIDA VAUGHAN on 09/18/18 0901 Tramadol Hcl (Tramadol Hcl) 50 Mg Tablet, 50 MG PO Q6HRS PRN for PAIN for 7 Days , #28 Prescribed by: AAMIR GREER on 09/09/18 1138 Last Taken: 50 mg on 09/14/18 Last Action: Continued on 09/15/18 1609 by MD CLEMENT PITT CHERRIE Y MD Sep 24, 2018 09:30
[2018-09-24 11:00] VITALS: BP 117/69
[2018-09-24] MEDS: traMADol 50 MG TABLET PO PRN (11:12)
--- NOTE | 2018-09-24 13:44 | NUR ---
Patient discharged home, provided transportation with cab pass. Dressings to arms changed, photos taken. Patient advised to try not to pick or pull skin on arms. Vaseline gauze was applied to open areas, 4x4's, wrapped with Kerlix, secured with stockingette. Bandaid to puncture site on abdomen.
== END 2018-09-24 13:44 | disposition home or self-care (01) | DRG 432 ==
LOC: ER 08:19 → 1 WEST ICU 08:41 → 5 NORTH 09-16 17:56
PROVIDERS: ADMIT Internal Medicine; ATTEND Internal Medicine
PROC: 30233R1 Transfusion of Nonautologous Platelets into Peripheral Vein, Percutaneous Approach (ICD-10-PCS; principal; 2018-09-15)
PROC: 30233N1 Transfusion of Nonautologous Red Blood Cells into Peripheral Vein, Percutaneous Approach (ICD-10-PCS; 2018-09-15)
PROC: 0W9G3ZZ Drainage of Peritoneal Cavity, Percutaneous Approach (ICD-10-PCS; 2018-09-19)
PROC: 0W9G3ZZ Drainage of Peritoneal Cavity, Percutaneous Approach (ICD-10-PCS; 2018-09-23)
DX: K70.31 Alcoholic cirrhosis of liver with ascites (principal); E43 Unspecified severe protein-calorie malnutrition; K76.7 Hepatorenal syndrome; E87.1 Hypo-osmolality and hyponatremia; D61.818 Other pancytopenia; D68.9 Coagulation defect, unspecified; K70.40 Alcoholic hepatic failure without coma; N18.3 Chronic kidney disease, stage 3 (moderate); F32.9 Major depressive disorder, single episode, unspecified; K21.9 Gastro-esophageal reflux disease without esophagitis; I95.9 Hypotension, unspecified; E87.70 Fluid overload, unspecified; Z96.659 Presence of unspecified artificial knee joint; F17.210 Nicotine dependence, cigarettes, uncomplicated; Z87.11 Personal history of peptic ulcer disease; Z79.899 Other long term (current) drug therapy; Z82.49 Family history of ischemic heart disease and other diseases of the circulatory system; Z68.28 Body mass index [BMI] 28.0-28.9, adult; Z88.0 Allergy status to penicillin; Z88.7 Allergy status to serum and vaccine; Z88.8 Allergy status to other drugs, medicaments and biological substances; D63.8 Anemia in other chronic diseases classified elsewhere
CPT/HCPCS: 36415; 49083; 80048; 80053; 80076; 81001; 82140; 82550; 84300; 84550; 85014; 85018; 85025; 85049; 85610; 85730; 86850; 86900; 86901; 86920; 87086; 87186; 87641; 96374; 96375; G0480; J2270; J2405; J3010; J3430; J7030; J7040; P9016; P9035; P9046; 99285-25

== ENCOUNTER 2019-06-29 18:49 | Emergency (ER) | payer SELFPAY ==
[~2019-06-29] VITALS: Ht 172.7 cm; Wt 74.8 kg
[~2019-06-29 18:49] MED LIST changes: +LIDO700A21 TD; -LIDO700A39 TD; -LINE600T PO; +LINE600T12 PO; +Pantoprazole PO
[2019-06-29 21:42] LABS: BILIRUBIN,URINE NEGATIVE (NEG); CLARITY,URINE CLEAR; COLOR,URINE YELLOW; NITRITE,URINE NEGATIVE (NEG); PH,URINE 5.5; PROTEIN,URINE 30 mg/dL (NEG-TRACE); UROBILINOGEN,URINE 0.2 mg/dL (0.2 mg/dL)
[2019-06-29 21:43] LABS: CREATININE ISTAT 1.1 mg/dL (0.5-1.4); HEMOGLOBIN ISTAT 11.6 g/dL (14-18); ION CA ISTAT 1.1 mmol/L (1.13-1.32); POTASSIUM ISTAT 5.1 mmol/L (3.5-5.0)
[2019-06-29 21:50] LABS: BASO % 1 % (0-3); EOS # 0.2 x10^3/uL (0.0-0.7); EOS % 5 % (0-3); HEMATOCRIT 35.3 % (39.0-53.0); HEMOGLOBIN 11.6 g/dL (13.0-17.5); LYMPH % 32 % (24-48); MEAN CORPUSCULAR HEMOGLOBIN 29 pg (25-35); MEAN CORPUSCULAR HGB CONC 33 g/dL (31-37); MEAN CORPUSCULAR VOLUME 88 fL (79-100); MONO # 0.3 x10^3/uL (0.0-1.1); MONO % 8 % (0-9); NEUT # 1.7 x10^3/uL (1.8-7.7); NEUT % 54 % (31-73); PLATELET COUNT 117 x10^3/uL (140-400); RED CELL DISTRIBUTION WIDTH 15.8 % (11.5-14.5); WHITE BLOOD COUNT 3.2 x10^3/uL (4.0-11.0)
[2019-06-29 21:53] LABS: BACTERIA,URINE 0 /HPF (0-FEW); RBC,URINE >40 /HPF (0-2); SQUAMOUS EPITHELIAL CELL,UR FEW /LPF; WBC,URINE OCC /HPF (0-4)
[2019-06-29 21:58] LABS: CALCIUM 8.2 mg/dL (8.5-10.1); GFR 77.3
[2019-06-29 22:04] LABS: ALBUMIN 2.5 g/dL (3.4-5.0); ALBUMIN/GLOBULIN RATIO 0.5 (1.0-1.7); TOTAL BILIRUBIN 0.6 mg/dL (0.2-1.0); TOTAL PROTEIN 7.4 g/dL (6.4-8.2)
--- NOTE | 2019-06-29 22:40 | PHYS DOC ---
Past Medical History Past Medical History: Liver Disease Additional Past Medical Histor: CELLULITIS,BORDERLINE HTN, ASCITES Past Surgical History: Other Additional Past Surgical Histo: Knee surgery, wrist surgery, HERNIA SX Alcohol Use: Sober Drug Use: None Adult General Chief Complaint Chief Complaint: CONTISPATION HPI HPI 58-year-old male presents to the emergency department with complaints of abdominal pain, constipation. Patient had a hernia repair secondary to strangle liter hernia pressing one month ago. He described no bowel movement 5-6 days. He has had flatus. Denies any fever, nausea, vomiting, chest pain, shortness of breath. Nothing makes his symptoms worse, nothing makes his symptoms better Review of Systems Review of Systems Constitutional: Denies fever or chills [] Respiratory: Denies cough or shortness of breath [] Cardiovascular: No additional information not addressed in HPI [] GI: + abdominal pain, no nausea, vomiting, + constipation [] Integument: Denies rash or skin lesions [] Neurologic: Denies headache, focal weakness or sensory changes [] All other systems were reviewed and found to be within normal limits, except as documented in this note. Current Medications Current Medications Current Medications Medications (Trade) Dose Ordered Sig/Marc Start Time Stop Time Status Last Admin Dose Admin Info (CONTRAST GIVEN -- Rx MONITORING) 1 each PRN DAILY PRN 06/29/19 22:45 07/01/19 22:44 Iohexol (Omnipaque 300 Mg/ml) 75 ml 1X ONCE 06/29/19 23:00 06/29/19 23:01 DC 06/29/19 22:57 75 ML Allergies Allergies Allergies Coded Allergies Type Severity Reaction Last Updated Verified Penicillins Allergy Severe ANPHYLAXIS 05/30/18 Yes trovafloxacin Allergy Severe Anaphylaxis 05/30/18 Yes Influenza Virus Vaccines Allergy Intermediate 06/16/18 Yes Physical Exam Physical Exam Constitutional: Well developed, well nourished, no acute distress, non-toxic appearance. [] HENT: Normocephalic, atraumatic, bilateral external ears normal, oropharynx moist, no oral exudates, nose normal. [] Eyes: PERRLA, EOMI, conjunctiva normal, no discharge. [] Neck: Normal range of motion, no tenderness, supple, no stridor. [] Cardiovascular:Heart rate regular rhythm, no murmur [] Lungs & Thorax: Bilateral breath sounds clear to auscultation [] Abdomen: Bowel sounds normal, soft, no tenderness, no masses, no pulsatile masses. [] Skin: Warm, dry, no erythema, no rash. [] Back: No tenderness, no CVA tenderness. [] Extremities: No tenderness, no cyanosis, no clubbing, ROM intact, no edema. [] Neurologic: Alert and oriented X 3, normal motor function, normal sensory f unction, no focal deficits noted. [] Psychologic: Affect normal, judgement normal, mood normal. [] Current Patient Data Vital Signs Vital Signs Date Time Temp Pulse Resp B/P (MAP) Pulse Ox O2 Delivery O2 Flow Rate FiO2 06/29/19 23:18 84 104/75 (85) Room Air 06/29/19 23:09 99 06/29/19 22:48 14 06/29/19 21:05 98.5 98.5 Lab Values Laboratory Tests Test 06/29/19 21:15 06/29/19 21:40 06/29/19 21:41 Urine Collection Type Unknown Urine Color Yellow Urine Clarity Clear Urine pH 5.5 Urine Specific [place] 1.010 Urine Protein 30 mg/dL (NEG-TRACE) Urine Glucose (UA) Negative mg/dL (NEG) Urine Ketones (Stick) Negative mg/dL (NEG) Urine Blood Large (NEG) Urine Nitrite Negative (NEG) Urine Bilirubin Negative (NEG) Urine Urobilinogen Dipstick 0.2 mg/dL (0.2 mg/dL) Urine Leukocyte Esterase Negative (NEG) Urine RBC >40 /HPF (0-2) Urine WBC Occ /HPF (0-4) Urine Squamous Epithelial Cells Few /LPF Urine Bacteria 0 /HPF (0-FEW) Urine Mucus Slight /LPF White Blood Count 3.2 x10^3/uL (4.0-11.0) L Red Blood Count 4.00 x10^6/uL (4.30-5.70) L Hemoglobin 11.6 g/dL (13.0-17.5) L Hematocrit 35.3 % (39.0-53.0) L Mean Corpuscular Volume 88 fL (79-100) Mean Corpuscular Hemoglobin 29 pg (25-35) Mean Corpuscular Hemoglobin Concent 33 g/dL (31-37) Red Cell Distribution Width 15.8 % (11.5-14.5) H Platelet Count 117 x10^3/uL (140-400) L Neutrophils (%) (Auto) 54 % (31-73) Lymphocytes (%) (Auto) 32 % (24-48) Monocytes (%) (Auto) 8 % (0-9) Eosinophils (%) (Auto) 5 % (0-3) H Basophils (%) (Auto) 1 % (0-3) Neutrophils # (Auto) 1.7 x10^3/uL (1.8-7.7) L Lymphocytes # (Auto) 1.0 x10^3/uL (1.0-4.8) Monocytes # (Auto) 0.3 x10^3/uL (0.0-1.1) Eosinophils # (Auto) 0.2 x10^3/uL (0.0-0.7) Basophils # (Auto) 0.0 x10^3/uL (0.0-0.2) Sodium Level 132 mmol/L (136-145) L Potassium Level 5.0 mmol/L (3.5-5.1) Chloride Level 102 mmol/L (98-107) Carbon Dioxide Level 18 mmol/L (21-32) L Anion Gap 12 (6-14) 14 mmol/L (6-14) Blood Urea Nitrogen 33 mg/dL (8-26) H Creatinine 1.0 mg/dL (0.7-1.3) Estimated GFR (Cockcroft-Gault) 77.3 BUN/Creatinine Ratio 33 (6-20) H Glucose Level 99 mg/dL (70-99) 93 mg/dL (70-99) Lactic Acid Level 1.5 mmol/L (0.4-2.0) Calcium Level 8.2 mg/dL (8.5-10.1) L Total Bilirubin 0.6 mg/dL (0.2-1.0) Aspartate Amino Transferase (AST) 32 U/L (15-37) Alanine Aminotransferase (ALT) 9 U/L (16-63) L Alkaline Phosphatase 145 U/L (46-116) H Total Protein 7.4 g/dL (6.4-8.2) Albumin 2.5 g/dL (3.4-5.0) L Albumin/Globulin Ratio 0.5 (1.0-1.7) L POC Hemoglobin 11.6 g/dL (14-18) L POC Hematocrit 34 % (37-52) L POC Sodium 132 mmol/L (135-145) L POC Potassium 5.1 mmol/L (3.5-5.0) H POC Chloride 105 mmol/L (98-110) POC Total CO2 18 mmol/L (23-32) L POC Blood Urea Nitrogen 29 mg/dL (8-26) H POC Creatinine 1.1 mg/dL (0.5-1.4) POC Ionized Calcium (Tanja) 1.10 mmol/L (1.13-1.32) L Laboratory Tests 06/29/19 21:40 Laboratory Tests 06/29/19 21:40 06/29/19 21:41 EKG EKG [] Radiology/Procedures Radiology/Procedures [facility] [address] [place] [address] IMAGING REPORT Signed PATIENT: MARQUISE ROGERS ACCOUNT: [id number] : 1960 LOCATION: ER AGE: 58 SEX: M EXAM STATUS: REG ER ORD. PHYSICIAN: RUFUS OH MD REASON: ABD PAIN PROCEDURE: CT ABD PELV W/ IV CONTRST ONLY CT SCAN OF THE ABDOMEN AND PELVIS WITH IV CONTRAST. History: Abdominal pain Comparison: May 22, 2019. Procedure: Contiguous axial images of the abdomen and pelvis were performed after the administration of 75 cc of Omni 300 IV contrast. Oral contrast: No. Findings: There is moderate free fluid. There are numerous pain varices. There is bilateral gynecomastia. Liver: Small and cirrhotic Spleen: Mild to moderately enlarged Pancreas: Unremarkable Adrenal Glands: Unremarkable Kidneys: Unremarkable There is no mass or lymphadenopathy. There is no free air. The urinary bladder appears normal. There is multiple stones in the gallbladder but no wall thickening or surrounding inflammation. The appendix is not seen. Impression: 1. Cirrhosis. 2. Portal hypertension with splenomegaly and varices. 3. Moderate ascites appears mildly worse. 4. Bilateral gynecomastia. PQRS Compliance Statement: One or more of the following individualized dose reduction techniques were utilized for this examination: 1. Automated exposure control 2. Adjustment of the mA and/or kV according to patient size 3. Use of iterative reconstruction technique Electronically signed by: Ajay Ojeda III, MD (06/29/2019 11:21 PM) [facility] DICTATED and SIGNED BY: AJAY OJEDA III, MD DATE: 06/29/192320 [] Course & Med Decision Making Course & Med Decision Making Pertinent Labs and Imaging studies reviewed. (See chart for details) []58-year-old male presents to the emergency department with complaints of abdominal pain, constipation. Patient had a hernia repair secondary to strangle liter hernia pressing one month ago. He described no bowel movement 5-6 days. He has had flatus. Denies any fever, nausea, vomiting, chest pain, shortness of breath. Nothing makes his symptoms worse, nothing makes his symptoms better Laboratory values reviewed, white blood cell count 3.2, hemoglobin 11.6, potassium 5.0, lactic acid 1.5, urinalysis negative UTI CT reviewed reveals no evidence of acute process intrabdominally s/p [place] enema with relief in ER Recommend dc home with follow up as an outpatient Nelson Disclaimer Nelson Disclaimer This electronic medical record was generated, in whole or in part, using a voice recognition dictation system. Departure Departure Impression: Primary Impression: Constipation Disposition: 01 HOME, SELF-CARE Condition: STABLE Referrals: UNKNOWN PCP NAME (PCP) Patient Instructions: Constipation, Adult, [id number] Additional Instructions: Recommend follow up with PCP 3 - 5 days Return to the ER with worsening symptoms, intractable pain, fever, altered mental status Tylenol/Motrin as needed for pain CT negative for acute process Labs reviewed Problem Qualifiers Primary Impression: Constipation Constipation type: unspecified constipation type Qualified Codes: K59.00 - Constipation, unspecified RUFUS OH MD Jun 29, 2019 22:40
[2019-06-29] MEDS ORDERED: CONTRAST GIVEN. MC PRN (22:45)
[2019-06-29] MEDS ORDERED: IOHEXOL 300 MG/ML 100ML VIAL. IV ONE (23:00)
[2019-06-29 23:18] VITALS: BP 104/75
--- NOTE | 2019-06-29 23:24 | RAD ---
CT SCAN OF THE ABDOMEN AND PELVIS WITH IV CONTRAST. History: Abdominal pain Comparison: May 22, 2019. Procedure: Contiguous axial images of the abdomen and pelvis were performed after the administration of 75 cc of Omni 300 IV contrast. Oral contrast: No. Findings: There is moderate free fluid. There are numerous pain varices. There is bilateral gynecomastia. Liver: Small and cirrhotic Spleen: Mild to moderately enlarged Pancreas: Unremarkable Adrenal Glands: Unremarkable Kidneys: Unremarkable There is no mass or lymphadenopathy. There is no free air. The urinary bladder appears normal. There is multiple stones in the gallbladder but no wall thickening or surrounding inflammation. The appendix is not seen. Impression: 1. Cirrhosis. 2. Portal hypertension with splenomegaly and varices. 3. Moderate ascites appears mildly worse. 4. Bilateral gynecomastia. PQRS Compliance Statement: One or more of the following individualized dose reduction techniques were utilized for this examination: 1. Automated exposure control 2. Adjustment of the mA and/or kV according to patient size 3. Use of iterative reconstruction technique Electronically signed by: Nick Anderson III, MD (06/29/2019 11:21 PM) [facility]
== END 2019-06-30 00:19 | disposition home or self-care (01) ==
LOC: ER 18:49
DX: K59.00 Constipation, unspecified (principal); Z98.890 Other specified postprocedural states; Z88.7 Allergy status to serum and vaccine; Z88.1 Allergy status to other antibiotic agents; Z88.0 Allergy status to penicillin
CPT/HCPCS: 36415; 74177; 80047; 80053; 81001; 83605; 85025; 99285; Q9967

== ENCOUNTER 2019-08-03 10:28 | Emergency (ER) | payer SELFPAY ==
[~2019-08-03] VITALS: Ht 172.7 cm; Wt 75.9 kg
[2019-08-03 11:55] LABS: BASO % 3 % (0-3); EOS # 0.1 x10^3/uL (0.0-0.7); EOS % 8 % (0-3); HEMATOCRIT 26.9 % (39.0-53.0); HEMOGLOBIN 9.1 g/dL (13.0-17.5); LYMPH # 0.5 x10^3/uL (1.0-4.8); LYMPH % 33 % (24-48); MEAN CORPUSCULAR HEMOGLOBIN 30 pg (25-35); MEAN CORPUSCULAR HGB CONC 34 g/dL (31-37); MEAN CORPUSCULAR VOLUME 88 fL (79-100); MONO # 0.2 x10^3/uL (0.0-1.1); MONO % 12 % (0-9); NEUT # 0.7 x10^3/uL (1.8-7.7); NEUT % 44 % (31-73); PLATELET COUNT 75 x10^3/uL (140-400); RED BLOOD COUNT 3.06 x10^6/uL (4.30-5.70); RED CELL DISTRIBUTION WIDTH 14.8 % (11.5-14.5)
[2019-08-03 11:57] LABS: CREATININE 1.2 mg/dL (0.7-1.3); GFR 62.4
[2019-08-03 11:59] LABS: WHITE BLOOD COUNT 1.6 x10^3/uL (4.0-11.0)
[2019-08-03 12:04] LABS: ALBUMIN 2.4 g/dL (3.4-5.0); ALBUMIN/GLOBULIN RATIO 0.8 (1.0-1.7); TOTAL BILIRUBIN 0.4 mg/dL (0.2-1.0); TOTAL PROTEIN 5.6 g/dL (6.4-8.2)
[2019-08-03 12:07] LABS: PROTHROMBIN TIME PATIENT 15.9 SEC (11.7-14.0)
--- NOTE | 2019-08-03 12:29 | EKG ---
[facility] [address] [place] [address] Test Date: 2019-08-03 Test Time: 11:04:08 Pat Name: MARQUISE BARKER Department: Room: Gender: M Compressor Service Technician: : 1960 Requested By: APURVA PERKINS Order Number: [id number] Reading MD: Measurements Intervals [place] Rate: 90 P: 31 ME: 178 QRS: -22 QRSD: 76 T: 19 QT: 330 QTc: 407 Interpretive Statements SINUS RHYTHM LEFTWARD AXIS OTHERWISE NORMAL ECG No previous ECG available for comparison
--- NOTE | 2019-08-03 12:31 | PHYS DOC ---
Past Medical History Past Medical History: Liver Disease, Other Additional Past Medical Histor: CELLULITIS,BORDERLINE HTN, ASCITES Past Surgical History: Other Additional Past Surgical Histo: Knee surgery, wrist surgery, HERNIA SX Smoking Status: Former Smoker Alcohol Use: Sober Drug Use: None Adult General Chief Complaint Chief Complaint: OTHER COMPLAINTS HPI HPI Patient is a 59 year old male with history of chronic hepatic failure and cirrhosis of ascites who presents with complaint of low sodium. Patient states he was seen at [facility] 4 days ago as his usual place of care for paracentesis and had blood tests and was told later on the same day that he had sodium of 115 and needed to come to the hospital but [place] side of [place] and was not able to come to the hospital and finally decided to come today. Patient denies any new symptoms and he states he feels better after paracentesis and drainage of more than 8 L of ascites fluid. Patient states he had history of hyponatremia and on and following with diet of less than 1000 ML of liquid a day. Patient denies chest pain, shortness of breath, abdominal pain, nausea and vomiting, muscle cramp, fever and chills. Review of Systems Review of Systems Constitutional: Denies fever or chills [] Eyes: Denies change in visual acuity, redness, or eye pain [] HENT: Denies nasal congestion or sore throat [] Respiratory: Denies cough or shortness of breath [] Cardiovascular: No additional information not addressed in HPI [] GI: Denies abdominal pain, nausea, vomiting, bloody stools or diarrhea [] : Denies dysuria or hematuria [] Musculoskeletal: Denies back pain or joint pain [] Integument: Denies rash or skin lesions [] Neurologic: Denies headache, focal weakness or sensory changes [] Endocrine: Denies polyuria or polydipsia [] All other systems were reviewed and found to be within normal limits, except as documented in this note. Allergies Allergies Allergies Coded Allergies Type Severity Reaction Last Updated Verified Penicillins Allergy Severe ANPHYLAXIS 05/30/18 Yes trovafloxacin Allergy Severe Anaphylaxis 05/30/18 Yes Influenza Virus Vaccines Allergy Intermediate 06/16/18 Yes Physical Exam Physical Exam Constitutional: Well developed, no acute distress, non-toxic appearance. [] HENT: Normocephalic, atraumatic. Eyes: PERRLA, EOMI, conjunctiva normal, no discharge. [] Neck: Normal range of motion, no tenderness, supple, no stridor. [] Cardiovascular:Heart rate regular rhythm, no murmur [] Lungs & Thorax: Bilateral breath sounds clear to auscultation [] Abdomen: Bowel sounds normal, soft, mildly distended with fluid without tenderness, no masses, no pulsatile masses. [] Skin: Warm, dry, no erythema, no rash. [] Back: No tenderness, no CVA tenderness. [] Extremities: No tenderness, no cyanosis, no clubbing, ROM intact, bilateral lower extremity trace edema. [] Neurologic: Alert and oriented X 3, no focal deficits noted. [] Psychologic: Affect normal, judgement normal, mood normal. [] Current Patient Data Vital Signs Vital Signs Date Time Temp Pulse Resp B/P (MAP) Pulse Ox O2 Delivery O2 Flow Rate FiO2 08/03/19 12:48 90 16 110/64 (79) 97 Room Air 08/03/19 10:39 98.1 98.1 Lab Values Laboratory Tests Test 08/03/19 11:01 White Blood Count 1.6 x10^3/uL (4.0-11.0) *L Red Blood Count 3.06 x10^6/uL (4.30-5.70) L Hemoglobin 9.1 g/dL (13.0-17.5) L Hematocrit 26.9 % (39.0-53.0) L Mean Corpuscular Volume 88 fL (79-100) Mean Corpuscular Hemoglobin 30 pg (25-35) Mean Corpuscular Hemoglobin Concent 34 g/dL (31-37) Red Cell Distribution Width 14.8 % (11.5-14.5) H Platelet Count 75 x10^3/uL (140-400) L Neutrophils (%) (Auto) 44 % (31-73) Lymphocytes (%) (Auto) 33 % (24-48) Monocytes (%) (Auto) 12 % (0-9) H Eosinophils (%) (Auto) 8 % (0-3) H Basophils (%) (Auto) 3 % (0-3) Neutrophils # (Auto) 0.7 x10^3/uL (1.8-7.7) L Lymphocytes # (Auto) 0.5 x10^3/uL (1.0-4.8) L Monocytes # (Auto) 0.2 x10^3/uL (0.0-1.1) Eosinophils # (Auto) 0.1 x10^3/uL (0.0-0.7) Basophils # (Auto) 0.0 x10^3/uL (0.0-0.2) Segmented Neutrophils % 37 % (35-66) Lymphocytes % 38 % (24-48) Atypical Lymphocytes % (Manual) 2 % (0-0) H Monocytes % 6 % (0-10) Eosinophils % 16 % (0-5) H Myelocytes % 1 % (0-0) H Platelet Estimate Decreased (ADEQUATE) Anisocytosis Present Prothrombin Time 15.9 SEC (11.7-14.0) H Prothrombin Time INR 1.3 (0.8-1.1) H Activated Partial Thromboplast Time 33 SEC (24-38) Sodium Level 125 mmol/L (136-145) L Potassium Level 5.0 mmol/L (3.5-5.1) Chloride Level 94 mmol/L (98-107) L Carbon Dioxide Level 22 mmol/L (21-32) Anion Gap 9 (6-14) Blood Urea Nitrogen 19 mg/dL (8-26) Creatinine 1.2 mg/dL (0.7-1.3) Estimated GFR (Cockcroft-Gault) 62.4 BUN/Creatinine Ratio 16 (6-20) Glucose Level 121 mg/dL (70-99) H Calcium Level 8.0 mg/dL (8.5-10.1) L Total Bilirubin 0.4 mg/dL (0.2-1.0) Aspartate Amino Transferase (AST) 38 U/L (15-37) H Alanine Aminotransferase (ALT) 14 U/L (16-63) L Alkaline Phosphatase 156 U/L (46-116) H Ammonia 55 mcmol/L (11-34) H Creatine Kinase 228 U/L (39-308) Total Protein 5.6 g/dL (6.4-8.2) L Albumin 2.4 g/dL (3.4-5.0) L Albumin/Globulin Ratio 0.8 (1.0-1.7) L Lipase 218 U/L (73-393) Laboratory Tests 08/03/19 11:01 Laboratory Tests 08/03/19 11:01 EKG EKG EKG interpreted by me. EKG at 1104 showed normal sinus rhythm at rate of 91, left licea axis, normal TN and QT intervals, no acute ST and T-wave elevation. Radiology/Procedures Radiology/Procedures [] Course & Med Decision Making Course & Med Decision Making Pertinent Labs reviewed. (See chart for details) Evaluation of patient in ER showed 59-year-old male patient with history of cirrhosis and ascites presented to ER with abnormal sodium of 1:15 that was done 4 days ago. Patient had unremarkable physical exam except for mild ascites after paracentesis of 8 L of fluid 4 days ago patient had sodium of 125 with history of chronic hyponatremia. Patient also had white count of 1.2 with pancytopenia related to chronic liver disease. 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 Luque at [facility]. Dr. Luque was informed about the test results @1330 and agreed with plan of care. Dragon Disclaimer Dragon Disclaimer This electronic medical record was generated, in whole or in part, using a voice recognition dictation system. Departure Departure Impression: Primary Impression: Chronic hyponatremia Additional Impressions: Liver cirrhosis Hepatic failure Pancytopenia Disposition: HOME, SELF-CARE (at 1307) Condition: STABLE Referrals: UNKNOWN PCP NAME (PCP) Patient Instructions: Alcoholic Liver Disease, [id number], Dilutional Hyponatremia Additional Instructions: Continue current medication Follow-up with your primary care physician in 2-3 days Return to ER if not getting better Thank you for visiting [facility]. We appreciate you trusting us with your care. If any additional problems come up don't hesitate to return to visit us. Please follow up with your primary care provider so they can plan additional care if needed and know about the problem that you had. If symptoms worsen come back to the Emergency Department. Any concerning symptoms that start such as chest pain, shortness of air, weakness or numbness on one side of the body, running high fevers or any other concerning symptoms return to the ER. Problem Qualifiers Additional Impressions: Liver cirrhosis Hepatic cirrhosis type: unspecified hepatic cirrhosis Ascites presence: with ascites Qualified Codes: K74.60 - Unspecified cirrhosis of liver; R18.8 - Other ascites Hepatic failure Liver failure chronicity: chronic Hepatic coma status: without hepatic coma Qualified Codes: K72.10 - Chronic hepatic failure without coma APURVA PERKINS MD Aug 03, 2019 12:31
[2019-08-03 12:48] VITALS: BP 110/64
[2019-08-03 12:54] LABS: % ATYL 2 % (0-0); % EOS 16 % (0-5); % LYMPHS 38 % (24-48); % MONOS 6 % (0-10); % MYELOS 1 % (0-0); % SEGS 37 % (35-66)
[2019-08-03 12:55] LABS: ANISOCYTOSIS PRESENT; PLT ESTIMATE DECREASED (ADEQUATE)
== END 2019-08-03 13:15 | disposition home or self-care (01) ==
LOC: ER 10:28
DX: E87.1 Hypo-osmolality and hyponatremia (principal); K74.60 Unspecified cirrhosis of liver; K72.10 Chronic hepatic failure without coma; D61.818 Other pancytopenia; F17.200 Nicotine dependence, unspecified, uncomplicated; Z98.890 Other specified postprocedural states; Z88.0 Allergy status to penicillin; Z88.7 Allergy status to serum and vaccine
CPT/HCPCS: 36415; 80053; 82140; 82550; 83690; 85007; 85025; 85610; 85730; 93005; 99285

== ENCOUNTER 2019-08-17 02:28 | Observation (INO) | payer SELFPAY ==
[2019-08-17] VITALS (8 sets, daily range): BP systolic 102–114; BP diastolic 66–74
[~2019-08-17] VITALS: Ht 172.7 cm; Wt 81.0 kg
[2019-08-17 04:28] LABS: BASO % 1 % (0-3); EOS # 0.2 x10^3/uL (0.0-0.7); EOS % 7 % (0-3); HEMATOCRIT 25.1 % (39.0-53.0); HEMOGLOBIN 8.4 g/dL (13.0-17.5); LYMPH # 0.8 x10^3/uL (1.0-4.8); LYMPH % 32 % (24-48); MEAN CORPUSCULAR HEMOGLOBIN 30 pg (25-35); MEAN CORPUSCULAR HGB CONC 34 g/dL (31-37); MEAN CORPUSCULAR VOLUME 89 fL (79-100); MONO # 0.3 x10^3/uL (0.0-1.1); MONO % 12 % (0-9); NEUT # 1.2 x10^3/uL (1.8-7.7); NEUT % 48 % (31-73); PLATELET COUNT 120 x10^3/uL (140-400); RED BLOOD COUNT 2.83 x10^6/uL (4.30-5.70); RED CELL DISTRIBUTION WIDTH 14.4 % (11.5-14.5); WHITE BLOOD COUNT 2.5 x10^3/uL (4.0-11.0)
[2019-08-17] MEDS ORDERED: ONDANSETRON PF 4 MG/2 ML VIAL. IVP ONE (04:30)
[2019-08-17] MEDS ORDERED: fentaNYL PF VIAL 100 MCG/2 ML VIAL IVP ONE (04:30)
--- NOTE | 2019-08-17 04:36 | PHYS DOC ---
Past Medical History Past Medical History: Liver Disease, Other Additional Past Medical Histor: CELLULITIS,BORDERLINE HTN, ASCITES Past Surgical History: Other Additional Past Surgical Histo: Knee surgery, wrist surgery, HERNIA SX Smoking Status: Former Smoker Alcohol Use: Sober Drug Use: None Adult General Chief Complaint Chief Complaint: ABDOMINAL PAIN HPI HPI 59-year-old male presents to the emergency Department complaints of abdominal pain. Patient has known cirrhosis, anemia, ascites. States his last paracentesis was approximately December 15. He denies any nausea, vomiting, diarrhea, fever. Blood pressure currently 138/86, heart rate 90s, saturations 100%, no evidence of respiratory distress. Currently describes his pain an 8 out of 10. Nothing makes his pain worse, nothing makes his pain better. Patient denies any chest pain, shortness of breath. Review of Systems Review of Systems Constitutional: Denies fever or chills [] Respiratory: Denies cough or shortness of breath [] Cardiovascular: No additional information not addressed in HPI [] GI: Denies abdominal pain, nausea, vomiting, bloody stools or diarrhea [] Musculoskeletal: Denies back pain or joint pain [] Integument: Denies rash or skin lesions [] Neurologic: Denies headache, focal weakness or sensory changes [] All other systems were reviewed and found to be within normal limits, except as documented in this note. Current Medications Current Medications Current Medications Medications (Trade) Dose Ordered Sig/Marc Start Time Stop Time Status Last Admin Dose Admin Fentanyl Citrate (Fentanyl 2ml Vial) 75 mcg 1X ONCE 08/17/19 04:30 08/17/19 04:31 DC 08/17/19 04:33 75 MCG Ondansetron HCl (Zofran) 4 mg 1X ONCE 08/17/19 04:30 08/17/19 04:31 DC 08/17/19 04:32 4 MG Zinc Acetate/ Diphenhydramine (Benadryl Topical) 1 maria isabel 1X PRN 08/17/19 05:30 UNV Allergies Allergies Allergies Coded Allergies Type Severity Reaction Last Updated Verified Penicillins Allergy Severe ANPHYLAXIS 05/30/18 Yes trovafloxacin Allergy Severe Anaphylaxis 05/30/18 Yes Influenza Virus Vaccines Allergy Intermediate 06/16/18 Yes Physical Exam Physical Exam Constitutional: Well developed, well nourished, mild distress secondary to pain, non-toxic appearance. [] HENT: Normocephalic, atraumatic, bilateral external ears normal, oropharynx moist, no oral exudates, nose normal. [] Eyes: PERRLA, EOMI, conjunctiva normal, no discharge. [] Cardiovascular:Heart rate regular rhythm, no murmur [] Lungs & Thorax: Bilateral breath sounds clear to auscultation [] Abdomen: Bowel sounds normal, soft, distended, no masses, no pulsatile mass[] Skin: Warm, dry, no erythema, no rash. [] Back: No tenderness, no CVA tenderness. [] Extremities: No tenderness, no edema. [] Neurologic: Alert and oriented X 3, normal motor function, normal sensory function, no focal deficits noted. [] Psychologic: Affect normal, judgement normal, mood normal. [] Current Patient Data Vital Signs Vital Signs Date Time Temp Pulse Resp B/P (MAP) Pulse Ox O2 Delivery O2 Flow Rate FiO2 08/17/19 04:33 Room Air 08/17/19 03:10 98.3 100 18 135/83 (100) 97 98.3 Lab Values Laboratory Tests Test 08/17/19 04:20 08/17/19 04:43 White Blood Count 2.5 x10^3/uL (4.0-11.0) L Red Blood Count 2.83 x10^6/uL (4.30-5.70) L Hemoglobin 8.4 g/dL (13.0-17.5) L Hematocrit 25.1 % (39.0-53.0) L Mean Corpuscular Volume 89 fL (79-100) Mean Corpuscular Hemoglobin 30 pg (25-35) Mean Corpuscular Hemoglobin Concent 34 g/dL (31-37) Red Cell Distribution Width 14.4 % (11.5-14.5) Platelet Count 120 x10^3/uL (140-400) L Neutrophils (%) (Auto) 48 % (31-73) Lymphocytes (%) (Auto) 32 % (24-48) Monocytes (%) (Auto) 12 % (0-9) H Eosinophils (%) (Auto) 7 % (0-3) H Basophils (%) (Auto) 1 % (0-3) Neutrophils # (Auto) 1.2 x10^3/uL (1.8-7.7) L Lymphocytes # (Auto) 0.8 x10^3/uL (1.0-4.8) L Monocytes # (Auto) 0.3 x10^3/uL (0.0-1.1) Eosinophils # (Auto) 0.2 x10^3/uL (0.0-0.7) Basophils # (Auto) 0.0 x10^3/uL (0.0-0.2) Prothrombin Time 14.7 SEC (11.7-14.0) H Prothrombin Time INR 1.2 (0.8-1.1) H Sodium Level 133 mmol/L (136-145) L Potassium Level 4.9 mmol/L (3.5-5.1) Chloride Level 105 mmol/L (98-107) Carbon Dioxide Level 21 mmol/L (21-32) Anion Gap 7 (6-14) Blood Urea Nitrogen 34 mg/dL (8-26) H Creatinine 1.5 mg/dL (0.7-1.3) H Estimated GFR (Cockcroft-Gault) 48.2 BUN/Creatinine Ratio 23 (6-20) H Glucose Level 104 mg/dL (70-99) H Calcium Level 8.6 mg/dL (8.5-10.1) Total Bilirubin 0.6 mg/dL (0.2-1.0) Aspartate Amino Transferase (AST) 27 U/L (15-37) Alanine Aminotransferase (ALT) 13 U/L (16-63) L Alkaline Phosphatase 83 U/L (46-116) Total Protein 6.2 g/dL (6.4-8.2) L Albumin 2.3 g/dL (3.4-5.0) L Albumin/Globulin Ratio 0.6 (1.0-1.7) L Lipase 208 U/L (73-393) Laboratory Tests 08/17/19 04:20 Laboratory Tests 08/17/19 04:43 EKG EKG [] Radiology/Procedures Radiology/Procedures [] Course & Med Decision Making Course & Med Decision Making Pertinent Labs and Imaging studies reviewed. (See chart for details) []59-year-old male presents to the emergency Department complaints of abdominal pain. Patient has known cirrhosis, anemia, ascites. States his last paracentesis was approximately December 15. He denies any nausea, vomiting, diarrhea, fever. Blood pressure currently 138/86, heart rate 90s, saturations 100%, no evidence of respiratory distress. Currently describes his pain an 8 out of 10. Nothing makes his pain worse, nothing makes his pain better. Patient denies any chest pain, shortness of breath. Labs reviewed, INR 1.1, creatinine 1.5, globin 8.4, platelets 120 Imaging obtained patient with obvious ascites Ultrasound guided paracentesis to be performed today. Patient to be admitted for pain control and paracentesis. Dragon Disclaimer Dragon Disclaimer This electronic medical record was generated, in whole or in part, using a voice recognition dictation system. Departure Departure Impression: Primary Impression: Abdominal pain Additional Impressions: Ascites Liver cirrhosis Thrombocytopenia Disposition: ADMITTED INPATIENT Admitting Physician: OSIRIS Condition: STABLE Referrals: UNKNOWN PCP NAME (PCP) Problem Qualifiers Primary Impression: Abdominal pain Abdominal location: generalized Qualified Codes: R10.84 - Generalized abdominal pain Additional Impressions: Ascites Ascites type: due to alcoholic cirrhosis Qualified Codes: K70.31 - Alcoholic cirrhosis of liver with ascites Liver cirrhosis Hepatic cirrhosis type: alcoholic cirrhosis Ascites presence: with ascites Qualified Codes: K70.31 - Alcoholic cirrhosis of liver with ascites RUFUS OH MD Aug 17, 2019 04:36
[2019-08-17 04:42] LABS: PROTHROMBIN TIME PATIENT 14.7 SEC (11.7-14.0)
[2019-08-17 05:00] LABS: CALCIUM 8.6 mg/dL (8.5-10.1); CREATININE 1.5 mg/dL (0.7-1.3); GFR 48.2; POTASSIUM 4.9 mmol/L (3.5-5.1)
[2019-08-17 05:06] LABS: ALBUMIN 2.3 g/dL (3.4-5.0); ALBUMIN/GLOBULIN RATIO 0.6 (1.0-1.7); TOTAL BILIRUBIN 0.6 mg/dL (0.2-1.0); TOTAL PROTEIN 6.2 g/dL (6.4-8.2)
[2019-08-17] MEDS ORDERED: DIPHENHYDRAMINE/ZINC ACETATE 2%/0.1% TOPICAL CREAM 28GM TUBE. TP PRN (05:30)
[2019-08-17] MEDS ORDERED: diphenhydrAMINE 50 MG/ML VIAL IVP ONE (05:30)
[2019-08-17] MEDS ORDERED: ONDANSETRON PF 4 MG/2 ML VIAL. IV PRN (05:30)
[2019-08-17] MEDS: fentaNYL PF VIAL 100 MCG/2 ML VIAL IV PRN ×2 (05:49→07:57)
--- NOTE | 2019-08-17 07:35 | PDOC1 ---
History and Physical Date of Admission Date of Admission DATE: 08/17/19 TIME: 07:33 Identification/Chief Complaint Chief Complaint Abdominal pain Source Source: Patient History of Present Illness History of Present Illness Mr Thompson is a 58yo M w/ PMHx alcoholic cirrhosis with multiple prior paracenteses who presents with diffuse abdominal pain he describes as 05/07 while yawning. He has a history of recurrent paracentesis weekly, had an 8.6L paracentesis in RUQ done at this morning with albumin infusion at the time. He has had progressive abdominal discomfort since having his paracentesis done. He has had some nausea, no vomiting, dizziness or lightheadedness. He denies any chest pain or shortness of breath. He denies any black or bloody stools. He tells me he takes daily "cipro" and Lasix as well. He states he did drive back here from [place] overnight last night. He states he only about 2 hours of sleep. He is requesting IV fentanyl currently. CT abdomen shows periumbilical hernia with no obstruction. It cannot be reduced in the ED. He has a periumbilical red scaly cool rash he notes is psoriasis INR 1.1, Platelets 102, Hb 8.4 WBC 2.5. No fevers Past Medical History Cardiovascular: No pertinent hx Pulmonary: No pertinent hx GI: GERD, Peptic Ulcer disease Heme/Onc: Anemia NOS Hepatobiliary: Cirrhosis, Other Renal/: Acute renal failure Past Surgical History Past Surgical History: Total knee replacement, Other Family History Family History: Hypertension Social History Smoke: No ALCOHOL: none Drugs: None Current Problem List Problem List Problems Medical Problems: (1) Abdominal pain Status: Acute (2) Ascites Status: Acute (3) Thrombocytopenia Status: Acute Current Medications Current Medications Current Medications Fentanyl Citrate (Fentanyl 2ml Vial) 75 mcg 1X ONCE IVP Last administered on 08/17/19at 04:33; Start 08/17/19 at 04:30; Stop 08/17/19 at 04:31; Status DC Ondansetron HCl (Zofran) 4 mg 1X ONCE IVP Last administered on 08/17/19at 04:32; Start 08/17/19 at 04:30; Stop 08/17/19 at 04:31; Status DC Zinc Acetate/ Diphenhydramine (Benadryl Topical) 1 maria isabel 1X PRN TP ITCHING Last administered on 08/17/19at 05:29; Start 08/17/19 at 05:30 Ondansetron HCl (Zofran) 4 mg PRN Q8HRS PRN IV NAUSEA/VOMITING; Start 08/17/19 at 05:30; Stop 08/18/19 at 05:29 Fentanyl Citrate (Fentanyl 2ml Vial) 50 mcg PRN Q1HR PRN IV PAIN Last administered on 08/17/19at 05:49; Start 08/17/19 at 05:30; Stop 08/18/19 at 05:29 Diphenhydramine HCl (Benadryl) 25 mg 1X ONCE IVP Last administered on 08/17/19at 05:36; Start 08/17/19 at 05:30; Stop 08/17/19 at 05:39; Status DC Active Scripts Active [Pantoprazole] 40 MG Tablet.dr 40 Mg PO DAILYAC MDD 1 Lactulose 20 Gm/30 Ml Solution 20 Gm PO PRN Q12HR PRN MDD 1 30 Days Xifaxan (Rifaximin) 550 Mg Tablet 550 Mg PO Q12HR MDD 1 Tramadol Hcl 50 Mg Tablet 50 Mg PO Q6HRS PRN 7 Days Lasix (Furosemide) 40 Mg Tablet 1 Tab PO DAILY Aldactone (Spironolactone) 25 Mg Tablet 50 Mg PO QODAY Allergies Allergies: Coded Allergies: Penicillins (Verified Allergy, Severe, ANPHYLAXIS, 05/30/18) trovafloxacin (Verified Allergy, Severe, Anaphylaxis, 05/30/18) Anaphylactic Influenza Virus Vaccines (Verified Allergy, Intermediate, 06/16/18) ROS General: No: Chills, Night Sweats, Fatigue, Malaise, Appetite, Other PSYCHOLOGICAL ROS: No: Anxiety, Behavioral Disorder, Concentration difficultie, Decreased libido, Depression, Disorientation, Hallucinations, Hostility, Irritablity, Memory difficulties, Mood Swings, Obsessive thoughts, Physical abuse, Sexual abuse, Sleep disturbances, Suicidal ideation, Other Eyes: No Blurry vision, No Decreased vision, No Double vision, No Dry eyes, No Excessive tearing, No Eye Pain, No Itchy Eyes, No Loss of vision, No Photophobia, No Scotomata, No Uses contacts, No Uses glasses, No Other HEENT: No: Heacaches, Visual Changes, Hearing change, Nasal congestion, Nasal discharge, Oral lesions, Sinus pain, Sore Throat, Epistaxis, Sneezing, Snoring, Tinnitus, Vertigo, Vocal changes, Other ALLERGY AND IMMUNOLOGY: No: Hives, Insect Bite Sensitivity, Itchy/Watery Eyes, Nasal Congestion, Post Nasal Drip, Seasonal Allergies, Other Hematological and Lymphatic: No: Bleeding Problems, Blood Clots, Blood Transfusions, Brusing, Night Sweats, Pallor, Swollen Lymph Nodes, Other ENDOCRINE: No: Breast Changes, Galactorrhea, Hair Pattern Changes, Hot Flashes, Malaise/lethargy, Mood Swings, Palpitations, Polydipsia/polyuria, Skin Changes, Temperature Intolerance, Unexpected Weight Changes, Other Breast: No New/Changing Breast Lumps, No Nipple changes, No Nipple discharge, No Other Respiratory: No: Cough, Hemoptysis, Orthopnea, Pleuritic Pain, Shortness of breath, SOB with excertion, Sputum Changes, Stridor, Tachypnea, Wheezing, Other Cardiovascular: No Chest Pain, No Palpitations, No Orthopnea, No Paroxysmal Noc. Dyspnea, No Edema, No Lt Headedness, No Other Gastrointestinal: Yes Nausea, Yes Abdominal Pain; No Vomiting, No Diarrhea, No Constipation, No Melena, No Hematochezia, No Other Genitourinary: No Dysuria, No Frequency, No Incontinence, No Hematuria, No Retention, No Discharge, No Urgency, No Pain, No Flank Pain, No Other, No , No , No , No , No , No , No Musculoskeletal: No Gait Disturbance, No Joint Pain, No Joint Stiffness, No Joint Swelling, No Muscle Pain, No Muscular Weakness, No Pain In:, No Swelling In:, No Other Neurological: No Behavorial Changes, No Bowel/Bladder ControlChng, No Confusion, No Dizziness, No Gait Disturbance, No Headaches, No Impaired Coord/balance, No Memory Loss, No Numbness/Tingling, No Seizures, No Speech Problems, No Tremors, No Visual Changes, No Weakness, No Other Skin: No Dry Skin, No Eczema, No Hair Changes, No Lumps, No Mole Changes, No Mottling, No Nail Changes, No Pruritus, No Rash, No Skin Lesion Changes, No Other, No Acne Physical Exam General: Alert, Oriented X3, Cooperative, No acute distress HEENT: Atraumatic, PERRLA, EOMI, Mucous membr. moist/pink Lungs: Clear to auscultation, Normal air movement Heart: S1S2, RRR, no thrills, no rubs, no gallops, no murmurs Abdomen: Normal bowel sounds, Soft, No tenderness, No hepatosplenomegaly, No masses Rectal Exam: not examined Extremities: No clubbing, No cyanosis, No edema, Normal pulses, No tenderness/swelling Skin: No rashes, No breakdown, No significant lesion Neuro: Normal gait, Normal speech, Strength at 5/5 X4 ext, Normal tone, Sensation intact, Cranial nerves 3-12 NL, Reflexes 2+ Psych/Mental Status: Mental status NL, Mood NL Vitals Vitals Vital Signs Date Time Temp Pulse Resp B/P (MAP) Pulse Ox O2 Delivery O2 Flow Rate FiO2 08/17/19 05:49 98 Room Air 08/17/19 05:25 94 97/55 (69) 08/17/19 03:10 98.3 18 98.3 Labs Labs Laboratory Tests Test 08/17/19 04:20 08/17/19 04:43 White Blood Count 2.5 x10^3/uL (4.0-11.0) Red Blood Count 2.83 x10^6/uL (4.30-5.70) Hemoglobin 8.4 g/dL (13.0-17.5) Hematocrit 25.1 % (39.0-53.0) Mean Corpuscular Volume 89 fL (79-100) Mean Corpuscular Hemoglobin 30 pg (25-35) Mean Corpuscular Hemoglobin Concent 34 g/dL (31-37) Red Cell Distribution Width 14.4 % (11.5-14.5) Platelet Count 120 x10^3/uL (140-400) Neutrophils (%) (Auto) 48 % (31-73) Lymphocytes (%) (Auto) 32 % (24-48) Monocytes (%) (Auto) 12 % (0-9) Eosinophils (%) (Auto) 7 % (0-3) Basophils (%) (Auto) 1 % (0-3) Neutrophils # (Auto) 1.2 x10^3/uL (1.8-7.7) Lymphocytes # (Auto) 0.8 x10^3/uL (1.0-4.8) Monocytes # (Auto) 0.3 x10^3/uL (0.0-1.1) Eosinophils # (Auto) 0.2 x10^3/uL (0.0-0.7) Basophils # (Auto) 0.0 x10^3/uL (0.0-0.2) Prothrombin Time 14.7 SEC (11.7-14.0) Prothromb Time International Ratio 1.2 (0.8-1.1) Sodium Level 133 mmol/L (136-145) Potassium Level 4.9 mmol/L (3.5-5.1) Chloride Level 105 mmol/L (98-107) Carbon Dioxide Level 21 mmol/L (21-32) Anion Gap 7 (6-14) Blood Urea Nitrogen 34 mg/dL (8-26) Creatinine 1.5 mg/dL (0.7-1.3) Estimated GFR (Cockcroft-Gault) 48.2 BUN/Creatinine Ratio 23 (6-20) Glucose Level 104 mg/dL (70-99) Calcium Level 8.6 mg/dL (8.5-10.1) Total Bilirubin 0.6 mg/dL (0.2-1.0) Aspartate Amino Transf (AST/SGOT) 27 U/L (15-37) Alanine Aminotransferase (ALT/SGPT) 13 U/L (16-63) Alkaline Phosphatase 83 U/L (46-116) Total Protein 6.2 g/dL (6.4-8.2) Albumin 2.3 g/dL (3.4-5.0) Albumin/Globulin Ratio 0.6 (1.0-1.7) Lipase 208 U/L (73-393) Laboratory Tests Test 08/17/19 04:20 08/17/19 04:43 White Blood Count 2.5 x10^3/uL (4.0-11.0) Red Blood Count 2.83 x10^6/uL (4.30-5.70) Hemoglobin 8.4 g/dL (13.0-17.5) Hematocrit 25.1 % (39.0-53.0) Mean Corpuscular Volume 89 fL (79-100) Mean Corpuscular Hemoglobin 30 pg (25-35) Mean Corpuscular Hemoglobin Concent 34 g/dL (31-37) Red Cell Distribution Width 14.4 % (11.5-14.5) Platelet Count 120 x10^3/uL (140-400) Neutrophils (%) (Auto) 48 % (31-73) Lymphocytes (%) (Auto) 32 % (24-48) Monocytes (%) (Auto) 12 % (0-9) Eosinophils (%) (Auto) 7 % (0-3) Basophils (%) (Auto) 1 % (0-3) Neutrophils # (Auto) 1.2 x10^3/uL (1.8-7.7) Lymphocytes # (Auto) 0.8 x10^3/uL (1.0-4.8) Monocytes # (Auto) 0.3 x10^3/uL (0.0-1.1) Eosinophils # (Auto) 0.2 x10^3/uL (0.0-0.7) Basophils # (Auto) 0.0 x10^3/uL (0.0-0.2) Prothrombin Time 14.7 SEC (11.7-14.0) Prothromb Time International Ratio 1.2 (0.8-1.1) Sodium Level 133 mmol/L (136-145) Potassium Level 4.9 mmol/L (3.5-5.1) Chloride Level 105 mmol/L (98-107) Carbon Dioxide Level 21 mmol/L (21-32) Anion Gap 7 (6-14) Blood Urea Nitrogen 34 mg/dL (8-26) Creatinine 1.5 mg/dL (0.7-1.3) Estimated GFR (Cockcroft-Gault) 48.2 BUN/Creatinine Ratio 23 (6-20) Glucose Level 104 mg/dL (70-99) Calcium Level 8.6 mg/dL (8.5-10.1) Total Bilirubin 0.6 mg/dL (0.2-1.0) Aspartate Amino Transf (AST/SGOT) 27 U/L (15-37) Alanine Aminotransferase (ALT/SGPT) 13 U/L (16-63) Alkaline Phosphatase 83 U/L (46-116) Total Protein 6.2 g/dL (6.4-8.2) Albumin 2.3 g/dL (3.4-5.0) Albumin/Globulin Ratio 0.6 (1.0-1.7) Lipase 208 U/L (73-393) VTE Prophylaxis Ordered VTE Prophylaxis Devices: Yes VTE Pharmacological Prophylaxi: No Assessment/Plan Assessment/Plan A/P: Intractable abdominal pain - possibly 2/2 umbilical hernia. low risk for SBP considering his pain was after paracentesis, no signs this was due to paracentesis. Consult general surgery. Reduction under mild sedation may be indicated given there is no high-grade obstruction. High risk surgical pt. Ascites - large volume stable. with paracentesis today. Repeat CBC in AM Acute Anemia - Hb 10.7. Low concern for GI bleed Cirrhosis, with repeated ascites, decompensation currently - GI to see Weakness and debility - will have PT/OT to see Thrombocytopenia - likely from liver disease, will monitor. He was on zyvox recently as well for his enterococcal UTI Umbilical rash - patient notes it is psoriasis FEN - Renal diet PPX - Thrombocytopenic, SCDs FULL CODE Dispo - admit for abdominal pain CHARLES EMERSON MD Aug 17, 2019 07:35
[2019-08-17] MEDS ORDERED: ALBUMIN HUMAN 25% 100 ML IV ONE ×2 (09:45→10:15)
[2019-08-17] MEDS ORDERED: ALBUMIN HUMAN 25% 50 ML IV ONE (09:45)
--- NOTE | 2019-08-17 15:06 | RAD ---
Procedure: Ultrasound guided paracentesis Clinical Indication: Adult male with recurrent abdominal ascites Sedation: Local anesthesia only Antibiotics: None Fluoro Time: None Contrast: Not applicable Sterility: The procedure was performed in its entirety using appropriate elements of sterile technique. Consent: The procedure was explained in its entirety to the patient or the patients designated pharmaceutical service representative by a member of the treatment team, including a discussion of the risks, benefits and commonly accepted alternatives to the procedure, as well as the expected consequences of no therapy whatsoever. Discussion of the risks included, but was not limited to, those that are most frequent and those that are rare but possibly severe or life-threatening, as well as the possibility of unforeseen complications. Technique and Findings: Following informed consent, the patient was prepped and draped in the usual sterile fashion. Ultrasound interrogation of the abdomen revealed abdominal ascites. A hard copy ultrasound image was recorded. 1% Lidocaine was used to achieve local anesthesia over the area of interest, and a 6 Upper Sorbian [id number] catheter was advanced into the peritoneal cavity under ultrasound guidance. 9500 cc of thin yellow ascites was then withdrawn. The catheter was removed and hemostasis was achieved with manual compression. Complications: No immediate Impression: 1. Ultrasound-guided paracentesis as described
[2019-08-17] MEDS ORDERED: CIPR250T30 PO (15:47)
--- NOTE | 2019-08-17 15:58 | PDOC3 ---
Discharge Summary Visit Information Date of Admission: Aug 17, 2019 Date of Discharge: Aug 17, 2019 Admitting Diagnosis: Ascites Final Diagnosis Problems Medical Problems: (1) Abdominal pain Status: Acute (2) Ascites Status: Acute (3) Thrombocytopenia Status: Acute Brief Hospital Course Allergies Allergies Coded Allergies Type Severity Reaction Last Updated Verified Penicillins Allergy Severe ANPHYLAXIS 05/30/18 Yes trovafloxacin Allergy Severe Anaphylaxis 05/30/18 Yes Influenza Virus Vaccines Allergy Intermediate 06/16/18 Yes Vital Signs Vital Signs Date Time Temp Pulse Resp B/P (MAP) Pulse Ox O2 Delivery O2 Flow Rate FiO2 08/17/19 15:00 98.0 84 16 114/68 (83) 99 Room Air 98.0 Lab Results Laboratory Tests Test 08/17/19 04:20 08/17/19 04:43 White Blood Count 2.5 x10^3/uL (4.0-11.0) Red Blood Count 2.83 x10^6/uL (4.30-5.70) Hemoglobin 8.4 g/dL (13.0-17.5) Hematocrit 25.1 % (39.0-53.0) Mean Corpuscular Volume 89 fL (79-100) Mean Corpuscular Hemoglobin 30 pg (25-35) Mean Corpuscular Hemoglobin Concent 34 g/dL (31-37) Red Cell Distribution Width 14.4 % (11.5-14.5) Platelet Count 120 x10^3/uL (140-400) Neutrophils (%) (Auto) 48 % (31-73) Lymphocytes (%) (Auto) 32 % (24-48) Monocytes (%) (Auto) 12 % (0-9) Eosinophils (%) (Auto) 7 % (0-3) Basophils (%) (Auto) 1 % (0-3) Neutrophils # (Auto) 1.2 x10^3/uL (1.8-7.7) Lymphocytes # (Auto) 0.8 x10^3/uL (1.0-4.8) Monocytes # (Auto) 0.3 x10^3/uL (0.0-1.1) Eosinophils # (Auto) 0.2 x10^3/uL (0.0-0.7) Basophils # (Auto) 0.0 x10^3/uL (0.0-0.2) Prothrombin Time 14.7 SEC (11.7-14.0) Prothromb Time International Ratio 1.2 (0.8-1.1) Sodium Level 133 mmol/L (136-145) Potassium Level 4.9 mmol/L (3.5-5.1) Chloride Level 105 mmol/L (98-107) Carbon Dioxide Level 21 mmol/L (21-32) Anion Gap 7 (6-14) Blood Urea Nitrogen 34 mg/dL (8-26) Creatinine 1.5 mg/dL (0.7-1.3) Estimated GFR (Cockcroft-Gault) 48.2 BUN/Creatinine Ratio 23 (6-20) Glucose Level 104 mg/dL (70-99) Calcium Level 8.6 mg/dL (8.5-10.1) Total Bilirubin 0.6 mg/dL (0.2-1.0) Aspartate Amino Transf (AST/SGOT) 27 U/L (15-37) Alanine Aminotransferase (ALT/SGPT) 13 U/L (16-63) Alkaline Phosphatase 83 U/L (46-116) Total Protein 6.2 g/dL (6.4-8.2) Albumin 2.3 g/dL (3.4-5.0) Albumin/Globulin Ratio 0.6 (1.0-1.7) Lipase 208 U/L (73-393) Laboratory Tests Test 08/17/19 04:20 08/17/19 04:43 White Blood Count 2.5 x10^3/uL (4.0-11.0) Red Blood Count 2.83 x10^6/uL (4.30-5.70) Hemoglobin 8.4 g/dL (13.0-17.5) Hematocrit 25.1 % (39.0-53.0) Mean Corpuscular Volume 89 fL (79-100) Mean Corpuscular Hemoglobin 30 pg (25-35) Mean Corpuscular Hemoglobin Concent 34 g/dL (31-37) Red Cell Distribution Width 14.4 % (11.5-14.5) Platelet Count 120 x10^3/uL (140-400) Neutrophils (%) (Auto) 48 % (31-73) Lymphocytes (%) (Auto) 32 % (24-48) Monocytes (%) (Auto) 12 % (0-9) Eosinophils (%) (Auto) 7 % (0-3) Basophils (%) (Auto) 1 % (0-3) Neutrophils # (Auto) 1.2 x10^3/uL (1.8-7.7) Lymphocytes # (Auto) 0.8 x10^3/uL (1.0-4.8) Monocytes # (Auto) 0.3 x10^3/uL (0.0-1.1) Eosinophils # (Auto) 0.2 x10^3/uL (0.0-0.7) Basophils # (Auto) 0.0 x10^3/uL (0.0-0.2) Prothrombin Time 14.7 SEC (11.7-14.0) Prothromb Time International Ratio 1.2 (0.8-1.1) Sodium Level 133 mmol/L (136-145) Potassium Level 4.9 mmol/L (3.5-5.1) Chloride Level 105 mmol/L (98-107) Carbon Dioxide Level 21 mmol/L (21-32) Anion Gap 7 (6-14) Blood Urea Nitrogen 34 mg/dL (8-26) Creatinine 1.5 mg/dL (0.7-1.3) Estimated GFR (Cockcroft-Gault) 48.2 BUN/Creatinine Ratio 23 (6-20) Glucose Level 104 mg/dL (70-99) Calcium Level 8.6 mg/dL (8.5-10.1) Total Bilirubin 0.6 mg/dL (0.2-1.0) Aspartate Amino Transf (AST/SGOT) 27 U/L (15-37) Alanine Aminotransferase (ALT/SGPT) 13 U/L (16-63) Alkaline Phosphatase 83 U/L (46-116) Total Protein 6.2 g/dL (6.4-8.2) Albumin 2.3 g/dL (3.4-5.0) Albumin/Globulin Ratio 0.6 (1.0-1.7) Lipase 208 U/L (73-393) Brief Hospital Course Mr Thompson is a 58yo M w/ PMHx alcoholic cirrhosis with multiple prior paracenteses who presents with diffuse abdominal pain he describes as 11/10 while yawning. He has a history of recurrent paracentesis weekly, had an 8.6L paracentesis in RUQ done at this morning with albumin infusion at the time. He has had progressive abdominal discomfort since having his paracentesis done. He has had some nausea, no vomiting, dizziness or lightheadedness. He denies any chest pain or shortness of breath. He denies any black or bloody stools. He tells me he takes daily "cipro" and Lasix as well. He states he did drive back here from [place] overnight last night. He states he only about 2 hours of sleep. He is requesting IV fentanyl currently. CT abdomen shows periumbilical hernia with no obstruction. It cannot be reduced in the ED. He has a periumbilical red scaly cool rash he notes is psoriasis INR 1.1, Platelets 102, Hb 8.4 WBC 2.5. No fevers To paracentesis with 9500 cc Problem list: Intractable abdominal pain - possibly 2/2 umbilical hernia. low risk for SBP considering his pain was after paracentesis, no signs this was due to paracentesis. Consult general surgery. Reduction under mild sedation may be indicated given there is no high-grade obstruction. High risk surgical pt. Ascites - large volume stable. with paracentesis today. Repeat CBC in AM Acute Anemia - Hb 10.7. Low concern for GI bleed Cirrhosis, with repeated ascites, decompensation currently - GI to see Weakness and debility - will have PT/OT to see Thrombocytopenia - likely from liver disease, will monitor. He was on zyvox recently as well for his enterococcal UTI Umbilical rash - patient notes it is psoriasis Greater than 30 minutes spent d/c Discharge Information Condition at Discharge: Improved Follow Up: Weeks (1) Disposition/Orders: D/C to Home Scheduled Ciprofloxacin Hcl (Cipro) 250 Mg Tablet, 1 TAB PO DAILY for Cirrhosis for 30 Days, #30 Ref 0 Prescribed by: CHARLES EMERSON MD on 08/17/19 1547 Furosemide (Lasix) 40 Mg Tablet, 1 TAB PO DAILY for ascites, #30 Ref 1 Prescribed by: AAMIR GREER on 08/20/18 0953 Rifaximin (Xifaxan) 550 Mg Tablet, 550 MG PO Q12HR for liver function MDD 1, #60 Ref 1 Prescribed by: ALEIDA VAUGHAN on 09/18/18 0901 Spironolactone (Aldactone) 25 Mg Tablet, 50 MG PO QODAY for ascites, #30 Prescribed by: AAMIR GREER on 08/20/18 0953 [Pantoprazole] 40 MG TABLET.DR, 40 MG PO DAILYAC for gerd MDD 1, #30 Prescribed by: ALEIDA VAUGHAN on 09/18/18 09 Scheduled PRN Lactulose (Lactulose) 20 Gm/30 Ml Solution, 20 GM PO PRN Q12HR PRN for CONSTIPATION MDD 1 for 30 Days Prescribed by: ALEIDA VAUGHAN on 09/18/18 0901 Tramadol Hcl (Tramadol Hcl) 50 Mg Tablet, 50 MG PO Q6HRS PRN for PAIN for 7 Days, #28 Prescribed by: AAMIR GREER on 09/09/18 1138 CHARLES EMERSON MD Aug 17, 2019 15:58
--- NOTE | 2019-08-17 15:58 | NUR ---
Pt left the unit at 1558 by ambulation via private vehicle. Pt IV removed with no complications. VSS. Discharge paperwork discussed and sent with pt.
== END 2019-08-17 16:02 | disposition home or self-care (01) ==
LOC: ER 02:28 → 5 SOUTH 05:15
PROVIDERS: ADMIT Internal Medicine; ATTEND Internal Medicine
DX: R18.8 Other ascites (principal); D69.6 Thrombocytopenia, unspecified; K74.60 Unspecified cirrhosis of liver; K21.9 Gastro-esophageal reflux disease without esophagitis; D64.9 Anemia, unspecified; N17.9 Acute kidney failure, unspecified; K76.9 Liver disease, unspecified; Z96.659 Presence of unspecified artificial knee joint; Z87.891 Personal history of nicotine dependence
CPT/HCPCS: 36415; 49083; 80053; 83690; 85025; 85610; 96365; 96366; 96375; 96376; 99285; G0378; G0379; J1200; J2405; J3010; P9046

== ENCOUNTER 2019-08-28 07:10 | Emergency (ER) | payer SELFPAY ==
[~2019-08-28] VITALS: Ht 172.7 cm; Wt 77.0 kg
[~2019-08-28 07:10] MED LIST changes: +CIPR250T30 PO
--- NOTE | 2019-08-28 07:33 | PHYS DOC ---
Past Medical History Past Medical History: Liver Disease, Other Additional Past Medical Histor: CELLULITIS,BORDERLINE HTN, ASCITES Past Surgical History: Other Additional Past Surgical Histo: Knee surgery, wrist surgery, HERNIA SX Smoking Status: Never Smoker Alcohol Use: Sober Drug Use: None Adult General Chief Complaint Chief Complaint: ABDOMINAL PAIN HPI HPI Patient is a 59-year-old male with a history of alcoholic cirrhosis, requiring recurrent paracentesis, presents to the emergency department for evaluation, feeling bloated and stating he needs another paracentesis. He denies any other complaints at this time. He states he had been getting weekly paracentesis at , but his Medicaid lapsed, and so he is having to go through the emergency d epartment. He denies any fevers, or any other new symptoms. He has not had any fever, nausea, or vomiting. There are no alleviating or exacerbating factors to her symptoms otherwise. The patient was hospitalized here for similar symptoms on June 16, and received paracentesis at that time. Review of Systems Review of Systems Constitutional: Denies fever or chills [] Eyes: Denies change in visual acuity, redness, or eye pain [] HENT: Denies nasal congestion or sore throat [] Respiratory: Denies cough or shortness of breath [] Cardiovascular:The patient denies any shortness of breath, chest pain, palpitations, or orthopnea [] GI: No additional information not addressed in HPI [] : Denies dysuria or hematuria [] Musculoskeletal: Denies back pain or joint pain [] Integument: Denies rash or skin lesions [] Neurologic: Denies headache, focal weakness or sensory changes [] Endocrine: Denies polyuria or polydipsia [] All other systems were reviewed and found to be within normal limits, except as documented in this note. Current Medications Current Medications Current Medications Medications (Trade) Dose Ordered Sig/Marc Start Time Stop Time Status Last Admin Dose Admin Albumin Human 50 ml @ 50 mls/hr 1X ONCE 08/28/19 10:15 08/28/19 11:14 Allergies Allergies Allergies Coded Allergies Type Severity Reaction Last Updated Verified Penicillins Allergy Severe ANPHYLAXIS 05/30/18 Yes trovafloxacin Allergy Severe Anaphylaxis 05/30/18 Yes Influenza Virus Vaccines Allergy Intermediate 06/16/18 Yes Physical Exam Physical Exam PHYSICAL EXAM: CONSTITUTIONAL: Well developed, well nourished HEAD: normocephalic, atraumatic EENT: PERRL, EOMI. Conjunctivae normal color, sclerae non-icteric; moist mucous membranes. NECK: Supple, non-tender; no meningismus. LUNGS: Lungs CTA, breathing even and unlabored. Normal air movement. HEART: Regular rate and rhythm, no murmur CHEST: No deformity; non-tender ABDOMEN: The abdomen is soft, the abdomen is distended, without any definite focal tenderness to palpation, rebound, guarding, no masses or bruits. EXTREM: Normal ROM; no deformity, no calf tenderness. Normal pulses palpable in all extremities. There is no pedal edema. SKIN: No rash; no diaphoresis NEURO: Alert; normal speech and cognition; CN's grossly intact; strength grossly intact without focal deficit. BACK: No CVA TTP. Current Patient Data Vital Signs Vital Signs Date Time Temp Pulse Resp B/P (MAP) Pulse Ox O2 Delivery O2 Flow Rate FiO2 08/28/19 10:11 89 15 127/88 (101) 96 Room Air 08/28/19 07:15 97.9 97.9 Lab Values Laboratory Tests Test 08/28/19 08:10 White Blood Count 1.9 x10^3/uL (4.0-11.0) *L Red Blood Count 3.17 x10^6/uL (4.30-5.70) L Hemoglobin 9.0 g/dL (13.0-17.5) L Hematocrit 27.2 % (39.0-53.0) L Mean Corpuscular Volume 86 fL (79-100) Mean Corpuscular Hemoglobin 28 pg (25-35) Mean Corpuscular Hemoglobin Concent 33 g/dL (31-37) Red Cell Distribution Width 13.4 % (11.5-14.5) Platelet Count 107 x10^3/uL (140-400) L Neutrophils (%) (Auto) 46 % (31-73) Lymphocytes (%) (Auto) 36 % (24-48) Monocytes (%) (Auto) 10 % (0-9) H Eosinophils (%) (Auto) 7 % (0-3) H Basophils (%) (Auto) 2 % (0-3) Neutrophils # (Auto) 0.9 x10^3/uL (1.8-7.7) L Lymphocytes # (Auto) 0.7 x10^3/uL (1.0-4.8) L Monocytes # (Auto) 0.2 x10^3/uL (0.0-1.1) Eosinophils # (Auto) 0.1 x10^3/uL (0.0-0.7) Basophils # (Auto) 0.0 x10^3/uL (0.0-0.2) Platelet Estimate Pending Prothrombin Time 14.9 SEC (11.7-14.0) H Prothrombin Time INR 1.2 (0.8-1.1) H Activated Partial Thromboplast Time 30 SEC (24-38) Sodium Level 138 mmol/L (136-145) Potassium Level 4.7 mmol/L (3.5-5.1) Chloride Level 106 mmol/L (98-107) Carbon Dioxide Level 24 mmol/L (21-32) Anion Gap 8 (6-14) Blood Urea Nitrogen 23 mg/dL (8-26) Creatinine 1.2 mg/dL (0.7-1.3) Estimated GFR (Cockcroft-Gault) 62.4 BUN/Creatinine Ratio 19 (6-20) Glucose Level 90 mg/dL (70-99) Calcium Level 8.4 mg/dL (8.5-10.1) L Total Bilirubin 0.4 mg/dL (0.2-1.0) Aspartate Amino Transferase (AST) 29 U/L (15-37) Alanine Aminotransferase (ALT) 14 U/L (16-63) L Alkaline Phosphatase 130 U/L (46-116) H Total Protein 6.6 g/dL (6.4-8.2) Albumin 2.3 g/dL (3.4-5.0) L Albumin/Globulin Ratio 0.5 (1.0-1.7) L Laboratory Tests 08/28/19 08:10 Laboratory Tests 08/28/19 08:10 EKG EKG [] Radiology/Procedures Radiology/Procedures [] Course & Med Decision Making Course & Med Decision Making Pertinent Labs and Imaging studies reviewed. (See chart for details) []10:30 AM: The patient's condition remains stable, he is feeling significantly better after greater than 9 L of ascites fluid drained by interventional radiology, albumin is infusing, per IR orders. The patient feels better and is ready to go home once his albumin infusion completed. Discussed return p recautions and the need for further outpatient follow-up. Dragon Disclaimer Dragon Disclaimer This electronic medical record was generated, in whole or in part, using a voice recognition dictation system. Departure Departure Impression: Primary Impression: Ascites Additional Impression: Liver cirrhosis Disposition: HOME, SELF-CARE Condition: STABLE Referrals: RAFAELA CARD MD (PCP) SUSAN LOUIS MD Patient Instructions: Ascites, Paracentesis Problem Qualifiers ANDREWS TORRES MD Aug 28, 2019 07:33
[2019-08-28 08:26] LABS: CALCIUM 8.4 mg/dL (8.5-10.1); CREATININE 1.2 mg/dL (0.7-1.3); GFR 62.4; POTASSIUM 4.7 mmol/L (3.5-5.1)
[2019-08-28 08:29] LABS: BASO % 2 % (0-3); EOS # 0.1 x10^3/uL (0.0-0.7); EOS % 7 % (0-3); HEMATOCRIT 27.2 % (39.0-53.0); LYMPH # 0.7 x10^3/uL (1.0-4.8); LYMPH % 36 % (24-48); MEAN CORPUSCULAR HEMOGLOBIN 28 pg (25-35); MEAN CORPUSCULAR HGB CONC 33 g/dL (31-37); MEAN CORPUSCULAR VOLUME 86 fL (79-100); MONO # 0.2 x10^3/uL (0.0-1.1); MONO % 10 % (0-9); NEUT # 0.9 x10^3/uL (1.8-7.7); NEUT % 46 % (31-73); PLATELET COUNT 107 x10^3/uL (140-400); RED BLOOD COUNT 3.17 x10^6/uL (4.30-5.70); RED CELL DISTRIBUTION WIDTH 13.4 % (11.5-14.5)
[2019-08-28 08:40] LABS: ALBUMIN 2.3 g/dL (3.4-5.0); ALBUMIN/GLOBULIN RATIO 0.5 (1.0-1.7); PROTHROMBIN TIME PATIENT 14.9 SEC (11.7-14.0); TOTAL BILIRUBIN 0.4 mg/dL (0.2-1.0); TOTAL PROTEIN 6.6 g/dL (6.4-8.2)
[2019-08-28 08:52] LABS: WHITE BLOOD COUNT 1.9 x10^3/uL (4.0-11.0)
[2019-08-28 09:24] VITALS: BP 112/79
[2019-08-28 09:39] VITALS: BP 119/76
[2019-08-28 09:54] VITALS: BP 114/70
[2019-08-28] MEDS ORDERED: ALBUMIN HUMAN 25% 100 ML IV ONE ×2 (10:00)
[2019-08-28] MEDS ORDERED: ALBUMIN HUMAN 25% 200 ML IV ONE (10:01)
[2019-08-28 10:11] VITALS: BP 127/88
[2019-08-28] MEDS ORDERED: ALBUMIN HUMAN 25% 50 ML IV ONE (10:15)
[2019-08-28 12:53] VITALS: BP 121/79
[2019-08-28 14:00] LABS: % EOS 8 % (0-5); % LYMPHS 39 % (24-48); % MONOS 9 % (0-10); % SEGS 44 % (35-66); PLT ESTIMATE DECREASED (ADEQUATE)
--- NOTE | 2019-08-28 15:04 | RAD ---
Ultrasound-guided paracentesis 08/28/2019 1:00 PM Procedure: The risks and benefits of the procedure were discussed the patient. Informed consent was obtained. A timeout procedure was performed. Sonographic evaluation of the abdomen was performed demonstrating ascites . The right lower quadrant was prepped and draped using maximum sterile barrier technique. 1% lidocaine without epinephrine was administered for local anesthesia. Real-time ultrasonographic guidance was used in passing a 5 [place] Yueh catheter into the fluid collection. 9.4 L of serous ascites was removed. The catheter was removed and pressure held to achieve hemostasis. A sterile dressing was applied. Impression: Successful ultrasound-guided paracentesis
== END 2019-08-28 12:54 | disposition home or self-care (01) ==
LOC: ER 07:10
DX: K74.60 Unspecified cirrhosis of liver (principal); R18.8 Other ascites; Z98.890 Other specified postprocedural states; Z88.0 Allergy status to penicillin; Z88.1 Allergy status to other antibiotic agents; Z88.7 Allergy status to serum and vaccine
CPT/HCPCS: 36415; 49083; 80053; 85007; 85025; 85610; 85730; 96365; 96366; 99285; P9046

== ENCOUNTER 2019-09-07 06:21 | Emergency (ER) | payer OTHER ==
[~2019-09-07] VITALS: Ht 172.7 cm; Wt 84.1 kg
--- NOTE | 2019-09-07 06:49 | PHYS DOC ---
Past Medical History Past Medical History: Liver Disease, Other Additional Past Medical Histor: CELLULITIS,BORDERLINE HTN, ASCITES Past Surgical History: Other Additional Past Surgical Histo: Knee surgery, wrist surgery, HERNIA SX Smoking Status: Never Smoker Alcohol Use: Sober Drug Use: None Adult General Chief Complaint Chief Complaint: ABDOMINAL PAIN HPI HPI Patient is a 59-year-old male with a history of alcoholic cirrhosis, requiring recurrent paracentesis, presents to the emergency department for evaluation, feeling bloated and stating he needs another paracentesis. He denies any other complaints at this time. He states he had been getting weekly paracentesis at , but his Medicaid lapsed, and so he is having to go through the emergency department. He denies any fevers, or any other new symptoms. He has not had any fever, nausea, or vomiting. There are no alleviating or exacerbating factors to his symptoms otherwise. He does not want to go to ER because the wait was always too long for him. Patient said he just got his medicaid back this week. Patient was seen here on 08/28/19 for the same problem. Patient had paracentesis done by IR and was discharged home from the ER then. Review of Systems Review of Systems Constitutional: Denies fever or chills [] Eyes: Denies change in visual acuity, redness, or eye pain [] HENT: Denies nasal congestion or sore throat [] Respiratory: Denies cough or shortness of breath [] Cardiovascular: No additional information not addressed in HPI [] GI: Positive for abdominal pain distention, NO nausea, vomiting, bloody stools or diarrhea [] : Denies dysuria or hematuria [] Musculoskeletal: Denies back pain or joint pain [] Integument: Denies rash or skin lesions [] Neurologic: Denies headache, focal weakness or sensory changes [] Endocrine: Denies polyuria or polydipsia [] All other systems were reviewed and found to be within normal limits, except as documented in this note. Current Medications Current Medications Current Medications Medications (Trade) Dose Ordered Sig/Marc Start Time Stop Time Status Last Admin Dose Admin Albuterol Sulfate (Ventolin Neb Soln) 10 mg 1X ONCE 09/07/19 09:30 09/07/19 09:31 DC Dextrose (Dextrose 50%-Water Syringe) 25 gm 1X ONCE 09/07/19 09:30 09/07/19 09:31 DC Insulin Human Regular (HumuLIN R VIAL) 10 unit 1X ONCE 09/07/19 09:30 09/07/19 09:31 DC Allergies Allergies Allergies Coded Allergies Type Severity Reaction Last Updated Verified Penicillins Allergy Severe ANPHYLAXIS 05/30/18 Yes trovafloxacin Allergy Severe Anaphylaxis 05/30/18 Yes Influenza Virus Vaccines Allergy Intermediate 06/16/18 Yes Physical Exam Physical Exam Constitutional: Well developed, well nourished, no acute distress, non-toxic appearance. [] HENT: Normocephalic, atraumatic, bilateral external ears normal, oropharynx moist, no oral exudates, nose normal. [] Eyes: PERRLA, EOMI, conjunctiva normal, no discharge. [] Neck: Normal range of motion, no tenderness, supple, no stridor. [] Cardiovascular:Heart rate regular rhythm, GRADE 2 SYSTOLIC murmur [] Lungs & Thorax: Bilateral breath sounds clear to auscultation [] Abdomen: Bowel sounds normal HYPERACTIVE, soft, no tenderness, no masses, no pulsatile masses, moderate distention. Skin: Warm, dry, no erythema, no rash. [] Back: No tenderness, no CVA tenderness. [] Extremities: No tenderness, no cyanosis, no clubbing, ROM intact, no edema. [] Neurologic: Alert and oriented X 3, normal motor function, normal sensory function, no focal deficits noted. [] Psychologic: Affect normal, judgement normal, mood normal. [] Current Patient Data Vital Signs Vital Signs Date Time Temp Pulse Resp B/P (MAP) Pulse Ox O2 Delivery O2 Flow Rate FiO2 09/07/19 09:00 100 16 147/110 (122) 97 Room Air 09/07/19 06:30 98.3 98.3 Lab Values Laboratory Tests Test 09/07/19 07:15 White Blood Count 1.8 x10^3/uL (4.0-11.0) *L Red Blood Count 2.85 x10^6/uL (4.30-5.70) L Hemoglobin 7.9 g/dL (13.0-17.5) L Hematocrit 23.7 % (39.0-53.0) L Mean Corpuscular Volume 83 fL (79-100) Mean Corpuscular Hemoglobin 28 pg (25-35) Mean Corpuscular Hemoglobin Concent 34 g/dL (31-37) Red Cell Distribution Width 13.8 % (11.5-14.5) Platelet Count 94 x10^3/uL (140-400) L Neutrophils (%) (Auto) 48 % (31-73) Lymphocytes (%) (Auto) 30 % (24-48) Monocytes (%) (Auto) 14 % (0-9) H Eosinophils (%) (Auto) 7 % (0-3) H Basophils (%) (Auto) 1 % (0-3) Neutrophils # (Auto) 0.9 x10^3/uL (1.8-7.7) L Lymphocytes # (Auto) 0.5 x10^3/uL (1.0-4.8) L Monocytes # (Auto) 0.3 x10^3/uL (0.0-1.1) Eosinophils # (Auto) 0.1 x10^3/uL (0.0-0.7) Basophils # (Auto) 0.0 x10^3/uL (0.0-0.2) Platelet Estimate Pending Prothrombin Time 14.5 SEC (11.7-14.0) H Prothrombin Time INR 1.2 (0.8-1.1) H Activated Partial Thromboplast Time 27 SEC (24-38) Sodium Level 132 mmol/L (136-145) L Potassium Level 5.6 mmol/L (3.5-5.1) H Chloride Level 102 mmol/L (98-107) Carbon Dioxide Level 25 mmol/L (21-32) Anion Gap 5 (6-14) L Blood Urea Nitrogen 30 mg/dL (8-26) H Creatinine 1.3 mg/dL (0.7-1.3) Estimated GFR (Cockcroft-Gault) 56.9 BUN/Creatinine Ratio 23 (6-20) H Glucose Level 100 mg/dL (70-99) H Calcium Level 8.0 mg/dL (8.5-10.1) L Total Bilirubin 0.4 mg/dL (0.2-1.0) Aspartate Amino Transferase (AST) 30 U/L (15-37) Alanine Aminotransferase (ALT) 17 U/L (16-63) Alkaline Phosphatase 112 U/L (46-116) Ammonia 31 mcmol/L (11-34) Total Protein 6.3 g/dL (6.4-8.2) L Albumin 2.2 g/dL (3.4-5.0) L Albumin/Globulin Ratio 0.5 (1.0-1.7) L Lipase 254 U/L (73-393) Ethyl Alcohol Level < 10 mg/dL (0-10) Laboratory Tests 09/07/19 07:15 Laboratory Tests 09/07/19 07:15 EKG EKG [] Radiology/Procedures Radiology/Procedures [] Course & Med Decision Making Course & Med Decision Making Pertinent Labs and Imaging studies reviewed. (See chart for details) AT 8 AM, discussed with Dr. Hood, interventional radiologist, agreed to perform paracentesis. He said all of his staffs are in meeting. He will have to do a schedued case first. Then he will arrange to have it done this AM. Patient was informed that he will not have the paracentesis after 9 am. At 935 am, intervention radiology nurse called over and ready for him to be brought over for the procedure but patient said want to leave now because he waited too long already. He has to go home to take care of his dog. He wanted to sign out AMA. He was awake, alert, oriented to time, place and person, competent to make medical decision. Dragon Disclaimer Dragon Disclaimer This electronic medical record was generated, in whole or in part, using a voice recognition dictation system. Departure Departure Impression: Primary Impression: Ascites Additional Impression: Hyperkalemia Disposition: AGAINST MEDICAL ADVICE Condition: STABLE Referrals: RAFAELA CARD MD (PCP) FOLLOW UP WITH YOUR DOCTOR TOMORROW. Problem Qualifiers ONELIA RYAN DO Sep 07, 2019 06:49
[2019-09-07 07:33] LABS: CREATININE 1.3 mg/dL (0.7-1.3); GFR 56.9; POTASSIUM 5.6 mmol/L (3.5-5.1)
[2019-09-07 07:39] LABS: ALBUMIN 2.2 g/dL (3.4-5.0); ALBUMIN/GLOBULIN RATIO 0.5 (1.0-1.7); TOTAL BILIRUBIN 0.4 mg/dL (0.2-1.0); TOTAL PROTEIN 6.3 g/dL (6.4-8.2)
[2019-09-07 07:42] LABS: BASO % 1 % (0-3); EOS # 0.1 x10^3/uL (0.0-0.7); EOS % 7 % (0-3); HEMATOCRIT 23.7 % (39.0-53.0); HEMOGLOBIN 7.9 g/dL (13.0-17.5); LYMPH # 0.5 x10^3/uL (1.0-4.8); LYMPH % 30 % (24-48); MEAN CORPUSCULAR HEMOGLOBIN 28 pg (25-35); MEAN CORPUSCULAR HGB CONC 34 g/dL (31-37); MEAN CORPUSCULAR VOLUME 83 fL (79-100); MONO # 0.3 x10^3/uL (0.0-1.1); MONO % 14 % (0-9); NEUT # 0.9 x10^3/uL (1.8-7.7); NEUT % 48 % (31-73); PLATELET COUNT 94 x10^3/uL (140-400); RED BLOOD COUNT 2.85 x10^6/uL (4.30-5.70); RED CELL DISTRIBUTION WIDTH 13.8 % (11.5-14.5)
[2019-09-07 07:44] LABS: WHITE BLOOD COUNT 1.8 x10^3/uL (4.0-11.0)
[2019-09-07 07:49] LABS: PROTHROMBIN TIME PATIENT 14.5 SEC (11.7-14.0)
[2019-09-07 09:00] VITALS: BP 147/110
[2019-09-07] MEDS ORDERED: DEXTROSE 50% 25 GM / 50ML DISP.SYRIN. IV ONE (09:30)
[2019-09-07] MEDS ORDERED: ALBUTEROL SULFATE 2.5 MG/3 ML NEBU. CONT NEB ONE (09:30)
[2019-09-07] MEDS ORDERED: INSULIN REGULAR 100 UNIT/ML 3ML VIAL. IV ONE (09:30)
[2019-09-07 10:58] LABS: % EOS 8 % (0-5); % LYMPHS 28 % (24-48); % MONOS 9 % (0-10); % SEGS 55 % (35-66)
[2019-09-07 10:59] LABS: PLT ESTIMATE DECREASED (ADEQUATE)
== END 2019-09-07 09:48 | disposition left against medical advice (07) ==
LOC: ER 06:21
DX: R18.8 Other ascites (principal); E87.5 Hyperkalemia; Z88.0 Allergy status to penicillin; Z88.1 Allergy status to other antibiotic agents; Z88.7 Allergy status to serum and vaccine
CPT/HCPCS: 36415; 80053; 82140; 83690; 85007; 85025; 85610; 85730; 99285; G0480

== ENCOUNTER 2020-02-09 20:50 | Inpatient (IN) | payer OTHER ==
[~2020-02-09] VITALS: Ht 172.7 cm; Wt 75.6 kg
--- NOTE | 2020-02-09 22:46 | PHYS DOC ---
Past Medical History Past Medical History: Liver Disease, Other Additional Past Medical Histor: CELLULITIS,BORDERLINE HTN, ASCITES Past Surgical History: Other Additional Past Surgical Histo: Knee surgery, wrist surgery, HERNIA SX Smoking Status: Never Smoker Alcohol Use: Sober Drug Use: None General Adult EDM: Chief Complaint: ABDOMINAL PAIN HPI: HPI: Patient is a 59 year old male who presents with generalized abdominal pain. Patient states that he had a paracentesis done in the right lateral abdominal wall at about 930 this morning. Around 10:00 when he got home he started having pain in the epigastrium. He reports this is similar to what is he felt when he had a perforation the last time. At least that is what he is telling me. He denies any alcohol intake. He reports he was doing well did not have any troubles prior to the procedure. He did complain of some chills but denied fever, cough, chest pain or shortness of breath. He does report it does hurt to breathe. He describes the pain as constant, sharp and severe. It does not radiate. Patient with nausea without vomiting, multiple episodes of watery diarrhea although now improving. No change in urination. Review of Systems: Review of Systems: Constitutional: Denies fever or chills. [] Eyes: Denies change in visual acuity. [] HENT: Denies nasal congestion or sore throat. [] Respiratory: Denies cough or shortness of breath. [] Cardiovascular: Denies chest pain or edema. [] GI: See HPI [] : Denies dysuria. [] Musculoskeletal: Denies back pain or joint pain. [] Integument: Denies rash. [] Neurologic: Denies headache, focal weakness or sensory changes. [] Endocrine: Denies polyuria or polydipsia. [] Lymphatic: Denies swollen glands. [] Psychiatric: Denies depression or anxiety. [] Heart Score: Risk Factors: Risk Factors: DM, Current or recent (<one month) smoker, HTN, HLP, family history of CAD, obesity. Risk Scores: Score 0 - 3: 2.5% MACE over next 6 weeks - Discharge Home Score 4 - 6: 20.3% MACE over next 6 weeks - Admit for Clinical Observation Score 7 - 10: 72.7% MACE over next 6 weeks - Early Invasive Strategies Allergies: Allergies: Allergies Coded Allergies Type Severity Reaction Last Updated Verified Penicillins Allergy Severe ANPHYLAXIS 05/30/18 Yes trovafloxacin Allergy Severe Anaphylaxis 05/30/18 Yes Influenza Virus Vaccines Allergy Intermediate 06/16/18 Yes Physical Exam: PE: Constitutional: Well developed, well nourished, no acute distress, non-toxic appearance. [] HENT: Normocephalic, atraumatic, bilateral external ears normal, oropharynx moist, no oral exudates, nose normal. [] Eyes: PERRLA, EOMI, conjunctiva normal, no discharge. [] Neck: Normal range of motion, no tenderness, supple, no stridor. [] Cardiovascular: Tachycardiac and regular, no murmur, no shift of PMI, pulses 2 out of 2 dorsalis pedis bilaterally [] Lungs & Thorax: Bilateral breath sounds clear to auscultation [] Abdomen: Bowel sounds normal, soft, tenderness diffusely, voluntary guarding, no rebound, no masses, no pulsatile masses. Positive fluid wave [] Skin: Warm, dry, no erythema, no rash. [] Back: No tenderness, no CVA tenderness. [] Extremities: No tenderness, no cyanosis, no clubbing, ROM intact, 2 mm pitting edema bilaterally [] Neurologic: Alert and oriented X 3, normal motor function, normal sensory function, no focal deficits noted. [] Psychologic: Affect normal, judgement normal, mood normal. [] EKG: EKG: [] Radiology/Procedures: Radiology/Procedures: [] Course & Med Decision Making: Course & Med Decision Making Pertinent Labs and Imaging studies reviewed. (See chart for details) 0105-patient was seen and examined. I discussed all laboratory and CT data with the patient. The patient was amenable to admission. NG tube was placed for s mall bowel obstruction. I started him on aztreonam and Flagyl for presumed colitis that is bacterial. I discussed the case with the general surgeon Dr. Fleming and then have admitted the patient to the hospitalist. [] Nelson Disclaimer: Nelson Disclaimer: This electronic medical record was generated, in whole or in part, using a voice recognition dictation system. Departure Departure Impression: Primary Impression: Small bowel obstruction Additional Impressions: Generalized abdominal pain Acute colitis Cirrhosis of liver Qualified Codes: K70.31 - Alcoholic cirrhosis of liver with ascites Disposition: 09 ADMITTED INPATIENT Condition: IMPROVED Referrals: RAFAELA CARD MD (PCP) Justicifation of Admission Dx: Justifications for Admission: Justification of Admission Dx: Yes Comments: Small bowel obstruction BHARATHI FLETCHER MD Feb 09, 2020 22:46
[2020-02-09 22:53] LABS: BILIRUBIN,URINE SMALL (NEG); CLARITY,URINE CLEAR; COLOR,URINE AMBER; NITRITE,URINE NEGATIVE (NEG); PROTEIN,URINE 30 mg/dL (NEG-TRACE); UROBILINOGEN,URINE 0.2 mg/dL (0.2 mg/dL)
[2020-02-09 22:54] LABS: BASO % 0 % (0-3); EOS % 0 % (0-3); HEMATOCRIT 29.6 % (39.0-53.0); HEMOGLOBIN 9.7 g/dL (13.0-17.5); LYMPH # 0.2 x10^3/uL (1.0-4.8); LYMPH % 4 % (24-48); MEAN CORPUSCULAR HEMOGLOBIN 27 pg (25-35); MEAN CORPUSCULAR HGB CONC 33 g/dL (31-37); MEAN CORPUSCULAR VOLUME 82 fL (79-100); MONO # 0.2 x10^3/uL (0.0-1.1); MONO % 4 % (0-9); NEUT % 92 % (31-73); PLATELET COUNT 103 x10^3/uL (140-400); RED BLOOD COUNT 3.63 x10^6/uL (4.30-5.70); RED CELL DISTRIBUTION WIDTH 18.2 % (11.5-14.5); WHITE BLOOD COUNT 5.4 x10^3/uL (4.0-11.0)
[2020-02-09 22:58] LABS: RBC,URINE >40 /HPF (0-2)
[2020-02-09 22:59] LABS: BACTERIA,URINE 0 /HPF (0-FEW); HYALINE CASTS, URINE MANY /HPF
[2020-02-09 23:00] LABS: PROTHROMBIN TIME PATIENT 15.3 SEC (11.7-14.0)
[2020-02-09] MEDS ORDERED: fentaNYL PF VIAL 100 MCG/2 ML VIAL IVP ONE (23:00)
[2020-02-09 23:28] LABS: % BANDS 29 % (0-9); % LYMPHS 6 % (24-48); % MONOS 4 % (0-10); % SEGS 61 % (35-66)
[2020-02-09 23:29] LABS: ANISOCYTOSIS SLIGHT; PLT ESTIMATE DECREASED (ADEQUATE)
[2020-02-09 23:30] LABS: TOXIC VACUOLATION SLIGHT
[2020-02-09 23:31] LABS: CALCIUM 7.5 mg/dL (8.5-10.1); CREATININE 1.5 mg/dL (0.7-1.3); GFR 48.2; POTASSIUM 4.2 mmol/L (3.5-5.1)
[2020-02-09 23:37] LABS: ALBUMIN 2.1 g/dL (3.4-5.0); ALBUMIN/GLOBULIN RATIO 0.6 (1.0-1.7); TOTAL BILIRUBIN 0.9 mg/dL (0.2-1.0); TOTAL PROTEIN 5.4 g/dL (6.4-8.2)
[2020-02-10] MEDS ORDERED: CONTRAST GIVEN. MC PRN (00:15)
[2020-02-10] MEDS ORDERED: IOHEXOL 300 MG/ML 100ML VIAL. IV ONE (00:30)
--- NOTE | 2020-02-10 00:39 | RAD ---
CT abdomen and pelvis with contrast PQRS statement: CT scans at this facility use dose reduction including either automated exposure control, iterative reconstructions, and /or weight based radiation dosing via mA and kV modification when appropriate to reduce radiation dose to as low as reasonably achievable. Contrast: 75 mL Omnipaque 300 intravenous contrast. HISTORY: Generalized abdominal pain. History of hernia surgery. Recent paracentesis earlier today. COMPARISON: CT abdomen and pelvis July 17, 2019. Abdomen findings: Coronary calcified plaque. Exuberant bilateral gynecomastia. Soft tissue emphysema at the right lateral abdominal wall musculature and miniscule volume of pneumoperitoneum related to history of paracentesis earlier today prior to this CT scan. There is a moderate volume of abdominal ascites. Volume of ascites similar the prior study. Liver cirrhosis. Tiny 4 mm hypodensity liver dome is stable too small to characterize. Gallstones. Spleen size upper limits of normal measuring 13 cm. Pancreas, adrenal glands, kidneys unremarkable. Subcentimeter right renal upper pole hypodensity too small to characterize most likely small cysts, stable. Gallstones. Portal vein and mesenteric vein patent enhancement. Mild gastroesophageal varices are noted. There are prominent varices at the right upper quadrant bridging between the IVC and mesenteric veins and gastric pull-up veins. There is prominent distention with air-fluid levels of the proximal to mid small bowel at the mid abdomen maximum diameter 3.9 cm whereas the more distal small bowel is relatively collapsed suggest small bowel obstruction. Appendix is negative. There is wall thickening throughout the large bowel and surrounding edema likely colitis. There is edema stranding of the omentum similar the prior exam. Mild abdominal wall flank soft tissue edema. Lung bases and bones are unremarkable. Pelvis findings: Pelvic ascites stable. Bladder decompressed. Prostate and bones are unremarkable. Rectosigmoid wall thickening and edema. IMPRESSION: 1. Small bowel obstruction with distention of the proximal small bowel with air-fluid levels and collapse of the distal small bowel. This could be due to an adhesion or small bowel stricture. 2. Moderate ascites similar in volume to prior imaging. Small volume of pneumoperitoneum and soft tissue emphysema at the right lateral abdominal wall related to recent paracentesis earlier today. 3. Liver cirrhosis and portal hypertension with numerous varices as described above. 4. Probable colitis with diffuse wall thickening and edema throughout the large bowel. 5. Cholelithiasis. Electronically signed by: Natanael Walker MD (02/10/2020 12:36 AM) [facility]
[2020-02-10] MEDS ORDERED: AZTREONAM IV Push 2 GM VIAL. IVP ONE (01:30)
[2020-02-10] MEDS ORDERED: IV NORMAL SALINE 1000ML BAG 1,000 ML IV SCH (01:30)
[2020-02-10] MEDS: MORPHINE SULFATE 4 MG/ML VIAL. IV PRN ×3 (03:11→12:41)
--- NOTE | 2020-02-10 03:30 | NUR ---
ADMIT NOTE The patient, MARQUISE BAREKR JR, 59 y/o, M admitted by AAMIR GREER MD, was given written information regarding hospital policies, unit procedures and contact persons. Patient A&O, afebrile and VSS upon admission. Patient refusing NG tube insertion in ED and also at bedside despite education. Patient's plan of care reviewed and allergies/home medications verified; valuables checked and left in room with patient. Patient rating pain at 10/10 and requesting, "...fentanyl every 3 hours and morphine every 4 hours"; orders for morphine from ED on eMAR and dose administered. Patient orientated to room, bed in lowest/locked position, call light within reach and no other needs voiced at this time.
[2020-02-10 03:31] VITALS: BP 99/65
--- NOTE | 2020-02-10 04:22 | NUR ---
Patient's IV alarming. Patient found at side of bed and IV found to be occluded d/t patient attempting to clamp IV and detach the line from his IV site to use the bathroom. Patient stated, "...I just don't want to drag this with me to the bathroom". This RN explained to patient that he is not permitted to disconnect and reconnect his own IV tubing when he wants to use the restroom; patient educated on safety concerns and encouraged to use call light for assistance with IV tubing in the future. Pt verbally agreed and no other needs voiced at this time.
[2020-02-10 07:59] VITALS: BP 103/71
--- NOTE | 2020-02-10 08:56 | PDOC2 ---
CONSULT Date of Consult Date of Consult DATE: 02/10/20 TIME: 08:53 Reason for Consult Reason for Consult: Abdominal pain Referring Physician Referring Physician: Americo Identification/Chief Complaint Chief Complaint Abdominal pain after paracentesis Source Source: Chart review, Patient History of Present Illness Reason for Visit: 59-year-old male with known liver cirrhosis needing paracentesis had a paracentesis yesterday after his paracentesis he developed severe abdominal pain and abdominal distention. He does state that yesterday he had several bowel movements all liquid in nature continues to have generalized abdominal pain. Denies any nausea vomiting fever or chills. CT scan shows small amount of free air likely secondary to his paracentesis some dilated loops of small bowel as well as diffuse thickening of the colon consistent with colitis. Patient does state that he takes Cipro on a regular basis secondary to colitis but has not been taking it recently. Past Medical History Cardiovascular: No pertinent hx Pulmonary: No pertinent hx GI: GERD, Peptic Ulcer disease Heme/Onc: Anemia NOS Hepatobiliary: Cirrhosis, Other Renal/: Acute renal failure Past Surgical History Past Surgical History: Total knee replacement, Other Family History Family History: Hypertension Social History ALCOHOL: none Drugs: None Lives: with Family Current Problem List Problem List Problems Medical Problems: (1) Acute colitis Status: Acute (2) Cirrhosis of liver Status: Acute (3) Generalized abdominal pain Status: Acute (4) Small bowel obstruction Status: Acute Current Medications Current Medications Current Medications Fentanyl Citrate (Fentanyl 2ml Vial) 50 mcg 1X ONCE IVP Last administered on 02/09/20at 23:27; Start 02/09/20 at 23:00; Stop 02/09/20 at 23:01; Status DC Iohexol (Omnipaque 300 Mg/ml) 75 ml 1X ONCE IV Last administered on 02/10/20at 00:21; Start 02/10/20 at 00:30; Stop 02/10/20 at 00:31; Status DC Info (CONTRAST GIVEN -- Rx MONITORING) 1 each PRN DAILY PRN MC SEE COMMENTS; Start 02/10/20 at 00:15; Stop 02/12/20 at 00:14 Metronidazole 100 ml @ 100 mls/hr 1X ONCE IV Last administered on 02/10/20at 01:55; Start 02/10/20 at 01:30; Stop 02/10/20 at 02:29; Status DC Aztreonam (Azactam) 2 gm 1X ONCE IVP Last administered on 02/10/20at 01:56; Start 02/10/20 at 01:30; Stop 02/10/20 at 01:31; Status DC Morphine Sulfate (Morphine Sulfate) 4 mg PRN Q2HR PRN IV SEVERE PAIN 7-10 Last administered on 02/10/20at 08:38; Start 02/10/20 at 01:00; Stop 02/11/20 at 00:59 Sodium Chloride 1,000 ml @ 75 mls/hr [id number] IV Last administered on 02/10/20at 01:56; Start 02/10/20 at 01:30; Stop 02/11/20 at 01:29 Active Scripts Active Cipro (Ciprofloxacin Hcl) 250 Mg Tablet 1 Tab PO DAILY 30 Days [Pantoprazole] 40 MG Tablet.dr 40 Mg PO DAILYAC MDD 1 Lactulose 20 Gm/30 Ml Solution 20 Gm PO PRN Q12HR PRN MDD 1 30 Days Xifaxan (Rifaximin) 550 Mg Tablet 550 Mg PO Q12HR MDD 1 Tramadol Hcl 50 Mg Tablet 50 Mg PO Q6HRS PRN 7 Days Lasix (Furosemide) 40 Mg Tablet 1 Tab PO DAILY Aldactone (Spironolactone) 25 Mg Tablet 50 Mg PO QODAY Allergies Allergies: Coded Allergies: Penicillins (Verified Allergy, Severe, ANPHYLAXIS, 05/30/18) trovafloxacin (Verified Allergy, Severe, Anaphylaxis, 05/30/18) Anaphylactic Influenza Virus Vaccines (Verified Allergy, Intermediate, 06/16/18) ROS Gastrointestinal: Yes Abdominal Pain, Yes Diarrhea Physical Exam General: Alert, Oriented X3, Cooperative, mild distress HEENT: Atraumatic Lungs: Clear to auscultation, Normal air movement Heart: Regular rate, No murmurs Abdomen: Normal bowel sounds, Soft, Other (Mildly distended diffusely tender mid abdomen on palpation no peritoneal signs) Extremities: No edema Skin: Other (Multiple skin lesions) Neuro: Normal speech Psych/Mental Status: Mental status NL Vitals VITALS Vital Signs Date Time Temp Pulse Resp B/P (MAP) Pulse Ox O2 Delivery O2 Flow Rate FiO2 02/10/20 08:38 16 Room Air 02/10/20 03:31 98.8 102 99/65 (76) 100 98.8 Labs Labs Laboratory Tests Test 02/09/20 22:02 02/09/20 23:19 White Blood Count 5.4 x10^3/uL (4.0-11.0) Red Blood Count 3.63 x10^6/uL (4.30-5.70) Hemoglobin 9.7 g/dL (13.0-17.5) Hematocrit 29.6 % (39.0-53.0) Mean Corpuscular Volume 82 fL (79-100) Mean Corpuscular Hemoglobin 27 pg (25-35) Mean Corpuscular Hemoglobin Concent 33 g/dL (31-37) Red Cell Distribution Width 18.2 % (11.5-14.5) Platelet Count 103 x10^3/uL (140-400) Neutrophils (%) (Auto) 92 % (31-73) Lymphocytes (%) (Auto) 4 % (24-48) Monocytes (%) (Auto) 4 % (0-9) Eosinophils (%) (Auto) 0 % (0-3) Basophils (%) (Auto) 0 % (0-3) Neutrophils # (Auto) 5.0 x10^3/uL (1.8-7.7) Lymphocytes # (Auto) 0.2 x10^3/uL (1.0-4.8) Monocytes # (Auto) 0.2 x10^3/uL (0.0-1.1) Eosinophils # (Auto) 0.0 x10^3/uL (0.0-0.7) Basophils # (Auto) 0.0 x10^3/uL (0.0-0.2) Segmented Neutrophils % 61 % (35-66) Band Neutrophils % 29 % (0-9) Lymphocytes % 6 % (24-48) Monocytes % 4 % (0-10) Toxic Vacuolation Slight Platelet Estimate Decreased (ADEQUATE) Anisocytosis Slight Prothrombin Time 15.3 SEC (11.7-14.0) Prothromb Time International Ratio 1.3 (0.8-1.1) Urine Collection Type Unknown Urine Color Milagros Urine Clarity Clear Urine pH 5.0 (<5.0-8.0) Urine Specific [place] 1.015 (1.000-1.030) Urine Protein 30 mg/dL (NEG-TRACE) Urine Glucose (UA) Negative mg/dL (NEG) Urine Ketones (Stick) Negative mg/dL (NEG) Urine Blood Large (NEG) Urine Nitrite Negative (NEG) Urine Bilirubin Small (NEG) Urine Urobilinogen Dipstick 0.2 mg/dL (0.2 mg/dL) Urine Leukocyte Esterase Negative (NEG) Urine RBC >40 /HPF (0-2) Urine WBC 1-4 /HPF (0-4) Urine Bacteria 0 /HPF (0-FEW) Urine Hyaline Casts Many /HPF Urine Mucus Mod /LPF Sodium Level 136 mmol/L (136-145) Potassium Level 4.2 mmol/L (3.5-5.1) Chloride Level 105 mmol/L (98-107) Carbon Dioxide Level 21 mmol/L (21-32) Anion Gap 10 (6-14) Blood Urea Nitrogen 26 mg/dL (8-26) Creatinine 1.5 mg/dL (0.7-1.3) Estimated GFR (Cockcroft-Gault) 48.2 BUN/Creatinine Ratio 17 (6-20) Glucose Level 121 mg/dL (70-99) Lactic Acid Level 1.3 mmol/L (0.4-2.0) Calcium Level 7.5 mg/dL (8.5-10.1) Total Bilirubin 0.9 mg/dL (0.2-1.0) Aspartate Amino Transf (AST/SGOT) 27 U/L (15-37) Alanine Aminotransferase (ALT/SGPT) 12 U/L (16-63) Alkaline Phosphatase 55 U/L (46-116) Total Protein 5.4 g/dL (6.4-8.2) Albumin 2.1 g/dL (3.4-5.0) Albumin/Globulin Ratio 0.6 (1.0-1.7) Lipase 38 U/L (73-393) Ethyl Alcohol Level < 10 mg/dL (0-10) Laboratory Tests Test 02/09/20 22:02 02/09/20 23:19 White Blood Count 5.4 x10^3/uL (4.0-11.0) Red Blood Count 3.63 x10^6/uL (4.30-5.70) Hemoglobin 9.7 g/dL (13.0-17.5) Hematocrit 29.6 % (39.0-53.0) Mean Corpuscular Volume 82 fL (79-100) Mean Corpuscular Hemoglobin 27 pg (25-35) Mean Corpuscular Hemoglobin Concent 33 g/dL (31-37) Red Cell Distribution Width 18.2 % (11.5-14.5) Platelet Count 103 x10^3/uL (140-400) Neutrophils (%) (Auto) 92 % (31-73) Lymphocytes (%) (Auto) 4 % (24-48) Monocytes (%) (Auto) 4 % (0-9) Eosinophils (%) (Auto) 0 % (0-3) Basophils (%) (Auto) 0 % (0-3) Neutrophils # (Auto) 5.0 x10^3/uL (1.8-7.7) Lymphocytes # (Auto) 0.2 x10^3/uL (1.0-4.8) Monocytes # (Auto) 0.2 x10^3/uL (0.0-1.1) Eosinophils # (Auto) 0.0 x10^3/uL (0.0-0.7) Basophils # (Auto) 0.0 x10^3/uL (0.0-0.2) Segmented Neutrophils % 61 % (35-66) Band Neutrophils % 29 % (0-9) Lymphocytes % 6 % (24-48) Monocytes % 4 % (0-10) Toxic Vacuolation Slight Platelet Estimate Decreased (ADEQUATE) Anisocytosis Slight Prothrombin Time 15.3 SEC (11.7-14.0) Prothromb Time International Ratio 1.3 (0.8-1.1) Urine Collection Type Unknown Urine Color Milagros Urine Clarity Clear Urine pH 5.0 (<5.0-8.0) Urine Specific [place] 1.015 (1.000-1.030) Urine Protein 30 mg/dL (NEG-TRACE) Urine Glucose (UA) Negative mg/dL (NEG) Urine Ketones (Stick) Negative mg/dL (NEG) Urine Blood Large (NEG) Urine Nitrite Negative (NEG) Urine Bilirubin Small (NEG) Urine Urobilinogen Dipstick 0.2 mg/dL (0.2 mg/dL) Urine Leukocyte Esterase Negative (NEG) Urine RBC >40 /HPF (0-2) Urine WBC 1-4 /HPF (0-4) Urine Bacteria 0 /HPF (0-FEW) Urine Hyaline Casts Many /HPF Urine Mucus Mod /LPF Sodium Level 136 mmol/L (136-145) Potassium Level 4.2 mmol/L (3.5-5.1) Chloride Level 105 mmol/L (98-107) Carbon Dioxide Level 21 mmol/L (21-32) Anion Gap 10 (6-14) Blood Urea Nitrogen 26 mg/dL (8-26) Creatinine 1.5 mg/dL (0.7-1.3) Estimated GFR (Cockcroft-Gault) 48.2 BUN/Creatinine Ratio 17 (6-20) Glucose Level 121 mg/dL (70-99) Lactic Acid Level 1.3 mmol/L (0.4-2.0) Calcium Level 7.5 mg/dL (8.5-10.1) Total Bilirubin 0.9 mg/dL (0.2-1.0) Aspartate Amino Transf (AST/SGOT) 27 U/L (15-37) Alanine Aminotransferase (ALT/SGPT) 12 U/L (16-63) Alkaline Phosphatase 55 U/L (46-116) Total Protein 5.4 g/dL (6.4-8.2) Albumin 2.1 g/dL (3.4-5.0) Albumin/Globulin Ratio 0.6 (1.0-1.7) Lipase 38 U/L (73-393) Ethyl Alcohol Level < 10 mg/dL (0-10) Assessment/Plan Assessment/Plan Likely ileus secondary to colitis passing stool Continue medical management of his colitis Advance diet to clear liquids as tolerated MARQUISE ALONZO MD Feb 10, 2020 08:56
[2020-02-10 11:59] VITALS: BP 103/71
--- NOTE | 2020-02-10 12:25 | PDOC1 ---
History and Physical Date of Admission Date of Admission DATE: 02/10/20 TIME: 12:25 History of Present Illness History of Present Illness MR. Thompson, is a 59 year old male who presents with generalized abdominal pain. Well known to me from prior admits, poor prognosis and poor care and compliance previosuly He had a paracentesis yesterday, then had acute and severe pain in the epigastrium. pain 8/10, and worse with deep breaths, but in abd only he was worried about pain similar to his prior perforation. He reports he was doing well did not have any troubles prior to the procedure. He did complain of some chills but denied fever, cough, chest pain or shortness of breath He describes the pain as constant, sharp and severe. + nausea without vomiting, Past Medical History Cardiovascular: No pertinent hx Pulmonary: No pertinent hx GI: GERD, Peptic Ulcer disease, Other (alcohol liver disease) Heme/Onc: Anemia NOS Hepatobiliary: Cirrhosis, Other Psych: Addictions Renal/: Acute renal failure Past Surgical History Past Surgical History: Total knee replacement, Other Family History Family History: Hypertension Social History ALCOHOL: none Drugs: None Current Problem List Problem List Problems Medical Problems: (1) Acute colitis Status: Acute (2) Cirrhosis of liver Status: Acute (3) Generalized abdominal pain Status: Acute (4) Small bowel obstruction Status: Acute Current Medications Current Medications Current Medications Fentanyl Citrate (Fentanyl 2ml Vial) 50 mcg 1X ONCE IVP Last administered on 02/09/20at 23:27; Start 02/09/20 at 23:00; Stop 02/09/20 at 23:01; Status DC Iohexol (Omnipaque 300 Mg/ml) 75 ml 1X ONCE IV Last administered on 02/10/20at 00:21; Start 02/10/20 at 00:30; Stop 02/10/20 at 00:31; Status DC Info (CONTRAST GIVEN -- Rx MONITORING) 1 each PRN DAILY PRN MC SEE COMMENTS; Start 02/10/20 at 00:15; Stop 02/12/20 at 00:14 Metronidazole 100 ml @ 100 mls/hr 1X ONCE IV Last administered on 02/10/20at 01:55; Start 02/10/20 at 01:30; Stop 02/10/20 at 02:29; Status DC Aztreonam (Azactam) 2 gm 1X ONCE IVP Last administered on 02/10/20at 01:56; Start 02/10/20 at 01:30; Stop 02/10/20 at 01:31; Status DC Morphine Sulfate (Morphine Sulfate) 4 mg PRN Q2HR PRN IV SEVERE PAIN 7-10 Last administered on 02/10/20at 08:38; Start 02/10/20 at 01:00; Stop 02/11/20 at 00:59 Sodium Chloride 1,000 ml @ 75 mls/hr [id number] IV Last administered on 02/10/20at 01:56; Start 02/10/20 at 01:30; Stop 02/11/20 at 01:29 Active Scripts Active Cipro (Ciprofloxacin Hcl) 250 Mg Tablet 1 Tab PO DAILY 30 Days [Pantoprazole] 40 MG Tablet.dr 40 Mg PO DAILYAC MDD 1 Lactulose 20 Gm/30 Ml Solution 20 Gm PO PRN Q12HR PRN MDD 1 30 Days Xifaxan (Rifaximin) 550 Mg Tablet 550 Mg PO Q12HR MDD 1 Tramadol Hcl 50 Mg Tablet 50 Mg PO Q6HRS PRN 7 Days Lasix (Furosemide) 40 Mg Tablet 1 Tab PO DAILY Aldactone (Spironolactone) 25 Mg Tablet 50 Mg PO QODAY Allergies Allergies: Coded Allergies: Penicillins (Verified Allergy, Severe, ANPHYLAXIS, 05/30/18) trovafloxacin (Verified Allergy, Severe, Anaphylaxis, 05/30/18) Anaphylactic Influenza Virus Vaccines (Verified Allergy, Intermediate, 06/16/18) ROS General: YES: Fatigue PSYCHOLOGICAL ROS: YES: Anxiety, Irritablity, Memory difficulties, Sleep disturbances; No: Behavioral Disorder, Concentration difficultie, Decreased libido, Depression, Disorientation, Hallucinations, Hostility, Mood Swings, Obsessive thoughts, Suicidal ideation, Other HEENT: No: Heacaches, Visual Changes, Hearing change, Nasal congestion, Nasal discharge, Oral lesions, Sinus pain, Sore Throat, Epistaxis, Sneezing, Snoring, Tinnitus, Vertigo, Vocal changes, Other Respiratory: No: Cough, Hemoptysis, Orthopnea, Pleuritic Pain, Shortness of breath, SOB with excertion, Sputum Changes, Stridor, Tachypnea, Wheezing, Other Cardiovascular: No Chest Pain, No Palpitations, No Orthopnea, No Paroxysmal Noc. Dyspnea, No Edema, No Lt Headedness, No Other Gastrointestinal: Yes Nausea, Yes Abdominal Pain Genitourinary: No Dysuria, No Frequency, No Incontinence, No Hematuria, No Retention, No Discharge, No Urgency, No Pain, No Flank Pain, No Other, No , No , No , No , No , No , No Musculoskeletal: No Gait Disturbance, No Joint Pain, No Joint Stiffness, No Joint Swelling, No Muscle Pain, No Muscular Weakness, No Pain In:, No Swelling In:, No Other Neurological: No Behavorial Changes, No Bowel/Bladder ControlChng, No Confusion, No Dizziness, No Gait Disturbance, No Headaches, No Impaired Coord/balance, No Memory Loss, No Numbness/Tingling, No Seizures, No Speech Problems, No Tremors, No Visual Changes, No Weakness, No Other Skin: Yes Dry Skin, Yes Rash, Yes Skin Lesion Changes; No Eczema, No Hair Changes, No Lumps, No Mole Changes, No Mottling, No Nail Changes, No Pruritus, No Other, No Acne Physical Exam General: Alert, Cooperative, mild distress HEENT: Atraumatic, Mucous membr. moist/pink Lungs: Clear to auscultation, Normal air movement Heart: S1S2, RRR, no murmurs Abdomen: Soft (tender, distended, ) Extremities: No edema, Normal pulses, Other (marked muscle wasting of chronic liver disease, ) Skin: No rashes, Other (poor skin tone, ashen of liver disease, ) Neuro: Normal speech, Sensation intact, Cranial nerves 3-12 NL Psych/Mental Status: Mood NL Vitals Vitals Vital Signs Date Time Temp Pulse Resp B/P (MAP) Pulse Ox O2 Delivery O2 Flow Rate FiO2 02/10/20 09:06 16 Room Air 02/10/20 07:59 98.6 94 103/71 (82) 98 98.6 Labs Labs Laboratory Tests Test 02/09/20 22:02 02/09/20 23:19 White Blood Count 5.4 x10^3/uL (4.0-11.0) Red Blood Count 3.63 x10^6/uL (4.30-5.70) Hemoglobin 9.7 g/dL (13.0-17.5) Hematocrit 29.6 % (39.0-53.0) Mean Corpuscular Volume 82 fL (79-100) Mean Corpuscular Hemoglobin 27 pg (25-35) Mean Corpuscular Hemoglobin Concent 33 g/dL (31-37) Red Cell Distribution Width 18.2 % (11.5-14.5) Platelet Count 103 x10^3/uL (140-400) Neutrophils (%) (Auto) 92 % (31-73) Lymphocytes (%) (Auto) 4 % (24-48) Monocytes (%) (Auto) 4 % (0-9) Eosinophils (%) (Auto) 0 % (0-3) Basophils (%) (Auto) 0 % (0-3) Neutrophils # (Auto) 5.0 x10^3/uL (1.8-7.7) Lymphocytes # (Auto) 0.2 x10^3/uL (1.0-4.8) Monocytes # (Auto) 0.2 x10^3/uL (0.0-1.1) Eosinophils # (Auto) 0.0 x10^3/uL (0.0-0.7) Basophils # (Auto) 0.0 x10^3/uL (0.0-0.2) Segmented Neutrophils % 61 % (35-66) Band Neutrophils % 29 % (0-9) Lymphocytes % 6 % (24-48) Monocytes % 4 % (0-10) Toxic Vacuolation Slight Platelet Estimate Decreased (ADEQUATE) Anisocytosis Slight Prothrombin Time 15.3 SEC (11.7-14.0) Prothromb Time International Ratio 1.3 (0.8-1.1) Urine Collection Type Unknown Urine Color Milagros Urine Clarity Clear Urine pH 5.0 (<5.0-8.0) Urine Specific [place] 1.015 (1.000-1.030) Urine Protein 30 mg/dL (NEG-TRACE) Urine Glucose (UA) Negative mg/dL (NEG) Urine Ketones (Stick) Negative mg/dL (NEG) Urine Blood Large (NEG) Urine Nitrite Negative (NEG) Urine Bilirubin Small (NEG) Urine Urobilinogen Dipstick 0.2 mg/dL (0.2 mg/dL) Urine Leukocyte Esterase Negative (NEG) Urine RBC >40 /HPF (0-2) Urine WBC 1-4 /HPF (0-4) Urine Bacteria 0 /HPF (0-FEW) Urine Hyaline Casts Many /HPF Urine Mucus Mod /LPF Sodium Level 136 mmol/L (136-145) Potassium Level 4.2 mmol/L (3.5-5.1) Chloride Level 105 mmol/L (98-107) Carbon Dioxide Level 21 mmol/L (21-32) Anion Gap 10 (6-14) Blood Urea Nitrogen 26 mg/dL (8-26) Creatinine 1.5 mg/dL (0.7-1.3) Estimated GFR (Cockcroft-Gault) 48.2 BUN/Creatinine Ratio 17 (6-20) Glucose Level 121 mg/dL (70-99) Lactic Acid Level 1.3 mmol/L (0.4-2.0) Calcium Level 7.5 mg/dL (8.5-10.1) Total Bilirubin 0.9 mg/dL (0.2-1.0) Aspartate Amino Transf (AST/SGOT) 27 U/L (15-37) Alanine Aminotransferase (ALT/SGPT) 12 U/L (16-63) Alkaline Phosphatase 55 U/L (46-116) Total Protein 5.4 g/dL (6.4-8.2) Albumin 2.1 g/dL (3.4-5.0) Albumin/Globulin Ratio 0.6 (1.0-1.7) Lipase 38 U/L (73-393) Ethyl Alcohol Level < 10 mg/dL (0-10) Laboratory Tests Test 02/09/20 22:02 02/09/20 23:19 White Blood Count 5.4 x10^3/uL (4.0-11.0) Red Blood Count 3.63 x10^6/uL (4.30-5.70) Hemoglobin 9.7 g/dL (13.0-17.5) Hematocrit 29.6 % (39.0-53.0) Mean Corpuscular Volume 82 fL (79-100) Mean Corpuscular Hemoglobin 27 pg (25-35) Mean Corpuscular Hemoglobin Concent 33 g/dL (31-37) Red Cell Distribution Width 18.2 % (11.5-14.5) Platelet Count 103 x10^3/uL (140-400) Neutrophils (%) (Auto) 92 % (31-73) Lymphocytes (%) (Auto) 4 % (24-48) Monocytes (%) (Auto) 4 % (0-9) Eosinophils (%) (Auto) 0 % (0-3) Basophils (%) (Auto) 0 % (0-3) Neutrophils # (Auto) 5.0 x10^3/uL (1.8-7.7) Lymphocytes # (Auto) 0.2 x10^3/uL (1.0-4.8) Monocytes # (Auto) 0.2 x10^3/uL (0.0-1.1) Eosinophils # (Auto) 0.0 x10^3/uL (0.0-0.7) Basophils # (Auto) 0.0 x10^3/uL (0.0-0.2) Segmented Neutrophils % 61 % (35-66) Band Neutrophils % 29 % (0-9) Lymphocytes % 6 % (24-48) Monocytes % 4 % (0-10) Toxic Vacuolation Slight Platelet Estimate Decreased (ADEQUATE) Anisocytosis Slight Prothrombin Time 15.3 SEC (11.7-14.0) Prothromb Time International Ratio 1.3 (0.8-1.1) Urine Collection Type Unknown Urine Color Milagros Urine Clarity Clear Urine pH 5.0 (<5.0-8.0) Urine Specific [place] 1.015 (1.000-1.030) Urine Protein 30 mg/dL (NEG-TRACE) Urine Glucose (UA) Negative mg/dL (NEG) Urine Ketones (Stick) Negative mg/dL (NEG) Urine Blood Large (NEG) Urine Nitrite Negative (NEG) Urine Bilirubin Small (NEG) Urine Urobilinogen Dipstick 0.2 mg/dL (0.2 mg/dL) Urine Leukocyte Esterase Negative (NEG) Urine RBC >40 /HPF (0-2) Urine WBC 1-4 /HPF (0-4) Urine Bacteria 0 /HPF (0-FEW) Urine Hyaline Casts Many /HPF Urine Mucus Mod /LPF Sodium Level 136 mmol/L (136-145) Potassium Level 4.2 mmol/L (3.5-5.1) Chloride Level 105 mmol/L (98-107) Carbon Dioxide Level 21 mmol/L (21-32) Anion Gap 10 (6-14) Blood Urea Nitrogen 26 mg/dL (8-26) Creatinine 1.5 mg/dL (0.7-1.3) Estimated GFR (Cockcroft-Gault) 48.2 BUN/Creatinine Ratio 17 (6-20) Glucose Level 121 mg/dL (70-99) Lactic Acid Level 1.3 mmol/L (0.4-2.0) Calcium Level 7.5 mg/dL (8.5-10.1) Total Bilirubin 0.9 mg/dL (0.2-1.0) Aspartate Amino Transf (AST/SGOT) 27 U/L (15-37) Alanine Aminotransferase (ALT/SGPT) 12 U/L (16-63) Alkaline Phosphatase 55 U/L (46-116) Total Protein 5.4 g/dL (6.4-8.2) Albumin 2.1 g/dL (3.4-5.0) Albumin/Globulin Ratio 0.6 (1.0-1.7) Lipase 38 U/L (73-393) Ethyl Alcohol Level < 10 mg/dL (0-10) VTE Prophylaxis Ordered VTE Prophylaxis Devices: No VTE Pharmacological Prophylaxi: No Assessment/Plan Assessment/Plan acute on chronic abdominal pain small bowel obstruction , resolving, hepatic failure, poor control, gets outpatient paracentesis regularly, poor candidate for TIPS on prior consult he has marked emotional issues, and wants to leave AMA to check on his dog, he spent an inordinate amount of my time discussing a tree falling on his mower and he was worried about his dog and wanted to leave for just an hour to check on everything. Justicifation of Admission Dx: Justifications for Admission: Justification of Admission Dx: Yes AAMIR GREER MD Feb 10, 2020 12:25
[2020-02-10] MEDS ORDERED: traMADol 50 MG TABLET PO PRN (12:30)
[2020-02-10] MEDS ORDERED: LACTULOSE 20 GM/30 ML SOLUTION. PO PRN (12:30)
[2020-02-10] MEDS: FUROSEMIDE 40 MG TABLET. PO SCH ×2 (12:42→12:48)
--- NOTE | 2020-02-10 13:31 | NUR ---
Patient had accident at house and decided to leave AMA. Dr. Driscoll and this RN discussed medical advice regarding diagnosis and plan of action but patient still decided to leave AMA. Form signed Iv discontinued and patient escorted out via ambulation by Dee PIERCE
[2020-02-10] MEDS ORDERED: ENOXAPARIN 40 MG/0.4 ML SYRINGE. SQ SCH (14:00)
[2020-02-10] MEDS ORDERED: rifAXIMin 550 MG TABLET PO SCH (21:00)
[2020-02-11] MEDS ORDERED: PANTOPRAZOLE 40 MG TABLET.DR. PO SCH (07:30)
[2020-02-12] MEDS ORDERED: SPIRONOLACTONE 25 MG TABLET PO SCH (09:00)
== END 2020-02-10 13:35 | disposition left against medical advice (07) | DRG 390 ==
LOC: ER 20:50 → 4 NORTH 02-10 01:21
PROVIDERS: ADMIT Internal Medicine; ATTEND Internal Medicine
DX: K56.609 Unspecified intestinal obstruction, unspecified as to partial versus complete obstruction (principal); K52.9 Noninfective gastroenteritis and colitis, unspecified; K56.7 Ileus, unspecified; K70.31 Alcoholic cirrhosis of liver with ascites; K72.90 Hepatic failure, unspecified without coma; G89.29 Other chronic pain; Z82.49 Family history of ischemic heart disease and other diseases of the circulatory system; Z87.11 Personal history of peptic ulcer disease; Z96.659 Presence of unspecified artificial knee joint; K21.9 Gastro-esophageal reflux disease without esophagitis; Z88.0 Allergy status to penicillin; Z88.7 Allergy status to serum and vaccine; Z88.8 Allergy status to other drugs, medicaments and biological substances; Z79.899 Other long term (current) drug therapy; Z53.29 Procedure and treatment not carried out because of patient's decision for other reasons
CPT/HCPCS: 36415; 74177; 80053; 81001; 83605; 83690; 85007; 85025; 85610; 87040; 96365; 96375; G0480; J2270; J3010; J3490; J7030; Q9967; 99285-25; G0378